=== PATIENT | female | born 1955 | race Caucasian/White ===

== ENCOUNTER 2019-06-16 07:27 | Emergency (ER) | payer BC, SELFPAY ==
--- NOTE | ~2019-06-16 | XR_ITS ---
EXAMINATION: XR shoulder LT min 2V DATE: 06/16/2019 08:39 INDICATION: Left shoulder pain. TECHNIQUE: 4 views of left shoulder were obtained. COMPARISON: None. FINDINGS: Bone alignment is normal. There is a nondisplaced fracture of greater tuberosity. There is mild osteoarthritis of acromioclavicular joint and glenohumeral joint. IMPRESSION: 1. Nondisplaced fracture of greater tuberosity of proximal humerus. 2. Polyarticular osteoarthritis. Reviewed, dictated and finalized at location A. REPAIRER
[2019-06-16 07:35] VITALS: BP 182/83; PULSE 90; RESP 18; TEMP 36.2; O2SAT 98
--- NOTE | 2019-06-16 09:06 | ED.UPPEXIN ---
HPI - Extremity Injury (Upper) General Chief Complaint: Extremity Injury, Upper Stated Complaint: left shoulder injury Time Seen by Provider: 06/16/19 08:06 Source: patient Mode of arrival: ambulatory Limitations: no limitations History of Present Illness HPI narrative: Patient presents with chief complaint of pain to the left shoulder that began yesterday after hyperextending her left shoulder behind her. Patient states since his pain to her shoulder with any range of motion. Patient states she has been up crying due to discomfort throughout the night. Patient states she has been taking ibuprofen every 4 hours without relief. Patient denies any head impact or other areas of injury. Patient denies prior fracture or injury. Related Data Home Medications Medication Instructions Recorded Confirmed atorvastatin 06/16/19 dulaglutide [Trulicity] mg SUBCUT 06/16/19 ferrous sulfate 06/16/19 gabapentin 06/16/19 lisinopril 06/16/19 metformin mg 06/16/19 omeprazole 06/16/19 verapamil mg PO 06/16/19 Allergies Allergy/AdvReac Type Severity Reaction Status Date / Time No Known Allergies Allergy Verified 06/16/19 09:09 Review of Systems Review of Systems: Narrative: CONSTITUTIONAL: Denies fever, chills, or sweats. EYES: Denies visual changes, redness, or discharge. ENT: Denies rhinorrhea, congestion, sore throat, or otalgia. CARDIOVASCULAR: Denies chest pain, palpitations, or edema. RESPIRATORY: Denies cough or dyspnea. GASTROINTESTINAL: Denies abdominal pain, nausea, vomiting, or diarrhea. GENITOURINARY: Denies dysuria or hematuria. SKIN: Denies rash or itching. MUSCULOSKELETAL: Reports left shoulder pain denies back pain, or myalgia. NEUROLOGIC: Denies headache, numbness, dizziness, or weakness. PSYCHIATRIC: Denies anxiety or depression. PMFSH Family History Family History (Updated 08/15/16 @ 23:56 by DOCTOR UNKNOWN) Mother Family history of chronic obstructive pulmonary disease, Onset Age: 73 Patient's mother is Father Patient's father is Social History Social History Second hand tobacco smoke exposure: No Alcohol intake: current Gender identity (if verbalized by the patient): Female Exam Narrative: Exam Narrative: GENERAL: Well-appearing, well-nourished, and in no acute distress. HEAD: Normocephalic, atraumatic. EYES: PERRLA and EOMI. ENT: Nares clear, no rhinorrhea or epistaxis. Mucous membranes moist. Oropharynx without tonsillar hypertrophy exudate or other lesions. Bilateral TMs pearly knapp nonbulging NECK: Supple. No adenopathy or masses. No carotid bruits or JVD CHEST: Clear to auscultation. No respiratory distress. No wheezes rales or rhonchi HEART: Regular rate and rhythm. No murmur heard. Normal peripheral pulses. ABDOMEN: Soft, nontender, nondistended, normal active bowel sounds. EXTREMITIES: Appearance normal. Pain with palpation around the proximal humerus. Range of motion intact but painful especially abduction. No edema. SKIN: Warm, dry, no rash. No ecchymosis or erythema. NEURO: No focal deficits. Alert and oriented x3. PSYCH: Normal mood and affect. Course Vital Signs Vital signs: Vital Signs Temperature 97.2 F L 06/16/19 07:35 Pulse Rate 90 06/16/19 07:35 Respiratory Rate 18 06/16/19 07:35 Blood Pressure 182/83 H 06/16/19 07:35 Pulse Oximetry 98 06/16/19 07:35 Temperature 98.1 F 06/16/19 09:07 Pulse Rate 84 06/16/19 10:07 Respiratory Rate 16 06/16/19 10:07 Blood Pressure 124/72 06/16/19 10:07 Pulse Oximetry 98 06/16/19 10:07 MDM - Extremity Injury (Upper) MDM Narrative Medical decision making narrative: Patient has nondisplaced fractures of the greater tuberosity of her left shoulder. Patient placed in the immobilizer and given referral to follow-up with agricultural systems specialist within 1 week. Patient instructed not to use children's who evaluated and cleared by orthopedic speci
[2019-06-16 09:07] VITALS: BP 127/71; PULSE 85; RESP 20; TEMP 36.7; O2SAT 98
[2019-06-16 10:07] VITALS: BP 124/72; PULSE 84; RESP 16; O2SAT 98
== END 2019-06-16 10:06 | disposition home or self-care (01) ==
PROVIDERS: Emergency Provider Emergency Medicine; PCP Internal Medicine
DX: S42.255A Nondisplaced fracture of greater tuberosity of left humerus, initial encounter for closed fracture (principal); M19.012 Primary osteoarthritis, left shoulder; X50.9XXA Other and unspecified overexertion or strenuous movements or postures, initial encounter
CPT/HCPCS: 73030; 99284

== ENCOUNTER 2020-06-22 09:20 | Emergency (ER) | payer BC, SELFPAY ==
--- NOTE | ~2020-06-22 | US_ITS ---
EXAMINATION: US pelvic complete DATE: 06/22/2020 10:33 INDICATION: Postmenopausal bleeding Comparison:No prior studies for comparison. TECHNIQUE: Multiple transabdominal and endovaginal sonographic images of the pelvis performed. FINDINGS: The uterus measures 7.8 x 6.2 x 4.8 cm. The endometrial complex measures 2.2 cm. The right ovary measures 2.8 x 2 x 2.1 cm and the left ovary is not visualized. There are small folli cles in each ovary.Normal doppler signal in both ovaries. There is no free fluid in the pelvis. There are no abnormal masses seen on either side. IMPRESSION: 1. Thickened endomtrial complex. The differential diagnosis includes endometrial hyperplasia, polyp a nd carcinoma. Biopsy is recommended. Reviewed, dictated and finalized at location B. PS CONSULTANT IMPRESSION: 1. Thickened endomtrial complex. The differential diagnosis includes endometria l hyperplasia, polyp and carcinoma. Biopsy is recommended.
[2020-06-22 09:33] VITALS: BP 204/102; PULSE 105; RESP 16; TEMP 35.7; O2SAT 97
--- NOTE | 2020-06-22 09:46 | ED.FEMALEGU ---
HPI - Female Genitourinary General Chief complaint: Vaginal Bleeding Stated complaint: Vaginal Bleeding Time Seen by Provider: 06/22/20 09:46 Source: patient Mode of arrival: ambulatory Limitations: no limitations History of Present Illness HPI Narrative: 65 years old white female presents with heavy vaginal bleeding with blood clots noticed 7-hour prior to arrival, gradually slowing down. Patient is menopausal for the last 10 years, been having intermittent vaginal bleeding which is mild and usually last 1 or 2 days then resolves. This 1 is the worst. Last vaginal bleeding was 6 months ago. Patient did not see an SIGNAL MAINTAINER for that. Patient denies any fever, chills, nausea, vomiting, abdominal pain, back pain, urinary symptoms. History of diabetes, hypertension, hyperlipidemia, cholecystectomy, does not take blood thinner, smoker, social alcohol intake Related Data Home Medications Medication Instructions Recorded Confirmed ferrous sulfate 06/16/19 04/24/20 Allergies Allergy/AdvReac Type Severity Reaction Status Date / Time No Known Allergies Allergy Verified 06/22/20 09:37 Review of Systems Review of Systems: Narrative: CONSTITUTIONAL: Denies fever, chills, or sweats. EYES: Denies visual changes, redness, or discharge. ENT: Denies rhinorrhea, congestion, sore throat, or otalgia. CARDIOVASCULAR: Denies chest pain, palpitations, or edema. RESPIRATORY: Denies cough or dyspnea. GASTROINTESTINAL: Denies abdominal pain, nausea, vomiting, or diarrhea. GENITOURINARY: Denies dysuria or hematuria. SKIN: Denies rash or itching. MUSCULOSKELETAL: Denies back pain, joint pain, or myalgia. NEUROLOGIC: Denies headache, numbness, or weakness. PSYCHIATRIC: Denies anxiety or depression. [facility] Past Medical History Medical History (Updated 06/22/20 @ 12:29 by Janene Combs MD) Diabetes 1.5, managed as type 2 Greater tuberosity of humerus fracture (06/15/19) Hyperthyroidism Family History Family History Mother Family history of chronic obstructive pulmonary disease, Onset Age: 73 Patient's mother is Father Patient's father is Unknown Hypertension Cancer Social History Social History Smoking packs per day: 1 Smoking cigarettes per day: 20.0 Years smoked: 30 Smoking pack-years: 30.00 Smoking status: Current every day smoker Second hand tobacco smoke exposure: No Alcohol intake: current Substance use: never Gender identity (if verbalized by the patient): Female Exam Narrative: Exam Narrative: General appearance: Well-developed, well-nourished Skin: Normal color Head: Normocephalic, nontraumatic Eyes: Clear conjunctiva ENT: Oropharynx normal, ears normal, nose normal Neck: Supple, nontender Chest and respiratory: Airway patent, no respiratory distress, no accessory muscle use Heart: Regular rate/rhythm Abdomen: Soft, nontender, no organomegaly, quiet bowel sounds Vascular: Normal peripheral pulses, normal capillary refill. Musculoskeletal: Normal range of motion, nontender back Neurologic: Alert and oriented ?3, TRAPPER ANIMAL is normal as tested, no gross motor deficit : External Female Exam: normal external appearance and Abnormal introitus Speculum Exam - Vagina: normal appearance of the vagina and vaginal bleeding (Trace of vaginal blood and a vaginal pouch, not actively bleeding) Speculum Exam - Cervix: normal appearance of the cervix, normal palpation and Cervical os closed Course Course Emergency Course: Stable Consultations Consultation #1: Dr. Pearson/SIGNAL MAINTAINER on-call Cole
--- NOTE | 2020-06-22 10:05 | PC.NURSE ---
pt in ultrasound dept. will start iv and fluids when back in dept
[2020-06-22] MEDS: SODIUM CHLORIDE 0.9% IV 1,000 ML 999 ML IV CONT (10:32)
[2020-06-22 10:43] LABS: Basophils Absolute Auto 0.1 K/mm3 (0.0-0.1); Basophils Percent Auto 0.4 % (0.2-1.2); Eosinophils Absolute Auto 0.1 K/mm3 (0-0.3); Eosinophils Percent Auto 0.8 % (0-4.4); Hematocrit 44.3 % (37.0-47.0); Hemoglobin 14.6 g/dL (12.0-15.0); Immature Granulocyte Absolute 0.06 K/mm3 (0.00-0.031); Immature Granulocyte Percent A 0.5 % (0-0.5); Lymphocytes Absolute Auto 2.81 K/mm3 (0.9-3.2); Lymphocytes Percent Auto 22.3 % (18.3-44.2); Mean Corpuscular Hemoglobin 29.9 pg (26-34); Mean Corpuscular Volume 90.6 fl (80-100); Mean Platelet Volume 12.3 fl (7.4-10.4); Monocytes Absolute Auto 0.7 K/mm3 (0.1-0.6); Monocytes Percent Auto 5.6 % (2.6-8.5); Neutrophils Absolute Auto 8.9 K/mm3 (1.3-6.7); Neutrophils Percent Auto 70.4 % (45.5-73.1); Platelet Count Result 221 k/mm3 (150-375); Red Blood Count 4.89 M/mm3 (4.2-5.4); Red Cell Distribution Width 14.4 % (11.5-14.5); White Blood Count 12.6 K/mm3 (4.5-10.0)
[2020-06-22 10:55] LABS: Alanine Aminotransferase 22 U/L (4-35); Albumin Level 4.2 g/dL (3.5-5.1); Alkaline Phosphatase 63 U/L (38-126); Anion Gap 7 mmol/L (8-16); Aspartate Amino Transferase 26 U/L (14-36); Bilirubin,Total 0.5 mg/dL (0.2-1.3); Blood Urea Nitrogen 10 mg/dL (7-17); Calcium 9.7 mg/dL (8.4-10.2); Carbon Dioxide 26 mmol/L (22-30); Chloride 106 mmol/L (98-107); Estimated CRCL calculation 99 ml/min; Estimated Glomerular Filt Rate > 60; Glucose 187 mg/dL (65-105); Sodium 139 mmol/L (137-145)
--- NOTE | 2020-06-22 11:02 | PC.NURSE ---
knapp and speckled urine tubes sent to lab with pt label. no ua ordered at this time.
[2020-06-22 11:45] VITALS: BP 164/78; PULSE 98; RESP 16; O2SAT 100
[2020-06-22 12:35] VITALS: BP 158/84; PULSE 94; RESP 16; O2SAT 97
== END 2020-06-22 12:35 | disposition home or self-care (01) ==
PROVIDERS: Emergency Provider Emergency Medicine; PCP Internal Medicine
DX: N93.9 Abnormal uterine and vaginal bleeding, unspecified (principal); E13.9 Other specified diabetes mellitus without complications; Z79.84 Long term (current) use of oral hypoglycemic drugs; E05.90 Thyrotoxicosis, unspecified without thyrotoxic crisis or storm; F17.210 Nicotine dependence, cigarettes, uncomplicated; R93.89 Abnormal findings on diagnostic imaging of other specified body structures
CPT/HCPCS: 36415; 76856; 80053; 85025; 86850; 86900; 86901; 96360; 96361; 99284; J7030

== ENCOUNTER 2022-01-30 07:29 | Outpatient (CLI) | payer BC, SELFPAY ==
--- NOTE | ~2022-01-30 | DEXA_ITS ---
Bone Density Report Name: RHONDA WISEMAN Age: 66 Sex: Female Ethnicity: White Date of : 1955 Indication: postmenopausal; screening for osteoporosis; height loss; Referring Provider: Andrea Chandler Study: Bone densitometry was performed. Exam Date: January 30, 2022 Accession number: [id number] Bone Density: Region BMD T-score Z-score Classification AP Spine(L2, L3, L4) 1.007 -0.7 1.2 Normal Femoral Neck (Left) 0.690 -1.4 0.1 Osteopenia Total Hip (Left) 0.855 -0.7 0.5 Normal Femoral Neck (Right) 0.724 -1.1 0.4 Osteopenia Total Hip (Right) 0.800 -1.2 0.1 Osteopenia Femoral Neck Mean 0.707 -1.3 0.2 Osteopenia Total Hip Mean 0.827 -0.9 0.3 Normal World Health Organization criteria for BMD impression classify patients as: Normal (T-score at or above -1.0), Osteopenia (T-score between -1.0 and -2.5), or Osteoporosis (T-score at or below -2.5). 10-year Fracture Risk(1): Major Osteoporotic Fracture 8.2% Hip Fracture 1.3% Reported Risk Factors: [place] (), Neck BMD=0.690, BMI=33.7, smoking (1) FRAX(R) Version 3.08. Fracture probability calculated for an untreated patient. Fracture probability may be lower if the patient has received treatment. Clinical Information Provided by Patient: Smokes Patient maximum height was 63 Menopause Age: 52 No regular weight bearing exercise Drinks caffeinated beverages Onset of menses at age 18 Number of children 1 Impression: The patient has low bone mass, based on the Left Femoral Neck T-score. The patient has risk factors, including: smoking. Discussion: BONE DENSITY IS LOW AT ONE OR MORE SKELETAL SITES. This patient's lowest T-score is low at one or more skeletal sites. It meets the World Health Organization's (WHO) criteria for ?low bone mass? (T-score between -1.0 and -2.5). The patient's 10-year risk of fracture as calculated by FRAX is less than the threshold where pharmacological therapy is recommended by the National Osteoporosis Foundation (NOF). However, all treatment decisions require clinical judgment and consideration of individual patient factors, including patient preferences, comorbidities, previous drug use, risk factors not captured in the FRAX model (e.g., frailty, falls, vitamin D deficiency, increased bone turnover, interval significant decline in bone density) and possible under or overestimation of fracture risk by FRAX. The patient should follow a healthful lifestyle (good nutrition with adequate calcium and vitamin D, and appropriate weight-bearing exercise). Follow-Up: Consider repeating this study in 2 to 3 years to reassess this patient's status, or sooner if there is some new clinical indication. Reported by: Dr. Adiel Hunter on 01/30/2022 8:26:00 AM.
--- NOTE | ~2022-01-30 | MM_ITS ---
EXAMINATION: MM screening christina BI w juan HISTORY: Baseline screening mammogram TECHNIQUE: Craniocaudal and mediolateral oblique 3-D tomosynthesis images were obtained and synthetic 2-D images were generated. CAD analysis was submitted and interpreted. COMPARISON: None, baseline BREAST PARENCHYMAL COMPOSITION: There are scattered areas of fibroglandular density. FINDINGS: There is no suspicious mass, calcification, or architectural distortion to suggest malignan cy in either breast. A mass in the outer left breast appears to contain central fat, consistent with an intramammary lymph node. IMPRESSION: 1. No mammographic evidence of malignancy. 2. Recommend routine screening mammography in one year. BI-RADS Category 2: Benign finding(s). Reviewed, dictated and finalized at location A.
--- NOTE | ~2022-01-30 | XR_ITS ---
XR chest 2V DATE: 01/30/2022 08:35 INDICATION: Chronic cough. Smoker. TECHNIQUE: 2 views COMPARISON: 07/12/2015 PA and lateral chest FINDINGS: Normal heart size. Aortic calcification and mild unfolding. No hilar or mediastinal enlarge ment. No pulmonary infiltrate or consolidation, pleural effusion or pulmonary vascular congestion or pneumo thorax. Osteopenia. Mild scoliosis and degenerative change of the thoracic spine. IMPRESSION: No active cardiopulmonary disease Reviewed, dictated and finalized at location B.
[2022-01-30 07:41] LABS: Basophils Absolute Auto 0.05 K/mm3 (0.00-0.10); Basophils Percent Auto 0.5 % (0.0-1.0); Eosinophils Absolute Auto 0.17 K/mm3 (0.02-0.50); Eosinophils Percent Auto 1.6 % (1.0-6.0); Hematocrit 44.8 % (35.0-49.0); Hemoglobin 14.6 g/dL (12.0-15.0); Immature Granulocyte Absolute 0.05 K/mm3 (0.00-0.00); Immature Granulocyte Percent A 0.5 % (0.0-0.0); Lymphocytes Percent Auto 21.6 % (18.0-42.0); Mean Corpuscular HGB Conc 32.6 g/dL (32.0-36.0); Mean Corpuscular Volume 95.1 fL (78.0-102.0); Mean Platelet Volume 12.3 fl (9.2-11.8); Monocytes Absolute Auto 0.76 K/mm3 (0.10-0.90); Monocytes Percent Auto 7.1 % (2.0-11.0); Neutrophils Absolute Auto 7.3 K/mm3 (1.7-7.2); Neutrophils Percent Auto 68.7 % (50.0-70.0); Platelet Count Result 179 K/mm3 (150-420); Red Blood Count 4.71 M/mm3 (4.20-5.40); Red Cell Distribution Width 13.9 % (11.6-14.4); White Blood Count 10.7 K/mm3 (4.8-10.8)
[2022-01-30 08:16] LABS: Alanine Aminotransferase 20 U/L (14-59); Albumin Level 3.8 g/dL (3.4-5.0); Alkaline Phosphatase 75 U/L (46-116); Anion Gap 7 mmol/L (8-16); Aspartate Amino Transferase 13 U/L (15-37); Bilirubin,Total 0.2 mg/dL (0.00-1.00); Blood Urea Nitrogen 12 mg/dL (7-18); Calcium 8.7 mg/dL (8.5-10.1); Carbon Dioxide 29 mmol/L (21-32); Chloride 105 mmol/L (98-108); Cholesterol 151 mg/dL (0-200); Estimated Glomerular Filt Rate > 60; Glucose 212 mg/dL (70-99); HDL Direct 48 mg/dL (40-60); LDL Cholesterol Calculated 66 mg/dL (<130); Osmolality Calculated 297 mOsm/kg (285-295); Potassium 4.3 mmol/L (3.5-5.1); Sodium 141 mmol/L (136-145); Thyroid Stimulating Hormone 3.49 uIU/mL (0.36-3.74); Total Protein 6.7 g/dL (6.4-8.2); Triglycerides 186 mg/dL (0-150)
[2022-01-30 08:47] LABS: Add Urine Microscopic? YES; Appearance Urine Clear (Clear); Bilirubin Urine Negative (Negative); Blood Urine 2+ (Negative); Color Urine Light Yellow (Yellow); Glucose Urine UA Trace (Negative); Ketones Urine Negative (Negative); Leukocyte Esterase Ur 1+ (Negative); Nitrate Urine Positive (Negative); Protein Urine 2+ (Negative); Specific Grav Ur >= 1.030 (1.010-1.020); Urobilinogen Urine 0.2 mg/dL (0.2-1.0)
[2022-01-30 08:52] LABS: Squamous Epithelial Cell Urine Few /hpf (Few)
[2022-01-30 08:53] LABS: Bacteria Urine 2+ /hpf
== END 2022-01-30 07:30 | disposition home or self-care (01) ==
LOC: CHSIMG 07:30
PROVIDERS: PCP Internal Medicine; Visit Provider Internal Medicine
DX: I10 Essential (primary) hypertension (principal); E78.5 Hyperlipidemia, unspecified; R05.3 Chronic cough; Z12.31 Encounter for screening mammogram for malignant neoplasm of breast
CPT/HCPCS: 36415; 71046; 77063; 77067; 77080; 80053; 80061; 81001; 84443; 85025

== ENCOUNTER 2022-02-14 09:34 | Outpatient (CLI) | payer MEDICARE, SELFPAY ==
--- NOTE | ~2022-02-14 | CT_ITS ---
EXAMINATION:CT lung screening DATE: 02/14/2022 09:53 INDICATION: Persistent history of nicotine dependence. Current smoker with 50 pack year history. TECHNIQUE: Computed tomography (CT) of the chest was performed without intravenous contrast. Automate d exposure control and iterative reconstruction technique were employed. The dose-length product (DLP ) was 279.39 mGy-cm. COMPARISON: None. FINDINGS: There is mild emphysema. There is mild atelectasis on the left. There is a 3 mm nodule in l eft lower lobe. No pleural effusion. The heart size is normal. There are coronary artery calcificatio ns. No pericardial effusion. There is diffuse hepatic steatosis. There is a 1.9 cm mass in left adren al gland measuring low-attenuation, consistent with an adenoma. There are cysts in left kidney measur ing up to 3.4 cm. There are changes of cholecystectomy. There is mild thoracic spondylosis. IMPRESSION: 1. Lung-RADS category 2: Benign appearance or behavior. Continue annual screening with noncontrast lo w-dose chest CT in 12 months. Reviewed, dictated and finalized at location B. IMPRESSION: 1. Lung-RADS category 2: Benign appearance or behavior. Continue annual screeni ng with noncontrast low-dose chest CT in 12 months.
== END 2022-02-14 09:35 | disposition home or self-care (01) ==
LOC: CHSIMG 09:36
PROVIDERS: PCP Internal Medicine; Visit Provider Internal Medicine
DX: Z12.2 Encounter for screening for malignant neoplasm of respiratory organs (principal); Z87.891 Personal history of nicotine dependence
CPT/HCPCS: 71271

== ENCOUNTER 2023-02-02 07:47 | Outpatient (CLI) | payer MEDICARE, MEDICAID, SELFPAY ==
--- NOTE | ~2023-02-02 | MM_ITS ---
EXAMINATION: MM screening [facility] BI w juan HISTORY: Screening mammogram TECHNIQUE: Craniocaudal and mediolateral oblique 3-D tomosynthesis images were obtained and synthetic 2-D images were generated. CAD analysis was submitted and interpreted. COMPARISON: 01/30/2022 bilateral screening mammogram BREAST PARENCHYMAL COMPOSITION: There are scattered areas of fibroglandular density. FINDINGS: New grouped granular microcalcifications are noted in the subareolar area approximately on the left. Diagnostic left mammogram with medication views and left breast ultrasound examination are recommended. Otherwise there is no evidence of suspicious mass, calcification, or architectural distortion to sug gest malignancy in either breast. There has been no other suspicious interval change. IMPRESSION: 1. New grouped granular microcalcifications in the subareolar area of left breast 2. Diagnostic left mammogram with magnification views and left breast ultrasound examination are kena mmended BI-RADS Category 0: Incomplete: Needs additional imaging evaluation. Reviewed, dictated and finalized at location A. IMPRESSION: 1. New grouped granular microcalcifications in the subareolar area of left serge st 2. Diagnostic left mammogram with magnification views and left breast ultrasoun d examination are recommended BI-RADS Category 0: Incomplete: Needs additional imaging evaluation.
== END 2023-02-02 07:48 | disposition home or self-care (01) ==
LOC: CHSIMG 07:49
PROVIDERS: PCP Internal Medicine; Visit Provider Internal Medicine
DX: Z12.31 Encounter for screening mammogram for malignant neoplasm of breast (principal)
CPT/HCPCS: 77063; 77067

== ENCOUNTER 2023-02-10 08:59 | Outpatient (CLI) | payer BC, SELFPAY ==
--- NOTE | ~2023-02-10 | MM_ITS ---
EXAMINATION: MM diagnostic christina LT w juan HISTORY: Left breast calcifications on screening mammogram TECHNIQUE: Additional 3-D tomosynthesis images of the left breast were performed and synthetic 2-D im ages were generated. Magnification views are also obtained. CAD analysis was submitted and interprete d. COMPARISON: 02/02/2023, 01/30/2022 FINDINGS: The calcifications in question are demonstrated to be within the skin of the left breast. N o suspicious mass, calcification, or architectural distortion are identified. IMPRESSION: 1. No mammographic evidence of malignancy. 2. Recommend routine screening mammography in one year. BI-RADS Category 2: Benign finding(s). Reviewed, dictated and finalized at location A.
== END 2023-02-10 09:00 | disposition home or self-care (01) ==
LOC: CHSIMG 09:01
PROVIDERS: PCP Internal Medicine; Visit Provider Internal Medicine
DX: R92.8 Other abnormal and inconclusive findings on diagnostic imaging of breast (principal)
CPT/HCPCS: 77061; 77065; G0279

== ENCOUNTER 2023-03-26 16:16 | Outpatient (CLI) | payer MEDICARE, MEDICAID, SELFPAY ==
[2023-03-26 16:43] LABS: Basophils Absolute Auto 0.04 K/mm3 (0.00-0.10); Basophils Percent Auto 0.3 % (0.0-1.0); Eosinophils Absolute Auto 0.06 K/mm3 (0.02-0.50); Eosinophils Percent Auto 0.5 % (1.0-6.0); Immature Granulocyte Absolute 0.07 K/mm3 (0.00-0.00); Immature Granulocyte Percent A 0.6 % (0.0-0.0); Lymphocytes Absolute Auto 2.39 K/mm3 (1.10-4.50); Mean Corpuscular HGB Conc 31.6 g/dL (32.0-36.0); Mean Corpuscular Hemoglobin 30.3 pg (27.0-31.0); Mean Platelet Volume 11.9 fl (9.2-11.8); Monocytes Percent Auto 7.1 % (2.0-11.0); Neutrophils Absolute Auto 9.1 K/mm3 (1.7-7.2); Neutrophils Percent Auto 72.5 % (50.0-70.0); Platelet Count Result 252 K/mm3 (150-420); Red Blood Count 3.96 M/mm3 (4.20-5.40); Red Cell Distribution Width 14.1 % (11.6-14.4); White Blood Count 12.6 K/mm3 (4.8-10.8)
[2023-03-26 18:34] LABS: Alanine Aminotransferase 8 U/L (14-59); Albumin Level 3.3 g/dL (3.4-5.0); Alkaline Phosphatase 90 U/L (46-116); Amylase 33 U/L (25-115); Anion Gap 9 mmol/L (8-16); Aspartate Amino Transferase 10 U/L (15-37); Bilirubin,Total 0.3 mg/dL (0.00-1.00); Blood Urea Nitrogen 19 mg/dL (7-18); Calcium 8.9 mg/dL (8.5-10.1); Carbon Dioxide 30 mmol/L (21-32); Chloride 103 mmol/L (98-108); Estimated Glomerular Filt Rate > 60; Glucose 174 mg/dL (70-99); Lipase 27 U/L (16-77); Osmolality Calculated 300 mOsm/kg (285-295); Potassium 3.6 mmol/L (3.5-5.1); Sodium 142 mmol/L (136-145); Total Protein 6.3 g/dL (6.4-8.2)
[2023-03-28 21:54] LABS: H pylori, Urea Breath NOT DETECTED (NOT DETECTED)
[2023-03-31 20:12] LABS: Rotavirus Stool Not Detected
== END 2023-03-26 16:17 | disposition home or self-care (01) ==
PROVIDERS: PCP Internal Medicine; Visit Provider Nurse Practitioner Family
DX: R19.7 Diarrhea, unspecified (principal); R10.84 Generalized abdominal pain
CPT/HCPCS: 36415; 80053; 82150; 83013; 83690; 84376; 85025; 87045; 87177; 87209; 87324; 87425; 87427; 87449

== ENCOUNTER 2023-03-30 08:20 | Outpatient (CLI) | payer MEDICARE, MEDICAID, SELFPAY ==
--- NOTE | ~2023-03-30 | CT_ITS ---
EXAMINATION: CT abdomen pelvis w con DATE: 03/30/2023 08:49 INDICATION: Abdominal pain. TECHNIQUE: Computed tomography (CT) of the abdomen and pelvis was performed with 100 mL Omnipaque 350 intravenous contrast. Automated exposure control and iterative reconstruction technique were employe d. The dose-length product was 943.42 mGy-cm. COMPARISON: Chest CT 02/14/2022 FINDINGS: The visualized portions of the lung bases demonstrate mild atelectasis. No pleural effusion . The heart size is normal. No pericardial effusion. The liver is normal. There are changes of cholec ystectomy. The liver, pancreas, and right adrenal gland are normal. There is a 2.2 cm mass in left ad renal gland measuring soft tissue attenuation, stable from 02/14/2022 when it measured low-attenuation on noncontrast CT, consistent with an adenoma. There are cysts in the kidneys measuring up to 4.7 cm on the left. There is liquid stool in the colon. The appendix is not visualized. There is a moderate volume of ascites. There is nodularity in the peritoneum with confluent caking of the greater omentu m and enlargement of the ovaries, consistent with peritoneal carcinomatosis. There is subcutaneous fa t stranding in right lower quadrant, consistent with inflammation. There is mild lumbar spondylosis. IMPRESSION: 1. Peritoneal carcinomatosis with moderate volume of ascites. Diagnostic paracentesis is recommended. Reviewed, dictated and finalized at location E. 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 Peritoneal carcinomatosis with moderate volume of ascites. Diagnostic parace ntesis is recommended.
== END 2023-03-30 08:21 | disposition home or self-care (01) ==
LOC: CHSIMG 08:22
PROVIDERS: PCP Internal Medicine; Visit Provider Internal Medicine
DX: R10.9 Unspecified abdominal pain (principal); C80.0 Disseminated malignant neoplasm, unspecified
CPT/HCPCS: 74177; Q9967

== ENCOUNTER 2023-06-01 08:04 | Outpatient (CLI) | payer MEDICARE, SELFPAY ==
[2023-06-01 08:22] LABS: Basophils Absolute Auto 0.09 K/mm3 (0.00-0.10); Basophils Percent Auto 0.9 % (0.0-1.0); Eosinophils Absolute Auto 0.07 K/mm3 (0.02-0.50); Eosinophils Percent Auto 0.7 % (1.0-6.0); Hematocrit 39.5 % (35.0-42.0); Hemoglobin 12.1 g/dL (11.7-13.8); Immature Granulocyte Absolute 0.08 K/mm3 (0.00-0.00); Immature Granulocyte Percent A 0.8 % (0.0-0.0); Lymphocytes Absolute Auto 2.08 K/mm3 (1.10-4.50); Lymphocytes Percent Auto 21.5 % (18.0-42.0); Mean Corpuscular HGB Conc 30.6 g/dL (32.0-36.0); Mean Corpuscular Hemoglobin 28.1 pg (27.0-31.0); Mean Corpuscular Volume 91.9 fL (78.0-102.0); Mean Platelet Volume 11.7 fl (9.2-11.8); Monocytes Absolute Auto 0.76 K/mm3 (0.10-0.90); Monocytes Percent Auto 7.9 % (2.0-11.0); Neutrophils Absolute Auto 6.6 K/mm3 (1.7-7.2); Neutrophils Percent Auto 68.2 % (50.0-70.0); Platelet Count Result 245 K/mm3 (150-420); Red Cell Distribution Width 17.1 % (11.6-14.4); White Blood Count 9.7 K/mm3 (4.8-10.8)
[2023-06-01 09:09] LABS: Alanine Aminotransferase 17 U/L (14-59); Albumin Level 3.4 g/dL (3.4-5.0); Alkaline Phosphatase 63 U/L (46-116); Anion Gap 9 mmol/L (8-16); Aspartate Amino Transferase 13 U/L (15-37); Bilirubin,Total 0.3 mg/dL (0.00-1.00); Blood Urea Nitrogen 7 mg/dL (7-18); Calcium 8.5 mg/dL (8.5-10.1); Carbon Dioxide 31 mmol/L (21-32); Chloride 100 mmol/L (98-108); Estimated Glomerular Filt Rate > 60; Glucose 159 mg/dL (70-99); Magnesium 1.3 mg/dL (1.8-2.4); Osmolality Calculated 291 mOsm/kg (285-295); Potassium 3.6 mmol/L (3.5-5.1); Sodium 140 mmol/L (136-145); Total Protein 6.4 g/dL (6.4-8.2)
[2023-06-01 09:11] LABS: Thyroid Stimulating Hormone Reflex 3.43 u/IU/mL (0.36-3.74)
[2023-06-04 00:57] LABS: CA-125 1637 U/mL (<35)
== END 2023-06-01 08:05 | disposition home or self-care (01) ==
PROVIDERS: PCP Internal Medicine
DX: C54.1 Malignant neoplasm of endometrium (principal); E11.65 Type 2 diabetes mellitus with hyperglycemia
CPT/HCPCS: 36415; 80053; 83735; 84443; 85025; 86304

== ENCOUNTER 2023-06-23 09:55 | Outpatient (CLI) | payer MEDICARE, SELFPAY ==
[2023-06-23 10:11] LABS: Basophils Absolute Auto 0.07 K/mm3 (0.00-0.10); Basophils Percent Auto 0.7 % (0.0-1.0); Eosinophils Absolute Auto 0.08 K/mm3 (0.02-0.50); Eosinophils Percent Auto 0.8 % (1.0-6.0); Hematocrit 38.9 % (35.0-42.0); Hemoglobin 12.1 g/dL (11.7-13.8); Immature Granulocyte Absolute 0.13 K/mm3 (0.00-0.00); Immature Granulocyte Percent A 1.2 % (0.0-0.0); Lymphocytes Absolute Auto 2.01 K/mm3 (1.10-4.50); Lymphocytes Percent Auto 18.9 % (18.0-42.0); Mean Corpuscular HGB Conc 31.1 g/dL (32.0-36.0); Mean Corpuscular Hemoglobin 28.9 pg (27.0-31.0); Mean Corpuscular Volume 92.8 fL (78.0-102.0); Mean Platelet Volume 11.6 fl (9.2-11.8); Monocytes Percent Auto 8.5 % (2.0-11.0); Neutrophils Absolute Auto 7.4 K/mm3 (1.7-7.2); Neutrophils Percent Auto 69.9 % (50.0-70.0); Platelet Count Result 198 K/mm3 (150-420); Red Blood Count 4.19 M/mm3 (4.20-5.40); Red Cell Distribution Width 17.6 % (11.6-14.4); White Blood Count 10.6 K/mm3 (4.8-10.8)
[2023-06-23 11:31] LABS: Alanine Aminotransferase 21 U/L (14-59); Albumin Level 3.2 g/dL (3.4-5.0); Alkaline Phosphatase 66 U/L (46-116); Anion Gap 11 mmol/L (8-16); Aspartate Amino Transferase 15 U/L (15-37); Bilirubin,Total 0.2 mg/dL (0.00-1.00); Blood Urea Nitrogen 9 mg/dL (7-18); Calcium 8.2 mg/dL (8.5-10.1); Carbon Dioxide 31 mmol/L (21-32); Chloride 103 mmol/L (98-108); Estimated Glomerular Filt Rate > 60; Glucose 213 mg/dL (70-99); Magnesium 1.5 mg/dL (1.8-2.4); Osmolality Calculated 304 mOsm/kg (285-295); Potassium 3.7 mmol/L (3.5-5.1); Sodium 145 mmol/L (136-145); Total Protein 6.2 g/dL (6.4-8.2)
[2023-06-23 11:33] LABS: Free T4 Free Thyroxine Reflex 1.89 ng/dL (0.76-1.46); Thyroid Stimulating Hormone Reflex 0.07 u/IU/mL (0.36-3.74)
[2023-06-26 02:06] LABS: CA-125 1140 U/mL (<35)
== END 2023-06-23 09:56 | disposition home or self-care (01) ==
PROVIDERS: PCP Internal Medicine
DX: C54.1 Malignant neoplasm of endometrium (principal); E11.65 Type 2 diabetes mellitus with hyperglycemia
CPT/HCPCS: 36415; 80053; 83735; 84439; 84443; 85025; 86304

== ENCOUNTER 2023-07-14 08:31 | Outpatient (CLI) | payer MEDICARE, SELFPAY ==
[2023-07-14 08:51] LABS: Basophils Absolute Auto 0.05 K/mm3 (0.00-0.10); Basophils Percent Auto 0.6 % (0.0-1.0); Eosinophils Absolute Auto 0.22 K/mm3 (0.02-0.50); Eosinophils Percent Auto 2.5 % (1.0-6.0); Hematocrit 41.1 % (35.0-42.0); Hemoglobin 13.5 g/dL (11.7-13.8); Immature Granulocyte Absolute 0.04 K/mm3 (0.00-0.00); Immature Granulocyte Percent A 0.5 % (0.0-0.0); Lymphocytes Absolute Auto 2.58 K/mm3 (1.10-4.50); Lymphocytes Percent Auto 29.7 % (18.0-42.0); Mean Corpuscular HGB Conc 32.8 g/dL (32.0-36.0); Mean Corpuscular Hemoglobin 30.1 pg (27.0-31.0); Mean Corpuscular Volume 91.5 fL (78.0-102.0); Mean Platelet Volume 10.7 fl (9.2-11.8); Monocytes Percent Auto 6.9 % (2.0-11.0); Neutrophils Absolute Auto 5.2 K/mm3 (1.7-7.2); Neutrophils Percent Auto 59.8 % (50.0-70.0); Platelet Count Result 193 K/mm3 (150-420); Red Blood Count 4.49 M/mm3 (4.20-5.40); Red Cell Distribution Width 17.5 % (11.6-14.4); White Blood Count 8.7 K/mm3 (4.8-10.8)
[2023-07-14 09:08] LABS: Hemoglobin A1C 6.7 % (<5.7)
[2023-07-14 09:57] LABS: Alanine Aminotransferase 24 U/L (14-59); Albumin Level 3.8 g/dL (3.4-5.0); Alkaline Phosphatase 63 U/L (46-116); Anion Gap 13 mmol/L (8-16); Aspartate Amino Transferase 15 U/L (15-37); Bilirubin,Total 0.3 mg/dL (0.00-1.00); Blood Urea Nitrogen 10 mg/dL (7-18); Calcium 8.8 mg/dL (8.5-10.1); Carbon Dioxide 27 mmol/L (21-32); Chloride 99 mmol/L (98-108); Cholesterol 177 mg/dL (0-200); Estimated Glomerular Filt Rate > 60; Glucose 117 mg/dL (70-99); HDL Direct 63 mg/dL (40-60); LDL Cholesterol Calculated 73 mg/dL (<130); Magnesium 1.3 mg/dL (1.8-2.4); Osmolality Calculated 288 mOsm/kg (285-295); Sodium 139 mmol/L (136-145); Total Protein 6.9 g/dL (6.4-8.2); Triglycerides 207 mg/dL (0-150)
[2023-07-14 10:01] LABS: Free T4 Free Thyroxine Reflex 0.67 ng/dL (0.76-1.46)
[2023-07-16 14:38] LABS: Thyroid Stimulating Immunoglob 226 % baseline (<140)
[2023-07-17 01:25] LABS: CA-125 856 U/mL (<35); Thyroid Peroxidase Antibodies 360 IU/mL (<9)
== END 2023-07-14 08:32 ==
LOC: CHSLAB 08:36
PROVIDERS: PCP Internal Medicine
DX: C54.1 Malignant neoplasm of endometrium (principal); R63.4 Abnormal weight loss; E03.9 Hypothyroidism, unspecified; E11.9 Type 2 diabetes mellitus without complications; E78.5 Hyperlipidemia, unspecified
CPT/HCPCS: 36415; 80053; 80061; 83036; 83735; 84439; 84443; 84445; 85025; 86304; 86376

== ENCOUNTER 2023-08-03 07:44 | Outpatient (CLI) | payer MEDICARE, SELFPAY ==
[2023-08-03 08:25] LABS: Basophils Absolute Auto 0.07 K/mm3 (0.00-0.10); Basophils Percent Auto 1.1 % (0.0-1.0); Eosinophils Absolute Auto 0.25 K/mm3 (0.02-0.50); Eosinophils Percent Auto 4.1 % (1.0-6.0); Hematocrit 37.4 % (35.0-42.0); Hemoglobin 12.2 g/dL (11.7-13.8); Immature Granulocyte Absolute 0.05 K/mm3 (0.00-0.00); Immature Granulocyte Percent A 0.8 % (0.0-0.0); Immature Platelet Fraction Pct 6.8 % (1.0-7.0); Lymphocytes Percent Auto 37.4 % (18.0-42.0); Mean Corpuscular HGB Conc 32.6 g/dL (32-36); Mean Corpuscular Hemoglobin 30.9 pg (27.0-31.0); Mean Corpuscular Volume 94.7 fL (78.0-102.0); Mean Platelet Volume 11.1 fl (9.2-11.8); Monocytes Absolute Auto 0.58 K/mm3 (0.10-0.90); Monocytes Percent Auto 9.4 % (2.0-11.0); Neutrophils Percent Auto 47.2 % (50.0-70.0); Platelet Count Result 123 K/mm3 (150-420); Red Blood Count 3.95 M/mm3 (4.20-5.40); Red Cell Distribution Width 19.3 % (11.6-14.4); White Blood Count 6.2 K/mm3 (4.8-10.8)
[2023-08-03 10:45] LABS: Alanine Aminotransferase 24 U/L (14-59); Alkaline Phosphatase 58 U/L (46-116); Anion Gap 12 mmol/L (8-16); Aspartate Amino Transferase 13 U/L (15-37); Bilirubin,Total 0.3 mg/dL (0.00-1.00); Blood Urea Nitrogen 15 mg/dL (7-18); Calcium 9.2 mg/dL (8.5-10.1); Carbon Dioxide 28 mmol/L (21-32); Chloride 100 mmol/L (98-108); Estimated Glomerular Filt Rate > 60; Glucose 161 mg/dL (70-99); Magnesium 1.6 mg/dL (1.8-2.4); Osmolality Calculated 293 mOsm/kg (285-295); Potassium 4.2 mmol/L (3.5-5.1); Sodium 140 mmol/L (136-145); Total Protein 6.8 g/dL (6.4-8.2)
[2023-08-03 11:18] LABS: Free T3 1.09 pg/mL (2.18-3.98); Thyroid Stimulating Hormone 94.61 uIU/mL (0.36-3.74)
[2023-08-06 03:08] LABS: Thyroid Peroxidase Antibodies 527 IU/mL (<9)
[2023-08-06 04:26] LABS: CA-125 533 U/mL (<35)
== END 2023-08-03 07:45 | disposition home or self-care (01) ==
LOC: CHSLAB 07:47
PROVIDERS: PCP Internal Medicine
DX: C54.1 Malignant neoplasm of endometrium (principal); R63.4 Abnormal weight loss; E03.9 Hypothyroidism, unspecified; E11.9 Type 2 diabetes mellitus without complications
CPT/HCPCS: 36415; 80053; 83735; 84439; 84443; 84481; 85025; 85055; 86304; 86376

== ENCOUNTER 2023-08-24 08:11 | Outpatient (CLI) | payer MEDICARE, SELFPAY ==
[2023-08-24 08:37] LABS: Basophils Absolute Auto 0.08 K/mm3 (0.00-0.10); Basophils Percent Auto 1.3 % (0.0-1.0); Eosinophils Absolute Auto 0.15 K/mm3 (0.02-0.50); Eosinophils Percent Auto 2.4 % (1.0-6.0); Hematocrit 36.9 % (35.0-42.0); Hemoglobin 11.6 g/dL (11.7-13.8); Immature Granulocyte Absolute 0.12 K/mm3 (0.00-0.00); Immature Granulocyte Percent A 1.9 % (0.0-0.0); Lymphocytes Absolute Auto 1.56 K/mm3 (1.10-4.50); Mean Corpuscular HGB Conc 31.4 g/dL (32-36); Mean Corpuscular Hemoglobin 32.2 pg (27.0-31.0); Mean Corpuscular Volume 102.5 fL (78.0-102.0); Monocytes Absolute Auto 0.79 K/mm3 (0.10-0.90); Monocytes Percent Auto 12.6 % (2.0-11.0); Neutrophils Absolute Auto 3.55 K/mm3 (1.70-7.20); Neutrophils Percent Auto 56.8 % (50.0-70.0); Platelet Count Result 125 K/mm3 (150-420); White Blood Count 6.3 K/mm3 (4.8-10.8)
[2023-08-24 09:17] LABS: Alanine Aminotransferase 28 U/L (14-59); Albumin Level 3.8 g/dL (3.4-5.0); Alkaline Phosphatase 57 U/L (46-116); Anion Gap 7 mmol/L (4-12); Aspartate Amino Transferase 26 U/L (15-37); Bilirubin,Total 0.3 mg/dL (0.00-1.00); Blood Urea Nitrogen 14 mg/dL (7-18); Calcium 8.9 mg/dL (8.5-10.1); Carbon Dioxide 30 mmol/L (21-32); Chloride 103 mmol/L (98-108); Estimated Glomerular Filt Rate > 60; Free T3 1.09 pg/mL (2.18-3.98); Glucose 158 mg/dL (70-99); Magnesium 1.6 mg/dL (1.8-2.4); Osmolality Calculated 293 mOsm/kg (285-295); Potassium 4.3 mmol/L (3.5-5.1); Sodium 140 mmol/L (136-145); Thyroid Stimulating Hormone 64.97 uIU/mL (0.36-3.74); Total Protein 6.6 g/dL (6.4-8.2)
[2023-08-26 08:43] LABS: Thyroid Peroxidase Antibodies 525 IU/mL (<9)
[2023-09-02 06:51] LABS: CA-125 471
== END 2023-08-24 08:12 | disposition home or self-care (01) ==
PROVIDERS: PCP Internal Medicine
DX: C54.1 Malignant neoplasm of endometrium (principal); E03.9 Hypothyroidism, unspecified; E11.9 Type 2 diabetes mellitus without complications; R63.4 Abnormal weight loss
CPT/HCPCS: 36415; 80053; 83735; 84439; 84443; 84481; 85025; 86304; 86376

== ENCOUNTER 2023-10-15 11:11 | Outpatient (CLI) | payer MEDICARE, SELFPAY ==
[2023-10-15 11:40] LABS: Basophils Absolute Auto 0.03 K/mm3 (0.00-0.10); Basophils Percent Auto 0.5 % (0.0-1.0); Eosinophils Absolute Auto 0.07 K/mm3 (0.02-0.50); Eosinophils Percent Auto 1.2 % (1.0-6.0); Hematocrit 42.2 % (35.0-42.0); Hemoglobin 14.2 g/dL (11.7-13.8); Immature Granulocyte Absolute 0.03 K/mm3 (0.00-0.00); Immature Granulocyte Percent A 0.5 % (0.0-0.0); Lymphocytes Percent Auto 31.4 % (18.0-42.0); Mean Corpuscular HGB Conc 33.6 g/dL (32-36); Mean Corpuscular Hemoglobin 34.6 pg (27.0-31.0); Mean Corpuscular Volume 102.9 fL (78.0-102.0); Mean Platelet Volume 11.1 fl (9.2-11.8); Monocytes Absolute Auto 0.45 K/mm3 (0.10-0.90); Monocytes Percent Auto 7.4 % (2.0-11.0); Neutrophils Absolute Auto 3.57 K/mm3 (1.70-7.20); Platelet Count Result 129 K/mm3 (150-420); Red Cell Distribution Width 13.4 % (11.6-14.4); White Blood Count 6.1 K/mm3 (4.8-10.8)
[2023-10-15 12:14] LABS: Alanine Aminotransferase 21 U/L (14-59); Albumin Level 3.5 g/dL (3.4-5.0); Alkaline Phosphatase 60 U/L (46-116); Anion Gap 10 mmol/L (4-12); Aspartate Amino Transferase 16 U/L (15-37); Bilirubin,Total 0.3 mg/dL (0.00-1.00); Blood Urea Nitrogen 15 mg/dL (7-18); Carbon Dioxide 29 mmol/L (21-32); Chloride 101 mmol/L (98-108); Estimated Glomerular Filt Rate > 60; Glucose 341 mg/dL (70-99); Magnesium 1.3 mg/dL (1.8-2.4); Osmolality Calculated 303 mOsm/kg (285-295); Potassium 4.3 mmol/L (3.5-5.1); Sodium 140 mmol/L (136-145); Total Protein 6.4 g/dL (6.4-8.2)
[2023-10-15 12:44] LABS: Thyroid Stimulating Hormone Reflex 0.82 u/IU/mL (0.36-3.74)
[2023-10-17 05:53] LABS: CA-125 304 U/mL (<35)
[2023-10-20 12:07] LABS: Hemoglobin A1C 9.3 % (<5.7)
== END 2023-10-15 11:12 | disposition home or self-care (01) ==
LOC: CHSLAB 11:14
PROVIDERS: PCP Internal Medicine
DX: C54.1 Malignant neoplasm of endometrium (principal); E11.65 Type 2 diabetes mellitus with hyperglycemia
CPT/HCPCS: 36415; 80053; 83036; 83735; 84443; 85025; 86304

== ENCOUNTER 2023-11-05 07:35 | Outpatient (CLI) | payer MEDICARE, SELFPAY ==
[2023-11-05 07:55] LABS: Basophils Absolute Auto 0.03 K/mm3 (0.00-0.10); Basophils Percent Auto 0.5 % (0.0-1.0); Eosinophils Absolute Auto 0.09 K/mm3 (0.02-0.50); Eosinophils Percent Auto 1.6 % (1.0-6.0); Hematocrit 42.2 % (35.0-42.0); Hemoglobin 14.9 g/dL (11.7-13.8); Immature Granulocyte Absolute 0.02 K/mm3 (0.00-0.00); Immature Granulocyte Percent A 0.4 % (0.0-0.0); Lymphocytes Absolute Auto 2.34 K/mm3 (1.10-4.50); Lymphocytes Percent Auto 41.1 % (18.0-42.0); Mean Corpuscular HGB Conc 35.3 g/dL (32-36); Mean Corpuscular Hemoglobin 36.3 pg (27.0-31.0); Mean Corpuscular Volume 102.9 fL (78.0-102.0); Monocytes Absolute Auto 0.46 K/mm3 (0.10-0.90); Monocytes Percent Auto 8.1 % (2.0-11.0); Neutrophils Absolute Auto 2.75 K/mm3 (1.70-7.20); Neutrophils Percent Auto 48.3 % (50.0-70.0); Platelet Count Result 146 K/mm3 (150-420); Red Cell Distribution Width 13.5 % (11.6-14.4); White Blood Count 5.7 K/mm3 (4.8-10.8)
[2023-11-05 08:34] LABS: Alanine Aminotransferase 24 U/L (14-59); Albumin Level 3.7 g/dL (3.4-5.0); Alkaline Phosphatase 56 U/L (46-116); Anion Gap 8 mmol/L (4-12); Aspartate Amino Transferase 17 U/L (15-37); Bilirubin,Total 0.3 mg/dL (0.00-1.00); Blood Urea Nitrogen 16 mg/dL (7-18); Calcium 9.1 mg/dL (8.5-10.1); Carbon Dioxide 31 mmol/L (21-32); Chloride 98 mmol/L (98-108); Estimated Glomerular Filt Rate > 60; Glucose 171 mg/dL (70-99); Magnesium 1.4 mg/dL (1.8-2.4); Osmolality Calculated 289 mOsm/kg (285-295); Potassium 3.8 mmol/L (3.5-5.1); Sodium 137 mmol/L (136-145); Thyroid Stimulating Hormone 92.61 uIU/mL (0.36-3.74); Total Protein 6.7 g/dL (6.4-8.2)
[2023-11-05 09:10] LABS: Free T4 Free Thyroxine 0.45 ng/dL (0.76-1.46)
[2023-11-07 06:24] LABS: CA-125 319 U/mL (<35)
[2023-11-09 13:33] LABS: Thyroid Peroxidase Antibodies 316 IU/mL (<9)
== END 2023-11-05 07:36 | disposition home or self-care (01) ==
LOC: CHSLAB 07:38
PROVIDERS: PCP Internal Medicine
DX: C54.1 Malignant neoplasm of endometrium (principal); E11.65 Type 2 diabetes mellitus with hyperglycemia
CPT/HCPCS: 36415; 80053; 83735; 84439; 84443; 85025; 86304; 86376

== ENCOUNTER 2023-11-26 11:43 | Outpatient (CLI) | payer MEDICARE, SELFPAY ==
[2023-11-26 12:29] LABS: Basophils Absolute Auto 0.03 K/mm3 (0.00-0.10); Basophils Percent Auto 0.4 % (0.0-1.0); Eosinophils Absolute Auto 0.07 K/mm3 (0.02-0.50); Hematocrit 35.8 % (35.0-42.0); Hemoglobin 12.5 g/dL (11.7-13.8); Immature Granulocyte Absolute 0.03 K/mm3 (0.00-0.00); Immature Granulocyte Percent A 0.4 % (0.0-0.0); Lymphocytes Percent Auto 28.6 % (18.0-42.0); Mean Corpuscular HGB Conc 34.9 g/dL (32-36); Mean Corpuscular Hemoglobin 36.3 pg (27.0-31.0); Mean Corpuscular Volume 104.1 fL (78.0-102.0); Mean Platelet Volume 11.2 fl (9.2-11.8); Monocytes Absolute Auto 0.59 K/mm3 (0.10-0.90); Monocytes Percent Auto 8.4 % (2.0-11.0); Neutrophils Absolute Auto 4.27 K/mm3 (1.70-7.20); Neutrophils Percent Auto 61.2 % (50.0-70.0); Platelet Count Result 157 K/mm3 (150-420); Red Blood Count 3.44 M/mm3 (4.20-5.40); Red Cell Distribution Width 14.8 % (11.6-14.4)
[2023-11-26 13:25] LABS: Alanine Aminotransferase 19 U/L (14-59); Albumin Level 3.4 g/dL (3.4-5.0); Alkaline Phosphatase 57 U/L (46-116); Anion Gap 8 mmol/L (4-12); Aspartate Amino Transferase 17 U/L (15-37); Bilirubin,Total 0.4 mg/dL (0.00-1.00); Blood Urea Nitrogen 17 mg/dL (7-18); Calcium 8.9 mg/dL (8.5-10.1); Carbon Dioxide 30 mmol/L (21-32); Chloride 101 mmol/L (98-108); Estimated Glomerular Filt Rate > 60; Free T4 Free Thyroxine 0.57 ng/dL (0.76-1.46); Glucose 197 mg/dL (70-99); Magnesium 1.4 mg/dL (1.8-2.4); Osmolality Calculated 294 mOsm/kg (285-295); Potassium 4.1 mmol/L (3.5-5.1); Sodium 139 mmol/L (136-145); Thyroid Stimulating Hormone 82.43 uIU/mL (0.36-3.74); Total Protein 6.1 g/dL (6.4-8.2)
[2023-11-28 06:54] LABS: CA-125 330 U/mL (<35)
[2023-11-30 13:12] LABS: Thyroid Peroxidase Antibodies 186 IU/mL (<9)
== END 2023-11-26 11:44 | disposition home or self-care (01) ==
LOC: CHSLAB 11:49
PROVIDERS: PCP Internal Medicine
DX: C54.1 Malignant neoplasm of endometrium (principal); E11.65 Type 2 diabetes mellitus with hyperglycemia
CPT/HCPCS: 36415; 80053; 83735; 84439; 84443; 85025; 86304; 86376

== ENCOUNTER 2023-12-21 08:53 | Outpatient (CLI) | payer MEDICARE, SELFPAY ==
[2023-12-21 09:15] LABS: Basophils Absolute Auto 0.04 K/mm3 (0.00-0.10); Basophils Percent Auto 0.6 % (0.0-1.0); Eosinophils Percent Auto 1.5 % (1.0-6.0); Hemoglobin 13.6 g/dL (11.7-13.8); Immature Granulocyte Absolute 0.05 K/mm3 (0.00-0.00); Immature Granulocyte Percent A 0.8 % (0.0-0.0); Lymphocytes Percent Auto 28.8 % (18.0-42.0); Mean Corpuscular Hemoglobin 36.4 pg (27.0-31.0); Monocytes Absolute Auto 0.59 K/mm3 (0.10-0.90); Neutrophils Absolute Auto 3.91 K/mm3 (1.70-7.20); Neutrophils Percent Auto 59.3 % (50.0-70.0); Platelet Count Result 156 K/mm3 (150-420); Red Blood Count 3.74 M/mm3 (4.20-5.40); Red Cell Distribution Width 15.1 % (11.6-14.4); White Blood Count 6.6 K/mm3 (4.8-10.8)
[2023-12-21 10:38] LABS: Alanine Aminotransferase 20 U/L (14-59); Albumin Level 3.6 g/dL (3.4-5.0); Alkaline Phosphatase 69 U/L (46-116); Anion Gap 9 mmol/L (4-12); Aspartate Amino Transferase 15 U/L (15-37); Bilirubin,Total 0.3 mg/dL (0.00-1.00); Blood Urea Nitrogen 12 mg/dL (7-18); Calcium 8.8 mg/dL (8.5-10.1); Carbon Dioxide 31 mmol/L (21-32); Chloride 100 mmol/L (98-108); Estimated Glomerular Filt Rate > 60; Glucose 212 mg/dL (70-99); Osmolality Calculated 295 mOsm/kg (285-295); Sodium 140 mmol/L (136-145); Thyroid Stimulating Hormone 12.08 uIU/mL (0.36-3.74); Total Protein 6.4 g/dL (6.4-8.2)
[2023-12-21 11:16] LABS: Free T4 Free Thyroxine 1.18 ng/dL (0.76-1.46)
[2023-12-23 05:48] LABS: CA-125 518 U/mL (<35)
[2023-12-24 07:58] LABS: Thyroid Peroxidase Antibodies 214 IU/mL (<9)
== END 2023-12-21 08:54 | disposition home or self-care (01) ==
LOC: CHSLAB 08:56
PROVIDERS: PCP Internal Medicine
DX: C54.1 Malignant neoplasm of endometrium (principal); E11.65 Type 2 diabetes mellitus with hyperglycemia
CPT/HCPCS: 36415; 80053; 84439; 84443; 85025; 86304; 86376

== ENCOUNTER 2024-02-01 09:29 | Outpatient (CLI) | payer MEDICARE, SELFPAY ==
--- NOTE | ~2024-02-01 | CT_ITS ---
CT brain wo con Ordering provider: Andrea Geraldine History: 68 years Female with . FALL WITH HEAD INJURY-LT SIDE,X1WK AGO,?LOC . Comparison: None. Technique: CT of the head without contrast. Radiation reduction technique utilized.The dose-length product was 605.33 mGy-cm. FINDINGS: BRAIN PARENCHYMA AND CSF SPACES: Mild leukoaraiosis and diffuse cortical atrophy. Mild atheromatous d isease. No midline shift, mass effect or hemorrhage. The brain parenchyma and CSF spaces are otherwise norm al. VISUALIZED PARANASAL SINUSES: Right sphenoid sinus disease. Left ethmoid sinus disease. MASTOIDS: Well aerated. BONES: The bones appear intact. SOFT TISSUES: Visualized nasopharynx is normal. Superficial soft tissues are normal. IMPRESSION: No acute intracranial findings. Reviewed, dictated and finalized at location A.
--- NOTE | ~2024-02-01 | CT_ITS ---
CT facial bones wo con Ordering provider: Sandra Duncan History: . FALL X1WK AGO,LT SIDE FACE INJURY ORBIT THRU CHEEK . Comparison: None. Technique: Thin slice axial CT of the facial bones was performed without contrast. Coronal and sagit lorenzo reformatted images were also obtained. . Automated exposure control and iterative reconstruction technique were employed. The dose-length product was 485.16 mGy-cm. FINDINGS: PARANASAL SINUSES: Bilateral maxillary, left ethmoid on the right sphenoid sinus. Obliteration of the left ostiomeatal complex. BONES: No facial fracture including no nasal bone fracture. Mild left nasal septal deviation. ORBITS AND SUPERFICIAL SOFT TISSUES: The optic globes and orbits are normal. The superficial soft tis sues are normal. Slight thickening in the left lower lid area. VISUALIZED MASTOIDS: Well aerated. LIMITED VISUALIZED BRAIN PARENCHYMA: Normal. Bilateral carotid calcification. Sob mandibular lymph nodes the largest on the right measures 1.1 cm. IMPRESSION: No facial fracture. Reviewed, dictated and finalized at location A. IMPRESSION: No facial fracture.
--- NOTE | ~2024-02-01 | XR_ITS ---
EXAMINATION: XR ribs LT 2V w CXR 2V DATE: 02/01/2024 11:59 INDICATION: Left rib pain. Fall. Shortness of breath. TECHNIQUE: Frontal and lateral views of the chest and 2 views on 3 radiographs of the left ribs were obtained. COMPARISON: Chest 2 views 01/30/2022 FINDINGS: CHEST TWO VIEWS: There is no pneumonia, pleural effusion, or pneumothorax. The heart size is normal. There is a right internal jugular port with tip in superior vena cava. LEFT RIBS: There are old healed fractures of left fourth-sixth ribs. IMPRESSION: 1. No acute rib fracture. Reviewed, dictated and finalized at location A. IMPRESSION: 1. No acute rib fracture.
[2024-02-01 09:45] LABS: Basophils Absolute Auto 0.03 K/mm3 (0.00-0.10); Basophils Percent Auto 0.5 % (0.0-1.0); Eosinophils Absolute Auto 0.03 K/mm3 (0.02-0.50); Eosinophils Percent Auto 0.5 % (1.0-6.0); Hematocrit 42.6 % (35.0-42.0); Hemoglobin 14.8 g/dL (11.7-13.8); Immature Granulocyte Absolute 0.04 K/mm3 (0.00-0.00); Immature Granulocyte Percent A 0.7 % (0.0-0.0); Immature Platelet Fraction Pct 4.8 % (1.0-7.0); Lymphocytes Absolute Auto 1.36 K/mm3 (1.10-4.50); Lymphocytes Percent Auto 24.3 % (18.0-42.0); Mean Corpuscular HGB Conc 34.7 g/dL (32-36); Mean Corpuscular Hemoglobin 34.3 pg (27.0-31.0); Mean Corpuscular Volume 98.6 fL (78.0-102.0); Mean Platelet Volume 10.9 fl (9.2-11.8); Monocytes Percent Auto 10.7 % (2.0-11.0); Neutrophils Absolute Auto 3.54 K/mm3 (1.70-7.20); Neutrophils Percent Auto 63.3 % (50.0-70.0); Platelet Count Result 81 K/mm3 (150-420); Red Blood Count 4.32 M/mm3 (4.20-5.40); Red Cell Distribution Width 12.4 % (11.6-14.4); White Blood Count 5.6 K/mm3 (4.8-10.8)
[2024-02-01 10:25] LABS: Alanine Aminotransferase 27 U/L (14-59); Albumin Level 3.5 g/dL (3.4-5.0); Alkaline Phosphatase 78 U/L (46-116); Anion Gap 8 mmol/L (4-12); Aspartate Amino Transferase 16 U/L (15-37); Bilirubin,Total 0.4 mg/dL (0.00-1.00); Blood Urea Nitrogen 16 mg/dL (7-18); Calcium 8.5 mg/dL (8.5-10.1); Carbon Dioxide 30 mmol/L (21-32); Chloride 101 mmol/L (98-108); Estimated Glomerular Filt Rate > 60; Glucose 212 mg/dL (70-99); Magnesium 1.6 mg/dL (1.8-2.4); Osmolality Calculated 295 mOsm/kg (285-295); Potassium 3.6 mmol/L (3.5-5.1); Sodium 139 mmol/L (136-145); Total Protein 6.5 g/dL (6.4-8.2)
[2024-02-03 03:24] LABS: CA-125 443 U/mL (<35)
[2024-02-03 12:14] LABS: Free T4 Q 1.1 ng/dL (0.8-1.8); TSH QUEST 15.67 mIU/L (0.40-4.50)
[2024-02-05 08:58] LABS: Thyroid Peroxidase Antibodies 126 IU/mL (<9)
== END 2024-02-01 09:30 | disposition home or self-care (01) ==
PROVIDERS: PCP Internal Medicine
DX: C54.1 Malignant neoplasm of endometrium (principal); S09.90XA Unspecified injury of head, initial encounter; R07.81 Pleurodynia; E03.9 Hypothyroidism, unspecified; E11.9 Type 2 diabetes mellitus without complications; R63.4 Abnormal weight loss
CPT/HCPCS: 36415; 70450; 70486; 71046; 71100; 80053; 83735; 84439; 84443; 84481; 85025; 85055; 86304; 86376

== ENCOUNTER 2024-02-09 10:20 | Outpatient (CLI) | payer MEDICARE, SELFPAY ==
[2024-02-09 10:44] LABS: Basophils Absolute Auto 0.06 K/mm3 (0.00-0.10); Basophils Percent Auto 0.6 % (0.0-1.0); Eosinophils Absolute Auto 0.18 K/mm3 (0.02-0.50); Eosinophils Percent Auto 1.7 % (1.0-6.0); Hematocrit 38.2 % (35.0-42.0); Hemoglobin 13.5 g/dL (11.7-13.8); Lymphocytes Percent Auto 25.8 % (18.0-42.0); Mean Corpuscular HGB Conc 35.3 g/dL (32-36); Mean Corpuscular Hemoglobin 34.8 pg (27.0-31.0); Mean Corpuscular Volume 98.5 fL (78.0-102.0); Mean Platelet Volume 10.4 fl (9.2-11.8); Monocytes Absolute Auto 0.71 K/mm3 (0.10-0.90); Monocytes Percent Auto 6.8 % (2.0-11.0); Neutrophils Absolute Auto 6.72 K/mm3 (1.70-7.20); Neutrophils Percent Auto 64.1 % (50.0-70.0); Platelet Count Result 279 K/mm3 (150-420); Red Blood Count 3.88 M/mm3 (4.20-5.40); Red Cell Distribution Width 13.2 % (11.6-14.4); White Blood Count 10.5 K/mm3 (4.8-10.8)
[2024-02-09 11:50] LABS: Alanine Aminotransferase 22 U/L (14-59); Albumin Level 3.3 g/dL (3.4-5.0); Alkaline Phosphatase 76 U/L (46-116); Anion Gap 8 mmol/L (4-12); Aspartate Amino Transferase 10 U/L (15-37); Bilirubin,Total 0.4 mg/dL (0.00-1.00); Blood Urea Nitrogen 15 mg/dL (7-18); Calcium 9.1 mg/dL (8.5-10.1); Carbon Dioxide 28 mmol/L (21-32); Chloride 101 mmol/L (98-108); Estimated Glomerular Filt Rate > 60; Glucose 387 mg/dL (70-99); Magnesium 1.9 mg/dL (1.8-2.4); Osmolality Calculated 300 mOsm/kg (285-295); Potassium 4.2 mmol/L (3.5-5.1); Sodium 137 mmol/L (136-145); Thyroid Stimulating Hormone 19.04 uIU/mL (0.36-3.74); Total Protein 6.3 g/dL (6.4-8.2)
[2024-02-11 07:35] LABS: CA-125 382 U/mL (<35)
== END 2024-02-09 10:21 | disposition home or self-care (01) ==
LOC: CHSLAB 10:23
PROVIDERS: PCP Internal Medicine
DX: C54.1 Malignant neoplasm of endometrium (principal); E11.65 Type 2 diabetes mellitus with hyperglycemia
CPT/HCPCS: 36415; 80053; 83735; 84443; 85025; 86304

== ENCOUNTER 2024-02-29 08:39 | Outpatient (CLI) | payer MEDICARE, SELFPAY ==
[2024-02-29 09:05] LABS: Basophils Absolute Auto 0.06 K/mm3 (0.00-0.10); Basophils Percent Auto 0.6 % (0.0-1.0); Eosinophils Absolute Auto 0.33 K/mm3 (0.02-0.50); Eosinophils Percent Auto 3.2 % (1.0-6.0); Hematocrit 42.5 % (35.0-42.0); Hemoglobin 14.9 g/dL (11.7-13.8); Immature Granulocyte Absolute 0.05 K/mm3 (0.00-0.00); Immature Granulocyte Percent A 0.5 % (0.0-0.0); Lymphocytes Absolute Auto 2.68 K/mm3 (1.10-4.50); Lymphocytes Percent Auto 25.9 % (18.0-42.0); Mean Corpuscular HGB Conc 35.1 g/dL (32-36); Mean Corpuscular Hemoglobin 35.2 pg (27.0-31.0); Mean Corpuscular Volume 100.5 fL (78.0-102.0); Mean Platelet Volume 11.7 fl (9.2-11.8); Monocytes Absolute Auto 0.73 K/mm3 (0.10-0.90); Monocytes Percent Auto 7.1 % (2.0-11.0); Neutrophils Absolute Auto 6.49 K/mm3 (1.70-7.20); Neutrophils Percent Auto 62.7 % (50.0-70.0); Platelet Count Result 207 K/mm3 (150-420); Red Blood Count 4.23 M/mm3 (4.20-5.40); Red Cell Distribution Width 14.3 % (11.6-14.4); White Blood Count 10.3 K/mm3 (4.8-10.8)
[2024-02-29 09:54] LABS: Alanine Aminotransferase 20 U/L (14-59); Albumin Level 3.4 g/dL (3.4-5.0); Alkaline Phosphatase 73 U/L (46-116); Anion Gap 9 mmol/L (4-12); Aspartate Amino Transferase < 10 U/L (15-37); Bilirubin,Total 0.4 mg/dL (0.00-1.00); Blood Urea Nitrogen 17 mg/dL (7-18); Carbon Dioxide 26 mmol/L (21-32); Chloride 101 mmol/L (98-108); Estimated Glomerular Filt Rate > 60; Glucose 370 mg/dL (70-99); Magnesium 1.8 mg/dL (1.8-2.4); Osmolality Calculated 298 mOsm/kg (285-295); Sodium 136 mmol/L (136-145); Total Protein 6.4 g/dL (6.4-8.2)
[2024-03-01 10:20] LABS: Hemoglobin A1C 9.9 % (<5.7)
[2024-03-02 01:44] LABS: TSH QUEST 1.99 mIU/L (0.40-4.50)
[2024-03-02 06:19] LABS: CA-125 335 U/mL (<35)
== END 2024-02-29 08:40 | disposition home or self-care (01) ==
LOC: CHSLAB 08:43
PROVIDERS: PCP Internal Medicine
DX: C54.1 Malignant neoplasm of endometrium (principal); E11.65 Type 2 diabetes mellitus with hyperglycemia
CPT/HCPCS: 36415; 80053; 83036; 83735; 84439; 84443; 84481; 85025; 86304; 86376

== ENCOUNTER 2024-03-21 09:45 | Outpatient (CLI) | payer MEDICARE, SELFPAY ==
[2024-03-21 10:11] LABS: Basophils Absolute Auto 0.06 K/mm3 (0.00-0.10); Basophils Percent Auto 0.5 % (0.0-1.0); Eosinophils Absolute Auto 0.39 K/mm3 (0.02-0.50); Eosinophils Percent Auto 3.5 % (1.0-6.0); Hematocrit 43.3 % (35.0-42.0); Hemoglobin 15.3 g/dL (11.7-13.8); Immature Granulocyte Absolute 0.09 K/mm3 (0.00-0.00); Immature Granulocyte Percent A 0.8 % (0.0-0.0); Lymphocytes Absolute Auto 2.55 K/mm3 (1.10-4.50); Mean Corpuscular HGB Conc 35.3 g/dL (32-36); Mean Corpuscular Hemoglobin 34.2 pg (27.0-31.0); Mean Corpuscular Volume 96.7 fL (78.0-102.0); Mean Platelet Volume 11.6 fl (9.2-11.8); Monocytes Absolute Auto 0.68 K/mm3 (0.10-0.90); Monocytes Percent Auto 6.1 % (2.0-11.0); Neutrophils Absolute Auto 7.34 K/mm3 (1.70-7.20); Neutrophils Percent Auto 66.1 % (50.0-70.0); Platelet Count Result 165 K/mm3 (150-420); Red Blood Count 4.48 M/mm3 (4.20-5.40); Red Cell Distribution Width 12.7 % (11.6-14.4); White Blood Count 11.1 K/mm3 (4.8-10.8)
[2024-03-21 13:51] LABS: Alanine Aminotransferase 18 U/L (14-59); Albumin Level 3.3 g/dL (3.4-5.0); Alkaline Phosphatase 80 U/L (46-116); Anion Gap 13 mmol/L (4-12); Aspartate Amino Transferase 10 U/L (15-37); Bilirubin,Total 0.3 mg/dL (0.00-1.00); Blood Urea Nitrogen 15 mg/dL (7-18); Carbon Dioxide 25 mmol/L (21-32); Chloride 104 mmol/L (98-108); Estimated Glomerular Filt Rate > 60; Glucose 292 mg/dL (70-99); Magnesium 1.8 mg/dL (1.8-2.4); Osmolality Calculated 305 mOsm/kg (285-295); Sodium 142 mmol/L (136-145); Total Protein 6.2 g/dL (6.4-8.2)
[2024-03-23 04:04] LABS: CA-125 248 U/mL (<35)
[2024-03-24 04:33] LABS: Free T4 Q 1.1 ng/dL (0.8-1.8)
[2024-03-24 14:28] LABS: Thyroid Peroxidase Antibodies 77 IU/mL (<9)
== END 2024-03-21 09:46 | disposition home or self-care (01) ==
LOC: CHSLAB 09:49
PROVIDERS: PCP Internal Medicine
DX: C54.1 Malignant neoplasm of endometrium (principal); E11.65 Type 2 diabetes mellitus with hyperglycemia
CPT/HCPCS: 36415; 80053; 83735; 84439; 84443; 84481; 85025; 86304; 86376

== ENCOUNTER 2024-04-11 09:09 | Outpatient (CLI) | payer MEDICARE, SELFPAY ==
[2024-04-11 09:42] LABS: Basophils Absolute Auto 0.07 K/mm3 (0.00-0.10); Basophils Percent Auto 0.6 % (0.0-1.0); Eosinophils Percent Auto 3.5 % (1.0-6.0); Hematocrit 44.2 % (35.0-42.0); Hemoglobin 15.7 g/dL (11.7-13.8); Immature Granulocyte Absolute 0.07 K/mm3 (0.00-0.00); Immature Granulocyte Percent A 0.6 % (0.0-0.0); Lymphocytes Absolute Auto 3.18 K/mm3 (1.10-4.50); Lymphocytes Percent Auto 27.5 % (18.0-42.0); Mean Corpuscular HGB Conc 35.5 g/dL (32-36); Mean Corpuscular Hemoglobin 33.8 pg (27.0-31.0); Mean Corpuscular Volume 95.1 fL (78.0-102.0); Mean Platelet Volume 11.2 fl (9.2-11.8); Monocytes Absolute Auto 0.82 K/mm3 (0.10-0.90); Monocytes Percent Auto 7.1 % (2.0-11.0); Neutrophils Absolute Auto 7.04 K/mm3 (1.70-7.20); Neutrophils Percent Auto 60.7 % (50.0-70.0); Platelet Count Result 208 K/mm3 (150-420); Red Blood Count 4.65 M/mm3 (4.20-5.40); Red Cell Distribution Width 12.9 % (11.6-14.4); White Blood Count 11.6 K/mm3 (4.8-10.8)
[2024-04-11 10:17] LABS: Alanine Aminotransferase 26 U/L (14-59); Albumin Level 3.8 g/dL (3.4-5.0); Alkaline Phosphatase 74 U/L (46-116); Anion Gap 10 mmol/L (4-12); Aspartate Amino Transferase 21 U/L (15-37); Bilirubin,Total 0.4 mg/dL (0.00-1.00); Blood Urea Nitrogen 18 mg/dL (7-18); Calcium 9.3 mg/dL (8.5-10.1); Carbon Dioxide 27 mmol/L (21-32); Chloride 102 mmol/L (98-108); Estimated Glomerular Filt Rate > 60; Glucose 136 mg/dL (70-99); Magnesium 1.6 mg/dL (1.8-2.4); Osmolality Calculated 291 mOsm/kg (285-295); Potassium 3.7 mmol/L (3.5-5.1); Sodium 139 mmol/L (136-145); Total Protein 6.8 g/dL (6.4-8.2)
[2024-04-13 04:18] LABS: CA-125 210 U/mL (<35)
[2024-04-14 05:33] LABS: TSH QUEST 42.85 mIU/L (0.40-4.50)
[2024-04-14 16:34] LABS: Thyroid Peroxidase Antibodies 84 IU/mL (<9)
== END 2024-04-11 09:10 | disposition home or self-care (01) ==
LOC: CHSLAB 09:13
PROVIDERS: PCP Internal Medicine
DX: C54.1 Malignant neoplasm of endometrium (principal); R53.83 Other fatigue; E11.65 Type 2 diabetes mellitus with hyperglycemia
CPT/HCPCS: 36415; 80053; 83735; 84439; 84443; 84481; 85025; 86304; 86376

== ENCOUNTER 2024-05-02 11:42 | Outpatient (CLI) | payer MEDICARE, SELFPAY ==
[2024-05-02 12:03] LABS: Basophils Absolute Auto 0.08 K/mm3 (0.00-0.10); Basophils Percent Auto 0.6 % (0.0-1.0); Eosinophils Absolute Auto 0.34 K/mm3 (0.02-0.50); Eosinophils Percent Auto 2.7 % (1.0-6.0); Hematocrit 44.6 % (35.0-42.0); Hemoglobin 15.2 g/dL (11.7-13.8); Immature Granulocyte Absolute 0.12 K/mm3 (0.00-0.00); Lymphocytes Absolute Auto 2.64 K/mm3 (1.10-4.50); Lymphocytes Percent Auto 21.1 % (18.0-42.0); Mean Corpuscular HGB Conc 34.1 g/dL (32-36); Mean Corpuscular Hemoglobin 32.1 pg (27.0-31.0); Mean Corpuscular Volume 94.1 fL (78.0-102.0); Mean Platelet Volume 10.3 fl (9.2-11.8); Monocytes Absolute Auto 0.77 K/mm3 (0.10-0.90); Monocytes Percent Auto 6.1 % (2.0-11.0); Neutrophils Absolute Auto 8.59 K/mm3 (1.70-7.20); Neutrophils Percent Auto 68.5 % (50.0-70.0); Platelet Count Result 268 K/mm3 (150-420); Red Blood Count 4.74 M/mm3 (4.20-5.40); Red Cell Distribution Width 12.6 % (11.6-14.4); White Blood Count 12.5 K/mm3 (4.8-10.8)
[2024-05-02 12:57] LABS: Alanine Aminotransferase 22 U/L (14-59); Albumin Level 3.5 g/dL (3.4-5.0); Alkaline Phosphatase 83 U/L (46-116); Anion Gap 11 mmol/L (4-12); Aspartate Amino Transferase 16 U/L (15-37); Bilirubin,Total 0.5 mg/dL (0.00-1.00); Blood Urea Nitrogen 14 mg/dL (7-18); Calcium 9.5 mg/dL (8.5-10.1); Carbon Dioxide 29 mmol/L (21-32); Chloride 101 mmol/L (98-108); Estimated Glomerular Filt Rate > 60; Free T4 Free Thyroxine 0.92 ng/dL (0.76-1.46); Glucose 188 mg/dL (70-99); Magnesium 1.9 mg/dL (1.8-2.4); Osmolality Calculated 297 mOsm/kg (285-295); Potassium 4.3 mmol/L (3.5-5.1); Sodium 141 mmol/L (136-145); Thyroid Stimulating Hormone 41.12 uIU/mL (0.36-3.74); Total Protein 6.8 g/dL (6.4-8.2)
[2024-05-03 11:04] LABS: CA-125 203 U/mL (<35)
== END 2024-05-02 11:43 | disposition home or self-care (01) ==
LOC: CHSLAB 11:46
PROVIDERS: PCP Internal Medicine
DX: C54.1 Malignant neoplasm of endometrium (principal); E11.9 Type 2 diabetes mellitus without complications
CPT/HCPCS: 36415; 80053; 83735; 84439; 84443; 85025; 86304

== ENCOUNTER 2024-05-23 09:44 | Outpatient (CLI) | payer MEDICARE, SELFPAY ==
[2024-05-23 10:15] LABS: Basophils Absolute Auto 0.06 K/mm3 (0.00-0.10); Basophils Percent Auto 0.6 % (0.0-1.0); Eosinophils Absolute Auto 0.32 K/mm3 (0.02-0.50); Eosinophils Percent Auto 3.2 % (1.0-6.0); Hemoglobin 13.5 g/dL (11.7-13.8); Lymphocytes Absolute Auto 2.61 K/mm3 (1.10-4.50); Lymphocytes Percent Auto 25.8 % (18.0-42.0); Mean Corpuscular HGB Conc 32.9 g/dL (32-36); Mean Corpuscular Hemoglobin 30.5 pg (27.0-31.0); Mean Corpuscular Volume 92.6 fL (78.0-102.0); Mean Platelet Volume 10.6 fl (9.2-11.8); Monocytes Absolute Auto 0.71 K/mm3 (0.10-0.90); Neutrophils Percent Auto 62.4 % (50.0-70.0); Platelet Count Result 329 K/mm3 (150-420); Red Blood Count 4.43 M/mm3 (4.20-5.40); White Blood Count 10.1 K/mm3 (4.8-10.8)
[2024-05-23 11:00] LABS: Alanine Aminotransferase 19 U/L (14-59); Albumin Level 3.3 g/dL (3.4-5.0); Alkaline Phosphatase 82 U/L (46-116); Anion Gap 10 mmol/L (4-12); Aspartate Amino Transferase 16 U/L (15-37); Bilirubin,Total 0.4 mg/dL (0.00-1.00); Blood Urea Nitrogen 16 mg/dL (7-18); Calcium 8.7 mg/dL (8.5-10.1); Carbon Dioxide 27 mmol/L (21-32); Chloride 103 mmol/L (98-108); Estimated Glomerular Filt Rate > 60; Glucose 324 mg/dL (70-99); Magnesium 1.5 mg/dL (1.8-2.4); Osmolality Calculated 304 mOsm/kg (285-295); Potassium 4.2 mmol/L (3.5-5.1); Sodium 140 mmol/L (136-145); Thyroid Stimulating Hormone 28.98 uIU/mL (0.36-3.74); Total Protein 6.1 g/dL (6.4-8.2)
[2024-05-23 11:37] LABS: Free T4 Free Thyroxine 0.96 ng/dL (0.76-1.46)
== END 2024-05-23 09:45 | disposition home or self-care (01) ==
LOC: CHSLAB 09:47
PROVIDERS: PCP Internal Medicine
DX: C54.1 Malignant neoplasm of endometrium (principal); E11.65 Type 2 diabetes mellitus with hyperglycemia
CPT/HCPCS: 36415; 80053; 83735; 84439; 84443; 85025; 86304

== ENCOUNTER 2024-06-13 09:52 | Outpatient (CLI) | payer MEDICARE, MEDICAID, SELFPAY ==
[2024-06-13 10:07] LABS: Basophils Absolute Auto 0.08 K/mm3 (0.00-0.10); Basophils Percent Auto 0.8 % (0.0-1.0); Hematocrit 41.6 % (35.0-42.0); Hemoglobin 13.4 g/dL (11.7-13.8); Immature Granulocyte Absolute 0.07 K/mm3 (0.00-0.00); Immature Granulocyte Percent A 0.7 % (0.0-0.0); Lymphocytes Absolute Auto 2.95 K/mm3 (1.10-4.50); Lymphocytes Percent Auto 29.4 % (18.0-42.0); Mean Corpuscular HGB Conc 32.2 g/dL (32-36); Mean Corpuscular Hemoglobin 29.6 pg (27.0-31.0); Mean Platelet Volume 11.3 fl (9.2-11.8); Neutrophils Absolute Auto 5.63 K/mm3 (1.70-7.20); Neutrophils Percent Auto 56.1 % (50.0-70.0); Platelet Count Result 220 K/mm3 (150-420); Red Blood Count 4.52 M/mm3 (4.20-5.40); Red Cell Distribution Width 13.8 % (11.6-14.4)
--- OUTSIDE RECORDS SUMMARY | 2024-06-13 10:39 | XMS_ITS | Referral Summary ---
Author Organization [facility] [address] Address [address] [place] [address] Care Team Providers Care Account Development Associate Name Role Phone Andrea Chandler MD Primary Care Provider Encounters Date Type Department Care Team Description 05/25/2024 Orders Only [facility] Rachael Moncada RN Endometrial cancer (CMS/HCC) (HCC) (Primary Dx); Chemotherapy management, encounter for 05/25/2024 9:15 AM STAND GRINDER Office Visit [facility] Obstetrics and Gynecology [address] [place] [address] [facility] 13th [place] [address] [place] [address] Quynh Mims MD Endometrial cancer (CMS/HCC) (HCC) 05/25/2024 10:00 AM STAND GRINDER Infusion [facility] Gynecologic [facility] ([facility]) [address] [place] [id number] Endometrial cancer (CMS/HCC) (HCC) (Primary Dx) 05/23/2024 Orders Only [facility] Rachael Moncada RN Endometrial cancer (CMS/HCC) (HCC) (Primary Dx) 05/06/2024 3:00 PM STAND GRINDER [facility] Advanced Medicine Gynecologic On[facility] ([facility]) [address] [place] [id number] Endometrial cancer (CMS/HCC) (HCC) (Primary Dx) 05/05/2024 Orders Only Rachael Sena RN Endometrial cancer (CMS/HCC) (HCC) (Primary Dx) 05/03/2024 Orders Only Rachael Sena RN 04/14/2024 Orders Only [facility] Rachael Moncada RN 04/13/2024 Orders Only [facility] Rachael Moncada RN Endometrial cancer (CMS/HCC) (HCC) (Primary Dx) 04/13/2024 3:27 PM STAND GRINDER - 04/13/2024 11:59 PM STAND GRINDER Hospital Encounter [facility] Cancer [facility] ([facility]) [address] [place] [id number] Quynh Mims MD Endometrial cancer (CMS/HCC) (HCC) (Primary Dx) Discharge Disposition: Discharge to home or self care 04/13/2024 3:15 PM STAND GRINDER Office Visit [facility] Obstetrics and Gynecology [address] [place] [address] Advanced Medicine 13th [place] [address] Quynh Mims MD Endometrial cancer (CMS/HCC) (HCC) 04/11/2024 Orders Only [facility] Rachael Moncada RN 04/04/2024 Telephone [facility] Obstetrics and Gynecology [address] [place] [address] Advanced Medicine 13th [place] [address] Rachael Moncada RN 03/31/2024 2:00 PM STAND GRINDER Office Visit [facility] Dermatology [address] [facility] Floor [address] [place] [phone] Reagan Sandoval MD PhD Tinea corporis (Primary Dx); Encounter for medication management 03/24/2024 Orders Only [facility] Rachael Moncada, NADEGE 03/23/2024 Orders Only [facility] Rachael Moncada RN 03/23/2024 10:30 AM STAND GRINDER [facility] Gynecologic [facility] ([facility]) [address] [place] [id number] Endometrial cancer (CMS/HCC) (HCC) (Primary Dx) 03/23/2024 9:30 AM STAND GRINDER Office Visit [facility] Obstetrics and Gynecology [address] [place] [address] Advanced [facility] 13th [place] [address] Quynh Mims MD Endometrial cancer (CMS/HCC) (HCC) 03/23/2024 6:59 AM STAND GRINDER - 03/23/2024 11:59 PM STAND GRINDER Hospital Encounter [facility]) [address] [phone] Quynh Mims MD Endometrial cancer ([facility]) ([facility]); Chemotherapy management, encounter for; Elevated cancer antigen 125 (CA-125) Discharge Disposition: Discharge to home or self care 03/21/2024 Orders Only [facility] Rachael Moncada, NADEGE from Last 3 Months Allergies Active Allergy Reactions Criticality Noted Date Comments Paclitaxel Shortness of breath,Other (See comments),Flushing (skin) High 05/12/2023 Patient reports feeling hot and thought she was going to pass out, tightness in head Medications verapamil SR (CALAN SR) 240 mg CR tabletIndicati ons:hypertensi on Take 1 tablet (240 mg total) by mouth every morning 3 Active montelukast (SINGULAIR) 10 mg tabletIndicati ons:Seasonal Allergic Rhinitis Take 1 tablet (10 mg total) by mouth every evening [address] (CYMBALTA) 60 mg capsuleIndicat ions:pt unsure of indication Take 1 capsule (60 mg total) by mouth every morning 3 Active atorvastatin (LIPITOR) 10 mg tabletIndicati ons:hyperlipid emia Take 1 tablet (10 mg total) by mouth nightly Active fexofenadine (Cherelle Allergy) 60 mg tabletIndicati ons:Seasonal Allergic Rhinitis Take 1 tablet (60 mg total) by mouth every morning Active omeprazole 20 mg tablet,delayed release (DR/EC)Indicat ions:Treatment of Non-Bleeding Gastric Disorder Take 1 tablet (20 mg total) by mouth every morning Active multivitamin (MULTIPLE VITAMINS ORAL)Indicatio ns:supplement Take 1 tablet by mouth every morning Active ferrous sulfate 325 mg (65 mg of elemental iron) tabletIndicati ons:Iron Deficiency Anemia Take 1 tablet (325 mg total) by mouth 2 (two) times a day 9 Active OLANZapine (ZyPREXA) 5 mg tabletIndicati ons:Endometria l cancer (CMS/HCC) (HCC) Take 1 tablet (5 mg total) by mouth daily Take on Days 2, 3, and 4 of each cycle. 9 tablet 1 3 Active LORazepam (ATIVAN) 0.5 mg tabletIndicati ons:Endometria l cancer (CMS/HCC) (HCC) Take 1 tablet (0.5 mg total) by mouth every 6 (six) hours as needed (nausea, vomiting) May begin on day 5 if needed. 30 tablet 3 3 Active Additional Information Patient not taking.Informant: Self, Reported on 04/13/2024 ondansetron (ZOFRAN) 8 mg tabletIndicati ons:Endometria l cancer (CMS/HCC) (HCC) Take 1 tablet (8 mg total) by mouth every 8 (eight) hours as needed for nausea or vomiting May begin day 5 if needed. 30 tablet 3 3 Active neomycin (MYCIFRADIN) 500 mg tablet Take 2 tablets at 1 PM, 2 PM, and 10 PM the day before surgery. 6 tablet 4 Active pregabalin (LYRICA) 75 mg capsuleIndicat ions:pt unsure of indication Take 1 capsule (75 mg total) by mouth pulverizer feeder before breakfast Active loratadine 10 mg capsuleIndicat ions:Allergic Rhinitis Take 1 capsule by mouth every morning Active acetaminophen (TYLENOL) 500 mg tabletIndicati ons:Pain Take 2 tablets (1,000 mg total) by mouth every 6 (six) hours as needed for pain 60 tablet 4 Active ibuprofen (ADVIL,MOTRIN) 600 mg tabletIndicati ons:Pain Take 1 tablet (600 mg total) by mouth every 6 (six) hours as needed for pain 30 tablet 4 Active oxyCODONE (ROXICODONE) 5 mg immediate release tabletIndicati ons:Pain Take 1 tablet (5 mg total) by mouth every 4 (four) hours as needed for pain 10 tablet 4 Active Additional Information Patient not taking.Reported on 04/13/2024 polyethylene glycol (GoLYTELY) 236-22.74-6.74 -5.86 gram solution At 4:00 pm day prior to procedure: start the prep solution-drink one 8 ounce glass every 15 minutes until half of the gallon/64 ounces is gone. 6-8 hours prior to leaving home for the procedure-drink the remaining half gallon or 64 ounces of prep solution DO NOT DRINK ANYTHING ELSE UNTIL AFTER YOUR TEST 4000 mL 4 Active ketoconazole (NIZORAL) 2 % shampoo Apply topically 2 (two) times a week Use 3 days in a row and then go to 1-2x weekly. Apply to damp skin, lather, leave on 5 minutes, and rinse 120 mL 1 4 Active Additional Information Patient not taking.Reported on 04/13/2024 insulin glargine 100 unit/mL (3 mL) pen for injection Inject 40 Units under the skin daily Active megestroL (MEGACE) 40 mg tablet Take 1 tablet (40 mg total) by mouth 2 (two) times a day 60 tablet 5 4 Active triamcinolone (KENALOG) 0.1 % ointmentIndica tions:Tinea corporis Apply to area of rash/itching on the thigh twice daily. Avoid applying to face/armpits/reynaldo in. 454 g 1 4 Active TRESIBA 100 unit/mL (3 mL) pen for injection INJECT BY 30 UNITS SUBCUTANEOUS ROUTE AT BEDTIME 4 Active letrozole (FEMARA) 2.5 mg tablet Take 1 tablet (2.5 mg total) by mouth daily 30 tablet 5 5 025 Active levothyroxine (SYNTHROID) 125 mcg tablet TAKE 2 TABS (250 MCG DOSE) BY ORAL ROUTE ONCE DAILY 4 Active letrozole (FEMARA) 2.5 mg tablet Take 1 tablet (2.5 mg total) by mouth daily 30 tablet 5 4 025 Discontin ued(Reord er) levothyroxine (SYNTHROID) 200 mcg tablet Take 1 tablet (200 mcg total) by mouth daily 4 025 Discontin ued(Alter mars therapy) lisinopriL (PRINIVIL,ZEST RIL) 10 mg tablet 4 025 Discontin ued(Alter mars therapy) Active Problems Problem Noted Date Diagnosed Date Peritoneal carcinomatosis 11/06/2023 Type 2 diabetes mellitus wit hout complication, with long-term current use of insulin (CMS/HCC) 11/06/2023 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 08/25/2023 Renal cyst, left 05/11/2023 Overview (05/11/2023): Complex on CT and sono [ ] Follow on repeat CT scan and if unchanged after NACT, loop in Uro if needs nephrectomy Endometrial cancer (CMS/HCC) 04/29/2023 Fatigue 01/26/2019 Iron deficiency anemia due to chronic blood loss 10/26/2018 Essential hypertension 04/10/2011 Immunizations Name Administration Dates Next Due Influenza, Quad, Adjuvantate d, Intramuscular 03/06/2023 Influenza, Quadrivalent, Spl it, Intramuscular 01/31/2019 Influenza, Quadrivalent, Spl it, Preservative Free, Intramuscular 02/11/2022,03/09/2018,03/08/2018 Social History Tobacco Use Types Packs/Day Years Used Date Smoking Tobacco: Every Day Cigarettes Smokeless Tobacco: Never Tobacco Cessation:Ready to Q uit: No; Counseling Given: Yes AUDIT-C Answer Date Recorded Q1: How often do you have a drink containing alc ohol? Monthly or less 09/21/2023 Q2: How many drinks containi ng alcohol do you have on a typical day when you are drinking? 1 or 2 09/21/2023 Q3: How often do you have si x or more drinks on one occasion? Never 09/21/2023 Personal Safety Answer Date Recorded Have you ever been in or are you currently in a harmful physical or emotional relationship or is someone making you feel afraid or unsafe? Denies 10/23/2023 Comments No Sex and Gender Information Value Date Recorded Sex Assigned at Not on file Legal Sex Female 3:27 AM STAND GRINDER Gender Identity Not on file Sexual Orientation Not on file Last Filed Vital Signs Vital Sign Reading Time Taken Comments Blood Pressure 124/62 05/25/2024 9:01 AM STAND GRINDER Pulse 86 05/25/2024 9:01 AM STAND GRINDER Temperature 36.6 ??C (97.9 ??F) 05/25/2024 9:01 AM CS T Respiratory Rate 16 05/25/2024 9:01 AM STAND GRINDER Oxygen Saturation 96% 05/25/2024 9:01 AM STAND GRINDER Inhaled Oxygen Concentration - - Weight 81.4 kg (179 lb 6.4 oz) 05/25/2024 9:01 A M STAND GRINDER Height 160 cm (5' 2.99 ) 05/25/2024 9:01 AM STAND GRINDER Body Mass Index 31.79 05/25/2024 9:01 AM STAND GRINDER Plan of Treatment Not on file Medical Devices Implanted Type Area Taker Down Device Identifier Shelf Expiration Date Model / Serial / Lot [employer] Excela Low Porfile Power Port 8fr 1.6mm 1 Lumen [id number] - [id number] Implanted:Qty: 1 on 05/06/2023 at [facility] [employer] 01/04/2028 [id number] / / [id number] Procedures Procedure Name Priority Date/Time Associated Diagnosis Comments SCAN - LABS 05/25/2024 11:12 AM STAND GRINDER SCAN - LABS 05/23/2024 6:14 PM STAND GRINDER SCAN - LABS 05/05/2024 8:03 AM STAND GRINDER SCAN - LABS 05/03/2024 2:43 PM STAND GRINDER SCAN - LABS 04/14/2024 4:53 PM STAND GRINDER POCT GLUCOSE DEVICE Routine 04/13/2024 4 :15 PM STAND GRINDER SCAN - LABS 04/13/2024 6:57 AM STAND GRINDER SCAN - LABS 04/11/2024 11:45 AM STAND GRINDER SCAN - LABS 03/24/2024 2:[address] CHEST ABDOMEN PELVIS W CONTRAST Routine 03/23/2024 8:24 AM STAND GRINDER Endometrial cancer (CMS/HCC) (HCC) Chemotherapy management, encounter for Elevated cancer antigen 125 (CA-125) POCT CREATININE - DEVICE Routine 03/23/2024 7:59 AM STAND GRINDER SCAN - LABS 03/23/2024 6:52 AM STAND GRINDER SCAN - LABS 03/21/2024 3:26 PM STAND GRINDER EGFR Routine 01/12/2024 8:02 AM CDT Endometrial cancer (CMS/HCC) (HCC) COLONOSCOPY 10/23/2023 8:19 AM CDT HEMOGLOBIN A1C Routine 09/17/2023 10:35 AM CDT Preoperative testing Diabetes mellitus without complication (CMS/HCC) (HCC) from Last 3 Months or Most Recently Relevant to Health Maintenance Results * SCAN - LABS (05/25/2024 11:12 AM STAND GRINDER) Result Rene Moncada RN Edited Resul t - Final * SCAN - LABS (05/23/2024 6:14 PM STAND GRINDER) us Rachael Moncada RN Final Result * SCAN - LABS (05/05/2024 8:03 AM STAND GRINDER) Result Rene Moncada RN Final Result * SCAN - LABS (05/03/2024 2:43 PM STAND GRINDER) Result Rene Moncada RN Final Result * SCAN - LABS (04/14/2024 4:53 PM STAND GRINDER) Result Rene Moncada RN Edited Resul t - Final * POCT glucose (04/13/2024 4:15 PM STAND GRINDER) [facility] Signature Glucose, POC 182 70 - 199 mg/dL Blood 04/13/2024 4:15 PM STAND GRINDER 04/13/2024 4:15 PM STAND GRINDER us Quynh Mims MD LAB POCT ORDERABLES - DEVICE Final Result [facility] Department [place] [address] * SCAN - LABS (04/13/2024 6:57 AM STAND GRINDER) Result Rene Moncada RN Final Result * SCAN - LABS (04/11/2024 11:45 AM STAND GRINDER) us Rachael Moncada RN Final Result * SCAN - LABS (03/24/2024 2:46 PM STAND GRINDER) Rachael Moncada RN Edited Resul t - Final * CT Chest Abdomen Pelvis W Contrast (03/23/2024 8:24 AM STAND GRINDER) Anatomical Region Laterality Modality Body N/A Computed Tomogra phy 03/23/2024 9:1 4 AM STAND GRINDER Impressions 03/23/2024 9:27 AM STAND GRINDER 1. ??New pulmonary nodules measuring 5 mm and smaller which are indeterminate, possibly inflammatory or infectious in nature. Recommend attention on follow-up exam. 2. ??Overall burden of disease in the abdomen and pelvis has decreased over prior studies. ??Specifically, the omental and peritoneal deposits have decreased, along with the now minimal amount of ascites. ??The primary mass in the endometrium is not well evaluated on this CT exam, with persistent tethering of the uterus to the rectum without definite fistula. Dictated by: Vernon Ferrari M.D. The radiology attending physician has personally reviewed this study, and had reviewed and/or edited this written report and agrees with it. Electronically signed by: Venkat Kaur MD, PHD Narrative 03/23/2024 9:27 AM STAND GRINDER EXAMINATION: ??Computed tomography of the chest, abdomen and pelvis with intravenous contrast HISTORY: 69-year-old woman with uterine cancer, follow-up TECHNIQUE: ??Transaxial computed tomographic images of the chest, abdomen and pelvis were obtained with intravenous contrast according to the standard protocol after the uneventful administration of 75 mL Opti-Ray 350 intravenous contrast. COMPARISON: CT dated 11/27/2023 FINDINGS: ?? Chest: Central airways are clear. ??No pneumothorax or pleural effusion. ??No pulmonary edema or consolidation. ??Multiple sub-5 mm pulmonary nodules in both lungs appear new since the prior exam. ??For example, there is a 4 mm pulmonary nodule in the left upper lobe (series 3, image 45). ??Additional scattered peripheral groundglass opacities have been present on multiple prior studies and are unchanged. ??Mild centrilobular emphysema. ??Heart is normal in size with no pericardial effusion. ??The aorta and main pulmonary artery are normal in course and caliber. ??Moderate atherosclerotic calcifications of the aortic arch. ??Mild atherosclerotic calcifications of the coronary arteries. No supraclavicular, axillary, mediastinal, or hilar lymphadenopathy. The imaged thyroid is normal. ??Right chest port with its catheter terminating in the superior vena cava. Abdomen/Pelvis: No suspicious hepatic lesion. ??The gallbladder is surgically absent. Mildly prominent intrahepatic and extrahepatic biliary ducts likely due to the reservoir effect. ??Seen again is an unchanged left adrenal mass measuring 2.1 x 2.5 cm, which, when correlated with the noncontrast CT exam from 09/16/2023, corresponds to an adrenal adenoma. ??The spleen and pancreas are normal. Unchanged left lower pole renal cyst. ??Seen again is a cystic lesion in the upper pole of the left kidney measuring 2.0 x 2.4 cm with possible internal septation. ??The right kidney is normal. ??No hydronephrosis or nephrolithiasis. ??The urinary bladder is decompressed. ??The known endometrial mass is not well assessed on this CT exam. ??The ovaries are enlarged, unchanged from the prior exam. ??There is persistent soft tissue tethering between the uterus and rectosigmoid junction (series 2, image 250). The sigmoid colon is adherent to the left aspect of the uterus. Diffuse diverticulosis without evidence of diverticulitis. ??The small and large bowels are normal in caliber without evidence of obstruction. There is persistent, but slight decrease in nodularity in the left upper quadrant of the abdomen, which contains the bulk of the residual disease. ??(Series 2, image 111). ??The dominant omental deposit measures 3.8 cm, slightly decreased in size since the prior exam in November 2023, where it measured 4.7 cm (series 2, image 133). Minimal trace perihepatic ascites. ??No abdominal or pelvic lymphadenopathy. ??The abdominal aorta is normal in caliber with diffuse calcified and noncalcified atherosclerosis. No suspicious osseous lesion. Procedure Note Venkat Kaur MD PhD - 03/23/2024 EXAMINATION: Computed tomography of the chest, abdomen and pelvis with intravenous contrast HISTORY: 69-year-old woman with uterine cancer, follow-up TECHNIQUE: Transaxial computed tomographic images of the chest, abdomen and pelvis were obtained with intravenous contrast according to the standard protocol after the uneventful administration of 75 mL Opti-Ray 350 intravenous contrast. COMPARISON: CT dated 11/27/2023 FINDINGS: Chest: Central airways are clear. No pneumothorax or pleural effusion. No pulmonary edema or consolidation. Multiple sub-5 mm pulmonary nodules in both lungs appear new since the prior exam. For example, there is a 4 mm pulmonary nodule in the left upper lobe (series 3, image 45). Additional scattered peripheral groundglass opacities have been present on multiple prior studies and are unchanged. Mild centrilobular emphysema. Heart is normal in size with no pericardial effusion. The aorta and main pulmonary artery are normal in course and caliber. Moderate atherosclerotic calcifications of the aortic arch. Mild atherosclerotic calcifications of the coronary arteries. No supraclavicular, axillary, mediastinal, or hilar lymphadenopathy. The imaged thyroid is normal. Right chest port with its catheter terminating in the superior vena cava. Abdomen/Pelvis: No suspicious hepatic lesion. The gallbladder is surgically absent. Mildly prominent intrahepatic and extrahepatic biliary ducts likely due to the reservoir effect. Seen again is an unchanged left adrenal mass measuring 2.1 x 2.5 cm, which, when correlated with the noncontrast CT exam from 09/16/2023, corresponds to an adrenal adenoma. The spleen and pancreas are normal. Unchanged left lower pole renal cyst. Seen again is a cystic lesion in the upper pole of the left kidney measuring 2.0 x 2.4 cm with possible internal septation. The right kidney is normal. No hydronephrosis or nephrolithiasis. The urinary bladder is decompressed. The known endometrial mass is not well assessed on this CT exam. The ovaries are enlarged, unchanged from the prior exam. There is persistent soft tissue tethering between the uterus and rectosigmoid junction (series 2, image 250). The sigmoid colon is adherent to the left aspect of the uterus. Diffuse diverticulosis without evidence of diverticulitis. The small and large bowels are normal in caliber without evidence of obstruction. There is persistent, but slight decrease in nodularity in the left upper quadrant of the abdomen, which contains the bulk of the residual disease. (Series 2, image 111). The dominant omental deposit measures 3.8 cm, slightly decreased in size since the prior exam in November 2023, where it measured 4.7 cm (series 2, image 133). Minimal trace perihepatic ascites. No abdominal or pelvic lymphadenopathy. The abdominal aorta is normal in caliber with diffuse calcified and noncalcified atherosclerosis. No suspicious osseous lesion. IMPRESSION: 1. New pulmonary nodules measuring 5 mm and smaller which are indeterminate, possibly inflammatory or infectious in nature. Recommend attention on follow-up exam. 2. Overall burden of disease in the abdomen and pelvis has decreased over prior studies. Specifically, the omental and peritoneal deposits have decreased, along with the now minimal amount of ascites. The primary mass in the endometrium is not well evaluated on this CT exam, with persistent tethering of the uterus to the rectum without definite fistula. Dictated by: Vernon Ferrari M.D. The radiology attending physician has personally reviewed this study, and had reviewed and/or edited this written report and agrees with it. Electronically signed by: Venkat Kaur MD, PHD us Quynh Mims MD IMG CT PROCEDURES Fi nal Result * POCT creatinine (03/23/2024 7:59 AM STAND GRINDER) [facility] Creatinine POC 0.7 0.6 - 1.1 mg/dL Blood 03/23/2024 7:59 AM STAND GRINDER 03/23/2024 7:59 AM STAND GRINDER Result Rene Mims MD LAB POCT ORDERABLES - DEVICE Final Result Performing Organization Address City/State/[facility] Co de Phone Number [facility] Department [place] [address] * SCAN - LABS (03/23/2024 6:52 AM STAND GRINDER) us Rachael Moncada RN Final Result * SCAN - LABS (03/21/2024 3:26 PM STAND GRINDER) us Rachael Moncada RN Edited Resul t - Final * eGFR (01/12/2024 8:02 AM CDT) eGFR >90 >=60 mL/min/1. 73 m2 Comment: Interpretive Data Reference Interval Normal ?>/= 90 mL/min/1.73m2 Mildly decreased* ? 60 - 89 mL/min/1.73m2 Mildly to moderately decreased ?45 - 59 mL/min/1.73m2 Moderately to severely decreased ??30 - 44 mL/min/1.73m2 Severely decreased ?15 - 29 mL/min/1.73m2 Kidney Failure ?< 15 ??mL/min/1.73m2 *Relative to young adult level Estimated glomerular filtration rate is determined by the 2020 CKD-EPI equation recommended by the National Kid[employer] Foundation (A Unifying Approach to GFR Estimation: Recommendations of the NKF-ASK Task Force on Reassessing the Inclusion of Race in Diagnosing Kidney Disease, JASN 2020). The CKD-EPI equation should not be used for patients with unstable renal function and has not been validated in children and those over 70. Current interpretive data was last reviewed 2021. Blood 01/12/2024 8:02 AM CDT 01/12/2024 8:11 AM CDT Quynh Mims MD LAB BLOOD ORDERABLES Final Result [facility] [address] [place] [address] * Colonoscopy (10/23/2023 8:19 AM CDT) Anatomical Region Laterality Modality Other Narrative Procedure Note Winston Aaron MD - 10/23/2023 8:19 AM CDT ENDOSCOPY LAB Patient Name: Arti Corrigan Procedure Date: 10/23/2023 8:19 AM Admit Type: Outpatient Room: [facility] Date of : 1955 Instrument Name: [id number] Gender: Female Note Status: Finalized Procedure: Colonoscopy Indications: Evaluate for primary site of malignancy Providers: Winston Aaron M.D. Referring MD: Quynh Mims M.D. Medicines: Monitored Anesthesia Care Complications: No immediate complications. Estimated Blood Loss: Estimated blood loss: none. Procedure: Pre-Anesthesia Assessment: - The risks and benefits of the procedure and the sedation options and risks were discussed with the patient. All questions were answered and informed consent was obtained. - Immediately prior to administration ofmedications, the patient was re-assessed for adequacy to receive sedatives. The benefits, risks and alternatives of theprocedure and sedation were discussed and informed consentwas obtained. All questions were answered. Please referto the signed informed consent document in the medical record. The scope was passed under direct vision.The Colonoscope was introduced through the anus and advanced to the cecum, identified by appendiceal orifice and ileocecal valve. The colonoscopy was performed without difficulty. The patient tolerated the procedure well. The quality of the bowel preparation was good. The bowel preparation usedwas GoLYTELY via split dose instruction. Findings: The perianal and digital rectal examinations were normal. A 7 mm polyp was found in the cecum. The polyp was sessile. The polyp was removed with a cold snare. Resection and retrieval werecomplete. Multiple small-mouthed diverticula were found in the entire colon. The exam was otherwise without abnormality on direct and retroflexion views. Impression: - One 7 mm polyp in the cecum, removed with a cold snare. Resected and retrieved. - Diverticulosis in the entire examined colon. - The examination was otherwise normal on directand retroflexion views. Recommendation: - Repeat colonoscopy in 5 years for surveillance. - Await pathology results. - Return to referring physician as previously scheduled. Attending Participation: I personally performed the entire procedure. Electronically signed by Winston Aaron M.D. Winston Aaron M.D. 10/23/2023 9:16:08 AM This document was signed electronically. Number of Addenda: 0 Note Initiated On: 10/23/2023 8:19 AM Scope Withdrawal Time: 0 hours 7 minutes 43 seconds Scope In: 8:30:18 AM Scope Out: 8:43:05 AM Winston Aaron MD ENDOSCOPY PROCEDURES Final Result * (ABNORMAL) Hemoglobin A1c (09/17/2023 10:35 AM CDT) Hgb A1C 7.1(H) 4.0 - 5.6 % Estimated Average Glucose 157 mg/dL [facility] Comment: The ADA recommends reporting an estimated Average Glucose (eAG) with all Hemoglobin A1c results using the equation derived from a study of 507 normal and diabetic adults. ??Minority populations were underrepresented and children were not included. ?? (Diabetes Care 2020; 43(S1): S66-S76). ??The eAG is not equivalent to a fasting glucose. Blood 09/17/2023 10:3 5 AM CDT 09/17/2023 1:57 PM CDT Maranda Winslow NP LAB BLOOD ORDERABLES Final Re sult [facility] [place] [address] from Last 3 Months or Most Recently Relevant to Health Maintenance Insurance [facility] MEDICARE [facility] MEDICARE IDPA Advance Directives For more information, please contact: [phone] * Full Code (Latest Code Status on File) Date Activated Date Inactivated Comments 10/23/2023 7:57 AM 10/23/2023 1:38 PM Care Teams Account Development Associate Relationship Specialty Start Date End Date Andrea Chandler MD PCP - General Internal Medicine 03/31/23
--- OUTSIDE RECORDS SUMMARY | 2024-06-13 10:39 | XMS_ITS | Encounter Summary ---
Author Organization [facility] Address [address] [place] [address]. 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
--- OUTSIDE RECORDS SUMMARY | 2024-06-13 10:39 | XMS_ITS ---
Author Organization [facility] [place] [address] Address [address] [place] [address] Care Team Providers Care House Player Name Role Phone Andrea Chandler MD Primary Care Provider [phone] Active Problems Problem Noted Date Diagnosed Date [...] chronic blood loss 10/26/2018 Essential hypertension 04/10/2011 Current Oncology Plans IV Maintenance Therapy Plan* Plan Start Date:05/12/2023 Plan Provider:Quynh Mims MD Linked Problems Endometrial cancer (CMS/HCC) (HCC) Treatment Medications No medications scheduled. Pembrolizumab 21 Day Cycles - YARDER OPERATOR (Carbo Completed)* Plan Start Date:04/30/2023 Plan Provider:Quynh Mims MD Linked Problems Endometrial cancer (CMS/HCC) (HCC) Treatment Medications Current Day (Day 1 , Cycle 19 - Planned for 06/15/2024) Next Day (Day 1, Cycle 20 - Planned for 07/06/2024) CARBOplatin (PARAPLATIN) IVP B in 250 mL (by AUC: GOG)PACLItaxel (TAXOL) IVPB in 500 mLpembrolizumab (KEYTRUDA)pembrolizumab (KEYTRUDA) IVPB in 100 mL pembrolizumab (KEYTRUDA) 200 mg in sodium chloride 0.9% 100 mL pembrolizumab (KEYTRUDA) 200 mg in sodium chloride 0.9% 100 mL Past Plans No past plan information found. Radiation Treatments * No radiation treatments are documented for this patient in [facility]. Treatments may have been administered in another system. Lifetime Dose Tracking * Chemical Lifetime Dose Automatic Entry Manual Entr y Fluoro Time 0.4 minutes 0.4 minutes 0 minutes Air kerma at the reference point (Ka,r) 1 mGy 1 mGy 0 mGy DLP 721 mGycm 721 mGycm 0 mGycm
--- OUTSIDE RECORDS SUMMARY | 2024-06-13 10:39 | XMS_ITS | Clinical Summary ---
Author Organization [facility] [place] [address] Address [address] [place] [address] Care Team Providers Care Certified Bench Jeweler Technician Name Role Phone Andrea Chandler MD Primary Care Provider [phone] Allergies Active Allergy Reactions Criticality Noted Date [...] 1 capsule (75 mg total) by mouth bagel maker before breakfast Active loratadine 10 mg capsuleIndicat [...] chronic blood loss 10/26/2018 Essential hypertension 04/10/2011 Encounters Date Type Department Care Team Description 05/25/2024 10:00 AM CYBER SYSTEMS ENGINEER Infusion [facility] Advanced [facility] Gynecologic Oncology [facility] ([facility]) [address] [place] [address] Endometrial cancer (CMS/HCC) (HCC) (Primary Dx) 05/25/2024 9:15 AM CYBER SYSTEMS ENGINEER Office Visit [facility] Obstetrics and Gynecology [address] [place] [address] [facility] 13th [place] [address] [place] [address] Quynh Mims MD Endometrial cancer (CMS/HCC) (HCC) 05/25/2024 Orders Only [facility] OB ONCOLOGY Rachael Moncada RN Endometrial cancer (CMS/HCC) (HCC) (Primary Dx); Chemotherapy management, encounter for 05/23/2024 Orders Only [facility] OB Rachael Rm RN Endometrial cancer (CMS/HCC) (HCC) (Primary Dx) 05/06/2024 3:00 PM CYBER SYSTEMS ENGINEER Infusion [facility] Advanced Medicine Gynecologic Oncology [place] [facility] ([facility]) [address] [place] [address] Endometrial cancer (CMS/HCC) (HCC) (Primary Dx) 05/05/2024 Orders Only [facility] OB Rachael Rm RN Endometrial cancer (CMS/HCC) (HCC) (Primary Dx) 05/03/2024 Orders Only [facility] OB ONCOLOGY Rachael Moncada RN 04/14/2024 Orders Only [facility] OB ONCOLOGY Rachael Moncada RN 04/13/2024 3:27 PM CYBER SYSTEMS ENGINEER - 04/13/2024 11:59 PM CYBER SYSTEMS ENGINEER Hospital Encounter [facility] [address] [place] [address] Quynh Mims MD Endometrial cancer (CMS/HCC) (HCC) (Primary Dx) Discharge Disposition: Discharge to home or self care 04/13/2024 3:15 PM CYBER SYSTEMS ENGINEER Office Visit [facility] Obstetrics and Gynecology [address] [place] [address] [facility] 13th [place] [address] Quynh Mims MD Endometrial cancer (CMS/HCC) (HCC) 04/13/2024 Orders Only [facility] ONCOLOGY Rachael Moncada RN Endometrial cancer (CMS/HCC) (HCC) (Primary Dx) 04/11/2024 Orders Only [facility] ONCOLOGY Rachael Moncada RN 04/04/2024 Telephone [facility] Obstetrics and Gynecology [address] [place] [address] [facility] 13th [place] [address] Rachael Moncada RN 03/31/2024 2:00 PM CYBER SYSTEMS ENGINEER Office Visit [facility] Dermatology [facility] Floor [address] [place] [address] Reagan Sandoval MD PhD Tinea corporis (Primary Dx); Encounter for medication management 03/24/2024 Orders Only [facility] OB ONCOLOGY Rachael Moncada RN 03/23/2024 10:30 AM CYBER SYSTEMS ENGINEER [facility]) [address] [place] [address] Endometrial cancer (CMS/HCC) (HCC) (Primary Dx) 03/23/2024 9:30 AM CYBER SYSTEMS ENGINEER Office Visit [facility] Obstetrics and Gynecology [address] [place] [address] [facility] 13th [place] [address] Quyhn Mims MD Endometrial cancer (CMS/HCC) (HCC) 03/23/2024 6:59 AM CYBER SYSTEMS ENGINEER - 03/23/2024 11:59 PM CYBER SYSTEMS ENGINEER Hospital Encounter [facility] ([facility]) [address] [place], [place] [id number] Quynh Mims MD Endometrial cancer (CMS/HCC) (HCC); Chemotherapy management, encounter for; Elevated cancer antigen 125 (CA-125) Discharge Disposition: Discharge to home or self care 03/23/2024 Orders Only [facility] Rachael Moncada RN 03/21/2024 Orders Only [facility] ONCOL[facility] Rachael Moncada, RN from Last 3 Months Immunizations Name Administration Dates Next Due Influenza, Quad, Adjuvantate d, Intramuscular 03/06/2023 Influenza, Quadrivalent, Spl it, Intramuscular 01/31/2019 Influenza, Quadrivalent, Spl it, Preservative Free, Intramuscular 02/11/2022,03/09/2018,03/08/2018 Surgical History Surgery Date Site/Laterality Comments GALLBLADDER SURGERY 05/11/1994 - 05/10/1995 TONSILLECTOMY PORT PLACEMENT CHEST >5 YEARS 05/06/2023 N/A UPPER GASTROINTESTINAL ENDOSCOPY COLONOSCOPY THUMB SURGERY Medical History Medical History Date Comments High blood pressure Diabetes mellitus (HCC) COPD (chronic obstructive pulmonary disease) (HC C) HLD (hyperlipidemia) Endometrial cancer (CMS/HCC) (HCC) Renal cyst Tobacco use GERD (gastroesophageal reflux disease) Type 2 diabetes mellitus (HCC) Hypothyroidism Family History Medical History Relation Name Comments Colon cancer Brother Lung cancer Father Kidney cancer Neg Hx Ovarian cancer Neg Hx Uterine cancer Neg Hx Relation Name Status Comments Brother Father Social History Tobacco Use Types Packs/Day Years [...] on file Legal Sex Female 3:27 AM CYBER SYSTEMS ENGINEER Gender Identity Not on file Sexual Orientation Not on file Obstetrics History Para Term AB IAB SAB Ectopic Multiple Livin g Live Births 1 1 1 Date Outcome GA Total Labor Labor/2nd/3rd Weight Sex Type Anes PTL Perla A1 A5 Name Clin Para Comments x1 Last Filed Vital Signs Vital Sign Reading Time Taken Comments Blood Pressure 124/62 05/25/2024 9:01 AM CYBER SYSTEMS ENGINEER Pulse 86 05/25/2024 9:01 AM CYBER SYSTEMS ENGINEER Temperature 36.6 ??C (97.9 ??F) 05/25/2024 9:01 AM CS T Respiratory Rate 16 05/25/2024 9:01 AM CYBER SYSTEMS ENGINEER Oxygen Saturation 96% 05/25/2024 9:01 AM CYBER SYSTEMS ENGINEER Inhaled Oxygen Concentration - - Weight 81.4 kg (179 lb 6.4 oz) 05/25/2024 9:01 A M CYBER SYSTEMS ENGINEER Height 160 cm (5' 2.99 ) 05/25/2024 9:01 AM CYBER SYSTEMS ENGINEER Body Mass Index 31.79 05/25/2024 9:01 AM CYBER SYSTEMS ENGINEER Plan of Treatment Health Maintenance Due Date Last Done Comments Albumin Creatinine Ratio, Urine 1955 Breast Cancer Screening-Mammogram 1955 Depression Screening 1955 Hepatitis C Screening 1955 Osteoporosis Screening-Bone Density Scan 1955 Dilated Eye Exam 1955 Foot Exam 1955 Lipid Panel 1955 Pneumococcal vaccine 65+ (1 of 2 - PCV) 1963 DTaP/Tdap/Td Vaccine (1 - Tdap) 02/13/1968 Hepatitis B Screening 1975 Zoster Vaccine (1 of 2) 02/13/1976 Well Visit 65+ 2022 Covid-19 Vaccine (4 - 2023-2 5 season) 2024 04/26/2021, 08/14/2020, 07/17/2020 Influenza Vaccine (#1) 2024 3, 02/11/2022, 01/31/2019, Additional history exists Hemoglobin A1C 03/19/2024 09/17/2023, 04/17/2023 Fall Risk Assessment 10/22/2024 10/23/2023 eGFR 01/11/2025 01/12/2024, 05/0 01/2024, 05/06/2023, Additional history exists Colon Cancer Screening-Colonoscopy 10/22/20332023 Medical Devices Implanted Type Area Nurse Auditor Device Identifier Shelf Expiration Date Model / Serial / Lot [employer] Excela Low Porfile Power Port 8fr 1.6mm 1 Lumen [id number] - [id number] Implanted:Qty: 1 on 05/06/2023 at [facility] [employer] 01/04/2028 [id number] / / [id number] Procedures Procedure Name Priority Date/Time Associated Diagnosis Comments SCAN - LABS 05/25/2024 11:12 AM CYBER SYSTEMS ENGINEER SCAN - LABS 05/23/2024 6:14 PM CYBER SYSTEMS ENGINEER SCAN - LABS 05/05/2024 8:03 AM CYBER SYSTEMS ENGINEER SCAN - LABS 05/03/2024 2:43 PM CYBER SYSTEMS ENGINEER SCAN - LABS 04/14/2024 4:53 PM CYBER SYSTEMS ENGINEER POCT GLUCOSE DEVICE Routine 04/13/2024 4 :15 PM CYBER SYSTEMS ENGINEER SCAN - LABS 04/13/2024 6:57 AM CYBER SYSTEMS ENGINEER SCAN - LABS 04/11/2024 11:45 AM CYBER SYSTEMS ENGINEER SCAN - LABS 03/24/2024 2:46 PM [address]S [address] CHEST ABDOMEN PELVIS W CONTRAST Routine 03/23/2024 8:24 AM CYBER SYSTEMS ENGINEER Endometrial cancer (CMS/HCC) (HCC) Chemotherapy management, encounter for Elevated cancer antigen 125 (CA-125) POCT CREATININE - DEVICE Routine 03/23/2024 7:59 AM CYBER SYSTEMS ENGINEER SCAN - LABS 03/23/2024 6:52 AM CYBER SYSTEMS ENGINEER SCAN - LABS 03/21/2024 3:26 PM CYBER SYSTEMS ENGINEER EGFR Routine 01/12/2024 8:02 AM CDT Endometrial cancer (CMS/HCC) (HCC) COLONOSCOPY 10/23/2023 8:19 AM CDT HEMOGLOBIN A1C Routine 09/17/2023 10:35 AM CDT Preoperative testing Diabetes mellitus without complication (CMS/HCC) (HCC) from Last 3 Months or Most Recently Relevant to Health Maintenance Results * SCAN - LABS (05/25/2024 11:12 AM CYBER SYSTEMS ENGINEER) us Rachael Moncada RN Edited Resul t - Final * SCAN - LABS (05/23/2024 6:14 PM CYBER SYSTEMS ENGINEER) us Rachael Moncada RN Final Result * SCAN - LABS (05/05/2024 8:03 AM CYBER SYSTEMS ENGINEER) Result Rene Moncada RN Final Result * SCAN - LABS (05/03/2024 2:43 PM CYBER SYSTEMS ENGINEER) Result Rene Moncada RN Final Result * SCAN - LABS (04/14/2024 4:53 PM CYBER SYSTEMS ENGINEER) Result Rene Moncada RN Edited Resul t - Final * POCT glucose (04/13/2024 4:15 PM CYBER SYSTEMS ENGINEER) [facility] Glucose, POC 182 70 - 199 mg/dL Blood 04/13/2024 4:15 PM CYBER SYSTEMS ENGINEER 04/13/2024 4:15 PM CYBER SYSTEMS ENGINEER Quynh Mims MD LAB POCT ORDERABLES - DEVICE Final Result [facility] Department [place] [address] * SCAN - LABS (04/13/2024 6:57 AM CYBER SYSTEMS ENGINEER) Result Rene Moncada RN Final Result * SCAN - LABS (04/11/2024 11:45 AM CYBER SYSTEMS ENGINEER) us Rachael Moncada RN Final Result * SCAN - LABS (03/24/2024 2:46 PM CYBER SYSTEMS ENGINEER) us Rachael Moncada RN Edited Resul t - Final * CT Chest Abdomen Pelvis W Contrast (03/23/2024 8:24 AM CYBER SYSTEMS ENGINEER) Anatomical Region Laterality Modality Body N/A Computed Tomogra phy 03/23/2024 9:14 AM CYBER SYSTEMS ENGINEER Impressions 03/23/2024 9:27 AM CYBER SYSTEMS ENGINEER 1. ??New pulmonary nodules measuring 5 mm [...] Kaur MD, PHD Narrative 03/23/2024 9:27 AM CYBER SYSTEMS ENGINEER EXAMINATION: ??Computed tomography of the chest, abdomen [...] Result * POCT creatinine (03/23/2024 7:59 AM CYBER SYSTEMS ENGINEER) [facility] Creatinine POC 0.7 0.6 - 1.1 mg/dL Blood 03/23/2024 7:59 AM CYBER SYSTEMS ENGINEER 03/23/2024 7:59 AM CYBER SYSTEMS ENGINEER Result Rene Mims MD LAB POCT ORDERABLES - DEVICE Final Result [facility] Department [place] [address] * SCAN - LABS (03/23/2024 6:52 AM CYBER SYSTEMS ENGINEER) Result Rene Moncada RN Final Result * SCAN - LABS (03/21/2024 3:26 PM CYBER SYSTEMS ENGINEER) us Rachael Moncada RN Edited Resul t [...] 8:02 AM CDT 01/12/2024 8:11 AM CDT us Quynh Mims MD LAB BLOOD ORDERABLES Final Result Performing Organization Address City/State/[facility] Co de Phone Number [facility] [address] Department [place] [address] * Colonoscopy (10/23/2023 8:19 AM CDT) Anatomical Region Laterality Modality Other Narrative Procedure Note Winston Aaron MD - 10/23/2023 8:19 AM CDT ENDOSCOPY LAB Patient Name: Arti Corrigan Procedure Date: 10/23/2023 8:19 AM Admit Type: Outpatient Room: [facility] Date of : 1955 Instrument Name: [id number] [...] % Estimated Average Glucose 157 mg/dL [facility] Comment: The ADA recommends reporting an estimated Average Glucose (eAG) with all Hemoglobin A1c results using the equation derived from a study of 507 normal and diabetic adults. ??Minority populations were underrepresented and children were not included. ?? (Diabetes Care 2020; 43(S1): S66-S76). ??The eAG is not equivalent to a fasting glucose. Blood 09/17/2023 10:3 5 AM CDT 09/17/2023 1:57 PM CDT Maranda D. Goldy CAMPAIGN CONSULTANT LAB BLOOD ORDERABLES Final Re [facility] Organization Address City/State/ZIP Co de Phone Number [facility] Department [place] [address] from Last 3 Months or Most Recently Relevant to Health Maintenance Insurance [facility] MEDICARE [facility] MEDICARE IDPA Advance Directives For more information, please contact: [phone] * Full Code (Latest Code Status on File) Date Activated Date Inactivated Comments 10/23/2023 7:57 AM 10/23/2023 1:38 PM Care Teams Certified Bench Jeweler Technician Relationship Specialty Start Date End Date Andrea Chandler MD PCP - General Internal Medicine 03/31/23
--- OUTSIDE RECORDS SUMMARY | 2024-06-13 10:39 | XMS_ITS | Clinical Summary ---
Author Organization [facility] Address [address] [place] [address]. 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 Gender Identity Not on file Sexual Orientation Not on file Plan of Treatment Health Maintenance Due Date Last Done Comments Colorectal Cancer Screening Colonoscopy (10 Years) 1955 Hepatitis C 1975 DTaP, Tdap and Td Vaccines ( 1 - Tdap) 02/13/1976 Mammogram Screening 1997 Zoster Vaccines (1 of 2) 2007 Dexa Scan (General) 2022 Pneumococcal Vaccine: 65+ Ye ars (1 of 1 - PCV) 2022 COVID-19 Vaccine ( - 2023-2 5 season) 2024 Influenza Adult (#1) 2024 RSV Immunization or 60+ Years (1 - 1-dose 75+ series) 02/13/2032 Meningococcal B Vaccine Aged Out No l onger eligible based on patient's age to complete this topic Meningococcal Vaccine Aged Out No basilio nola eligible based on patient's age to complete this topic RSV Immunizations Under 20 Months Aged Out No longer eligible based on patient's age to complete this topic
--- OUTSIDE RECORDS SUMMARY | 2024-06-13 10:40 | XMS_ITS | Clinical Summary ---
Author Organization [facility] Address [address] [address] Phone Care Team Providers Care Supervisor Cell Maintenance Name Role Phone ShawnEmery squires Marian GRIFFIN Primary Care Provider [phone] Allergies No known active allergies Medications metFORMIN (GLUCOPHAGE) 1000 MG Tablet Take 1,000 mg by mouth 2 times daily (with meals). Active verapamil (COVERA HS) 180 MG CAPSULE SR 24 HR Take 180 mg by mouth daily. Active gabapentin (NEURONTIN) 300 MG Capsule Take 300 mg by mouth 2 times daily. Active lisinopril (PRINIVIL, ZESTRIL) 40 MG Tablet Take 40 mg by mouth daily. Active atorvastatin (LIPITOR) 10 MG Tablet Take 10 mg by mouth daily. Active Omeprazole 20 MG Tablet Delayed Response Take 1 Tab by mouth daily. Active Multiple Vitamins-Minera ls (MULTIVITAMIN ADULT PO) Take 1 Tab by mouth daily. Active fexofenadine (LUCIE) 180 MG TabletIndicatio ns:walfex Take 180 mg by mouth daily. Indications: walfex Active Dulaglutide (TRULICITY) 0.75 MG/0.5ML Solution Pen-injector by Subcutaneous route once a week. Active ferrous sulfate 325 (65 Fe) MG TabletIndicatio ns:Iron deficiency anemia, unspecified iron deficiency anemia type Take 1 Tab by mouth 2 times daily. 90 Tab 9 Active Active Problems Problem Noted Date Diagnosed Date Fatigue 01/26/2019 Iron deficiency anemia due to chronic blood loss 10/26/2018 Absolute anemia Family History Medical History Relation Name Comments Cancer Brother Cancer Father lung No Known Problems Mother Hypertension Paternal Grandmother Cancer Sister Relation Name Status Comments Brother Father Mother Paternal Grandmother Sister Social History Tobacco Use Types Packs/Day Years Used Date Smoking Tobacco: Some Days Cigarettes 1.5 40 Smokeless Tobacco: Never Alcohol Use Standard Drinks/Week Comments Yes 0 (1 standard drink = 0.6 oz pur e alcohol) once a month, 1 or 2 beers PHQ-2 Answer Date Recorded PHQ-2 Score 0 01/12/2019 Comments No Sex and Gender Information Value Date Recorded Sex Assigned at Not on file Legal Sex Female 10:16 AM PROFESSIONAL BASS FISHER Gender Identity Not on file Sexual Orientation Not on file Last Filed Vital Signs Vital Sign Reading Time Taken Comments Blood Pressure 144/72 01/26/2020 2:53 PM CDT Pulse 84 01/26/2020 2:53 PM CDT Temperature 36.8 ??C (98.2 ??F) 01/26/2020 2:53 PM CD T Respiratory Rate 18 01/26/2020 2:53 PM CDT Oxygen Saturation 95% 01/26/2020 2:53 PM CDT Inhaled Oxygen Concentration - - Weight 87.3 kg (192 lb 8 oz) 01/26/2020 2:53 PM CDT Height 160 cm (5' 3 ) 01/26/2020 2:53 PM CDT Body Mass Index 34.1 01/26/2020 2:53 PM CDT Plan of Treatment Health Maintenance Due Date Last Done Comments DEXA Bone Density 1955 Hepatitis C Virus (HCV) Screening 1955 TdaP Immunization 1955 Cologuard 2007 Immunochemical Fecal Occult Blood 2007 Mammogram 2007 Pneumococcal Immunization (5 0+ years) (1 of 1 - PCV) 2007 Zoster Immunization (1 of 2) 2007 Influenza Immunization (#1) 01/10/202401/10, 03/08/2018 SARS-COV-2 Immunization ( season) 2024 04/26/2021, 08/14/2020, 07/17/2020 Colonoscopy 09/13/2028 09/13/2018, 08/26/2018 Colorectal Cancer Screening 09/13/2028 Respiratory Syncytial Virus (RSV) Immunization (Adult) (1 - 1-dose 75+ series) 02/13/2032 09/13/2018, 08/26/2018 Lung Cancer Screening Discontinued 04/13/2019 , 10/09/2018 Hepatitis B Immunization Aged Out No longer eligible based on patient's age to complete this topic Meningococcal Immunization (ACWY) Aged Out No longer eligible based on patient's age to complete this topic Rotavirus Immunization Aged Out No lo nger eligible based on patient's age to complete this topic Procedures Procedure Name Priority Date/Time Associated Diagnosis Comments CT CHEST W/O CONTRAST Routine 04/13/2019 9:22 AM PROFESSIONAL BASS FISHER Lung nodule < 6cm on CT from Last 3 Months or Most Recently Relevant to Health Maintenance Results * CT CHEST W/O CONTRAST (04/13/2019 9:22 AM PROFESSIONAL BASS FISHER) Anatomical Region Laterality Modality Chest N/A Computed Tomogra phy 04/13/2019 9:40 AM PROFESSIONAL BASS FISHER Impressions 04/13/2019 9:43 AM PROFESSIONAL BASS FISHER IMPRESSION: ?? 1. ??A 5 mm ground-glass nodule is noted in the periphery of the right upper lobe, corresponding to the nodule of concern on the previous study. ??There has been no significant interval change in size or appearance. ??Nodules smaller than 6 mm require no specific follow-up according to current guidelines, but if patient is considered high risk an optional follow-up can be performed in 12 months. ??No new lung nodules are noted. 2. ??Mild emphysema with upper lung predominance. 3. ??Other incidental findings as described above. Narrative 04/13/2019 9:43 AM PROFESSIONAL BASS FISHER EXAM DESCRIPTION: ??CT CHEST W/O CONTRAST REASON FOR STUDY: ??Lung nodule. ??Six-month follow-up. TECHNIQUE: ??CT scan of the chest performed without intravenous contrast using helical scanning technique. Reconstructed coronal and sagittal MPR images reviewed. ??All images stored on PACS. ??Automated exposure control was used as a dose optimization technique for this examination. COMPARISON: ??CT of the chest dated 10/09/2018. FINDINGS: ??The sensitivity for detection of solid visceral lesions is diminished without the use of intravenous contrast. LUNGS: A tiny ground-glass nodule is noted in the periphery of the right upper lobe, image 39, measuring 5 mm. ??This corresponds to the nodule of concern seen on the previous study, demonstrating no significant interval change. ??No new lung nodules are noted. ??There is no focal consolidation. ??Mild emphysema with upper lung predominance. ??Minimal scarring in the right middle lobe medial segment, and in the inferior lingular segment. ??The airway is widely patent. ??Normal bronchial caliber. ??No significant bronchial wall thickening. PLEURA: No pleural effusion or pneumothorax. MEDIASTINUM/GRETA: No suspicious lymphadenopathy is noted in the mediastinal or hilar chains on this noncontrast study. ??No suspicious masses. HEART: Heart size is upper limits of normal. ??There is no pericardial thickening or effusion. VASCULATURE: The thoracic aorta is mildly atherosclerotic, but normal in course and caliber. ??Central pulmonary arteries have normal caliber. AXILLA: No adenopathy. CHEST WALL: No masses. ??No subcutaneous air. HARDWARE/LINES/TUBES: None. UPPER ABDOMEN: Imaged portions of the liver, spleen, pancreas, and right adrenal gland are unremarkable. ??There is a low-attenuation nodule in the left adrenal gland, measuring approximately 2.3 cm in greatest diameter on axial image 108. ??The attenuation of this nodule is consistent with a benign adrenal myelolipoma. ??No additional follow-up or workup is required for this finding. ??A cyst is faintly seen in the upper pole of left kidney, better evaluated on previous contrast enhanced CT of the abdomen and pelvis dated 10/09/2018. MUSCULOSKELETAL: Examination of bone windows demonstrates no suspicious lytic or blastic lesions. ??There is mild degenerative disease in the thoracic spine. OTHER: No other significant abnormality. THIS IS AN ELECTRONICALLY VERIFIED FINAL REPORT 04/13/2019 9:40 AM - Electronically signed by Rojelio Yun M.D. RL: DEVIN D: ??04/13/2019 9:40 AM T: ??04/13/2019 9:40 AM Report ID: [id number] Reading Location: ??[id number] Procedure Note Rojelio Yun MD - 04/13/2019 EXAM DESCRIPTION: CT CHEST W/O CONTRAST REASON FOR STUDY: Lung nodule. Six-month follow-up. TECHNIQUE: CT scan of the chest performed without intravenous contrast using helical scanning technique. Reconstructed coronal and sagittal MPR images reviewed. All images stored on PACS. Automated exposure control was used as a dose optimization technique for this examination. COMPARISON: CT of the chest dated 10/09/2018. FINDINGS: The sensitivity for detection of solid visceral lesions is diminished without the use of intravenous contrast. LUNGS: A tiny ground-glass nodule is noted in the periphery of the right upper lobe, image 39, measuring 5 mm. This corresponds to the nodule of concern seen on the previous study, demonstrating no significant interval change. No new lung nodules are noted. There is no focal consolidation. Mild emphysema with upper lung predominance. Minimal scarring in the right middle lobe medial segment, and in the inferior lingular segment. The airway is widely patent. Normal bronchial caliber. No significant bronchial wall thickening. PLEURA: No pleural effusion or pneumothorax. MEDIASTINUM/GRETA: No suspicious lymphadenopathy is noted in the mediastinal or hilar chains on this noncontrast study. No suspicious masses. HEART: Heart size is upper limits of normal. There is no pericardial thickening or effusion. VASCULATURE: The thoracic aorta is mildly atherosclerotic, but normal in course and caliber. Central pulmonary arteries have normal caliber. AXILLA: No adenopathy. CHEST WALL: No masses. No subcutaneous air. HARDWARE/LINES/TUBES: None. UPPER ABDOMEN: Imaged portions of the liver, spleen, pancreas, and right adrenal gland are unremarkable. There is a low-attenuation nodule in the left adrenal gland, measuring approximately 2.3 cm in greatest diameter on axial image 108. The attenuation of this nodule is consistent with a benign adrenal myelolipoma. No additional follow-up or workup is required for this finding. A cyst is faintly seen in the upper pole of left kidney, better evaluated on previous contrast enhanced CT of the abdomen and pelvis dated 10/09/2018. MUSCULOSKELETAL: Examination of bone windows demonstrates no suspicious lytic or blastic lesions. There is mild degenerative disease in the thoracic spine. OTHER: No other significant abnormality. THIS IS AN ELECTRONICALLY VERIFIED FINAL REPORT 04/13/2019 9:40 AM - Electronically signed by Rojelio Yun M.D. RL: DEVIN Report ID: [id number] Reading Location: [id number] IMPRESSION: 1. A 5 mm ground-glass nodule is noted in the periphery of the right upper lobe, corresponding to the nodule of concern on the previous study. There has been no significant interval change in size or appearance. Nodules smaller than 6 mm require no specific follow-up according to current guidelines, but if patient is considered high risk an optional follow-up can be performed in 12 months. No new lung nodules are noted. 2. Mild emphysema with upper lung predominance. 3. Other incidental findings as described above. Art Lea MD IMG CT ORDERABLES Final Result from Last 3 Months or Most Recently Relevant to Health Maintenance Insurance [place] [id number] Care Teams Supervisor Cell Maintenance Relationship Specialty Start Date End Date Emery Higgins DO [address] [place] [address] PCP - General Internal Medicine 07/13/18
--- OUTSIDE RECORDS SUMMARY | 2024-06-13 10:40 | XMS_ITS | Encounter Summary ---
Author Organization [facility] Address [address] [place] [address] Phone Care Team Providers Care Stemhole Borer And Topper Name Role Phone Emery Higgins Primary Care Provider [phone] Encounter Details Date Type Department Care Team (Late st Contact Info) Description 07/26/2019 [facility] [address] [place] [phone] Marcelo Avendano MD [address] [place], [place] [id number] Social History Tobacco Use Types Packs/Day Years [...] on file Legal Sex Female 10:16 AM JACQUARD LOOM FIXER Gender Identity Not on file Sexual Orientation Not on file documented as of this encounter Miscellaneous Notes * Telephone Encounter - Nicole Morse - 07/26/2019 9:15 AM CDT I contacted the patient to inform her that Dr. Avendano advises her to start oral iron 3 times a day 2hrs after meals, and to make sure she has stool softener for possible constipation. The patient is also not supposed to eat 1 hour after she has taken her iron tablet. The patient had no further questions and is to repeat her lab work 3-5 days prior to her follow up in September. documented in this encounter Plan of Treatment Not on file documented as of this encounter Visit Diagnoses Not on filedocumented in this encounter Additional Health Concerns Infection Onset Date Last Indicated Resolved Time C. difficile Rule-Out 09/08/2019 09/08/20192019 3:19 PM CDT Assessment Noted Time PHQ-9 Depression Total Score: 0 09/14/19 9:47 AM CDT documented as of this encounter Care Teams Stemhole Borer And Topper Relationship Specialty Start Date End Date Emery Higgins DO [address] [place] [address] PCP - General Internal Medicine 07/13/18 documented as of this encounter
[2024-06-13 10:44] LABS: Alanine Aminotransferase 25 U/L (14-59); Albumin Level 3.8 g/dL (3.4-5.0); Alkaline Phosphatase 86 U/L (46-116); Anion Gap 11 mmol/L (4-12); Aspartate Amino Transferase 15 U/L (15-37); Bilirubin,Total 0.4 mg/dL (0.00-1.00); Blood Urea Nitrogen 19 mg/dL (7-18); Calcium 9.2 mg/dL (8.5-10.1); Carbon Dioxide 27 mmol/L (21-32); Chloride 104 mmol/L (98-108); Estimated Glomerular Filt Rate > 60; Glucose 155 mg/dL (70-99); Magnesium 1.7 mg/dL (1.8-2.4); Osmolality Calculated 299 mOsm/kg (285-295); Potassium 4.1 mmol/L (3.5-5.1); Sodium 142 mmol/L (136-145); Total Protein 6.6 g/dL (6.4-8.2)
[2024-06-13 10:55] LABS: Thyroid Stimulating Hormone Reflex 11.91 u/IU/mL (0.36-3.74)
[2024-06-13 10:58] LABS: Free T4 Free Thyroxine Reflex 1.27 ng/dL (0.76-1.46)
[2024-06-15 12:33] LABS: Thyroid Peroxidase Antibodies <1 IU/mL (<9)
[2024-06-15 15:37] LABS: CA-125 20 U/mL (<35)
== END 2024-06-13 09:53 | disposition home or self-care (01) ==
LOC: CHSLAB 09:55
PROVIDERS: PCP Internal Medicine
DX: C54.1 Malignant neoplasm of endometrium (principal); E03.9 Hypothyroidism, unspecified; E11.9 Type 2 diabetes mellitus without complications
CPT/HCPCS: 36415; 80053; 83735; 84439; 84443; 85025; 86304; 86376

== ENCOUNTER 2024-07-04 11:22 | Outpatient (CLI) | payer MEDICARE, MEDICAID, SELFPAY ==
[2024-07-04 11:51] LABS: Basophils Absolute Auto 0.08 K/mm3 (0.00-0.10); Basophils Percent Auto 0.9 % (0.0-1.0); Eosinophils Absolute Auto 0.54 K/mm3 (0.02-0.50); Eosinophils Percent Auto 5.9 % (1.0-6.0); Hematocrit 43.3 % (35.0-42.0); Hemoglobin 13.1 g/dL (11.7-13.8); Immature Granulocyte Absolute 0.06 K/mm3 (0.00-0.00); Immature Granulocyte Percent A 0.7 % (0.0-0.0); Lymphocytes Absolute Auto 2.11 K/mm3 (1.10-4.50); Lymphocytes Percent Auto 23.1 % (18.0-42.0); Mean Corpuscular HGB Conc 30.3 g/dL (32-36); Mean Corpuscular Volume 95.8 fL (78.0-102.0); Mean Platelet Volume 11.6 fl (9.2-11.8); Monocytes Absolute Auto 0.78 K/mm3 (0.10-0.90); Monocytes Percent Auto 8.5 % (2.0-11.0); Neutrophils Absolute Auto 5.58 K/mm3 (1.70-7.20); Neutrophils Percent Auto 60.9 % (50.0-70.0); Platelet Count Result 175 K/mm3 (150-420); Red Blood Count 4.52 M/mm3 (4.20-5.40); Red Cell Distribution Width 13.9 % (11.6-14.4); White Blood Count 9.2 K/mm3 (4.8-10.8)
[2024-07-04 12:26] LABS: Alanine Aminotransferase 21 U/L (14-59); Albumin Level 3.5 g/dL (3.4-5.0); Alkaline Phosphatase 96 U/L (46-116); Anion Gap 17 mmol/L (4-12); Aspartate Amino Transferase 16 U/L (15-37); Bilirubin,Total 0.3 mg/dL (0.00-1.00); Blood Urea Nitrogen 22 mg/dL (7-18); Calcium 8.7 mg/dL (8.5-10.1); Carbon Dioxide 22 mmol/L (21-32); Chloride 103 mmol/L (98-108); Estimated Glomerular Filt Rate 49; Free T4 Free Thyroxine 1.13 ng/dL (0.76-1.46); Glucose 198 mg/dL (70-99); Magnesium 1.6 mg/dL (1.8-2.4); Osmolality Calculated 303 mOsm/kg (285-295); Sodium 142 mmol/L (136-145); Thyroid Stimulating Hormone 8.86 uIU/mL (0.36-3.74); Total Protein 6.7 g/dL (6.4-8.2)
--- OUTSIDE RECORDS SUMMARY | 2024-07-04 13:21 | XMS_ITS ---
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 Pembrolizumab 21 Day Cycles - HOD CARRIER (Carbo Completed)* Plan Start Date:04/30/2023 Plan Provider:Quynh Mims MD Linked Problems Endometrial cancer (CMS/HCC) (HCC) Treatment Medications Current Day (Day 1 , Cycle 20 - Planned for 07/06/2024) Next Day (Day 1, Cycle 21 - Planned for 07/27/2024) CARBOplatin (PARAPLATIN) IVP B in 250 mL (by AUC: GOG)PACLItaxel (TAXOL) IVPB in 500 mLpembrolizumab (KEYTRUDA)pembrolizumab (KEYTRUDA) IVPB in 100 mL pembrolizumab (KEYTRUDA) 200 mg in sodium chloride 0.9% 100 mL pembrolizumab (KEYTRUDA) 200 mg in sodium chloride 0.9% 100 mL Past Treatment and Therapy Plans No past plan information found. Lifetime Dose Tracking * Chemical Lifetime Dose Automatic Entry Manual Entr y Fluoro Time 0.4 minutes 0.4 minutes 0 minutes Air kerma at the reference point (Ka,r) 1 mGy 1 mGy 0 mGy DLP 721 mGycm 721 mGycm 0 mGycm
--- OUTSIDE RECORDS SUMMARY | 2024-07-04 13:21 | XMS_ITS | Patient Health Record ---
Author Organization [facility] Address [address] [place] [address] Care Team Providers Care Staker Surveying Name Role Phone Madeline Benton Primary Care Provider [phone] Reason For Referral No Information Medications Medication SIG (Take, Route, Frequency, Duration) Notes Start Date End Date Status Jardiance 10 MG 1 tablet Orally Once a day for 30 day(s) Active Cholestyramine 4 GM 1 packet mixed with water or non-carbonated drink Orally Once a day for 30 day(s) Active Vitamin B-12 1000 MCG as directed Orally Active iron 1 tab Oral for 14 days Active Cherelle 60 MG as directed Orally Active metFORMIN HCl 500 MG 1 tablet with a johnathan l Orally Once a day for 30 day(s) Active Verapamil HCl 40 MG 1 tablet Orally Thre e times a day for 30 day(s) Active Atorvastatin Calcium 10 MG 1 tablet Oral ly Once a day for 30 day(s) Active Omeprazole 10 MG 1 capsule 30 minutes before morning meal Orally Once a day for 30 day(s) Active Social History Tobacco Use: Social History Observation Description Date Details (start date - stop date) Current Smoker NA - NA Tobacco Use/Smoking Question Answer Notes Are you a current smoker Plan Of Treatment No Information Insurance Providers Payer Name Payer Address Payer Phone Subscriber Number Group Number Insured Name Patient Relationship to Insured Coverage Start Date Coverage End Date [facility] [address] [place] [id number] Arti Corrigan Self - patient is the insured [employer] [address] [place] [address] [id number] Arti Corrigan Self - patient is the insured Medical (General) History Medical History History ICD Code high blood pressure diabetes Surgical History Surgery Date(Month/Year) tonsils removed galbladder removed thumb
--- OUTSIDE RECORDS SUMMARY | 2024-07-04 13:21 | XMS_ITS | Encounter Summary ---
Author Organization [facility] Address [address] [place] [address] Phone Care Team Providers Care Client Administrator Name Role Phone Emery Higgins Primary Care Provider [phone] Encounter Details Date Type Department Care Team (Late st Contact Info) Description 07/26/2019 Telephone [facility] On[facility] [address] [place] [phone] Marcelo Avendano MD [address] [place], [place] [id number] Social History Tobacco Use Types Packs/Day Years [...] on file Legal Sex Female 10:16 AM ETL DEVELOPER Gender Identity Not on file Sexual Orientation [...] documented as of this encounter Care Teams Client Administrator Relationship Specialty Start Date End Date Emery Higgins DO [address] [place] [address] PCP - General Internal Medicine 07/13/18 documented as of this encounter
--- OUTSIDE RECORDS SUMMARY | 2024-07-04 13:21 | XMS_ITS | Encounter Summary ---
Author Organization [facility] Address [facility] [place] [address] Care Team Providers Care Toaster Element Repairer Name Role Phone Unavailable Primary Care Provider Unavailabl e Encounter Details Date Type Department Care Team (Late st Contact Info) Description 10/16/2018 Abstract [facility] CONVERSION [address] [place] [address] , Generic Conversion, Social History Tobacco Use Types Packs/Day Years Used Date Smoking Tobacco: Never Assessed Comments Unknown Sex and Gender Information Value Date Recorded Sex Assigned at Not on file Legal Sex Female 5:43 PM INFORMATION BROKER Gender Identity Not on file Sexual Orientation Not on file documented as of this encounter Plan of Treatment Not on file documented as of this encounter Visit Diagnoses Not on filedocumented in this encounter
--- OUTSIDE RECORDS SUMMARY | 2024-07-04 13:21 | XMS_ITS | Clinical Summary ---
Author Organization [facility] Address [facility] [place] [address] Care Team Providers Care Debeaker Name Role Phone Unavailable Primary Care Provider Unavailabl e Social History Tobacco Use Types Packs/Day Years Used Date Smoking Tobacco: Never Assessed Comments Unknown Sex and Gender Information Value Date Recorded Sex Assigned at Not on file Legal Sex Female 5:43 PM BAND SAWYER Gender Identity Not on file Sexual Orientation [...] of 1 - PCV) 2022 COVID-19 Vaccine (2023-2 5 season) 2024 Influenza Adult (#1) 2024 [...]
--- OUTSIDE RECORDS SUMMARY | 2024-07-04 13:21 | XMS_ITS | Clinical Summary ---
Author Organization [facility] [address] Address [address] [place] [address] Care Team Providers Care Manager Spa Name Role Phone Andrea Chandler MD Primary Care Provider [phone] Allergies Active Allergy Reactions Criticality Noted Date Comments Paclitaxel Shortness of breath,Other (See comments),Flushing (skin) High 05/12/2023 Patient reports feeling hot and thought she was going to pass out, tightness in head Medications verapamil SR (CALAN SR) 240 mg CR tabletIndicat ions:hyperten damian Take 1 tablet (240 mg total) by mouth every morning 04/15/20 23 Active montelukast (SINGULAIR) 10 mg tabletIndicat ions:Seasonal Allergic Rhinitis Take 1 tablet (10 mg total) by mouth every evening 01/29/20 23 Active atorvastatin (LIPITOR) 10 mg tabletIndicat ions:hyperlip idemia Take 1 tablet (10 mg total) by mouth nightly Active fexofenadine (Cherelle Allergy) 60 mg tabletIndicat ions:Seasonal Allergic Rhinitis Take 1 tablet (60 mg total) by mouth every morning Active omeprazole 20 mg tablet,delaye d release (DR/EC)Indica tions:Treatme nt of Non-Bleeding Gastric Disorder Take 1 tablet (20 mg total) by mouth every morning Active multivitamin (MULTIPLE VITAMINS ORAL)Indicati ons:supplemen t Take 1 tablet by mouth every morning Active ferrous sulfate 325 mg (65 mg of elemental iron) tabletIndicat ions:Iron Deficiency Anemia Take 1 tablet (325 mg total) by mouth 2 (two) times a day 09/14/19 19 Active OLANZapine (ZyPREXA) 5 mg tabletIndicat ions:Endometr ial cancer (CMS/HCC) (HCC) Take 1 tablet (5 mg total) by mouth daily Take on Days 2, 3, and 4 of each cycle. 9 tablet 1 05/04/20 23 Active LORazepam (ATIVAN) 0.5 mg tabletIndicat ions:Endometr ial cancer (CMS/HCC) (HCC) Take 1 tablet (0.5 mg total) by mouth every 6 (six) hours as needed (nausea, vomiting) May begin on day 5 if needed. 30 tablet 3 05/04/20 23 Active Additional Information Patient not taking.Informant: Self, Reported on 06/15/2024 ondansetron (ZOFRAN) 8 mg tabletIndicat ions:Endometr ial cancer (CMS/HCC) (HCC) Take 1 tablet (8 mg total) by mouth every 8 (eight) hours as needed for nausea or vomiting May begin day 5 if needed. 30 tablet 3 05/04/20 23 Active neomycin (MYCIFRADIN) 500 mg tablet Take 2 tablets at 1 PM, 2 PM, and 10 PM the day before surgery. 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 Active loratadine 10 mg capsuleIndica tions:Allergi c Rhinitis Take 1 capsule by mouth every morning Active acetaminophen (TYLENOL) 500 mg tabletIndicat ions:Pain Take 2 tablets (1,000 mg total) by mouth every 6 (six) hours as needed for pain 60 tablet 09/21/19 24 Active ibuprofen (ADVIL,MOTRIN ) 600 mg tabletIndicat ions:Pain Take 1 tablet (600 mg total) by mouth every 6 (six) hours as needed for pain 30 tablet 09/21/19 24 Active oxyCODONE (ROXICODONE) 5 mg immediate release tabletIndicat ions:Pain Take 1 tablet (5 mg total) by mouth every 4 (four) hours as needed for pain 10 tablet 09/21/19 24 Active Additional Information Patient not taking.Reported on 06/15/2024 polyethylene glycol (GoLYTELY) 236-22.74-6.7 4 -5.86 gram solution At 4:00 pm day prior to procedure: start the prep solution-drink one 8 ounce glass every 15 minutes until half of the gallon/64 ounces is gone. 6-8 hours prior to leaving home for the procedure-drink the remaining half gallon or 64 ounces of prep solution DO NOT DRINK ANYTHING ELSE UNTIL AFTER YOUR TEST 4000 mL 10/02/19 24 Active ketoconazole (NIZORAL) 2 % shampoo Apply topically 2 (two) times a week Use 3 days in a row and then go to 1-2x weekly. Apply to damp skin, lather, leave on 5 minutes, and rinse 120 mL 1 10/19/19 24 Active Additional Information Patient not taking.Reported on 06/15/2024 insulin glargine 100 unit/mL (3 mL) pen for injection Inject 40 Units under the skin daily Active triamcinolone (KENALOG) 0.1 % ointmentIndic ations:Tinea corporis Apply to area of rash/itching on the thigh twice daily. Avoid applying to face/armpits/gr oin. 454 g 1 03/10/20 24 Active TRESIBA 100 unit/mL (3 mL) pen for injection INJECT BY 30 UNITS SUBCUTANEOUS ROUTE AT BEDTIME 02/29/20 24 Active letrozole (FEMARA) 2.5 mg tablet Take 1 tablet (2.5 mg total) by mouth daily 30 tablet 5 05/17/19 25 025 Active levothyroxine (SYNTHROID) 125 mcg tablet TAKE 2 TABS (250 MCG DOSE) BY ORAL ROUTE ONCE DAILY 04/28/[address] (CYMBALTA) 30 mg capsuleIndica tions:Endomet rial cancer (CMS/HCC) (HCC) Take 1 capsule (30 mg total) by mouth daily 30 capsule 11 06/15/19 25 026 Active megestroL (MEGACE) 40 mg tabletIndicat ions:Endometr ial Carcinoma Take 1 tablet (40 mg total) by mouth 2 (two) times a day 60 tablet 5 06/16/[address] (CYMBALTA) 60 mg capsuleIndica tions:pt unsure of indication Take 1 capsule (60 mg total) by mouth every morning 04/15/20 23 025 Discontinued megestroL (MEGACE) 40 mg tablet Take 1 tablet (40 mg total) by mouth 2 (two) times a day 60 tablet 5 12/11/19 24 025 Discontinued(R eorder) Active Problems Problem Noted Date Diagnosed Date [...] Encounters Date Type Department Care Team Description 06/15/2024 2:00 PM PERSONNEL CONSULTANT [facility] ([facility]) [address] [place] [id number] Endometrial cancer (CMS/HCC) (HCC) (Primary Dx) 06/15/2024 1:00 PM PERSONNEL CONSULTANT Office Visit [facility] Obstetrics and Gynecology [address] [place] [address] Advanced Medicine 13th [place] [address] Quynh Mims MD Endometrial cancer (CMS/HCC) (HCC) 06/15/2024 Orders Only [facility] Rachael Moncada RN 06/13/2024 Orders Only [facility] Rachael Moncada RN Endometrial cancer (CMS/HCC) (HCC) (Primary Dx) 05/25/2024 10:00 AM PERSONNEL CONSULTANT [facility] ([facility]) [address] [place] [id number] Endometrial cancer (CMS/HCC) (HCC) (Primary Dx) 05/25/2024 9:15 AM PERSONNEL CONSULTANT Office Visit [facility] Obstetrics and Gynecology [address] [place] [address] Advanced Medicine 13th [place] [address] Quynh Mims MD Endometrial cancer (CMS/HCC) (HCC) 05/25/2024 Orders Only Rachael Sena RN Endometrial cancer (CMS/HCC) (HCC) (Primary Dx); Chemotherapy management, encounter for 05/23/2024 Orders Only Rachael Sena RN Endometrial cancer (CMS/HCC) (HCC) (Primary Dx) 05/06/2024 3:00 PM PERSONNEL CONSULTANT [facility] ([facility]) [address] [place] [address] Endometrial cancer (CMS/HCC) (HCC) (Primary Dx) 05/05/2024 Orders Only [facility] OB Rachael Rm RN Endometrial cancer (CMS/HCC) (HCC) (Primary Dx) 05/03/2024 Orders Only Rachael Sena RN 04/14/2024 Orders Only Rachael Sena RN 04/13/2024 3:27 PM PERSONNEL CONSULTANT - 04/13/2024 11:59 PM PERSONNEL CONSULTANT Hospital Encounter [facility] ([facility]) [address] [place] [address] Quynh Mims MD Endometrial cancer (CMS/HCC) (HCC) (Primary Dx) Discharge Disposition: Discharge to home or self care 04/13/2024 3:15 PM PERSONNEL CONSULTANT Office Visit [facility] Obstetrics and Gynecology [address] [place] [address] 13th [place] [address] [place] [address] Quynh Mims MD Endometrial cancer (CMS/HCC) (HCC) 04/13/2024 Orders Only Rachael Sena RN Endometrial cancer (CMS/HCC) (HCC) (Primary Dx) 04/11/2024 Orders Only Rachael Sena RN 04/04/2024 Telephone [facility] Obstetrics and Gynecology [address] [place] [address] 13th [place] [address] [place] [phone] Rachael Moncada RN from Last 3 Months Immunizations Immunization Administration Dates Next Due Influenza, Quad, Adjuvantate [...] Tobacco: Never Tobacco Cessation:Ready to Q uit: Not Asked; Counseling Given: Not Answered AUDIT-C Answer Date Recorded Q1: How often [...] on file Legal Sex Female 3:27 AM PERSONNEL CONSULTANT Gender Identity Not on file Sexual Orientation Not on file Obstetrics History Para Term AB IAB SAB Ectopic Multiple Livin g Live Births 1 1 1 Date Outcome GA Total Labor Labor/2nd/3rd Weight Sex Type Anes PTL Perla A1 A5 Name Clin Para Comments x1 Last Filed Vital Signs Vital Sign Reading Time Taken Comments Blood Pressure 119/74 06/15/2024 12:57 PM PERSONNEL CONSULTANT Pulse 86 06/15/2024 12:57 PM PERSONNEL CONSULTANT Temperature 37.2 C (99 F) 06/15/2024 12:57 PM PERSONNEL CONSULTANT Respiratory Rate 16 06/15/2024 12:57 PM PERSONNEL CONSULTANT Oxygen Saturation 98% 06/15/2024 12:57 PM PERSONNEL CONSULTANT Inhaled Oxygen Concentration - - Weight 82.6 kg (182 lb) 06/15/2024 12:57 PM PERSONNEL CONSULTANT Height 157.5 cm (5' 2 ) 06/15/2024 12:57 PM PERSONNEL CONSULTANT Body Mass Index 33.29 06/15/2024 12:57 PM PERSONNEL CONSULTANT Plan of Treatment Health Maintenance Due Date Last Done Comments Albumin Creatinine Ratio, Urine 1955 Breast Cancer Screening-Mammogram 1955 Depression Screening 1955 Hepatitis C Screening 1955 Osteoporosis Screening-Bone Density Scan 1955 Dilated Eye Exam 1955 Foot Exam 1955 Lipid Panel 1955 DTaP/Tdap/Td Vaccine (1 - Tdap) 02/13/1968 Hepatitis B Screening 1975 Pneumococcal vaccine 65+ (1 of 2 - PCV) 02/13/1976 Zoster Vaccine (1 of 2) 02/13/1976 Well Visit 65+ 2022 Covid-19 Vaccine (4 - 2023-2 5 season) 2024 04/26/2021, 08/14/2020, 07/17/2020 Influenza Vaccine (#1) 2024 , 02/11/2022, 01/31/2019, Additional history exists Hemoglobin A1C 03/19/2024 09/17/2023, 04/17/2023 Fall Risk Assessment 10/22/2024 10/23/2023 eGFR 01/11/2025 01/12/2024, 05/0 01/2024, 05/06/2023, Additional history exists Colon Cancer Screening-Colonoscopy 10/22/20332023 Medical Devices Implanted Type Area Arranger Assembler Device Identifier Shelf Expiration Date Model / Serial / Lot [employer] Excela Low Porfile Power Port 8fr 1.6mm 1 Lumen [id number] - [id number] Implanted:Qty: 1 on 05/06/2023 at [facility] [employer] 01/04/2028 [id number] / / [id number] Procedures Procedure Name Priority Date/Time Associated Diagnosis Comments SCAN - LABS 06/15/2024 5:37 PM PERSONNEL CONSULTANT SCAN - LABS 06/13/2024 11:26 AM PERSONNEL CONSULTANT SCAN - LABS 05/25/2024 11:12 AM PERSONNEL CONSULTANT SCAN - LABS 05/23/2024 6:14 PM PERSONNEL CONSULTANT SCAN - LABS 05/05/2024 8:03 AM PERSONNEL CONSULTANT SCAN - LABS 05/03/2024 2:43 PM PERSONNEL CONSULTANT SCAN - LABS 04/14/2024 4:53 PM PERSONNEL CONSULTANT POCT GLUCOSE DEVICE Routine 04/13/2024 4 :15 PM PERSONNEL CONSULTANT SCAN - LABS 04/13/2024 6:57 AM PERSONNEL CONSULTANT SCAN - LABS 04/11/2024 11:45 AM PERSONNEL CONSULTANT EGFR Routine 01/12/2024 8:02 AM CDT Endometrial cancer (CMS/HCC) (HCC) COLONOSCOPY 10/23/2023 8:19 AM CDT HEMOGLOBIN A1C Routine 09/17/2023 10:35 AM CDT Preoperative testing Diabetes mellitus without complication (CMS/HCC) (HCC) from Last 3 Months or Most Recently Relevant to Health Maintenance Results * SCAN - LABS (06/15/2024 5:37 PM PERSONNEL CONSULTANT) Result Rene Moncada RN Edited Resul t - Final * SCAN - LABS (06/13/2024 11:26 AM PERSONNEL CONSULTANT) Result Rene Moncada RN Final Result * SCAN - LABS (05/25/2024 11:12 AM PERSONNEL CONSULTANT) Result Rene Moncada RN Edited Resul t - Final * SCAN - LABS (05/23/2024 6:14 PM PERSONNEL CONSULTANT) Result Rene Moncada RN Final Result * SCAN - LABS (05/05/2024 8:03 AM PERSONNEL CONSULTANT) Result Rene Moncada RN Final Result * SCAN - LABS (05/03/2024 2:43 PM PERSONNEL CONSULTANT) Result Rene Moncada RN Final Result * SCAN - LABS (04/14/2024 4:53 PM PERSONNEL CONSULTANT) Result Rene Moncada RN Edited Resul t - Final * POCT glucose (04/13/2024 4:15 PM PERSONNEL CONSULTANT) Glucose, POC 182 70 - 199 mg/dL Blood 04/13/2024 4:15 PM PERSONNEL CONSULTANT 04/13/2024 4:15 PM PERSONNEL CONSULTANT us Quynh Mims MD LAB POCT ORDERABLES - DEVICE Final Result [facility] Department [place] [address] * SCAN - LABS (04/13/2024 6:57 AM PERSONNEL CONSULTANT) Result Rene Moncada RN Final Result * SCAN - LABS (04/11/2024 11:45 AM PERSONNEL CONSULTANT) Result Rene Moncada RN Final Result * eGFR (01/12/2024 8:02 AM CDT) Pathologist [facility] eGFR >90 >=60 mL/min/1. 73 m2 Comment: Interpretive Data Reference Interval Normal >/= 90 mL/min/1.73m2 Mildly decreased* 60 - 89 mL/min/1.73m2 Mildly to moderately decreased 45 - 59 mL/min/1.73m2 Moderately to severely decreased 30 - 44 mL/min/1.73m2 Severely decreased 15 - 29 mL/min/1.73m2 Kidney Failure < 15 mL/min/1.73m2 *Relative to young adult level Estimated glomerular [...] MD LAB BLOOD ORDERABLES Final Result [facility] [address] Department [place] [address] * Colonoscopy (10/23/2023 8:19 AM CDT) Anatomical Region Laterality Modality Other Narrative Procedure Note Winston Aaron MD - 10/23/2023 8:19 AM CDT ENDOSCOPY LAB Patient Name: Arti Corrigan Procedure Date: 10/23/2023 8:19 AM Admit Type: Outpatient Room: [facility] Date of : 1955 Instrument [...] In: 8:30:18 AM Scope Out: 8:43:05 AM us Winston Aaron MD ENDOSCOPY PROCEDURES Final Result * (ABNORMAL) Hemoglobin A1c (09/17/2023 10:35 AM CDT) Hgb A1C 7.1(H) 4.0 - 5.6 % Estimated Average Glucose 157 mg/dL [facility] Comment: The ADA recommends reporting an estimated Average Glucose (eAG) with all Hemoglobin A1c results using the equation derived from a study of 507 normal and diabetic adults. Minority populations were underrepresented and children were not included. (Diabetes Care 2020; 43(S1): S66-S76). The eAG is not equivalent to a fasting glucose. Blood 09/17/2023 10:3 5 AM CDT 09/17/2023 1:57 PM CDT us Maranda Winslow NP LAB BLOOD ORDERABLES Final Re sult [facility] Department [place] [address] from Last 3 Months or Most Recently Relevant to Health Maintenance Insurance [facility] MEDICARE IDND MEDICARE IDND Advance Directives For more information, please contact: [phone] * Full Code (Latest Code Status on File) Date Activated Date Inactivated Comments 10/23/2023 7:57 AM 10/23/2023 1:38 PM Care Teams Manager Spa Relationship Specialty Start Date End Date Andrea Chandler MD PCP - General Internal Medicine 03/31/23
--- OUTSIDE RECORDS SUMMARY | 2024-07-04 13:21 | XMS_ITS | Referral Summary ---
Author Organization [facility] [address] Address [address] [place] [address] Care Team Providers Care Tier Lift Operator Name Role Phone Andrea Chandler MD Primary Care Provider [phone] Encounters Date Type Department Care Team Description 06/15/2024 Orders Only [facility] ON[facility] Rachael Moncada RN 06/15/2024 2:00 PM CHIEF CLINICAL OFFICER [facility] ([facility]) [address] [place] [address] Endometrial cancer (CMS/HCC) (HCC) (Primary Dx) 06/15/2024 1:00 PM CHIEF CLINICAL OFFICER Office Visit [facility] Obstetrics and Gynecology [address] [place] [address] 13th [place] [address] Quynh Mims MD Endometrial cancer (CMS/HCC) (HCC) 06/13/2024 Orders Only Rachael Sena RN Endometrial cancer (CMS/HCC) (HCC) (Primary Dx) 05/25/2024 Orders Only [facility] OB Rachael Rm RN Endometrial cancer (CMS/HCC) (HCC) (Primary Dx); Chemotherapy management, encounter for 05/25/2024 9:15 AM CHIEF CLINICAL OFFICER Office Visit [facility]s [facility]ne[facility] [address] [place] [address] 13th [place] [address] Quynh Mims MD Endometrial cancer (CMS/HCC) (HCC) 05/25/2024 10:00 AM CHIEF CLINICAL OFFICER Infusion [facility] Gynecologic [facility] ([facility]) [address] [place] [address] Endometrial cancer (CMS/HCC) (HCC) (Primary Dx) 05/23/2024 Orders Only [facility] Rachael Moncada RN Endometrial cancer (CMS/HCC) (HCC) (Primary Dx) 05/06/2024 3:00 PM CHIEF CLINICAL OFFICER [facility] Gynecologic On[facility] ([facility]) [address] [place] [address] Endometrial cancer (CMS/HCC) (HCC) (Primary Dx) 05/05/2024 Orders Only [facility] ONCOL[facility] Rachael Moncada RN Endometrial cancer (CMS/HCC) (HCC) (Primary Dx) 05/03/2024 Orders Only [facility] OB Rachael Rm RN 04/14/2024 Orders Only [facility] OB Rachael Rm RN 04/13/2024 Orders Only Rachael Sena RN Endometrial cancer (CMS/HCC) (HCC) (Primary Dx) 04/13/2024 3:27 PM CHIEF CLINICAL OFFICER - 04/13/2024 11:59 PM CHIEF CLINICAL OFFICER Hospital Encounter [facility] ([facility]) [address] [place] [address] Quynh Mims MD Endometrial cancer (CMS/HCC) (HCC) (Primary Dx) Discharge Disposition: Discharge to home or self care 04/13/2024 3:15 PM CHIEF CLINICAL OFFICER Office Visit [facility]s [facility]ne[facility] [address] [place] [address] [facility] 13th [place] [phone] Quynh Mims MD Endometrial cancer (CMS/HCC) (HCC) 04/11/2024 Orders Only [facility] ONCOL[facility] Rachael Moncada RN 04/04/2024 Telephone [facility] [address] [place] [address] Advanced Medicine 13th [place] [phone] Rachael Moncada RN from Last 3 Months Allergies Active Allergy [...] 1 capsule (75 mg total) by mouth intel analyst before breakfast Active loratadine 10 mg capsuleIndica [...] (CYMBALTA) 30 mg capsuleIndica tions:Endomet rial cancer ([facility]/HCC) (HCC) Take 1 capsule (30 mg total) [...] complication, with long-term current use of insulin ([facility]) 11/06/2023 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 anemia 08/25/2023 Renal cyst, left 05/11/2023 Overview (05/11/2023): Complex on CT and sono [ ] Follow on repeat CT scan and if unchanged after NACT, loop in Uro if needs nephrectomy Endometrial cancer ([facility]/HCC) 04/29/2023 Fatigue 01/26/2019 Iron deficiency anemia due to chronic blood loss 10/26/2018 Essential hypertension 04/10/2011 Immunizations Immunization Administration Dates Next Due Influenza, [...] on file Legal Sex Female 3:27 AM CHIEF CLINICAL OFFICER Gender Identity Not on file Sexual Orientation Not on file Last Filed Vital Signs Vital Sign Reading Time Taken Comments Blood Pressure 119/74 06/15/2024 12:57 PM CHIEF CLINICAL OFFICER Pulse 86 06/15/2024 12:57 PM CHIEF CLINICAL OFFICER Temperature 37.2 C (99 F) 06/15/2024 12:57 PM CHIEF CLINICAL OFFICER Respiratory Rate 16 06/15/2024 12:57 PM CHIEF CLINICAL OFFICER Oxygen Saturation 98% 06/15/2024 12:57 PM CHIEF CLINICAL OFFICER Inhaled Oxygen Concentration - - Weight 82.6 kg (182 lb) 06/15/2024 12:57 PM CHIEF CLINICAL OFFICER Height 157.5 cm (5' 2 ) 06/15/2024 12:57 PM CHIEF CLINICAL OFFICER Body Mass Index 33.29 06/15/2024 12:57 PM CHIEF CLINICAL OFFICER Plan of Treatment Not on file Medical Devices Implanted Type Area Marina Manager Device Identifier Shelf Expiration Date Model / Serial / Lot [employer] Excela Low Porfile Power Port 8fr 1.6mm 1 Lumen [id number] - [id number] Implanted:Qty: 1 on 05/06/2023 at [facility] [employer] 01/04/2028 [id number] / / [id number] Procedures Procedure Name Priority Date/Time Associated Diagnosis Comments SCAN - LABS 06/15/2024 5:37 PM CHIEF CLINICAL OFFICER SCAN - LABS 06/13/2024 11:26 AM CHIEF CLINICAL OFFICER SCAN - LABS 05/25/2024 11:12 AM CHIEF CLINICAL OFFICER SCAN - LABS 05/23/2024 6:14 PM CHIEF CLINICAL OFFICER SCAN - LABS 05/05/2024 8:03 AM CHIEF CLINICAL OFFICER SCAN - LABS 05/03/2024 2:43 PM CHIEF CLINICAL OFFICER SCAN - LABS 04/14/2024 4:53 PM CHIEF CLINICAL OFFICER POCT GLUCOSE DEVICE Routine 04/13/2024 4 :15 PM CHIEF CLINICAL OFFICER SCAN - LABS 04/13/2024 6:57 AM CHIEF CLINICAL OFFICER SCAN - LABS 04/11/2024 11:45 AM CHIEF CLINICAL OFFICER EGFR Routine 01/12/2024 8:02 AM CDT Endometrial cancer (CMS/HCC) (HCC) COLONOSCOPY 10/23/2023 8:19 AM CDT HEMOGLOBIN A1C Routine 09/17/2023 10:35 AM CDT Preoperative testing Diabetes mellitus without complication (CMS/HCC) (HCC) from Last 3 Months or Most Recently Relevant to Health Maintenance Results * SCAN - LABS (06/15/2024 5:37 PM CHIEF CLINICAL OFFICER) us Rachael Moncada RN Edited Resul t - Final * SCAN - LABS (06/13/2024 11:26 AM CHIEF CLINICAL OFFICER) us Rachael Moncada RN Final Result * SCAN - LABS (05/25/2024 11:12 AM CHIEF CLINICAL OFFICER) us Rachael Moncada RN Edited Resul t - Final * SCAN - LABS (05/23/2024 6:14 PM CHIEF CLINICAL OFFICER) Result Rene Moncada RN Final Result * SCAN - LABS (05/05/2024 8:03 AM CHIEF CLINICAL OFFICER) us Rachael Moncada RN Final Result * SCAN - LABS (05/03/2024 2:43 PM CHIEF CLINICAL OFFICER) Result [facility] Rachael Moncada RN Final Result * SCAN - LABS (04/14/2024 4:53 PM CHIEF CLINICAL OFFICER) Result [facility] Rachael Moncada RN Edited Resul t - Final * POCT glucose (04/13/2024 4:15 PM CHIEF CLINICAL OFFICER) Pathologist [facility] Glucose, POC 182 70 - 199 mg/dL Blood 04/13/2024 4:15 PM CHIEF CLINICAL OFFICER 04/13/2024 4:15 PM CHIEF CLINICAL OFFICER Result [facility] Quynh Mims MD LAB POCT ORDERABLES - DEVICE Final Result [facility] Department [place] [address] * SCAN - LABS (04/13/2024 6:57 AM CHIEF CLINICAL OFFICER) Result [facility] Rachael Moncada RN Final Result * SCAN - LABS (04/11/2024 11:45 AM CHIEF CLINICAL OFFICER) Result Rene Rachael Moncada RN Final Result * eGFR (01/12/2024 8:02 AM CDT) [facility] eGFR >90 >=60 mL/min/1. 73 m2 Comment: [...] MD LAB BLOOD ORDERABLES Final Result [facility] [address] Department [place] [address] * Colonoscopy (10/23/2023 8:19 AM CDT) Anatomical Region Laterality Modality Other Narrative Procedure Note Winston Aaron MD - 10/23/2023 8:19 AM CDT ENDOSCOPY LAB Patient Name: Arti Corrigan Procedure Date: 10/23/2023 8:19 AM Admit Type: Outpatient Room: [facility] Date of : 1955 Instrument Name: [...] NP LAB BLOOD ORDERABLES Final Re sult [facility] [address] [place] [address] from Last 3 Months or Most Recently Relevant to Health Maintenance Insurance [facility] MEDICARE [facility] Address: [id number] [place] [phone] [employer] MEDICARE [place] Advance Directives For more information, please contact: [phone] * Full Code (Latest Code Status on File) Date Activated Date Inactivated Comments 10/23/2023 7:57 AM 10/23/2023 1:38 PM Care Teams Tier Lift Operator Relationship Specialty Start Date End Date Andrea Chandler MD PCP - General Internal Medicine 03/31/23
--- OUTSIDE RECORDS SUMMARY | 2024-07-04 13:21 | XMS_ITS | Clinical Summary ---
Author Organization [facility] Address [address] [address] Phone Care Team Providers Care Snuff Drier Name Role Phone ShawnEmery squires Marian GRIFFIN Primary Care Provider [phone] Allergies No known active allergies Medications metFORMIN [...] on file Legal Sex Female 10:16 AM WAITSTAFF Gender Identity Not on file Sexual Orientation Not on file Last Filed Vital Signs Vital Sign Reading Time Taken Comments Blood Pressure 144/72 01/26/2020 2:53 PM CDT Pulse 84 01/26/2020 2:53 PM CDT Temperature 36.8 C (98.2 F) 01/26/2020 2:53 PM CDT Respiratory Rate 18 01/26/2020 2:53 PM CDT [...] CHEST W/O CONTRAST Routine 04/13/2019 9:22 AM WAITSTAFF Lung nodule < 6cm on CT from Last 3 Months or Most Recently Relevant to Health Maintenance Results * CT CHEST W/O CONTRAST (04/13/2019 9:22 AM WAITSTAFF) Anatomical Region Laterality Modality Chest N/A Computed Tomogra phy 04/13/2019 9:40 AM WAITSTAFF Impressions 04/13/2019 9:43 AM WAITSTAFF IMPRESSION: 1. A 5 mm ground-glass nodule [...] 3. Other incidental findings as described above. Narrative 04/13/2019 9:43 AM WAITSTAFF EXAM DESCRIPTION: CT CHEST W/O CONTRAST REASON [...] Rojelio Yun M.D. RL: DEVIN Report ID: [id number] Reading Location: [id number] Procedure Note Rojelio Yun MD - 04/13/2019 [...] 04/13/2019 9:40 AM - Electronically signed by Rojleio Yun M.D. RL: DEVIN Report ID: [id number] Reading Location: [id number] IMPRESSION: 1. A 5 mm ground-glass nodule [...] Health Maintenance Insurance MEDICAID BL[place] Care Teams Snuff Drier Relationship Specialty Start Date End Date Emery Higgins DO [address] [place] [address] PCP - General Internal Medicine 07/13/18
[2024-07-06 06:53] LABS: CA-125 119 U/mL (<35)
[2024-07-06 08:54] LABS: Thyroid Peroxidase Antibodies 54 IU/mL (<9)
== END 2024-07-04 11:23 | disposition home or self-care (01) ==
LOC: CHSLAB 11:26
PROVIDERS: PCP Internal Medicine
DX: C54.1 Malignant neoplasm of endometrium (principal); E11.9 Type 2 diabetes mellitus without complications; E03.9 Hypothyroidism, unspecified
CPT/HCPCS: 36415; 80053; 83735; 84439; 84443; 85025; 86304; 86376

== ENCOUNTER 2024-07-15 09:27 | Outpatient (CLI) | payer MEDICARE, MEDICAID, SELFPAY ==
--- NOTE | ~2024-07-15 | MMUS_ITS ---
EXAMINATION: MM diagnostic christina BI w juan, US breast RT limited HISTORY: 69-year-old woman with a history of stage IV endometrial carcinoma, diagnosed in March 30 currently on neoadjuvant chemotherapy presents with a palpable abnormality within the retroareolar position of the right breast for diagnostic evaluation. TECHNIQUE: Additional 3-D tomosynthesis images of the right breast were performed and synthetic 2-D i mages were generated. CAD analysis was submitted and interpreted. High resolution limited right breas t and right axillary ultrasound was performed. COMPARISON: Examination was compared with multiple prior studies performed most recently on 02/10/2023 and dating back to 01/30/2022. BREAST PARENCHYMAL COMPOSITION: Not Dense. There are scattered areas of fibroglandular density. FINDINGS: MAMMOGRAPHIC FINDINGS: Punctate calcifications are identified bilaterally, stable and benign in appearance. Vascular calcifications are also noted. Within the area of palpable concern (the retroareolar/periareolar position of the right breast) is an asymmetric lobular dense focus measuring nearly 8 cm in the craniocaudal dimension and approximately 3 cm in the anterior to posterior dimension. Incompletely visualized on the current examination is a morphologically suspicious lymph node within the right axilla for which further evaluation with ultrasound will be performed. ULTRASOUND: Within the periareolar position of the right breast is an irregular shadowing focus of mixed echogeni city, demonstrating diffuse vascularity for which ultrasound-guided biopsy is recommended. Submitted images from the cine interrogation of the right axilla was without sonographic abnormality. Live interrogation at the time of biopsy is recommended. IMPRESSION: Findings within the periareolar position of the right breast corresponding to the area of palpable an d imaging concern for which ultrasound-guided biopsy is recommended. BI-RADS category 4, suspicious findings. These findings and recommendations were discussed with the patient at the time of examination and int erpretation. Reviewed, dictated and finalized at location A. ACTOR MACHINE OPERATOR IMPRESSION: Findings within the periareolar position of the right breast corresponding to t he area of palpable and imaging concern for which ultrasound-guided biopsy is r ecommended. BI-RADS category 4, suspicious findings. These findings and recommendations were discussed with the patient at the time of examination and interpretation.
--- OUTSIDE RECORDS SUMMARY | 2024-07-15 10:01 | XMS_ITS ---
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 Pembrolizumab 21 Day Cycles - CARDIOLOGY TECHNOLOGIST (Carbo Completed)* Plan Start Date:04/30/2023 Plan Provider:Quynh Mims MD Linked Problems Endometrial cancer (HCC) Treatment Medications Current Day (Day 1 , Cycle 21 - Planned for 07/27/2024) Next Day (Day 1, Cycle 22 - Planned for 08/17/2024) CARBOplatin (PARAPLATIN) IVP B in 250 mL [...] 1 mGy 1 mGy 0 mGy DLP 1,551 mGycm 1,551 mGycm 0 mGycm
--- OUTSIDE RECORDS SUMMARY | 2024-07-15 10:01 | XMS_ITS | Clinical Summary ---
Author Organization [facility] Address [facility] [place] [address] Care Team Providers Care Sheriff Name Role Phone Unavailable Primary Care Provider Unavailabl e Social History Tobacco Use Types Packs/Day Years Used Date Smoking Tobacco: Never Assessed Comments Unknown Sex and Gender Information Value Date Recorded Sex Assigned at Not on file Legal Sex Female 5:43 PM DROP FORGER Gender Identity Not on file Sexual Orientation [...]
--- OUTSIDE RECORDS SUMMARY | 2024-07-15 10:01 | XMS_ITS | Clinical Summary ---
Author Organization [facility] [place] [address] Address [address] [place] [address] Care Team Providers Care Student Services Representative Name Role Phone Andrea Chandler MD Primary Care Provider [phone] Allergies Active Allergy Reactions Criticality Noted Date [...] total) by mouth every evening 3 Active atorvastatin (LIPITOR) 10 mg tabletIndicati [...] (ZyPREXA) 5 mg tabletIndicati ons:Endometria l cancer (HCC) Take 1 tablet (5 mg total) by mouth daily Take on Days 2, 3, and 4 of each cycle. 9 tablet 1 12/25/202 3 Active LORazepam (ATIVAN) 0.5 mg tabletIndicati ons:Endometria l cancer (HCC) Take 1 tablet (0.5 mg total) by mouth every 6 (six) hours as needed (nausea, vomiting) May begin on day 5 if needed. 30 tablet 3 3 Active Additional Information Patient not taking.Informant: Self, Reported on 06/15/2024 ondansetron (ZOFRAN) 8 mg tabletIndicati ons:Endometria l cancer (HCC) Take 1 tablet (8 mg total) [...] 1 capsule (75 mg total) by mouth registered diet technician before breakfast Active loratadine 10 mg capsuleIndicat [...] not taking.Reported on 06/15/2024 polyethylene glycol (GoLYTELY) 236-22.74-6.74 -5.86 gram solution [...] skin daily Active triamcinolone (KENALOG) 0.1 % ointmentIndica tions:Tinea [...] BY ORAL ROUTE ONCE DAILY [address] (CYMBALTA) 30 mg capsuleIndicat ions:Endometri al cancer (HCC) Take 1 capsule (30 mg total) by mouth daily 30 capsule 11 5 026 Active megestroL (MEGACE) 40 mg tabletIndicati ons:Endometria l Carcinoma Take 1 tablet (40 mg total) by mouth 2 (two) times a day 60 tablet 5 5 Active famotidine (PEPCID) 20 mg tabletIndicati ons:Heartburn, gastroesophage al reflux disease Take 1 tablet (20 mg total) by mouth daily 30 tablet 4 5 Active omeprazole 20 mg tablet,delayed release (DR/EC)Indicat ions:Treatment of Non-Bleeding Gastric Disorder Take 1 tablet (20 mg total) by mouth every morning 025 Discontin ued(Thera py completed ) megestroL (MEGACE) 40 mg tablet Take 1 tablet (40 mg total) by mouth 2 (two) times a day 60 tablet 5 4 025 Discontin ued(Reord er) Active Problems Problem Noted Date Diagnosed Date [...] Encounters Date Type Department Care Team Description 07/06/2024 2:00 PM RESISTOR TESTER [facility] Gy[facility] ([facility]) [address] [place] [address] Endometrial cancer (HCC) (Primary Dx) 07/06/2024 1:00 PM RESISTOR TESTER Office Visit [facility] Obstetrics and Gynecology [address] [place] [address] Advanced Medicine 13th [place] [address] Quynh Mims MD Endometrial cancer (HCC) 07/06/2024 9:39 AM RESISTOR TESTER - 07/06/2024 11:59 PM RESISTOR TESTER Hospital Encounter [facility]iology [place] [facility] ([facility]) [address] [place] [address] Endometrial cancer (HCC); Chemotherapy management, encounter for Discharge Disposition: Discharge to home or self care 07/06/[address] [facility] Obstetrics and Gynecology [address] [place] [address] Advanced Medicine 13th [place] [address] Rachael Moncada RN 07/06/2024 Orders Only [facility] Rachael Moncada, RN Abnormal breast finding (Primary Dx); Endometrial cancer (HCC); Frequent falls; Balance problem 07/04/2024 Orders Only [facility] Rachael Moncada RN 06/15/2024 2:00 PM RESISTOR TESTER [facility] Gynec[facility] ([facility]) [address] [place] [address] Endometrial cancer (HCC) (Primary Dx) 06/15/2024 1:00 PM RESISTOR TESTER Office Visit [facility] Obstetrics and Gynecology [address] [place] [address] Medicine 13th [place] [address] Quynh Mims MD Endometrial cancer (HCC) 06/15/2024 Orders Only [facility] Rachael Moncada RN 06/13/2024 Orders Only [facility] Rachael Moncada RN Endometrial cancer (HCC) (Primary Dx) 05/25/2024 10:00 AM RESISTOR TESTER [facility] Gynecologic [facility] ([facility]) [address] [place] [address] Endometrial cancer (HCC) (Primary Dx) 05/25/2024 9:15 AM RESISTOR TESTER Office Visit [facility] Obstetrics and Gynecology [address] [place] [address] 13th [place] [address] Quynh Mims MD Endometrial cancer (HCC) 05/25/2024 Orders Only [facility] Rachael Rm RN Endometrial cancer (HCC) (Primary Dx); Chemotherapy management, encounter for 05/23/2024 Orders Only Rachael Sena RN Endometrial cancer (HCC) (Primary Dx) 05/06/2024 3:00 PM RESISTOR TESTER Infusion [facility] Gynecologic Oncology [facility] ([facility]) [address] [place] [address] Endometrial cancer (HCC) (Primary Dx) 05/05/2024 Orders Only Rachael Sena RN Endometrial cancer (HCC) (Primary Dx) 05/03/2024 Orders Only [facility] Rachael Moncada RN from Last 3 Months [...] disease) (HC C) HLD (hyperlipidemia) Endometrial cancer (HCC) Renal cyst Tobacco use GERD (gastroesophageal [...] on file Legal Sex Female 3:27 AM RESISTOR TESTER Gender Identity Not on file Sexual Orientation Not on file Obstetrics History Para Term AB IAB SAB Ectopic Multiple Livin g Live Births 1 1 1 Date Outcome GA Total Labor Labor/2nd/3rd Weight Sex Type Anes PTL Perla A1 A5 Name Clin Para Comments x1 Last Filed Vital Signs Vital Sign Reading Time Taken Comments Blood Pressure 130/78 07/06/2024 1:02 PM RESISTOR TESTER Pulse 80 07/06/2024 1:02 PM RESISTOR TESTER Temperature 36.9 C (98.4 F) 07/06/2024 1:02 PM RESISTOR TESTER Respiratory Rate 16 07/06/2024 1:02 PM RESISTOR TESTER Oxygen Saturation 98% 07/06/2024 1:02 PM RESISTOR TESTER Inhaled Oxygen Concentration - - Weight 84.2 kg (185 lb 11.2 oz) 07/06/2024 1:02 PM RESISTOR TESTER Height 157.5 cm (5' 2.01 ) 07/06/2024 1:02 PM CS T Body Mass Index 33.96 07/06/2024 1:02 PM RESISTOR TESTER Plan of Treatment Health Maintenance Due Date [...] Screening-Colonoscopy 10/22/20332023 Medical Devices Implanted Type Area Brasswind Instrument Repairer Device Identifier Shelf Expiration Date Model / Serial / Lot [employer] Excela Low Porfile Power Port 8fr 1.6mm 1 Lumen [id number] - [id number] Implanted:Qty: 1 on 05/06/2023 at [facility] [employer] 01/04/2028 [id number] / / [id number] Procedures Procedure Name Priority Date/Time Associated Diagnosis Comments SCAN - LABS 07/06/2024 11:[address] CHEST ABDOMEN PELVIS W CONTRAST Routine 07/06/2024 10:31 AM RESISTOR TESTER Endometrial cancer (HCC) Chemotherapy management, encounter for POCT CREATININE - DEVICE Routine 07/06/2024 10:11 AM RESISTOR TESTER SCAN - LABS 07/04/2024 5:29 PM RESISTOR TESTER SCAN - LABS 06/15/2024 5:37 PM RESISTOR TESTER SCAN - LABS 06/13/2024 11:26 AM RESISTOR TESTER SCAN - LABS 05/25/2024 11:12 AM RESISTOR TESTER SCAN - LABS 05/23/2024 6:14 PM RESISTOR TESTER SCAN - LABS 05/05/2024 8:03 AM RESISTOR TESTER SCAN - LABS 05/03/2024 2:43 PM RESISTOR TESTER EGFR Routine 01/12/2024 8:02 AM CDT Endometrial cancer (HCC) COLONOSCOPY 10/23/2023 8:19 AM CDT HEMOGLOBIN A1C Routine 09/17/2023 10:35 AM CDT Preoperative testing Diabetes mellitus without complication (HCC) from Last 3 Months or Most Recently Relevant to Health Maintenance Results * SCAN - LABS (07/06/2024 11:14 AM RESISTOR TESTER) us Rachael Monacda RN Edited Resul t - Final * CT Chest Abdomen Pelvis W Contrast (07/06/2024 10:31 AM RESISTOR TESTER) Anatomical Region Laterality Modality Body N/A Computed Tomogra phy 07/06/2024 11:5 3 AM RESISTOR TESTER Impressions 07/06/2024 11:53 AM RESISTOR TESTER 1. Increased thickness of the endometrial cavity. This could represent worsening of the patient's known endometrial cancer, but MRI or ultrasound will be more ideal for assessment. Aside from this, no progressive disease in the chest abdomen or pelvis. 2. Soft tissue thickening associated with the right nipple, not well seen on prior studies. This is suspicious for underlying neoplasm either of the breast or overlying skin. Recommend correlation with with direct physical exam. Electronically signed by: Bunny Jarvis M.D. Narrative 07/06/2024 11:53 AM RESISTOR TESTER EXAMINATION: Computed tomography of the chest, abdomen and pelvis with intravenous contrast HISTORY: Endometrial cancer restaging TECHNIQUE: Transaxial computed tomographic images of the chest, abdomen and pelvis were obtained with intravenous contrast according to the standard protocol after the uneventful administration of 69 mL Opti-Ray 350 intravenous contrast. COMPARISON: 03/23/2024 FINDINGS: There is no pleural effusion, pneumothorax, or consolidation. No suspicious pulmonary nodule or mass. Central airways appear widely patent. Right internal jugular port catheter terminates in the superior vena cava. No axillary, supraclavicular, mediastinal, or hilar lymphadenopathy. There is soft tissue nodularity associated with the right nipple on series 2 image 74 measuring 6.6 x 1.8 cm. This was not well seen on the prior study, but was incompletely imaged. No focal liver lesion is identified. Mild central biliary duct dilatation is probably related to reservoir effect from cholecystectomy state. There is an unchanged 2.1 cm left adrenal nodule compatible with adenoma on prior noncontrast CT. No focal pancreatic lesion or pancreatic duct dilatation. Normal splenic size. Nondistended stomach and duodenum. Benign-appearing cysts are present within the left kidney. There is no hydronephrosis or suspicious renal lesion on either side. The abdominal aorta is atherosclerotic but nonaneurysmal. No abdominal or pelvic lymphadenopathy. Slightly increased conspicuity of the endometrial canal, measuring 1.3 cm in greatest dimension today compared to 0.8 cm previously. Normal ovaries. No pelvic or inguinal lymphadenopathy. No enlarged retroperitoneal or mesenteric lymph nodes. Decompressed urinary bladder. No intestinal obstruction or focal bowel wall thickening. No peritoneal or omental nodularity. Normal appendix. No free intraperitoneal fluid or free gas. No osseous metastatic disease or fracture. Procedure Note Bunny Jarvis MD - 07/06/2024 EXAMINATION: Computed tomography of the chest, abdomen and pelvis with intravenous contrast HISTORY: Endometrial cancer restaging TECHNIQUE: Transaxial computed tomographic images of the chest, abdomen and pelvis were obtained with intravenous contrast according to the standard protocol after the uneventful administration of 69 mL Opti-Ray 350 intravenous contrast. COMPARISON: 03/23/2024 FINDINGS: There is no pleural effusion, pneumothorax, or consolidation. No suspicious pulmonary nodule or mass. Central airways appear widely patent. Right internal jugular port catheter terminates in the superior vena cava. No axillary, supraclavicular, mediastinal, or hilar lymphadenopathy. There is soft tissue nodularity associated with the right nipple on series 2 image 74 measuring 6.6 x 1.8 cm. This was not well seen on the prior study, but was incompletely imaged. No focal liver lesion is identified. Mild central biliary duct dilatation is probably related to reservoir effect from cholecystectomy state. There is an unchanged 2.1 cm left adrenal nodule compatible with adenoma on prior noncontrast CT. No focal pancreatic lesion or pancreatic duct dilatation. Normal splenic size. Nondistended stomach and duodenum. Benign-appearing cysts are present within the left kidney. There is no hydronephrosis or suspicious renal lesion on either side. The abdominal aorta is atherosclerotic but nonaneurysmal. No abdominal or pelvic lymphadenopathy. Slightly increased conspicuity of the endometrial canal, measuring 1.3 cm in greatest dimension today compared to 0.8 cm previously. Normal ovaries. No pelvic or inguinal lymphadenopathy. No enlarged retroperitoneal or mesenteric lymph nodes. Decompressed urinary bladder. No intestinal obstruction or focal bowel wall thickening. No peritoneal or omental nodularity. Normal appendix. No free intraperitoneal fluid or free gas. No osseous metastatic disease or fracture. IMPRESSION: 1. Increased thickness of the endometrial cavity. This could represent worsening of the patient's known endometrial cancer, but MRI or ultrasound will be more ideal for assessment. Aside from this, no progressive disease in the chest abdomen or pelvis. 2. Soft tissue thickening associated with the right nipple, not well seen on prior studies. This is suspicious for underlying neoplasm either of the breast or overlying skin. Recommend correlation with with direct physical exam. Electronically signed by: Bunny Jarvis M.D. us Quynh Mims MD IMG CT PROCEDURES Fi nal Result * POCT creatinine (07/06/2024 10:11 AM RESISTOR TESTER) Creatinine POC 1.1 0.6 - 1.1 mg/dL Blood 07/06/2024 10:1 1 AM RESISTOR TESTER 07/06/2024 10:11 AM RESISTOR TESTER us Quynh Mims MD LAB POCT ORDERABLES - DEVICE Final Result [facility] Department [place] [address] * SCAN - LABS (07/04/2024 5:29 PM RESISTOR TESTER) Result Rene Moncada RN Edited Resul t - Final * SCAN - LABS (06/15/2024 5:37 PM RESISTOR TESTER) Result Rene Moncada RN Edited Resul t - Final * SCAN - LABS (06/13/2024 11:26 AM RESISTOR TESTER) Result Rene Moncada RN Final Result * SCAN - LABS (05/25/2024 11:12 AM RESISTOR TESTER) Result Rene Moncada RN Edited Resul t - Final * SCAN - LABS (05/23/2024 6:14 PM RESISTOR TESTER) Result Rene Moncada RN Final Result * SCAN - LABS (05/05/2024 8:03 AM RESISTOR TESTER) Result Rene Moncada RN Final Result * SCAN - LABS (05/03/2024 2:43 PM RESISTOR TESTER) Result Rene Moncada RN Final Result * eGFR (01/12/2024 8:02 AM CDT) eGFR [...] MD LAB BLOOD ORDERABLES Final Result [facility] [address] Department [place] [address] * Colonoscopy (10/23/2023 8:19 AM CDT) Anatomical Region Laterality Modality Other Narrative Procedure Note Winston Aaron MD - 10/23/2023 8:19 AM CDT ENDOSCOPY LAB Patient Name: Arti Corrigan Procedure Date: 10/23/2023 8:19 AM Admit Type: Outpatient Room: [facility] Date of : 1955 Instrument Name: [...] In: 8:30:18 AM Scope Out: 8:43:05 AM Wniston Aaron MD ENDOSCOPY PROCEDURES Final Result * [...] 5 AM CDT 09/17/2023 1:57 PM CDT aMranda Winslow NP LAB BLOOD ORDERABLES Final Re sult [facility] Department [place] [address] from Last 3 Months or Most Recently Relevant to Health Maintenance Insurance [facility] MEDICARE [place] Advance Directives For more information, please contact: [phone] * Full Code (Latest Code Status on File) Date Activated Date Inactivated Comments 10/23/2023 7:57 AM 10/23/2023 1:38 PM Care Teams Student Services Representative Relationship Specialty Start Date End Date Andrea Chandler MD PCP - General Internal Medicine 03/31/23
--- OUTSIDE RECORDS SUMMARY | 2024-07-15 10:01 | XMS_ITS | Referral Summary ---
Author Organization [facility] [address] Address [address] [place] [address] Care Team Providers Care [employer] Combat Skills Name Role Phone Andrea Chandler MD Primary Care Provider [phone] Encounters Date Type Department Care Team Description 07/06/2024 Documentation [facility] Obstetrics and Gynecology [address] [place] [address] Advanced Medicine 13th [place] [address] Rachael Moncada RN 07/06/2024 Orders Only [facility] Rachael Moncada RN Abnormal breast finding (Primary Dx); Endometrial cancer (HCC); Frequent falls; Balance problem 07/06/2024 2:[address] OFFICE ASSISTANT [facility] [address] [place] [address] Endometrial cancer (HCC) (Primary Dx) 07/06/2024 1:[address] OFFICE ASSISTANT Office Visit [facility] Obstetrics and Gynecology [address] [place] [address] Advanced Medicine 13th [place] [address] Quynh Mims MD Endometrial cancer (HCC) 07/06/2024 9:[address] OFFICE ASSISTANT - 07/06/2024 11:[address] OFFICE ASSISTANT Hospital Encounter [facility]) [address] [place] [address] Endometrial cancer (HCC); Chemotherapy management, encounter for Discharge Disposition: Discharge to home or self care 07/04/2024 Orders Only [facility] Rachael Moncada RN 06/15/2024 Orders Only Rachael Sena RN 06/15/2024 2:[address] OFFICE ASSISTANT [facility] ([facility]) [address] [place] [address] Endometrial cancer (HCC) (Primary Dx) 06/15/2024 1:[address] OFFICE ASSISTANT Office Visit [facility] Obstetrics and Gynecology [address] [place] [address] [facility] 13th [place] [address] Quynh Mims MD Endometrial cancer (HCC) 06/13/2024 Orders Only Rachael Sena RN Endometrial cancer (HCC) (Primary Dx) 05/25/2024 Orders Only Rachael Sena RN Endometrial cancer (HCC) (Primary Dx); Chemotherapy management, encounter for 05/25/2024 9:[address] OFFICE ASSISTANT Office Visit [facility] Obstetrics and Gynecology [address] [place] [address] 13th [place] [address] Quynh Mims MD Endometrial cancer (HCC) 05/25/2024 10:[address] OFFICE ASSISTANT [facility] ([facility]) [address] [place] [address] Endometrial cancer (HCC) (Primary Dx) 05/23/2024 Orders Only Rachael Sena RN Endometrial cancer (HCC) (Primary Dx) 05/06/2024 3:[address] OFFICE ASSISTANT 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 Active loratadine 10 mg capsuleIndicat [...] on file Legal Sex Female 3:[address] OFFICE ASSISTANT Gender Identity Not on file Sexual Orientation Not on file Last Filed Vital Signs Vital Sign Reading Time Taken Comments Blood Pressure 130/78 07/06/2024 1:[address] OFFICE ASSISTANT Pulse 80 07/06/2024 1:[address] OFFICE ASSISTANT Temperature 36.9 C (98.4 F) 07/06/2024 1:[address] OFFICE ASSISTANT Respiratory Rate 16 07/06/2024 1:[address] OFFICE ASSISTANT Oxygen Saturation 98% 07/06/2024 1:[address] OFFICE ASSISTANT Inhaled Oxygen Concentration - - Weight 84.2 kg (185 lb 11.2 oz) 07/06/2024 1:[address] OFFICE ASSISTANT Height 157.5 cm (5' 2.01 ) 07/06/2024 1:02 PM CS T Body Mass Index 33.96 07/06/2024 1:[address] OFFICE ASSISTANT Plan of Treatment Not on file Medical Devices Implanted Type Area Order Worker Device Identifier Shelf Expiration Date Model / Serial / Lot [employer] Excela Low Porfile Power Port 8fr 1.6mm 1 Lumen [id number] - [id number] Implanted:Qty: 1 on 05/06/2023 at [facility] [employer] 01/04/2028 [id number] / / [id number] Procedures Procedure Name Priority Date/Time Associated Diagnosis Comments SCAN - LABS 07/06/2024 11:[address] CT CHEST ABDOMEN PELVIS W CONTRAST Routine 07/06/2024 10:[address] OFFICE ASSISTANT Endometrial cancer (HCC) Chemotherapy management, encounter for POCT CREATININE - DEVICE Routine 07/06/2024 10:[address] OFFICE ASSISTANT SCAN - LABS 07/04/2024 5:[address] OFFICE ASSISTANT SCAN - LABS 06/15/2024 5:[address] OFFICE ASSISTANT SCAN - LABS 06/13/2024 11:[address] OFFICE ASSISTANT SCAN - LABS 05/25/2024 11:[address] OFFICE ASSISTANT SCAN - LABS 05/23/2024 6:[address] OFFICE ASSISTANT SCAN - LABS 05/05/2024 8:[address] OFFICE ASSISTANT SCAN - LABS 05/03/2024 2:[address] OFFICE ASSISTANT EGFR Routine 01/12/2024 8:02 AM CDT Endometrial cancer (HCC) COLONOSCOPY 10/23/2023 8:19 AM CDT HEMOGLOBIN A1C Routine 09/17/2023 10:35 AM CDT Preoperative testing Diabetes mellitus without complication (HCC) from Last 3 Months or Most Recently Relevant to Health Maintenance Results * SCAN - LABS (07/06/2024 11:[address] OFFICE ASSISTANT) us Rachael Moncada RN Edited Resul t - Final * CT Chest Abdomen Pelvis W Contrast (07/06/2024 10:[address] OFFICE ASSISTANT) Anatomical Region Laterality Modality Body N/A Computed Tomogra phy 07/06/2024 11:[address] OFFICE ASSISTANT Impressions 07/06/2024 11:[address] OFFICE ASSISTANT 1. Increased thickness of the endometrial cavity. [...] Bunny Jarvis M.D. Narrative 07/06/2024 11:[address] OFFICE ASSISTANT EXAMINATION: Computed tomography of the chest, abdomen [...] Result * POCT creatinine (07/06/2024 10:[address] OFFICE ASSISTANT) Creatinine POC 1.1 0.6 - 1.1 mg/dL Blood 07/06/2024 10:[address] OFFICE ASSISTANT 07/06/2024 10:[address] OFFICE ASSISTANT us Quynh Mims MD LAB POCT ORDERABLES - DEVICE Final Result [facility] Department [place] [address] * SCAN - LABS (07/04/2024 5:[address] OFFICE ASSISTANT) Result Rene Moncada RN Edited Resul t - Final * SCAN - LABS (06/15/2024 5:[address] OFFICE ASSISTANT) Result Rene Moncada RN Edited Resul t - Final * SCAN - LABS (06/13/2024 11:[address] OFFICE ASSISTANT) Result Rene Moncada RN Final Result * SCAN - LABS (05/25/2024 11:[address] OFFICE ASSISTANT) Result Rene Moncada RN Edited Resul t - Final * SCAN - LABS (05/23/2024 6:[address] OFFICE ASSISTANT) Result Rene Moncada RN Final Result * SCAN - LABS (05/05/2024 8:[address] OFFICE ASSISTANT) Result Rene Moncada RN Final Result * SCAN - LABS (05/03/2024 2:[address] OFFICE ASSISTANT) Result Rene Moncada RN Final Result * [...] MD LAB BLOOD ORDERABLES Final Result [facility] [address] Department [place] [address] * Colonoscopy (10/23/2023 8:19 AM CDT) Anatomical Region Laterality Modality Other Narrative Procedure Note Winston Aaron MD - 10/23/2023 8:19 AM CDT ENDOSCOPY LAB Patient Name: Arti Corrigan Procedure Date: 10/23/2023 8:19 AM Admit Type: Outpatient Room: [facility] Date of : 1955 Instrument Name: [...] LAB BLOOD ORDERABLES Final Re sult [facility] Department [place] [address] from Last 3 Months or Most Recently Relevant to Health Maintenance Insurance [facility] MEDICARE [place] MEDICARE [place] Advance Directives For more information, please contact: [phone] * Full Code (Latest Code Status on File) Date Activated Date Inactivated Comments 10/23/2023 7:57 AM 10/23/2023 1:38 PM Care Teams [employer] Combat Skills Relationship Specialty Start Date End Date Andrea Chandler MD PCP - General Internal Medicine 03/31/23
--- OUTSIDE RECORDS SUMMARY | 2024-07-15 10:01 | XMS_ITS | Encounter Summary ---
Author Organization [facility] Address [address] [place] [address] Phone Care Team Providers Care Wharf Tally Clerk Name Role Phone Emery Higgins Primary Care Provider [phone] Encounter Details Date Type Department Care Team (Late st Contact Info) Description 07/26/2019 Telephone [facility] On[facility] Services [address] [place] [phone] Marcelo Avendano MD [address] [place], [place] [phone] Social History Tobacco Use Types Packs/Day Years [...] on file Legal Sex Female 10:[address] Gender Identity Not on file Sexual Orientation [...] documented as of this encounter Care Teams Wharf Tally Clerk Relationship Specialty Start Date End Date Emery Higgins DO [address] [place] [address] PCP - General Internal Medicine 07/13/18 documented as of this encounter
--- OUTSIDE RECORDS SUMMARY | 2024-07-15 10:01 | XMS_ITS | Patient Health Record ---
Author Organization [facility] Address [address] [place] [address] Care Team Providers Care Transportation Worker Name Role Phone Madeline Benton Primary Care Provider Reason For Referral No Information Medications Medication [...] Insured Coverage Start Date Coverage End Date [facility] [address] [place] [address] [id number] Arti Corrigan Self - patient is the insured [employer] [place] [address] [place] [address] [id number] Arti Corrigan Self - patient is the insured Medical (General) History Medical History History ICD Code high blood pressure diabetes Surgical History Surgery Date(Month/Year) tonsils removed galbladder removed thumb
--- OUTSIDE RECORDS SUMMARY | 2024-07-15 10:01 | XMS_ITS | Encounter Summary ---
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
--- OUTSIDE RECORDS SUMMARY | 2024-07-15 10:01 | XMS_ITS | Clinical Summary ---
Author Organization [facility] Address [address] [address] Phone Care Team Providers Care Basketball Player Name Role Phone ShawnEmery squires Marian GRIFFIN Primary Care Provider [phone] Allergies No known active allergies Medications metFORMIN [...] on file Legal Sex Female 10:16 AM OPERATING SYSTEMS SPECIALIST Gender Identity Not on file Sexual Orientation [...] Health Maintenance Due Date Last Done Comments Hepatitis C Virus (HCV) Screening 1955 TdaP Immunization 1955 Cologuard 2007 Immunochemical Fecal Occult Blood 2007 Pneumococcal Immunization (5 0+ years) (1 [...] CHEST W/O CONTRAST Routine 04/13/2019 9:22 AM OPERATING SYSTEMS SPECIALIST Lung nodule < 6cm on CT from Last 3 Months or Most Recently Relevant to Health Maintenance Results * CT CHEST W/O CONTRAST (04/13/2019 9:22 AM OPERATING SYSTEMS SPECIALIST) Anatomical Region Laterality Modality Chest N/A Computed Tomogra phy 04/13/2019 9:40 AM OPERATING SYSTEMS SPECIALIST Impressions 04/13/2019 9:43 AM OPERATING SYSTEMS SPECIALIST IMPRESSION: 1. A 5 mm ground-glass nodule [...] as described above. Narrative 04/13/2019 9:43 AM OPERATING SYSTEMS SPECIALIST EXAM DESCRIPTION: CT CHEST W/O CONTRAST REASON [...] Rojelio Yun M.D. RL: DEVIN Report ID: [id number] Reading Location: [id number] Procedure Note Rojelio Yun MD - 04/13/2019 [...] Rojelio Yun M.D. RL: DEVIN Report ID: [id number] Reading Location: [id number] IMPRESSION: 1. A 5 mm ground-glass nodule [...] Insurance MEDICAID BLUE [place]OSS [place] [id number] Care Teams Basketball Player Relationship Specialty Start Date End Date Emery Higgins DO [address] [place] [address] PCP - General Internal Medicine 07/13/18
== END 2024-07-15 09:28 | disposition home or self-care (01) ==
LOC: CHSIMG 09:29
PROVIDERS: PCP Internal Medicine
DX: R92.8 Other abnormal and inconclusive findings on diagnostic imaging of breast (principal)
CPT/HCPCS: 76642; 77062; 77066; G0279

== ENCOUNTER 2024-07-25 10:35 | Outpatient (CLI) | payer MEDICARE, MEDICAID, SELFPAY ==
[2024-07-25 10:50] LABS: Basophils Absolute Auto 0.08 K/mm3 (0.00-0.10); Basophils Percent Auto 0.7 % (0.0-1.0); Eosinophils Absolute Auto 0.58 K/mm3 (0.02-0.50); Eosinophils Percent Auto 5.1 % (1.0-6.0); Hematocrit 37.4 % (35.0-42.0); Hemoglobin 11.6 g/dL (11.7-13.8); Immature Granulocyte Absolute 0.09 K/mm3 (0.00-0.00); Immature Granulocyte Percent A 0.8 % (0.0-0.0); Lymphocytes Absolute Auto 2.49 K/mm3 (1.10-4.50); Lymphocytes Percent Auto 21.9 % (18.0-42.0); Mean Corpuscular Hemoglobin 28.9 pg (27.0-31.0); Mean Corpuscular Volume 93.3 fL (78.0-102.0); Mean Platelet Volume 11.7 fl (9.2-11.8); Monocytes Absolute Auto 0.75 K/mm3 (0.10-0.90); Monocytes Percent Auto 6.6 % (2.0-11.0); Neutrophils Absolute Auto 7.37 K/mm3 (1.70-7.20); Neutrophils Percent Auto 64.9 % (50.0-70.0); Platelet Count Result 209 K/mm3 (150-420); Red Blood Count 4.01 M/mm3 (4.20-5.40); Red Cell Distribution Width 14.6 % (11.6-14.4); White Blood Count 11.4 K/mm3 (4.8-10.8)
[2024-07-25 11:24] LABS: Alanine Aminotransferase 22 U/L (14-59); Albumin Level 3.7 g/dL (3.4-5.0); Alkaline Phosphatase 79 U/L (46-116); Anion Gap 10 mmol/L (4-12); Aspartate Amino Transferase 17 U/L (15-37); Bilirubin,Total 0.2 mg/dL (0.00-1.00); Blood Urea Nitrogen 26 mg/dL (7-18); Calcium 9.1 mg/dL (8.5-10.1); Carbon Dioxide 25 mmol/L (21-32); Chloride 105 mmol/L (98-108); Estimated Glomerular Filt Rate 45; Glucose 177 mg/dL (70-99); Magnesium 1.6 mg/dL (1.8-2.4); Osmolality Calculated 298 mOsm/kg (285-295); Potassium 3.8 mmol/L (3.5-5.1); Sodium 140 mmol/L (136-145); Thyroid Stimulating Hormone 26.84 uIU/mL (0.36-3.74); Total Protein 6.9 g/dL (6.4-8.2)
[2024-07-25 11:51] LABS: Free T4 Free Thyroxine 0.83 ng/dL (0.76-1.46)
--- OUTSIDE RECORDS SUMMARY | 2024-07-25 12:57 | XMS_ITS | Encounter Summary ---
Author Organization [facility] Address [address] 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
--- OUTSIDE RECORDS SUMMARY | 2024-07-25 12:57 | XMS_ITS | Patient Health Record ---
Author Organization [facility] Address [address] [place] [address] Care Team Providers Care Store Operations Associate Name Role Phone Madeline Benton Primary Care [...] Insured Coverage Start Date Coverage End Date [facility] [address] [place] [address] [id number] Arti Corrigan Self - patient is the insured [employer] [place] [address] [place] [address] [id number] Arti Corrigan Self - patient is the insured Medical (General) History Medical History History ICD Code high blood pressure diabetes Surgical History Surgery Date(Month/Year) tonsils removed galbladder removed thumb
--- OUTSIDE RECORDS SUMMARY | 2024-07-25 12:57 | XMS_ITS | Clinical Summary ---
Author Organization [facility] Address [address] [address] Phone Care Team Providers Care Building Services Technician Name Role Phone ShawnEmery squires Marian GRIFFIN Primary Care Provider +1 [phone] Allergies No known active allergies Medications metFORMIN [...] on file Legal Sex Female 10:16 AM PIPE LINE INSPECTOR Gender Identity Not on file Sexual Orientation [...] CHEST W/O CONTRAST Routine 04/13/2019 9:22 AM PIPE LINE INSPECTOR Lung nodule < 6cm on CT from Last 3 Months or Most Recently Relevant to Health Maintenance Results * CT CHEST W/O CONTRAST (04/13/2019 9:22 AM PIPE LINE INSPECTOR) Anatomical Region Laterality Modality Chest N/A Computed Tomogra phy 04/13/2019 9:40 AM PIPE LINE INSPECTOR Impressions 04/13/2019 9:43 AM PIPE LINE INSPECTOR IMPRESSION: 1. A 5 mm ground-glass nodule [...] as described above. Narrative 04/13/2019 9:43 AM PIPE LINE INSPECTOR EXAM DESCRIPTION: CT CHEST W/O CONTRAST REASON [...] Rojelio Yun M.D. RL: DEVIN Report ID: [id number] Reading Location: [id number] Procedure Note Rojelio Yun MD - 04/13/2019 [...] Rojelio Yun M.D. RL: DEVIN Report ID: [id number] Reading Location: [id number] IMPRESSION: 1. A 5 mm ground-glass nodule [...] Insurance MED[place]ID BL[place] [id number] Care Teams Building Services Technician Relationship Specialty Start Date End Date Emery Higgins DO [address] [place] [address] PCP - General Internal Medicine 07/13/18
--- OUTSIDE RECORDS SUMMARY | 2024-07-25 12:57 | XMS_ITS | Referral Summary ---
Author Organization [facility] [address] Address [address] [place] [address] Care Team Providers Care Bellows Tester Name Role Phone Andrea Chandler MD Primary Care Provider [phone] Encounters Date Type Department Care Team Description 07/22/2024 Results Follow-Up [facility] Obstetrics and Gynecology [address] [facility] Advanced Medicine 13th [place] [address] Rachael Moncada RN 07/21/2024 Telephone [facility] Obstetrics and Gynecology [address] [facility] Advanced [facility] 13th [place] [address] Rachael Moncada RN 07/20/2024 7:42 AM CDT - 07/20/2024 11:59 PM CDT Hospital Encounter [facility] [address] [place] [address] Quynh Mims MD Endometrial cancer (HCC); Frequent falls; Balance problem Discharge Disposition: Discharge to home or self care 07/06/2024 Documentation [facility] Obstetrics and Gynecology [address] [facility] Advanced Medicine 13th [place] [address] Rachael Moncada, NADEGE 07/06/2024 Orders Only [facility] Rachael Moncada, RN Abnormal breast finding (Primary Dx); Endometrial cancer (HCC); Frequent falls; Balance problem 07/06/2024 2:00 PM [facility] Advanced Medicine Gynecologic [facility] ([facility] [address] [place] [address] Endometrial cancer (HCC) (Primary Dx) 07/06/2024 1:00 PM MEDIA MONITOR Office Visit [facility] Obstetrics and Gynecology [address] [place] [address] Advanced Medicine 13th [place] [address] Quynh Mims MD Endometrial cancer (HCC) 07/06/2024 9:39 AM MEDIA MONITOR - 07/06/2024 11:59 PM MEDIA MONITOR Hospital Encounter [facility] ([facility]) [address] [place] [address] Endometrial cancer (HCC); Chemotherapy management, encounter for Discharge Disposition: Discharge to home or self care 07/04/2024 Orders Only [facility] Rachael Moncada RN 06/15/2024 Orders Only Rachael Sena RN 06/15/2024 2:00 PM MEDIA MONITOR [facility] ([facility]) [address] [place] [address] Endometrial cancer (HCC) (Primary Dx) 06/15/2024 1:00 PM MEDIA MONITOR Office Visit [facility] Obstetrics and Gynecology [address] [place] [address] Advanced [facility] 13th [place] [address] Quynh Mims MD Endometrial cancer (HCC) 06/13/2024 Orders Only Rachael Sena RN Endometrial cancer (HCC) (Primary Dx) 05/25/2024 Orders Only Rachael Sena RN Endometrial cancer (HCC) (Primary Dx); Chemotherapy management, encounter for 05/25/2024 9:15 AM MEDIA MONITOR Office Visit [facility] Obstetrics and Gynecology [address] [place] [address] Advanced [facility] 13th [place] [address] Quynh Mims MD Endometrial cancer (HCC) 05/25/2024 10:00 AM MEDIA MONITOR [facility] ([facility]) [address] [place] [address] Endometrial cancer (HCC) (Primary Dx) 05/23/2024 Orders Only [facility] Rachael Rm., RN Endometrial cancer (HCC) (Primary Dx) 05/06/2024 3:00 PM [facility] Gy[facility] ([facility]) [address] [place] [address] Endometrial cancer (HCC) (Primary Dx) 05/05/2024 Orders Only [facility] Rachael Moncada RN Endometrial cancer (HCC) (Primary Dx) 05/03/2024 Orders Only [facility] Rachael Moncada RN from Last 3 [...] 1 capsule (75 mg total) 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 before 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 Active loratadine 10 mg capsuleIndicat [...] morning 025 Discontin ued(Thera py completed ) Active Problems Problem Noted Date Diagnosed Date [...] on file Legal Sex Female 3:27 AM MEDIA MONITOR Gender Identity Not on file Sexual Orientation Not on file Last Filed Vital Signs Vital Sign Reading Time Taken Comments Blood Pressure 130/78 07/06/2024 1:02 PM MEDIA MONITOR Pulse 80 07/06/2024 1:02 PM MEDIA MONITOR Temperature 36.9 C (98.4 F) 07/06/2024 1:02 PM MEDIA MONITOR Respiratory Rate 16 07/06/2024 1:02 PM MEDIA MONITOR Oxygen Saturation 98% 07/06/2024 1:02 PM MEDIA MONITOR Inhaled Oxygen Concentration - - Weight 84.2 kg (185 lb 11.2 oz) 07/06/2024 1:02 PM MEDIA MONITOR Height 157.5 cm (5' 2.01 ) 07/06/2024 1:02 PM CS T Body Mass Index 33.96 07/06/2024 1:02 PM MEDIA MONITOR Plan of Treatment Not on file Medical Devices Implanted Type Area Tile Shader Device Identifier Shelf Expiration Date Model / Serial / Lot [employer] Excela Low Porfile Power Port 8fr 1.6mm 1 Lumen [id number] - [id number] Implanted:Qty: 1 on 05/06/2023 at [facility] [employer] 01/04/2028 [id number] / / [id number] Procedures Procedure Name Priority Date/Time Associated Diagnosis Comments MRI BRAIN W WO CONTRAST Schedule Routine, Read Routine (OP Routine) 07/20/2024 8:33 AM CDT Endometrial cancer (HCC) Frequent falls Balance problem SCAN - LABS 07/06/2024 11:[address] CHEST ABDOMEN PELVIS W CONTRAST Routine 07/06/2024 10:31 AM MEDIA MONITOR Endometrial cancer (HCC) Chemotherapy management, encounter for POCT CREATININE - DEVICE Routine 07/06/2024 10:11 AM MEDIA MONITOR SCAN - LABS 07/04/2024 5:29 PM MEDIA MONITOR SCAN - LABS 06/15/2024 5:37 PM MEDIA MONITOR SCAN - LABS 06/13/2024 11:26 AM MEDIA MONITOR SCAN - LABS 05/25/2024 11:12 AM MEDIA MONITOR SCAN - LABS 05/23/2024 6:14 PM MEDIA MONITOR SCAN - LABS 05/05/2024 8:03 AM MEDIA MONITOR SCAN - LABS 05/03/2024 2:43 PM MEDIA MONITOR EGFR Routine 01/12/2024 8:02 AM CDT Endometrial cancer (HCC) COLONOSCOPY 10/23/2023 8:19 AM CDT HEMOGLOBIN A1C Routine 09/17/2023 10:35 AM CDT Preoperative testing Diabetes mellitus without complication (HCC) from Last 3 Months or Most Recently Relevant to Health Maintenance Results * MRI Brain W WO Contrast (07/20/2024 8:33 AM CDT) Anatomical Region Laterality Modality Head and Neck N/A Magnetic Resonan ce 07/20/2024 10:5 9 AM CDT Impressions 07/20/2024 12:14 PM CDT 1. Apparent peripherally enhancing focus along the medial temporal lobe measuring up to 4 mm in size without associated FLAIR signal abnormality and with likely central CSF signal, which is favored to represent a prominent vascular loop within the CSF rather than true ring-enhancing lesion. Consider follow-up MRI brain in 6 months to re-assess this area. 2. No definite evidence of intracranial metastases. Dictated by: Дмитрий West M.D. The radiology attending physician has personally reviewed this study, and had reviewed and/or edited this written report and agrees with it. Electronically signed by: Rosalidna Galvez M.D. 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 Patient has had frequent falls, concerning for intracranial metastases. TECHNIQUE: Multiplanar multi-weighted MRI of the brain and brainstem was performed without and with intravenous contrast using the general brain protocol. Contrast information: 17 mL Gadoterate Meglumine IV COMPARISON: None Available. FINDINGS: Mild diffuse cerebral atrophy. Bilateral lens replacements. Bilateral mastoid effusions. The scalp and calvarium are normal. The superior sagittal sinus demonstrates normal venous flow. The corpus callosum is normal in shape and signal intensity. The posterior fossa is unremarkable. The pituitary and sella are normal. The brainstem and craniocervical junction are unremarkable. Diffusion weighted images reveal no hyperintensities to suggest acute cerebral infarction. The susceptibility weighted sequences reveal no evidence of acute or chronic hemorrhage. The ventricles are normal in size and position without evidence of hydrocephalus. The paranasal sinuses are normal. Normal flow voids are demonstrated in the carotid arteries and basilar artery. Apparent peripherally enhancing focus along the medial temporal lobe measuring up to 4 mm in size without associated FLAIR signal abnormality and with likely central CSF signal, which is favored to represent a prominent vascular loop rather than true ring-enhancing lesion (Axial Sectra reconstruction images, image 102; Series 51378, image 19; Series 51716, image 71). Mild degree of scattered foci of T2/FLAIR hyperintensities in the periventricular and subcortical white matter, which is a nonspecific finding but may represent chronic small vessel ischemic change. 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 Patient has had frequent falls, concerning for intracranial metastases. TECHNIQUE: Multiplanar multi-weighted MRI of the brain and brainstem was performed without and with intravenous contrast using the general brain protocol. Contrast information: 17 mL Gadoterate Meglumine IV COMPARISON: None Available. FINDINGS: Mild diffuse cerebral atrophy. Bilateral lens replacements. Bilateral mastoid effusions. The scalp and calvarium are normal. The superior sagittal sinus demonstrates normal venous flow. The corpus callosum is normal in shape and signal intensity. The posterior fossa is unremarkable. The pituitary and sella are normal. The brainstem and craniocervical junction are unremarkable. Diffusion weighted images reveal no hyperintensities to suggest acute cerebral infarction. The susceptibility weighted sequences reveal no evidence of acute or chronic hemorrhage. The ventricles are normal in size and position without evidence of hydrocephalus. The paranasal sinuses are normal. Normal flow voids are demonstrated in the carotid arteries and basilar artery. Apparent peripherally enhancing focus along the medial temporal lobe measuring up to 4 mm in size without associated FLAIR signal abnormality and with likely central CSF signal, which is favored to represent a prominent vascular loop rather than true ring-enhancing lesion (Axial Sectra reconstruction images, image 102; Series 79175, image 19; Series 32949, image 71). Mild degree of scattered foci of T2/FLAIR hyperintensities in the periventricular and subcortical white matter, which is a nonspecific finding but may represent chronic small vessel ischemic change. IMPRESSION: 1. Apparent peripherally enhancing focus along the medial temporal lobe measuring up to 4 mm in size without associated FLAIR signal abnormality and with likely central CSF signal, which is favored to represent a prominent vascular loop within the CSF rather than true ring-enhancing lesion. Consider follow-up MRI brain in 6 months to re-assess this area. 2. No definite evidence of intracranial metastases. Dictated by: Дмитрий West M.D. The radiology attending physician has personally reviewed this study, and had reviewed and/or edited this written report and agrees with it. Electronically signed by: Rosalinda Galvez M.D. Quynh Mims MD IM MRI PROCEDURES F inal Result * SCAN - LABS (07/06/2024 11:14 AM MEDIA MONITOR) us Rachael Moncada RN Edited Resul t - Final * CT Chest Abdomen Pelvis W Contrast (07/06/2024 10:31 AM MEDIA MONITOR) Anatomical Region Laterality Modality Body N/A Computed Tomogra phy 07/06/2024 11:5 3 AM MEDIA MONITOR Impressions 07/06/2024 11:53 AM MEDIA MONITOR 1. Increased thickness of the endometrial cavity. [...] Bunny Jarvis M.D. Narrative 07/06/2024 11:53 AM MEDIA MONITOR EXAMINATION: Computed tomography of the chest, abdomen [...] exam. Electronically signed by: Bunny Jarvis M.D. Result Rene Mims MD IMG CT PROCEDURES Fi nal Result * POCT creatinine (07/06/2024 10:11 AM MEDIA MONITOR) Creatinine POC 1.1 0.6 - 1.1 mg/dL Blood 07/06/2024 10:1 1 AM MEDIA MONITOR 07/06/2024 10:11 AM MEDIA MONITOR Result Rene Mims MD LAB POCT ORDERABLES - DEVICE Final Result Performing Organization Address City/State/[facility] [place] Phone Number [facility] Department [place] [address] * SCAN - LABS (07/04/2024 5:29 PM MEDIA MONITOR) Result Rene Moncada RN Edited Resul t - Final * SCAN - LABS (06/15/2024 5:37 PM MEDIA MONITOR) Result Rene Moncada RN Edited Resul t - Final * SCAN - LABS (06/13/2024 11:26 AM MEDIA MONITOR) Result Rene Moncada RN Final Result * SCAN - LABS (05/25/2024 11:12 AM MEDIA MONITOR) Result Rene Moncada RN Edited Resul t - Final * SCAN - LABS (05/23/2024 6:14 PM MEDIA MONITOR) Result Rene Moncada RN Final Result * SCAN - LABS (05/05/2024 8:03 AM MEDIA MONITOR) Rachael Moncada RN Final Result * SCAN - LABS (05/03/2024 2:43 PM MEDIA MONITOR) Rachael Moncada RN Final Result * eGFR [...] Mims MD LAB BLOOD ORDERABLES Final Result [facility] [address] Department [place] [address] * Colonoscopy (10/23/2023 8:19 AM CDT) Anatomical Region Laterality Modality Other Narrative Procedure Note Winston Aaron MD - 10/23/2023 8:19 AM CDT ENDOSCOPY LAB Patient Name: Arti Corrigan Procedure Date: 10/23/2023 8:19 AM Admit Type: Outpatient Room: [facility] Date of : 1955 Instrument [...] % Estimated Average Glucose 157 mg/dL [facility] Comment: The ADA recommends reporting an [...] LAB BLOOD ORDERABLES Final Re sult [facility] Department [place] [address] from Last 3 Months or Most Recently Relevant to Health Maintenance Insurance Kognitio MD MEDICARE [facility] MEDICARE IDPA Advance Directives For more information, please contact: [phone] * Full Code (Latest Code Status on File) Date Activated Date Inactivated Comments 10/23/2023 7:57 AM 10/23/2023 1:38 PM Care Teams Bellows Tester Relationship Specialty Start Date End Date Andrea Chandler MD PCP - General Internal Medicine 03/31/23
--- OUTSIDE RECORDS SUMMARY | 2024-07-25 12:57 | XMS_ITS | Clinical Summary ---
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
--- OUTSIDE RECORDS SUMMARY | 2024-07-25 12:57 | XMS_ITS ---
Author Organization [facility] [address] Address [address] [place] [address] Care Team Providers Care Filenet P8 Developer Name Role Phone Andrea Chandler MD Primary Care Provider [phone] Active Problems Problem Noted Date Diagnosed Date [...] Plans IV Maintenance Therapy Plan* Plan Start Date:07/22/2024 Plan Provider:Quynh Mims MD Linked Problems Endometrial cancer (HCC)Barbara toneal carcinomatosis (HCC) Treatment Medications No medications scheduled. Pembrolizumab 21 Day Cycles - AUTOMOBILE MECHANIC RADIATOR (Carbo Completed)* Plan Start Date:04/30/2023 Plan Provider:Quynh [...] 100 mL Past Treatment and Therapy Plans Line Care Plan Name Start Date Discontinue Date Treatment Medications Discontinue Reason Plan Provider IV Maintenance Therapy Plan 05/12/2023 07/22/2024 No medications scheduled. Therapy Complete Quynh Mims MD Lifetime Dose Tracking * Chemical Lifetime Dose Automatic Entry Manual Entr y Fluoro Time 0.4 minutes 0.4 minutes 0 minutes Air kerma at the reference point (Ka,r) 1 mGy 1 mGy 0 mGy DLP 1,551 mGycm 1,551 mGycm 0 mGycm
--- OUTSIDE RECORDS SUMMARY | 2024-07-25 12:57 | XMS_ITS | Encounter Summary ---
Author Organization [facility] Address [address] [place] [address] Phone Care Team Providers Care Chest Painting And Sealing Supervisor Name Role Phone Andrea Chandler MD Primary Care Provider [phone] Encounter Details Date Type Department Care Team (Late st Contact Info) Description 07/22/2024 Results Follow-Up 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 Thank you!Quynh ----- Message ----- From: Interface, Radiology Results In Sent: 07/20/2024 12:16 PM CDT To: Quynh Mims MD Spoke to pt and discussed above. Reviewed MRI results and need for repeat in 6 mos. Pt agreed and would like to set that up on 07/27 when she sees me in person in office for her pre chemo visit. Inquired about her breast biopsy at local [facility]. Pt reports her PCP (who was going to place the order for the biopsy) wanted to see her first and he put her on antibiotics. At this time she does not think there is a plan for breast biopsy but was not told to return to PCP after completion of anx either. Pt reports the spot of concern on the breast has gotten smaller with taking the anbx. Advised that we will see pt on 07/[address] Mims may want to see the beast area as well and if she feels the biopsy does need to take place, we may take over and send orders for bx. Pt agreed withplan. documented in this encounter Plan of Treatment Not on file documented as of this encounter Visit Diagnoses Not on filedocumented in this encounter Care Teams Chest Painting And Sealing Supervisor Relationship Specialty Start Date End Date Andrea Chandler MD PCP - General Internal Medicine 03/31/23 documented as of this encounter
--- OUTSIDE RECORDS SUMMARY | 2024-07-25 12:57 | XMS_ITS | Encounter Summary ---
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
--- OUTSIDE RECORDS SUMMARY | 2024-07-25 12:58 | XMS_ITS | Clinical Summary ---
Author Organization [facility] [place] [address] Address [address] [place] [address] Care Team Providers Care Regional Driver Name Role Phone Andrea Chandler MD Primary Care Provider [phone] Allergies Active Allergy Reactions Criticality Noted Date [...] 1 capsule (75 mg total) by mouth carry out clerk before breakfast Active loratadine 10 mg capsuleIndicat [...] Department Care Team Description 07/22/2024 Results Follow-Up [facility] Obstetrics and Gynecology [address] [facility] 13th [place] [address] Rachael Moncada RN 07/21/2024 Telephone [facility] Obstetrics and Gynecology [address] [place] [address] Advanced Medicine 13th [place] [address] Rachael Moncada RN 07/20/2024 7:42 AM CDT - 07/20/2024 11:59 PM CDT Hospital Encounter [facility] Radiology [address] [place] [address] Quynh Mims MD Endometrial cancer (HCC); Frequent falls; Balance problem Discharge Disposition: Discharge to home or self care 07/06/2024 2:00 PM BUSINESS LAW TEACHER [facility] ([facility] [address] [place] [address] Endometrial cancer (HCC) (Primary Dx) 07/06/2024 1:00 PM BUSINESS LAW TEACHER Office Visit [facility] Obstetrics and Gynecology [address] [place] [address] Advanced Medicine 13th [place] [address] Quynh Mims MD Endometrial cancer (HCC) 07/06/2024 9:39 AM BUSINESS LAW TEACHER - 07/06/2024 11:59 PM BUSINESS LAW TEACHER Hospital Encounter [facility] Rad[facility] ([facility] [address] [place] [id number] Endometrial cancer (HCC); Chemotherapy management, encounter for Discharge Disposition: Discharge to home or self care 07/06/2024 Documentation [facility] Ob[facility]etrics [facility] Gynecology [address] [place] [address] Advanced Medicine 13th [place] [address] Rachael Moncada RN 07/06/2024 Orders Only Rachael Sena RN Abnormal breast finding (Primary Dx); Endometrial cancer (HCC); Frequent falls; Balance problem 07/04/2024 Orders Only Rachael Sena RN 06/15/2024 2:00 PM BUSINESS LAW TEACHER [facility] ([facility]) [address] [place] [address] Endometrial cancer (HCC) (Primary Dx) 06/15/2024 1:00 PM BUSINESS LAW TEACHER Office Visit [facility] Obstetrics and Gynecology [address] [place] [address] 13th [place] [address] Quynh Mims MD Endometrial cancer (HCC) 06/15/2024 Orders Only Rachael Sena RN 06/13/2024 Orders Only Rachael Sena RN Endometrial cancer (HCC) (Primary Dx) 05/25/2024 10:00 AM BUSINESS LAW TEACHER [facility] ([facility]) [address] [place] [address] Endometrial cancer (HCC) (Primary Dx) 05/25/2024 9:15 AM BUSINESS LAW TEACHER Office Visit [facility] Obstetrics and Gynecology [address] [place] [address] [facility] 13th [place] [address] Quynh Mims MD Endometrial cancer (HCC) 05/25/2024 Orders Only Rachael Sena RN Endometrial cancer (HCC) (Primary Dx); Chemotherapy management, encounter for 05/23/2024 Orders Only Rachael Sena RN Endometrial cancer (HCC) (Primary Dx) 05/06/2024 3:00 PM BUSINESS LAW TEACHER [facility] ([facility]) [address] [place] [address] Endometrial cancer (HCC) (Primary Dx) 05/05/2024 Orders Only [facility] Rachael Moncada RN Endometrial cancer (HCC) (Primary Dx) 05/03/2024 Orders Only [facility] Rachael Moncada RN from Last [...] on file Legal Sex Female 3:27 AM BUSINESS LAW TEACHER Gender Identity Not on file Sexual Orientation Not on file Obstetrics History Para Term AB IAB SAB Ectopic Multiple Livin g Live Births 1 1 1 Date Outcome GA Total Labor Labor/2nd/3rd Weight Sex Type Anes PTL Perla A1 A5 Name Clin Para Comments x1 Last Filed Vital Signs Vital Sign Reading Time Taken Comments Blood Pressure 130/78 07/06/2024 1:02 PM BUSINESS LAW TEACHER Pulse 80 07/06/2024 1:02 PM BUSINESS LAW TEACHER Temperature 36.9 C (98.4 F) 07/06/2024 1:02 PM BUSINESS LAW TEACHER Respiratory Rate 16 07/06/2024 1:02 PM BUSINESS LAW TEACHER Oxygen Saturation 98% 07/06/2024 1:02 PM BUSINESS LAW TEACHER Inhaled Oxygen Concentration - - Weight 84.2 kg (185 lb 11.2 oz) 07/06/2024 1:02 PM BUSINESS LAW TEACHER Height 157.5 cm (5' 2.01 ) 07/06/2024 1:02 PM CS T Body Mass Index 33.96 07/06/2024 1:02 PM BUSINESS LAW TEACHER Plan of Treatment Health Maintenance Due Date [...] Screening-Colonoscopy 10/22/20332023 Medical Devices Implanted Type [employer] Instructor Device Identifier Shelf Expiration Date Model / Serial / Lot [employer] Excela Low Porfile Power Port 8fr 1.6mm 1 Lumen [id number] - [id number] Implanted:Qty: 1 on 05/06/[address] [facility] [employer] 01/04/2028 [id number] / / [id number] Procedures Procedure Name Priority Date/Time Associated Diagnosis Comments MRI BRAIN W WO CONTRAST Schedule Routine, Read Routine (OP Routine) 07/20/2024 8:33 AM CDT Endometrial cancer (HCC) Frequent falls Balance problem SCAN - LABS 07/06/2024 11:14 [address] LAW TE[address] CHEST ABDOMEN PELVIS W CONTRAST Routine 07/06/2024 10:31 AM BUSINESS LAW TEACHER Endometrial cancer (HCC) Chemotherapy management, encounter for POCT CREATININE - DEVICE Routine 07/06/2024 10:11 AM BUSINESS LAW TEACHER SCAN - LABS 07/04/2024 5:29 PM BUSINESS LAW TEACHER SCAN - LABS 06/15/2024 5:37 PM BUSINESS LAW TEACHER SCAN - LABS 06/13/2024 11:26 AM BUSINESS LAW TEACHER SCAN - LABS 05/25/2024 11:12 AM BUSINESS LAW TEACHER SCAN - LABS 05/23/2024 6:14 PM BUSINESS LAW TEACHER SCAN - LABS 05/05/2024 8:03 AM BUSINESS LAW TEACHER SCAN - LABS 05/03/2024 2:43 PM BUSINESS LAW TEACHER EGFR Routine 01/12/2024 8:02 AM CDT Endometrial [...] it. Electronically signed by: Rosalinda Galvez M.D. Narrative 07/20/2024 12:14 PM CDT [...] (Axial Sectra reconstruction images, image 102; Series 53524, image 19; Series 52138, image 71). Mild degree of scattered foci of T2/FLAIR hyperintensities in the periventricular and subcortical white matter, which is a nonspecific finding but may represent chronic small vessel ischemic change. Procedure Note Rosalinda Galvez MD - 07/20/2024 EXAMINATION: Magnetic resonance imaging (MRI) of the [...] (Axial Sectra reconstruction images, image 102; Series 94277, image 19; Series 45493, image 71). Mild degree of scattered foci [...] it. Electronically signed by: Rosalinda Galvez M.D. us Quynh Mims MD IM MRI PROCEDURES F inal Result * SCAN - LABS (07/06/2024 11:14 AM BUSINESS LAW TEACHER) us Rachael Moncada RN Edited Resul t - Final * CT Chest Abdomen Pelvis W Contrast (07/06/2024 10:31 AM BUSINESS LAW TEACHER) Anatomical Region Laterality Modality Body N/A Computed Tomogra phy 07/06/2024 11:5 3 AM BUSINESS LAW TEACHER Impressions 07/06/2024 11:53 AM BUSINESS LAW TEACHER 1. Increased thickness of the endometrial cavity. [...] Bunny Jarvis M.D. Narrative 07/06/2024 11:53 AM BUSINESS LAW TEACHER EXAMINATION: Computed tomography of the chest, abdomen [...] Result * POCT creatinine (07/06/2024 10:11 AM BUSINESS LAW TEACHER) Creatinine POC 1.1 0.6 - 1.1 mg/dL Blood 07/06/2024 10:1 1 AM BUSINESS LAW TEACHER 07/06/2024 10:11 AM BUSINESS LAW TEACHER Result Pending Sale To [facility] us Quynh Mims MD LAB POCT ORDERABLES - DEVICE Final Result Performing Organization Address City/State/ZIP Co pr Phone Number [facility] Department [place] [address] * SCAN - LABS (07/04/2024 5:29 PM BUSINESS LAW TEACHER) us Rachael Moncada RN Edited Resul t - Final * SCAN - LABS (06/15/2024 5:37 PM BUSINESS LAW TEACHER) Result Rene Moncada RN Edited Resul t - Final * SCAN - LABS (06/13/2024 11:26 AM BUSINESS LAW TEACHER) us Rachael Moncada RN Final Result * SCAN - LABS (05/25/2024 11:12 AM BUSINESS LAW TEACHER) Result Rene Moncada RN Edited Resul t - Final * SCAN - LABS (05/23/2024 6:14 PM BUSINESS LAW TEACHER) us Rachael Moncada RN Final Result * SCAN - LABS (05/05/2024 8:03 AM BUSINESS LAW TEACHER) Rachael Moncada RN Final Result * SCAN - LABS (05/03/2024 2:43 PM BUSINESS LAW TEACHER) Rachael Moncada RN Final Result * eGFR [...] MD LAB BLOOD ORDERABLES Final Result [facility] [address] Department [place] [address] * Colonoscopy (10/23/2023 8:19 AM CDT) Anatomical Region Laterality Modality Other Narrative Procedure Note Winston Aaron MD - 10/23/2023 8:19 AM CDT ENDOSCOPY LAB Patient Name: Arti Corrigan Procedure Date: 10/23/2023 8:19 AM Admit Type: Outpatient Room: [facility] Date of : 1955 Instrument Name: [id number] [...] % Estimated Average Glucose 157 mg/dL [facility] Comment: The ADA recommends reporting an [...] ORDERABLES Final Re sult [facility] [place] [address] from Last 3 Months or Most Recently Relevant to Health Maintenance Insurance [employer] [place] [employer] [facility] Address: [address] [address] [place] [address] [facility] MEDICARE [facility] Address: [address] [address] [place] [address] IDPA Advance Directives For more information, please contact: [phone] * Full Code (Latest Code Status on File) Date Activated Date Inactivated Comments 10/23/2023 7:57 AM 10/23/2023 1:38 PM Care Teams Regional Driver Relationship Specialty Start Date End Date Andrea Chandler MD PCP - General Internal Medicine 03/31/23
[2024-07-27 02:07] LABS: CA-125 109 U/mL (<35)
== END 2024-07-25 10:36 | disposition home or self-care (01) ==
LOC: CHSLAB 10:38
PROVIDERS: PCP Internal Medicine
DX: C54.1 Malignant neoplasm of endometrium (principal); E11.9 Type 2 diabetes mellitus without complications; E03.9 Hypothyroidism, unspecified
CPT/HCPCS: 36415; 80053; 83735; 84439; 84443; 85025; 86304

== ENCOUNTER 2024-08-15 12:46 | Outpatient (CLI) | payer MEDICARE, MEDICAID, SELFPAY ==
[2024-08-15 12:59] LABS: Basophils Absolute Auto 0.08 K/mm3 (0.00-0.10); Basophils Percent Auto 0.7 % (0.0-1.0); Eosinophils Absolute Auto 0.55 K/mm3 (0.02-0.50); Eosinophils Percent Auto 4.5 % (1.0-6.0); Hematocrit 27.7 % (35.0-42.0); Immature Granulocyte Absolute 0.13 K/mm3 (0.00-0.00); Immature Granulocyte Percent A 1.1 % (0.0-0.0); Lymphocytes Absolute Auto 2.62 K/mm3 (1.10-4.50); Lymphocytes Percent Auto 21.5 % (18.0-42.0); Mean Corpuscular HGB Conc 32.5 g/dL (32-36); Mean Corpuscular Hemoglobin 29.8 pg (27.0-31.0); Mean Corpuscular Volume 91.7 fL (78.0-102.0); Mean Platelet Volume 10.7 fl (9.2-11.8); Monocytes Absolute Auto 0.75 K/mm3 (0.10-0.90); Monocytes Percent Auto 6.1 % (2.0-11.0); Neutrophils Absolute Auto 8.08 K/mm3 (1.70-7.20); Neutrophils Percent Auto 66.1 % (50.0-70.0); Platelet Count Result 186 K/mm3 (150-420); Red Blood Count 3.02 M/mm3 (4.20-5.40); Red Cell Distribution Width 15.7 % (11.6-14.4); White Blood Count 12.2 K/mm3 (4.8-10.8)
[2024-08-15 13:41] LABS: Alanine Aminotransferase 24 U/L (14-59); Albumin Level 3.3 g/dL (3.4-5.0); Alkaline Phosphatase 71 U/L (46-116); Anion Gap 9 mmol/L (4-12); Aspartate Amino Transferase 16 U/L (15-37); Bilirubin,Total 0.3 mg/dL (0.00-1.00); Blood Urea Nitrogen 29 mg/dL (7-18); Calcium 8.8 mg/dL (8.5-10.1); Carbon Dioxide 27 mmol/L (21-32); Chloride 105 mmol/L (98-108); Estimated Glomerular Filt Rate 51; Glucose 217 mg/dL (70-99); Magnesium 1.9 mg/dL (1.8-2.4); Osmolality Calculated 304 mOsm/kg (285-295); Potassium 4.1 mmol/L (3.5-5.1); Sodium 141 mmol/L (136-145); Thyroid Stimulating Hormone 12.38 uIU/mL (0.36-3.74); Total Protein 6.2 g/dL (6.4-8.2)
[2024-08-15 13:44] LABS: Free T4 Free Thyroxine 0.96 ng/dL (0.76-1.46)
--- OUTSIDE RECORDS SUMMARY | 2024-08-15 14:26 | XMS_ITS | Patient Health Record ---
Author Organization [facility] Address [address] [place] [address] Care Team Providers Care Elevator Service Mechanic Name Role Phone Madeline Benton Primary Care [...] Insured Coverage Start Date Coverage End Date [facility] [address] [place] [id number] Arti Corrigan Self - patient is the insured [employer] [place] [address] [place] [address] [id number] Arti Corrigan Self - patient is the insured Medical (General) History Medical History History ICD Code high blood pressure diabetes Surgical History Surgery Date(Month/Year) tonsils removed galbladder removed thumb
--- OUTSIDE RECORDS SUMMARY | 2024-08-15 14:26 | XMS_ITS | Encounter Summary ---
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
--- OUTSIDE RECORDS SUMMARY | 2024-08-15 14:26 | XMS_ITS | Clinical Summary ---
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
--- OUTSIDE RECORDS SUMMARY | 2024-08-15 14:27 | XMS_ITS | Referral Summary ---
Author Organization [facility] [address] Address [address] [place] [address] Care Team Providers Care Senior Accounts Payable Clerk Name Role Phone Andrea Chandler MD Primary Care Provider [phone] Encounters Date Type Department Care Team Description 08/05/2024 Orders Only OB ONCOLOGY Rachael Moncada, NADEGE 08/02/2024 Orders Only [facility] Obstetrics and Gynecology [address] [place] [address] Advanced Medicine 13th [place] [address] Rachael Moncada, RN Abnormal breast finding (Primary Dx); Abnormal mammogram of right breast; Abscess of right breast 08/02/2024 Orders Only [facility] Obstetrics and Gynecology [address] [place] [address] Advanced Medicine 13th [place] [address] ProviderRosa MD 08/01/2024 1:18 PM CDT - 08/01/2024 11:59 PM CDT Hospital Encounter [facility] - Breast Imaging [address] [facility] Floor 8 [place] [address] Abnormal mammogram Discharge Disposition: Discharge to home or self care 08/01/2024 1:18 PM CDT - 08/01/2024 11:59 PM CDT Hospital Encounter [facility] - Breast Imaging [address] [facility] [address] [place] [address] Endometrial cancer (HCC); Abnormal breast finding Discharge Disposition: Discharge to home or self care 07/28/2024 Telephone [facility] Breast [facility] [address] [place] [address] Sepideh Hernandez RN 07/27/2024 Telephone [facility] Breast [facility] ([facility]) [address] [place] [address] Enma Ortiz, NADEGE Appointment (Scheduling of breast biopsy) 07/27/2024 Telephone [facility] Breast [facility] ([facility]) [address] [place] [address] Enma Ortiz, NADEGE Appointment (Scheduling of breast biopsy) 07/27/2024 Telephone [facility] Breast [facility] ([facility]) [address] [place] [address] Enma Ortiz, NADEGE Appointment (Scheduling of breast biopsy) 07/27/2024 11:50 AM CDT - 07/27/2024 11:59 PM CDT Hospital Encounter [facility] Radiology [facility] ([facility]) [address] [place] [address] Abnormal mammogram Discharge Disposition: Discharge to home or self care 07/27/2024 Documentation [facility] Obstetrics and Gynecology [address] [place] [address] Advanced Medicine 13th [place] [phone] Rachael Moncada, RN 07/27/2024 Orders Only [facility] Obstetrics and Gynecology [address] [place] [address] Advanced Medicine 13th [place] [id number] Rachael Moncada, RN Mass of temporal lobe (Primary Dx); Endometrial cancer (HCC) 07/27/2024 Orders Only OB ONCOLOGY Rachael Moncada, RN 07/27/2024 11:30 AM CDT [facility] ([facility]) [address] [place] [address] Peritoneal carcinomatosis (HCC) (Primary Dx); Endometrial cancer (HCC); Encounter for preprocedural laboratory examination 07/27/2024 10:15 AM CDT Office Visit [facility] Obstetrics and Gynecology [address] [place] [address] Advanced Medicine 13th [place] [address] Quynh Mims MD Endometrial cancer (HCC) (Primary Dx); Encounter for preprocedural laboratory examination 07/25/2024 Orders Only [facility] Liane Cooper RN 07/22/2024 Results Follow-Up [facility] Obstetrics and Gynecology [address] [facility] for [facility] Medicine 13th [place] [address] Rachael Moncada RN 07/21/2024 Telephone [facility] Obstetrics and Gynecology [address] [facility] Advanced Medicine 13th [place] [address] Rachael Moncada, NADEGE 07/20/2024 7:42 AM CDT - 07/20/2024 11:59 PM CDT Hospital Encounter [facility] Radiology [address] [facility] [place] [address] Quynh Mims MD Endometrial cancer (HCC); Frequent falls; Balance problem Discharge Disposition: Discharge to home or self care 07/15/2024 12:05 AM FUR TRIMMER - 07/15/2024 11:59 PM FUR TRIMMER Hospital Encounter [facility] [address] [place] [address] Discharge Disposition: Discharge to home or self care 07/15/2024 - 07/15/2024 11:59 PM FUR TRIMMER Hospital Encounter [facility] Radiology [facility] [address] [place] [address] Discharge Disposition: Discharge to home or self care 07/06/2024 Documentation [facility] Obstetrics and Gynecology [address] [facility] for [facility] 13th [place] [address] Rachael Moncada, RN 07/06/2024 Orders Only [facility] Rachael Moncada, RN Abnormal breast finding (Primary Dx); Endometrial cancer (HCC); Frequent falls; Balance problem 07/06/2024 2:00 PM FUR TRIMMER [facility] Gynecologic [facility] [address] [place] [address] Endometrial cancer (HCC) (Primary Dx) 07/06/2024 1:00 PM FUR TRIMMER Office Visit [facility] Obstetrics and Gynecology [address] [facility] Advanced [facility] 13th [place] [address] Quynh Mims MD Endometrial cancer (HCC) 07/06/2024 9:39 AM FUR TRIMMER - 07/06/2024 11:59 PM FUR TRIMMER Hospital Encounter [facility] Rad[facility] ([facility]) [address] [place] [address] Endometrial cancer (HCC); Chemotherapy management, encounter for Discharge Disposition: Discharge to home or self care 07/04/2024 Orders Only [facility] Rachael Moncada RN 06/15/2024 Orders Only [facility] Rachael Rm RN 06/15/2024 2:00 PM FUR TRIMMER [facility] ([facility]) [address] [place] [address] Endometrial cancer (HCC) (Primary Dx) 06/15/2024 1:00 PM FUR TRIMMER Office Visit [facility] Obstetrics and Gynecology [address] [place] [address] [facility] 13th [place] [address] Quynh Mims MD Endometrial cancer (HCC) 06/13/2024 Orders Only Rachael Sena RN Endometrial cancer (HCC) (Primary Dx) 05/25/2024 Orders Only Rachael Sena RN Endometrial cancer (HCC) (Primary Dx); Chemotherapy management, encounter for 05/25/2024 9:15 AM FUR TRIMMER Office Visit [facility] Obstetrics and Gynecology [facility] Advanced Medicine 13th [place] [address] Quynh Mims MD Endometrial cancer (HCC) 05/25/2024 10:00 AM FUR TRIMMER [facility] ([facility]) [address] [place] [address] Endometrial cancer (HCC) (Primary Dx) 05/23/2024 Orders Only [facility] Crader, Rachael L., RN Endometrial cancer (HCC) (Primary Dx) from Last 3 Months Allergies Active Allergy [...] each cycle. 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 30 tablet 3 3 025 Discontin ued(Thera py completed ) loratadine 10 mg capsuleIndicat ions:Allergic Rhinitis Take 1 capsule by mouth every morning 025 Discontin ued(Thera py completed ) oxyCODONE (ROXICODONE) 5 mg immediate release tabletIndicati ons:Pain Take 1 tablet (5 mg total) by mouth every 4 (four) hours as needed for pain 10 tablet 4 025 Discontin ued(Thera py completed ) Active [...] on file Legal Sex Female 3:27 AM FUR TRIMMER Gender Identity Not on file Sexual Orientation Not on file Last Filed Vital Signs Vital Sign Reading Time Taken Comments Blood Pressure 123/78 07/27/2024 9:58 AM CDT Pulse 84 07/27/2024 9:58 AM CDT Temperature 36.7 C (98.1 F) 07/27/2024 9:58 AM CDT Respiratory Rate 16 07/27/2024 9:58 AM CDT Oxygen Saturation 97% 07/27/2024 9:58 AM CDT Inhaled Oxygen Concentration - - Weight 84.1 kg (185 lb 8 oz) 07/27/2024 9:58 AM CDT Height 157.5 cm (5' 2.01 ) 07/27/2024 9:58 AM CD T Body Mass Index 33.92 07/27/2024 9:58 AM CDT Plan of Treatment Not on file Medical Devices Implanted Type Area On Call Device Identifier Shelf Expiration Date Model / Serial / Lot [employer] Excela Low Porfile Power Port 8fr 1.6mm 1 Lumen [id number] - [id number] Implanted:Qty: 1 on 05/06/2023 at [facility] [employer] 01/04/2028 [id number] / / [id number] Procedures Procedure Name Priority Date/Time Associated Diagnosis Comments SCAN - LABS 08/05/2024 5:58 PM CDT MISC-ORDER Routine 08/02/2024 9:07 AM CDT US BREAST RIGHT LIMITED Schedule Routine, Read Routine (OP Routine) 08/01/2024 3:11 PM CDT Abnormal mammogram DIAGNOSTIC MAMMOGRAM BILATERAL W HAROON Schedule Routine, Read Routine (OP Routine) 08/01/2024 2:23 PM CDT Endometrial cancer (HCC) Abnormal breast finding BREAST IMAGING MG DIAGNOSTIC OUTSIDE CONSULT Routine 07/27/2024 6:06 PM CDT Abnormal mammogram PROTIME-INR Routine 07/27/2024 11:41 AM CDT Endometrial cancer (HCC) Encounter for preprocedural laboratory examination SCAN - LABS 07/27/2024 9:02 AM CDT SCAN - LABS 07/25/2024 3:10 PM CDT MRI BRAIN W WO CONTRAST Schedule Routine, Read Routine (OP Routine) 07/20/2024 8:33 AM CDT Endometrial cancer (HCC) Frequent falls Balance problem BREAST IMAGING US OUTSIDE REFERENCE Routine 07/15/2024 12:05 AM FUR TRIMMER BREAST IMAGING MG DIAGNOSTIC OUTSIDE REFERENCE Routine 07/15/2024 12:00 AM FUR TRIMMER SCAN - LABS 07/06/2024 11:[address] CHEST ABDOMEN PELVIS W CONTRAST Routine 07/06/2024 10:31 AM FUR TRIMMER Endometrial cancer (HCC) Chemotherapy management, encounter for POCT CREATININE - DEVICE Routine 07/06/2024 10:11 AM FUR TRIMMER SCAN - LABS 07/04/2024 5:29 PM FUR TRIMMER SCAN - LABS 06/15/2024 5:37 PM FUR TRIMMER SCAN - LABS 06/13/2024 11:26 AM FUR TRIMMER SCAN - LABS 05/25/2024 11:12 AM FUR TRIMMER SCAN - LABS 05/23/2024 6:14 PM FUR TRIMMER EGFR Routine 01/12/2024 8:02 AM CDT Endometrial cancer (HCC) COLONOSCOPY 10/23/2023 8:19 AM CDT HEMOGLOBIN A1C Routine 09/17/2023 10:35 AM CDT Preoperative testing Diabetes mellitus without complication (HCC) from Last 3 Months or Most Recently Relevant to Health Maintenance Results * SCAN - LABS (08/05/2024 5:58 PM CDT) Rachael Moncada RN Final Result * MISC-ORDER (08/02/2024 9:07 AM CDT) Historical Provider LAB BLOOD ORDERABLES Jo l Result * US Breast Right Limited (08/01/2024 3:11 PM CDT) Anatomical Region Laterality Modality Breast Right Ultrasound 08/01/2024 3:57 PM CDT Impressions 08/01/2024 4:41 PM CDT 1. 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 Recommend consultation with breast surgeon. If clinically indicated or if there is clinical concern for malignancy, ultrasound-guided biopsy could be performed. Otherwise, follow-up RIGHT breast ultrasound in 6 weeks is recommended. 2. Borderline enlarged morphologically normal right lymph nodes are likely reactive and should be further evaluated at time of follow-up for above. 3. Subareolar left breast calcifications are not significantly changed since February 2024 and considered probably benign. OVERALL FINAL ASSESSMENT: BI-RADS Category 3: Probably Benign. RECOMMENDATION: 1. Breast surgery consultation is recommended for suspected subareolar right breast Zuska's disease. If clinically indicated, biopsy could be performed. Otherwise, follow-up ultrasound in 6 weeks after completion of treatment is recommended. 2. Recommend follow-up diagnostic left breast mammogram in one year, for probably benign subareolar left breast calcifications. Dr. Hampton discussed the above findings and recommendations with the patient. Dictated by: Sepideh Metcalf MD The radiology attending physician has personally reviewed this study, and had reviewed and/or edited this written report and agrees with it. Electronically signed by: Efrain Hampton MD Narrative 08/01/2024 4:41 PM CDT EXAMINATION: BILATERAL DIGITAL DIAGNOSTIC MAMMOGRAM INCLUDING CAD AND BILATERAL DIGITAL BREAST TOMOSYNTHESIS; RIGHT BREAST SONOGRAM HISTORY: 69-year-old female with tobacco use history presenting with focal asymmetry in the subareolar right breast with overlying skin thickening and purulent drainage. Reported improvement with antibiotic treatment. She also has a prominent right axillary lymph node for which right axillary ultrasound was recommended and subareolar left breast calcifications for which magnification views are recommended. COMPARISON: Breast ultrasound dated 07/15/2024 and multiple prior mammograms, most recently 07/15/2024 TECHNIQUE: Full field digital mammographic views of BOTH breasts were performed, including computer aided detection (CAD) and BILATERAL digital breast tomosynthesis (DBT). Directed ultrasound evaluation of the RIGHT breast was performed by a trained senior net software engineer and by Dr. Hampton . BREAST PARENCHYMAL COMPOSITION: There are scattered areas of fibroglandular density. MAMMOGRAM FINDINGS: Focal asymmetry in the subareolar right breast appears not significantly changed compared to prior examination. Subareolar calcifications in the left breast appear stable dating back to magnification views in February 2024. SONOGRAM FINDINGS: Targeted sonographic examination of the subareolar right breast demonstrates multiple versus lobulated circumscribed hypoechoic collections subareolar masses with internal vascularity. These appear to be within the thickened skin. One at the 3 o'clock position in the right breast 1 cm from the nipple measures 3.2 x 1.1 x 3.5 cm. A component in the 12 o'clock position of the subareolar right breast measures 2.6 x 0.7 x 1.8 cm. A component of the 2:30 o'clock position 1 cm from the nipple measures 2.9 x 1.7 x 1.2 cm. Targeted sonographic examination of the right axilla demonstrates multiple minimally prominent lymph nodes with fatty kiah measuring up to 0.5 cm in cortical thickness. Overall cortical morphology remain smooth. Procedure Note Efrain Hampton MD - 08/01/2024 EXAMINATION: BILATERAL DIGITAL DIAGNOSTIC MAMMOGRAM INCLUDING CAD AND BILATERAL DIGITAL BREAST TOMOSYNTHESIS; RIGHT BREAST SONOGRAM HISTORY: 69-year-old female with tobacco use history presenting with focal asymmetry in the subareolar right breast with overlying skin thickening and purulent drainage. Reported improvement with antibiotic treatment. She also has a prominent right axillary lymph node for which right axillary ultrasound was recommended and subareolar left breast calcifications for which magnification views are recommended. COMPARISON: Breast ultrasound dated 07/15/2024 and multiple prior mammograms, most recently 07/15/2024 TECHNIQUE: Full field digital mammographic views of BOTH breasts were performed, including computer aided detection (CAD) and BILATERAL digital breast tomosynthesis (DBT). Directed ultrasound evaluation of the RIGHT breast was performed by a trained senior net software engineer and by Dr. Hampton . BREAST PARENCHYMAL COMPOSITION: There are scattered areas of fibroglandular density. MAMMOGRAM FINDINGS: Focal asymmetry in the subareolar right breast appears not significantly changed compared to prior examination. Subareolar calcifications in the left breast appear stable dating back to magnification views in February 2024. SONOGRAM FINDINGS: Targeted sonographic examination of the subareolar right breast demonstrates multiple versus lobulated circumscribed hypoechoic collections subareolar masses with internal vascularity. These appear to be within the thickened skin. One at the 3 o'clock position in the right breast 1 cm from the nipple measures 3.2 x 1.1 x 3.5 cm. A component in the 12 o'clock position of the subareolar right breast measures 2.6 x 0.7 x 1.8 cm. A component of the 2:30 o'clock position 1 cm from the nipple measures 2.9 x 1.7 x 1.2 cm. Targeted sonographic examination of the right axilla demonstrates multiple minimally prominent lymph nodes with fatty kiah measuring up to 0.5 cm in cortical thickness. Overall cortical morphology remain smooth. IMPRESSION: 1. 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 Recommend consultation with breast surgeon. If clinically indicated or if there is clinical concern for malignancy, ultrasound-guided biopsy could be performed. Otherwise, follow-up RIGHT breast ultrasound in 6 weeks is recommended. 2. Borderline enlarged morphologically normal right lymph nodes are likely reactive and should be further evaluated at time of follow-up for above. 3. Subareolar left breast calcifications are not significantly changed since February 2024 and considered probably benign. OVERALL FINAL ASSESSMENT: BI-RADS Category 3: Probably Benign. RECOMMENDATION: 1. Breast surgery consultation is recommended for suspected subareolar right breast Zuska's disease. If clinically indicated, biopsy could be performed. Otherwise, follow-up ultrasound in 6 weeks after completion of treatment is recommended. 2. Recommend follow-up diagnostic left breast mammogram in one year, for probably benign subareolar left breast calcifications. Dr. Hampton discussed the above findings and recommendations with the patient. Dictated by: Sepideh Metcalf MD The radiology attending physician has personally reviewed this study, and had reviewed and/or edited this written report and agrees with it. Electronically signed by: Efrain Hampton MD us Quynh Mims MD IMG MAMMO PROCEDURES Final Result * DIAGNOSTIC MAMMOGRAM BILATERAL W HAROON (08/01/2024 2:23 PM CDT) Anatomical Region Laterality Modality Breast Bilateral Mammography 08/01/2024 3:57 PM CDT Impressions 08/01/2024 4:41 PM CDT 1. 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 Recommend consultation with breast surgeon. If clinically indicated or if there is clinical concern for malignancy, ultrasound-guided biopsy could be performed. Otherwise, follow-up RIGHT breast ultrasound in 6 weeks is recommended. 2. Borderline enlarged morphologically normal right lymph nodes are likely reactive and should be further evaluated at time of follow-up for above. 3. Subareolar left breast calcifications are not significantly changed since February 2024 and considered probably benign. OVERALL FINAL ASSESSMENT: BI-RADS Category 3: Probably Benign. RECOMMENDATION: 1. Breast surgery consultation is recommended for suspected subareolar right breast Zuska's disease. If clinically indicated, biopsy could be performed. Otherwise, follow-up ultrasound in 6 weeks after completion of treatment is recommended. 2. Recommend follow-up diagnostic left breast mammogram in one year, for probably benign subareolar left breast calcifications. Dr. Hampton discussed the above findings and recommendations with the patient. Dictated by: Sepideh Metcalf MD The radiology attending physician has personally reviewed this study, and had reviewed and/or edited this written report and agrees with it. Electronically signed by: Efrain Hampton MD Narrative 08/01/2024 4:41 PM CDT EXAMINATION: BILATERAL DIGITAL DIAGNOSTIC MAMMOGRAM INCLUDING CAD AND BILATERAL DIGITAL BREAST TOMOSYNTHESIS; RIGHT BREAST SONOGRAM HISTORY: 69-year-old female with tobacco use history presenting with focal asymmetry in the subareolar right breast with overlying skin thickening and purulent drainage. Reported improvement with antibiotic treatment. She also has a prominent right axillary lymph node for which right axillary ultrasound was recommended and subareolar left breast calcifications for which magnification views are recommended. COMPARISON: Breast ultrasound dated 07/15/2024 and multiple prior mammograms, most recently 07/15/2024 TECHNIQUE: Full field digital mammographic views of BOTH breasts were performed, including computer aided detection (CAD) and BILATERAL digital breast tomosynthesis (DBT). Directed ultrasound evaluation of the RIGHT breast was performed by a trained senior net software engineer and by Dr. Hampton . BREAST PARENCHYMAL COMPOSITION: There are scattered areas of fibroglandular density. MAMMOGRAM FINDINGS: Focal asymmetry in the subareolar right breast appears not significantly changed compared to prior examination. Subareolar calcifications in the left breast appear stable dating back to magnification views in February 2024. SONOGRAM FINDINGS: Targeted sonographic examination of the subareolar right breast demonstrates multiple versus lobulated circumscribed hypoechoic collections subareolar masses with internal vascularity. These appear to be within the thickened skin. One at the 3 o'clock position in the right breast 1 cm from the nipple measures 3.2 x 1.1 x 3.5 cm. A component in the 12 o'clock position of the subareolar right breast measures 2.6 x 0.7 x 1.8 cm. A component of the 2:30 o'clock position 1 cm from the nipple measures 2.9 x 1.7 x 1.2 cm. Targeted sonographic examination of the right axilla demonstrates multiple minimally prominent lymph nodes with fatty kiah measuring up to 0.5 cm in cortical thickness. Overall cortical morphology remain smooth. Procedure Note Efrain Hampton MD - 08/01/2024 EXAMINATION: BILATERAL DIGITAL DIAGNOSTIC MAMMOGRAM INCLUDING CAD AND BILATERAL DIGITAL BREAST TOMOSYNTHESIS; RIGHT BREAST SONOGRAM HISTORY: 69-year-old female with tobacco use history presenting with focal asymmetry in the subareolar right breast with overlying skin thickening and purulent drainage. Reported improvement with antibiotic treatment. She also has a prominent right axillary lymph node for which right axillary ultrasound was recommended and subareolar left breast calcifications for which magnification views are recommended. COMPARISON: Breast ultrasound dated 07/15/2024 and multiple prior mammograms, most recently 07/15/2024 TECHNIQUE: Full field digital mammographic views of BOTH breasts were performed, including computer aided detection (CAD) and BILATERAL digital breast tomosynthesis (DBT). Directed ultrasound evaluation of the RIGHT breast was performed by a trained senior net software engineer and by Dr. Hampton . BREAST PARENCHYMAL COMPOSITION: There are scattered areas of fibroglandular density. MAMMOGRAM FINDINGS: Focal asymmetry in the subareolar right breast appears not significantly changed compared to prior examination. Subareolar calcifications in the left breast appear stable dating back to magnification views in February 2024. SONOGRAM FINDINGS: Targeted sonographic examination of the subareolar right breast demonstrates multiple versus lobulated circumscribed hypoechoic collections subareolar masses with internal vascularity. These appear to be within the thickened skin. One at the 3 o'clock position in the right breast 1 cm from the nipple measures 3.2 x 1.1 x 3.5 cm. A component in the 12 o'clock position of the subareolar right breast measures 2.6 x 0.7 x 1.8 cm. A component of the 2:30 o'clock position 1 cm from the nipple measures 2.9 x 1.7 x 1.2 cm. Targeted sonographic examination of the right axilla demonstrates multiple minimally prominent lymph nodes with fatty kiah measuring up to 0.5 cm in cortical thickness. Overall cortical morphology remain smooth. IMPRESSION: 1. 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 Recommend consultation with breast surgeon. If clinically indicated or if there is clinical concern for malignancy, ultrasound-guided biopsy could be performed. Otherwise, follow-up RIGHT breast ultrasound in 6 weeks is recommended. 2. Borderline enlarged morphologically normal right lymph nodes are likely reactive and should be further evaluated at time of follow-up for above. 3. Subareolar left breast calcifications are not significantly changed since February 2024 and considered probably benign. OVERALL FINAL ASSESSMENT: BI-RADS Category 3: Probably Benign. RECOMMENDATION: 1. Breast surgery consultation is recommended for suspected subareolar right breast Zuska's disease. If clinically indicated, biopsy could be performed. Otherwise, follow-up ultrasound in 6 weeks after completion of treatment is recommended. 2. Recommend follow-up diagnostic left breast mammogram in one year, for probably benign subareolar left breast calcifications. Dr. Hampton discussed the above findings and recommendations with the patient. Dictated by: Sepideh Metcalf MD The radiology attending physician has personally reviewed this study, and had reviewed and/or edited this written report and agrees with it. Electronically signed by: Efrain Hampton MD us Quynh Mims MD IMG MAMMO PROCEDURES Final Result * Breast Imaging DX Outside Consult (07/27/2024 6:06 PM CDT) Anatomical Region Laterality Modality Breast N/A Mammography 07/28/2024 8:48 AM CDT Impressions 07/28/2024 8:56 AM CDT 1. Focal asymmetry in the subareolar RIGHT breast corresponding to patient's concern, with overlying skin thickening. Per medical record, patient's symptoms have improved since starting antibiotics. Therefore, repeat RIGHT breast mammogram and ultrasound are recommended. 2. Prominent RIGHT axillary lymph node. Recommend RIGHT axillary ultrasound. 3. Recommend magnification views of the subareolar left breast.. OVERALL FINAL ASSESSMENT: BI-RADS Category 0: Incomplete - Need Additional Imaging Evaluation. RECOMMENDATION: Additional imaging - diagnostic mammography and ultrasound of the RIGHT breast, and RIGHT axillary ultrasound. Left breast magnification views. NOTE: The findings, conclusions and recommendations within this report do not replace the initial findings, conclusions and recommendations made at the facility where the study was performed based upon the imaging and clinical condition at that time. Review of the prior report and correlation with the clinical history are necessary. The provided images may or may not represent the [place] source data set and thus may contain changes which may lower the sensitivity of the second opinion interpretation. Dictated by: Marlena Petty M.D. The radiology attending physician has personally reviewed this study, and had reviewed and/or edited this written report and agrees with it. Electronically signed by: Estee Dowd M.D. Narrative 07/28/2024 8:56 AM CDT EXAMINATION: REVIEW AND INTERPRETATION OF OUTSIDE IMAGING FACILITY PERFORM[place]ING[place] [facility] [place] REVIEWED: 1. BILATERAL DIAGNOSTIC MAMMOGRAM WITH TOMOSYNTHESIS, 07/15/2024 DATE OF INTERPRETATION: 07/28/2024 HISTORY: 69-year-old woman with endometrial cancer being treated with chemotherapy. She presented to outside hospital with palpable concern in the retroareolar RIGHT breast. After evaluation at outside hospital, ultrasound-guided biopsy was recommended. Per medical record, patient has since been started on antibiotics and reports the area of concern has decreased in size. COMPARISON: Prior mammograms dating back to 2021, most recent bilateral 02/02/2023. BREAST PARENCHYMAL COMPOSITION: There are scattered areas of fibroglandular density. FINDINGS: BILATERAL DIAGNOSTIC MAMMOGRAM 07/15/2024: There is a focal asymmetry in the subareolar RIGHT breast corresponding to patient's concern denoted by triangular marker. This spans up to 7.5 cm CC. There is overlying skin thickening. There is a prominent partially imaged RIGHT axillary lymph node. There are grouped heterogeneous calcifications in the subareolar left breast which have increased when compared to prior study dated 01/30/2022. Reportedly, outside hospital ultrasound of the labeled periareolar RIGHT breast demonstrated a mixed echogenicity area and recommended ultrasound guided biopsy, which has not been performed. Procedure Note Estee Dowd MD - 07/28/2024 EXAMINATION: REVIEW AND INTERPRETATION OF OUTSIDE IMAGING FACILITY PERFORMING [place] IMAGING[place] [facility] [place] REVIEWED: 1. BILATERAL DIAGNOSTIC MAMMOGRAM WITH TOMOSYNTHESIS, 07/15/2024 DATE OF INTERPRETATION: 07/28/2024 HISTORY: 69-year-old woman with endometrial cancer being treated with chemotherapy. She presented to outside hospital with palpable concern in the retroareolar RIGHT breast. After evaluation at outside hospital, ultrasound-guided biopsy was recommended. Per medical record, patient has since been started on antibiotics and reports the area of concern has decreased in size. COMPARISON: Prior mammograms dating back to 2021, most recent bilateral 02/02/2023. BREAST PARENCHYMAL COMPOSITION: There are scattered areas of fibroglandular density. FINDINGS: BILATERAL DIAGNOSTIC MAMMOGRAM 07/15/2024: There is a focal asymmetry in the subareolar RIGHT breast corresponding to patient's concern denoted by triangular marker. This spans up to 7.5 cm CC. There is overlying skin thickening. There is a prominent partially imaged RIGHT axillary lymph node. There are grouped heterogeneous calcifications in the subareolar left breast which have increased when compared to prior study dated 01/30/2022. Reportedly, outside hospital ultrasound of the labeled periareolar RIGHT breast demonstrated a mixed echogenicity area and recommended ultrasound guided biopsy, which has not been performed. IMPRESSION: 1. Focal asymmetry in the subareolar RIGHT breast corresponding to patient's concern, with overlying skin thickening. Per medical record, patient's symptoms have improved since starting antibiotics. Therefore, repeat RIGHT breast mammogram and ultrasound are recommended. 2. Prominent RIGHT axillary lymph node. Recommend RIGHT axillary ultrasound. 3. Recommend magnification views of the subareolar left breast.. OVERALL FINAL ASSESSMENT: BI-RADS Category 0: Incomplete - Need Additional Imaging Evaluation. RECOMMENDATION: Additional imaging - diagnostic mammography and ultrasound of the RIGHT breast, and RIGHT axillary ultrasound. Left breast magnification views. NOTE: The findings, conclusions and recommendations within this report do not replace the initial findings, conclusions and recommendations made at the facility where the study was performed based upon the imaging and clinical condition at that time. Review of the prior report and correlation with the clinical history are necessary. The provided images may or may not represent the [place] source data set and thus may contain changes which may lower the sensitivity of the second opinion interpretation. Dictated by: Marlena Petty M.D. The radiology attending physician has personally reviewed this study, and had reviewed and/or edited this written report and agrees with it. Electronically signed by: Estee Dowd M.D. us Quynh Mims MD IMG MAMMO PROCEDURES Final Result * (ABNORMAL) Protime-INR (07/27/2024 11:41 AM CDT) PT 13.7(H) 9.7 - 13.0 sec INR 1.26(H) 0.90 - 1.20 KRYSTYNA HANSON Comment: Interpretive data Oral anticoagulant therapeutic ranges: Venous thromboembolism prophylaxis or treatment: 2.0-3.0 CARDIOLOGY Standard range: 2.0-3.0 High-intensity range: 2.5-3.5 Refer to indication-specific guidelines for appropriate target ranges for prosthetic heart valve replacement. Current interpretive data was last revised on 2019. Blood 07/27/2024 11:4 1 AM CDT 07/27/2024 1:07 PM CDT us Quynh Mims MD LAB BLOOD ORDERABLES Final Result KRYSTYNA ORTIZ [facility] Department [place] [address] * SCAN - LABS (07/27/2024 9:02 AM CDT) us Rachael Moncada RN Final Result * SCAN - LABS (07/25/2024 3:10 PM CDT) Liane Cooper RN Edited R esult - Final * MRI Brain W WO Contrast (07/20/2024 [...] (Axial Sectra reconstruction images, image 102; Series 72483, image 19; Series 17633, image 71). Mild degree of scattered foci of T2/FLAIR hyperintensities in the periventricular and subcortical white matter, which is a nonspecific finding but may represent chronic small vessel ischemic change. Procedure Note Vo, Roaslinda Salcedo MD - 07/20/2024 EXAMINATION: Magnetic resonance imaging [...] (Axial Sectra reconstruction images, image 102; Series 86515, image 19; Series 64761, image 71). Mild degree of scattered foci [...] Rosalinda Galvez M.D. us Quynh Mims MD IMG MRI PROCEDURES F inal Result * Breast Imaging US Outside Reference (07/15/2024 12:05 AM FUR TRIMMER) Impressions RAD_MAMMO_[facility] - 07/27/2024 2:25 PM CDT These images are for Reference purposes only and have not been reviewed by [facility] Radiology. There will be no report generated by a [facility] Radiologist. Narrative RAD_MAMMO_[facility] - 07/27/2024 2:25 PM CDT EXAMINATION: Images For Reference Purposes Only us Provider Transcribed Order IMG MAMMO PROCEDURES Final Result Performing Organization Address [facility] Co de Phone Number [email or web address] * Breast Imaging Diagnostic Outside Reference (07/15/2024 12:00 AM FUR TRIMMER) Impressions [email or web address] - 07/27/2024 2:25 PM CDT These images are for Reference purposes only and have not been reviewed by [facility] Radiology. There will be no report generated by a [facility] Radiologist. Narrative RAD_MAMMO[facility] - 07/27/2024 2:25 PM CDT EXAMINATION: Images For Reference Purposes Only us Provider Transcribed Order IMG MAMMO PROCEDURES Final Result Performing Organization Address [facility] Co de Phone Number [email or web address] * SCAN - LABS (07/06/2024 11:14 AM FUR TRIMMER) us Rachael Moncada RN Edited Resul t - Final * CT Chest Abdomen Pelvis W Contrast (07/06/2024 10:31 AM FUR TRIMMER) Anatomical Region Laterality Modality Body N/A Computed Tomogra phy 07/06/2024 11:5 3 AM FUR TRIMMER Impressions 07/06/2024 11:53 AM FUR TRIMMER 1. Increased thickness of the endometrial cavity. [...] Bunny Jarvis M.D. Narrative 07/06/2024 11:53 AM FUR TRIMMER EXAMINATION: Computed tomography of the chest, abdomen [...] Result * POCT creatinine (07/06/2024 10:11 AM FUR TRIMMER) Creatinine POC 1.1 0.6 - 1.1 mg/dL Blood 07/06/2024 10:1 1 AM FUR TRIMMER 07/06/2024 10:11 AM FUR TRIMMER Result [facility] us Quynh Mims MD LAB POCT ORDERABLES - DEVICE Final Result [facility] Department [place] [address] * SCAN - LABS (07/04/2024 5:29 PM FUR TRIMMER) us Rachael Moncada RN Edited Resul t - Final * SCAN - LABS (06/15/2024 5:37 PM FUR TRIMMER) us Rachael Moncada RN Edited Resul t - Final * SCAN - LABS (06/13/2024 11:26 AM FUR TRIMMER) us Rachael Moncada RN Final Result * SCAN - LABS (05/25/2024 11:12 AM FUR TRIMMER) us Rachael Moncada RN Edited Resul t - Final * SCAN - LABS (05/23/2024 6:14 PM FUR TRIMMER) us Rachael Moncada RN Final Result * eGFR [...] Mims MD LAB BLOOD ORDERABLES Final Result [facility] [address] Department [place] [address] * Colonoscopy (10/23/2023 8:19 AM CDT) Anatomical Region Laterality Modality Other Narrative Procedure Note Winston Aaron MD - 10/23/2023 8:19 AM CDT ENDOSCOPY LAB Patient Name: Arti Corrigan Procedure Date: 10/23/2023 8:19 AM Admit Type: Outpatient Room: [facility] Date of : 1955 Instrument Name: [...] LAB BLOOD ORDERABLES Final Re sult [facility] Department [place] [address] from Last 3 Months or Most Recently Relevant to Health Maintenance Insurance [place] MEDICARE [facility] MEDICARE [place] Advance Directives For more information, please contact: [phone] * Full Code (Latest Code Status on File) Date Activated Date Inactivated Comments 10/23/2023 7:57 AM 10/23/2023 1:38 PM Care Teams Senior Accounts Payable Clerk Relationship Specialty Start Date End Date Andrea Chandler MD PCP - General Internal Medicine 03/31/23
--- OUTSIDE RECORDS SUMMARY | 2024-08-15 14:27 | XMS_ITS | Encounter Summary ---
Author Organization [facility] Address [address] [place] [address] Phone Care Team Providers Care Fisher Oyster Name Role Phone Andrea Chandler MD Primary Care Provider [phone] Encounter Details Date Type Department Care Team (Late st Contact Info) Description 07/22/2024 Results Follow-Up 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 Pt reports her PCP (who was [...] on filedocumented in this encounter Care Teams Fisher Oyster Relationship Specialty Start Date End Date Andrea Chandler MD PCP - General Internal Medicine 03/31/23 documented as of this encounter
--- OUTSIDE RECORDS SUMMARY | 2024-08-15 14:27 | XMS_ITS ---
Author Organization [facility] [place] [address] Address [address] [place] [address] Care Team Providers Care Manager Talent Management Name Role Phone Andrea Chandler MD Primary Care Provider [phone] Active Problems Problem Noted Date Diagnosed Date [...] Plans IV Maintenance Therapy Plan* Plan Start Date:07/27/2024 Plan Provider:Quynh Mims MD Linked Problems Endometrial cancer (HCC)Barbara toneal carcinomatosis (HCC) Treatment Medications No medications scheduled. Pembrolizumab 21 Day Cycles - ART MUSEUM DOCENT (Carbo Completed)* Plan Start Date:04/30/2023 Plan Provider:Quynh Mims MD Linked Problems Endometrial cancer (HCC) Treatment Medications Current Day (Day 1 , Cycle 22 - Planned for 08/17/2024) Next Day (Day 1, Cycle 23 - Planned for 09/07/2024) CARBOplatin (PARAPLATIN) IVP B in 250 mL [...]
--- OUTSIDE RECORDS SUMMARY | 2024-08-15 14:27 | XMS_ITS | Clinical Summary ---
Author Organization [facility] [address] Address [address] [place] [address] Care Team Providers Care Remediation Consultant Name Role Phone Andrea Chandler MD Primary Care Provider Allergies Active Allergy Reactions Criticality Noted Date [...] cycle. 9 tablet 1 12/25/202 3 Active ondansetron (ZOFRAN) 8 mg tabletIndicati [...] 1 capsule (75 mg total) by mouth stone sawyer before breakfast Active acetaminophen (TYLENOL) 500 mg [...] Department Care Team Description 08/05/2024 Orders Only [facility] Rachael Moncada RN 08/02/2024 Orders Only [facility] Obstetrics and Gynecology [address] [place] [address] Advanced Medicine 13th [place] [address] [place] [address] Rachael Moncada RN Abnormal breast finding (Primary Dx); Abnormal mammogram of right breast; Abscess of right breast 08/02/2024 Orders Only [facility] Obstetrics and Gynecology [address] [place] [address] Advanced Medicine 13th [place] [address] [place] [address] ProviderRosa MD 08/01/2024 1:18 PM CDT - 08/01/2024 11:59 PM CDT Hospital Encounter [facility] - Breast Imaging [address] [facility] [address] [place] [address] Abnormal mammogram Discharge Disposition: Discharge to home or self care 08/01/2024 1:18 PM CDT - 08/01/2024 11:59 PM CDT Hospital Encounter [facility] - Breast Imaging [address] [facility] [address] [place] [address] Endometrial cancer (HCC); Abnormal breast finding Discharge Disposition: Discharge to home or self care 07/28/2024 Telephone [facility] [address] [place] [address] Sepideh Hernandez RN 07/27/2024 11:50 AM CDT - 07/27/2024 11:59 PM CDT Hospital Encounter [facility] ([facility]) [address] [place] [address] Abnormal mammogram Discharge Disposition: Discharge to home or self care 07/27/2024 11:30 AM CDT [facility]) [address] [place] [address] Peritoneal carcinomatosis (HCC) (Primary Dx); Endometrial cancer (HCC); Encounter for preprocedural laboratory examination 07/27/2024 10:15 AM CDT Office Visit [facility] Obstetrics and Gynecology [address] [place] [address] [facility] 13th [place] [phone] Quynh Mims MD Endometrial cancer (HCC) (Primary Dx); Encounter for preprocedural laboratory examination 07/27/2024 Telephone [facility] ([facility]) [address] [place] [address] Enma Ortiz RN Appointment (Scheduling of breast biopsy) 07/27/2024 Telephone [facility] ([facility]) [address] [place] [address] Enma Ortiz RN Appointment (Scheduling of breast biopsy) 07/27/2024 Telephone [facility] ([facility]) [address] [place] [address] Enma Ortiz RN Appointment (Scheduling of breast biopsy) 07/27/2024 Documentation [facility] Obstetrics and Gynecology [address] [place] [address] [facility] 13th [place] [phone] Rachael Moncada RN 07/27/2024 Orders Only [facility] Obstetrics and Gynecology [address] [place] [address] [facility] 13th [place] [phone] Rachael Moncada RN Mass of temporal lobe (Primary Dx); Endometrial cancer (HCC) 07/27/2024 Orders Only [facility] Rachael Moncada RN 07/25/2024 Orders Only [facility] Liane Cooper RN 07/22/2024 Results Follow-Up [facility] Obstetrics and Gynecology [address] [place] [address] Advanced Medicine 13th [place] [phone] Rachael Moncada RN 07/21/2024 Telephone [facility] Obstetrics and Gynecology [address] [facility] for [facility] Medicine 13th [place] [address] [place] [address] Rachael Moncada RN 07/20/2024 7:42 AM CDT - 07/20/2024 11:59 PM CDT Hospital Encounter [facility] [address] [facility] [address] Quynh Mims MD Endometrial cancer (HCC); Frequent falls; Balance problem Discharge Disposition: Discharge to home or self care 07/15/2024 12:05 AM EMBOSSER OPERATOR - 07/15/2024 11:59 PM EMBOSSER OPERATOR Hospital Encounter [facility] for [facility] ([facility]) [address] [place] [address] Discharge Disposition: Discharge to home or self care 07/15/2024 - 07/15/2024 11:59 PM EMBOSSER OPERATOR Hospital Encounter [facility] [place] [facility] ([facility]) [address] [place] [address] Discharge Disposition: Discharge to home or self care 07/06/2024 2:00 PM EMBOSSER OPERATOR [facility] [place] [facility] ([facility]) [address] [place] [address] Endometrial cancer (HCC) (Primary Dx) 07/06/2024 1:00 PM EMBOSSER OPERATOR Office Visit [facility] Obstetrics and Gynecology [address] [place] [address] for [facility] Medicine 13th [place] [address] Quynh Mims MD Endometrial cancer (HCC) 07/06/2024 9:39 AM EMBOSSER OPERATOR - 07/06/2024 11:59 PM EMBOSSER OPERATOR Hospital Encounter [facility]) [address] [place] [address] Endometrial cancer (HCC); Chemotherapy management, encounter for Discharge Disposition: Discharge to home or self care 07/06/2024 Documentation [facility] Obstetrics and Gynecology [address] [place] [address] for [facility] 13th [place] [address] [place] [address] Rachael Moncada RN 07/06/2024 Orders Only [facility] Rachael Rm RN Abnormal breast finding (Primary Dx); Endometrial cancer (HCC); Frequent falls; Balance problem 07/04/2024 Orders Only Rachael Sena RN 06/15/2024 2:00 PM EMBOSSER OPERATOR [facility] ([facility]) [address] [place] [address] Endometrial cancer (HCC) (Primary Dx) 06/15/2024 1:00 PM EMBOSSER OPERATOR Office Visit [facility] Obstetrics and Gynecology [address] [place] [address] [facility] 13th [place] [address] Quynh Mims MD Endometrial cancer (HCC) 06/15/2024 Orders Only [facility] Rachael Rm RN 06/13/2024 Orders Only [facility] Rachael Rm RN Endometrial cancer (HCC) (Primary Dx) 05/25/2024 10:00 AM EMBOSSER OPERATOR [facility] Gynecologic Oncology [place] [facility] ([facility]) [address] [place] [address] Endometrial cancer (HCC) (Primary Dx) 05/25/2024 9:15 AM EMBOSSER OPERATOR Office Visit [facility] Obstetrics and Gynecology [address] [place] [address] 13th [place] [address] Quynh Mims MD Endometrial cancer (HCC) 05/25/2024 Orders Only [facility] Rachael Rm RN Endometrial cancer (HCC) (Primary Dx); Chemotherapy management, encounter for 05/23/2024 Orders Only [facility] Rachael Rm RN Endometrial cancer (HCC) (Primary Dx) from Last 3 Months Immunizations Immunization Administration [...] on file Legal Sex Female 3:27 AM EMBOSSER OPERATOR Gender Identity Not on file Sexual [...] 07/27/2024 9:58 AM CDT Plan of Treatment Health Maintenance Due Date Last Done Comments Albumin Creatinine Ratio, Urine 1955 Depression Screening 1955 Hepatitis C Screening 1955 Osteoporosis Screening-Bone Density Scan 1955 Dilated Eye Exam 1955 Foot Exam 1955 Lipid Panel 1955 DTaP/Tdap/Td Vaccine (1 - Tdap) 02/13/1968 Hepatitis B Screening 1975 Pneumococcal vaccine 65+ (1 of 2 - PCV) 02/13/1976 Zoster Vaccine (1 of 2) 02/13/1976 Well Visit 65+ 2022 Covid-19 Vaccine (4 - 2023-2 5 season) 2024 04/26/2021, 08/14/2020, 07/17/2020 Hemoglobin A1C 03/19/2024 09/17/2023, 04/17/2023 Fall Risk Assessment 10/22/2024 10/23/2023 Influenza Vaccine (Season Ended) 2025 03/06/2023, 02/11/2022, 01/31/2019, Additional history exists eGFR 01/11/2025 01/12/2024, 0501/2024, 05/06/2023, Additional history exists Breast Cancer Screening-Mammogram 08/01/2025 025 Colon Cancer Screening-Colonoscopy 10/22/20332023 Medical Devices Implanted Type Area Tax Technician Device Identifier Shelf Expiration Date Model / Serial / Lot [employer] Excela Low Porfile Power Port 8fr 1.6mm 1 Lumen [id number] - [id number] Implanted:Qty: 1 on 05/06/2023 at [facility] [employer] 01/04/2028 [id number] / / [id number] Procedures Procedure Name Priority Date/Time Associated Diagnosis [...] US OUTSIDE REFERENCE Routine 07/15/2024 12:05 AM EMBOSSER OPERATOR BREAST IMAGING MG DIAGNOSTIC OUTSIDE REFERENCE Routine 07/15/2024 12:00 AM EMBOSSER OPERATOR SCAN - LABS 07/06/2024 11:[address] CHEST ABDOMEN PELVIS W CONTRAST Routine 07/06/2024 10:31 AM EMBOSSER OPERATOR Endometrial cancer (HCC) Chemotherapy management, encounter for POCT CREATININE - DEVICE Routine 07/06/2024 10:11 AM EMBOSSER OPERATOR SCAN - LABS 07/04/2024 5:29 PM EMBOSSER OPERATOR SCAN - LABS 06/15/2024 5:37 PM EMBOSSER OPERATOR SCAN - LABS 06/13/2024 11:26 AM EMBOSSER OPERATOR SCAN - LABS 05/25/2024 11:12 AM EMBOSSER OPERATOR SCAN - LABS 05/23/2024 6:14 PM EMBOSSER OPERATOR EGFR Routine 01/12/2024 8:02 AM CDT Endometrial cancer (HCC) COLONOSCOPY 10/23/2023 8:19 AM CDT HEMOGLOBIN A1C Routine 09/17/2023 10:35 AM CDT Preoperative testing Diabetes mellitus without complication (HCC) from Last 3 Months or Most Recently Relevant to Health Maintenance Results * SCAN - LABS (08/05/2024 5:58 PM CDT) Rachael Mocnada RN Final Result * MISC-ORDER (08/02/2024 9:07 AM CDT) Historical Provider MD LAB BLOOD ORDERABLES Jo l Result * [...] RIGHT breast was performed by a trained healthcare social worker and by Dr. Hampton . BREAST PARENCHYMAL [...] RIGHT breast was performed by a trained healthcare social worker and by Dr. Hampton . BREAST PARENCHYMAL [...] RIGHT breast was performed by a trained healthcare social worker and by Dr. Hampton . BREAST PARENCHYMAL [...] RIGHT breast was performed by a trained healthcare social worker and by Dr. Hampton . BREAST PARENCHYMAL [...] images may or may not represent the [facility] source data set and thus may contain [...] OF OUTSIDE IMAGING FACILITY PERFORMING OUTSIDE IMAGING: [facility] EXAM(S) REVIEWED: 1. BILATERAL DIAGNOSTIC MAMMOGRAM WITH [...] OF OUTSIDE IMAGING FACILITY PERFORMING OUTSIDE IMAGING: [facility] EXAM(S) REVIEWED: 1. BILATERAL DIAGNOSTIC MAMMOGRAM WITH [...] images may or may not represent the [facility] source data set and thus may contain [...] sec INR 1.26(H) 0.90 - 1.20 [facility]ST[facility] ORTI[facility] Comment: Interpretive data Oral anticoagulant therapeutic ranges: Venous thromboembolism prophylaxis or treatment: 2.0-3.0 CARDIOLOGY Standard range: 2.0-3.0 High-intensity range: 2.5-3.5 Refer to indication-specific guidelines for appropriate target ranges for prosthetic heart valve replacement. Current interpretive data was last revised on 2019. Blood 07/27/2024 11:4 1 AM CDT 07/27/2024 1:07 PM CDT us Quynh Mims MD LAB BLOOD ORDERABLES Final Result [facility] ORTIZ [facility] [place] [address] * SCAN - LABS (07/27/2024 9:02 AM CDT) us Rachael Moncada RN Final Result * SCAN - LABS (07/25/2024 3:10 PM CDT) us Liane Cooper RN Edited R esult - [...] (Axial Sectra reconstruction images, image 102; Series 64430, image 19; Series 27791, image 71). Mild degree of scattered foci of T2/FLAIR hyperintensities in the periventricular and subcortical white matter, which is a nonspecific finding but may represent chronic small vessel ischemic change. Procedure Note VoRosalinda MD - 07/20/2024 EXAMINATION: Magnetic resonance imaging [...] (Axial Sectra reconstruction images, image 102; Series 19063, image 19; Series 97450, image 71). Mild degree of scattered foci [...] Imaging US Outside Reference (07/15/2024 12:05 AM EMBOSSER OPERATOR) Impressions [email or web address] - 07/27/2024 2:25 PM CDT These images are for Reference purposes only and have not been reviewed by [facility]iology. There will be no report generated by a [facility] Radiologist. Narrative [facility] - 07/27/2024 2:25 PM CDT EXAMINATION: Images For Reference Purposes Only us Provider Transcribed Order IMG MAMMO PROCEDURES Final Result Performing Organization Address [facility] Co de Phone Number [email or web address] * Breast Imaging Diagnostic Outside Reference (07/15/2024 12:00 AM EMBOSSER OPERATOR) Impressions [email or web address] - 07/27/2024 2:25 PM CDT These images are for Reference purposes only and have not been reviewed by [facility]iology. There will be no report generated by a [facility] Radiologist. Narrative [facility] - 07/27/2024 2:25 PM CDT EXAMINATION: Images For Reference Purposes Only us Provider Transcribed Order IMG MAMMO PROCEDURES Final Result Performing Organization Address City/[facility]/ZIP Co de Phone Number [email or web address] * SCAN - LABS (07/06/2024 11:14 AM EMBOSSER OPERATOR) us Rachael Moncada RN Edited Resul t - Final * CT Chest Abdomen Pelvis W Contrast (07/06/2024 10:31 AM EMBOSSER OPERATOR) Anatomical Region Laterality Modality Body N/A Computed Tomogra phy 07/06/2024 11:5 3 AM EMBOSSER OPERATOR Impressions 07/06/2024 11:53 AM EMBOSSER OPERATOR 1. Increased thickness of the endometrial cavity. [...] Bunny Jarvis M.D. Narrative 07/06/2024 11:53 AM EMBOSSER OPERATOR EXAMINATION: Computed tomography of the chest, abdomen [...] Result * POCT creatinine (07/06/2024 10:11 AM EMBOSSER OPERATOR) Creatinine POC 1.1 0.6 - 1.1 mg/dL Blood 07/06/2024 10:1 1 AM EMBOSSER OPERATOR 07/06/2024 10:11 AM EMBOSSER OPERATOR Result [facility] us Quynh Mims MD LAB POCT ORDERABLES - DEVICE Final Result [facility] [place] [address] * SCAN - LABS (07/04/2024 5:29 PM EMBOSSER OPERATOR) us Rachael Moncada RN Edited Resul t - Final * SCAN - LABS (06/15/2024 5:37 PM EMBOSSER OPERATOR) us Rachael Moncada RN Edited Resul t - Final * SCAN - LABS (06/13/2024 11:26 AM EMBOSSER OPERATOR) us Rachael Moncada RN Final Result * SCAN - LABS (05/25/2024 11:12 AM EMBOSSER OPERATOR) Result Rene Moncada RN Edited Resul t - Final * SCAN - LABS (05/23/2024 6:14 PM EMBOSSER OPERATOR) us Rachael Moncada RN Final Result * [...] AM CDT 01/12/2024 8:11 AM CDT us Qyunh Mims MD LAB BLOOD ORDERABLES Final Result [facility] [address] [place] [address] * Colonoscopy (10/23/2023 8:19 AM CDT) Anatomical Region Laterality Modality Other Narrative Procedure Note Winston Aaron MD - 10/23/2023 8:19 AM CDT ENDOSCOPY LAB Patient Name: Arti Corrigan Procedure Date: 10/23/2023 8:19 AM Admit Type: Outpatient Room: [facility] Date of : 1955 Instrument [...] NP LAB BLOOD ORDERABLES Final Re sult [facility] [place] [address] from Last 3 Months or Most Recently Relevant to Health Maintenance Insurance [place] MEDICARE [facility] MEDICARE [facility] Address: [address] [address] [place] [address] [employer] Advance Directives For more information, please contact: [phone] * Full Code (Latest Code Status on File) Date Activated Date Inactivated Comments 10/23/2023 7:57 AM 10/23/2023 1:38 PM Care Teams Remediation Consultant Relationship Specialty Start Date End Date Andrea Chandler MD PCP - General Internal Medicine 03/31/23
--- OUTSIDE RECORDS SUMMARY | 2024-08-15 14:27 | XMS_ITS | Clinical Summary ---
Author Organization [facility] Address [address] [address] Phone Care Team Providers Care Energy Trading Analyst Name Role Phone ShawnEmery squires Marian GRIFFIN Primary Care Provider [phone] Allergies No known active allergies Medications metFORMIN [...] on file Legal Sex Female 10:16 AM CUTCH CLEANER Gender Identity Not on file Sexual Orientation [...] CHEST W/O CONTRAST Routine 04/13/2019 9:22 AM CUTCH CLEANER Lung nodule < 6cm on CT from Last 3 Months or Most Recently Relevant to Health Maintenance Results * CT CHEST W/O CONTRAST (04/13/2019 9:22 AM CUTCH CLEANER) Anatomical Region Laterality Modality Chest N/A Computed Tomogra phy 04/13/2019 9:40 AM CUTCH CLEANER Impressions 04/13/2019 9:43 AM CUTCH CLEANER IMPRESSION: 1. A 5 mm ground-glass nodule [...] as described above. Narrative 04/13/2019 9:43 AM CUTCH CLEANER EXAM DESCRIPTION: CT CHEST W/O CONTRAST REASON [...] 04/13/2019 9:40 AM - Electronically signed by Rojeloi Yun M.D. RL: DEVIN Report ID: [id number] Reading Location: [id number] Procedure Note Rojelio Yun MD - 04/13/2019 [...] Rojelio Yun M.D. RL: DEVIN Report ID: [id number] Reading Location: [id number] IMPRESSION: 1. A 5 mm ground-glass nodule [...] Insurance MEDICAID [place] [id number] Care Teams Energy Trading Analyst Relationship Specialty Start Date End Date Emery Higgins DO [address] [place] [address] PCP - General Internal Medicine 07/13/18
[2024-08-17 02:49] LABS: CA-125 92 U/mL (<35)
[2024-08-17 07:40] LABS: Thyroid Peroxidase Antibodies 50 IU/mL (<9)
[2024-08-17 14:03] LABS: Hemoglobin A1C 9.1 % (<5.7)
== END 2024-08-15 12:47 | disposition home or self-care (01) ==
LOC: CHSLAB 12:48
PROVIDERS: PCP Internal Medicine
DX: C54.1 Malignant neoplasm of endometrium (principal); E11.9 Type 2 diabetes mellitus without complications; E03.9 Hypothyroidism, unspecified
CPT/HCPCS: 36415; 80053; 83036; 83735; 84439; 84443; 85025; 86304; 86376

== ENCOUNTER 2024-08-19 10:03 | Outpatient (CLI) | payer MEDICARE, SELFPAY ==
--- OUTSIDE RECORDS SUMMARY | 2024-08-19 10:40 | XMS_ITS | Encounter Summary ---
Author Organization [facility] Address [address] [place] [address] Phone Care Team Providers Care Director Of Placement Name Role Phone Andrea Chandler MD Primary Care Provider Encounter Details Date Type Department Care Team (Latest Contact Info) Description 08/17/2024 Orders Only [facility] Rachael Moncada RN Social History Tobacco Use Types Packs/Day [...] more drinks on one occasion? Never 09/21/2023 Hunger Vital Sign Answer Date Recorded Within the past 12 months, y ou worried that your food would run out before you got the money to buy more. Never true 08/18/19 25 Within the past 12 months, t he food you bought just didn't last and you didn't have money to get more. Never true 08/17/2024 Personal Safety Answer Date Recorded Have you ever been in or are you currently in a harmful physical or emotional relationship or is someone making you feel afraid or unsafe? Denies 10/23/2023 Comments No Sex and Gender Information Value Date Recorded Sex Assigned at Not on file Legal Sex Female 3:27 AM RELIGIOUS EDUCATION DIRECTOR Gender Identity Not on file Sexual Orientation Not on file documented as of this encounter Plan of Treatment Not on file documented as of this encounter Procedures Procedure Name Priority Date/Time Associated Diagnosis Comments SCAN - LABS 08/17/2024 10:22 AM CDT documented in this encounter Results * SCAN - LABS (08/17/2024 10:22 AM CDT) Rachael Moncada RN Final Result documented in this encounter Visit Diagnoses Not on filedocumented in this encounter Care Teams Director Of Placement Relationship Specialty Start Date End Date Andrea Chandler MD PCP - General Internal Medicine 03/31/23 documented as of this encounter
--- OUTSIDE RECORDS SUMMARY | 2024-08-19 10:40 | XMS_ITS | Patient Health Record ---
Author Organization [facility] Address [address] [place] [address] Care Team Providers Care Occupational Therapy Specialist Name Role Phone Madeline Benton Primary Care [...] Insured Coverage Start Date Coverage End Date [facility] [address] [place] [address] [id number] Arti Corrigan Self - patient is the insured [employer] [place] [address] [place] [address] [id number] Arti Corrigan Self - patient is the insured Medical (General) History Medical History History ICD Code high blood pressure diabetes Surgical History Surgery Date(Month/Year) tonsils removed galbladder removed thumb
--- OUTSIDE RECORDS SUMMARY | 2024-08-19 10:40 | XMS_ITS | Clinical Summary ---
Author Organization [facility] Address [address] [address] Phone Care Team Providers Care Bus And Trolley Dispatcher Name Role Phone ShawnEmery squires Marian GRIFFIN Primary Care Provider [phone] Allergies No known active allergies Medications metFORMIN [...] on file Legal Sex Female 10:16 AM COMB TENDER Gender Identity Not on file Sexual Orientation [...] CHEST W/O CONTRAST Routine 04/13/2019 9:22 AM COMB TENDER Lung nodule < 6cm on CT from Last 3 Months or Most Recently Relevant to Health Maintenance Results * CT CHEST W/O CONTRAST (04/13/2019 9:22 AM COMB TENDER) Anatomical Region Laterality Modality Chest N/A Computed Tomogra phy 04/13/2019 9:40 AM COMB TENDER Impressions 04/13/2019 9:43 AM COMB TENDER IMPRESSION: 1. A 5 mm ground-glass nodule [...] as described above. Narrative 04/13/2019 9:43 AM COMB TENDER EXAM DESCRIPTION: CT CHEST W/O CONTRAST REASON [...] Rojelio Yun M.D. RL: DEVIN Report ID: [id number] Reading Location: [id number] Procedure Note Rojelio Yun MD - 04/13/2019 [...] Rojelio Yun M.D. RL: DEVIN Report ID: [id number] Reading Location: [id number] IMPRESSION: 1. A 5 mm ground-glass nodule [...] Insurance [place] [id number] Care Teams Bus And Trolley Dispatcher Relationship Specialty Start Date End Date Emery Higgins DO [address] [place] [address] PCP - General Internal Medicine 07/13/18
--- OUTSIDE RECORDS SUMMARY | 2024-08-19 10:40 | XMS_ITS | Encounter Summary ---
Author Organization [facility] Address [address] [place] [address] Phone Care Team Providers Care Supervisor Spinning Name Role Phone Andrea Chandler MD Primary Care Provider [phone] Encounter Details Date Type Department Care Team (Late st Contact Info) Description 08/17/2024 Orders Only [facility] Obstetrics and Gynecology [address] [facility] Advanced Medicine 13th [place] [address] [place] [address] ProviderRosa MD [address] [place] [address] Social History Tobacco Use Types Packs/Day Years [...] on file Legal Sex Female 3:27 AM METAL FABRICATOR WELDER Gender Identity Not on file Sexual Orientation Not on file documented as of this encounter Plan of Treatment Not on file documented as of this encounter Procedures Procedure Name Priority Date/Time Associated Diagnosis Comments MISC-ORDER Routine 08/17/2024 10:07 AM CDT documented in this encounter Results * MISC-ORDER (08/17/2024 10:07 AM CDT) Historical Provider LAB BLOOD ORDERABLES Jo l Result documented in this encounter Visit Diagnoses Not on filedocumented in this encounter Care Teams Supervisor Spinning Relationship Specialty Start Date End Date Andrea Chandler MD PCP - General Internal Medicine 03/31/23 documented as of this encounter
--- OUTSIDE RECORDS SUMMARY | 2024-08-19 10:40 | XMS_ITS | Encounter Summary ---
Author Organization [facility] Address [address] [place] [address] Phone Care Team Providers Care Aircraft Seat Upholsterer Name Role Phone Andrea Chandler MD Primary Care Provider [phone] Encounter Details Date Type Department Care Team (Late st Contact Info) Description 08/18/2024 Telephone [facility] Obstetrics and Gynecology [address] [facility] Advanced Medicine 13th [place] [address] [place] [address] Rachael Moncada, RN Social History Tobacco Use [...] on file Legal Sex Female 3:27 AM COMPUTER SYSTEMS ARCHITECT Gender Identity Not on file Sexual Orientation Not on file documented as of this encounter Miscellaneous Notes * Telephone Encounter - Rachael Moncada RN - 08/18/2024 3:08 PM CDT Called pt to assess after pt sent Inxerohart message stating she was having rectal bleeding. Pt states she has had episodes of rectal bleeding, bright red only when having a bowel movement over the last 2-3 days. No history of hemorrhoids that she is aware of and no pain when passing stool. No bleeding/spotting on underwear or at any other time except for with a BM. Unable to give an idea of amount of blood but water in toilet is red, not pink. Has been have BM's 1-2 times a day and they are soft, formed stool. Pt states she was feeling a little dizzy earlier. Pt is at home with her boyfriend present. Dizziness comes and goes today only. Feels she is drinking oral liquids in usual amount and is eating normally. Advised that we check a CBC to evaluate blood loss. Pt states she feels fine to go to lab, she willhave a food mobile driver. Lab orders for CBC sent to [facility] [place], [place]. She did not want to go today and get stuck in traffic so agreed to go tomorrow, 08/19/24. Will await results. Last colonoscopy was 10/2023 and normal, recommending routine f/u in 5 yrs. Educated on if bleeding increases or becomes SOB/lightheaded to go to local ER, pt agreed. documented in this encounter Plan of Treatment Not on file documented as of this encounter Visit Diagnoses Not on filedocumented in this encounter Care Teams Aircraft Seat Upholsterer Relationship Specialty Start Date End Date Andrea Chandler MD PCP - General Internal Medicine 03/31/23 documented as of this encounter
--- OUTSIDE RECORDS SUMMARY | 2024-08-19 10:40 | XMS_ITS | Encounter Summary ---
Author Organization [facility] Address [address] [place] [address] Phone Care Team Providers Care Certified Personal Chef Name Role Phone Andrea Chandler MD Primary Care Provider [phone] Encounter Details Date Type Department Care Team (Late st Contact Info) Description 08/18/2024 Orders Only [facility] Obstetrics and Gynecology [address] [facility] Advanced Medicine 13th [place] [address] [place] [phone] Rachael Moncada, NADEGE Endometrial cancer (HCC) (Primary Dx); Dizzy; Rectal bleeding Social History Tobacco Use Types Packs/Day Years [...] on file Legal 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 Gender Identity Not on file Sexual Orientation Not on file documented as of this encounter Plan of Treatment Scheduled Orders Name Type Priority Associated Diagnoses Orde r Schedule CBC with auto differential Lab Routine Endometrial cancer (HCC) Dizzy Rectal bleeding Expected: 08/18/2024 (Approximate), Expires: 08/18/2025 documented as of this encounter Visit Diagnoses Diagnosis Endometrial cancer (HCC)- Primary Malignant neoplasm of corpus uteri, except isthmus Dizzy Dizziness and giddiness Rectal bleeding Hemorrhage of rectum and anus documented in this encounter Care Teams Certified Personal Chef Relationship Specialty Start Date End Date Andrea Chandler MD PCP - General Internal Medicine 03/31/23 documented as of this encounter
--- OUTSIDE RECORDS SUMMARY | 2024-08-19 10:40 | XMS_ITS | Clinical Summary ---
Author Organization [facility] [address] Address [address] [place] [address] Care Team Providers Care Ham Marker Name Role Phone Andrea Chandler MD Primary Care Provider [phone] Allergies Active Allergy Reactions Criticality Noted Date [...] 1 capsule (75 mg total) by mouth mortgage loan funder before breakfast Active acetaminophen (TYLENOL) 500 mg [...] Encounters Date Type Department Care Team Description 08/18/2024 Telephone [facility] Obstetrics and Gynecology [facility] Advanced Medicine 13th [place] [address] Rachael Moncada RN 08/18/2024 Orders Only [facility] Obstetrics and Gynecology [address] [place] [address] 13th [place] [address] Rachael Moncada RN Endometrial cancer (HCC) (Primary Dx); Dizzy; Rectal bleeding 08/17/2024 1:[address] [facility] Gynecologic Oncology [place] [facility] ([facility]) [address] [place] [address] Endometrial cancer (HCC) (Primary Dx); Peritoneal carcinomatosis (HCC) 08/17/2024 Orders Only [facility] Rachael Moncada RN 08/17/2024 Orders Only [facility] Obstetrics and Gynecology [address] [place], [place] [address]th [place] [phone] Rosa Guevara MD 08/16/2024 Orders Only [facility] Rachael Moncada RN 08/05/2024 Orders Only [facility] Rachael Moncada RN Endometrial cancer (HCC) (Primary Dx) 08/02/2024 Orders Only [facility] Obstetrics and Gynecology [address] [place] [address] 13th [place] [address] Rachael Moncada, NADEGE Abnormal breast finding (Primary Dx); Abnormal mammogram of right breast; Abscess of right breast 08/02/2024 Orders Only [facility] Obstetrics and Gynecology [address] [place] [address] 13th [place] [phone] Rosa Guevara MD 08/01/2024 1:18 PM CDT - 08/01/2024 11:59 PM CDT Hospital Encounter [facility] - Breast Imaging [address] [facility] Floor [address] [place] [address] Abnormal mammogram Discharge Disposition: Discharge to home or self care 08/01/2024 1:18 PM CDT - 08/01/2024 11:59 PM CDT Hospital Encounter [facility] - Breast Imaging [address] [facility] Floor [address] [place] [address] Endometrial cancer (HCC); Abnormal breast finding Discharge Disposition: Discharge to home or self care 07/28/2024 Telephone [facility] Advanced [facility] ([facility]) [address] [place] [address] Sepideh Hernandez RN 07/27/2024 11:50 AM CDT - 07/27/2024 11:59 PM CDT Hospital Encounter [facility] ([facility]) [address] [place] [address] Abnormal mammogram Discharge Disposition: Discharge to home or self care 07/27/2024 11:30 AM CDT [facility] ([facility]) [address] [place] [address] Peritoneal carcinomatosis (HCC) (Primary Dx); Endometrial cancer (HCC); Encounter for preprocedural laboratory examination 07/27/2024 10:15 AM CDT Office Visit [facility] Obstetrics and Gynecology [address] [place] [address] Advanced Medicine 13th [place] [address] [place] [address] Quynh Mims MD Endometrial cancer (HCC) (Primary Dx); Encounter for preprocedural laboratory examination 07/27/2024 Telephone [facility] Advanced [facility] Breast [facility] ([facility]) [address] [place] [address] Enma Ortiz RN Appointment (Scheduling of breast biopsy) 07/27/2024 Telephone [facility] Advanced [facility] Breast [facility] ([facility]) [address] [place] [address] Enma Ortiz RN Appointment (Scheduling of breast biopsy) 07/27/2024 Telephone [facility] Breast [facility] ([facility]) [address] [place] [address] Enma Ortiz, NADEGE Appointment (Scheduling of breast biopsy) 07/27/2024 Documentation [facility] Obstetrics and Gynecology [address] [facility] for Advanced Medicine 13th [place] [phone] Rachael Moncada RN 07/27/2024 Orders Only [facility] Obstetrics and Gynecology [address] [place] [address] for Advanced Medicine 13th [place] [phone] Rachael Moncada RN Mass of temporal lobe (Primary Dx); Endometrial cancer (HCC) 07/27/2024 Orders Only [facility] Rachael Moncada RN 07/25/2024 Orders Only [facility] Liane Cooper RN 07/22/2024 Results Follow-Up [facility] Obstetrics and Gynecology [address] [place] [address] Advanced Medicine 13th [place] [address] Rachael Moncada, RN 07/21/2024 Telephone [facility] Obstetrics and Gynecology [address] [place] [address] Advanced Medicine 13th [place] [phone] Rachael Moncada, RN 07/20/2024 7:42 AM CDT - 07/20/2024 11:59 PM CDT Hospital Encounter [facility] Radiology [address] [place] [address] Quynh Mims MD Endometrial cancer (HCC); Frequent falls; Balance problem Discharge Disposition: Discharge to home or self care 07/15/2024 12:05 AM HOSPITALIST PHYSICIAN - 07/15/2024 11:59 PM HOSPITALIST PHYSICIAN Hospital Encounter [facility] ([facility]) [address] [place] [address] Discharge Disposition: Discharge to home or self care 07/15/2024 - 07/15/2024 11:59 PM HOSPITALIST PHYSICIAN Hospital Encounter [facility] ([facility]) [address] [place] [address] Discharge Disposition: Discharge to home or self care 07/06/2024 2:00 PM HOSPITALIST PHYSICIAN [facility] ([facility]) [address] [place] [address] Endometrial cancer (HCC) (Primary Dx) 07/06/2024 1:00 PM HOSPITALIST PHYSICIAN Office Visit [facility] Obstetrics and Gynecology [address] [place] [address] Advanced Medicine 13th [place] [address] Quynh Mims MD Endometrial cancer (HCC) 07/06/2024 9:39 AM HOSPITALIST PHYSICIAN - 07/06/2024 11:59 PM HOSPITALIST PHYSICIAN Hospital Encounter [facility] ([facility]) [address] [place] [address] Endometrial cancer (HCC); Chemotherapy management, encounter for Discharge Disposition: Discharge to home or self care 07/06/2024 Documentation [facility] Obstetrics and Gynecology [address] [place] [address] Advanced [place] [address] [place] [address] Rachael Moncada RN 07/06/2024 Orders Only [facility] Rachael Moncada RN Abnormal breast finding (Primary Dx); Endometrial cancer (HCC); Frequent falls; Balance problem 07/04/2024 Orders Only [facility] Rachael Moncada RN 06/15/2024 2:00 PM HOSPITALIST PHYSICIAN [facility] ([facility]) [address] [place] [address] Endometrial cancer (HCC) (Primary Dx) 06/15/2024 1:00 PM HOSPITALIST PHYSICIAN Office Visit [facility] Obstetrics and Gynecology [address] [place] [address] Advanced Medicine 13th [place] [address] Quynh Mims MD Endometrial cancer (HCC) 06/15/2024 Orders Only [facility] Rachael Moncada RN 06/13/2024 Orders Only [facility] Rachael Moncada, RN Endometrial cancer (HCC) (Primary Dx) 05/25/2024 10:00 AM HOSPITALIST PHYSICIAN Infusion [facility] Gynecologic Oncology [facility] ([facility]) [address] [place] [address] Endometrial cancer (HCC) (Primary Dx) 05/25/2024 9:15 AM HOSPITALIST PHYSICIAN Office Visit [facility] Obstetrics and Gynecology [address] [facility] Advanced Medicine 13th [place] [address] [place] [address] Quynh Mims MD Endometrial cancer (HCC) 05/25/2024 Orders Only [facility] Rachael Moncada RN Endometrial cancer (HCC) (Primary Dx); Chemotherapy management, encounter for 05/23/2024 Orders Only [facility] Rachael Moncada RN Endometrial cancer (HCC) (Primary Dx) from [...] on file Legal Sex Female 3:27 AM HOSPITALIST PHYSICIAN Gender Identity Not on file Sexual Orientation Not on file Obstetrics History Para Term AB IAB SAB Ectopic Multiple Livin g Live Births 1 1 Date Outcome GA Total Labor Labor/2nd/3rd Weight Sex Type Anes PTL Perla A1 A5 Name Clin Para Comments x1 Last Filed Vital Signs Vital Sign Reading Time Taken Comments Blood Pressure 135/61 08/17/2024 12:56 PM CDT Pulse 96 08/17/2024 12:56 PM CDT Temperature 36.7 C (98.1 F) 08/17/2024 12:56 PM CDT Respiratory Rate 18 08/17/2024 12:56 PM CDT Oxygen Saturation 100% 08/17/2024 12:56 PM CDT Inhaled Oxygen Concentration - - Weight 85.3 kg (188 lb) 08/17/2024 12:57 PM CDT Height 157.5 cm (5' 2.01 ) 07/27/2024 9:58 AM CD T Body Mass Index 34.38 07/27/2024 9:58 AM CDT Plan of Treatment [...] 02/13/1974 Well Visit 65+ 2022 Covid-19 Vaccine (2023-2 5 season) 2024 04/26/2021, 08/14/2020, 07/17/2020 Hemoglobin A1C 03/19/2024 09/17/2023, 04/17/2023 Fall Risk Assessment 10/22/2024 10/23/2023 Influenza Vaccine (Season Ended) 2025 03/06/2023, 02/11/2022, 01/31/2019, Additional history exists eGFR 01/11/2025 01/12/2024, 05/0 01/2024, 05/06/2023, Additional history exists Breast Cancer Screening-Mammogram 08/01/2025 025 Colon Cancer Screening-Colonoscopy 10/22/20332023 Medical Devices Implanted Type Area Oyster Shipper Device Identifier Shelf Expiration Date Model / Serial / Lot [employer] Excela Low Porfile Power Port 8fr 1.6mm 1 Lumen [id number] - [id number] Implanted:Qty: 1 on 05/06/2023 at [facility] [employer] 01/04/2028 [id number] / / [id number] Procedures Procedure Name Priority Date/Time Associated Diagnosis Comments SCAN - LABS 08/17/2024 10:22 AM CDT MISC-ORDER Routine 08/17/2024 10:07 AM CDT SCAN - LABS 08/16/2024 8:35 AM CDT SCAN - LABS 08/05/2024 5:58 PM CDT [...] US OUTSIDE REFERENCE Routine 07/15/2024 12:05 AM HOSPITALIST PHYSICIAN BREAST IMAGING MG DIAGNOSTIC OUTSIDE REFERENCE Routine 07/15/2024 12:00 AM HOSPITALIST PHYSICIAN SCAN - LABS 07/06/2024 11:[address] CHEST ABDOMEN PELVIS W CONTRAST Routine 07/06/2024 10:31 AM HOSPITALIST PHYSICIAN Endometrial cancer (HCC) Chemotherapy management, encounter for POCT CREATININE - DEVICE Routine 07/06/2024 10:11 AM HOSPITALIST PHYSICIAN SCAN - LABS 07/04/2024 5:29 PM HOSPITALIST PHYSICIAN SCAN - LABS 06/15/2024 5:37 PM HOSPITALIST PHYSICIAN SCAN - LABS 06/13/2024 11:26 AM HOSPITALIST PHYSICIAN SCAN - LABS 05/25/2024 11:12 AM HOSPITALIST PHYSICIAN SCAN - LABS 05/23/2024 6:14 PM HOSPITALIST PHYSICIAN EGFR Routine 01/12/2024 8:02 AM CDT Endometrial cancer (HCC) COLONOSCOPY 10/23/2023 8:19 AM CDT HEMOGLOBIN A1C Routine 09/17/2023 10:35 AM CDT Preoperative testing Diabetes mellitus without complication (HCC) from Last 3 Months or Most Recently Relevant to Health Maintenance Results * SCAN - LABS (08/17/2024 10:22 AM CDT) us Rachael Moncada RN Final Result * MISC-ORDER (08/17/2024 10:07 AM CDT) us Historical Provider LAB BLOOD ORDERABLES Jo l Result * SCAN - LABS (08/16/2024 8:35 AM CDT) Rachael Moncada RN Final Result * SCAN - LABS (08/05/2024 5:58 PM [...] RIGHT breast was performed by a trained pig lead melter helper and by Dr. Hampton . BREAST PARENCHYMAL [...] RIGHT breast was performed by a trained pig lead melter helper and by Dr. Hampton . BREAST PARENCHYMAL [...] it. Electronically signed by: Efrain Hampton MD Quynh Mims MD IMG MAMMO PROCEDURES Final [...] RIGHT breast was performed by a trained pig lead melter helper and by Dr. Hampton . BREAST PARENCHYMAL [...] RIGHT breast was performed by a trained pig lead melter helper and by Dr. Hampton . BREAST PARENCHYMAL [...] images may or may not represent the [employer] source data set and thus may contain [...] OF OUTSIDE IMAGING FACILITY PERFORMING OUTSIDE IMAGING: [facility] EXAM(S) REVIEWED: 1. BILATERAL DIAGNOSTIC MAMMOGRAM WITH [...] OF OUTSIDE IMAGING FACILITY PERFORMING OUTSIDE IMAGING: [facility] EXAM(S) REVIEWED: 1. BILATERAL DIAGNOSTIC MAMMOGRAM WITH [...] images may or may not represent the [employer] source data set and thus may contain [...] sec INR 1.26(H) 0.90 - 1.20 [facility] Comment: Interpretive data Oral anticoagulant therapeutic ranges: Venous thromboembolism prophylaxis or treatment: 2.0-3.0 CARDIOLOGY Standard range: 2.0-3.0 High-intensity range: 2.5-3.5 Refer to indication-specific guidelines for appropriate target ranges for prosthetic heart valve replacement. Current interpretive data was last revised on 2019. Blood 07/27/2024 11:4 1 AM CDT 07/27/2024 1:07 PM CDT us Quynh Mims MD LAB BLOOD ORDERABLES Final Result [facility] Department [place] [address] * SCAN - LABS (07/27/2024 9:02 AM [...] (Axial Sectra reconstruction images, image 102; Series 38107, image 19; Series 13175, image 71). Mild degree of scattered foci [...] (Axial Sectra reconstruction images, image 102; Series 91448, image 19; Series 98714, image 71). Mild degree of scattered foci [...] Imaging US Outside Reference (07/15/2024 12:05 AM HOSPITALIST PHYSICIAN) Impressions [facility] - 07/27/2024 2:25 PM CDT These images are for Reference purposes only and have not been reviewed by [facility] Radiology. There will be no report generated by a [facility] Radiologist. Narrative [facility] - 07/27/2024 2:25 PM CDT EXAMINATION: Images For Reference Purposes Only us Provider Transcribed Order IMG MAMMO PROCEDURES Final Result [facility] * Breast Imaging Diagnostic Outside Reference (07/15/2024 12:00 AM HOSPITALIST PHYSICIAN) Impressions [facility] - 07/27/2024 2:25 PM CDT These images are for Reference purposes only and have not been reviewed by [facility] Radiology. There will be no report generated by a [facility] Radiologist. Narrative [facility] - 07/27/2024 2:25 PM CDT EXAMINATION: Images For Reference Purposes Only us Provider Transcribed Order IMG MAMMO PROCEDURES Final Result [facility] * SCAN - LABS (07/06/2024 11:14 AM HOSPITALIST PHYSICIAN) Rachael Moncada RN Edited Resul t - Final * CT Chest Abdomen Pelvis W Contrast (07/06/2024 10:31 AM HOSPITALIST PHYSICIAN) Anatomical Region Laterality Modality Body N/A Computed Tomogra phy 07/06/2024 11:5 3 AM HOSPITALIST PHYSICIAN Impressions 07/06/2024 11:53 AM HOSPITALIST PHYSICIAN 1. Increased thickness of the endometrial cavity. [...] Bunny Jarvis M.D. Narrative 07/06/2024 11:53 AM HOSPITALIST PHYSICIAN EXAMINATION: Computed tomography of the chest, abdomen [...] exam. Electronically signed by: Bunny Jarvis M.D. Quynh Mims MD IMG CT PROCEDURES Fi nal Result * POCT creatinine (07/06/2024 10:11 AM HOSPITALIST PHYSICIAN) Creatinine POC 1.1 0.6 - 1.1 mg/dL Blood 07/06/2024 10:1 1 AM HOSPITALIST PHYSICIAN 07/06/2024 10:11 AM HOSPITALIST PHYSICIAN Quynh Mims MD LAB POCT ORDERABLES - DEVICE Final Result [facility] Department [place] [address] * SCAN - LABS (07/04/2024 5:29 PM HOSPITALIST PHYSICIAN) Rachael Moncada RN Edited Resul t - Final * SCAN - LABS (06/15/2024 5:37 PM HOSPITALIST PHYSICIAN) Rachael Moncada RN Edited Resul t - Final * SCAN - LABS (06/13/2024 11:26 AM HOSPITALIST PHYSICIAN) us Rachael Moncada RN Final Result * SCAN - LABS (05/25/2024 11:12 AM HOSPITALIST PHYSICIAN) Rachael Moncada RN Edited Resul t - Final * SCAN - LABS (05/23/2024 6:14 PM HOSPITALIST PHYSICIAN) us Rachael Moncada RN Final Result * [...] BLOOD ORDERABLES Final Result Performing Organization Address City/State/[facility] Co de Phone Number [facility] [address] Department [place] [address] * Colonoscopy (10/23/2023 8:19 AM CDT) Anatomical Region Laterality Modality Other Narrative Procedure Note Winston Aaron MD - 10/23/2023 8:19 AM CDT ENDOSCOPY LAB Patient Name: Arti Corrigan Procedure Date: 10/23/2023 8:19 AM Admit Type: Outpatient Room: [facility] Date of : 1955 Instrument [...] % Estimated Average Glucose 157 mg/dL [facility] Comment: The ADA recommends reporting an estimated [...] LAB BLOOD ORDERABLES Final Re sult [facility] Department [place] [address] from Last 3 Months or Most Recently Relevant to Health Maintenance Insurance [facility] MEDICARE [facility] MEDICARE [facility] Advance Directives For more information, please contact: [phone] * Full Code (Latest Code Status on File) Date Activated Date Inactivated Comments 10/23/2023 7:57 AM 10/23/2023 1:38 PM Care Teams Ham Marker Relationship Specialty Start Date End Date Andrea Chandler MD PCP - General Internal Medicine 03/31/23
--- OUTSIDE RECORDS SUMMARY | 2024-08-19 10:40 | XMS_ITS | Clinical Summary ---
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
--- OUTSIDE RECORDS SUMMARY | 2024-08-19 10:40 | XMS_ITS | Encounter Summary ---
Author Organization [facility] Address [address] [place] [address] Phone Care Team Providers Care Streetcar Repairer Helper Name Role Phone Andrea Chandler MD Primary Care Provider [phone] Encounter Details Date Type Department Care Team (Late st Contact Info) Description 07/22/2024 Results Follow[facility]Up [facility] Obstetrics and Gynecology [address] [facility] Advanced Medicine 13th [place] [address] [place] [phone] Rachael Moncada, RN Social History Tobacco Use [...] on file Legal Sex Female 3:27 AM IT 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 Pt reports her PCP (who was going [...] on filedocumented in this encounter Care Teams Streetcar Repairer Helper Relationship Specialty Start Date End Date Andrea Chandler MD PCP - General Internal Medicine 03/31/23 documented as of this encounter
--- OUTSIDE RECORDS SUMMARY | 2024-08-19 10:40 | XMS_ITS | Encounter Summary ---
Author Organization [facility] Address [facility] [place] [address] Care Team Providers Care Transfer Car Operator Drier Name Role Phone Unavailable Primary Care Provider Unavailabl e Encounter Details Date Type Department Care Team (Late st Contact Info) Description 10/16/2018 Abstract SFL CONVERSION [address] [place] [address] , Generic Conversion, Social History Tobacco Use Types Packs/Day Years Used Date Smoking Tobacco: Never Assessed Comments Unknown Sex and Gender Information Value Date Recorded Sex Assigned at Not on file Legal Sex Female 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
--- OUTSIDE RECORDS SUMMARY | 2024-08-19 10:40 | XMS_ITS ---
Author Organization [facility] [address] Address [address] [place] [address] Care Team Providers Care Clerk Supervisor Name Role Phone Andrea Chandler MD Primary Care Provider [phone] Active Problems Problem Noted Date Diagnosed Date [...] medications scheduled. Pembrolizumab 21 Day Cycles - TRAVEL ASSISTANT (Carbo Completed)* Plan Start Date:04/30/2023 Plan Provider:Quynh Mims MD Linked Problems Endometrial cancer (HCC) Treatment Medications Current Day (Day 1 , Cycle 23 - Planned for 09/07/2024) Next Day (Day 1, Cycle 24 - Planned for 09/28/2024) CARBOplatin (PARAPLATIN) IVP B in 250 mL [...]
--- OUTSIDE RECORDS SUMMARY | 2024-08-19 10:40 | XMS_ITS | Referral Summary ---
Author Organization [facility] [address] Address [address] [place] [address] Care Team Providers Care Mint Wafer Depositor Name Role Phone Andrea Chandler MD Primary Care Provider [phone] Encounters Date Type Department Care Team Description 08/18/2024 Telephone [facility] Obstetrics and Gynecology [facility] Advanced Medicine 13th [place] [address] Rachael Moncada RN 08/18/2024 Orders Only [facility] Obstetrics and Gynecology [facility] 13th [place] [address] Rachael Moncada, RN Endometrial cancer (HCC) (Primary Dx); Dizzy; Rectal bleeding 08/17/2024 Orders Only [facility] Rachael Moncada RN 08/17/2024 Orders Only [facility] Obstetrics and Gynecology [address] [place] [address] Advanced Medicine 13th [place] [address] Rosa Guevara MD 08/17/2024 1:00 PM CDT Infusion [facility] Advanced Medicine Gynecologic Oncology [facility] ([facility] [address] [place] [address] Endometrial cancer (HCC) (Primary Dx); Peritoneal carcinomatosis (HCC) 08/16/2024 Orders Only [facility] Rachael Moncada, RN 08/05/2024 Orders Only [facility] Rachael Moncada, RN Endometrial cancer (HCC) (Primary Dx) 08/02/2024 Orders Only [facility] Obstetrics and Gynecology [address] [place] [address] Advanced Medicine 13th [place] [address] [place] [address] Rachael Moncada RN Abnormal breast finding (Primary Dx); Abnormal mammogram of right breast; Abscess of right breast 08/02/2024 Orders Only [facility] Obstetrics and Gynecology [address] [facility] 13th [place] [address] [place] [address] ProviderRosa MD 08/01/2024 1:18 PM CDT - 08/01/2024 11:59 PM CDT Hospital Encounter [facility] - Breast Imaging [facility] Floor 8 [place] [address] Abnormal mammogram Discharge Disposition: Discharge to home or self care 08/01/2024 1:18 PM CDT - 08/01/2024 11:59 PM CDT Hospital Encounter [facility] - Breast Imaging [address] [place] [address] Floor 8 [place] [address] Endometrial cancer (HCC); Abnormal breast finding Discharge Disposition: Discharge to home or self care 07/28/2024 Telephone [facility] ([facility]) [address] [place] [address] Sepideh Hernandez RN 07/27/2024 Telephone [facility] ([facility]) [address] [place] [address] Enma Oritz RN Appointment (Scheduling of breast biopsy) 07/27/2024 Telephone [facility] ([facility]) [address] [place] [address] Enma Ortiz RN Appointment (Scheduling of breast biopsy) 07/27/2024 Telephone [facility] ([facility]) [address] [place] [address] Enma Ortiz RN Appointment (Scheduling of breast biopsy) 07/27/2024 11:50 AM CDT - 07/27/2024 11:59 PM CDT Hospital Encounter [facility] ([facility]) [address] [place] [address] Abnormal mammogram Discharge Disposition: Discharge to home or self care 07/27/2024 Documentation [facility] Obstetrics and Gynecology [address] [facility] Advanced [facility] 13th [place] [address] Rachael Moncada, NADEGE 07/27/2024 Orders Only [facility] Obstetrics and Gynecology [address] [place], [place] [address]th [place] [address] Rachael Moncada RN Mass of temporal lobe (Primary Dx); Endometrial cancer (HCC) 07/27/2024 Orders Only OB ONCOLOGY Rachael Moncada RN 07/27/2024 11:[address] [facility] Gynecologic Oncology [facility] Advanced [facility] ([facility]) [address] [place] [address] Peritoneal carcinomatosis (HCC) (Primary Dx); Endometrial cancer (HCC); Encounter for preprocedural laboratory examination 07/27/2024 10:15 AM CDT Office Visit [facility] Obstetrics and Gynecology [address] [place], [place] [address] [place] [address] Quynh Mims MD Endometrial cancer (HCC) (Primary Dx); Encounter for preprocedural laboratory examination 07/25/2024 Orders Only [facility] Liane Cooper RN 07/22/2024 Results Follow-Up [facility] Obstetrics and Gynecology [address] [place], [place] [address]th [place] [address] Rachael Moncada, RN 07/21/2024 Telephone [facility] Obstetrics and Gynecology [address] [place] [address] 13th [place] [address] Rachael Moncada, RN 07/20/2024 7:42 AM CDT - 07/20/2024 11:59 PM CDT Hospital Encounter [facility] Radiology [address] [place] [address] Quynh Mims MD Endometrial cancer (HCC); Frequent falls; Balance problem Discharge Disposition: Discharge to home or self care 07/15/2024 12:05 AM METAL FURRER - 07/15/2024 11:59 PM METAL FURRER Hospital Encounter [facility] ([facility]) [address] [place] [address] Discharge Disposition: Discharge to home or self care 07/15/2024 - 07/15/2024 11:59 PM METAL FURRER Hospital Encounter [facility] ([facility]) [address] [place] [address] Discharge Disposition: Discharge to home or self care 07/06/2024 Documentation [facility] Obstetrics and Gynecology [address] [place] [address] for Advanced Medicine 13th [place] [address] Rachael Moncada RN 07/06/2024 Orders Only [facility] Rachael Moncada RN Abnormal breast finding (Primary Dx); Endometrial cancer (HCC); Frequent falls; Balance problem 07/06/2024 2:00 PM METAL FURRER [facility] ([facility]) [address] [place] [address] Endometrial cancer (HCC) (Primary Dx) 07/06/2024 1:00 PM METAL FURRER Office Visit [facility] Obstetrics and Gynecology [address] [place] [address] Advanced Medicine 13th [place] [address] Quynh Mims MD Endometrial cancer (HCC) 07/06/2024 9:39 AM METAL FURRER - 07/06/2024 11:59 PM METAL FURRER Hospital Encounter [facility] ([facility]) [address] [place] [address] Endometrial cancer (HCC); Chemotherapy management, encounter for Discharge Disposition: Discharge to home or self care 07/04/2024 Orders Only [facility] Rachael Moncada RN 06/15/2024 Orders Only [facility] Rachael Rm RN 06/15/2024 2:00 PM METAL FURRER [facility] ([facility]) [address] [place] [address] Endometrial cancer (HCC) (Primary Dx) 06/15/2024 1:00 PM METAL FURRER Office Visit [facility] Obstetrics and Gynecology [address] [facility] 13th [place] [address] [place] [address] Quynh Mims MD Endometrial cancer (HCC) 06/13/2024 Orders Only [facility] Rachael Moncada RN Endometrial cancer (HCC) (Primary Dx) 05/25/2024 Orders Only [facility] Rachael Moncada RN Endometrial cancer (HCC) (Primary Dx); Chemotherapy management, encounter for 05/25/2024 9:15 AM METAL FURRER Office Visit [facility] Obstetrics and Gynecology [address] [facility] 13th [place] [address] [place] [address] Quynh Mims MD Endometrial cancer (HCC) 05/25/2024 10:[address] [facility] Gynecologic Oncology [facility] ([facility]) [address] [place] [address] Endometrial cancer (HCC) (Primary Dx) 05/23/2024 Orders Only [facility] Rachael [...] 1 capsule (75 mg total) by mouth public health social worker before breakfast Active acetaminophen (TYLENOL) 500 mg [...] file Legal Sex Female 3:27 AM METAL FURRER Gender Identity Not on file Sexual Orientation [...] on file Medical Devices Implanted Type Area Recapper Device Identifier Shelf Expiration Date Model / Serial / Lot [employer] Excela Low Porfile Power Port 8fr 1.6mm 1 Lumen [id number] - [id number] Implanted:Qty: 1 on 05/06/2023 at [facility] [employer] 01/04/2028 [id number] / / [id number] Procedures Procedure Name Priority Date/Time Associated Diagnosis [...] US OUTSIDE REFERENCE Routine 07/15/2024 12:05 AM METAL FURRER BREAST IMAGING MG DIAGNOSTIC OUTSIDE REFERENCE Routine 07/15/2024 12:00 AM METAL FURRER SCAN - LABS 07/06/2024 11:[address] CHEST ABDOMEN PELVIS W CONTRAST Routine 07/06/2024 10:31 AM METAL FURRER Endometrial cancer (HCC) Chemotherapy management, encounter for POCT CREATININE - DEVICE Routine 07/06/2024 10:11 AM METAL FURRER SCAN - LABS 07/04/2024 5:29 PM METAL FURRER SCAN - LABS 06/15/2024 5:37 PM METAL FURRER SCAN - LABS 06/13/2024 11:26 AM METAL FURRER SCAN - LABS 05/25/2024 11:12 AM METAL FURRER SCAN - LABS 05/23/2024 6:14 PM METAL FURRER EGFR Routine 01/12/2024 8:02 AM CDT Endometrial cancer (HCC) COLONOSCOPY 10/23/2023 8:19 AM CDT HEMOGLOBIN A1C Routine 09/17/2023 10:35 AM CDT Preoperative testing Diabetes mellitus without complication (HCC) from Last 3 Months or Most Recently Relevant to Health Maintenance Results * SCAN - LABS (08/17/2024 10:22 AM CDT) us Rachael Moncada RN Final Result * MISC-ORDER (08/17/2024 10:07 AM CDT) Historical [...] RIGHT breast was performed by a trained android software engineer and by Dr. Hampton . [...] RIGHT breast was performed by a trained android software engineer and by Dr. Hampton . [...] RIGHT breast was performed by a trained android software engineer and by Dr. Hampton . [...] RIGHT breast was performed by a trained android software engineer and by Dr. Hampton . [...] images may or may not represent the [place] source data set and thus may contain [...] OF OUTSIDE IMAGING FACILITY PERFORMING OUTSIDE IMAGING: [facility] EXAM(S) REVIEWED: 1. BILATERAL DIAGNOSTIC MAMMOGRAM WITH [...] OF OUTSIDE IMAGING FACILITY PERFORMING OUTSIDE IMAGING: [facility] EXAM(S) REVIEWED: 1. BILATERAL DIAGNOSTIC MAMMOGRAM WITH [...] images may or may not represent the [place] source data set and thus may contain [...] sec INR 1.26(H) 0.90 - 1.20 [facility] Comment: Interpretive data Oral anticoagulant therapeutic ranges: Venous thromboembolism prophylaxis or treatment: 2.0-3.0 CARDIOLOGY Standard range: 2.0-3.0 High-intensity range: 2.5-3.5 Refer to indication-specific guidelines for appropriate target ranges for prosthetic heart valve replacement. Current interpretive data was last revised on 2019. Blood 07/27/2024 11:4 1 AM CDT 07/27/2024 1:07 PM CDT us Quynh Mims MD LAB BLOOD ORDERABLES Final Result [facility] Department [place] [address] * SCAN - LABS (07/27/2024 9:02 AM [...] (Axial Sectra reconstruction images, image 102; Series 56888, image 19; Series 15842, image 71). Mild degree of scattered foci [...] (Axial Sectra reconstruction images, image 102; Series 82756, image 19; Series 09292, image 71). Mild degree of scattered foci [...] Imaging US Outside Reference (07/15/2024 12:05 AM METAL FURRER) Impressions [facility] - 07/27/2024 2:25 PM CDT These images are for Reference purposes only and have not been reviewed by [facility] Radiology. There will be no report generated by a [facility] Radiologist. Narrative [facility] - 07/27/2024 2:25 PM CDT EXAMINATION: Images For Reference Purposes Only us Provider Transcribed Order IMG MAMMO PROCEDURES Final Result [facility] * Breast Imaging Diagnostic Outside Reference (07/15/2024 12:00 AM METAL FURRER) Impressions [facility] - 07/27/2024 2:25 PM CDT These images are for Reference purposes only and have not been reviewed by [facility] Radiology. There will be no report generated by a [facility] Radiologist. Narrative [facility] - 07/27/2024 2:25 PM CDT EXAMINATION: Images For Reference Purposes Only us Provider Transcribed Order IMG MAMMO PROCEDURES Final Result [facility] * SCAN - LABS (07/06/2024 11:14 AM METAL FURRER) Rachael Moncada RN Edited Resul t - Final * CT Chest Abdomen Pelvis W Contrast (07/06/2024 10:31 AM METAL FURRER) Anatomical Region Laterality Modality Body N/A Computed Tomogra phy 07/06/2024 11:5 3 AM METAL FURRER Impressions 07/06/2024 11:53 AM METAL FURRER 1. Increased thickness of the endometrial cavity. [...] Bunny Jarvis M.D. Narrative 07/06/2024 11:53 AM METAL FURRER EXAMINATION: Computed tomography of the chest, abdomen [...] Electronically signed by: Bunny Jarvis M.D. Result [facility] Quynh Mims MD IMG CT PROCEDURES Fi nal Result * POCT creatinine (07/06/2024 10:11 AM METAL FURRER) Creatinine POC 1.1 0.6 - 1.1 mg/dL Blood 07/06/2024 10:1 1 AM METAL FURRER 07/06/2024 10:11 AM METAL FURRER Result [facility] Quynh Mims MD LAB POCT ORDERABLES - DEVICE Final Result [facility] Department [place] [address] * SCAN - LABS (07/04/2024 5:29 PM METAL FURRER) Rachael Moncada RN Edited Resul t - Final * SCAN - LABS (06/15/2024 5:37 PM METAL FURRER) Rachael Moncada RN Edited Resul t - Final * SCAN - LABS (06/13/2024 11:26 AM METAL FURRER) us Rachael Moncada RN Final Result * SCAN - LABS (05/25/2024 11:12 AM METAL FURRER) Rachael L. Crader RN Edited Resul t - Final * SCAN - LABS (05/23/2024 6:14 PM METAL FURRER) us Rachael Moncada RN Final Result * [...] MD LAB BLOOD ORDERABLES Final Result [facility] [address] Department [place] [address] * Colonoscopy (10/23/2023 8:19 AM CDT) Anatomical Region Laterality Modality Other Narrative Procedure Note Winston Aaron MD - 10/23/2023 8:19 AM CDT ENDOSCOPY LAB Patient Name: Arti Corrigan Procedure Date: 10/23/2023 8:19 AM Admit Type: Outpatient Room: [facility] Date of : 1955 Instrument Name: [...] % Estimated Average Glucose 157 mg/dL [facility] Comment: The ADA recommends reporting an [...] NP LAB BLOOD ORDERABLES Final Re sult [facility] Department [place] [address] from Last 3 Months or Most Recently Relevant to Health Maintenance Insurance [facility] MEDICARE [facility] Address: [address] [address] [place] [address] [facility] MEDICARE [facility] Address: [address] [address] [place] [address] [employer] Advance Directives For more information, please contact: [phone] * Full Code (Latest Code Status on File) Date Activated Date Inactivated Comments 10/23/2023 7:57 AM 10/23/2023 1:38 PM Care Teams Mint Wafer Depositor Relationship Specialty Start Date End Date Andrea Chandler MD PCP - General Internal Medicine 03/31/23
[2024-08-19 10:49] LABS: Mean Corpuscular HGB Conc 31.2 g/dL (32-36); Mean Corpuscular Hemoglobin 29.7 pg (27.0-31.0); Mean Corpuscular Volume 95.2 fL (78.0-102.0); Mean Platelet Volume 11.4 fl (9.2-11.8); Platelet Count Result 197 K/mm3 (150-420); Red Blood Count 1.65 M/mm3 (4.20-5.40); Red Cell Distribution Width 16.7 % (11.6-14.4); White Blood Count 10.8 K/mm3 (4.8-10.8)
[2024-08-19 11:01] LABS: Hematocrit 15.7 % (35.0-42.0); Hemoglobin 4.9 g/dL (11.7-13.8)
[2024-08-19 12:29] LABS: Band Neutrophils Percent 3 % (0-6); Basophils Percent Manual 0 % (0-1); Eosinophils Percent Manual 0 % (1-6); Lymphocytes Absolute Manual 3.13 K/mm3 (1.1-4.5); Lymphocytes Percent Manual 29 % (18-44); Monocytes Absolute Manual 0.43 K/mm3 (0.1-0.90); Monocytes Percent Manual 4 % (3-9); Neutrophils Absolute Manual 7.23 K/mm3 (1.7-7.2); Neutrophils Percent Manual 64 % (46-73); Platelet Estimate Adequate (Adequate); Total Cells Counted 100
== END 2024-08-19 10:04 | disposition home or self-care (01) ==
LOC: CHSLAB 10:05
PROVIDERS: PCP Internal Medicine
DX: C54.1 Malignant neoplasm of endometrium (principal); R42 Dizziness and giddiness; K62.5 Hemorrhage of anus and rectum
CPT/HCPCS: 36415; 85025

== ENCOUNTER 2024-09-05 10:09 | Outpatient (CLI) | payer MEDICARE, SELFPAY ==
[2024-09-05 11:25] LABS: Basophils Absolute Auto 0.07 K/mm3 (0.00-0.10); Basophils Percent Auto 0.8 % (0.0-1.0); Eosinophils Absolute Auto 0.36 K/mm3 (0.02-0.50); Hematocrit 30.5 % (35.0-42.0); Hemoglobin 9.4 g/dL (11.7-13.8); Immature Granulocyte Absolute 0.07 K/mm3 (0.00-0.00); Immature Granulocyte Percent A 0.8 % (0.0-0.0); Lymphocytes Absolute Auto 1.73 K/mm3 (1.10-4.50); Mean Corpuscular HGB Conc 30.8 g/dL (32-36); Mean Corpuscular Hemoglobin 27.6 pg (27.0-31.0); Mean Corpuscular Volume 89.7 fL (78.0-102.0); Mean Platelet Volume 11.9 fl (9.2-11.8); Monocytes Absolute Auto 0.66 K/mm3 (0.10-0.90); Monocytes Percent Auto 7.2 % (2.0-11.0); Neutrophils Absolute Auto 6.22 K/mm3 (1.70-7.20); Neutrophils Percent Auto 68.2 % (50.0-70.0); Platelet Count Result 260 K/mm3 (150-420); Red Cell Distribution Width 14.6 % (11.6-14.4); White Blood Count 9.1 K/mm3 (4.8-10.8)
--- OUTSIDE RECORDS SUMMARY | 2024-09-05 11:35 | XMS_ITS | Patient Health Record ---
Author Organization [facility] Address [address] [place] [address] Care Team Providers Care Screen Printing Supervisor Name Role Phone Madeline Benton Primary Care [...] Insured Coverage Start Date Coverage End Date [facility] [address] [place] [address] [id number] Arti Corrigan Self - patient is the insured Dental [employer] [place] [address] [place] [address] [id number] Arti Corrigan Self - patient is the insured Medical (General) History Medical History History ICD Code high blood pressure diabetes Surgical History Surgery Date(Month/Year) tonsils removed galbladder removed thumb
--- OUTSIDE RECORDS SUMMARY | 2024-09-05 11:35 | XMS_ITS | Encounter Summary ---
Author Organization [facility] Address [facility] [place] [address] Care Team Providers Care Bacteriologist Industrial Name Role Phone Unavailable Primary Care Provider Unavailabl e Encounter Details Date Type Department Care Team (Late st Contact Info) Description 10/16/2018 Abstract SFL CONVERSION [address] [place] [address] , Generic Conversion, Social History Tobacco Use Types Packs/Day Years Used Date Smoking Tobacco: Never Assessed Comments Unknown Sex and Gender Information Value Date Recorded Sex Assigned at Not on file Legal Sex Female 5:43 PM NEWSPAPER STUFFER Gender Identity Not on file Sexual Orientation Not on file documented as of this encounter Plan of Treatment Not on file documented as of this encounter Visit Diagnoses Not on filedocumented in this encounter
--- OUTSIDE RECORDS SUMMARY | 2024-09-05 11:35 | XMS_ITS | Clinical Summary ---
Author Organization [facility] Address [facility] [place] [address] Care Team Providers Care Painter Bottom Name Role Phone Unavailable Primary Care Provider Unavailabl e Social History Tobacco Use Types Packs/Day Years Used Date Smoking Tobacco: Never Assessed Comments Unknown Sex and Gender Information Value Date Recorded Sex Assigned at Not on file Legal Sex Female 5:43 PM CARDIOLOGY TECH Gender Identity Not on file Sexual Orientation Not on file Plan of Treatment Health Maintenance Due Date Last Done Comments Colorectal Cancer Screening Colonoscopy (10 Years) 1955 Hepatitis C 1975 DTaP, Tdap and Td Vaccines ( 1 - Tdap) 02/13/1976 Mammogram Screening 1997 Pneumococcal Vaccine: 50+ Ye ars (1 of 1 - PCV) 2007 Zoster Vaccines (1 of 2) 2007 Dexa Scan (General) 2022 COVID-19 Vaccine ( - 2023-2 5 [...]
--- OUTSIDE RECORDS SUMMARY | 2024-09-05 11:36 | XMS_ITS | Encounter Summary ---
Author Organization [facility] Address [address] [place] [address] Phone Care Team Providers Care Hotel Operations Manager Name Role Phone Andrea Chandler MD Primary Care Provider [phone] Encounter Details Date Type Department Care Team (Late st Contact Info) Description 08/27/2024 Results Follow-Up [facility] Gastroenterology [address] [facility] 12th [place] [address] [place] [address] Darius Lindo MD [address] [facility] [address] [place] [address] Social History Tobacco Use Types Packs/Day Years [...] making you feel afraid or unsafe? Denies 08/22/2024 Comments No Sex and Gender Information Value Date Recorded Sex Assigned at Not on file Legal Sex Female 3:27 AM CORNER BLOCK CUTTER Gender Identity Not on file Sexual Orientation Not on file documented as of this encounter Plan of Treatment Not on file documented as of this encounter Visit Diagnoses Not on filedocumented in this encounter Care Teams Hotel Operations Manager Relationship Specialty Start Date End Date Andrea Chandler MD PCP - General Internal Medicine 03/31/23 documented as of this encounter
--- OUTSIDE RECORDS SUMMARY | 2024-09-05 11:36 | XMS_ITS ---
Author Organization [facility] [address] Address [address] [place] [address] Care Team Providers Care Pediatric Neuropsychologist Name Role Phone Andrea Chandler MD Primary Care Provider [phone] Active Problems Problem Noted Date Diagnosed Date Rectal bleeding 08/19/2024 Peritoneal carcinomatosis 11/06/2023 Type 2 diabetes mellitus [...] Provider:Quynh Mims MD Linked Problems Endometrial cancer (HCC)Abrbara toneal carcinomatosis (HCC) Treatment Medications No medications scheduled. Pembrolizumab 21 Day Cycles - IMPORT/EXPORT CLERK (Carbo Completed)* Plan Start Date:04/30/2023 Plan Provider:Quynh [...] 1 mGy 1 mGy 0 mGy DLP 3,538 mGycm 3,538 mGycm 0 mGycm
--- OUTSIDE RECORDS SUMMARY | 2024-09-05 11:36 | XMS_ITS | Encounter Summary ---
Author Organization [facility] Address [address] [place] [address] Phone Care Team Providers Care Mechanical Supervisor Name Role Phone Andrea Chandler MD Primary Care Provider [phone] Encounter Details Date Type Department Care Team (Late st Contact Info) Description 07/22/2024 Results Follow-Up [facility] Obstetrics and Gynecology [address] [facility] Advanced Medicine 13th [place] [address] [place] [address] Rachael Moncada, RN Social History Tobacco Use [...] on file Legal Sex Female 3:27 AM RESPITE CARE PROVIDER Gender Identity Not on file Sexual Orientation [...] Inquired about her breast biopsy at local [facility]. Pt reports her PCP (who was [...] on filedocumented in this encounter Care Teams Mechanical Supervisor Relationship Specialty Start Date End Date Andrea Chandler MD PCP - General Internal Medicine 03/31/23 documented as of this encounter
--- OUTSIDE RECORDS SUMMARY | 2024-09-05 11:36 | XMS_ITS | Referral Summary ---
Author Organization [facility] [address] Address [address] [place] [address] Care Team Providers Care Auto Striper Name Role Phone Andrea Chandler MD Primary Care Provider Encounters Date Type Department Care Team Description 08/27/2024 Results Follow-Up [facility] Gastroenterology [address] [facility] 12th [place] [address] [place] [address] Darius Lindo MD 08/22/2024 9:46 AM CDT Anesthesia Event [facility] Digestive Disease [place] [address] [place] [address] Gavin Jaimes MD Schappe, Elizabeth Mary, CRNA 08/22/2024 10:45 AM CDT - 08/22/2024 11:[address] [facility] Digestive Disease [place] [id number] [place] [address] Darius Lindo MD COLON REMOVAL SNARE 08/19/2024 1:01 PM CDT - 08/22/2024 2:44 PM CDT Hospital Encounter [facility] 1 [place] [address] Quynh Mims MD Rectal bleeding (Primary Dx) Discharge Disposition: Discharge to home or self care 08/19/2024 Orders Only [facility] Caridad Casanova RN 08/19/2024 Telephone [facility] Obstetrics and Gynecology [address] [facility] 13th [place] [address] [place] [address] Rachael Moncada RN 08/18/2024 Telephone [facility] Obstetrics and Gynecology [address] [place] [address] 13th [place] [id number] Rachael Moncada RN 08/18/2024 Orders Only [facility] Obstetrics and Gynecology [address] [place] [address] 13th [place] [address] Rachael Moncada RN Endometrial cancer (HCC) (Primary Dx); Dizzy; Rectal bleeding 08/17/2024 Orders Only [facility] Rachael Moncada RN 08/17/2024 Orders Only [facility] Obstetrics and Gynecology [address] [place], [place] [address]th [place] [address] Rosa Guevara MD 08/17/2024 1:00 PM CDT [facility] Gynecologic Oncology [facility] ([facility]) [address] [place] [address] Endometrial cancer (HCC) (Primary Dx); Peritoneal carcinomatosis (HCC) 08/16/2024 Orders Only [facility] Rachael Moncada RN 08/05/2024 Orders Only [facility] Rachael Moncada RN Endometrial cancer (HCC) (Primary Dx) 08/02/2024 Orders Only [facility] Obstetrics and Gynecology [address] [place] [address] 13th [place] [address] Rachael Moncada, RN Abnormal breast finding (Primary Dx); Abnormal mammogram of right breast; Abscess of right breast 08/02/2024 Orders Only [facility] Obstetrics and Gynecology [address] [place] [address] 13th [place] [address] Rosa Guevara MD 08/01/2024 1:18 PM CDT - 08/01/2024 11:59 PM CDT Hospital Encounter [facility] - Breast Imaging [address] [facility] Floor 8 [place] [address] Abnormal mammogram Discharge Disposition: Discharge to home or self care 08/01/2024 1:18 PM CDT - 08/01/2024 11:59 PM CDT Hospital Encounter [facility] [place] - Breast Imaging [address] [facility] Floor 8 [place] [address] Endometrial cancer (HCC); Abnormal breast finding Discharge Disposition: Discharge to home or self care 07/28/2024 Telephone [facility] Advanced [facility] ([facility]) [address] [place] [address] Sepideh Hernandez RN 07/27/2024 Telephone [facility] Advanced [facility] Breast [facility] ([facility]) [address] [place] [address] Enma Ortiz RN Appointment (Scheduling of breast biopsy) 07/27/2024 Telephone [facility] Advanced [facility] Breast [facility] ([facility]) [address] [place] [address] Enma Ortiz RN Appointment (Scheduling of breast biopsy) 07/27/2024 Telephone [facility] Breast [facility] ([facility]) [address] [place] [address] Enma Ortiz RN Appointment (Scheduling of breast biopsy) 07/27/2024 11:50 AM CDT - 07/27/2024 11:59 PM CDT Hospital Encounter [facility] Rad[facility] ([facility]) [address] [place] [address] Abnormal mammogram Discharge Disposition: Discharge to home or self care 07/27/2024 Documentation [facility] Obstetrics and Gynecology [address] [place] [address] Advanced Medicine 13th [place] [phone] Rachael Moncada RN 07/27/2024 Orders Only [facility] Obstetrics and Gynecology [address] [place] [address] Advanced [facility] 13th [place] [phone] Rachael Moncada, RN Mass of temporal lobe (Primary Dx); Endometrial cancer (HCC) 07/27/2024 Orders Only OB ONCOLOGY Rachael Moncada RN 07/27/2024 11:30 AM CDT [facility] ([facility] [address] [place] [address] Peritoneal carcinomatosis (HCC) (Primary Dx); Endometrial cancer (HCC); Encounter for preprocedural laboratory examination 07/27/2024 10:15 AM CDT Office Visit [facility] Obstetrics and Gynecology [address] [place] [address] Advanced Medicine 13th [place] [address] Quynh Mims MD Endometrial cancer (HCC) (Primary Dx); Encounter for preprocedural laboratory examination 07/25/2024 Orders Only [facility] CooperLiane RN 07/22/2024 Results Follow-Up [facility] Obstetrics and Gynecology [address] [place] [address] Advanced [facility] 13th [place] [address] Rachael Moncada RN 07/21/2024 Telephone [facility] Obstetrics and Gynecology [address] [place] [address] Advanced [facility] 13th [place] [address] Rachael Moncada RN 07/20/2024 7:42 AM CDT - 07/20/2024 11:59 PM CDT Hospital Encounter [facility] Radiology 1 [place] [address] Quynh Mims MD Endometrial cancer (HCC); Frequent falls; Balance problem Discharge Disposition: Discharge to home or self care 07/15/2024 12:05 AM PRECISION AGRICULTURE SPECIALIST - 07/15/2024 11:59 PM PRECISION AGRICULTURE SPECIALIST Hospital Encounter [facility] ([facility]) [address] [place] [address] Discharge Disposition: Discharge to home or self care 07/15/2024 - 07/15/2024 11:59 PM PRECISION AGRICULTURE SPECIALIST Hospital Encounter [facility] Rad[facility]) [address] [place] [address] Discharge Disposition: Discharge to home or self care 07/06/2024 Documentation [facility] Obstetrics and Gynecology [address] [facility] 13th [place] [address] Rachael Moncada RN 07/06/2024 Orders Only [facility] Rachael Moncada RN Abnormal breast finding (Primary Dx); Endometrial cancer (HCC); Frequent falls; Balance problem 07/06/2024 2:00 PM PRECISION AGRICULTURE SPECIALIST [facility] ([facility]) [address] [place] [address] Endometrial cancer (HCC) (Primary Dx) 07/06/2024 1:00 PM PRECISION AGRICULTURE SPECIALIST Office Visit [facility] Obstetrics and Gynecology [address] [place] [address] [facility] 13th [place] [address] Quynh Mims MD Endometrial cancer (HCC) 07/06/2024 9:39 AM PRECISION AGRICULTURE SPECIALIST - 07/06/2024 11:59 PM PRECISION AGRICULTURE SPECIALIST Hospital Encounter [facility] [place] [facility] ([facility]) [address] [place] [address] Endometrial cancer (HCC); Chemotherapy management, encounter for Discharge Disposition: Discharge to home or self care 07/04/2024 Orders Only Rachael Sena RN 06/15/2024 Orders Only Rachael Sena RN 06/15/2024 2:00 PM PRECISION AGRICULTURE SPECIALIST 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 Apply to damp skin, lather, leave on 5 minutes, and rinse 120 mL 1 4 Active insulin glargine 100 unit/mL (3 mL) pen [...] mouth daily 30 tablet 4 5 Active polyethylene glycol (GoLYTELY) 236-22.74-6.74 -5.86 gram [...] ELSE UNTIL AFTER YOUR TEST 4000 mL 05/24/ 025 Discontin ued(Stop Taking at Discharge ) Active Problems Problem Noted Date Diagnosed [...] on file Legal Sex Female 3:27 AM PRECISION AGRICULTURE SPECIALIST Gender Identity Not on file Sexual Orientation Not on file Last Filed Vital Signs Vital Sign Reading Time Taken Comments Blood Pressure 107/64 08/22/2024 1:15 PM CDT Pulse 87 08/22/2024 1:15 PM CDT Temperature 36.6 C (97.9 F) 08/22/2024 11:35 AM CDT Respiratory Rate 18 08/22/2024 11:35 AM CDT Oxygen Saturation 95% 08/22/2024 1:15 PM CDT Inhaled Oxygen Concentration - - Weight 84.1 kg (185 lb 6.4 oz) 08/19/2024 1:27 P M CDT Height 157.5 cm (5' 2.01 ) 08/20/2024 7:50 AM CD T Body Mass Index 33.9 08/19/2024 1:27 PM CDT Plan of Treatment Not on file Medical Devices Implanted Type Area Barrel Cooper Device Identifier Shelf Expiration Date Model / Serial / Lot [employer] Excel[employer] Low Porfile Power Port 8fr 1.6mm 1 Lumen [id number] - [id number] Implanted:Qty: 1 on 05/06/2023 at [facility] [employer] 01/04/2028 [id number] / / [id number] Procedures Procedure Name Priority Date/Time Associated Diagnosis Comments POCT GLUCOSE DEVICE Routine 08/22/2024 12:23 PM CDT SURGICAL PATHOLOGY Routine 08/22/2024 10:07 AM CDT Rectal bleeding COLONOSCOPY 08/22/2024 9:46 AM CDT ENDO ADD ON COLON INJECTION SUBMUCOSAL 08/22/2024 9:46 AM CDT Rectal bleeding ENDO ADD ON COLON BIOPSY 08/22/2024 9:46 AM CDT Rectal bleeding COLON REMOVAL SNARE 08/22/2024 9 :46 AM CDT Rectal bleeding POCT GLUCOSE DEVICE Routine 08/22/2024 9 :40 AM CDT POCT GLUCOSE DEVICE Routine 08/22/2024 7 :46 AM CDT POTASSIUM, WHOLE BLOOD Timed 08/22/2024 5:57 AM CDT EGFR Routine 08/21/2024 9:04 PM CDT PROTIME-INR Routine 08/21/2024 9:04 PM CDT APTT Routine 08/21/2024 9:04 PM CDT BASIC METABOLIC PANEL Routine 08/21/2024 9:04 PM CDT CBC WITHOUT DIFFERENTIAL Routine 08/21/2024 9:04 PM CDT PHOSPHORUS Routine 08/21/2024 9:04 PM CDT MAGNESIUM Routine 08/21/2024 9:04 PM CDT POCT GLUCOSE DEVICE Routine 08/21/2024 8 :44 PM CDT POCT GLUCOSE DEVICE Routine 08/21/2024 5 :49 PM CDT POCT GLUCOSE DEVICE Routine 08/21/2024 12:27 PM CDT MRI PELVIS W WO CONTRAST IP Routine 08/21/2024 11:44 AM CDT POCT GLUCOSE DEVICE Routine 08/21/2024 7 :35 AM CDT CBC WITHOUT DIFFERENTIAL Timed 08/21/2024 6:43 AM CDT TRANSFUSE RED BLOOD CELLS Timed 08/21/2024 12:00 AM CDT PREPARE RBC Timed 08/20/2024 11:19 PM CDT EGFR Routine 08/20/2024 8:55 PM CDT BASIC METABOLIC PANEL Routine 08/20/2024 8:55 PM CDT CBC WITHOUT DIFFERENTIAL Routine 08/20/2024 8:55 PM CDT PHOSPHORUS Routine 08/20/2024 8:55 PM CDT MAGNESIUM Routine 08/20/2024 8:55 PM CDT POCT GLUCOSE DEVICE Routine 08/20/2024 8 :54 PM CDT POCT GLUCOSE DEVICE Routine 08/20/2024 4 :48 PM CDT POCT GLUCOSE DEVICE Routine 08/20/2024 12:24 PM CDT HEMOGLOBIN A1C STAT 08/20/2024 5:15 AM CDT CBC WITHOUT DIFFERENTIAL STAT 08/20/2024 5:15 AM CDT POCT GLUCOSE DEVICE Routine 08/20/2024 5 :14 AM CDT LIPID PANEL Routine 08/19/2024 11:58 PM CDT BASIC METABOLIC PANEL Routine 08/19/2024 11:58 PM CDT EGFR Routine 08/19/2024 11:58 PM CDT CBC WITHOUT DIFFERENTIAL Routine 08/19/2024 11:58 PM CDT PHOSPHORUS Routine 08/19/2024 11:58 PM CDT MAGNESIUM Routine 08/19/2024 11:58 PM CDT POCT GLUCOSE DEVICE Routine 08/19/2024 11:57 PM CDT POCT GLUCOSE DEVICE Routine 08/19/2024 8 :26 PM CDT TRANSFUSE RED BLOOD CELLS Timed 08/19/2024 8:20 PM CDT POCT GLUCOSE DEVICE Routine 08/19/2024 4 :51 PM CDT TRANSFUSE RED BLOOD CELLS Timed 08/19/2024 4:[address] ABDOMEN PELVIS W WO CONTRAST ED Urgent/IP Urgent 08/19/2024 3:43 PM CDT PREPARE RBC Timed 08/19/2024 2:37 PM CDT COMPREHENSIVE METABOLIC PANEL Routine 08/19/2024 1:54 PM CDT EGFR Routine 08/19/2024 1:54 PM CDT APTT Timed 08/19/2024 1:54 PM CDT DIFFERENTIAL AUTO STAT 08/19/2024 1:5 4 PM CDT CBC WITH AUTO DIFFERENTIAL STAT 08/19/2024 1:54 PM CDT PHOSPHORUS Routine 08/19/2024 1:54 PM CDT MAGNESIUM Routine 08/19/2024 1:54 PM CDT PROTIME-INR Timed 08/19/2024 1:54 PM CDT TYPE AND SCREEN STAT 08/19/2024 1:54 PM CDT SCAN - LABS 08/19/2024 12:04 PM CDT SCAN - LABS 08/17/2024 10:22 AM CDT [...] US OUTSIDE REFERENCE Routine 07/15/2024 12:05 AM PRECISION AGRICULTURE SPECIALIST BREAST IMAGING MG DIAGNOSTIC OUTSIDE REFERENCE Routine 07/15/2024 12:00 AM PRECISION AGRICULTURE SPECIALIST SCAN - LABS 07/06/2024 11:14 AM PRECISION AGRICULTURE SPECIALIST CT CHEST ABDOMEN PELVIS W CONTRAST Routine 07/06/2024 10:31 AM PRECISION AGRICULTURE SPECIALIST Endometrial cancer (HCC) Chemotherapy management, encounter for POCT CREATININE - DEVICE Routine 07/06/2024 10:11 AM PRECISION AGRICULTURE SPECIALIST SCAN - LABS 07/04/2024 5:29 PM PRECISION AGRICULTURE SPECIALIST SCAN - LABS 06/15/2024 5:37 PM PRECISION AGRICULTURE SPECIALIST SCAN - LABS 06/13/2024 11:26 AM PRECISION AGRICULTURE SPECIALIST from Last 3 Months Results * POCT glucose (08/22/2024 12:23 PM CDT) Glucose, POC 89 70 - 199 mg/dL Blood 08/22/2024 12:2 3 PM CDT 08/22/2024 12:23 PM CDT us Quynh Mims MD LAB POCT ORDERABLES - DEVICE Final Result [facility] [place] [address] * Surgical pathology (08/22/2024 10:07 AM CDT) Tissue (Polyp(s), colon/colorectal, esophageal, gastric) 08/22/2024 10:07 AM CDT Tissue specimen (specimen) (Polyp(s), colon/colorectal, esophageal, gastric) 08/22/2024 10:09 AM CDT Tissue specimen (specimen) (Polyp(s), colon/colorectal, esophageal, gastric) 08/22/2024 10:21 AM CDT Tissue specimen (specimen) (Polyp(s), colon/colorectal, esophageal, gastric) 08/22/2024 10:33 AM CDT Tissue specimen (specimen) (Polyp(s), colon/colorectal, esophageal, gastric) 08/22/2024 10:45 AM CDT Narrative PATHOLOGY [facility] - 08/23/2024 5:08 PM CDT EPIC results best viewed via link to PDF [facility] [place] [address] Note to Patients: This report may contain a detailed description of human tissue sent by a health care provider to the laboratory for pathologic evaluation. The content of this report is essential for diagnosis and may provide important critical findings. This information may be unfamiliar to patients to review without a medical professional present. It is advised that the patient review this report in the presence of a health care provider who can answer questions and explain the details. SURGICAL PATHOLOGY REPORT FINAL Patient Name: RHONDA WISEMAN Gender: F : 1955 (Age: 69) Address: [address] [place] [id number] Hospital #: [id number] Taken:08/22/2024 Received:08/22/2024 Reported: 08/23/2024 Patient Type: [facility] Inpatient Service: Gynecology Location: [place] [address] Physician(s): Prakash Monahan M.D. Diagnosis: A. Large bowel, cecal polyp, biopsy - Tubular adenoma. B. Large bowel, ascending colon polyp, biopsy - Tubular adenoma. C. Large bowel, ascending colon polyp, biopsy - Sessile serrated adenoma/lesion. D. Large bowel, descending colon polyp, biopsy - Tubular adenoma. E. Large bowel, rectal polyp, biopsy - Hyperplastic polyp. recr08/23/2024 09:28 By this signature, I attest that the above diagnosis is based upon my personal examination of the slides(and/or other material indicated in the diagnosis). Art Zambrano M.D. Report Electronically Reviewed and Signed Out By Art Zambrano M.D. 08/23/2024 17:08:03 Microscopic Description and Comment: Microscopic examination substantiates the above cited diagnosis. Berenice Foster M.D., P.h.D. History: The patient is a 69-year-old woman presenting for rectal bleeding. Operative procedure: Colon removal snare, endo add on colon biopsy, and endo add on colon injection submucosal. Specimen(s) Received: A: Cold biopsy cecal polyp B: Cold biopsies ascending colon polyp C: Hot snare ascending colon polyp D: Cold snare descending colon polyp E: Cold biopsy rectal polyp Gross Description: Received in five formalin jars labeled with the patient's identifiers. A. Labeled cold biopsy cecal polyp and consists of one alvarez-pink fragment(s) of soft tissue measuring 0.9 cm in greatest dimension. Labeled A1. Jar 0. B. Labeled cold biopsies ascending colon polyp and consists of multiple alvarez-pink fragment(s) of soft tissue with an aggregate measurement of 1.0 x 0.5 x 0.1 cm. Labeled B1. Jar 0. C. Labeled hot snare ascending colon polyp and consists of two alvarez-pink fragment(s) of soft tissue measuring 0.4-0.8 cm in greatest dimension. Labeled C1. Jar 0. D. Labeled cold snare descending colon polyp and consists of one alvarez-pink fragment(s) of soft tissue measuring 0.9 cm in greatest dimension. Labeled D1. Jar 0. E. Labeled cold biopsy rectal polyp and consists of one alvarez-pink fragment(s) of soft tissue measuring 0.4 cm in greatest dimension. Labeled E1. Jar 0. [facility]08/22/2024 12:48 PA(s): Thu Gutierres By this signature, I attest that the above diagnosis is based upon my personal examination of the slides(and/or other material). Addenda/Procedures The performance characteristics of some immunohistochemical stains, fluorescence in-situ hybridization tests and immunophenotyping by flow cytometry cited in this report (if any) were determined by the Surgical Pathology and Flow Cytometry Departments at [facility] as part of an ongoing software quality assurance specialist program and in compliance with federally mandated regulations drawn from the Clinical Laboratory Improvement Act of 1988 (CLIA '88). Some of these tests rely on the use of analyte specific reagents and are subject to specific labeling requirements by the US Food and Drug Administration. Such diagnostic tests may only be performed in a facility that is certified by the Department of Health and Human Services as a high complexity laboratory under CLIA '88. The FDA has determined that such clearance or approval is not necessary. This test is used for clinical purposes. It should not be regarded as investigational or for research. Nevertheless, federal rules concerning the medical use of analyte specific reagents require that the following disclaimer be attached to the report: This test was developed and its performance characteristics determined by the Surgical Pathology and Flow Cytometry Departments of [facility]. It has not been cleared or approved by the U. S. Food and Drug Administration. IMAGES AND SCANNED DOCUMENTS, IF INCLUDED, ONLY VIEWABLE IN PDF VERSION OF REPORT us Darius Lindo MD LAB PATHOLOGY ORDERABLES F inal Result PATHOLOGY [facility] 3rd Floor [place], [place] [phone] * Colonoscopy (08/22/2024 9:46 AM CDT) Anatomical Region Laterality Modality Other Narrative Procedure Note Darius Lindo MD - 08/22/2024 9:46 AM CDT GI ENDOSCOPY [facility] Patient Name: Rhonda Wis[place] Procedure Date: 08/22/2024 9:46 AM Date of : 1955 Admit Type: Inpatient Age: 69 Gender: Female Attending MD: Darius Lindo M.D. Room: [facility] ENDOSCOPY ROOM 3 Note Status: Finalized Procedure: Colonoscopy Indications: Last colonoscopy 1 year ago (October 2023), Rectal bleeding Referring MD: Marcie Norman Jr, M.D., Quynh Mims M.D. Providers: Darius Lindo M.D. Medicines: Monitored Anesthesia Care Complications: No immediate complications. Estimated Blood Loss: Estimated blood loss was minimal. Procedure: Pre-Anesthesia Assessment: - Immediately prior to administration ofmedications, the patient was re-assessed for adequacy to receive sedatives. - The risks and benefits of the procedure and the sedation options and risks were discussed with the patient. All questions were answered and informed consent was obtained. The benefits, risks and alternatives of theprocedure and sedation were discussed and informed consentwas obtained. All questions were answered. Please referto the signed informed consent document in the medical record. The scope was passed under direct vision.The [id number] endoscope was introduced through the anus and advanced to the cecum, identified by appendiceal orifice and ileocecal valve. The bowel preparation used was GoLYTELY via split dose instruction. The quality of the bowel preparationwas evaluated using the BBPS ([place] Bowel Preparation Scale) with scores of: Right Colon = 2 (minoramount of residual staining, small fragments of stooland/or opaque liquid, but mucosa seen well), TransverseColon = 2 (minor amount of residual staining, small fragments of stool and/or opaque liquid, but mucosa seen well) and Left Colon = 2 (minor amount of residual staining, small fragments of stool and/or opaque liquid, but mucosa seen well). The totalBBPS score equals 6. The quality of the bowelpreparation was good. Bowel prep was administered using a split dose. AI Technology was utilized during theprocedure to aid in polyp detection. Findings: A 3 mm polyp was found in the cecum. The polyp was sessile. The polyp was removed with a jumbo cold forceps. Resection and retrieval were complete. A 9 mm polyp was found in the ascending colon. The polyp was semi-sessile. The polyp was removed with a saline injection-lift technique using a hot snare. Resection and retrieval were complete.To prevent bleeding after the polypectomy, one hemostatic clip was successfully placed (MR conditional). 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 There was no bleeding at the end of the procedure. A 14 mm polyp was found in the ascending colon. The polyp wassessile. Biopsies were taken with a cold forceps for histology. Area wastattooed with an injection of 1 mL of Spot (carbon black). A 6 mm polyp was found in the descending colon. The polyp wassessile. The polyp was removed with a saline injection-lift technique using a cold snare. Resection and retrieval were complete. A polyp was found in the rectum. The polyp was sessile. Biopsies were taken with a cold forceps for histology. Many small and large-mouthed diverticula were found in the entirecolon. Impression: - One 3 mm polyp in the cecum, removed with a jumbo cold forceps. Resected and retrieved. - One 9 mm polyp in the ascending colon, removedusing injection-lift and a hot snare. Resected and retrieved. Clip (MR conditional) was placed. 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 - One 14 mm polyp in the ascending colon. Biopsied. Tattooed. - One 6 mm polyp in the descending colon, removed using injection-lift and a cold snare. Resected and retrieved. - One polyp in the rectum. Biopsied. - Diverticulosis in the entire examined colon. Recommendation: - [facility]. - Await pathology results. - Futher recommendations per inpatient GI consult service. - Repeat colonoscopy will be needed to remove the large polyp in the ascending colon (and possibleone in rectum) with a decision based on patient'soverall condition and prognosis of uterine cancerdiagnosis. Attending Participation: I personally performed the entire procedure. Electronically signed by Darius Lindo M.D. Darius Lindo M.D. 08/22/2024 11:00:59 AM . Number of Addenda: 0 Note Initiated On: 08/22/2024 9:46 AM Darius Lindo MD ENDOSCOPY PROCEDURES Final Result * POCT glucose (08/22/2024 9:40 AM CDT) [facility] Signature Glucose, POC 82 70 - 199 mg/dL Blood 08/22/2024 9:40 AM CDT 08/22/2024 9:40 AM CDT Quynh Mims MD LAB POCT ORDERABLES - DEVICE Final Result Performing Organization Address [facility] Co de Phone Number [facility] [employer] [place] [employer] [place] [address] * POCT glucose (08/22/2024 7:46 AM CDT) [facility] Signature Glucose, POC 82 70 - 199 mg/dL Blood 08/22/2024 7:46 AM CDT 08/22/2024 7:46 AM CDT Quynh Mims MD LAB POCT ORDERABLES - DEVICE Final Result Performing Organization Address [facility] Co de Phone Number [facility] [place] [address] * Potassium, whole blood (08/22/2024 5:57 AM CDT) [facility] Potassium, bld 3.8 3.3 - 4.9 mmol/L Blood 08/22/2024 5:57 AM CDT 08/22/2024 6:13 AM CDT Narrative KRYSTYNA ORTIZ - 08/22/2024 6:13 AM CDT Whenever K Repletion finished Quynh Mims MD LAB BLOOD ORDERABLES Final Result Performing Organization Address City/[facility] Co de Phone Number [facility] [employer] [place] [employer] [place] [address] * eGFR (08/21/2024 9:04 PM CDT) Pathologist [facility] eGFR 66 >=60 mL/min/1. 73 m2 Comment: Interpretive Data [...] interpretive data was last reviewed 2021. Blood 08/21/2024 9:04 PM CDT 08/21/2024 9:56 PM CDT us Quynh Mims MD LAB BLOOD ORDERABLES Final Result Performing Organization Address City/[facility]/ZIP Co de Phone Number [facility] [place] [address] * (ABNORMAL) aPTT (08/21/2024 9:04 PM CDT) aPTT 26(L) 28 - 38 sec Comment: Interpretive Data Heparin therapeutic range: 66.0 - 100.0 seconds. Range based on correlation with therapeutic heparin activity range of 0.3 - 0.7 Units/mL. Current interpretive data was last revised on 2023. Blood 08/21/2024 9:04 PM CDT 08/21/2024 10:09 PM CDT Quynh Mims MD LAB BLOOD ORDERABLES Final Result Performing Organization Address City/[facility] Co de Phone Number [facility] [place] [employer] [place] [address] * (ABNORMAL) Protime-INR (08/21/2024 9:04 PM CDT) Pathologist [facility] PT 13.7(H) 9.7 - 13.0 sec INR 1.26(H) 0.90 - 1.20 [facility] Comment: Interpretive data Oral anticoagulant therapeutic ranges: Venous thromboembolism prophylaxis or treatment: 2.0-3.0 CARDIOLOGY Standard range: 2.0-3.0 High-intensity range: 2.5-3.5 Refer to indication-specific guidelines for appropriate target ranges for prosthetic heart valve replacement. Current interpretive data was last revised on 2019. Blood 08/21/2024 9:04 PM CDT 08/21/2024 10:09 PM CDT Quynh Mims MD LAB BLOOD ORDERABLES Final Result [facility] [place] [employer] [place] [address] * (ABNORMAL) CBC without differential (08/21/2024 9:04 PM CDT) WBC 10.30(H) 3.80 - 9.90 K/cumm Hgb 8.8(L) 11.9 - 15.5 g/dL [facility] Hct 25.5(L) 35.6 - 45.5 % [facility] Plt 175 150 - 400 K/cumm [facility] MPV 11.6 9.1 - 12.3 fL [facility] RBC 2.91(L) 3.90 - 5.20 M/cumm [facility] MCV 87.6 81.3 - 96.4 fL [facility] MCH 30.2 27.1 - 33.3 pg [facility] MCHC 34.5 32.3 - 35.7 g/dL [facility] RDW CV 15.8(H) 11.1 - 14.9 % [facility] RDW SD 49.1(H) 35.7 - 48.1 fL [facility] NRBC abs 0.00 0.00 - 0.01 K/cumm [facility] Blood 08/21/2024 9:04 PM CDT 08/21/2024 9:57 PM CDT Darius Lindo MD LAB BLOOD ORDERABLES Final Result [facility] [place] [employer] [place] [address] * Phosphorus (08/21/2024 9:04 PM CDT) Phosphorus, pl 2.6 2.3 - 4.5 mg/dL Blood 08/21/2024 9:04 PM CDT 08/21/2024 9:56 PM CDT Darius Lindo MD LAB BLOOD ORDERABLES Final Result [facility] [place] [employer] [place] [address] * Magnesium (08/21/2024 9:04 PM CDT) Magnesium 1.8 1.4 - 2.5 mg/dL Blood 08/21/2024 9:04 PM CDT 08/21/2024 9:56 PM CDT Quynh Mims MD LAB BLOOD ORDERABLES Final Result Performing Organization Address [facility]/ZIP Co de Phone Number [facility] [place] [address] * (ABNORMAL) Basic metabolic panel (08/21/2024 9:04 PM CDT) [facility] Sodium 142 135 - 145 mmol/L Potassium, pl 3.4 3.3 - 4.9 mmol/L [facility] Chloride 108 97 - 110 mmol/L [facility] CO2 23 22 - 32 mmol/L [facility] Anion gap 11 2 - 15 mmol/L [facility] BUN 9 6 - 25 mg/dL [facility] Creatinine 0.95 0.60 - 1.10 mg/dL [facility] Glucose 74 70 - 199 mg/dL [facility] Comment: Interpretive Data Fasting glucose >/= 126 mg/dl is diagnostic for diabetes. Fasting is defined as no caloric intake for at least 8 hours. Fasting glucose between 100 mg/dl to 125 mg/dl is diagnostic of prediabetes. In a patient with classic symptoms of hyperglycemia or hyperglycemic crisis, a random glucose >/= 200 mg/dl is diagnostic for diabetes. In the absence of unequivocal hyperglycemia, results should be confirmed by repeat testing. The classification and Diagnosis of Diabetes Diabetes Care 2021; 46: S19-S40. Current interpretive data was last revised 2022. Calcium 8.2(L) 8.5 - 10.3 mg/dL [facility] Blood 08/21/2024 9:04 PM CDT 08/21/2024 9:56 PM CDT Darius Lnido MD LAB BLOOD ORDERABLES Final Result Performing Organization Address [facility]/ZIP Co de Phone Number [facility] [place] [address] * POCT glucose (08/21/2024 8:44 PM CDT) Glucose, POC 96 70 - 199 mg/dL Blood 08/21/2024 8:44 PM CDT 08/21/2024 8:44 PM CDT us Quynh Mims MD LAB POCT ORDERABLES - DEVICE Final Result Performing Organization Address [facility] Co de Phone Number [facility] [place] [employer] [place] [address] * POCT glucose (08/21/2024 5:49 PM CDT) Glucose, POC 98 70 - 199 mg/dL Blood 08/21/2024 5:49 PM CDT 08/21/2024 5:49 PM CDT us Quynh Mims MD LAB POCT ORDERABLES - DEVICE Final Result Performing Organization Address [facility] de Phone Number [facility] [place] [employer] [place] [address] * POCT glucose (08/21/2024 12:27 PM CDT) Glucose, POC 138 70 - 199 mg/dL Blood 08/21/2024 12:2 7 PM CDT 08/21/2024 12:27 PM CDT us Quynh Mims MD LAB POCT ORDERABLES - DEVICE Final Result Performing Organization Address [facility] de Phone Number [facility] [place] [employer] [place] [address] * MRI Pelvis W WO Contrast (08/21/2024 11:44 AM CDT) Anatomical Region Laterality Modality Pelvis N/A Magnetic Resonan ce 08/22/2024 10:0 1 AM CDT Impressions 08/22/2024 11:45 AM CDT 1. Significant decrease in tumor burden from 2022 involving the endometrium, cervical canal, and right ovary with decreased involvement of the peritoneal surface and abutment of the anterior mesorectal fat with persistent tethering and fibrosis to the rectosigmoid colon without definite open fistula. 2. Nodular areas of enhancement along the rectum, which could be prominent hemorrhoidal vessels. Dictated by: Emely Mayo MD The radiology attending physician has personally reviewed this study, and had reviewed and/or edited this written report and agrees with it. Electronically signed by: Kali Palomares M.D. Narrative 08/22/2024 11:45 AM CDT EXAMINATION: MAGNETIC RESONANCE IMAGING OF THE PELVIS WITH AND WITHOUT CONTRAST HISTORY: Stage IVB uterine cancer, status post chemotherapy presenting with hematochezia/bright red blood per rectum. Status post 22 cycles of letrozole and immunotherapy last 08/18/2023.. TECHNIQUE: MRI of the pelvis was performed prior to and following intravenous administration of gadolinium contrast. KY gel was self-administered into the vaginal vault by the patient prior to the beginning of the examination. Protocol: Cervical Cancer Contrast: gadoterate 16 mL COMPARISON: 08/19/2024 CT, pelvis MRI from 04/24/2023. FINDINGS: There is significantly decreased size of ill-defined enhancement and T2 intermediate signal within the endometrium and cervical canal compatible with decreased tumor burden. There is persistent, though decreased, enlargement of the endometrial lining. There is mild residual disease and enhancement involving the uterine corpus extending into the right ovary. There is decreased involvement of the peritoneal surface with abutment of the anterior mesorectal fat measuring up to 1.0 x 0.6 cm on series 27 image 33, previously 2.6 x 1.4 cm. There is residual tethering fibrosis to the rectosigmoid colon, series 24 image 27, series 10 image 16, series 12 image 21. Decreased right ovarian enlargement, now measuring 22 mm, previously 42 mm. The left ovary is normal There are multiple T2 and intermediate rectal nodules, series 10 image 16 with enhancement, could represent prominent hemorrhoidal vessels. Small volume ascites. No evidence of fistula to the bladder. 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 Procedure Note Kali Palomares MD PhD - 08/22/2024 EXAMINATION: MAGNETIC RESONANCE IMAGING OF THE PELVIS WITH AND WITHOUT CONTRAST HISTORY: Stage IVB uterine cancer, status post chemotherapy presenting with hematochezia/bright red blood per rectum. Status post 22 cycles of letrozole and immunotherapy last 08/18/2023.. TECHNIQUE: MRI of the pelvis was performed prior to and following intravenous administration of gadolinium contrast. KY gel was self-administered into the vaginal vault by the patient prior to the beginning of the examination. Protocol: Cervical Cancer Contrast: gadoterate 16 mL COMPARISON: 08/19/2024 CT, pelvis MRI from 04/24/2023. FINDINGS: There is significantly decreased size of ill-defined enhancement and T2 intermediate signal within the endometrium and cervical canal compatible with decreased tumor burden. There is persistent, though decreased, enlargement of the endometrial lining. There is mild residual disease and enhancement involving the uterine corpus extending into the right ovary. There is decreased involvement of the peritoneal surface with abutment of the anterior mesorectal fat measuring up to 1.0 x 0.6 cm on series 27 image 33, previously 2.6 x 1.4 cm. There is residual tethering fibrosis to the rectosigmoid colon, series 24 image 27, series 10 image 16, series 12 image 21. Decreased right ovarian enlargement, now measuring 22 mm, previously 42 mm. The left ovary is normal There are multiple T2 and intermediate rectal nodules, series 10 image 16 with enhancement, could represent prominent hemorrhoidal vessels. Small volume ascites. No evidence of fistula to the bladder. 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 IMPRESSION: 1. Significant decrease in tumor burden from 2022 involving the endometrium, cervical canal, and right ovary with decreased involvement of the peritoneal surface and abutment of the anterior mesorectal fat with persistent tethering and fibrosis to the rectosigmoid colon without definite open fistula. 2. Nodular areas of enhancement along the rectum, which could be prominent hemorrhoidal vessels. Dictated by: Emely Mayo MD The radiology attending physician has personally reviewed this study, and had reviewed and/or edited this written report and agrees with it. Electronically signed by: Kali Palomares M.D. us Quynh Mims MD IMG MRI PROCEDURES F inal Result * POCT glucose (08/21/2024 7:35 AM CDT) [facility] Glucose, POC 144 70 - 199 mg/dL Blood 08/21/2024 7:35 AM CDT 08/21/2024 7:35 AM CDT Quynh Mims MD LAB POCT ORDERABLES - DEVICE Final Result Performing Organization Address City/[facility]/ZIP Co de Phone Number [facility] [place] [address] * (ABNORMAL) CBC without differential (08/21/2024 6:43 AM CDT) [facility] WBC 9.46 3.80 - 9.90 K/cumm Hgb 8.3(L) 11.9 - 15.5 g/dL [facility] Hct 24.2(L) 35.6 - 45.5 % [facility] Plt 167 150 - 400 K/cumm [facility] MPV 11.4 9.1 - 12.3 fL [facility] RBC 2.78(L) 3.90 - 5.20 M/cumm [facility] MCV 87.1 81.3 - 96.4 fL [facility] MCH 29.9 27.1 - 33.3 pg [facility] MCHC 34.3 32.3 - 35.7 g/dL [facility] RDW CV 15.9(H) 11.1 - 14.9 % [facility] RDW SD 49.6(H) 35.7 - 48.1 fL [facility] NRBC abs 0.00 0.00 - 0.01 K/cumm [facility] Blood 08/21/2024 6:43 AM CDT 08/21/2024 7:12 AM CDT us Quynh Mims MD LAB BLOOD ORDERABLES Final Result [facility] [place] [employer] [place] [address] * Transfuse RBC (08/21/2024 2:13 AM CDT) Blood us Quynh Mims MD BLOOD TRANSFUSION OR DERABLES Final Result [facility] [place] [address] * Prepare RBC: 1 Units (08/20/2024 11:19 PM CDT) Product code [id number] Unit Number [id number] [facility] Product Blood Type APOS [facility] Dispense Status PRESUMED TRANSFUSED [facility] Blood 08/20/2024 11:1 9 PM CDT 08/20/2024 11:19 PM CDT Narrative [facility] - 08/21/2024 4:01 PM CDT Are special requirements needed? (All products are leukoreduced and CMV- safe)- >No Date required:-[id number] LRRBC # of [id number] Reasons:-Hgb <7 g/dL} us Quynh Mims MD BLOOD BANK PRODUCT O RDERABLES Final Result Performing Organization Address City/[facility]/ZIP Co de Phone Number [facility] [place] [address] * (ABNORMAL) eGFR (08/20/2024 8:55 PM CDT) eGFR 56(L) >=60 mL/min/1. 73 m2 Comment: Interpretive Data [...] of Race in Diagnosing Kidney Disease, JASN 202). The CKD-EPI equation should not be used for patients with unstable renal function and has not been validated in children and those over 70. Current interpretive data was last reviewed 2021. Blood 08/20/2024 8:55 PM CDT 08/20/2024 9:48 PM CDT us Quynh Mims MD LAB BLOOD ORDERABLES Final Result [facility] [place] [address] * (ABNORMAL) CBC without differential (08/20/2024 8:55 PM CDT) WBC 9.85 3.80 - 9.90 K/cumm Hgb 6.9(L) 11.9 - 15.5 g/dL [facility] Hct 20.1(L) 35.6 - 45.5 % [facility] Plt 164 150 - 400 K/cumm [facility] MPV 11.4 9.1 - 12.3 fL [facility] RBC 2.31(L) 3.90 - 5.20 M/cumm [facility] MCV 87.0 81.3 - 96.4 fL [facility] MCH 29.9 27.1 - 33.3 pg [facility] MCHC 34.3 32.3 - 35.7 g/dL [facility] RDW CV 16.8(H) 11.1 - 14.9 % [facility] RDW SD 51.7(H) 35.7 - 48.1 fL [facility] NRBC abs 0.02(H) 0.00 - 0.01 K/cumm [facility] Blood 08/20/2024 8:55 PM CDT 08/20/2024 9:49 PM CDT Darius Lindo MD LAB BLOOD ORDERABLES Final Result Performing Organization Address [facility] Co de Phone Number [facility] [place] [employer] [place] [address] * Phosphorus (08/20/2024 8:55 PM CDT) [facility] Phosphorus, pl 3.0 2.3 - 4.5 mg/dL Blood 08/20/2024 8:55 PM CDT 08/20/2024 9:48 PM CDT Darius Lindo MD LAB BLOOD ORDERABLES Final Result Performing Organization Address [facility] Co de Phone Number [facility] [place] [address] * Magnesium (08/20/2024 8:55 PM CDT) [facility] Magnesium 1.9 1.4 - 2.5 mg/dL Blood 08/20/2024 8:55 PM CDT 08/20/2024 9:48 PM CDT Quynh Mims MD LAB BLOOD ORDERABLES Final Result Performing Organization Address [facility] Co de Phone Number [facility] [place] [address] * (ABNORMAL) Basic metabolic panel (08/20/2024 8:55 PM CDT) [facility] Sodium 140 135 - 145 mmol/L Potassium, pl 3.8 3.3 - 4.9 mmol/L [facility] Chloride 111(H) 97 - 110 mmol/L [facility] CO2 22 22 - 32 mmol/L [facility] Anion gap 7 2 - 15 mmol/L [facility] BUN 17 6 - 25 mg/dL [facility] Creatinine 1.09 0.60 - 1.10 mg/dL [facility] Glucose 210(H) 70 - 199 mg/dL [facility] Comment: Interpretive Data Fasting glucose >/= 126 mg/dl is diagnostic for diabetes. Fasting is defined as no caloric intake for at least 8 hours. Fasting glucose between 100 mg/dl to 125 mg/dl is diagnostic of prediabetes. In a patient with classic symptoms of hyperglycemia or hyperglycemic crisis, a random glucose >/= 200 mg/dl is diagnostic for diabetes. In the absence of unequivocal hyperglycemia, results should be confirmed by repeat testing. The classification and Diagnosis of Diabetes Diabetes Care 2021; 46: S19-S40. Current interpretive data was last revised 2022. Calcium 7.8(L) 8.5 - 10.3 mg/dL [facility] Blood 08/20/2024 8:55 PM CDT 08/20/2024 9:48 PM CDT Darius Lindo MD LAB BLOOD ORDERABLES Final Result Performing Organization Address [facility]/ZIP Co de Phone Number [facility] [place] [address] * (ABNORMAL) POCT glucose (08/20/2024 8:54 PM CDT) Glucose, POC 258(H) 70 - 199 mg/dL Blood 08/20/2024 8:54 PM CDT 08/20/2024 8:54 PM CDT Quynh Mims MD LAB POCT ORDERABLES - DEVICE Final Result [facility] [employer] [place] [employer] [place] [address] * (ABNORMAL) POCT glucose (08/20/2024 4:48 PM CDT) Glucose, POC 210(H) 70 - 199 mg/dL Blood 08/20/2024 4:48 PM CDT 08/20/2024 4:48 PM CDT us Quynh Mims MD LAB POCT ORDERABLES - DEVICE Final Result [facility] [place] [address] * POCT glucose (08/20/2024 12:24 PM CDT) [facility] Glucose, POC 105 70 - 199 mg/dL Blood 08/20/2024 12:2 4 PM CDT 08/20/2024 12:24 PM CDT us Quynh Mims MD LAB POCT ORDERABLES - DEVICE Final Result Performing Organization Address [facility] de Phone Number [facility] [place] [address] * (ABNORMAL) CBC without differential (08/20/2024 5:15 AM CDT) [facility] WBC 14.24(H) 3.80 - 9.90 K/cumm Hgb 7.5(L) 11.9 - 15.5 g/dL [facility] Hct 22.3(L) 35.6 - 45.5 % [facility] Plt 170 150 - 400 K/cumm [facility] MPV 11.3 9.1 - 12.3 fL [facility] RBC 2.53(L) 3.90 - 5.20 M/cumm [facility] MCV 88.1 81.3 - 96.4 fL [facility] MCH 29.6 27.1 - 33.3 pg [facility] MCHC 33.6 32.3 - 35.7 g/dL [facility] RDW CV 16.1(H) 11.1 - 14.9 % [facility] RDW SD 50.4(H) 35.7 - 48.1 fL [facility] NRBC abs 0.03(H) 0.00 - 0.01 K/cumm [facility] Blood 08/20/2024 5:15 AM CDT 08/20/2024 6:10 AM CDT Quynh Mims MD LAB BLOOD ORDERABLES Final Result Performing Organization Address [facility] Co de Phone Number [facility] [place] [address] * (ABNORMAL) Hemoglobin A1c (08/20/2024 5:15 AM CDT) [facility] Hgb A1C 7.0(H) 4.0 - 5.6 % Estimated Average Glucose 154 mg/dL [facility] Comment: The ADA recommends reporting an estimated Average Glucose (eAG) with all Hemoglobin A1c results using the equation derived from a study of 507 normal and diabetic adults. Minority populations were underrepresented and children were not included. (Diabetes Care 2020; 43(S1): S66-S76). The eAG is not equivalent to a fasting glucose. Blood 08/20/2024 5:15 AM CDT 08/20/2024 6:14 AM CDT Quynh Mims MD LAB BLOOD ORDERABLES Final Result Performing Organization Address [facility] [place] [address] * POCT glucose (08/20/2024 5:14 AM CDT) [facility] Glucose, POC 78 70 - 199 mg/dL Blood 08/20/2024 5:14 AM CDT 08/20/2024 5:14 AM CDT us Quynh Mims MD LAB POCT ORDERABLES - DEVICE Final Result Performing Organization Address [facility] Co de Phone Number [facility] [place] [address] * eGFR (08/19/2024 11:58 PM CDT) [facility] eGFR 60 >=60 mL/min/1. 73 m2 Comment: Interpretive Data [...] interpretive data was last reviewed 2021. Blood 08/19/2024 11:5 8 PM CDT 08/20/2024 12:26 AM CDT us Quynh Mims MD LAB BLOOD ORDERABLES Final Result [facility] [place] [address] * (ABNORMAL) CBC without differential (08/19/2024 11:58 PM CDT) [facility] WBC 13.63(H) 3.80 - 9.90 K/cumm Hgb 7.1(L) 11.9 - 15.5 g/dL [facility] Hct 21.3(L) 35.6 - 45.5 % [facility] Plt 166 150 - 400 K/cumm [facility] MPV 11.4 9.1 - 12.3 fL [facility] RBC 2.42(L) 3.90 - 5.20 M/cumm [facility] MCV 88.0 81.3 - 96.4 fL [facility] MCH 29.3 27.1 - 33.3 pg [facility] MCHC 33.3 32.3 - 35.7 g/dL [facility] RDW CV 15.9(H) 11.1 - 14.9 % [facility] RDW SD 50.1(H) 35.7 - 48.1 fL [facility] NRBC abs 0.02(H) 0.00 - 0.01 K/cumm [facility] Blood 08/19/2024 11:5 8 PM CDT 08/20/2024 12:26 AM CDT Darius Lindo MD LAB BLOOD ORDERABLES Final Result [facility] [place] [employer] [place] [address] * Phosphorus (08/19/2024 11:58 PM CDT) Phosphorus, pl 3.1 2.3 - 4.5 mg/dL Blood 08/19/2024 11:5 8 PM CDT 08/20/2024 12:17 AM CDT Darius Lindo MD LAB BLOOD ORDERABLES Final Result Performing Organization Address City/[facility]/ZIP Co de Phone Number [facility] [place] [employer] [employer] [place] [address] * Magnesium (08/19/2024 11:58 PM CDT) Magnesium 2.0 1.4 - 2.5 mg/dL Blood 08/19/2024 11:5 8 PM CDT 08/20/2024 12:17 AM CDT Quynh Mims MD LAB BLOOD ORDERABLES Final Result [facility] [place] [address] * (ABNORMAL) Lipid panel (08/19/2024 11:58 PM CDT) Cholesterol 91 30 - 199 mg/dL Comment: Interpretive Data Ages < or = 19 years Acceptable: <170 mg/dL Borderline high: 170-199 mg/dL High: >or= 200 mg/dL Ages > or = 20 years Desirable: <200 mg/dL Borderline high: 200-239 mg/dL High: >or= 240 mg/dL Literature References: 1. Expert Panel on Integrated Guidelines for Cardiovascular Health and Risk Reduction in Children and Adolescents. Pediatrics 2011;128:S213 2. NCEP Expert Panel. Circulation 2004;110:227 Current Interpretive Data was last revised on 2017. Triglycerides 99 <=149 mg/dL [facility] Comment: Interpretive Data Ages < or = 9 years Acceptable: <75 mg/dL Borderline high: 75-99 mg/dL High: >or= 100 mg/dL Ages 10 to 20 years Acceptable: <90 mg/dL Borderline high: 90-129 mg/dL High: >or= 130 mg/dL Ages > or = 20 years Desirable: <150 mg/dL Borderline high: 150-199 mg/dL High: 200-499 mg/dL Very high: >or= 499 mg/dL Literature References: 1. Expert Panel on Integrated Guidelines for Cardiovascular Health and Risk Reduction in Children and Adolescents. Pediatrics 2011;128:S213 2. NCEP Expert Panel. Circulation 2004;110:227 Current Interpretive Data was last revised on 2017. HDL 30(L) >=40 mg/dL [facility] Comment: Interpretive Data Ages < or = 19 years Acceptable: >45 mg/dL Borderline low: 40-45 mg/dL Low: <40 mg/dL Ages > or = 20 years Desirable: >or= 60 mg/dL Low: <40 mg/dL Literature References: 1. Expert Panel on Integrated Guidelines for Cardiovascular Health and Risk Reduction in Children and Adolescents. Pediatrics 2011;128:S213 2. NCEP Expert Panel. Circulation 2004;110:227 Current Interpretive Data was last revised on 2017. LDL, calculated 42 <=129 mg/dL [facility] Comment: Interpretive Data Ages < or = 19 years Acceptable: <110 mg/dL Borderline high: 110-129 mg/dL High: >or= 130 mg/dL Ages > or = 20 years Optimal: <100 mg/dL Near optimal: 100-129 mg/dL Borderline high: 130-159 mg/dL High: >160 mg/dL Calculated using the Mike LDL-C estimating equation. This equation was implemented on 2023. Prior to this date LDL-C was estimated using the Friedewald equation. Literature References: 1. Expert Panel on Integrated Guidelines for Cardiovascular Health and Risk Reduction in Children and Adolescents. Pediatrics 2011;128:S213 2. NCEP Expert Panel. Circulation 2004;110:227 3. Mike Andrade et al. CAMILA Cardiol. 2020 September 08;5(5):540-548. doi: 10.1001/[email or web address].2020.0013 Current Interpretive Data was last revised on 2023. Non-HDL Cholesterol 61 mg/dL [facility] Comment: Interpretive Data Ages < or = 19 years Acceptable: <120 mg/dL Borderline high: 120-144 mg/dL High: >145 mg/dL Ages > or = 20 years When triglycerides are >200 mg/dL, Non-HDL cholesterol is a secondary target of therapy with treatment goals that are 30 mg/dL greater than the LDL cholesterol target. Literature References: 1. Expert Panel on Integrated Guidelines for Cardiovascular Health and Risk Reduction in Children and Adolescents. Pediatrics 2011;128:S213 2. NCEP Expert Panel. Circulation 2004;110:227 Current Interpretive Data was last revised on 2017. Chol/HDL ratio 3 [facility] Blood 08/19/2024 11:5 8 PM CDT 08/20/2024 12:26 AM CDT Narrative [facility] - 08/20/2024 8:24 AM CDT reflex us Quynh Mims MD LAB BLOOD ORDERABLES Final Result [facility] [place] [address] * (ABNORMAL) Basic metabolic panel (08/19/2024 11:58 PM CDT) Sodium 143 135 - 145 mmol/L Potassium, pl 3.3 3.3 - 4.9 mmol/L [facility] Chloride 112(H) 97 - 110 mmol/L [facility] CO2 23 22 - 32 mmol/L [facility] Anion gap 8 2 - 15 mmol/L [facility] BUN 21 6 - 25 mg/dL [facility] Creatinine 1.03 0.60 - 1.10 mg/dL [facility] Glucose 82 70 - 199 mg/dL [facility] Comment: Interpretive Data Fasting glucose >/= 126 mg/dl is diagnostic for diabetes. Fasting is defined as no caloric intake for at least 8 hours. Fasting glucose between 100 mg/dl to 125 mg/dl is diagnostic of prediabetes. In a patient with classic symptoms of hyperglycemia or hyperglycemic crisis, a random glucose >/= 200 mg/dl is diagnostic for diabetes. In the absence of unequivocal hyperglycemia, results should be confirmed by repeat testing. The classification and Diagnosis of Diabetes Diabetes Care 2021; 46: S19-S40. Current interpretive data was last revised 2022. Calcium 8.1(L) 8.5 - 10.3 mg/dL [facility] Blood 08/19/2024 11:5 8 PM CDT 08/20/2024 12:17 AM CDT us Quynh Mims MD LAB BLOOD ORDERABLES Final Result Performing Organization Address [facility] Co de Phone Number [facility] [place] [place] [address] * POCT glucose (08/19/2024 11:57 PM CDT) [facility] Glucose, POC 87 70 - 199 mg/dL Blood 08/19/2024 11:5 7 PM CDT 08/19/2024 11:57 PM CDT us Quynh Mims MD LAB POCT ORDERABLES - DEVICE Final Result Performing Organization Address [facility] Co de Phone Number [facility] [place] [address] * Transfuse RBC (08/19/2024 10:44 PM CDT) Blood Result Rene Mims MD BLOOD TRANSFUSION OR DERABLES Final Result Performing Organization Address [facility] Co de Phone Number [facility] [place] [employer] [place] [address] * POCT glucose (08/19/2024 8:26 PM CDT) Glucose, POC 153 70 - 199 mg/dL Blood 08/19/2024 8:26 PM CDT 08/19/2024 8:26 PM CDT Result Rene Mims MD LAB POCT ORDERABLES - DEVICE Final Result Performing Organization Address [facility] de Phone Number [facility] [employer] [place] [address] * Transfuse RBC (08/19/2024 6:55 PM CDT) Blood Result Rene Mims MD BLOOD TRANSFUSION OR DERABLES Final Result Performing Organization Address [facility] Co de Phone Number [facility] [employer] [place] [address] * POCT glucose (08/19/2024 4:51 PM CDT) Glucose, POC 127 70 - 199 mg/dL Blood 08/19/2024 4:51 PM CDT 08/19/2024 4:51 PM CDT Result Rene Mims MD LAB POCT ORDERABLES - DEVICE Final Result Performing Organization Address [facility] Co de Phone Number [facility] [employer] [place] [address] * CT Abdomen Pelvis W WO Contrast (08/19/2024 3:43 PM CDT) Anatomical Region Laterality Modality Body N/A Computed Tomogra phy 08/19/2024 4:05 PM CDT Impressions 08/19/2024 4:05 PM CDT 1. No active gastrointestinal bleed. 2. Similar extent of peritoneal/omental soft tissue nodularity and endometrial thickening. Electronically signed by: Mary Jane Hughes M.D. Narrative 08/19/2024 4:05 PM CDT EXAMINATION: CT ABDOMEN PELVIS W WO CONTRAST HISTORY: Endometrial cancer presenting with anemia and bright red blood per rectum with concern for active gastrointestinal bleed. TECHNIQUE: Transaxial computed tomographic images of the abdomen and pelvis were obtained with and without the use of intravenous contrast 93 mL according to standard protocol. COMPARISON: CT dated 07/06/2024 FINDINGS: Minimal bibasilar atelectasis. No pleural effusion or pneumothorax. No pericardial effusion. No focal liver lesions. Unchanged mild prominence of the central intrahepatic and extrahepatic bile ducts favored to represent reservoir effect in setting of cholecystectomy. The portal veins are patent. The spleen, pancreas, and right adrenal gland are normal. Unchanged 2.2 cm left adrenal nodule compatible with an adenoma when correlated with PET/CT dated 09/16/2023. The kidneys enhance symmetrically. Vascular calcifications versus nonobstructing renal calculi. No hydronephrosis. Unchanged left renal cysts. The bladder is normal. Anteverted uterus. There is unchanged tethering of the uterus to the rectum. Similar distention of the endometrial canal measuring up to 2 cm, previously 2 cm when remeasured in a similar fashion. No suspicious adnexal mass. No bowel obstruction. Colonic diverticulosis without evidence of acute diverticulitis. No active extravasation. There has been no significant change in peritoneal/omental soft tissue nodularity, predominantly involving the left upper quadrant, the extent of which is best seen and compared on coronal reconstructions. There is trace ascites in the pelvis. No free air. No abdominal or pelvic lymphadenopathy. 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 No abdominal aortic aneurysm. No suspicious osseous lesions. Stable soft tissue stranding in the left anterior abdominal wall. Procedure Note Mary Jane Hughes MD - 08/19/2024 EXAMINATION: CT ABDOMEN PELVIS W WO CONTRAST HISTORY: Endometrial cancer presenting with anemia and bright red blood per rectum with concern for active gastrointestinal bleed. TECHNIQUE: Transaxial computed tomographic images of the abdomen and pelvis were obtained with and without the use of intravenous contrast 93 mL according to standard protocol. COMPARISON: CT dated 07/06/2024 FINDINGS: Minimal bibasilar atelectasis. No pleural effusion or pneumothorax. No pericardial effusion. No focal liver lesions. Unchanged mild prominence of the central intrahepatic and extrahepatic bile ducts favored to represent reservoir effect in setting of cholecystectomy. The portal veins are patent. The spleen, pancreas, and right adrenal gland are normal. Unchanged 2.2 cm left adrenal nodule compatible with an adenoma when correlated with PET/CT dated 09/16/2023. The kidneys enhance symmetrically. Vascular calcifications versus nonobstructing renal calculi. No hydronephrosis. Unchanged left renal cysts. The bladder is normal. Anteverted uterus. There is unchanged tethering of the uterus to the rectum. Similar distention of the endometrial canal measuring up to 2 cm, previously 2 cm when remeasured in a similar fashion. No suspicious adnexal mass. No bowel obstruction. Colonic diverticulosis without evidence of acute diverticulitis. No active extravasation. There has been no significant change in peritoneal/omental soft tissue nodularity, predominantly involving the left upper quadrant, the extent of which is best seen and compared on coronal reconstructions. There is trace ascites in the pelvis. No free air. No abdominal or pelvic lymphadenopathy. 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 No abdominal aortic aneurysm. No suspicious osseous lesions. Stable soft tissue stranding in the left anterior abdominal wall. IMPRESSION: 1. No active gastrointestinal bleed. 2. Similar extent of peritoneal/omental soft tissue nodularity and endometrial thickening. Electronically signed by: Mary Jane Hughes M.D. Quynh Mims MD IM CT PROCEDURES Fi nal Result * Prepare RBC: 4 Units (08/19/2024 2:37 PM CDT) Product code [id number] Unit Number [id number]- R [facility] Product Blood Type APOS [facility] Dispense Status PRESUMED TRANSFUSED [facility] Product code [id number] [facility] Unit Number [id number]- U [facility] Product Blood Type APOS [facility] Dispense Status PRESUMED TRANSFUSED [facility] Blood 08/19/2024 2:37 PM CDT 08/19/2024 2:37 PM CDT Narrative [facility] - 08/20/2024 8:03 AM CDT Are special requirements needed? (All products are leukoreduced and CMV- safe)- >No Date required:-[id number] LRRBC # of [id number] Reasons:-Hgb <7 g/dL} us Quynh Mims MD BLOOD BANK PRODUCT O RDERABLES Final Result [facility] [place] [address] * (ABNORMAL) eGFR (08/19/2024 1:54 PM CDT) eGFR 57(L) >=60 mL/min/1. 73 m2 Comment: Interpretive Data [...] interpretive data was last reviewed 2021. Blood 08/19/2024 1:54 PM CDT 08/19/2024 2:28 PM CDT us Quynh Mims MD LAB BLOOD ORDERABLES Final Result [facility] [place] [address] * (ABNORMAL) Differential, auto (08/19/2024 1:54 PM CDT) Neutrophil abs 8.26(H) 1.50 - 6.50 K/cumm Imm gran abs 0.12(H) 0.00 - 0.10 K/cumm [facility] Lymphocyte abs 2.15 0.80 - 3.30 K/cumm [facility] Monocyte abs 0.82(H) 0.20 - 0.80 K/cumm [facility] Eosinophil abs 0.11 0.00 - 0.50 K/cumm [facility] Basophil abs 0.02 0.00 - 0.10 K/cumm [facility] Neutrophil pct 72.0 % [facility] Comment: Interpretive Data Percent cell count reference ranges are not reported, since discordance with absolute values may lead to misinterpretation of CBC data. Current Interpretive Data was last revised on 2017. Imm gran pct 1.0 % [facility] Comment: Interpretive Data Percent cell count reference ranges are not reported, since discordance with absolute values may lead to misinterpretation of CBC data. Current Interpretive Data was last revised on 2017. Lymphocyte pct 18.7 % [facility] Comment: Interpretive Data Percent cell count reference ranges are not reported, since discordance with absolute values may lead to misinterpretation of CBC data. Current Interpretive Data was last revised on 2017. Monocyte pct 7.1 % [facility] Comment: Interpretive Data Percent cell count reference ranges are not reported, since discordance with absolute values may lead to misinterpretation of CBC data. Current Interpretive Data was last revised on 2017. Eosinophil pct 1.0 % [facility] Comment: Interpretive Data Percent cell count reference ranges are not reported, since discordance with absolute values may lead to misinterpretation of CBC data. Current Interpretive Data was last revised on 2017. Basophil pct 0.2 % [facility] Comment: Interpretive Data Percent cell count reference ranges are not reported, since discordance with absolute values may lead to misinterpretation of CBC data. Current Interpretive Data was last revised on 2017. Blood 08/19/2024 1:54 PM CDT 08/19/2024 2:17 PM CDT us Quynh Mims MD LAB BLOOD ORDERABLES Final Result [facility] [place] [address] * (ABNORMAL) CBC with auto differential (08/19/2024 1:54 PM CDT) WBC 11.48(H) 3.80 - 9.90 K/cumm Hgb 4.6(C) 11.9 - 15.5 g/dL [facility] Comment:This result has been called to MONTSERRAT DE LEÓN RN by [email or web address] on 08/19/2024 14:32:32, and has been read back. Hct 14.2(L) 35.6 - 45.5 % [facility] Plt 166 150 - 400 K/cumm [facility] MPV 11.5 9.1 - 12.3 fL [facility] RBC 1.54(L) 3.90 - 5.20 M/cumm [facility] MCV 92.2 81.3 - 96.4 fL [facility] MCH 29.9 27.1 - 33.3 pg [facility] MCHC 32.4 32.3 - 35.7 g/dL [facility] RDW CV 16.6(H) 11.1 - 14.9 % [facility] RDW SD 54.9(H) 35.7 - 48.1 fL [facility] NRBC abs 0.00 0.00 - 0.01 K/cumm [facility] Blood 08/19/2024 1:54 PM CDT 08/19/2024 2:17 PM CDT Result Rene Mims MD LAB BLOOD ORDERABLES Final Result Performing Organization Address [facility] de Phone Number [facility] [place] [address] * (ABNORMAL) aPTT (08/19/2024 1:54 PM CDT) aPTT 27(L) 28 - 38 sec Comment: Interpretive Data Heparin therapeutic range: 66.0 - 100.0 seconds. Range based on correlation with therapeutic heparin activity range of 0.3 - 0.7 Units/mL. Current interpretive data was last revised on 2023. Blood 08/19/2024 1:54 PM CDT 08/19/2024 2:21 PM CDT Result Rene Mims MD LAB BLOOD ORDERABLES Final Result Performing Organization Address [facility] de Phone Number [facility] [place] [address] * (ABNORMAL) Protime-INR (08/19/2024 1:54 PM CDT) PT 13.9(H) 9.7 - 13.0 sec INR 1.28(H) 0.90 - 1.20 [facility] Comment: Interpretive data Oral anticoagulant therapeutic ranges: Venous thromboembolism prophylaxis or treatment: 2.0-3.0 CARDIOLOGY Standard range: 2.0-3.0 High-intensity range: 2.5-3.5 Refer to indication-specific guidelines for appropriate target ranges for prosthetic heart valve replacement. Current interpretive data was last revised on 2019. Blood 08/19/2024 1:54 PM CDT 08/19/2024 2:21 PM CDT Result Rene Mims MD LAB BLOOD ORDERABLES Final Result Performing Organization Address [facility] Co de Phone Number [facility] [place] [place] [address] * Type and screen (08/19/2024 1:54 PM CDT) ABO Rh A Positive Ramon, indirect Negative [facility] Blood 08/19/2024 1:54 PM CDT 08/19/2024 2:26 PM CDT Narrative [facility] - 08/19/2024 3:17 PM CDT Has the patient had Daratumumab or Isatuximab in the past 6 months?->Unknown Quynh Mims MD LAB BLOOD BANK TEST ORDERABLES Final Result Performing Organization Address [facility] de Phone Number [facility] [place] [address] * Phosphorus (08/19/2024 1:54 PM CDT) Phosphorus, pl 3.3 2.3 - 4.5 mg/dL Blood 08/19/2024 1:54 PM CDT 08/19/2024 2:14 PM CDT Darius Lindo MD LAB BLOOD ORDERABLES Final Result Performing Organization Address [facility] Co de Phone Number [facility] [place] [address] * Magnesium (08/19/2024 1:54 PM CDT) Magnesium 2.1 1.4 - 2.5 mg/dL Blood 08/19/2024 1:54 PM CDT 08/19/2024 2:14 PM CDT Quynh Mims MD LAB BLOOD ORDERABLES Final Result Performing Organization Address [facility]/ZIP Co de Phone Number [facility] [place] [address] * (ABNORMAL) Comprehensive metabolic panel (08/19/2024 1:54 PM CDT) Sodium 143 135 - 145 mmol/L Potassium, pl 3.7 3.3 - 4.9 mmol/L [facility] Chloride 112(H) 97 - 110 mmol/L [facility] CO2 21(L) 22 - 32 mmol/L [facility] Anion gap 10 2 - 15 mmol/L [facility] BUN 25 6 - 25 mg/dL [facility] Creatinine 1.07 0.60 - 1.10 mg/dL [facility] Glucose 189 70 - 199 mg/dL [facility] Comment: Interpretive Data Fasting glucose >/= 126 mg/dl is diagnostic for diabetes. Fasting is defined as no caloric intake for at least 8 hours. Fasting glucose between 100 mg/dl to 125 mg/dl is diagnostic of prediabetes. In a patient with classic symptoms of hyperglycemia or hyperglycemic crisis, a random glucose >/= 200 mg/dl is diagnostic for diabetes. In the absence of unequivocal hyperglycemia, results should be confirmed by repeat testing. The classification and Diagnosis of Diabetes Diabetes Care 202; 46: S19-S40. Current interpretive data was last revised 2022. Calcium 8.0(L) 8.5 - 10.3 mg/dL [facility] Bilirubin, total <0.2 0.1 - 1.2 mg/dL [facility] Protein, pl 5.7(L) 6.5 - 8.5 g/dL [facility] Albumin 3.5 3.5 - 5.0 g/dL [facility] Alk phos 52 40 - 130 Units/L [facility] ALT 15 7 - 45 Units/L [facility] AST 17 10 - 45 Units/L [facility] Blood 08/19/2024 1:54 PM CDT 08/19/2024 2:14 PM CDT us Quynh Mims MD LAB BLOOD ORDERABLES Final Result [facility] [place] [address] * SCAN - LABS (08/19/2024 12:04 PM CDT) Caridad Casanova RN Final Result * SCAN - LABS (08/17/2024 10:22 AM CDT) Rachael Moncada RN Final Result * MISC-ORDER (08/17/2024 10:07 AM CDT) Historical Provider LAB BLOOD ORDERABLES Jo l Result * SCAN - LABS (08/16/2024 8:35 AM CDT) Rachael Moncada RN Final Result * SCAN - LABS (08/05/2024 5:58 PM CDT) Rachael Moncada RN Final Result * MISC-ORDER (08/02/2024 9:07 AM CDT) Result [facility] Historical Provider MD LAB BLOOD ORDERABLES Jo [...] RIGHT breast was performed by a trained tourist guide and by Dr. Hampton . BREAST PARENCHYMAL [...] RIGHT breast was performed by a trained tourist guide and by Dr. Hampton . BREAST PARENCHYMAL [...] RIGHT breast was performed by a trained tourist guide and by Dr. Hampton . BREAST PARENCHYMAL [...] RIGHT breast was performed by a trained tourist guide and by Dr. Hampton . BREAST PARENCHYMAL [...] images may or may not represent the napaimute source data set and thus may contain [...] OF OUTSIDE IMAGING FACILITY PERFORMING OUTSIDE IMAGING: [facility] [place] EXAM(S) REVIEWED: 1. BILATERAL DIAGNOSTIC MAMMOGRAM WITH [...] OF OUTSIDE IMAGING FACILITY PERFORMING OUTSIDE IMAGING: [facility] [place] EXAM(S) REVIEWED: 1. BILATERAL DIAGNOSTIC MAMMOGRAM WITH [...] images may or may not represent the napaimute source data set and thus may contain [...] sec INR 1.26(H) 0.90 - 1.20 [facility] Comment: Interpretive data Oral anticoagulant therapeutic ranges: Venous thromboembolism prophylaxis or treatment: 2.0-3.0 CARDIOLOGY Standard range: 2.0-3.0 High-intensity range: 2.5-3.5 Refer to indication-specific guidelines for appropriate target ranges for prosthetic heart valve replacement. Current interpretive data was last revised on 2019. Blood 07/27/2024 11:4 1 AM CDT 07/27/2024 1:07 PM CDT us Quynh Mims MD LAB BLOOD ORDERABLES Final Result [facility] [place] [address] * SCAN - LABS (07/27/2024 9:02 AM [...] (Axial Sectra reconstruction images, image 102; Series 49639, image 19; Series 84518, image 71). Mild degree of scattered foci [...] (Axial Sectra reconstruction images, image 102; Series 69504, image 19; Series 06715, image 71). Mild degree of scattered foci [...] by: Rosalinda Galvez M.D. Quynh Mims MD [facility] MRI PROCEDURES F inal Result * Breast Imaging US Outside Reference (07/15/2024 12:05 AM PRECISION AGRICULTURE SPECIALIST) Impressions [facility] - 07/27/2024 2:25 PM CDT These images are for Reference purposes only and have not been reviewed by [facility] Radiology. There will be no report generated by a [facility] Radiologist. Narrative [facility] - 07/27/2024 2:25 PM CDT EXAMINATION: Images For Reference Purposes Only us Provider Transcribed Order IMG MAMMO PROCEDURES Final Result [facility] * Breast Imaging Diagnostic Outside Reference (07/15/2024 12:00 AM PRECISION AGRICULTURE SPECIALIST) Impressions [facility] - 07/27/2024 2:25 PM CDT These images are for Reference purposes only and have not been reviewed by [facility] Radiology. There will be no report generated by a [facility] Radiologist. Narrative [facility] - 07/27/2024 2:25 PM CDT EXAMINATION: Images For Reference Purposes Only us Provider Transcribed Order IMG MAMMO PROCEDURES Final Result Performing Organization Address [facility] Co de Phone Number [email or web address] * SCAN - LABS (07/06/2024 11:14 AM PRECISION AGRICULTURE SPECIALIST) Rachael Moncada RN Edited Resul t - Final * CT Chest Abdomen Pelvis W Contrast (07/06/2024 10:31 AM PRECISION AGRICULTURE SPECIALIST) Anatomical Region Laterality Modality Body N/A Computed Tomogra phy 07/06/2024 11:5 3 AM PRECISION AGRICULTURE SPECIALIST Impressions 07/06/2024 11:53 AM PRECISION AGRICULTURE SPECIALIST 1. Increased thickness of the endometrial cavity. [...] Bunny Jarvis M.D. Narrative 07/06/2024 11:53 AM PRECISION AGRICULTURE SPECIALIST EXAMINATION: Computed tomography of the chest, abdomen [...] Result * POCT creatinine (07/06/2024 10:11 AM PRECISION AGRICULTURE SPECIALIST) Creatinine POC 1.1 0.6 - 1.1 mg/dL Blood 07/06/2024 10:1 1 AM PRECISION AGRICULTURE SPECIALIST 07/06/2024 10:11 AM PRECISION AGRICULTURE SPECIALIST Quynh Mims MD LAB POCT ORDERABLES - DEVICE Final Result [facility] [place] [address] * SCAN - LABS (07/04/2024 5:29 PM PRECISION AGRICULTURE SPECIALIST) Rachael Moncada RN Edited Resul t - Final * SCAN - LABS (06/15/2024 5:37 PM PRECISION AGRICULTURE SPECIALIST) Rachael Moncada RN Edited Resul t - Final * SCAN - LABS (06/13/2024 11:26 AM PRECISION AGRICULTURE SPECIALIST) Rachael Moncada RN Final Result from Last 3 Months Insurance [facility] MEDICARE [facility] MEDICARE [facility] Address: [address] [address] [place] [address] [employer] Advance Directives For more information, please contact: [phone] * Full Code (Latest Code Status on File) Date Activated Date Inactivated Comments 08/19/2024 1:31 PM 08/22/2024 6:55 PM * Full Code Date Activated Date Inactivated Comments 10/23/2023 7:57 AM 10/23/2023 1:38 PM Care Teams Auto Striper Relationship Specialty Start Date End Date Andrea Chandler MD PCP - General Internal Medicine 03/31/23
--- OUTSIDE RECORDS SUMMARY | 2024-09-05 11:36 | XMS_ITS | Clinical Summary ---
Author Organization [facility] [place] [address] Address [address] [place] [address] Care Team Providers Care Check Embosser Name Role Phone Andrea Chandler MD Primary Care Provider [phone] Allergies Active Allergy Reactions Criticality Noted Date [...] 1 capsule (75 mg total) by mouth sales service representative before breakfast Active acetaminophen (TYLENOL) 500 mg [...] UNTIL AFTER YOUR TEST 4000 mL 4 025 Discontin ued(Stop Taking at Discharge ) [...] Department Care Team Description 08/27/2024 Results Follow-Up [facility] [address] [place] [address] 12th [place] [address] [place] [address] Darius Lindo MD 08/22/2024 10:45 AM CDT - 08/22/2024 11:25 AM CDT Surgery [facility] [address] [address] Darius Lindo MD COLON REMOVAL SNARE 08/22/2024 9:46 AM CDT Anesthesia Event [facility] [address] [address] Gavin Jaimes MD Schappe, Elizabeth Mary, CRNA 08/19/2024 1:01 PM CDT - 08/22/2024 2:44 PM CDT Hospital Encounter [facility] 1 [place] [address] Quynh Mims MD Rectal bleeding (Primary Dx) Discharge Disposition: Discharge to home or self care 08/19/2024 Orders Only [facility] Caridad Casanova RN 08/19/2024 Telephone [facility] [address] [place] [address] [facility] 13th [place] [address] Rachael Moncada, RN 08/18/2024 Telephone [facility] [address] [place] [address] [facility] 13th [place] [address] Rachael Moncada, NADEGE 08/18/2024 Orders Only [facility] [address] [place] [address] [facility] 13th [place] [address] Rachael Moncada, RN Endometrial cancer (HCC) (Primary Dx); Dizzy; Rectal bleeding 08/17/2024 1:00 PM CDT Infusion [facility] Gynec[facility] [place] [facility] [address] [place] [address] Endometrial cancer (HCC) (Primary Dx); Peritoneal carcinomatosis (HCC) 08/17/2024 Orders Only [facility] Rachael Moncada, RN 08/17/2024 Orders Only [facility] [address] [place] [address] [facility] 13th [place] [address] ProviderRosa MD 08/16/2024 Orders Only [facility] Rachael Moncada RN 08/05/2024 Orders Only OB ONCOLOGY Rachael Moncada, NADEGE Endometrial cancer (HCC) (Primary Dx) 08/02/2024 Orders Only [facility] [address] [place] [address] [facility] 13th [place] [address] [place] [address] Rachael Moncada RN Abnormal breast finding (Primary Dx); Abnormal mammogram of right breast; Abscess of right breast 08/02/2024 Orders Only [facility] [address] [place] [address] [facility] 13th [place] [address] [place] [address] ProviderRosa MD 08/01/2024 1:18 PM CDT - 08/01/2024 11:59 PM CDT Hospital Encounter [facility] [address] [facility] 8 [place] [address] Abnormal mammogram Discharge Disposition: Discharge to home or self care 08/01/2024 1:18 PM CDT - 08/01/2024 11:59 PM CDT Hospital Encounter [facility] [address] [facility] 8 [place] [address] Endometrial cancer (HCC); Abnormal breast finding Discharge Disposition: Discharge to home or self care 07/28/2024 Telephone [facility] [address] [place] [address] Sepideh Hernandez RN 07/27/2024 11:50 AM CDT - 07/27/2024 11:59 PM CDT Hospital Encounter [facility] [address] [place] [address] Abnormal mammogram Discharge Disposition: Discharge to home or self care 07/27/2024 11:30 AM CDT Infusion [facility] [address] [place] [address] Peritoneal carcinomatosis (HCC) (Primary Dx); Endometrial cancer (HCC); Encounter for preprocedural laboratory examination 07/27/2024 10:15 AM CDT Office Visit [facility] [address] [facility] 13th [place] [address] Quynh Mims MD Endometrial cancer (HCC) (Primary Dx); Encounter for preprocedural laboratory examination 07/27/2024 Telephone [facility] ([facility]) [address] [place] [address] Enma Ortiz, NADEGE Appointment (Scheduling of breast biopsy) 07/27/[address] [facility] ([facility]) [address] [place] [address] Enma Ortiz, NADEGE Appointment (Scheduling of breast biopsy) 07/27/[address] [facility] ([facility]) [address] [place] [address] Enma Ortiz RN Appointment (Scheduling of breast biopsy) 07/27/2024 Documentation [facility] [address] [facility] 13th [place] [phone] Rachael Moncada RN 07/27/2024 Orders Only [facility] [address] [facility] 13th [place] [phone] Rachael Moncada, RN Mass of temporal lobe (Primary Dx); Endometrial cancer (HCC) 07/27/2024 Orders Only [facility] Rachael Moncada, RN 07/25/2024 Orders Only [facility] Liane Cooper RN 07/22/2024 Results Follow-Up [facility] [address] [facility] 13th [place] [phone] Rachael Moncada RN 07/21/2024 Telephone [facility] [address] [facility] 13th [place] [address] Rachael Moncada RN 07/20/2024 7:42 AM CDT - 07/20/2024 11:59 PM CDT Hospital Encounter [facility] Radiology 1 [facility] [place] [address] Quynh Mims MD Endometrial cancer (HCC); Frequent falls; Balance problem Discharge Disposition: Discharge to home or self care 07/15/2024 12:05 AM ELECTROPLATING WORKER - 07/15/2024 11:59 PM ELECTROPLATING WORKER Hospital Encounter [facility] ([facility]) [address] [place] [address] Discharge Disposition: Discharge to home or self care 07/15/2024 - 07/15/2024 11:59 PM ELECTROPLATING WORKER Hospital Encounter [facility] ([facility]) [address] [place] [address] Discharge Disposition: Discharge to home or self care 07/06/2024 2:00 PM ELECTROPLATING WORKER [facility] ([facility]) [address] [place] [address] Endometrial cancer (HCC) (Primary Dx) 07/06/2024 1:00 PM ELECTROPLATING WORKER Office Visit [facility] [address] [place] [address] for [facility] 13th [place] [address] Quynh Mims MD Endometrial cancer (HCC) 07/06/2024 9:39 AM ELECTROPLATING WORKER - 07/06/2024 11:59 PM ELECTROPLATING WORKER Hospital Encounter [facility] ([facility]) [address] [place] [address] Endometrial cancer (HCC); Chemotherapy management, encounter for Discharge Disposition: Discharge to home or self care 07/06/2024 Documentation [facility] [address] [place] [address] for [facility] 13th [place] [address] Rachael Moncada RN 07/06/2024 Orders Only [facility] Rachael Moncada RN Abnormal breast finding (Primary Dx); Endometrial cancer (HCC); Frequent falls; Balance problem 07/04/2024 Orders Only Rachael Sena RN 06/15/2024 2:00 PM ELECTROPLATING WORKER Infusion [place] [facility] Gynecologic On[facility]) [address] [place] [address] Endometrial cancer (HCC) (Primary Dx) 06/15/2024 1:00 PM ELECTROPLATING WORKER Office Visit [facility] [address] [facility] 13th [place] [address] [place] [address] Quynh Mims MD Endometrial cancer (HCC) 06/15/2024 Orders Only [facility] Rachael Moncada RN 06/13/2024 Orders Only [facility] Rachael Moncada RN Endometrial cancer [...] on file Legal Sex Female 3:27 AM ELECTROPLATING WORKER Gender Identity Not on file Sexual Orientation [...] 08/19/2024 1:27 PM CDT Plan of Treatment Health Maintenance Due Date Last Done Comments Albumin Creatinine Ratio, Urine 1955 Depression Screening 1955 Hepatitis C Screening 1955 Osteoporosis Screening-Bone Density Scan 1955 Dilated Eye Exam 1955 Foot Exam 1955 DTaP/Tdap/Td Vaccine (1 - Tdap) 02/13/1968 Hepatitis B Screening 1975 Pneumococcal vaccine 65+ (1 of 2 - PCV) 02/13/1976 Zoster Vaccine (1 of 2) 02/13/1976 Well Visit 65+ 2022 Covid-19 Vaccine (2023- 5 season) 2024 04/26/2021, 08/14/2020, 07/17/2020 Influenza Vaccine (Season Ended) 2025 03/06/2023, 02/11/2022, 01/31/2019, Additional history exists Hemoglobin A1C 02/19/2025 08/20/2024, 05/0 01/2024, 04/17/2023 Breast Cancer Screening-Mammogram 08/01/2025 025 Lipid Panel 08/19/2025 08/19/2024 eGFR 08/21/2025 08/21/2024, 08/09, 08/19/2024, Additional history exists Fall Risk Assessment 08/22/2025 08/22/2024 Colon Cancer Screening-Colonoscopy 08/22/20342024, 10/23/2023 Medical Devices Implanted Type Area Pulp Drier Firer Device Identifier Shelf Expiration Date Model / Serial / Lot [employer] Excela Low Porfile Power Port 8fr 1.6mm 1 Lumen [id number] - [id number] Implanted:Qty: 1 on 05/06/2023 at [place] [facility] [employer] 01/04/2028 [id number] / / [id number] Procedures Procedure Name Priority Date/Time Associated Diagnosis [...] US OUTSIDE REFERENCE Routine 07/15/2024 12:05 AM ELECTROPLATING WORKER BREAST IMAGING MG DIAGNOSTIC OUTSIDE REFERENCE Routine 07/15/2024 12:00 AM ELECTROPLATING WORKER SCAN - LABS 07/06/2024 11:[address] CHEST ABDOMEN PELVIS W CONTRAST Routine 07/06/2024 10:31 AM ELECTROPLATING WORKER Endometrial cancer (HCC) Chemotherapy management, encounter for POCT CREATININE - DEVICE Routine 07/06/2024 10:11 AM ELECTROPLATING WORKER SCAN - LABS 07/04/2024 5:29 PM ELECTROPLATING WORKER SCAN - LABS 06/15/2024 5:37 PM ELECTROPLATING WORKER SCAN - LABS 06/13/2024 11:26 AM ELECTROPLATING WORKER from Last 3 Months Results * POCT glucose (08/22/2024 12:23 PM CDT) Glucose, POC 89 70 - 199 mg/dL Blood 08/22/2024 12:2 3 PM CDT 08/22/2024 12:23 PM CDT us Quynh Mims MD LAB POCT ORDERABLES - DEVICE Final Result [facility] Department [place] [address] * Surgical pathology (08/22/2024 10:07 AM CDT) Tissue (Polyp(s), colon/colorectal, esophageal, gastric) 08/22/2024 10:07 AM CDT Tissue specimen (specimen) (Polyp(s), colon/colorectal, esophageal, gastric) 08/22/2024 10:09 AM CDT Tissue specimen (specimen) (Polyp(s), colon/colorectal, esophageal, gastric) 08/22/2024 10:21 AM CDT Tissue specimen (specimen) (Polyp(s), colon/colorectal, esophageal, gastric) 08/22/2024 10:33 AM CDT Tissue specimen (specimen) (Polyp(s), colon/colorectal, esophageal, gastric) 08/22/2024 10:45 AM CDT Narrative PATHOLOGY [facility] - 08/23/2024 5:08 PM CDT EPIC results best viewed via link to PDF [facility] [place] [address] Note to Patients: This report may contain [...] Gender: F : 1955 (Age: 69) Address: [address] [place] [address] Hospital #: [id number] Taken:08/22/2024 Received:08/22/2024 Reported: 08/23/2024 Patient Type: [facility] Inpatient Service: Gynecology Location: [place] [address] Physician(s): Prakash Monahan M.D. Diagnosis: A. Large bowel, cecal polyp, biopsy - Tubular adenoma. B. Large bowel, ascending colon polyp, biopsy - Tubular adenoma. C. Large bowel, ascending colon polyp, biopsy - Sessile serrated adenoma/lesion. D. Large bowel, descending colon polyp, biopsy - Tubular adenoma. E. Large bowel, rectal polyp, biopsy - Hyperplastic polyp. 08/23/2024 09:28 By this signature, I attest that [...] in greatest dimension. Labeled E1. Jar 0. [facility]08/22/2024 12:48 PA(s): Thu Gutierres By this signature, I attest that the above diagnosis is based upon my personal examination of the slides(and/or other material). Addenda/Procedures The performance characteristics of some immunohistochemical stains, fluorescence in-situ hybridization tests and immunophenotyping by flow cytometry cited in this report (if any) were determined by the Surgical Pathology and Flow Cytometry Departments at [facility] as part of an ongoing quality assurance/r&d lab technician program and in compliance with federally mandated [...] Surgical Pathology and Flow Cytometry Departments of [facility]. It has not been cleared or approved by the U. S. Food and Drug Administration. IMAGES AND SCANNED DOCUMENTS, IF INCLUDED, ONLY VIEWABLE IN PDF VERSION OF REPORT us Darius Lindo MD LAB PATHOLOGY ORDERABLES F inal Result PATHOLOGY [facility] 3rd Floor [place], [place] [phone] * Colonoscopy (08/22/2024 9:46 AM CDT) Anatomical Region Laterality Modality Other Narrative Procedure Note Darius Lindo MD - 08/22/2024 9:46 AM CDT GI ENDOSCOPY [facility] Patient Name: Rhonda Wiseman Procedure Date: 08/22/2024 9:46 AM Date of : 1955 Admit Type: Inpatient Age: 69 Gender: Female Attending MD: Darius Lindo M.D. Room: [facility] ENDOSCOPY ROOM 3 Note Status: Finalized [...] The scope was passed under direct vision.The [id number] endoscope was introduced through the anus and advanced to the cecum, identified by appendiceal orifice and ileocecal valve. The bowel preparation used was GoLYTELY via split dose instruction. The quality of the bowel preparationwas evaluated using the BBPS ([place] Bowel Preparation Scale) with scores of: Right [...] one hemostatic clip was successfully placed (MR PluggedIn). 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 There was no bleeding at the end [...] retrieved. Clip (MR conditional) was placed. 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 - One 14 mm polyp in the [...] Electronically signed by Darius Lindo M.D. Darius Lidno M.D. 08/22/2024 11:00:59 AM . Number of Addenda: 0 Note Initiated On: 08/22/2024 9:46 AM Darius Lindo MD ENDOSCOPY PROCEDURES Final Result * POCT glucose (08/22/2024 9:40 AM CDT) Glucose, POC 82 70 - 199 mg/dL Blood 08/22/2024 9:40 AM CDT 08/22/2024 9:40 AM CDT Quynh Mims MD LAB POCT ORDERABLES - DEVICE Final Result Performing Organization Address [facility] Co de Phone Number [facility] [place] [address] * POCT glucose (08/22/2024 7:46 AM CDT) Glucose, POC 82 70 - 199 mg/dL Blood 08/22/2024 7:46 AM CDT 08/22/2024 7:46 AM CDT Quynh Mims MD LAB POCT ORDERABLES - DEVICE Final Result Performing Organization Address [facility] Co de Phone Number [facility] [place] [address] * Potassium, whole blood (08/22/2024 5:57 AM CDT) Potassium, bld 3.8 3.3 - 4.9 mmol/L Blood 08/22/2024 5:57 AM CDT 08/22/2024 6:13 AM CDT Narrative [facility] - 08/22/2024 6:13 AM CDT Whenever K Repletion finished Quynh Mims MD LAB BLOOD ORDERABLES Final Result [facility] [place] [address] * eGFR (08/21/2024 9:04 PM CDT) Pathologist [facility] eGFR 66 >=60 mL/min/1. 73 m2 Comment: [...] BLOOD ORDERABLES Final Result Performing Organization Address City/[facility]/ZIP Co de Phone Number [facility] [place] [address] * (ABNORMAL) aPTT (08/21/2024 9:04 PM CDT) [...] BLOOD ORDERABLES Final Result Performing Organization Address City/[facility] Co de Phone Number [facility] [place] [address] * (ABNORMAL) Protime-INR (08/21/2024 9:04 PM CDT) Pathologist [facility] PT 13.7(H) 9.7 - 13.0 sec INR 1.26(H) 0.90 - 1.20 [facility] Comment: Interpretive data Oral anticoagulant therapeutic ranges: Venous thromboembolism prophylaxis or treatment: 2.0-3.0 CARDIOLOGY Standard range: 2.0-3.0 High-intensity range: 2.5-3.5 Refer to indication-specific guidelines for appropriate target ranges for prosthetic heart valve replacement. Current interpretive data was last revised on 2019. Blood 08/21/2024 9:04 PM CDT 08/21/2024 10:09 PM CDT Quynh Mims MD LAB BLOOD ORDERABLES Final Result Performing Organization Address City/[facility]/ZIP Co de Phone Number [facility] [place] [address] * (ABNORMAL) CBC without differential (08/21/2024 9:04 PM CDT) WBC 10.30(H) 3.80 - 9.90 K/cumm Hgb 8.8(L) 11.9 - 15.5 g/dL [facility] Hct 25.5(L) 35.6 - 45.5 % [facility] Plt 175 150 - 400 K/cumm [facility] MPV 11.6 9.1 - 12.3 fL [facility] RBC 2.91(L) 3.90 - 5.20 M/cumm [facility] MCV 87.6 81.3 - 96.4 fL [facility] MCH 30.2 27.1 - 33.3 pg [facility] MCHC 34.5 32.3 - 35.7 g/dL [facility] RDW CV 15.8(H) 11.1 - 14.9 % [facility] RDW SD 49.1(H) 35.7 - 48.1 fL [facility] NRBC abs 0.00 0.00 - 0.01 K/cumm [facility] Blood 08/21/2024 9:04 PM CDT 08/21/2024 9:57 PM CDT Darius Lindo MD LAB BLOOD ORDERABLES Final Result Performing Organization Address City/[facility] Co de Phone Number [facility] [place] [address] * Phosphorus (08/21/2024 9:04 PM CDT) [facility] Phosphorus, pl 2.6 2.3 - 4.5 mg/dL Blood 08/21/2024 9:04 PM CDT 08/21/2024 9:56 PM CDT us Darius Lindo MD LAB BLOOD ORDERABLES Final Result [facility] [place] [address] * Magnesium (08/21/2024 9:04 PM CDT) Magnesium 1.8 1.4 - 2.5 mg/dL Blood 08/21/2024 9:04 PM CDT 08/21/2024 9:56 PM CDT Quynh Mims MD LAB BLOOD ORDERABLES Final Result [facility] [place] [address] * (ABNORMAL) Basic metabolic panel (08/21/2024 9:04 PM CDT) [facility] Sodium 142 135 - 145 mmol/L Potassium, pl 3.4 3.3 - 4.9 mmol/L [facility] Chloride 108 97 - 110 mmol/L [facility] CO2 23 22 - 32 mmol/L [facility] Anion gap 11 2 - 15 mmol/L [facility] BUN 9 6 - 25 mg/dL [facility] Creatinine 0.95 0.60 - 1.10 mg/dL [facility] Glucose 74 70 - 199 mg/dL [facility] Comment: Interpretive Data Fasting glucose >/= [...] 2022. Calcium 8.2(L) 8.5 - 10.3 mg/dL [facility] Blood 08/21/2024 9:04 PM CDT 08/21/2024 9:56 PM CDT Darius Lindo MD LAB BLOOD ORDERABLES Final Result Performing Organization Address [facility]/ZIP Co de Phone Number [facility] [address] * POCT glucose (08/21/2024 8:44 PM CDT) Glucose, POC 96 70 - 199 mg/dL Blood 08/21/2024 8:44 PM CDT 08/21/2024 8:44 PM CDT us Quynh Mims MD LAB POCT ORDERABLES - DEVICE Final Result Performing Organization Address [facility] [place] [address] * POCT glucose (08/21/2024 5:49 PM CDT) Glucose, POC 98 70 - 199 mg/dL Blood 08/21/2024 5:49 PM CDT 08/21/2024 5:49 PM CDT us Quynh Mims MD LAB POCT ORDERABLES - DEVICE Final Result Performing Organization Address [facility] [place] [address] * POCT glucose (08/21/2024 12:27 PM CDT) Glucose, POC 138 70 - 199 mg/dL Blood 08/21/2024 12:2 7 PM CDT 08/21/2024 12:27 PM CDT us Quynh Mims MD LAB POCT ORDERABLES - DEVICE Final Result Performing Organization Address [facility] [place] [address] * MRI Pelvis W WO Contrast (08/21/2024 [...] cyst in the sacral canal. Procedure Note Jelani, Kali Edward, MD PhD - 08/22/2024 EXAMINATION: MAGNETIC RESONANCE [...] it. Electronically signed by: Kali Palomares M.D. Quynh Mims MD IMG MRI PROCEDURES F inal Result * POCT glucose (08/21/2024 7:35 AM CDT) [facility] Glucose, POC 144 70 - 199 mg/dL Blood 08/21/2024 7:35 AM CDT 08/21/2024 7:35 AM CDT Quynh Mims MD LAB POCT ORDERABLES - DEVICE Final Result Performing Organization Address [facility] de Phone Number [facility] Department [place] [address] * (ABNORMAL) CBC without differential (08/21/2024 6:43 AM CDT) [facility] WBC 9.46 3.80 - 9.90 K/cumm Hgb 8.3(L) 11.9 - 15.5 g/dL [facility] Hct 24.2(L) 35.6 - 45.5 % [facility] Plt 167 150 - 400 K/cumm [facility] MPV 11.4 9.1 - 12.3 fL [facility] RBC 2.78(L) 3.90 - 5.20 M/cumm [facility] MCV 87.1 81.3 - 96.4 fL [facility] MCH 29.9 27.1 - 33.3 pg [facility] MCHC 34.3 32.3 - 35.7 g/dL [facility] RDW CV 15.9(H) 11.1 - 14.9 % [facility] RDW SD 49.6(H) 35.7 - 48.1 fL [facility] NRBC abs 0.00 0.00 - 0.01 K/cumm [facility] Blood 08/21/2024 6:43 AM CDT 08/21/2024 7:12 AM CDT us Quynh Mims MD LAB BLOOD ORDERABLES Final Result Performing Organization Address [facility]/ZIP Co de Phone Number [facility] Department [place] [address] * Transfuse RBC (08/21/2024 2:13 AM CDT) Blood Quynh Mims MD BLOOD TRANSFUSION OR DERABLES Final Result Performing Organization Address [facility] [place] [address] * Prepare RBC: 1 Units (08/20/2024 11:19 PM CDT) Product code [id number] Unit Number [id number] [facility] Product Blood Type APOS [facility] Dispense Status PRESUMED TRANSFUSED [facility] Blood 08/20/2024 11:1 9 PM CDT 08/20/2024 11:19 PM CDT Narrative [facility] - 08/21/2024 4:01 PM CDT Are special requirements needed? (All products are leukoreduced and CMV- safe)- >No Date required:-[id number] LRRBC # of Unyfg-4-Dnqyh Reasons:-Hgb <7 g/dL} Quynh Mims MD BLOOD BANK PRODUCT O RDERABLES Final Result Performing Organization Address [facility] [place] [address] * (ABNORMAL) eGFR (08/20/2024 8:55 PM CDT) [...] Mims MD LAB BLOOD ORDERABLES Final Result [facility] [address] Department [place] [address] * (ABNORMAL) CBC without differential (08/20/2024 8:55 PM CDT) WBC 9.85 3.80 - 9.90 K/cumm Hgb 6.9(L) 11.9 - 15.5 g/dL [facility] Hct 20.1(L) 35.6 - 45.5 % [facility] Plt 164 150 - 400 K/cumm [facility] MPV 11.4 9.1 - 12.3 fL [facility] RBC 2.31(L) 3.90 - 5.20 M/cumm [facility] MCV 87.0 81.3 - 96.4 fL [facility] MCH 29.9 27.1 - 33.3 pg [facility] MCHC 34.3 32.3 - 35.7 g/dL [facility] RDW CV 16.8(H) 11.1 - 14.9 % [facility] RDW SD 51.7(H) 35.7 - 48.1 fL [facility] NRBC abs 0.02(H) 0.00 - 0.01 K/cumm [facility] Blood 08/20/2024 8:55 PM CDT 08/20/2024 9:49 PM CDT Darius Lindo MD LAB BLOOD ORDERABLES Final Result Performing Organization Address [facility] Co de Phone Number [facility] [place] [address] * Phosphorus (08/20/2024 8:55 PM CDT) Pathologist [facility] Phosphorus, pl 3.0 2.3 - 4.5 mg/dL Blood 08/20/2024 8:55 PM CDT 08/20/2024 9:48 PM CDT Darius Lindo MD LAB BLOOD ORDERABLES Final Result Performing Organization Address [facility] de Phone Number [facility] [place] [address] * Magnesium (08/20/2024 8:55 PM CDT) [facility] Magnesium 1.9 1.4 - 2.5 mg/dL Blood 08/20/2024 8:55 PM CDT 08/20/2024 9:48 PM CDT Quynh Mims MD LAB BLOOD ORDERABLES Final Result Performing Organization Address [facility] de Phone Number [facility] [place] [address] * (ABNORMAL) Basic metabolic panel (08/20/2024 8:55 PM CDT) Pathologist [facility] Sodium 140 135 - 145 mmol/L Potassium, pl 3.8 3.3 - 4.9 mmol/L [facility] Chloride 111(H) 97 - 110 mmol/L [facility] CO2 22 22 - 32 mmol/L [facility] Anion gap 7 2 - 15 mmol/L [facility] BUN 17 6 - 25 mg/dL [facility] Creatinine 1.09 0.60 - 1.10 mg/dL [facility] Glucose 210(H) 70 - 199 mg/dL [facility] Comment: Interpretive Data Fasting glucose >/= [...] 2022. Calcium 7.8(L) 8.5 - 10.3 mg/dL [facility] Blood 08/20/2024 8:55 PM CDT 08/20/2024 9:48 PM CDT Darius Lindo MD LAB BLOOD ORDERABLES Final Result Performing Organization Address City/[facility]/ZIP Co de Phone Number [facility] [place] [address] * (ABNORMAL) POCT glucose (08/20/2024 8:54 PM CDT) Glucose, POC 258(H) 70 - 199 mg/dL Blood 08/20/2024 8:54 PM CDT 08/20/2024 8:54 PM CDT us Quynh Mims MD LAB POCT ORDERABLES - DEVICE Final Result [facility] [place] [address] * (ABNORMAL) POCT glucose (08/20/2024 4:48 PM CDT) Glucose, POC 210(H) 70 - 199 mg/dL Blood 08/20/2024 4:48 PM CDT 08/20/2024 4:48 PM CDT us Quynh Mims MD LAB POCT ORDERABLES - DEVICE Final Result [facility] [place] [address] * POCT glucose (08/20/2024 12:24 PM CDT) [facility] Glucose, POC 105 70 - 199 mg/dL Blood 08/20/2024 12:2 4 PM CDT 08/20/2024 12:24 PM CDT us Quynh Mims MD LAB POCT ORDERABLES - DEVICE Final Result Performing Organization Address [facility] de Phone Number [facility] [place] [address] * (ABNORMAL) CBC without differential (08/20/2024 5:15 AM CDT) [facility] WBC 14.24(H) 3.80 - 9.90 K/cumm Hgb 7.5(L) 11.9 - 15.5 g/dL [facility] Hct 22.3(L) 35.6 - 45.5 % [facility] Plt 170 150 - 400 K/cumm [facility] MPV 11.3 9.1 - 12.3 fL [facility] RBC 2.53(L) 3.90 - 5.20 M/cumm [facility] MCV 88.1 81.3 - 96.4 fL [facility] MCH 29.6 27.1 - 33.3 pg [facility] MCHC 33.6 32.3 - 35.7 g/dL [facility] RDW CV 16.1(H) 11.1 - 14.9 % [facility] RDW SD 50.4(H) 35.7 - 48.1 fL [facility] NRBC abs 0.03(H) 0.00 - 0.01 K/cumm [facility] Blood 08/20/2024 5:15 AM CDT 08/20/2024 6:10 AM CDT us Quynh Mims MD LAB BLOOD ORDERABLES Final Result Performing Organization Address [facility] de Phone Number [facility] [place] [address] * (ABNORMAL) Hemoglobin A1c (08/20/2024 5:15 AM CDT) Hgb A1C 7.0(H) 4.0 - 5.6 % Estimated Average Glucose 154 mg/dL [facility] Comment: The ADA recommends reporting an estimated Average Glucose (eAG) with all Hemoglobin A1c results using the equation derived from a study of 507 normal and diabetic adults. Minority populations were underrepresented and children were not included. (Diabetes Care 2020; 43(S1): S66-S76). The eAG is not equivalent to a fasting glucose. Blood 08/20/2024 5:15 AM CDT 08/20/2024 6:14 AM CDT us Quynh Mims MD LAB BLOOD ORDERABLES Final Result Performing Organization Address [facility] [place] [address] * POCT glucose (08/20/2024 5:14 AM CDT) Glucose, POC 78 70 - 199 mg/dL Blood 08/20/2024 5:14 AM CDT 08/20/2024 5:14 AM CDT us Quynh Mims MD LAB POCT ORDERABLES - DEVICE Final Result Performing Organization Address [facility] Co de Phone Number [facility] [place] [address] * eGFR (08/19/2024 11:58 PM CDT) Pathologist [facility] eGFR 60 >=60 mL/min/1. 73 m2 Comment: [...] Mims MD LAB BLOOD ORDERABLES Final Result [facility] [address] Department [place] [address] * (ABNORMAL) CBC without differential (08/19/2024 11:58 PM CDT) [facility] WBC 13.63(H) 3.80 - 9.90 K/cumm Hgb 7.1(L) 11.9 - 15.5 g/dL [facility] Hct 21.3(L) 35.6 - 45.5 % [facility] Plt 166 150 - 400 K/cumm [facility] MPV 11.4 9.1 - 12.3 fL [facility] RBC 2.42(L) 3.90 - 5.20 M/cumm [facility] MCV 88.0 81.3 - 96.4 fL [facility] MCH 29.3 27.1 - 33.3 pg [facility] MCHC 33.3 32.3 - 35.7 g/dL [facility] RDW CV 15.9(H) 11.1 - 14.9 % [facility] RDW SD 50.1(H) 35.7 - 48.1 fL [facility] NRBC abs 0.02(H) 0.00 - 0.01 K/cumm [facility] Blood 08/19/2024 11:5 8 PM CDT 08/20/2024 12:26 AM CDT Darius Lindo MD LAB BLOOD ORDERABLES Final Result Performing Organization Address City/[facility]/ZIP Co de Phone Number [facility] [place] [address] * Phosphorus (08/19/2024 11:58 PM CDT) Phosphorus, pl 3.1 2.3 - 4.5 mg/dL Blood 08/19/2024 11:5 8 PM CDT 08/20/2024 12:17 AM CDT Darius Lindo MD LAB BLOOD ORDERABLES Final Result Performing Organization Address [facility] Co de Phone Number [facility] [place] [address] * Magnesium (08/19/2024 11:58 PM CDT) Magnesium 2.0 1.4 - 2.5 mg/dL Blood 08/19/2024 11:5 8 PM CDT 08/20/2024 12:17 AM CDT Quynh Mims MD LAB BLOOD ORDERABLES Final Result Performing Organization Address City/[facility] Co de Phone Number [facility] [place] [address] * (ABNORMAL) Lipid panel (08/19/2024 11:58 PM [...] revised on 2017. Triglycerides 99 <=149 mg/dL [facility] Comment: Interpretive Data Ages < or = [...] revised on 2017. HDL 30(L) >=40 mg/dL [facility] Comment: Interpretive Data Ages < or = [...] 2017. LDL, calculated 42 <=129 mg/dL [facility] Comment: Interpretive Data Ages < or = [...] revised on 2023. Non-HDL Cholesterol 61 mg/dL [facility] Comment: Interpretive Data Ages < or [...] last revised on 2017. Chol/HDL ratio 3 [facility] Blood 08/19/2024 11:5 8 PM CDT 08/20/2024 12:26 AM CDT Narrative [facility] - 08/20/2024 8:24 AM CDT reflex us Quynh Mims MD LAB BLOOD ORDERABLES Final Result [facility] [address] [place] [address] * (ABNORMAL) Basic metabolic panel (08/19/2024 11:58 PM CDT) Sodium 143 135 - 145 mmol/L Potassium, pl 3.3 3.3 - 4.9 mmol/L [facility] Chloride 112(H) 97 - 110 mmol/L [facility] CO2 23 22 - 32 mmol/L [facility] Anion gap 8 2 - 15 mmol/L [facility] BUN 21 6 - 25 mg/dL [facility] Creatinine 1.03 0.60 - 1.10 mg/dL [facility] Glucose 82 70 - 199 mg/dL [facility] Comment: Interpretive Data Fasting glucose >/= [...] 2022. Calcium 8.1(L) 8.5 - 10.3 mg/dL [facility] Blood 08/19/2024 11:5 8 PM CDT 08/20/2024 12:17 AM CDT us Quynh Mims MD LAB BLOOD ORDERABLES Final Result Performing Organization Address City/[facility]/ZIP Co de Phone Number [facility] [place] [address] * POCT glucose (08/19/2024 11:57 PM CDT) [facility] Signature Glucose, POC 87 70 - 199 mg/dL Blood 08/19/2024 11:5 7 PM CDT 08/19/2024 11:57 PM CDT us Quynh Mims MD LAB POCT ORDERABLES - DEVICE Final Result Performing Organization Address City/[facility]/ZIP Co de Phone Number [facility] [place] [address] * Transfuse RBC (08/19/2024 10:44 PM CDT) Blood Result Rene Mims MD BLOOD TRANSFUSION OR DERABLES Final Result Performing Organization Address [facility] de Phone Number [facility] [place] [address] * POCT glucose (08/19/2024 8:26 PM CDT) Glucose, POC 153 70 - 199 mg/dL Blood 08/19/2024 8:26 PM CDT 08/19/2024 8:26 PM CDT Result Rene Mims MD LAB POCT ORDERABLES - DEVICE Final Result Performing Organization Address [facility] de Phone Number [facility] [place] [address] * Transfuse RBC (08/19/2024 6:55 PM CDT) Blood Result Rene Mims MD BLOOD TRANSFUSION OR DERABLES Final Result Performing Organization Address [facility] de Phone Number [facility] [place] [address] * POCT glucose (08/19/2024 4:51 PM CDT) Glucose, POC 127 70 - 199 mg/dL Blood 08/19/2024 4:51 PM CDT 08/19/2024 4:51 PM CDT Result Rene Mims MD LAB POCT ORDERABLES - DEVICE Final Result Performing Organization Address [facility] de Phone Number [facility] [place] [address] * CT Abdomen Pelvis W WO Contrast [...] Units (08/19/2024 2:37 PM CDT) Product code [id number] Unit Number [id number] [facility] Product Blood Type APOS [facility] Dispense Status PRESUMED TRANSFUSED [facility] Product code [id number] [facility] Unit Number [id number] [facility] Product Blood Type APOS [facility] Dispense Status PRESUMED TRANSFUSED [facility] Blood 08/19/2024 2:37 PM CDT 08/19/2024 2:37 PM CDT Narrative [facility] - 08/20/2024 8:03 AM CDT Are special requirements needed? (All products are leukoreduced and CMV- safe)- >No Date required:-[id number] LRRBC # of Syqhi-4-Dgfxt Reasons:-Hgb <7 g/dL} us Quynh Mims MD BLOOD BANK PRODUCT O RDERABLES Final Result [facility] [address] Department [place] [address] * (ABNORMAL) eGFR (08/19/2024 1:54 PM CDT) Pathologist [facility] eGFR 57(L) >=60 mL/min/1. 73 m2 Comment: [...] Mims MD LAB BLOOD ORDERABLES Final Result [facility] [address] Department [place] [address] * (ABNORMAL) Differential, auto (08/19/2024 1:54 PM CDT) Neutrophil abs 8.26(H) 1.50 - 6.50 K/cumm Imm gran abs 0.12(H) 0.00 - 0.10 K/cumm [facility] Lymphocyte abs 2.15 0.80 - 3.30 K/cumm [facility] Monocyte abs 0.82(H) 0.20 - 0.80 K/cumm [facility] Eosinophil abs 0.11 0.00 - 0.50 K/cumm [facility] Basophil abs 0.02 0.00 - 0.10 K/cumm [facility] Neutrophil pct 72.0 % [facility] Comment: Interpretive Data Percent cell count reference ranges are not reported, since discordance with absolute values may lead to misinterpretation of CBC data. Current Interpretive Data was last revised on 2017. Imm gran pct 1.0 % [facility] Comment: Interpretive Data Percent cell count reference ranges are not reported, since discordance with absolute values may lead to misinterpretation of CBC data. Current Interpretive Data was last revised on 2017. Lymphocyte pct 18.7 % [facility] Comment: Interpretive Data Percent cell count reference ranges are not reported, since discordance with absolute values may lead to misinterpretation of CBC data. Current Interpretive Data was last revised on 2017. Monocyte pct 7.1 % [facility] Comment: Interpretive Data Percent cell count reference ranges are not reported, since discordance with absolute values may lead to misinterpretation of CBC data. Current Interpretive Data was last revised on 2017. Eosinophil pct 1.0 % [facility] Comment: Interpretive Data Percent cell count reference ranges are not reported, since discordance with absolute values may lead to misinterpretation of CBC data. Current Interpretive Data was last revised on 2017. Basophil pct 0.2 % [facility] Comment: Interpretive Data Percent cell count reference ranges are not reported, since discordance with absolute values may lead to misinterpretation of CBC data. Current Interpretive Data was last revised on 2017. Blood 08/19/2024 1:54 PM CDT 08/19/2024 2:17 PM CDT us Quynh Mims MD LAB BLOOD ORDERABLES Final Result [facility] [address] Department [place] [address] * (ABNORMAL) CBC with auto differential (08/19/2024 1:54 PM CDT) WBC 11.48(H) 3.80 - 9.90 K/cumm Hgb 4.6(C) 11.9 - 15.5 g/dL [facility] Comment:This result has been called to MONTSERRAT DE LEÓN RN by [email or web address] on 08/19/2024 14:32:32, and has been read back. Hct 14.2(L) 35.6 - 45.5 % [facility] Plt 166 150 - 400 K/cumm [facility] MPV 11.5 9.1 - 12.3 fL [facility] RBC 1.54(L) 3.90 - 5.20 M/cumm [facility] MCV 92.2 81.3 - 96.4 fL [facility] MCH 29.9 27.1 - 33.3 pg [facility] MCHC 32.4 32.3 - 35.7 g/dL [facility] RDW CV 16.6(H) 11.1 - 14.9 % [facility] RDW SD 54.9(H) 35.7 - 48.1 fL [facility] NRBC abs 0.00 0.00 - 0.01 K/cumm [facility] Blood 08/19/2024 1:54 PM CDT 08/19/2024 2:17 PM CDT us Quynh Mims MD LAB BLOOD ORDERABLES Final Result Performing Organization Address [facility] Co de Phone Number [facility] [place] [address] * (ABNORMAL) aPTT (08/19/2024 1:54 PM CDT) aPTT 27(L) 28 - 38 sec Comment: Interpretive Data Heparin therapeutic range: 66.0 - 100.0 seconds. Range based on correlation with therapeutic heparin activity range of 0.3 - 0.7 Units/mL. Current interpretive data was last revised on 2023. Blood 08/19/2024 1:54 PM CDT 08/19/2024 2:21 PM CDT Result [facility] Quynh Mims MD LAB BLOOD ORDERABLES Final Result Performing Organization Address [facility] [place] [address] * (ABNORMAL) Protime-INR (08/19/2024 1:54 PM CDT) PT 13.9(H) 9.7 - 13.0 sec INR 1.28(H) 0.90 - 1.20 [facility] Comment: Interpretive data Oral anticoagulant therapeutic ranges: Venous thromboembolism prophylaxis or treatment: 2.0-3.0 CARDIOLOGY Standard range: 2.0-3.0 High-intensity range: 2.5-3.5 Refer to indication-specific guidelines for appropriate target ranges for prosthetic heart valve replacement. Current interpretive data was last revised on 2019. Blood 08/19/2024 1:54 PM CDT 08/19/2024 2:21 PM CDT us Quynh Mims MD LAB BLOOD ORDERABLES Final Result Performing Organization Address [facility] [place] [address] * Type and screen (08/19/2024 1:54 PM CDT) ABO Rh A Positive Rmaon, indirect Negative [facility] Blood 08/19/2024 1:54 PM CDT 08/19/2024 2:26 PM CDT Narrative [facility] - 08/19/2024 3:17 PM CDT Has the patient had Daratumumab or Isatuximab in the past 6 months?->Unknown Quynh Mims MD LAB BLOOD BANK TEST ORDERABLES Final Result Performing Organization Address [facility] [place] [address] * Phosphorus (08/19/2024 1:54 PM CDT) Pathologist [facility] Phosphorus, pl 3.3 2.3 - 4.5 mg/dL Blood 08/19/2024 1:54 PM CDT 08/19/2024 2:14 PM CDT Darius Lindo MD LAB BLOOD ORDERABLES Final Result Performing Organization Address [facility] [place] [address] * Magnesium (08/19/2024 1:54 PM CDT) Pathologist [facility] Magnesium 2.1 1.4 - 2.5 mg/dL Blood 08/19/2024 1:54 PM CDT 08/19/2024 2:14 PM CDT Quynh Mims MD LAB BLOOD ORDERABLES Final Result [facility] [address] Department [place] [address] * (ABNORMAL) Comprehensive metabolic panel (08/19/2024 1:54 PM CDT) Sodium 143 135 - 145 mmol/L Potassium, pl 3.7 3.3 - 4.9 mmol/L [facility] Chloride 112(H) 97 - 110 mmol/L [facility] CO2 21(L) 22 - 32 mmol/L [facility] Anion gap 10 2 - 15 mmol/L [facility] BUN 25 6 - 25 mg/dL [facility] Creatinine 1.07 0.60 - 1.10 mg/dL [facility] Glucose 189 70 - 199 mg/dL [facility] Comment: Interpretive Data Fasting glucose >/= [...] 2022. Calcium 8.0(L) 8.5 - 10.3 mg/dL [facility] Bilirubin, total <0.2 0.1 - 1.2 mg/dL [facility] Protein, pl 5.7(L) 6.5 - 8.5 g/dL [facility] Albumin 3.5 3.5 - 5.0 g/dL [facility] Alk phos 52 40 - 130 Units/L [facility] ALT 15 7 - 45 Units/L [facility] AST 17 10 - 45 Units/L [facility] Blood 08/19/2024 1:54 PM CDT 08/19/2024 2:14 PM CDT us Quynh Mims MD LAB BLOOD ORDERABLES Final Result [facility] [address] Department [place] [address] * SCAN - LABS (08/19/2024 12:04 PM [...] * MISC-ORDER (08/02/2024 9:07 AM CDT) Result [facility] Historical Provider LAB BLOOD ORDERABLES Jo l [...] RIGHT breast was performed by a trained quality measurement specialist and by Dr. Hampton . BREAST PARENCHYMAL [...] RIGHT breast was performed by a trained quality measurement specialist and by Dr. Hampton . BREAST PARENCHYMAL [...] RIGHT breast was performed by a trained quality measurement specialist and by Dr. Hampton . BREAST PARENCHYMAL [...] RIGHT breast was performed by a trained quality measurement specialist and by Dr. Hampton . BREAST PARENCHYMAL [...] images may or may not represent the [place] source data set and thus may contain [...] OF OUTSIDE IMAGING FACILITY PERFORMING OUTSIDE IMAGING: [facility] EXAM(S) REVIEWED: 1. BILATERAL DIAGNOSTIC MAMMOGRAM WITH [...] OF OUTSIDE IMAGING FACILITY PERFORMING OUTSIDE IMAGING: [facility] EXAM(S) REVIEWED: 1. BILATERAL DIAGNOSTIC MAMMOGRAM WITH [...] images may or may not represent the [place] source data set and thus may contain changes which may lower the sensitivity of the second opinion interpretation. Dictated by: Marlena Petty M.D. The radiology attending physician has personally reviewed this study, and had reviewed and/or edited this written report and agrees with it. Electronically signed by: Estee Dowd M.D. Quynh Mims MD IMG MAMMO PROCEDURES Final Result * (ABNORMAL) Protime-INR (07/27/2024 11:41 AM CDT) PT 13.7(H) 9.7 - 13.0 sec INR 1.26(H) 0.90 - 1.20 [facility] Comment: Interpretive data Oral anticoagulant therapeutic ranges: Venous thromboembolism prophylaxis or treatment: 2.0-3.0 CARDIOLOGY Standard range: 2.0-3.0 High-intensity range: 2.5-3.5 Refer to indication-specific guidelines for appropriate target ranges for prosthetic heart valve replacement. Current interpretive data was last revised on 2019. Blood 07/27/2024 11:4 1 AM CDT 07/27/2024 1:07 PM CDT us Quynh Mims MD LAB BLOOD ORDERABLES Final Result [facility] [address] Department [place] [address] * SCAN - LABS (07/27/2024 9:02 AM [...] (Axial Sectra reconstruction images, image 102; Series 83550, image 19; Series 44125, image 71). Mild degree of scattered foci [...] (Axial Sectra reconstruction images, image 102; Series 99650, image 19; Series 39275, image 71). Mild degree of scattered foci [...] Rosalinda Galvez M.D. us Quynh Mims MD [facility] MRI PROCEDURES F inal Result * Breast Imaging US Outside Reference (07/15/2024 12:05 AM ELECTROPLATING WORKER) Impressions [facility] - 07/27/2024 2:25 PM CDT These images are for Reference purposes only and have not been reviewed by [facility]. There will be no report generated by a [facility] Radiologist. Narrative [facility] - 07/27/2024 2:25 PM CDT EXAMINATION: Images For Reference Purposes Only us Provider Transcribed Order IMG MAMMO PROCEDURES Final Result [facility] * Breast Imaging Diagnostic Outside Reference (07/15/2024 12:00 AM ELECTROPLATING WORKER) Impressions [facility] - 07/27/2024 2:25 PM CDT These images are for Reference purposes only and have not been reviewed by [facility]. There will be no report generated by a [facility] Radiologist. Narrative [facility] - 07/27/2024 2:25 PM CDT EXAMINATION: Images For Reference Purposes Only us Provider Transcribed Order IMG MAMMO PROCEDURES Final Result Performing Organization Address [facility] Co de Phone Number [email or web address] * SCAN - LABS (07/06/2024 11:14 AM ELECTROPLATING WORKER) Rachael Moncada RN Edited Resul t - Final * CT Chest Abdomen Pelvis W Contrast (07/06/2024 10:31 AM ELECTROPLATING WORKER) Anatomical Region Laterality Modality Body N/A Computed Tomogra phy 07/06/2024 11:5 3 AM ELECTROPLATING WORKER Impressions 07/06/2024 11:53 AM ELECTROPLATING WORKER 1. Increased thickness of the endometrial cavity. [...] Bunny Jarvis M.D. Narrative 07/06/2024 11:53 AM ELECTROPLATING WORKER EXAMINATION: Computed tomography of the chest, abdomen [...] Result * POCT creatinine (07/06/2024 10:11 AM ELECTROPLATING WORKER) Creatinine POC 1.1 0.6 - 1.1 mg/dL Blood 07/06/2024 10:1 1 AM ELECTROPLATING WORKER 07/06/2024 10:11 AM ELECTROPLATING WORKER Quynh Mims MD LAB POCT ORDERABLES - DEVICE Final Result KRYSTYNA ORTIZ [facility] [place] [address] * SCAN - LABS (07/04/2024 5:29 PM ELECTROPLATING WORKER) Rachael Moncada RN Edited Resul t - Final * SCAN - LABS (06/15/2024 5:37 PM ELECTROPLATING WORKER) Rachael Moncada RN Edited Resul t - Final * SCAN - LABS (06/13/2024 11:26 AM ELECTROPLATING WORKER) Rachael Moncada RN Final Result from Last 3 Months Insurance [facility] MEDICARE [facility] MEDICARE [id number] Advance Directives For more information, please contact: [phone] * Full Code (Latest Code Status on File) Date Activated Date Inactivated Comments 08/19/2024 1:31 PM 08/22/2024 6:55 PM * Full Code Date Activated Date Inactivated Comments 10/23/2023 7:57 AM 10/23/2023 1:38 PM Care Teams Check Embosser Relationship Specialty Start Date End Date Andrea Chandler MD PCP - General Internal Medicine 03/31/23
--- OUTSIDE RECORDS SUMMARY | 2024-09-05 11:36 | XMS_ITS | Clinical Summary ---
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 A 5 mm ground-glass nodule [...] as described above. Narrative 04/13/2019 9:43 AM RESCUE WORKER EXAM DESCRIPTION: CT CHEST W/O CONTRAST REASON [...] Rojelio Yun M.D. RL: DEVIN Report ID: [id number] Reading Location: [id number] Procedure Note Rojelio Yun MD - 04/13/2019 [...] Rojelio Yun M.D. RL: DEVIN Report ID: [id number] Reading Location: [id number] IMPRESSION: 1. A 5 mm ground-glass nodule [...] Insurance MEDICAID [place] [id number] Care Teams Catering Assistant Relationship Specialty Start Date End Date Emery Higgins DO [address] [place] [address] PCP - General Internal Medicine 07/13/18
[2024-09-05 11:45] LABS: Alanine Aminotransferase 21 U/L (14-59); Albumin Level 3.5 g/dL (3.4-5.0); Alkaline Phosphatase 87 U/L (46-116); Anion Gap 10 mmol/L (4-12); Aspartate Amino Transferase 10 U/L (15-37); Bilirubin,Total 0.4 mg/dL (0.00-1.00); Blood Urea Nitrogen 23 mg/dL (7-18); Calcium 8.9 mg/dL (8.5-10.1); Carbon Dioxide 26 mmol/L (21-32); Chloride 104 mmol/L (98-108); Estimated Glomerular Filt Rate 52; Free T4 Free Thyroxine 1.11 ng/dL (0.76-1.46); Glucose 244 mg/dL (70-99); Magnesium 1.8 mg/dL (1.8-2.4); Osmolality Calculated 301 mOsm/kg (285-295); Sodium 140 mmol/L (136-145); Thyroid Stimulating Hormone 12.57 uIU/mL (0.36-3.74); Total Protein 6.5 g/dL (6.4-8.2)
[2024-09-06 19:58] LABS: CA-125 102 U/mL (<35)
== END 2024-09-05 10:10 | disposition home or self-care (01) ==
PROVIDERS: PCP Internal Medicine
DX: C54.1 Malignant neoplasm of endometrium (principal); E11.9 Type 2 diabetes mellitus without complications
CPT/HCPCS: 36415; 80053; 83735; 84439; 84443; 85025; 86304

== ENCOUNTER 2024-09-27 11:33 | Outpatient (CLI) | payer MEDICARE, SELFPAY ==
--- OUTSIDE RECORDS SUMMARY | 2024-09-27 11:38 | XMS_ITS | Patient Health Record ---
Author Organization [facility] Address [address] [place] [address] Care Team Providers Care Ballast Cleaning Operator Name Role Phone Madeline Benton Primary Care [...] Insured Coverage Start Date Coverage End Date [facility] [address] [place] [id number] Arti Corrigan Self - patient is the insured [employer] [place] [address] [place] [address] [id number] Arti Corrigan Self - patient is the insured Medical (General) History Medical History History ICD Code high blood pressure diabetes Surgical History Surgery Date(Month/Year) tonsils removed galbladder removed thumb
--- OUTSIDE RECORDS SUMMARY | 2024-09-27 11:38 | XMS_ITS | Encounter Summary ---
Author Organization [facility] Address [address] [place] [address] Phone Care Team Providers Care Caterpillar Operator Name Role Phone Andrea Chandler MD Primary Care Provider [phone] Encounter Details Date Type Department Care Team (Late st Contact Info) Description 09/27/[address] 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 No Reason for call?: Patient was initially scheduled for 09.26 but had to resched. Last minute because she was out of town. She has a new appt but it is for 11.14 pt was being seen as a 1 week follow-up, she was wondering if there is any way she could be seen sooner? Who is the caller: Arti Corrigan What is the best number for them to contact for a call back: [phone] Last office visit: Visit date not found Date of Surgery: 08/22/2024 documented in this encounter Plan of Treatment Not on file documented as of this encounter Visit Diagnoses Not on filedocumented in this encounter Care Teams Caterpillar Operator Relationship Specialty Start Date End Date Andrea Chandler MD PCP - General Internal Medicine 03/31/23 documented as of this encounter
--- OUTSIDE RECORDS SUMMARY | 2024-09-27 11:38 | XMS_ITS | Clinical Summary ---
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
--- OUTSIDE RECORDS SUMMARY | 2024-09-27 11:38 | XMS_ITS | Encounter Summary ---
Author Organization 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
--- OUTSIDE RECORDS SUMMARY | 2024-09-27 11:39 | XMS_ITS | Referral Summary ---
Author Organization [facility] [address] Address [address] [place] [address] Care Team Providers Care Insurance Auditor Name Role Phone Andrea Chandler MD Primary Care Provider [phone] Encounters Date Type Department Care Team Description 09/27/2024 Telephone [facility] Cardiothoracic Surgery [address] [place] [address] 8th Floor [address] Room [address] [place], [place] [phone] Berenice Lemos MD PhD 09/12/2024 2:30 PM CDT - 09/12/2024 11:59 PM CDT Hospital Encounter [facility] [address] [place] [address] Abscess of right breast Discharge Disposition: Discharge to home or self care 09/12/2024 Orders Only [facility] Surgery [address] [place] [phone] Berenice Lemos MD PhD Abscess of right breast (Primary Dx) 09/12/2024 1:00 PM CDT Office Visit [facility] Surgery [address] [place] [address] 8 [place] [phone] Berenice Lemos MD PhD Mammogram abnormal (Primary Dx) 09/07/2024 Orders Only OB ONCOLOGY Rachael Moncada RN 09/07/2024 2:00 PM CDT [facility] Gynecologic Oncology [facility] [facility] ([facility]) [address] [place], [place] [phone] Peritoneal carcinomatosis (HCC) (Primary Dx); Endometrial cancer (HCC) 09/06/2024 Orders Only [facility] OB ONCOLOGY Rachael Moncada RN 08/27/2024 Results Follow-Up [facility] Gastroenterology [facility] 12th [place] [address] [place] [address] Darius Lindo MD Surgical pathology 08/22/2024 9:46 AM CDT Anesthesia Event [address] [address] Gavin Jaimes MD Schappe, Elizabeth Mary, RESIDENT SERVICES SUPERVISOR 08/22/2024 10:45 AM CDT - 08/22/2024 11:25 AM CDT Surgery [address] [address] Darius Lindo MD COLON REMOVAL SNARE 08/19/2024 1:01 PM CDT - 08/22/2024 2:44 PM CDT Hospital Encounter [address] [phone] Quynh Mims MD Rectal bleeding (Primary Dx) Discharge Disposition: Discharge to home or self care 08/19/2024 Orders Only [facility] ONCOL[facility]Y Caridad Casanova, NADEGE 08/19/2024 Telephone [facility] Obstetrics and Gynecology [address] [place] [address] 13th [place] [phone] Rachael Moncada, RN 08/18/2024 Telephone [facility] Obstetrics and Gynecology [address] [place] [address] Medicine 13th [place] [address] Rachael Moncada, RN 08/18/2024 Orders Only [facility] Obstetrics and Gynecology [address] [place] [address] Medicine 13th [place] [address] Rachael Moncada, RN Endometrial cancer (HCC) (Primary Dx); Dizzy; Rectal bleeding 08/17/2024 Orders Only [facility] OB ONCOLOGY Rachael Moncada RN 08/17/2024 Orders Only [facility] Obstetrics and Gynecology [address] [facility] Advanced Medicine 13th [place] [address] Rosa Guevara MD 08/17/2024 1:00 PM CDT [facility] Gynecologic Oncology [facility] [address] [place] [address] Endometrial cancer (HCC) (Primary Dx); Peritoneal carcinomatosis (HCC) 08/16/2024 Orders Only [facility] OB ONCOLOGY Rachael Moncada RN 08/05/2024 Orders Only OB ONCOLOGY Rachael Moncada RN Endometrial cancer (HCC) (Primary Dx) 08/02/2024 Orders Only [facility] Obstetrics and Gynecology [address] [place] [address] Advanced Medicine 13th [place] [address] Rachael Moncada RN Abnormal breast finding (Primary Dx); Abnormal mammogram of right breast; Abscess of right breast 08/02/2024 Orders Only [facility] Obstetrics and Gynecology [address] [place] [address] Advanced Medicine 13th [place] [address] Rosa Guevara MD 08/01/2024 1:18 PM CDT - 08/01/2024 11:59 PM CDT Hospital Encounter [facility] - Breast Imaging [address] [facility] Floor 8 [place] [address] Abnormal mammogram Discharge Disposition: Discharge to home or self care 08/01/2024 1:18 PM CDT - 08/01/2024 11:59 PM CDT Hospital Encounter [facility] - Breast Imaging [address] [facility] Floor 8 [place] [address] Endometrial cancer (HCC); Abnormal breast finding Discharge Disposition: Discharge to home or self care 07/28/2024 Telephone [facility] Advanced Medicine Breast Imaging [place] [facility] ([facility]) [address] [place] [address] Sepideh Hernandez RN 07/27/2024 Telephone [facility] Advanced Medicine Breast Imaging [facility] ([facility]) [address] [place] [address] Enma Ortiz, NADEGE Appointment (Scheduling of breast biopsy) 07/27/[address] [facility] for [facility] Breast Imaging [facility] ([facility]) [address] [place] [address] Enma Ortiz, NADEGE Appointment (Scheduling of breast biopsy) 07/27/2024 Telephone [facility] Advanced Medicine Breast Imaging [facility] ([facility]) [address] [place] [address] Enma Ortiz, NADEGE Appointment (Scheduling of breast biopsy) 07/27/2024 11:50 AM CDT - 07/27/2024 11:59 PM CDT Hospital Encounter [facility] Radiology [facility] ([facility]) [address] [place] [address] Abnormal mammogram Discharge Disposition: Discharge to home or self care 07/27/2024 Documentation [facility] Obstetrics and Gynecology [address] [place] [address] Advanced Medicine 13th [place] [address] Rachael Moncada RN 07/27/2024 Orders Only [facility] Obstetrics and Gynecology [address] [place] [address] Advanced [facility] 13th [place] [address] Rachael Moncada RN Mass of temporal lobe (Primary Dx); Endometrial cancer (HCC) 07/27/2024 Orders Only [facility] Rachael Moncada, NADEGE 07/27/2024 11:30 AM CDT [facility] Gynecologic Oncology [facility] ([facility]) [address] [place] [address] Peritoneal carcinomatosis (HCC) (Primary Dx); Endometrial cancer (HCC); Encounter for preprocedural laboratory examination 07/27/2024 10:15 AM CDT Office Visit [facility] Obstetrics and Gynecology [address] [place] [address] Advanced Medicine 13th [place] [address] Quynh Mims MD Endometrial cancer (HCC) (Primary Dx); Encounter for preprocedural laboratory examination 07/25/2024 Orders Only [facility] Liane Cooper, NAEDGE 07/22/2024 Results Follow-Up [facility] Obstetrics and Gynecology [address] [facility] for [facility] Medicine 13th [place] [address] Rachael Moncada RN MRI Brain W WO Contrast 07/21/2024 Telephone [facility] Obstetrics and Gynecology [address] [facility] for [facility] 13th [place] [address] Rachael Moncada RN 07/20/2024 7:42 AM CDT - 07/20/2024 11:59 PM CDT Hospital Encounter [facility] Radiology [address] [place] [address] Quynh Mims MD Endometrial cancer (HCC); Frequent falls; Balance problem Discharge Disposition: Discharge to home or self care 07/15/2024 12:05 AM CONTRACTS PARALEGAL - 07/15/2024 11:59 PM CONTRACTS PARALEGAL Hospital Encounter [facility] Radiology [facility] ([facility]) [address] [place] [address] Discharge Disposition: Discharge to home or self care 07/15/2024 - 07/15/2024 11:59 PM CONTRACTS PARALEGAL Hospital Encounter [facility] Radiology [facility]) [address] [place] [address] Discharge Disposition: Discharge to home or self care 07/06/2024 Documentation [facility] Obstetrics and Gynecology [address] [facility] for [facility] 13th [place] [address] Rachael Moncada RN 07/06/2024 Orders Only [facility] Rachael Moncada, RN Abnormal breast finding (Primary Dx); Endometrial cancer (HCC); Frequent falls; Balance problem 07/06/2024 2:00 PM CONTRACTS [facility]GAL [facility] Gynecologic [facility]) [address] [place] [address] Endometrial cancer (HCC) (Primary Dx) 07/06/2024 1:00 PM CONTRACTS PARALEGAL Office Visit [facility] Obstetrics and Gynecology [address] [place] [address] for Advanced Medicine 13th [place] [address] Quynh Mims MD Endometrial cancer (HCC) 07/06/2024 9:39 AM CONTRACTS PARALEGAL - 07/06/2024 11:59 PM CONTRACTS PARALEGAL Hospital Encounter [facility] Radiology [facility] ([facility]) [address] [place] [address] Endometrial cancer (HCC); Chemotherapy management, encounter for Discharge Disposition: Discharge to home or self care 07/04/2024 Orders Only [facility] Rachael Moncada RN from Last 3 Months Allergies Active Allergy Reactions Criticality Noted Date Comments Paclitaxel Shortness of breath,Other (See comments),Flushing (skin) High 05/12/2023 Patient reports feeling hot and thought she was going to pass out, tightness in head Medications verapamil SR (CALAN SR) 240 mg CR tabletIndications: hypertension Take 1 tablet (240 mg total) by mouth every morning 04/15/20 23 Active montelukast (SINGULAIR) 10 mg tabletIndications: Seasonal Allergic Rhinitis Take 1 tablet (10 mg total) by mouth every evening 01/29/20 23 Active atorvastatin (LIPITOR) 10 mg tabletIndications: hyperlipidemia Take 1 tablet (10 mg total) by mouth nightly Active fexofenadine (Cherelle Allergy) 60 mg tabletIndications: Seasonal Allergic Rhinitis Take 1 tablet (60 mg total) by mouth every morning Active multivitamin (MULTIPLE VITAMINS ORAL)Indications:s upplement Take 1 tablet by mouth every morning Active ferrous sulfate 325 mg (65 mg of elemental iron) tabletIndications: Iron Deficiency Anemia Take 1 tablet (325 mg total) by mouth 2 (two) times a day 09/14/19 19 Active OLANZapine (ZyPREXA) 5 mg tabletIndications: Endometrial cancer (HCC) Take 1 tablet (5 mg total) by mouth daily Take on Days 2, 3, and 4 of each cycle. 9 tablet 1 05/04/20 23 Active ondansetron (ZOFRAN) 8 mg tabletIndications: Endometrial cancer (HCC) Take 1 tablet (8 mg total) by mouth every 8 (eight) hours as needed for nausea or vomiting May begin day 5 if needed. 30 tablet 3 05/04/20 23 Active neomycin (MYCIFRADIN) 500 mg tablet Take 2 tablets at 1 PM, 2 PM, and 10 PM the day before surgery. 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 Apply to damp skin, lather, leave on 5 minutes, and rinse 120 mL 1 10/19/19 24 Active insulin glargine 100 unit/mL (3 mL) pen for injection Inject 40 Units under the skin daily Active triamcinolone (KENALOG) 0.1 % ointmentIndication s:Tinea corporis Apply to area of rash/itching on the thigh twice daily. Avoid applying to face/armpits/gr oin. 454 g 1 03/10/20 24 Active TRESIBA 100 unit/mL (3 mL) pen for injection INJECT BY 30 UNITS SUBCUTANEOUS ROUTE AT BEDTIME 02/29/20 24 Active levothyroxine (SYNTHROID) 125 mcg tablet TAKE 2 TABS (250 MCG DOSE) BY ORAL ROUTE ONCE DAILY 04/28/[address] (CYMBALTA) 30 mg capsuleIndications :Endometrial cancer (HCC) Take 1 capsule (30 mg total) by mouth daily 30 capsule 11 06/15/19 25 026 Active megestroL (MEGACE) 40 mg tabletIndications: Endometrial Carcinoma Take 1 tablet (40 mg total) by mouth 2 (two) times a day 60 tablet 5 06/16/19 25 Active famotidine (PEPCID) 20 mg tabletIndications: Heartburn,gastroes ophageal reflux disease Take 1 tablet (20 mg total) by mouth daily 30 tablet 4 07/06/19 25 Active letrozole (FEMARA) 2.5 mg tabletIndications: Endometrial cancer (HCC),Peritoneal carcinomatosis (HCC) Take 1 tablet (2.5 mg total) by mouth daily 30 tablet 5 09/06/19 25 025 Active letrozole (FEMARA) 2.5 mg tablet Take 1 tablet (2.5 mg total) by mouth daily 30 tablet 5 05/17/19 25 025 Discontin ued(Reord er) Active Problems Problem Noted Date Diagnosed Date Mammogram abnormal 09/13/2024 Rectal bleeding 08/19/2024 Peritoneal carcinomatosis 11/06/2023 Type [...] on file Legal Sex Female 3:27 AM CONTRACTS PARALEGAL Gender Identity Not on file Sexual Orientation Not on file Last Filed Vital Signs Vital Sign Reading Time Taken Comments Blood Pressure 132/78 09/07/2024 1:29 PM CDT Pulse 82 09/07/2024 1:29 PM CDT Temperature 36.6 C (97.8 F) 09/07/2024 1:29 PM CDT Respiratory Rate 18 09/07/2024 1:29 PM CDT Oxygen Saturation 98% 09/07/2024 1:29 PM CDT Inhaled Oxygen Concentration - - Weight 85.5 kg (188 lb 6.4 oz) 09/12/2024 1:02 P M CDT Height 160 cm (5' 3 ) 09/12/2024 1:02 PM CDT Body Mass Index 33.37 09/12/2024 1:02 PM CDT Plan of Treatment Not on file Medical Devices Implanted Type Area Office Technology Instructor Device Identifier Shelf Expiration Date Model / Serial / Lot [employer] Excela Low Porfile Power Port 8fr 1.6mm 1 Lumen [id number] - [id number] Implanted:Qty: 1 on 05/06/2023 at [facility] [employer] 01/04/2028 [id number] / / [id number] Procedures Procedure Name Priority Date/Time Associated Diagnosis Comments AEROBIC AND ANAEROBIC CULTURE AND GRAM STAIN Routine 09/12/2024 5:58 PM CDT Abscess of right breast SCAN - LABS 09/07/2024 2:47 PM CDT SCAN - LABS 09/06/2024 10:11 PM CDT SCAN - LABS 09/05/2024 3:10 PM CDT POCT GLUCOSE DEVICE Routine 08/22/2024 12:23 PM [...] US OUTSIDE REFERENCE Routine 07/15/2024 12:05 AM CONTRACTS [employer]ALEGAL BREAST IMAGING MG DIAGNOSTIC OUTSIDE REFERENCE Routine 07/15/2024 12:00 AM CONTRACTS PARALEGAL SCAN - LABS 07/06/2024 11:[address] CHEST ABDOMEN PELVIS W CONTRAST Routine 07/06/2024 10:31 AM CONTRACTS PARALEGAL Endometrial cancer (HCC) Chemotherapy management, encounter for POCT CREATININE - DEVICE Routine 07/06/2024 10:11 AM CONTRACTS PARALEGAL SCAN - LABS 07/04/2024 5:29 PM CONTRACTS PARALEGAL from Last 3 Months Results * (ABNORMAL) Aerobic and anaerobic culture and gram stain Abscess Breast, right (09/12/2024 5:58 PM CDT) Direct Specimen Exam Stain: No polymorphonuclear leukocytes seen. No organisms seen. Report Final Report: Few Mixed aerobic and anaerobic microorganisms (.) [facility] Organism MIXED AEROBIC AND ANAEROBIC MICROORGANISMS [facility] Abscess (Breast, right) 09/12/2024 5:58 PM CDT 09/12/2024 6:36 PM CDT Narrative [facility] - 09/18/2024 1:28 PM CDT Specimen received on an ESwab. Testing performed by [facility] Microbiology Laboratory ([phone]) Specimens submitted from normally sterile body sites will have all bacterial morphotypes identified. Specimens that contain grossly mixed carlos and/or are from body sites that are not normally sterile will be examined for Staphylococcus aureus, Pseudomonas aeruginosa, beta-hemolytic strep, vancomycin-resistant Enterococcus, Bacteroides, Parabacteroides, Clostridium perfringens and fungus. If any of these are isolated, the organism will be reported. Current interpretive data was last revised on 2019. Berenice Lemos MD PhD LAB MICROBIOLOGY - GENERAL ORDERABLES Final Result [facility] Department [place] [address] * SCAN - LABS (09/07/2024 2:47 PM CDT) Rachael Moncada RN Final Result * SCAN - LABS (09/06/2024 10:11 PM CDT) Rachael Moncada RN Final Result * SCAN - LABS (09/05/2024 3:10 PM CDT) Racheal Moncada RN Final Result * POCT glucose (08/22/2024 12:23 PM CDT) Glucose, POC 89 70 - 199 mg/dL Blood 08/22/2024 12:2 3 PM CDT 08/22/2024 12:23 PM CDT us Quynh Mims MD LAB POCT ORDERABLES - DEVICE Final Result [facility] Department [place] [address] * Surgical pathology (08/22/2024 10:07 AM CDT) Tissue (Polyp(s), colon/colorectal, esophageal, gastric) 08/22/2024 10:07 AM CDT Tissue specimen (specimen) (Polyp(s), colon/colorectal, esophageal, gastric) 08/22/2024 10:09 AM CDT Tissue specimen (specimen) (Polyp(s), colon/colorectal, esophageal, gastric) 08/22/2024 10:21 AM CDT Tissue specimen (specimen) (Polyp(s), colon/colorectal, esophageal, gastric) 08/22/2024 10:33 AM CDT Tissue specimen (specimen) (Polyp(s), colon/colorectal, esophageal, gastric) 08/22/2024 10:45 AM CDT Narrative PATHOLOGY [facility] - 08/23/2024 5:08 PM CDT EPIC results best viewed via link to PDF [facility] [place] [address] Note to Patients: This report may contain [...] Gender: F : 1955 (Age: 69) Address: [address] [place] [phone] [facility] #: [id number] Taken:08/22/2024 Received:08/22/2024 Reported: 08/23/2024 Patient Type: [facility] Inpatient Service: Gynecology Location: [facility] 5900 Physician(s): Prakash Monahan M.D. Diagnosis: A. Large [...] in greatest dimension. Labeled E1. [facility]08/22/2024 12:48 PA(s): Thu Gutierres By this signature, I attest that the above diagnosis is based upon my personal examination of the slides(and/or other material). Addenda/Procedures The performance characteristics of some immunohistochemical stains, fluorescence in-situ hybridization tests and immunophenotyping by flow cytometry cited in this report (if any) were determined by the Surgical Pathology and Flow Cytometry Departments at [facility] as part of an ongoing manufacturing quality manager program and in compliance with federally mandated [...] Surgical Pathology and Flow Cytometry Departments of [facility]. It has not been cleared or approved by the U. S. Food and Drug Administration. IMAGES AND SCANNED DOCUMENTS, IF INCLUDED, ONLY VIEWABLE IN PDF VERSION OF REPORT us Darius Lindo MD LAB PATHOLOGY ORDERABLES F inal Result PATHOLOGY [facility] 3rd Floor [place], [place] [phone] * Colonoscopy (08/22/2024 9:46 AM CDT) Anatomical Region Laterality Modality Other Narrative Procedure Note Darius Lindo MD - 08/22/2024 9:46 AM CDT GI ENDOSCOPY [facility] Patient Name: Rhonda Wiseman Procedure Date: 08/22/2024 9:46 AM Date of : 1955 Admit Type: Inpatient Age: 69 Gender: Female Attending MD: Darius Lindo M.D. Room: [facility] ENDOSCOPY ROOM 3 Note Status: Finalized Procedure: [...] The scope was passed under direct vision.The CF [id number] endoscope was introduced through the anus and advanced to the cecum, identified by appendiceal orifice and ileocecal valve. The bowel preparation used was GoLYTELY via split dose instruction. The quality of the bowel preparationwas evaluated using the BBPS ([place] Bowel Preparation Scale) with scores of: Right [...] clip was successfully placed (MR conditional). 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 There was no bleeding at the end [...] retrieved. Clip (MR conditional) was placed. 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 - One 14 mm polyp in the [...] 9:40 AM CDT 08/22/2024 9:40 AM CDT us Quynh Mims MD LAB POCT ORDERABLES - DEVICE Final Result [facility] Department [place] [address] * POCT glucose (08/22/2024 7:46 AM CDT) Glucose, POC 82 70 - 199 mg/dL Blood 08/22/2024 7:46 AM CDT 08/22/2024 7:46 AM CDT us Quynh Mims MD LAB POCT ORDERABLES - DEVICE Final Result Performing Organization Address City/[facility] Co de Phone Number [facility] [place] [address] * Potassium, whole blood (08/22/2024 5:57 AM CDT) Potassium, bld 3.8 3.3 - 4.9 mmol/L Blood 08/22/2024 5:57 AM CDT 08/22/2024 6:13 AM CDT Narrative [facility] - 08/22/2024 6:13 AM CDT Whenever K Repletion finished us Quynh Mims MD LAB BLOOD ORDERABLES Final Result Performing Organization Address [facility] de Phone Number [facility] [place] [address] * eGFR (08/21/2024 9:04 PM CDT) Pathologist [facility] eGFR 66 >=60 mL/min/1. 73 m2 Comment: [...] BLOOD ORDERABLES Final Result Performing Organization Address [facility] Co de Phone Number [facility] [place] [address] * (ABNORMAL) aPTT (08/21/2024 9:04 PM CDT) aPTT 26(L) 28 - 38 sec Comment: Interpretive Data Heparin therapeutic range: 66.0 - 100.0 seconds. Range based on correlation with therapeutic heparin activity range of 0.3 - 0.7 Units/mL. Current interpretive data was last revised on 2023. Blood 08/21/2024 9:0 4 PM CDT 08/21/2024 10:09 PM CDT Result [facility] us Quynh Mims MD LAB BLOOD ORDERABLES Final Result Performing Organization Address [facility] [place] [address] * (ABNORMAL) Protime-INR (08/21/2024 9:04 PM CDT) PT 13.7(H) 9.7 - 13.0 sec INR 1.26(H) 0.90 - 1.20 [facility] Comment: Interpretive data Oral anticoagulant therapeutic ranges: Venous thromboembolism prophylaxis or treatment: 2.0-3.0 CARDIOLOGY Standard range: 2.0-3.0 High-intensity range: 2.5-3.5 Refer to indication-specific guidelines for appropriate target ranges for prosthetic heart valve replacement. Current interpretive data was last revised on 2019. Blood 08/21/2024 9:04 PM CDT 08/21/2024 10:09 PM CDT Result Rene Mims MD LAB BLOOD ORDERABLES Final Result Performing Organization Address [facility] de Phone Number [facility] Department [place] [address] * (ABNORMAL) CBC without differential (08/21/2024 9:04 PM CDT) Pathologist [facility] WBC 10.30(H) 3.80 - 9.90 K/cumm Hgb 8.8(L) 11.9 - 15.5 g/dL [facility] Hct 25.5(L) 35.6 - 45.5 % [facility] Plt 175 150 - 400 K/cumm [facility] MPV 11.6 9.1 - 12.3 fL [facility] RBC 2.91(L) 3.90 - 5.20 M/cumm [facility] MCV 87.6 81.3 - 96.4 fL [facility] MCH 30.2 27.1 - 33.3 pg [facility] MCHC 34.5 32.3 - 35.7 g/dL [facility] RDW CV 15.8(H) 11.1 - 14.9 % [facility] RDW SD 49.1(H) 35.7 - 48.1 fL [facility] NRBC abs 0.00 0.00 - 0.01 K/cumm [facility] Blood 08/21/2024 9:04 PM CDT 08/21/2024 9:57 PM CDT Darius Lindo MD LAB BLOOD ORDERABLES Final Result Performing Organization Address [facility] [facility] Co de Phone Number [facility] Department [place] [address] * Phosphorus (08/21/2024 9:04 PM CDT) Pathologist [facility] Phosphorus, pl 2.6 2.3 - 4.5 mg/dL Blood 08/21/2024 9:04 PM CDT 08/21/2024 9:56 PM CDT Darius Lindo MD LAB BLOOD ORDERABLES Final Result [facility] Department [place] [address] * Magnesium (08/21/2024 9:04 PM CDT) [facility] Magnesium 1.8 1.4 - 2.5 mg/dL Blood 08/21/2024 9:04 PM CDT 08/21/2024 9:56 PM CDT Quynh Mims MD LAB BLOOD ORDERABLES Final Result Performing Organization Address [facility] Co de Phone Number [facility] Department [place] [address] * (ABNORMAL) Basic metabolic panel (08/21/2024 9:04 PM CDT) [facility] Sodium 142 135 - 145 mmol/L Potassium, pl 3.4 3.3 - 4.9 mmol/L [facility] Chloride 108 97 - 110 mmol/L [facility] CO2 23 22 - 32 mmol/L [facility] Anion gap 11 2 - 15 mmol/L [facility] BUN 9 6 - 25 mg/dL [facility] Creatinine 0.95 0.60 - 1.10 mg/dL [facility] Glucose 74 70 - 199 mg/dL [facility] Comment: Interpretive Data Fasting glucose [...] 2022. Calcium 8.2(L) 8.5 - 10.3 mg/dL [facility] Blood 08/21/2024 9:04 PM CDT 08/21/2024 9:56 PM CDT Darius Lindo MD LAB BLOOD ORDERABLES Final Result Performing Organization Address [facility] Co de Phone Number [facility] [place] [address] * POCT glucose (08/21/2024 8:44 PM CDT) Glucose, POC 96 70 - 199 mg/dL Blood 08/21/2024 8:44 PM CDT 08/21/2024 8:44 PM CDT us Quynh Mims MD LAB POCT ORDERABLES - DEVICE Final Result Performing Organization Address [facility] de Phone Number [facility] [place] [address] * POCT glucose (08/21/2024 5:49 PM CDT) Glucose, POC 98 70 - 199 mg/dL Blood 08/21/2024 5:49 PM CDT 08/21/2024 5:49 PM CDT Quynh Mims MD LAB POCT ORDERABLES - DEVICE Final Result Performing Organization Address [facility] [place] [address] * POCT glucose (08/21/2024 12:27 PM CDT) Glucose, POC 138 70 - 199 mg/dL Blood 08/21/2024 12:2 7 PM CDT 08/21/2024 12:27 PM CDT us Quynh Mims MD LAB POCT ORDERABLES - DEVICE Final Result [facility] Department [place] [address] * MRI Pelvis W WO Contrast (08/21/2024 [...] * POCT glucose (08/21/2024 7:35 AM CDT) [facility] Glucose, POC 144 70 - 199 mg/dL Blood 08/21/2024 7:35 AM CDT 08/21/2024 7:35 AM CDT Quynh Mims MD LAB POCT ORDERABLES - DEVICE Final Result [facility] One [facility] Department [place] [address] * (ABNORMAL) CBC without differential (08/21/2024 6:43 AM CDT) [facility] WBC 9.46 3.80 - 9.90 K/cumm Hgb 8.3(L) 11.9 - 15.5 g/dL [facility] Hct 24.2(L) 35.6 - 45.5 % [facility] Plt 167 150 - 400 K/cumm [facility] MPV 11.4 9.1 - 12.3 fL [facility] RBC 2.78(L) 3.90 - 5.20 M/cumm [facility] MCV 87.1 81.3 - 96.4 fL [facility] MCH 29.9 27.1 - 33.3 pg [facility] MCHC 34.3 32.3 - 35.7 g/dL [facility] RDW CV 15.9(H) 11.1 - 14.9 % [facility] RDW SD 49.6(H) 35.7 - 48.1 fL [facility] NRBC abs 0.00 0.00 - 0.01 K/cumm [facility] Blood 08/21/2024 6:43 AM CDT 08/21/2024 7:12 AM CDT us Quynh Mims MD LAB BLOOD ORDERABLES Final Result Performing Organization Address [facility] [place] [address] * Transfuse RBC (08/21/2024 2:13 AM CDT) Blood us Quynh Mims MD BLOOD TRANSFUSION OR DERABLES Final Result Performing Organization Address [facility] [place] [address] * Prepare RBC: 1 Units (08/20/2024 11:19 PM CDT) Pathologist [facility] Product code [id number] Unit Number [id number] [facility] Product Blood Type APOS [facility] Dispense Status PRESUMED TRANSFUSED [facility] Blood 08/20/2024 11:1 9 PM CDT 08/20/2024 11:19 PM CDT Narrative [facility] - 08/21/2024 4:01 PM CDT Are special requirements needed? (All products are leukoreduced and CMV- safe)- >No Date required:-[id number] LRRBC # of [id number] Reasons:-Hgb <7 g/dL} us Quynh Mims MD BLOOD BANK PRODUCT O RDERABLES Final Result Performing Organization Address [facility] [place] [address] * (ABNORMAL) eGFR (08/20/2024 8:55 PM CDT) Pathologist [facility] eGFR 56(L) >=60 mL/min/1. 73 m2 Comment: [...] Mims MD LAB BLOOD ORDERABLES Final Result [facility] One [facility] Department [place] [address] * (ABNORMAL) CBC without differential (08/20/2024 8:55 PM CDT) WBC 9.85 3.80 - 9.90 K/cumm Hgb 6.9(L) 11.9 - 15.5 g/dL [facility] Hct 20.1(L) 35.6 - 45.5 % [facility] Plt 164 150 - 400 K/cumm [facility] MPV 11.4 9.1 - 12.3 fL [facility] RBC 2.31(L) 3.90 - 5.20 M/cumm [facility] MCV 87.0 81.3 - 96.4 fL [facility] MCH 29.9 27.1 - 33.3 pg [facility] MCHC 34.3 32.3 - 35.7 g/dL [facility] RDW CV 16.8(H) 11.1 - 14.9 % [facility] RDW SD 51.7(H) 35.7 - 48.1 fL [facility] NRBC abs 0.02(H) 0.00 - 0.01 K/cumm [facility] Blood 08/20/2024 8:55 PM CDT 08/20/2024 9:49 PM CDT Darius Lindo MD LAB BLOOD ORDERABLES Final Result Performing Organization Address City/[facility]/ZIP Co de Phone Number [facility] [place] [address] * Phosphorus (08/20/2024 8:55 PM CDT) [facility] Phosphorus, pl 3.0 2.3 - 4.5 mg/dL Blood 08/20/2024 8:55 PM CDT 08/20/2024 9:48 PM CDT Darius Lindo MD LAB BLOOD ORDERABLES Final Result Performing Organization Address City/[facility] Co de Phone Number [facility] [place] [place] [address] * Magnesium (08/20/2024 8:55 PM CDT) [facility] Magnesium 1.9 1.4 - 2.5 mg/dL Blood 08/20/2024 8:55 PM CDT 08/20/2024 9:48 PM CDT Quynh Mims MD LAB BLOOD ORDERABLES Final Result Performing Organization Address City/[facility] Co de Phone Number [facility] [place] [address] * (ABNORMAL) Basic metabolic panel (08/20/2024 8:55 PM CDT) Sodium 140 135 - 145 mmol/L Potassium, pl 3.8 3.3 - 4.9 mmol/L [facility] Chloride 111(H) 97 - 110 mmol/L [facility] CO2 22 22 - 32 mmol/L [facility] Anion gap 7 2 - 15 mmol/L [facility] BUN 17 6 - 25 mg/dL [facility] Creatinine 1.09 0.60 - 1.10 mg/dL [facility] Glucose 210(H) 70 - 199 mg/dL [facility] Comment: Interpretive Data Fasting glucose [...] 2022. Calcium 7.8(L) 8.5 - 10.3 mg/dL [facility] Blood 08/20/2024 8:55 PM CDT 08/20/2024 9:48 PM CDT us Darius Lindo MD LAB BLOOD ORDERABLES Final Result [facility] Department [place] [address] * (ABNORMAL) POCT glucose (08/20/2024 8:54 PM CDT) Glucose, POC 258(H) 70 - 199 mg/dL Blood 08/20/2024 8:54 PM CDT 08/20/2024 8:54 PM CDT Quynh Mims MD LAB POCT ORDERABLES - DEVICE Final Result [facility] [place] [address] * (ABNORMAL) POCT glucose (08/20/2024 4:48 PM CDT) [facility] Glucose, POC 210(H) 70 - 199 mg/dL Blood 08/20/2024 4:48 PM CDT 08/20/2024 4:48 PM CDT Quynh Mims MD LAB POCT ORDERABLES - DEVICE Final Result Performing Organization Address City/[facility]/[place] [address] * POCT glucose (08/20/2024 12:24 PM CDT) [facility] Glucose, POC 105 70 - 199 mg/dL Blood 08/20/2024 12:2 4 PM CDT 08/20/2024 12:24 PM CDT Quynh Mims MD LAB POCT ORDERABLES - DEVICE Final Result Performing Organization Address City/[facility] [place] [address] * (ABNORMAL) CBC without differential (08/20/2024 5:15 AM CDT) [facility] WBC 14.24(H) 3.80 - 9.90 K/cumm Hgb 7.5(L) 11.9 - 15.5 g/dL [facility] Hct 22.3(L) 35.6 - 45.5 % [facility] Plt 170 150 - 400 K/cumm [facility] MPV 11.3 9.1 - 12.3 fL [facility] RBC 2.53(L) 3.90 - 5.20 M/cumm [facility] MCV 88.1 81.3 - 96.4 fL [facility] MCH 29.6 27.1 - 33.3 pg [facility] MCHC 33.6 32.3 - 35.7 g/dL [facility] RDW CV 16.1(H) 11.1 - 14.9 % [facility] RDW SD 50.4(H) 35.7 - 48.1 fL [facility] NRBC abs 0.03(H) 0.00 - 0.01 K/cumm [facility] Blood 08/20/2024 5:15 AM CDT 08/20/2024 6:10 AM CDT Quynh Mims MD LAB BLOOD ORDERABLES Final Result Performing Organization Address [facility] de Phone Number [facility] [place] [address] * (ABNORMAL) Hemoglobin A1c (08/20/2024 5:15 AM CDT) Hgb A1C 7.0(H) 4.0 - 5.6 % Estimated Average Glucose 154 mg/dL [facility] Comment: The ADA recommends reporting [...] BLOOD ORDERABLES Final Result Performing Organization Address City/[facility]/ZIP Co de Phone Number [facility] [place] [address] * POCT glucose (08/20/2024 5:14 AM CDT) Glucose, POC 78 70 - 199 mg/dL Blood 08/20/2024 5:14 AM CDT 08/20/2024 5:14 AM CDT Quynh Mims MD LAB POCT ORDERABLES - DEVICE Final Result Performing Organization Address City/[facility] Co de Phone Number [facility] Department [place] [address] * eGFR (08/19/2024 11:58 PM CDT) eGFR 60 >=60 mL/min/1. 73 m2 Comment: [...] 8 PM CDT 08/20/2024 12:26 AM CDT Quynh Mims MD LAB BLOOD ORDERABLES Final Result Performing Organization Address City/[facility]/ZIP Co de Phone Number [facility] Department [place] [address] * (ABNORMAL) CBC without differential (08/19/2024 11:58 PM CDT) Pathologist [facility] WBC 13.63(H) 3.80 - 9.90 K/cumm Hgb 7.1(L) 11.9 - 15.5 g/dL [facility] Hct 21.3(L) 35.6 - 45.5 % [facility] Plt 166 150 - 400 K/cumm [facility] MPV 11.4 9.1 - 12.3 fL [facility] RBC 2.42(L) 3.90 - 5.20 M/cumm [facility] MCV 88.0 81.3 - 96.4 fL [facility] MCH 29.3 27.1 - 33.3 pg [facility] MCHC 33.3 32.3 - 35.7 g/dL [facility] RDW CV 15.9(H) 11.1 - 14.9 % [facility] RDW SD 50.1(H) 35.7 - 48.1 fL [facility] NRBC abs 0.02(H) 0.00 - 0.01 K/cumm [facility] Blood 08/19/2024 11:5 8 PM CDT 08/20/2024 12:26 AM CDT Darius Lindo MD LAB BLOOD ORDERABLES Final Result [facility] [place] [address] * Phosphorus (08/19/2024 11:58 PM CDT) Phosphorus, pl 3.1 2.3 - 4.5 mg/dL Blood 08/19/2024 11:5 8 PM CDT 08/20/2024 12:17 AM CDT Darius Lindo MD LAB BLOOD ORDERABLES Final Result [facility] [place] [address] * Magnesium (08/19/2024 11:58 PM CDT) Magnesium 2.0 1.4 - 2.5 mg/dL Blood 08/19/2024 11:5 8 PM CDT 08/20/2024 12:17 AM CDT us Quynh Mims MD LAB BLOOD ORDERABLES Final Result [facility] One [facility] Department [place] [address] * (ABNORMAL) Lipid panel (08/19/2024 11:58 PM [...] revised on 2017. Triglycerides 99 <=149 mg/dL [facility] Comment: Interpretive Data Ages < or [...] revised on 2017. HDL 30(L) >=40 mg/dL [facility] Comment: Interpretive Data Ages < or [...] 2017. LDL, calculated 42 <=129 mg/dL [facility] Comment: Interpretive Data Ages < or [...] 3. Mike Andrade et al. CAMILA Cardiol. 2019September 08;5(5):540-548. doi: [email or web address] Current Interpretive Data was last revised on 2023. Non-HDL Cholesterol 61 mg/dL [facility] Comment: Interpretive Data Ages < or [...] last revised on 2017. Chol/HDL ratio 3 [facility] Blood 08/19/2024 11:5 8 PM CDT 08/20/2024 12:26 AM CDT Narrative [facility] - 08/20/2024 8:24 AM CDT reflex us Quynh Mims MD LAB BLOOD ORDERABLES Final Result [facility] Department [place] [address] * (ABNORMAL) Basic metabolic panel (08/19/2024 11:58 PM CDT) Sodium 143 135 - 145 mmol/L Potassium, pl 3.3 3.3 - 4.9 mmol/L [facility] Chloride 112(H) 97 - 110 mmol/L [facility] CO2 23 22 - 32 mmol/L [facility] Anion gap 8 2 - 15 mmol/L [facility] BUN 21 6 - 25 mg/dL [facility] Creatinine 1.03 0.60 - 1.10 mg/dL [facility] Glucose 82 70 - 199 mg/dL [facility] Comment: Interpretive Data Fasting glucose [...] 2022. Calcium 8.1(L) 8.5 - 10.3 mg/dL [facility] Blood 08/19/2024 11:5 8 PM CDT 08/20/2024 12:17 AM CDT Quynh Mims MD LAB BLOOD ORDERABLES Final Result [facility] Department [place] [address] * POCT glucose (08/19/2024 11:57 PM CDT) Glucose, POC 87 70 - 199 mg/dL Blood 08/19/2024 11:5 7 PM CDT 08/19/2024 11:57 PM CDT Result Rene Mims MD LAB POCT ORDERABLES - DEVICE Final Result Performing Organization Address [facility] Co de Phone Number [facility] [place] [address] * Transfuse RBC (08/19/2024 10:44 PM CDT) Blood us Quynh Mims MD BLOOD TRANSFUSION OR DERABLES Final Result Performing Organization Address [facility] [place] [address] * POCT glucose (08/19/2024 8:26 PM CDT) Glucose, POC 153 70 - 199 mg/dL Blood 08/19/2024 8:26 PM CDT 08/19/2024 8:26 PM CDT Result Rene Mims MD LAB POCT ORDERABLES - DEVICE Final Result Performing Organization Address [facility] [place] [address] * Transfuse RBC (08/19/2024 6:55 PM CDT) Blood us Quynh Mims MD BLOOD TRANSFUSION OR DERABLES Final Result Performing Organization Address [facility] [place] [address] * POCT glucose (08/19/2024 4:51 PM CDT) Glucose, POC 127 70 - 199 mg/dL Blood 08/19/2024 4:51 PM CDT 08/19/2024 4:51 PM CDT us Quynh Mims MD LAB POCT ORDERABLES - DEVICE Final Result [facility] Department [place] [address] * CT Abdomen Pelvis W WO Contrast [...] Mary Jane Hughes M.D. Quynh Mims MD IMG CT PROCEDURES Fi nal Result * Prepare RBC: 4 Units (08/19/2024 2:37 PM CDT) Product code [id number] Unit Number [id number] [facility] Product Blood Type APOS [facility] Dispense Status PRESUMED TRANSFUSED [facility] Product code [id number] [facility] Unit Number [id number] [facility] Product Blood Type APOS [facility] Dispense Status PRESUMED TRANSFUSED [facility] Blood 08/19/2024 2:37 PM CDT 08/19/2024 2:37 PM CDT Narrative [facility] - 08/20/2024 8:03 AM CDT Are special requirements needed? (All products are leukoreduced and CMV- safe)- >No Date required:-[id number] LRRBC # of [id number] Reasons:-Hgb <7 g/dL} Quynh Mims MD BLOOD BANK PRODUCT O RDERABLES Final Result [facility] One [facility] Department [place] [address] * (ABNORMAL) eGFR (08/19/2024 1:54 PM CDT) [...] Mims MD LAB BLOOD ORDERABLES Final Result [facility] One [facility] [place] [address] * (ABNORMAL) Differential, auto (08/19/2024 1:54 PM CDT) Pathologist [facility] Neutrophil abs 8.26(H) 1.50 - 6.50 K/cumm Imm gran abs 0.12(H) 0.00 - 0.10 K/cumm [facility] Lymphocyte abs 2.15 0.80 - 3.30 K/cumm [facility] Monocyte abs 0.82(H) 0.20 - 0.80 K/cumm [facility] Eosinophil abs 0.11 0.00 - 0.50 K/cumm [facility] Basophil abs 0.02 0.00 - 0.10 K/cumm [facility] Neutrophil pct 72.0 % [facility] Comment: Interpretive Data Percent cell count reference ranges are not reported, since discordance with absolute values may lead to misinterpretation of CBC data. Current Interpretive Data was last revised on 2017. Imm gran pct 1.0 % [facility] Comment: Interpretive Data Percent cell count reference ranges are not reported, since discordance with absolute values may lead to misinterpretation of CBC data. Current Interpretive Data was last revised on 2017. Lymphocyte pct 18.7 % [facility] Comment: Interpretive Data Percent cell count reference ranges are not reported, since discordance with absolute values may lead to misinterpretation of CBC data. Current Interpretive Data was last revised on 2017. Monocyte pct 7.1 % [facility] Comment: Interpretive Data Percent cell count reference ranges are not reported, since discordance with absolute values may lead to misinterpretation of CBC data. Current Interpretive Data was last revised on 2017. Eosinophil pct 1.0 % [facility] Comment: Interpretive Data Percent cell count reference ranges are not reported, since discordance with absolute values may lead to misinterpretation of CBC data. Current Interpretive Data was last revised on 2017. Basophil pct 0.2 % [facility] Comment: Interpretive Data Percent cell count reference ranges are not reported, since discordance with absolute values may lead to misinterpretation of CBC data. Current Interpretive Data was last revised on 2017. Blood 08/19/2024 1:54 PM CDT 08/19/2024 2:17 PM CDT us Quynh Mims MD LAB BLOOD ORDERABLES Final Result [facility] One [facility] Department [place] [address] * (ABNORMAL) CBC with auto differential (08/19/2024 1:54 PM CDT) WBC 11.48(H) 3.80 - 9.90 K/cumm Hgb 4.6(C) 11.9 - 15.5 g/dL [facility] Comment:This result has been called to MONTSERRAT DE LEÓN RN by [email or web address] on 08/19/2024 14:32:32, and has been read back. Hct 14.2(L) 35.6 - 45.5 % [facility] Plt 166 150 - 400 K/cumm [facility] MPV 11.5 9.1 - 12.3 fL [facility] RBC 1.54(L) 3.90 - 5.20 M/cumm [facility] MCV 92.2 81.3 - 96.4 fL [facility] MCH 29.9 27.1 - 33.3 pg [facility] MCHC 32.4 32.3 - 35.7 g/dL [facility] RDW CV 16.6(H) 11.1 - 14.9 % [facility] RDW SD 54.9(H) 35.7 - 48.1 fL [facility] NRBC abs 0.00 0.00 - 0.01 K/cumm [facility] Blood 08/19/2024 1:54 PM CDT 08/19/2024 2:17 PM CDT Quynh Mims MD LAB BLOOD ORDERABLES Final Result Performing Organization Address [facility] de Phone Number [facility] [place] [address] * (ABNORMAL) aPTT (08/19/2024 1:54 PM CDT) Pathologist [facility] aPTT 27(L) 28 - 38 sec Comment: Interpretive Data Heparin therapeutic range: 66.0 - 100.0 seconds. Range based on correlation with therapeutic heparin activity range of 0.3 - 0.7 Units/mL. Current interpretive data was last revised on 2023. Blood 08/19/2024 1:54 PM CDT 08/19/2024 2:21 PM CDT Quynh Mims MD LAB BLOOD ORDERABLES Final Result Performing Organization Address [facility] Co de Phone Number [facility] [place] [address] * (ABNORMAL) Protime-INR (08/19/2024 1:54 PM CDT) Pathologist [facility] PT 13.9(H) 9.7 - 13.0 sec INR 1.28(H) 0.90 - 1.20 [facility] Comment: Interpretive data Oral anticoagulant therapeutic ranges: Venous thromboembolism prophylaxis or treatment: 2.0-3.0 CARDIOLOGY Standard range: 2.0-3.0 High-intensity range: 2.5-3.5 Refer to indication-specific guidelines for appropriate target ranges for prosthetic heart valve replacement. Current interpretive data was last revised on 2019. Blood 08/19/2024 1:5 4 PM CDT 08/19/2024 2:21 PM CDT us Quynh Mims MD LAB BLOOD ORDERABLES Final Result Performing Organization Address [facility] Co de Phone Number [facility] [place] [address] * Type and screen (08/19/2024 1:54 PM CDT) [facility] ABO Rh A Positive Ramon, indirect Negative [facility] Blood 08/19/2024 1:54 PM CDT 08/19/2024 2:26 PM CDT Narrative [facility] - 08/19/2024 3:17 PM CDT Has the patient had Daratumumab or Isatuximab in the past 6 months?->Unknown us Quynh Mims MD LAB BLOOD BANK TEST ORDERABLES Final Result Performing Organization Address [facility] de Phone Number [facility] [place] [address] * Phosphorus (08/19/2024 1:54 PM CDT) [facility] Phosphorus, pl 3.3 2.3 - 4.5 mg/dL Blood 08/19/2024 1:54 PM CDT 08/19/2024 2:14 PM CDT us Darius Lindo MD LAB BLOOD ORDERABLES Final Result Performing Organization Address [facility] Co de Phone Number [facility] [place] [address] * Magnesium (08/19/2024 1:54 PM CDT) Magnesium 2.1 1.4 - 2.5 mg/dL Blood 08/19/2024 1:54 PM CDT 08/19/2024 2:14 PM CDT us Quynh Mims MD LAB BLOOD ORDERABLES Final Result [facility] One [facility] Department [place] [address] * (ABNORMAL) Comprehensive metabolic panel (08/19/2024 1:54 PM CDT) Pathologist [facility] Sodium 143 135 - 145 mmol/L Potassium, pl 3.7 3.3 - 4.9 mmol/L [facility] Chloride 112(H) 97 - 110 mmol/L [facility] CO2 21(L) 22 - 32 mmol/L [facility] Anion gap 10 2 - 15 mmol/L [facility] BUN 25 6 - 25 mg/dL [facility] Creatinine 1.07 0.60 - 1.10 mg/dL [facility] Glucose 189 70 - 199 mg/dL [facility] Comment: Interpretive Data Fasting glucose [...] 2022. Calcium 8.0(L) 8.5 - 10.3 mg/dL [facility] Bilirubin, total <0.2 0.1 - 1.2 mg/dL [facility] Protein, pl 5.7(L) 6.5 - 8.5 g/dL [facility] Albumin 3.5 3.5 - 5.0 g/dL [facility] Alk phos 52 40 - 130 Units/L [facility] ALT 15 7 - 45 Units/L [facility] AST 17 10 - 45 Units/L [facility] Blood 08/19/2024 1:54 PM CDT 08/19/2024 2:14 PM CDT Quynh Mims MD LAB BLOOD ORDERABLES Final Result [facility] Department [place] [address] * SCAN - LABS (08/19/2024 12:04 PM [...] RIGHT breast was performed by a trained wireless sales consultant and by Dr. Hampton . BREAST PARENCHYMAL [...] RIGHT breast was performed by a trained wireless sales consultant and by Dr. Hampton . BREAST PARENCHYMAL [...] RIGHT breast was performed by a trained wireless sales consultant and by Dr. Hampton . BREAST PARENCHYMAL [...] RIGHT breast was performed by a trained wireless sales consultant and by Dr. Hampton . BREAST PARENCHYMAL [...] images may or may not represent the [place] source data set and thus may contain [...] images may or may not represent the [place] source data set and thus may contain changes which may lower the sensitivity of the second opinion interpretation. Dictated by: Ami Harinder Jovanny, M.D. The radiology attending physician has personally reviewed this study, and had reviewed and/or edited this written report and agrees with it. Electronically signed by: Estee Dowd M.D. Quynh Mims MD IMG MAMMO PROCEDURES Final Result * (ABNORMAL) Protime-INR (07/27/2024 11:41 AM CDT) PT 13.7(H) 9.7 - 13.0 sec INR 1.26(H) 0.90 - 1.20 [facility] Comment: Interpretive data Oral anticoagulant therapeutic ranges: Venous thromboembolism prophylaxis or treatment: 2.0-3.0 CARDIOLOGY Standard range: 2.0-3.0 High-intensity range: 2.5-3.5 Refer to indication-specific guidelines for appropriate target ranges for prosthetic heart valve replacement. Current interpretive data was last revised on 2019. Blood 07/27/2024 11:4 1 AM CDT 07/27/2024 1:07 PM CDT Quynh Mims MD LAB BLOOD ORDERABLES Final Result [facility] Department [place] [address] * SCAN - LABS (07/27/2024 9:02 AM CDT) Rachael Moncada RN Final Result [...] (Axial Sectra reconstruction images, image 102; Series 58099, image 19; Series 65900, image 71). Mild degree of scattered foci [...] (Axial Sectra reconstruction images, image 102; Series 52606, image 19; Series 42484, image 71). Mild degree of scattered foci [...] Imaging US Outside Reference (07/15/2024 12:05 AM [employer]) Impressions [email or web address] - 07/27/2024 2:25 PM CDT These images are for Reference purposes only and have not been reviewed by [facility] Radiology. There will be no report generated by a [facility] Radiologist. Narrative [email or web address] - 07/27/2024 2:25 PM CDT EXAMINATION: Images For Reference Purposes Only us Provider Transcribed Order IMG MAMMO PROCEDURES Final Result Performing Organization Address City/[facility] Co de Phone Number [email or web address] * Breast Imaging Diagnostic Outside Reference (07/15/2024 12:00 AM [employer]) Impressions [email or web address] - 07/27/2024 2:25 PM CDT These images are for Reference purposes only and have not been reviewed by [facility] Radiology. There will be no report generated by a [facility] Radiologist. Narrative [email or web address] - 07/27/2024 2:25 PM CDT EXAMINATION: Images For Reference Purposes Only us Provider Transcribed Order IMG MAMMO PROCEDURES Final Result Performing Organization Address City/[facility] Co de Phone Number [email or web address] * SCAN - LABS (07/06/2024 11:14 AM [employer]) us Rachael Mocnada RN Edited Resul t - Final * CT Chest Abdomen Pelvis W Contrast (07/06/2024 10:31 AM [employer]) Anatomical Region Laterality Modality Body N/A Computed Tomogra phy 07/06/2024 11:5 3 AM [employer] Impressions 07/06/2024 11:53 AM [employer] 1. Increased thickness of the endometrial cavity. [...] Bunny Jarvis M.D. Narrative 07/06/2024 11:53 AM [employer] EXAMINATION: Computed tomography of the chest, abdomen [...] by: Bunny Jarvis M.D. Quynh Mims MD IM CT PROCEDURES Fi nal Result * POCT creatinine (07/06/2024 10:11 AM [employer]) Creatinine POC 1.1 0.6 - 1.1 mg/dL Blood 07/06/2024 10:1 1 AM [employer] 07/06/2024 10:11 AM [employer] us Quynh Mims MD LAB POCT ORDERABLES - DEVICE Final Result [facility] Department [place] [address] * SCAN - LABS (07/04/2024 5:29 PM [employer]) us Rachael Moncada RN Edited Resul t - Final from Last 3 Months Insurance [employer] [place] MEDICARE [facility] MEDICARE [facility] Advance Directives For more information, please contact: [phone] * Full Code (Latest Code Status on File) Date Activated Date Inactivated Comments 08/19/2024 1:31 PM 08/22/2024 6:55 PM * Full Code Date Activated Date Inactivated Comments 10/23/2023 7:57 AM 10/23/2023 1:38 PM Care Teams Insurance Auditor Relationship Specialty Start Date End Date Andrea Chandler MD PCP - General Internal Medicine 03/31/23
--- OUTSIDE RECORDS SUMMARY | 2024-09-27 11:39 | XMS_ITS ---
Author Organization [facility] [address] [place] [address] Care Team Providers Care Cardiac Monitor Name Role Phone Andrea Chandler MD Primary Care Provider [phone] Active Problems Problem Noted Date Diagnosed Date [...] medications scheduled. Pembrolizumab 21 Day Cycles - PHOTOGEOLOGIST (Carbo Completed)* Plan Start Date:04/30/2023 Plan Provider:Quynh Mims MD Linked Problems Endometrial cancer (HCC) Treatment Medications Current Day (Day 1 , Cycle 24 - Planned for 09/28/2024) Next Day (Day 1, Cycle 25 - Planned for 10/19/2024) CARBOplatin (PARAPLATIN) IVP B in 250 mL [...]
--- OUTSIDE RECORDS SUMMARY | 2024-09-27 11:40 | XMS_ITS | Clinical Summary ---
Author Organization [facility] [address] Address [address] [place] [address] Care Team Providers Care Enrollment Counselor Name Role Phone Andrea Chandler MD Primary Care Provider [phone] Allergies Active Allergy Reactions Criticality Noted Date [...] 1 capsule (75 mg total) by mouth artist suspect before breakfast Active acetaminophen (TYLENOL) 500 mg [...] Type Department Care Team Description 09/27/2024 Telephone [facility] Cardiothoracic Surgery [address] [facility] 8th Floor [address] Room [address] [place] [address] Berenice Lemos MD PhD 09/12/2024 2:30 PM CDT - 09/12/2024 11:59 PM CDT Hospital Encounter [facility] [address] [place] [address] Abscess of right breast Discharge Disposition: Discharge to home or self care 09/12/2024 1:00 PM CDT Office Visit [facility] [address] [facility] Floor 8 [place] [address] Berenice Lemos MD PhD Mammogram abnormal (Primary Dx) 09/12/2024 Orders Only [facility] [address] [facility] Floor 8 [place] [phone] Aft, Berenice Sotomayor MD PhD Abscess of right breast (Primary Dx) 09/07/2024 2:00 PM CDT [facility] Gynecologic Oncology [facility] ([facility]) [address] [place] [address] Peritoneal carcinomatosis (HCC) (Primary Dx); Endometrial cancer (HCC) 09/07/2024 Orders Only [facility] Rachael Moncada RN 09/06/2024 Orders Only [facility] Rachael Moncada RN 08/27/2024 Results Follow-Up [facility] Gastroenterology [address] [place] [address] 12th [place] [address] [place] [address] Darius Lindo MD Surgical pathology 08/22/2024 10:45 AM CDT - 08/22/2024 11:[address] [facility] Digestive Disease [address] [place] [address] Darius Lindo MD COLON REMOVAL SNARE 08/22/2024 9:46 AM CDT Anesthesia Event [facility] Digestive [address] [place] [address] Gavin Jaimes MD Schappe, Elizabeth Mary, CRNA 08/19/2024 1:01 PM CDT - 08/22/2024 2:44 PM CDT Hospital Encounter [address] [address] Quynh Mims MD Rectal bleeding (Primary Dx) Discharge Disposition: Discharge to home or self care 08/19/2024 Orders Only [facility] Caridad Casanova, NADEGE 08/19/2024 Telephone [facility] Obstetrics and Gynecology [address] [place] [address] 13th [place] [address] Rachael Moncada RN 08/18/2024 Telephone [facility]etric[facility] [address] [facility] 13th [place] [phone] Rachael Moncada RN 08/18/2024 Orders Only [facility] [address] [place] [address] 13th [place] [phone] Rachael Moncada RN Endometrial cancer (HCC) (Primary Dx); Dizzy; Rectal bleeding 08/17/2024 1:00 PM CDT [facility] Gynecologic Oncology [facility] ([facility]) [address] [place] [address] Endometrial cancer (HCC) (Primary Dx); Peritoneal carcinomatosis (HCC) 08/17/2024 Orders Only OB ONCOLOGY Rachael Moncada RN 08/17/2024 Orders Only [facility] [address] [place] [address] 13th [place] [phone] ProviderRosa MD 08/16/2024 Orders Only OB ONCOLOGY Rachael Moncada RN 08/05/2024 Orders Only [facility] ON[facility] Rachael Moncada, RN Endometrial cancer (HCC) (Primary Dx) 08/02/2024 Orders Only [facility] [address] [place] [address] 13th [place] [phone] Rachael Moncada, RN Abnormal breast finding (Primary Dx); Abnormal mammogram of right breast; Abscess of right breast 08/02/2024 Orders Only [facility] [address] [place] [address] 13th [place] [address] Rosa Guevara MD 08/01/2024 1:18 PM CDT - 08/01/2024 11:59 PM CDT Hospital Encounter [facility] - Breast Imaging [address] [facility] 8 [place] [address] Abnormal mammogram Discharge Disposition: Discharge to home or self care 08/01/2024 1:18 PM CDT - 08/01/2024 11:59 PM CDT Hospital Encounter [facility] [address] [facility] Floor 8 [place] [address] Endometrial cancer (HCC); Abnormal breast finding Discharge Disposition: Discharge to home or self care 07/28/2024 Telephone [facility] ([facility]) [address] [place] [address] Sepideh Hernandez RN 07/27/2024 11:50 AM CDT - 07/27/2024 11:59 PM CDT Hospital Encounter [facility] ([facility]) [address] [place] [address] Abnormal mammogram Discharge Disposition: Discharge to home or self care 07/27/2024 11:30 AM CDT [facility] Gy[facility] ([facility]) [address] [place] [address] Peritoneal carcinomatosis (HCC) (Primary Dx); Endometrial cancer (HCC); Encounter for preprocedural laboratory examination 07/27/2024 10:15 AM CDT Office Visit [facility] [address] [place] [address] Advanced [facility] 13th [place] [address] [place] [address] Quynh Mims MD Endometrial cancer (HCC) (Primary Dx); Encounter for preprocedural laboratory examination 07/27/2024 Telephone [facility] Breast [facility] ([facility]) [address] [place] [address] Enma Ortiz RN Appointment (Scheduling of breast biopsy) 07/27/2024 Telephone [facility] Breast [facility] ([facility]) [address] [place] [address] Enma Ortiz RN Appointment (Scheduling of breast biopsy) 07/27/2024 Telephone [facility] Breast [facility] ([facility]) [address] [place] [address] Enma Ortiz RN Appointment (Scheduling of breast biopsy) 07/27/2024 Documentation [facility] [address] [place] [address] Advanced Medicine 13th [place] [address] Rachael Moncada, NADEGE 07/27/2024 Orders Only [facility] [address] [facility] 13th [place] [address] Rachael Moncada, RN Mass of temporal lobe (Primary Dx); Endometrial cancer (HCC) 07/27/2024 Orders Only OB ONCOLOGY Rachael Moncada RN 07/25/2024 Orders Only OB ONCOLOGY Liane Cooper RN 07/22/2024 Results Follow-Up [facility] [address] [facility] 13th [place] [address] Rachael Moncada, RN MRI Brain W WO Contrast 07/21/2024 Telephone [facility] [address] [facility] 13th [place] [address] Rachael Moncada, NADEGE 07/20/2024 7:42 AM CDT - 07/20/2024 11:59 PM CDT Hospital Encounter [facility] Radiology [address] [place] [address] Quynh Mims MD Endometrial cancer (HCC); Frequent falls; Balance problem Discharge Disposition: Discharge to home or self care 07/15/2024 12:05 AM EDUCATION AND TRAINING MANAGER - 07/15/2024 11:59 PM EDUCATION AND TRAINING MANAGER Hospital Encounter [facility] ([facility]) [address] [place] [address] Discharge Disposition: Discharge to home or self care 07/15/2024 - 07/15/2024 11:59 PM EDUCATION AND TRAINING MANAGER Hospital Encounter [facility] ([facility]) [address] [place] [address] Discharge Disposition: Discharge to home or self care 07/06/2024 2:00 PM EDUCATION AND TRAINING MANAGER [facility] Gynecologic [facility] ([facility]) [address] [place] [address] Endometrial cancer (HCC) (Primary Dx) 07/06/2024 1:00 PM EDUCATION AND TRAINING MANAGER Office Visit [facility] [address] [facility] 13th [place] [address] [place] [address] Quynh Mims MD Endometrial cancer (HCC) 07/06/2024 9:39 AM EDUCATION AND TRAINING MANAGER - 07/06/2024 11:59 PM EDUCATION AND TRAINING MANAGER Hospital Encounter [facility] ([facility]) [address] [place] [address] Endometrial cancer (HCC); Chemotherapy management, encounter for Discharge Disposition: Discharge to home or self care 07/06/2024 Documentation [facility] [address] [facility] 13th [place] [address] [place] [address] Rachael Moncada, NADEGE 07/06/2024 Orders Only [facility] Rachael Moncada RN Abnormal breast finding (Primary Dx); Endometrial cancer (HCC); Frequent falls; Balance problem 07/04/2024 Orders Only [facility] Rachael Moncada, NADEGE from Last 3 Months Immunizations Immunization Administration [...] disease) Type 2 diabetes mellitus (HCC) Hypothyroidism Overweight Family History Medical History Relation Name Comments [...] on file Legal Sex Female 3:27 AM EDUCATION AND TRAINING MANAGER Gender Identity Not on file Sexual [...] 09/12/2024 1:02 PM CDT Plan of Treatment Health Maintenance [...] 08/22/20342024, 10/23/2023 Medical Devices Implanted Type Area Door Assembler Device Identifier Shelf Expiration Date Model / Serial / Lot [employer] Low Porfile Power Port 8fr 1.6mm 1 Lumen [id number] - [id number] Implanted:Qty: 1 on 05/06/2023 at [facility] [employer] 01/04/2028 [id number] / / [id number] Procedures Procedure Name Priority Date/Time Associated Diagnosis [...] US OUTSIDE REFERENCE Routine 07/15/2024 12:05 AM EDUCATION AND TRAINING MANAGER BREAST IMAGING MG DIAGNOSTIC OUTSIDE REFERENCE Routine 07/15/2024 12:00 AM EDUCATION AND TRAINING MANAGER SCAN - LABS 07/06/2024 11:14 AM EDUCATION AND TRAINING MANAGER CT CHEST ABDOMEN PELVIS W CONTRAST Routine 07/06/2024 10:31 AM EDUCATION AND TRAINING MANAGER Endometrial cancer (HCC) Chemotherapy management, encounter for POCT CREATININE - DEVICE Routine 07/06/2024 10:11 AM EDUCATION AND TRAINING MANAGER SCAN - LABS 07/04/2024 5:29 PM EDUCATION AND TRAINING MANAGER from Last 3 Months Results * (ABNORMAL) Aerobic and anaerobic culture and gram stain Abscess Breast, right (09/12/2024 5:58 PM CDT) Direct Specimen Exam Stain: No polymorphonuclear leukocytes seen. No organisms seen. Report Final Report: Few Mixed aerobic and anaerobic microorganisms (.) [facility] Organism MIXED AEROBIC AND ANAEROBIC MICROORGANISMS [facility] Abscess (Breast, right) 09/12/2024 5:58 PM CDT 09/12/2024 6:36 PM CDT [facility]ative [facility] - 09/18/2024 1:28 PM CDT Specimen received on an ESwab. Testing performed by [facility] Microbiology Laboratory ([phone]) Specimens submitted from normally sterile body sites [...] LAB MICROBIOLOGY - GENERAL ORDERABLES Final Result [facility] Department [place] [address] * SCAN - LABS (09/07/2024 2:47 PM CDT) Rachael Moncada RN Final Result * SCAN - LABS (09/06/2024 10:11 PM CDT) Rachael Moncada RN Final Result * SCAN - LABS (09/05/2024 3:10 PM CDT) Rachael Moncada RN Final Result * POCT glucose (08/22/2024 12:23 PM CDT) Glucose, POC 89 70 - 199 mg/dL Blood 08/22/2024 12:2 3 PM CDT 08/22/2024 12:23 PM CDT us Quynh Mims MD LAB POCT ORDERABLES - DEVICE Final Result [facility] Department [place] [address] * Surgical pathology (08/22/2024 10:07 AM CDT) Tissue (Polyp(s), colon/colorectal, esophageal, gastric) 08/22/2024 10:07 AM CDT Tissue specimen (specimen) (Polyp(s), colon/colorectal, esophageal, gastric) 08/22/2024 10:09 AM CDT Tissue specimen (specimen) (Polyp(s), colon/colorectal, esophageal, gastric) 08/22/2024 10:21 AM CDT Tissue specimen (specimen) (Polyp(s), colon/colorectal, esophageal, gastric) 08/22/2024 10:33 AM CDT Tissue specimen (specimen) (Polyp(s), colon/colorectal, esophageal, gastric) 08/22/2024 10:45 AM CDT Narrative PATHOLOGY [facility] - 08/23/2024 5:08 PM CDT EPIC results best viewed via link to PDF [facility] [place] [address] Note to Patients: This report may contain [...] Gender: F : 1955 (Age: 69) Address: [address] [place] [address] Hospital #: [id number] Taken:08/22/2024 Received:08/22/2024 Reported: 08/23/2024 Patient Type: [facility] Inpatient Service: Gynecology Location: [place] [address] Physician(s): Prakash Monahan M.D. Diagnosis: A. Large [...] in greatest dimension. Labeled E1. Jar 0. [facility]/08/22/2024 12:48 PA(s): Thu Gutierres By this signature, I attest that the above diagnosis is based upon my personal examination of the slides(and/or other material). Addenda/Procedures The performance characteristics of some immunohistochemical stains, fluorescence in-situ hybridization tests and immunophenotyping by flow cytometry cited in this report (if any) were determined by the Surgical Pathology and Flow Cytometry Departments at [facility] as part of an ongoing quality assurance monitor final program and in compliance with federally mandated [...] Surgical Pathology and Flow Cytometry Departments of [facility]. It has not been cleared or approved by the U. S. Food and Drug Administration. IMAGES AND SCANNED DOCUMENTS, IF INCLUDED, ONLY VIEWABLE IN PDF VERSION OF REPORT us Darius Lindo MD LAB PATHOLOGY ORDERABLES F inal Result PATHOLOGY [facility] 3rd Floor [place], [place] [phone] * Colonoscopy (08/22/2024 9:46 AM CDT) Anatomical Region Laterality Modality Other Narrative Procedure Note Darius Lindo MD - 08/22/2024 9:46 AM CDT GI ENDOSCOPY [facility] Patient Name: Rhonda Wiseman Procedure Date: 08/22/2024 9:46 AM Date of : 1955 Admit Type: Inpatient Age: 69 Gender: Female Attending MD: Darius Lindo M.D. Room: [facility] ENDOSCOPY ROOM 3 Note Status: Finalized [...] scope was passed under direct vision.The CF [id number] endoscope was introduced through the anus and advanced to the cecum, identified by appendiceal orifice and ileocecal valve. The bowel preparation used was GoLYTELY via split dose instruction. The quality of the bowel preparationwas evaluated using the BBPS ([place] Bowel Preparation Scale) with scores of: Right [...] sessile. The polyp was removed with a juFonemesho cold forceps. Resection and retrieval were complete. A 9 mm polyp was found in the ascending colon. The polyp was semi-sessile. The polyp was removed with a saline injection-lift technique using a hot snare. Resection and retrieval were complete.To prevent bleeding after the polypectomy, one hemostatic clip was successfully placed (MR conditional). Clip grocery bagger: [employer]. There was no bleeding at the end [...] retrieved. Clip (MR conditional) was placed. Clip grocery bagger: Travark. - One 14 mm polyp in the [...] - DEVICE Final Result [facility] Department of Laboratories [place], [place] [id number] * POCT glucose (08/22/2024 7:46 AM CDT) Glucose, POC 82 70 - 199 mg/dL Blood 08/22/2024 7:46 AM CDT 08/22/2024 7:46 AM CDT us Quynh Mims MD LAB POCT ORDERABLES - DEVICE Final Result Performing Organization Address City/[facility] Co de Phone Number [facility] Department [place] [address] * Potassium, whole blood (08/22/2024 5:57 AM CDT) Potassium, bld 3.8 3.3 - 4.9 mmol/L Blood 08/22/2024 5:57 AM CDT 08/22/2024 6:13 AM CDT Narrative [facility] - 08/22/2024 6:13 AM CDT Whenever K Repletion finished us Quynh Mims MD LAB BLOOD ORDERABLES Final Result Performing Organization Address City/[facility] de Phone Number [facility] Department [place] [address] * eGFR (08/21/2024 9:04 PM CDT) Pathologist [facility] eGFR 66 >=60 mL/min/1. 73 m2 [...] BLOOD ORDERABLES Final Result Performing Organization Address [facility] de Phone Number [facility] [place] [address] * (ABNORMAL) aPTT (08/21/2024 9:04 PM CDT) [...] BLOOD ORDERABLES Final Result Performing Organization Address [facility] [place] [address] * (ABNORMAL) Protime-INR (08/21/2024 9:04 PM CDT) [...] BLOOD ORDERABLES Final Result Performing Organization Address City/[facility]/ZIP Co de Phone Number [facility] Department [place] [address] * (ABNORMAL) CBC without differential (08/21/2024 9:04 [...] Lindo MD LAB BLOOD ORDERABLES Final Result [facility] [place] [address] * Phosphorus (08/21/2024 9:04 PM CDT) Phosphorus, pl 2.6 2.3 - 4.5 mg/dL Blood 08/21/2024 9:04 PM CDT 08/21/2024 9:56 PM CDT Darius Lindo MD LAB BLOOD ORDERABLES Final Result [facility] Department [place] [address] * Magnesium (08/21/2024 9:04 PM CDT) [facility] Magnesium 1.8 1.4 - 2.5 mg/dL Blood 08/21/2024 9:04 PM CDT 08/21/2024 9:56 PM CDT Quynh Mims MD LAB BLOOD ORDERABLES Final Result Performing Organization Address [facility] Co de Phone Number [facility] [place] [address] * (ABNORMAL) Basic metabolic panel (08/21/2024 9:04 PM CDT) [facility] Sodium 142 135 - 145 mmol/L Potassium, [...] BLOOD ORDERABLES Final Result Performing Organization Address City/[facility] Co de Phone Number [facility] [employer] [place] [address] * POCT glucose (08/21/2024 8:44 PM CDT) Glucose, POC 96 70 - 199 mg/dL Blood 08/21/2024 8:44 PM CDT 08/21/2024 8:44 PM CDT Quynh Mims MD LAB POCT ORDERABLES - DEVICE Final Result Performing Organization Address City/[facility] Co de Phone Number [facility] [employer] [place] [address] * POCT glucose (08/21/2024 5:49 PM CDT) Glucose, POC 98 70 - 199 mg/dL Blood 08/21/2024 5:49 PM CDT 08/21/2024 5:49 PM CDT Quynh Mims MD LAB POCT ORDERABLES - DEVICE Final Result Performing Organization Address City/[facility] Co de Phone Number [facility] [employer] [place] [address] * POCT glucose (08/21/2024 12:27 PM CDT) Glucose, POC 138 70 - 199 mg/dL Blood 08/21/2024 12:2 7 PM CDT 08/21/2024 12:27 PM CDT us Quynh Mims MD LAB POCT ORDERABLES - DEVICE Final Result [facility] Department [place] [address] * MRI Pelvis W WO Contrast (08/21/2024 [...] * POCT glucose (08/21/2024 7:35 AM CDT) [facility] Glucose, POC 144 70 - 199 mg/dL Blood 08/21/2024 7:35 AM CDT 08/21/2024 7:35 AM CDT Quynh Mims MD LAB POCT ORDERABLES - DEVICE Final Result [facility] Department [place] [address] * (ABNORMAL) CBC without differential (08/21/2024 6:43 AM CDT) [facility] WBC 9.46 3.80 - 9.90 K/cumm Hgb [...] 6:43 AM CDT 08/21/2024 7:12 AM CDT Quynh Mims MD LAB BLOOD ORDERABLES Final Result Performing Organization Address [facility] Co de Phone Number [facility] [employer] [place] [address] * Transfuse RBC (08/21/2024 2:13 AM CDT) Blood Quynh Mims MD BLOOD TRANSFUSION OR DERABLES Final Result Performing Organization Address [facility] de Phone Number [place], [place] [phone] * Prepare RBC: 1 Units (08/20/2024 11:19 PM CDT) [facility] Product code [id number] Unit Number [id number] [facility] Product Blood Type APOS [facility] Dispense Status PRESUMED TRANSFUSED [facility] Blood 08/20/2024 11:1 9 PM CDT 08/20/2024 11:19 PM CDT Narrative [facility] - 08/21/2024 4:01 PM CDT Are special requirements needed? (All products are leukoreduced and CMV- safe)- >No Date required:-[id number] LRRBC # of [id number] Reasons:-Hgb <7 g/dL} us Quynh Mims MD BLOOD BANK PRODUCT O RDERABLES Final Result Performing Organization Address [facility] de Phone Number [place], [place] [phone] * (ABNORMAL) eGFR (08/20/2024 8:55 PM CDT) [facility] eGFR 56(L) >=60 mL/min/1. 73 [...] Result [facility] Department [place] [address] * (ABNORMAL) CBC without differential (08/20/2024 8:55 PM CDT) [facility] WBC 9.85 3.80 - 9.90 K/cumm Hgb [...] Lindo MD LAB BLOOD ORDERABLES Final Result [facility] [place] [address] * Phosphorus (08/20/2024 8:55 PM CDT) Phosphorus, pl 3.0 2.3 - 4.5 mg/dL Blood 08/20/2024 8:55 PM CDT 08/20/2024 9:48 PM CDT Darius Lindo MD LAB BLOOD ORDERABLES Final Result Performing Organization Address City/[facility]/ZIP Co de Phone Number [facility] [place] [address] * Magnesium (08/20/2024 8:55 PM CDT) Magnesium 1.9 1.4 - 2.5 mg/dL Blood 08/20/2024 8:55 PM CDT 08/20/2024 9:48 PM CDT Quynh Mims MD LAB BLOOD ORDERABLES Final Result [facility] Department [place] [address] * (ABNORMAL) Basic metabolic panel (08/20/2024 8:55 [...] BLOOD ORDERABLES Final Result Performing Organization Address City/State/[place] Co de Phone Number [facility] [place] [address] * (ABNORMAL) POCT glucose (08/20/2024 8:54 PM CDT) Glucose, POC 258(H) 70 - 199 mg/dL Blood 08/20/2024 8:54 PM CDT 08/20/2024 8:54 PM CDT Quynh Mims MD LAB POCT ORDERABLES - DEVICE Final Result Performing Organization Address City/[facility] Co de Phone Number [facility] [place] [address] * (ABNORMAL) POCT glucose (08/20/2024 4:48 PM CDT) [facility] Glucose, POC 210(H) 70 - 199 mg/dL Blood 08/20/2024 4:48 PM CDT 08/20/2024 4:48 PM CDT Quynh Mims MD LAB POCT ORDERABLES - DEVICE Final Result Performing Organization Address [facility] Co de Phone Number [facility] [place] [address] * POCT glucose (08/20/2024 12:24 PM CDT) [facility] Glucose, POC 105 70 - 199 mg/dL Blood 08/20/2024 12:2 4 PM CDT 08/20/2024 12:24 PM CDT Quynh Mims MD LAB POCT ORDERABLES - DEVICE Final Result Performing Organization Address [facility] Co de Phone Number [facility] of Laboratories [place] [address] * (ABNORMAL) CBC without differential (08/20/2024 5:15 AM CDT) [facility] WBC 14.24(H) 3.80 - 9.90 K/cumm Hgb [...] BLOOD ORDERABLES Final Result Performing Organization Address [facility] de Phone Number [facility] [employer] [place] [address] * (ABNORMAL) Hemoglobin A1c (08/20/2024 5:15 AM CDT) Pathologist [facility] Hgb A1C 7.0(H) 4.0 - 5.6 % [...] BLOOD ORDERABLES Final Result Performing Organization Address City/[facility] de Phone Number [facility] [employer] [place] [address] * POCT glucose (08/20/2024 5:14 AM CDT) Glucose, POC 78 70 - 199 mg/dL Blood 08/20/2024 5:14 AM CDT 08/20/2024 5:14 AM CDT us Quynh Mims MD LAB POCT ORDERABLES - DEVICE Final Result Performing Organization Address [facility] de Phone Number K[facility]STYNA ORTIZ [facility] [place] [address] * eGFR (08/19/2024 11:58 PM CDT) eGFR [...] BLOOD ORDERABLES Final Result Performing Organization Address City/[facility]/ZIP Co de Phone Number KRYSTYNA ORTIZ [facility] [place] [address] * (ABNORMAL) CBC without differential (08/19/2024 11:58 PM CDT) WBC 13.63(H) 3.80 - 9.90 K/cumm Hgb [...] Lindo MD LAB BLOOD ORDERABLES Final Result [facility] [place] [employer] [place] [address] * Phosphorus (08/19/2024 11:58 PM CDT) Phosphorus, pl 3.1 2.3 - 4.5 mg/dL Blood 08/19/2024 11:5 8 PM CDT 08/20/2024 12:17 AM CDT Darius Lindo MD LAB BLOOD ORDERABLES Final Result [facility] [employer] [address] * Magnesium (08/19/2024 11:58 PM CDT) Magnesium 2.0 1.4 - 2.5 mg/dL Blood 08/19/2024 11:5 8 PM CDT 08/20/2024 12:17 AM CDT us Quynh Mims MD LAB BLOOD ORDERABLES Final Result [facility] [place] [address] * (ABNORMAL) Lipid panel (08/19/2024 11:58 PM [...] on 2017. Triglycerides 99 <=149 mg/dL [facility] Comment: Interpretive Data Ages < or = [...] on 2017. HDL 30(L) >=40 mg/dL [facility] Comment: Interpretive Data Ages < or = [...] on 2017. LDL, calculated 42 <=129 mg/dL [facility] Comment: [...] HOSPITAL - 08/20/2024 8:24 AM CDT reflex Quynh Mims MD LAB BLOOD ORDERABLES Final Result [facility] [place] [address] * (ABNORMAL) Basic metabolic panel (08/19/2024 11:58 PM CDT) [facility] Sodium 143 135 - 145 [...] BLOOD ORDERABLES Final Result Performing Organization Address City/[facility]/ZIP Co de Phone Number [facility] [place] [address] * POCT glucose (08/19/2024 11:57 PM CDT) Glucose, POC 87 70 - 199 mg/dL Blood 08/19/2024 11:5 7 PM CDT 08/19/2024 11:57 PM CDT Result Rene Mims MD LAB POCT ORDERABLES - DEVICE Final Result Performing Organization Address [facility]/[place] [address] * Transfuse RBC (08/19/2024 10:44 PM CDT) Blood Result Rene Mims MD BLOOD TRANSFUSION OR DERABLES Final Result Performing Organization Address [facility] de Phone Number [facility] [address] * POCT glucose (08/19/2024 8:26 PM CDT) [facility] Signature Glucose, POC 153 70 - 199 mg/dL Blood 08/19/2024 8:26 PM CDT 08/19/2024 8:26 PM CDT Result Rene Mims MD LAB POCT ORDERABLES - DEVICE Final Result Performing Organization Address [facility] de Phone Number [facility] [employer] [place] [address] * Transfuse RBC (08/19/2024 6:55 PM CDT) Blood Result Rene Mims MD BLOOD TRANSFUSION OR DERABLES Final Result Performing Organization Address [facility] de Phone Number [facility] [place] [address] * POCT glucose (08/19/2024 4:51 PM CDT) Glucose, POC 127 70 - 199 mg/dL Blood 08/19/2024 4:51 PM CDT 08/19/2024 4:51 PM CDT us Quynh Mims MD LAB POCT ORDERABLES - DEVICE Final Result [facility] [place] [address] * CT Abdomen Pelvis W WO Contrast [...] RBC: 4 Units (08/19/2024 2:37 PM CDT) Pathologist [facility] Product code [id number] Unit Number [id number] R [facility] Product Blood Type APOS [facility] Dispense Status PRESUMED TRANSFUSED [facility] Product code [id number] [facility] Unit Number [id number] U [facility] Product Blood Type APOS [facility] Dispense Status PRESUMED TRANSFUSED [facility] Blood 08/19/2024 2:37 PM CDT 08/19/2024 2:37 PM CDT Narrative [facility] - 08/20/2024 8:03 AM CDT Are special requirements needed? (All products are leukoreduced and CMV- safe)- >No Date required:-[id number] LRRBC # of [id number] Reasons:-Hgb <7 g/dL} Quynh Mims MD BLOOD BANK PRODUCT O RDERABLES Final Result [facility] [place] [address] * (ABNORMAL) eGFR (08/19/2024 1:54 PM CDT) Pathologist [facility] eGFR 57(L) >=60 mL/min/1. 73 m2 [...] Result [facility] [place] [address] * (ABNORMAL) Differential, auto (08/19/2024 1:54 PM CDT) Pathologist [facility] Neutrophil abs 8.26(H) 1.50 - 6.50 K/cumm Imm gran abs 0.12(H) 0.00 - 0.10 K/cumm [facility] Lymphocyte abs 2.15 0.80 - 3.30 K/cumm [facility] Monocyte abs 0.82(H) 0.20 - 0.80 K/cumm [facility] Eosinophil abs 0.11 0.00 - 0.50 K/cumm [facility] Basophil abs 0.02 0.00 - 0.10 K/cumm [facility] Neutrophil pct 72.0 % [facility] [...] revised on 2017. Monocyte pct 7.1 % [facility] Comment: Interpretive Data Percent cell count reference ranges are not reported, since discordance with absolute values may lead to misinterpretation of CBC data. Current Interpretive Data was last revised on 2017. Eosinophil pct 1.0 % [facility] Comment: Interpretive Data Percent cell count reference [...] Result [facility] [place] [address] * (ABNORMAL) CBC with auto differential (08/19/2024 1:54 PM CDT) WBC 11.48(H) 3.80 - 9.90 K/cumm Hgb 4.6(C) 11.9 - 15.5 g/dL [facility] Comment:This result has been called to MONTSERRAT DE LEÓN RN by [email or web address] on 08/19/2024 14:32:32, and has been read [...] BLOOD ORDERABLES Final Result Performing Organization Address [facility] de Phone Number [facility] [place] [employer] [place] [address] * (ABNORMAL) aPTT (08/19/2024 1:54 PM CDT) [...] BLOOD ORDERABLES Final Result Performing Organization Address [facility] de Phone Number [facility] [place] [employer] [place] [address] * (ABNORMAL) Protime-INR (08/19/2024 1:54 PM CDT) [...] BLOOD ORDERABLES Final Result Performing Organization Address City/[facility]/ZIP Co de Phone Number [facility] [employer] [address] * Type and screen (08/19/2024 1:54 PM CDT) Pathologist [facility] ABO Rh A Positive Ramon, indirect Negative [facility] Blood 08/19/2024 1:54 PM CDT 08/19/2024 2:26 PM CDT Narrative [facility] - 08/19/2024 3:17 PM CDT Has the patient had Daratumumab or Isatuximab in the past 6 months?->Unknown Quynh Mims MD LAB BLOOD BANK TEST ORDERABLES Final Result Performing Organization Address [facility] [address] * Phosphorus (08/19/2024 1:54 PM CDT) Pathologist [facility] Phosphorus, pl 3.3 2.3 - 4.5 mg/dL Blood 08/19/2024 1:54 PM CDT 08/19/2024 2:14 PM CDT Darius Lindo MD LAB BLOOD ORDERABLES Final Result Performing Organization Address City/[facility] de Phone Number [facility] [employer] [place] [address] * Magnesium (08/19/2024 1:54 PM CDT) Pathologist [facility] Magnesium 2.1 1.4 - 2.5 mg/dL Blood 08/19/2024 1:54 PM CDT 08/19/2024 2:14 PM CDT us Quynh Mims MD LAB BLOOD ORDERABLES Final Result [facility] [place] [address] * (ABNORMAL) Comprehensive metabolic panel (08/19/2024 1:54 PM CDT) Pathologist [facility] Sodium 143 135 - 145 mmol/L Potassium, [...] Alk phos 52 40 - 130 Units/L [facility] ALT 15 7 - 45 Units/L [facility] AST 17 10 - 45 Units/L [facility] Blood 08/19/2024 1:54 PM CDT 08/19/2024 2:14 PM CDT Quynh Mims MD LAB BLOOD ORDERABLES Final Result [facility] [place] [address] * SCAN - LABS (08/19/2024 12:04 PM [...] * MISC-ORDER (08/02/2024 9:07 AM CDT) Result [facility] Historical Provider LAB BLOOD ORDERABLES Jo l [...] recommendations with the patient. Dictated by: Sepideh Mectalf MD The radiology attending physician has personally [...] RIGHT breast was performed by a trained garageman and by Dr. Hampton . BREAST PARENCHYMAL [...] RIGHT breast was performed by a trained garageman and by Dr. Hampton . BREAST PARENCHYMAL [...] RIGHT breast was performed by a trained garageman and by Dr. Hampton . BREAST PARENCHYMAL [...] RIGHT breast was performed by a trained garageman and by Dr. Hampton . BREAST PARENCHYMAL [...] images may or may not represent the [place] source data set and thus may contain [...] OF OUTSIDE IMAGING FACILITY PERFORMING [facility] EXAM(S) REVIEWED: 1. BILATERAL DIAGNOSTIC MAMMOGRAM WITH [...] OF OUTSIDE IMAGING FACILITY PERFORMING OUTSIDE IMAGING: [facility] EXAM(S) REVIEWED: 1. BILATERAL DIAGNOSTIC MAMMOGRAM WITH [...] images may or may not represent the [place] source data set and thus may contain [...] Result [facility] [place] [address] * SCAN - LABS (07/27/2024 9:02 AM [...] (Axial Sectra reconstruction images, image 102; Series 32035, image 19; Series 94468, image 71). Mild degree of scattered foci [...] (Axial Sectra reconstruction images, image 102; Series 79167, image 19; Series 46981, image 71). Mild degree of scattered foci [...] Rosalinda Galvez M.D. us Quynh Mims MD [facility] MRI PROCEDURES F inal Result * Breast Imaging US Outside Reference (07/15/2024 12:05 AM EDUCATION AND TRAINING MANAGER) Impressions [email or web address] - 07/27/2024 2:25 PM CDT These images are for Reference purposes only and have not been reviewed by [facility]. There will be no report generated by a [facility]iologist. Narrative [email or web address] - 07/27/2024 2:25 PM CDT EXAMINATION: Images For Reference Purposes Only us Provider Transcribed Order IMG MAMMO PROCEDURES Final Result Performing Organization Address City/[facility]/ZIP Co de Phone Number [email or web address] * Breast Imaging Diagnostic Outside Reference (07/15/2024 12:00 AM EDUCATION AND TRAINING MANAGER) Impressions [email or web address] - 07/27/2024 2:25 PM CDT These images are for Reference purposes only and have not been reviewed by [facility]. There will be no report generated by a [facility]iologist. Narrative [email or web address] - 07/27/2024 2:25 PM CDT EXAMINATION: Images For Reference Purposes Only us Provider Transcribed Order IMG MAMMO PROCEDURES Final Result Performing Organization Address [facility] de Phone Number [email or web address] * SCAN - LABS (07/06/2024 11:14 AM EDUCATION AND TRAINING MANAGER) Rachael Moncada RN Edited Resul t - Final * CT Chest Abdomen Pelvis W Contrast (07/06/2024 10:31 AM EDUCATION AND TRAINING MANAGER) Anatomical Region Laterality Modality Body N/A Computed Tomogra phy 07/06/2024 11:5 3 AM EDUCATION AND TRAINING MANAGER Impressions 07/06/2024 11:53 AM EDUCATION AND TRAINING MANAGER 1. Increased thickness of the endometrial cavity. [...] Bunny Jarvis M.D. Narrative 07/06/2024 11:53 AM EDUCATION AND TRAINING MANAGER EXAMINATION: Computed tomography of the chest, abdomen [...] Result * POCT creatinine (07/06/2024 10:11 AM EDUCATION AND TRAINING MANAGER) Creatinine POC 1.1 0.6 - 1.1 mg/dL Blood 07/06/2024 10:1 1 AM EDUCATION AND TRAINING MANAGER 07/06/2024 10:11 AM EDUCATION AND TRAINING MANAGER us Quynh Mims MD LAB POCT ORDERABLES - DEVICE Final Result [facility] [place] [address] * SCAN - LABS (07/04/2024 5:29 PM EDUCATION AND TRAINING MANAGER) us Rachael Moncada RN Edited Resul t - Final from Last 3 Months Insurance [employer] [place] MEDICARE [facility] [place] [address] MEDICARE [facility] Advance Directives For more information, please contact: [phone] * Full Code (Latest Code Status on File) Date Activated Date Inactivated Comments 08/19/2024 1:31 PM 08/22/2024 6:55 PM * Full Code Date Activated Date Inactivated Comments 10/23/2023 7:57 AM 10/23/2023 1:38 PM Care Teams Enrollment Counselor Relationship Specialty Start Date End Date Andrea Chandler MD PCP - General Internal Medicine 03/31/23
--- OUTSIDE RECORDS SUMMARY | 2024-09-27 11:40 | XMS_ITS | Encounter Summary ---
Author Organization [facility] Address [address] [place] [address] Phone Care Team Providers Care Pen Rider Name Role Phone Andrea Chandler MD Primary Care Provider [phone] Encounter Details Date Type Department Care Team (Late st Contact Info) Description 08/27/2024 Results Follow-Up [facility] Gastroenterology [address] 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
[2024-09-27 11:52] LABS: Basophils Absolute Auto 0.06 K/mm3 (0.00-0.10); Basophils Percent Auto 0.7 % (0.0-1.0); Eosinophils Absolute Auto 0.42 K/mm3 (0.02-0.50); Eosinophils Percent Auto 4.6 % (1.0-6.0); Hematocrit 29.7 % (35.0-42.0); Hemoglobin 8.8 g/dL (11.7-13.8); Immature Granulocyte Absolute 0.05 K/mm3 (0.00-0.00); Immature Granulocyte Percent A 0.5 % (0.0-0.0); Lymphocytes Absolute Auto 2.04 K/mm3 (1.10-4.50); Lymphocytes Percent Auto 22.1 % (18.0-42.0); Mean Corpuscular HGB Conc 29.6 g/dL (32-36); Mean Corpuscular Hemoglobin 25.7 pg (27.0-31.0); Mean Corpuscular Volume 86.8 fL (78.0-102.0); Mean Platelet Volume 11.7 fl (9.2-11.8); Monocytes Absolute Auto 0.67 K/mm3 (0.10-0.90); Monocytes Percent Auto 7.3 % (2.0-11.0); Neutrophils Absolute Auto 5.98 K/mm3 (1.70-7.20); Neutrophils Percent Auto 64.8 % (50.0-70.0); Platelet Count Result 250 K/mm3 (150-420); Red Blood Count 3.42 M/mm3 (4.20-5.40); Red Cell Distribution Width 15.3 % (11.6-14.4); White Blood Count 9.2 K/mm3 (4.8-10.8)
[2024-09-27 12:18] LABS: Alanine Aminotransferase 19 U/L (6-35); Albumin Level 3.7 g/dL (3.5-5.1); Alkaline Phosphatase 56 U/L (38-126); Anion Gap 5 mmol/L (4-12); Aspartate Amino Transferase 25 U/L (14-36); Bilirubin,Total 0.3 mg/dL (0.2-1.3); Blood Urea Nitrogen 19 mg/dL (7-17); Calcium 8.3 mg/dL (8.4-10.2); Carbon Dioxide 20 mmol/L (22-30); Chloride 111 mmol/L (98-107); Estimated Glomerular Filt Rate > 60; Glucose 364 mg/dL (65-110); Magnesium 1.7 mg/dL (1.6-2.3); Osmolality Calculated 299 mOsm/kg (285-295); Potassium 3.9 mmol/L (3.4-5.0); Sodium 136 mmol/L (137-145); Total Protein 5.9 g/dL (6.3-8.2)
[2024-09-27 12:35] LABS: Free T4 Free Thyroxine 0.47 ng/dL (0.78-2.19)
[2024-09-29 00:44] LABS: CA-125 86 U/mL (<35)
[2024-09-29 08:48] LABS: Thyroid Peroxidase Antibodies 36 IU/mL (<9)
== END 2024-09-27 11:34 | disposition home or self-care (01) ==
LOC: CHSLAB 11:36
PROVIDERS: PCP Internal Medicine
DX: C54.1 Malignant neoplasm of endometrium (principal); E11.9 Type 2 diabetes mellitus without complications
CPT/HCPCS: 36415; 80053; 83735; 84439; 84443; 85025; 86304; 86376

== ENCOUNTER 2024-10-17 08:00 | Outpatient (CLI) | payer MEDICARE, SELFPAY ==
--- OUTSIDE RECORDS SUMMARY | 2024-10-17 08:08 | XMS_ITS | Encounter Summary ---
Author Organization [facility] Address [address] [place] [address] Phone Care Team Providers Care Casino Change Attendant Name Role Phone Andrea Chandler MD Primary Care Provider [phone] Encounter Details Date Type Department Care Team (Late st Contact Info) Description 09/27/2024 Telephone [facility] Cardiothoracic Surgery [address] [facility] 8th Floor [address] [place], [place] [address] Aft, Berenice Sotomayor MD PhD [address] [place], [place] [id number] Social History Tobacco Use Types Packs/Day Years [...] on file 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 Gender Identity Not on file Sexual Orientation [...] them to contact for a call back: [phone] Last office visit: Visit date not found Date of Surgery: 08/22/2024 documented in this encounter Plan of Treatment Upcoming Encounters Date Type Department Care Team (Latest Contact Info) Description 11/15/2024 7:30 AM CDT Hospital Encounter [facility] Operating [facility] [address] [place] [address] Berenice Lemos MD PhD [address] [place] [address] 11/15/2024 7:30 AM CDT - 11/15/2024 8:25 AM CDT Surgery [facility] Operating Room [facility] [address] [place] [address] Berenice Lemos MD PhD [address] [place] [address] INCISION AND DRAINAGE - BREAST Scheduled Procedures Name Priority Associated Diagnoses Date/Ti me INCISION AND DRAINAGE - BREAST Abscess of right breast 11/15/2024 7:30 AM CDT documented as of this encounter Visit Diagnoses Not on filedocumented in this encounter Care Teams Casino Change Attendant Relationship Specialty Start Date End Date Andrea Chandler MD PCP - General Internal Medicine 03/31/23 documented as of this encounter
--- OUTSIDE RECORDS SUMMARY | 2024-10-17 08:08 | XMS_ITS | Patient Health Record ---
Author Organization [facility] Address [address] [place] [address] Care Team Providers Care Biometrics Technician Name Role Phone Madeline Benton Primary Care Provider [phone] Reason For Referral No Information Medications Medication [...] Insured Coverage Start Date Coverage End Date [facility] [address] [place] [id number] Arti Corrigan Self - patient is the insured [employer] [place] [address] [place] [address] [id number] Arti Corrigan Self - patient is the insured Medical (General) History Medical History History ICD Code high blood pressure diabetes Surgical History Surgery Date(Month/Year) tonsils removed galbladder removed thumb
--- OUTSIDE RECORDS SUMMARY | 2024-10-17 08:09 | XMS_ITS | Clinical Summary ---
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 454 g 1 03/10/20 24 Active TRESIBA [...] 30 tablet 5 09/06/19 25 025 Active Active Problems Problem Noted Date Diagnosed Date Abscess of right breast 10/06/2024 Mammogram abnormal 09/13/2024 Rectal bleeding 08/19/2024 Peritoneal [...] Encounters Date Type Department Care Team Description 10/05/2024 4:15 PM CDT Office Visit [facility] Surgery [address] [facility] Floor 8 [place] [address] Aft, Berenice Sotomayor MD PhD Mammogram abnormal (Primary Dx) 09/29/2024 Orders Only [facility] Rachael Moncada RN Endometrial cancer (HCC) (Primary Dx) 09/28/2024 3:30 PM CDT Infusion [facility] Gynecologic Oncology [facility] ([facility]) [address] [place] [address] Endometrial cancer (HCC) (Primary Dx); Peritoneal carcinomatosis (HCC) 09/28/2024 2:30 PM CDT Office Visit [facility] Obstetrics and Gynecology [address] [place] [address] [facility] 13th [place] [address] [place] [address] Quynh Mims MD Endometrial cancer (HCC) 09/28/2024 Documentation [facility] Obstetrics and Gynecology [address] [facility] 13th [place] [address] [place] [phone] Liane Tovar, NADEGE 09/28/2024 Orders Only [facility] Mirian Lund RN 09/27/2024 Orders Only [facility] Rachael Moncada RN 09/27/2024 Telephone [facility] Cardiothoracic Surgery [address] [facility] 8th Floor [address] Room [phone] [place], [place] [phone] Aft, Berenice Sotomayor MD PhD 09/12/2024 2:30 PM CDT - 09/12/2024 11:59 PM CDT [address] [address] Abscess of right breast Discharge Disposition: Discharge to home or self care 09/12/2024 1:00 PM CDT Office Visit [facility] Surgery [address] [place] [address] 8 [place] [phone] Shalinit, Beernice Sotomayor MD PhD Mammogram abnormal (Primary Dx) 09/12/2024 Orders Only [facility] Surgery [address] [place] [address] 8 [place] [phone] Berenice Lemos MD PhD Abscess of right breast (Primary Dx) 09/07/2024 2:00 PM CDT [facility] Gynecologic Oncology [facility] ([facility]) [address] [place] [address] Peritoneal carcinomatosis (HCC) (Primary Dx); Endometrial cancer (HCC) 09/07/2024 Orders Only [facility] Rachael Moncada RN 09/06/2024 Orders Only [facility] Rachael Moncada RN 08/27/2024 Results Follow-Up [facility] Gastroenterology [address] [facility] 12th [place] [address] [place] [phone] Darius Lindo MD Surgical pathology 08/22/2024 10:45 AM CDT - 08/22/2024 11:25 AM CDT Surgery [facility] [address] [facility] [address] [place] [address] Darius Lindo MD COLON REMOVAL SNARE 08/22/2024 9:46 AM CDT Anesthesia Event [facility] [address] [address] Gavin Jaiems MD Schappe, Elizabeth Mary, CRNA 08/19/2024 1:01 PM CDT - 08/22/2024 2:44 PM CDT Hospital Encounter [facility] 1 [place] [address] Quynh Mims MD Rectal bleeding (Primary Dx) Discharge Disposition: Discharge to home or self care 08/19/2024 Orders Only [facility] Caridad Casanova RN 08/19/2024 Telephone [facility] Obstetrics and Gynecology [address] [place] [address] [facility] 13th [place] [address] Rachael Moncada, NADEGE 08/18/2024 Telephone [facility] Obstetrics and Gynecology [address] [place] [address] Advanced [facility] 13th [place] [address] Rachael Moncada, RN 08/18/2024 Orders Only [facility] Obstetrics and Gynecology [address] [place] [address] [facility] 13th [place] [address] Rachael Moncada, RN Endometrial cancer (HCC) (Primary Dx); Dizzy; Rectal bleeding 08/17/2024 1:00 PM CDT Infusion [facility] Gynecologic [facility] ([facility]) [address] [place] [address] Endometrial cancer (HCC) (Primary Dx); Peritoneal carcinomatosis (HCC) 08/17/2024 Orders Only [facility] Rachael Moncada, RN 08/17/2024 Orders Only [facility] Obstetrics and Gynecology [address] [place] [address] [facility] 13th [place] [address] Rosa Guevara MD 08/16/2024 Orders Only [facility] Rachael Moncada RN 08/05/2024 Orders Only [facility] Rachael Moncada, RN Endometrial cancer (HCC) (Primary Dx) 08/02/2024 Orders Only [facility] Obstetrics and Gynecology [address] [place] [address] [facility] 13th [place] [address] [place] [address] Rachael Moncada, NADEGE Abnormal breast finding (Primary Dx); Abnormal mammogram of right breast; Abscess of right breast 08/02/2024 Orders Only [facility] Obstetrics and Gynecology [address] [place] [address] 13th [place] [address] [place] [address] ProviderRosa MD 08/01/2024 1:18 PM CDT - 08/01/2024 11:59 PM CDT Hospital Encounter [facility] Breast Imaging [address] [facility] Floor 8 [place] [address] Abnormal mammogram Discharge Disposition: Discharge to home or self care 08/01/2024 1:18 PM CDT - 08/01/2024 11:59 PM CDT Hospital Encounter [facility] - Breast Imaging [address] [facility] Floor 8 [place] [address] Endometrial cancer (HCC); Abnormal breast finding Discharge Disposition: Discharge to home or self care 07/28/2024 Telephone [facility]) [address] [place] [address] Sepideh Hernandez RN 07/27/2024 11:50 AM CDT - 07/27/2024 11:59 PM CDT Hospital Encounter [facility] Radiology [facility] ([facility]) [address] [place] [address] Abnormal mammogram Discharge Disposition: Discharge to home or self care 07/27/2024 11:30 AM CDT [facility]fusion [facility] Gynecologic [facility] ([facility]) [address] [place] [address] Peritoneal carcinomatosis (HCC) (Primary Dx); Endometrial cancer (HCC); Encounter for preprocedural laboratory examination 07/27/2024 10:15 AM CDT Office Visit [facility] Obstetrics and Gynecology [address] [facility] 13th [place] [phone] Quynh Mims MD Endometrial cancer (HCC) (Primary Dx); Encounter for preprocedural laboratory examination 07/27/2024 Telephone [facility] ([facility]) [address] [place] [address] Enma Ortiz, NADEGE Appointment (Scheduling of breast biopsy) 07/27/2024 Telephone [facility] Breast [facility] ([facility]) [address] [place] [address] Enma Ortiz, NADEGE Appointment (Scheduling of breast biopsy) 07/27/2024 Telephone [facility] Breast [facility] ([facility]) [address] [place] [phone] Enma Ortiz RN Appointment (Scheduling of breast biopsy) 07/27/2024 Documentation [facility] Obstetrics and Gynecology [address] [facility] 13th [place] [phone] Rachael Moncada, NADEGE 07/27/2024 Orders Only [facility] Obstetrics and Gynecology [address] [place] [address] [facility] 13th [place] [phone] Rachael Moncada, RN Mass of temporal lobe (Primary Dx); Endometrial cancer (HCC) 07/27/2024 Orders Only [facility] Rachael Moncada, RN 07/25/2024 Orders Only [facility] Liane Cooper RN 07/22/2024 Results Follow-Up [facility] Obstetrics and Gynecology [address] [place] [address] Medicine 13th [place] [phone] Rachael Moncada, RN MRI Brain W WO Contrast 07/21/2024 Telephone [facility] Obstetrics and Gynecology [facility] 13th [place] [address] Rachael Moncada RN 07/20/2024 7:42 AM CDT - 07/20/2024 11:59 PM CDT Hospital Encounter [facility] Radiology 1 [place] [address] Quynh Mims MD Endometrial cancer (HCC); Frequent falls; Balance problem Discharge Disposition: Discharge to home or self care from Last 3 Months Immunizations Immunization Administration [...] on file 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 Gender Identity Not on file Sexual Orientation Not on file Obstetrics History Para Term AB IAB SAB Ectopic Multiple Livin g Live Births 1 1 1 Date Outcome GA Total Labor Labor/2nd/3rd Weight Sex Type Anes PTL Perla A1 A5 Name Clin Para Comments x1 Last Filed Vital Signs Vital Sign Reading Time Taken Comments Blood Pressure 129/76 09/28/2024 2:21 PM CDT Pulse 92 09/28/2024 2:21 PM CDT Temperature 36.9 C (98.4 F) 09/28/2024 2:21 PM CDT Respiratory Rate 16 09/28/2024 2:21 PM CDT Oxygen Saturation 97% 09/28/2024 2:21 PM CDT Inhaled Oxygen Concentration - - Weight 84.8 kg (187 lb) 10/05/2024 4:18 PM CDT Height 160 cm (5' 2.99) 10/05/2024 4:18 PM CDT Body Mass Index 33.13 10/05/2024 4:18 PM CDT Plan of Treatment Upcoming Encounters Date Type Department Care Team (Latest Contact Info) Description 11/15/2024 7:30 AM CDT Hospital Encounter [facility] Operating [facility]) [address] [place] [address] Berenice Lemos MD PhD [address] [place] [address] 11/15/2024 7:30 AM CDT - 11/15/2024 8:25 AM CDT Surgery [facility] Operating [facility]) [address] [place] [address] Berenice Lemos MD PhD [address] [place] [address] INCISION AND DRAINAGE - BREAST Scheduled Procedures Name Priority Associated Diagnoses Date/Ti me INCISION AND DRAINAGE - BREAST Abscess of right breast 11/15/2024 7:30 AM CDT Health Maintenance Due Date Last Done Comments Albumin Creatinine Ratio, Urine 1955 Depression Screening 1955 Hepatitis C Screening 1955 Osteoporosis Screening-Bone Density Scan 1955 Dilated Eye Exam 1955 Foot Exam 1955 DTaP/Tdap/Td Vaccine (1 - Tdap) 02/13/1968 Hepatitis B Screening 1975 Pneumococcal vaccine 65+ (1 of 2 - PCV) 02/13/1976 Zoster Vaccine (1 of 2) 02/13/1976 Well Visit 65+ 2022 Covid-19 Vaccine ( - 2023-2 5 season) 2024 04/26/2021, 08/14/2020, 07/17/2020 Influenza Vaccine (Season Ended) 2025 03/06/2023, 02/11/2022, 01/31/2019, Additional history exists Hemoglobin A1C 02/19/2025 08/20/2024, 05/0 01/2024, 04/17/2023 Breast Cancer Screening-Mammogram 08/01/2025 025 Lipid Panel 08/19/2025 08/19/2024 eGFR 08/21/2025 08/21/2024, 08/09, 08/19/2024, Additional history exists Fall Risk Assessment 08/22/2025 08/22/2024 Colon Cancer Screening-Colonoscopy 08/22/20342024, 10/23/2023 Medical Devices Implanted Type Area Group Reservations Coordinator Device Identifier Shelf Expiration Date Model / Serial / Lot [employer] Excela Low Porfile Power Port 8fr 1.6mm 1 Lumen [id number] - [id number] Implanted:Qty: 1 on 05/06/2023 at [facility] [employer] 01/04/2028 [id number] / / [id number] Procedures Procedure Name Priority Date/Time Associated Diagnosis Comments SCAN - LABS 09/29/2024 11:14 AM CDT POCT GLUCOSE DEVICE Routine 09/28/2024 2 :57 PM CDT SCAN - LABS 09/28/2024 1:23 PM CDT SCAN - LABS 09/27/2024 2:52 PM CDT AEROBIC AND ANAEROBIC CULTURE AND GRAM STAIN [...] Endometrial cancer (HCC) Frequent falls Balance problem from Last 3 Months Results * SCAN - LABS (09/29/2024 11:14 AM CDT) Rachael Moncada RN Edited Resul t - Final * (ABNORMAL) POCT glucose (09/28/2024 2:57 PM CDT) Glucose, POC 237(H) 70 - 199 mg/dL Blood 09/28/2024 2:57 PM CDT 09/28/2024 2:57 PM CDT Quynh Mims MD LAB POCT ORDERABLES - DEVICE Final Result [facility] Department [place] [address] * SCAN - LABS (09/28/2024 1:23 PM CDT) Mirian Lund RN Final Result * SCAN - LABS (09/27/2024 2:52 PM CDT) Rachael Moncada RN Final Result * (ABNORMAL) Aerobic and anaerobic culture and gram stain Abscess Breast, right (09/12/2024 5:58 PM CDT) Direct Specimen Exam Stain: No polymorphonuclear leukocytes seen. No organisms seen. Report Final Report: Few Mixed aerobic and anaerobic microorganisms (.) [facility] Organism MIXED AEROBIC AND ANAEROBIC MICROORGANISMS [facility] Abscess (Breast, right) 09/12/2024 5:58 PM CDT 09/12/2024 6:36 PM CDT [facility]ative [facility] - 09/18/2024 1:28 PM CDT Specimen received on an ESwab. Testing performed by [facility] Microbiology Laboratory ([phone]) Specimens submitted from normally sterile body sites [...] LAB MICROBIOLOGY - GENERAL ORDERABLES Final Result Performing Organization Address [facility] de Phone Number [facility] Department [place] [address] * SCAN - LABS (09/07/2024 2:47 PM CDT) Rachael Moncada RN Final Result * SCAN - LABS (09/06/2024 10:11 PM CDT) Rachael Moncada RN Final Result * SCAN - LABS (09/05/2024 3:10 PM CDT) Rachael Moncada RN Final Result * POCT glucose (08/22/2024 12:23 PM CDT) Glucose, POC 89 70 - 199 mg/dL Blood 08/22/2024 12:2 3 PM CDT 08/22/2024 12:23 PM CDT Quynh Mims MD LAB POCT ORDERABLES - DEVICE Final Result Performing Organization Address [facility] de Phone Number [facility] [place] [address] * Surgical pathology (08/22/2024 10:07 AM CDT) Tissue (Polyp(s), colon/colorectal, esophageal, gastric) 08/22/2024 10:07 AM CDT Tissue specimen (specimen) (Polyp(s), colon/colorectal, esophageal, gastric) 08/22/2024 10:09 AM CDT Tissue specimen (specimen) (Polyp(s), colon/colorectal, esophageal, gastric) 08/22/2024 10:21 AM CDT Tissue specimen (specimen) (Polyp(s), colon/colorectal, esophageal, gastric) 08/22/2024 10:33 AM CDT Tissue specimen (specimen) (Polyp(s), colon/colorectal, esophageal, gastric) 08/22/2024 10:45 AM CDT Narrative PATHOLOGY [facility] - 08/23/2024 5:08 PM CDT EPIC results best viewed via link to PDF [facility] [place] [address] Note to Patients: This report may contain [...] Gender: F : 1955 (Age: 69) Address: [address] [place] [address] Hospital #: [id number] Taken:08/22/2024 Received:08/22/2024 Reported: 08/23/2024 Patient Type: [facility] Inpatient Service: Gynecology Location: [place] [address] Physician(s): Prakash Monahan M.D. Diagnosis: A. Large bowel, cecal polyp, biopsy - Tubular adenoma. B. Large bowel, ascending colon polyp, biopsy - Tubular adenoma. C. Large bowel, ascending colon polyp, biopsy - Sessile serrated adenoma/lesion. D. Large bowel, descending colon polyp, biopsy - Tubular adenoma. E. Large bowel, rectal polyp, biopsy - Hyperplastic polyp. recr/08/23/2024 09:28 By this signature, I attest that [...] in greatest dimension. Labeled E1. Jar 0. [facility]/08/22/2024 12:48 PA(s): Thu Gutierres By this signature, I attest that the above diagnosis is based upon my personal examination of the slides(and/or other material). Addenda/Procedures The performance characteristics of some immunohistochemical stains, fluorescence in-situ hybridization tests and immunophenotyping by flow cytometry cited in this report (if any) were determined by the Surgical Pathology and Flow Cytometry Departments at [facility] as part of an ongoing head of quality program and in compliance with federally mandated [...] Surgical Pathology and Flow Cytometry Departments of [facility]. It has not been cleared or approved by the U. S. Food and Drug Administration. IMAGES AND SCANNED DOCUMENTS, IF INCLUDED, ONLY VIEWABLE IN PDF VERSION OF REPORT us Darius Lindo MD LAB PATHOLOGY ORDERABLES F inal Result PATHOLOGY [facility] 3rd Floor [place], [place] [phone] * Colonoscopy (08/22/2024 9:46 AM CDT) Anatomical Region Laterality Modality Other Narrative Procedure Note Darius Lindo MD - 08/22/2024 9:46 AM CDT GI ENDOSCOPY [facility] Patient Name: Rhonda Wiseman Procedure Date: 08/22/2024 9:46 AM Date of : 1955 Admit Type: Inpatient Age: 69 Gender: Female Attending MD: Darius Lindo M.D. Room: [facility] 3 Note Status: Finalized [...] The scope was passed under direct vision.The [id number] endoscope was introduced through the anus and advanced to the cecum, identified by appendiceal orifice and ileocecal valve. The bowel preparation used was GoLYTELY via split dose instruction. The quality of the bowel preparationwas evaluated using the BBPS ([place] Bowel Preparation Scale) with scores of: Right [...] clip was successfully placed (MR conditional). 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 There was no bleeding at the end [...] retrieved. Clip (MR conditional) was placed. 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 - One 14 mm polyp in the [...] the entire procedure. Electronically signed by Darius Korenblat, M.D. Darius Lindo M.D. 08/22/2024 11:00:59 AM . Number of Addenda: 0 Note Initiated On: 08/22/2024 9:46 AM us Darius Lindo MD ENDOSCOPY PROCEDURES Final Result * POCT glucose (08/22/2024 9:40 AM CDT) Glucose, POC 82 70 - 199 mg/dL Blood 08/22/2024 9:40 AM CDT 08/22/2024 9:40 AM CDT Quynh Mims MD LAB POCT ORDERABLES - DEVICE Final Result Performing Organization Address [facility] Co de Phone Number [facility] Department [place] [address] * POCT glucose (08/22/2024 7:46 AM CDT) Glucose, POC 82 70 - 199 mg/dL Blood 08/22/2024 7:46 AM CDT 08/22/2024 7:46 AM CDT Result [facility] Quynh Mims MD LAB POCT ORDERABLES - DEVICE Final Result Performing Organization Address [facility] de Phone Number [facility] Department [place] [address] * Potassium, whole blood (08/22/2024 5:57 AM CDT) Potassium, bld 3.8 3.3 - 4.9 mmol/L Blood 08/22/2024 5:57 AM CDT 08/22/2024 6:13 AM CDT Narrative [facility] - 08/22/2024 6:13 AM CDT Whenever K Repletion finished us Quynh Mims MD LAB BLOOD ORDERABLES Final Result Performing Organization Address [facility] Co de Phone Number [facility] Department [place] [address] * eGFR (08/21/2024 9:04 PM CDT) eGFR 66 >=60 mL/min/1. 73 m2 Comment: [...] BLOOD ORDERABLES Final Result Performing Organization Address [facility] Co de Phone Number [facility]STY[facility] ORTIZ [facility] Department [place] [address] * (ABNORMAL) aPTT (08/21/2024 9:04 PM CDT) [...] BLOOD ORDERABLES Final Result Performing Organization Address [facility] de Phone Number [facility] Department [place] [address] * (ABNORMAL) Protime-INR (08/21/2024 9:04 PM CDT) Pathologist [facility] PT 13.7(H) 9.7 - 13.0 sec INR 1.26(H) 0.90 - 1.20 [facility] Comment: Interpretive data Oral anticoagulant therapeutic ranges: Venous thromboembolism prophylaxis or treatment: 2.0-3.0 CARDIOLOGY Standard range: 2.0-3.0 High-intensity range: 2.5-3.5 Refer to indication-specific guidelines for appropriate target ranges for prosthetic heart valve replacement. Current interpretive data was last revised on 2019. Blood 08/21/2024 9:04 PM CDT 08/21/2024 10:09 PM CDT Quynh Mims MD LAB BLOOD ORDERABLES Final Result Performing Organization Address [facility] de Phone Number [facility] Department [place] [address] * (ABNORMAL) CBC without differential (08/21/2024 9:04 PM CDT) Pathologist [facility] WBC 10.30(H) 3.80 - 9.90 K/cumm Hgb 8.8(L) 11.9 - 15.5 g/dL [facility] Hct 25.5(L) 35.6 - 45.5 % [facility] Plt 175 150 - 400 K/cumm [facility] MPV 11.6 9.1 - 12.3 fL [facility] RBC 2.91(L) 3.90 - 5.20 M/cumm [facility] MCV 87.6 81.3 - 96.4 fL [facility] MCH 30.2 27.1 - 33.3 pg [facility] MCHC 34.5 32.3 - 35.7 g/dL [facility] RDW CV 15.8(H) 11.1 - 14.9 % [facility] RDW SD 49.1(H) 35.7 - 48.1 fL [facility] NRBC abs 0.00 0.00 - 0.01 K/cumm [facility] Blood 08/21/2024 9:04 PM CDT 08/21/2024 9:57 PM CDT Darius Lindo MD LAB BLOOD ORDERABLES Final Result Performing Organization Address City/[facility] Co de Phone Number [facility] [place] [address] * Phosphorus (08/21/2024 9:04 PM CDT) Phosphorus, pl 2.6 2.3 - 4.5 mg/dL Blood 08/21/2024 9:04 PM CDT 08/21/2024 9:56 PM CDT Darius Lindo MD LAB BLOOD ORDERABLES Final Result Performing Organization Address [facility] Co de Phone Number [facility] [employer] [place] [address] * Magnesium (08/21/2024 9:04 PM CDT) Magnesium 1.8 1.4 - 2.5 mg/dL Blood 08/21/2024 9:04 PM CDT 08/21/2024 9:56 PM CDT Quynh Mims MD LAB BLOOD ORDERABLES Final Result Performing Organization Address [facility] Co de Phone Number [facility] Department [place] [address] * (ABNORMAL) Basic metabolic panel (08/21/2024 9:04 PM CDT) Pathologist [facility] Sodium 142 135 - 145 mmol/L Potassium, pl 3.4 3.3 - 4.9 mmol/L [facility] Chloride 108 97 - 110 mmol/L [facility] CO2 23 22 - 32 mmol/L [facility] Anion gap 11 2 - 15 mmol/L [facility] BUN 9 6 - 25 mg/dL [facility] Creatinine 0.95 0.60 - 1.10 mg/dL [facility] Glucose 74 70 - 199 mg/dL [facility] Comment: Interpretive Data Fasting glucose >/= 126 [...] 2022. Calcium 8.2(L) 8.5 - 10.3 mg/dL [facility] Blood 08/21/2024 9:04 PM CDT 08/21/2024 9:56 PM CDT Darius Lindo MD LAB BLOOD ORDERABLES Final Result [facility] Department [place] [address] * POCT glucose (08/21/2024 8:44 PM CDT) Pathologist [facility] Glucose, POC 96 70 - 199 mg/dL Blood 08/21/2024 8:44 PM CDT 08/21/2024 8:44 PM CDT us Quynh Mims MD LAB POCT ORDERABLES - DEVICE Final Result Performing Organization Address [facility] [facility] Co de Phone Number [facility] [place] [address] * POCT glucose (08/21/2024 5:49 PM CDT) Glucose, POC 98 70 - 199 mg/dL Blood 08/21/2024 5:49 PM CDT 08/21/2024 5:49 PM CDT us Quynh Mims MD LAB POCT ORDERABLES - DEVICE Final Result Performing Organization Address [facility] de Phone Number [facility] [place] [address] * POCT glucose (08/21/2024 12:27 PM CDT) Glucose, POC 138 70 - 199 mg/dL Blood 08/21/2024 12:2 7 PM CDT 08/21/2024 12:27 PM CDT us Quynh Mims MD LAB POCT ORDERABLES - DEVICE Final Result Performing Organization Address [facility] [place] [address] * MRI Pelvis W WO Contrast (08/21/2024 [...] * POCT glucose (08/21/2024 7:35 AM CDT) Glucose, POC 144 70 - 199 mg/dL Blood 08/21/2024 7:35 AM CDT 08/21/2024 7:35 AM CDT us Quynh Mims MD LAB POCT ORDERABLES - DEVICE Final Result Performing Organization Address [facility]/ZIP Co de Phone Number [facility] [place] [address] * (ABNORMAL) CBC without differential (08/21/2024 6:43 AM CDT) [facility] WBC 9.46 3.80 - 9.90 K/cumm Hgb 8.3(L) 11.9 - 15.5 g/dL [facility] Hct 24.2(L) 35.6 - 45.5 % [facility] Plt 167 150 - 400 K/cumm [facility] MPV 11.4 9.1 - 12.3 fL [facility] RBC 2.78(L) 3.90 - 5.20 M/cumm [facility] MCV 87.1 81.3 - 96.4 fL [facility] MCH 29.9 27.1 - 33.3 pg [facility] MCHC 34.3 32.3 - 35.7 g/dL [facility] RDW CV 15.9(H) 11.1 - 14.9 % [facility] RDW SD 49.6(H) 35.7 - 48.1 fL [facility] NRBC abs 0.00 0.00 - 0.01 K/cumm [facility] Blood 08/21/2024 6:43 AM CDT 08/21/2024 7:12 AM CDT us Quynh Mims MD LAB BLOOD ORDERABLES Final Result [facility] [place] [address] * Transfuse RBC (08/21/2024 2:13 AM CDT) Blood us Quynh Mims MD BLOOD TRANSFUSION OR DERABLES Final Result [facility] [place] [address] * Prepare RBC: 1 Units (08/20/2024 11:19 PM CDT) Product code [id number] Unit Number [id number] [facility] Product Blood Type APOS [facility] Dispense Status PRESUMED TRANSFUSED [facility] Blood 08/20/2024 11:1 9 PM CDT 08/20/2024 11:19 PM CDT Narrative [facility] - 08/21/2024 4:01 PM CDT Are special requirements needed? (All products are leukoreduced and CMV- safe)- >No Date required:-[id number] LRRBC # of Hfubs-1-Gyupk Reasons:-Hgb <7 g/dL} us Quynh Mims MD BLOOD BANK PRODUCT O RDERABLES Final Result [facility] [place] [address] * (ABNORMAL) eGFR (08/20/2024 8:55 PM CDT) [...] BLOOD ORDERABLES Final Result Performing Organization Address [facility] Co de Phone Number [facility] [place] [address] * (ABNORMAL) CBC without differential (08/20/2024 8:55 PM CDT) [facility] WBC 9.85 3.80 - 9.90 K/cumm Hgb 6.9(L) 11.9 - 15.5 g/dL [facility] Hct 20.1(L) 35.6 - 45.5 % [facility] Plt 164 150 - 400 K/cumm [facility] MPV 11.4 9.1 - 12.3 fL [facility] RBC 2.31(L) 3.90 - 5.20 M/cumm [facility] MCV 87.0 81.3 - 96.4 fL [facility] MCH 29.9 27.1 - 33.3 pg [facility] MCHC 34.3 32.3 - 35.7 g/dL [facility] RDW CV 16.8(H) 11.1 - 14.9 % [facility] RDW SD 51.7(H) 35.7 - 48.1 fL [facility] NRBC abs 0.02(H) 0.00 - 0.01 K/cumm [facility] Blood 08/20/2024 8:55 PM CDT 08/20/2024 9:49 PM CDT Darius Lindo MD LAB BLOOD ORDERABLES Final Result Performing Organization Address [facility] Co de Phone Number [facility] [place] [address] * Phosphorus (08/20/2024 8:55 PM CDT) [facility] Phosphorus, pl 3.0 2.3 - 4.5 mg/dL Blood 08/20/2024 8:55 PM CDT 08/20/2024 9:48 PM CDT Darius Lindo MD LAB BLOOD ORDERABLES Final Result Performing Organization Address City/[facility]/ZIP Co de Phone Number [facility] [place] [address] * Magnesium (08/20/2024 8:55 PM CDT) [facility] Magnesium 1.9 1.4 - 2.5 mg/dL Blood 08/20/2024 8:55 PM CDT 08/20/2024 9:48 PM CDT Quynh Mims MD LAB BLOOD ORDERABLES Final Result Performing Organization Address City/[facility] de Phone Number [facility] [place] [address] * (ABNORMAL) Basic metabolic panel (08/20/2024 8:55 PM CDT) [facility] Sodium 140 135 - 145 mmol/L Potassium, pl 3.8 3.3 - 4.9 mmol/L [facility] Chloride 111(H) 97 - 110 mmol/L [facility] CO2 22 22 - 32 mmol/L [facility] Anion gap 7 2 - 15 mmol/L [facility] BUN 17 6 - 25 mg/dL [facility] Creatinine 1.09 0.60 - 1.10 mg/dL [facility] Glucose 210(H) 70 - 199 mg/dL [facility] Comment: Interpretive Data Fasting glucose >/= 126 [...] 2022. Calcium 7.8(L) 8.5 - 10.3 mg/dL [facility] Blood 08/20/2024 8:55 PM CDT 08/20/2024 9:48 PM CDT Darius Lindo MD LAB BLOOD ORDERABLES Final Result Performing Organization Address City/[facility] Co de Phone Number [facility] [place] [address] * (ABNORMAL) POCT glucose (08/20/2024 8:54 PM CDT) Glucose, POC 258(H) 70 - 199 mg/dL Blood 08/20/2024 8:54 PM CDT 08/20/2024 8:54 PM CDT Quynh Mims MD LAB POCT ORDERABLES - DEVICE Final Result Performing Organization Address [facility] Co de Phone Number [facility] [place] [address] * (ABNORMAL) POCT glucose (08/20/2024 4:48 PM CDT) Glucose, POC 210(H) 70 - 199 mg/dL Blood 08/20/2024 4:48 PM CDT 08/20/2024 4:48 PM CDT Quynh Mims MD LAB POCT ORDERABLES - DEVICE Final Result Performing Organization Address City/[facility] Co de Phone Number [facility] [place] [address] * POCT glucose (08/20/2024 12:24 PM CDT) [facility] Glucose, POC 105 70 - 199 mg/dL Blood 08/20/2024 12:2 4 PM CDT 08/20/2024 12:24 PM CDT Quynh Mims MD LAB POCT ORDERABLES - DEVICE Final Result Performing Organization Address [facility] Co de Phone Number [facility] [email or web address] [address] * (ABNORMAL) CBC without differential (08/20/2024 5:15 AM CDT) [facility] WBC 14.24(H) 3.80 - 9.90 K/cumm Hgb 7.5(L) 11.9 - 15.5 g/dL [facility] Hct 22.3(L) 35.6 - 45.5 % [facility] Plt 170 150 - 400 K/cumm [facility] MPV 11.3 9.1 - 12.3 fL [facility] RBC 2.53(L) 3.90 - 5.20 M/cumm [facility] MCV 88.1 81.3 - 96.4 fL [facility] MCH 29.6 27.1 - 33.3 pg [facility] MCHC 33.6 32.3 - 35.7 g/dL [facility] RDW CV 16.1(H) 11.1 - 14.9 % [facility] RDW SD 50.4(H) 35.7 - 48.1 fL [facility] NRBC abs 0.03(H) 0.00 - 0.01 K/cumm [facility] Blood 08/20/2024 5:15 AM CDT 08/20/2024 6:10 AM CDT us Quynh Mims MD LAB BLOOD ORDERABLES Final Result Performing Organization Address [facility]/ZIP Co de Phone Number [facility] [place] [address] * (ABNORMAL) Hemoglobin A1c (08/20/2024 5:15 AM CDT) Hgb A1C 7.0(H) 4.0 - 5.6 % Estimated Average Glucose 154 mg/dL [facility] Comment: The ADA recommends reporting an estimated [...] BLOOD ORDERABLES Final Result Performing Organization Address [facility] Co de Phone Number [facility] [place] [address] * POCT glucose (08/20/2024 5:14 AM CDT) [facility] Glucose, POC 78 70 - 199 mg/dL Blood 08/20/2024 5:14 AM CDT 08/20/2024 5:14 AM CDT Quynh Mims MD LAB POCT ORDERABLES - DEVICE Final Result Performing Organization Address City/[facility] Co de Phone Number [facility] [place] [address] * eGFR (08/19/2024 11:58 PM CDT) Pathologist [facility] eGFR 60 >=60 mL/min/1. 73 m2 Comment: [...] Mims MD LAB BLOOD ORDERABLES Final Result [facility] Department [place] [address] * (ABNORMAL) CBC without differential (08/19/2024 11:58 PM CDT) WBC 13.63(H) 3.80 - 9.90 K/cumm Hgb 7.1(L) 11.9 - 15.5 g/dL [facility] Hct 21.3(L) 35.6 - 45.5 % [facility] Plt 166 150 - 400 K/cumm [facility] MPV 11.4 9.1 - 12.3 fL [facility] RBC 2.42(L) 3.90 - 5.20 M/cumm [facility] MCV 88.0 81.3 - 96.4 fL [facility] MCH 29.3 27.1 - 33.3 pg [facility] MCHC 33.3 32.3 - 35.7 g/dL [facility] RDW CV 15.9(H) 11.1 - 14.9 % [facility] RDW SD 50.1(H) 35.7 - 48.1 fL [facility] NRBC abs 0.02(H) 0.00 - 0.01 K/cumm [facility] Blood 08/19/2024 11:5 8 PM CDT 08/20/2024 12:26 AM CDT us Darius Lindo MD LAB BLOOD ORDERABLES Final Result Performing Organization Address [facility] Co de Phone Number [facility] [place] [address] * Phosphorus (08/19/2024 11:58 PM CDT) Phosphorus, pl 3.1 2.3 - 4.5 mg/dL Blood 08/19/2024 11:5 8 PM CDT 08/20/2024 12:17 AM CDT Darius Lindo MD LAB BLOOD ORDERABLES Final Result Performing Organization Address [facility] de Phone Number [facility] Department [place] [address] * Magnesium (08/19/2024 11:58 PM CDT) Pathologist [facility] Magnesium 2.0 1.4 - 2.5 mg/dL Blood 08/19/2024 11:5 8 PM CDT 08/20/2024 12:17 AM CDT Quynh Mims MD LAB BLOOD ORDERABLES Final Result Performing Organization Address [facility] de Phone Number [facility] [place] [address] * (ABNORMAL) Lipid panel (08/19/2024 11:58 PM [...] revised on 2017. Triglycerides 99 <=149 mg/dL [facility] Comment: Interpretive Data Ages < or = [...] revised on 2017. HDL 30(L) >=40 mg/dL [facility] Comment: Interpretive Data Ages < or = [...] on 2017. LDL, calculated 42 <=129 mg/dL [facility] Comment: Interpretive Data Ages < or = 19 years Acceptable: <110 mg/dL Borderline high: 110-129 mg/dL High: >or= 130 mg/dL Ages > or = 20 years Optimal: <100 mg/dL Near optimal: 100-129 mg/dL Borderline high: 130-159 mg/dL High: >160 mg/dL Calculated using the Mckeon LDL-C estimating equation. This equation was implemented on 2023. Prior to this date LDL-C was estimated using the Friedewald equation. Literature References: 1. Expert Panel on Integrated Guidelines for Cardiovascular Health and Risk Reduction in Children and Adolescents. Pediatrics 2011;128:S213 2. NCEP Expert Panel. Circulation 2004;110:227 3. Mike M et al. CAMILA Cardiol. 2020 September 08;5(5):540-548. doi: 10.1001/jamacardio.2020.0013 Current Interpretive Data was last revised on 2023. Non-HDL Cholesterol 61 mg/dL [facility] Comment: Interpretive Data Ages < or = [...] last revised on 2017. Chol/HDL ratio 3 [facility] Blood 08/19/2024 11:5 8 PM CDT 08/20/2024 12:26 AM CDT Narrative [facility] - 08/20/2024 8:24 AM CDT reflex us Quynh Mims MD LAB BLOOD ORDERABLES Final Result [facility] Department [place] [address] * (ABNORMAL) Basic metabolic panel (08/19/2024 11:58 PM CDT) Sodium 143 135 - 145 mmol/L Potassium, pl 3.3 3.3 - 4.9 mmol/L [facility] Chloride 112(H) 97 - 110 mmol/L [facility] CO2 23 22 - 32 mmol/L [facility] Anion gap 8 2 - 15 mmol/L [facility] BUN 21 6 - 25 mg/dL [facility] Creatinine 1.03 0.60 - 1.10 mg/dL [facility] Glucose 82 70 - 199 mg/dL [facility] Comment: Interpretive Data Fasting glucose >/= 126 [...] 2022. Calcium 8.1(L) 8.5 - 10.3 mg/dL [facility] Blood 08/19/2024 11:5 8 PM CDT 08/20/2024 12:17 AM CDT us Quynh Mims MD LAB BLOOD ORDERABLES Final Result Performing Organization Address [facility] Co de Phone Number [facility] [employer] [place] [address] * POCT glucose (08/19/2024 11:57 PM CDT) [facility] Glucose, POC 87 70 - 199 mg/dL Blood 08/19/2024 11:5 7 PM CDT 08/19/2024 11:57 PM CDT us Quynh Mims MD LAB POCT ORDERABLES - DEVICE Final Result Performing Organization Address City/[facility] Co de Phone Number [facility] [place] [address] * Transfuse RBC (08/19/2024 10:44 PM CDT) Blood us Quynh Mims MD BLOOD TRANSFUSION OR DERABLES Final Result Performing Organization Address City/[facility] Co de Phone Number [facility] [place] [address] * POCT glucose (08/19/2024 8:26 PM CDT) Glucose, POC 153 70 - 199 mg/dL Blood 08/19/2024 8:26 PM CDT 08/19/2024 8:26 PM CDT us Quynh Mims MD LAB POCT ORDERABLES - DEVICE Final Result Performing Organization Address [facility] de Phone Number [facility] [place] [address] * Transfuse RBC (08/19/2024 6:55 PM CDT) Blood us Quynh Mims MD BLOOD TRANSFUSION OR DERABLES Final Result Performing Organization Address [facility] de Phone Number [facility] [place] [address] * POCT glucose (08/19/2024 4:51 PM CDT) Pathologist [facility] Glucose, POC 127 70 - 199 mg/dL Blood 08/19/2024 4:51 PM CDT 08/19/2024 4:51 PM CDT us Quynh Mims MD LAB POCT ORDERABLES - DEVICE Final Result Performing Organization Address [facility] [place] [address] * CT Abdomen Pelvis W WO Contrast [...] Units (08/19/2024 2:37 PM CDT) Product code [id number] Unit Number [id number] [facility] Product Blood Type APOS [facility] Dispense Status PRESUMED TRANSFUSED [facility] Product code [id number] [employer] [facility] Unit Number [id number] [facility] Product Blood Type APOS [employer] [facility] Dispense Status PRESUMED TRANSFUSED [facility] Blood 08/19/2024 2:37 PM CDT 08/19/2024 2:37 PM CDT Narrative [facility] - 08/20/2024 8:03 AM CDT Are special requirements needed? (All products are leukoreduced and CMV- safe)- >No Date required:-[id number] LRRBC # of Seikw-0-Puwto Reasons:-Hgb <7 g/dL} Quynh Mims MD BLOOD BANK PRODUCT O RDERABLES Final Result Performing Organization Address City/[facility]/ZIP Co de Phone Number [facility] Department [place] [address] * (ABNORMAL) eGFR (08/19/2024 1:54 PM CDT) [...] BLOOD ORDERABLES Final Result Performing Organization Address City/[facility]/ZIP Co de Phone Number [facility] [place] [address] * (ABNORMAL) Differential, auto (08/19/2024 1:54 PM CDT) Neutrophil abs 8.26(H) 1.50 - 6.50 K/cumm Imm gran abs 0.12(H) 0.00 - 0.10 K/cumm [facility] Lymphocyte abs 2.15 0.80 - 3.30 K/cumm [facility] Monocyte abs 0.82(H) 0.20 - 0.80 K/cumm [facility] Eosinophil abs 0.11 0.00 - 0.50 K/cumm [facility] Basophil abs 0.02 0.00 - 0.10 K/cumm [facility] Neutrophil pct 72.0 % [facility] Comment: Interpretive Data Percent cell count reference ranges are not reported, since discordance with absolute values may lead to misinterpretation of CBC data. Current Interpretive Data was last revised on 2017. Imm gran pct 1.0 % [facility] Comment: Interpretive Data Percent cell count reference ranges are not reported, since discordance with absolute values may lead to misinterpretation of CBC data. Current Interpretive Data was last revised on 2017. Lymphocyte pct 18.7 % [facility] Comment: Interpretive Data Percent cell count reference ranges are not reported, since discordance with absolute values may lead to misinterpretation of CBC data. Current Interpretive Data was last revised on 2017. Monocyte pct 7.1 % [facility] Comment: Interpretive Data Percent cell count reference ranges are not reported, since discordance with absolute values may lead to misinterpretation of CBC data. Current Interpretive Data was last revised on 2017. Eosinophil pct 1.0 % [facility] Comment: Interpretive Data Percent cell count reference ranges are not reported, since discordance with absolute values may lead to misinterpretation of CBC data. Current Interpretive Data was last revised on 2017. Basophil pct 0.2 % [facility] Comment: Interpretive Data Percent cell count reference ranges are not reported, since discordance with absolute values may lead to misinterpretation of CBC data. Current Interpretive Data was last revised on 2017. Blood 08/19/2024 1:54 PM CDT 08/19/2024 2:17 PM CDT Quynh Mims MD LAB BLOOD ORDERABLES Final Result [facility] Department [place] [address] * (ABNORMAL) CBC with auto differential (08/19/2024 1:54 PM CDT) [facility] WBC 11.48(H) 3.80 - 9.90 K/cumm Hgb 4.6(C) 11.9 - 15.5 g/dL [facility] Comment:This result has been called to MONTSERRAT DE LEÓN RN by [email or web address] on 08/19/2024 14:32:32, and has been read back. Hct 14.2(L) 35.6 - 45.5 % [facility] Plt 166 150 - 400 K/cumm [facility] MPV 11.5 9.1 - 12.3 fL [facility] RBC 1.54(L) 3.90 - 5.20 M/cumm [facility] MCV 92.2 81.3 - 96.4 fL [facility] MCH 29.9 27.1 - 33.3 pg [facility] MCHC 32.4 32.3 - 35.7 g/dL [facility] RDW CV 16.6(H) 11.1 - 14.9 % [facility] RDW SD 54.9(H) 35.7 - 48.1 fL [facility] NRBC abs 0.00 0.00 - 0.01 K/cumm [facility] Blood 08/19/2024 1:54 PM CDT 08/19/2024 2:17 PM CDT Quynh Mims MD LAB BLOOD ORDERABLES Final Result [facility] Department [place] [address] * (ABNORMAL) aPTT (08/19/2024 1:54 PM CDT) [...] BLOOD ORDERABLES Final Result Performing Organization Address [facility] Co de Phone Number [facility] [place] [address] * (ABNORMAL) Protime-INR (08/19/2024 1:54 PM CDT) Pathologist [facility] PT 13.9(H) 9.7 - 13.0 sec INR 1.28(H) 0.90 - 1.20 [facility] Comment: Interpretive data Oral anticoagulant therapeutic ranges: Venous thromboembolism prophylaxis or treatment: 2.0-3.0 CARDIOLOGY Standard range: 2.0-3.0 High-intensity range: 2.5-3.5 Refer to indication-specific guidelines for appropriate target ranges for prosthetic heart valve replacement. Current interpretive data was last revised on 2019. Blood 08/19/2024 1:54 PM CDT 08/19/2024 2:21 PM CDT Quynh Mims MD LAB BLOOD ORDERABLES Final Result Performing Organization Address City/[facility]/ZIP Co de Phone Number [facility] [place] [place] [address] * Type and screen (08/19/2024 1:54 PM CDT) ABO Rh A Positive Ramon, indirect Negative [facility] Blood 08/19/2024 1:54 PM CDT 08/19/2024 2:26 PM CDT Narrative [facility] - 08/19/2024 3:17 PM CDT Has the patient had Daratumumab or Isatuximab in the past 6 months?->Unknown Quynh Mims MD LAB BLOOD BANK TEST ORDERABLES Final Result Performing Organization Address City/[facility]/ZIP Co de Phone Number [facility] [place] [address] * Phosphorus (08/19/2024 1:54 PM CDT) Pathologist [facility] Phosphorus, pl 3.3 2.3 - 4.5 mg/dL Blood 08/19/2024 1:54 PM CDT 08/19/2024 2:14 PM CDT Darius Lindo MD LAB BLOOD ORDERABLES Final Result Performing Organization Address City/[facility]/ZIP Co de Phone Number [facility] [place] [address] * Magnesium (08/19/2024 1:54 PM CDT) Pathologist [facility] Magnesium 2.1 1.4 - 2.5 mg/dL Blood 08/19/2024 1:54 PM CDT 08/19/2024 2:14 PM CDT Quynh Mims MD LAB BLOOD ORDERABLES Final Result Performing Organization Address City/[facility] [place] [address] * (ABNORMAL) Comprehensive metabolic panel (08/19/2024 1:54 PM CDT) Pathologist [facility] Sodium 143 135 - 145 mmol/L Potassium, pl 3.7 3.3 - 4.9 mmol/L [facility] Chloride 112(H) 97 - 110 mmol/L [facility] CO2 21(L) 22 - 32 mmol/L [facility] Anion gap 10 2 - 15 mmol/L [facility] BUN 25 6 - 25 mg/dL [facility] Creatinine 1.07 0.60 - 1.10 mg/dL [facility] Glucose 189 70 - 199 mg/dL [facility] Comment: Interpretive Data Fasting glucose >/= 126 [...] 2022. Calcium 8.0(L) 8.5 - 10.3 mg/dL [facility] Bilirubin, total <0.2 0.1 - 1.2 mg/dL [facility] Protein, pl 5.7(L) 6.5 - 8.5 g/dL [facility] Albumin 3.5 3.5 - 5.0 g/dL [facility] Alk phos 52 40 - 130 Units/L [facility] ALT 15 7 - 45 Units/L [facility] AST 17 10 - 45 Units/L [facility] Blood 08/19/2024 1:54 PM CDT 08/19/2024 2:14 PM CDT us Quynh Mims MD LAB BLOOD ORDERABLES Final Result [facility] [place] [address] * SCAN - LABS (08/19/2024 12:04 PM CDT) us Caridad Casanova RN Final Result * SCAN [...] * MISC-ORDER (08/02/2024 9:07 AM CDT) Result [facility] Historical Provider LAB BLOOD ORDERABLES [...] RIGHT breast was performed by a trained cut and print machine operator and by Dr. Hampton . BREAST PARENCHYMAL [...] RIGHT breast was performed by a trained cut and print machine operator and by Dr. Hampton . BREAST PARENCHYMAL [...] RIGHT breast was performed by a trained cut and print machine operator and by Dr. Hampton . BREAST PARENCHYMAL [...] RIGHT breast was performed by a trained cut and print machine operator and by Dr. Hampton . BREAST PARENCHYMAL [...] images may or may not represent the sycuan source data set and thus may contain [...] FACILITY PERFORMING OUTSIDE IMAGING: [facility] EXAM(S) REVIEWED: 1. BILATERAL DIAGNOSTIC MAMMOGRAM WITH [...] FACILITY PERFORMING OUTSIDE IMAGING: [facility] EXAM(S) REVIEWED: 1. BILATERAL DIAGNOSTIC MAMMOGRAM WITH [...] images may or may not represent the sycuan source data set and thus may contain changes which may lower the sensitivity of the second opinion interpretation. Dictated by: Marlena Petty M.D. The radiology attending physician has personally reviewed this study, and had reviewed and/or edited this written report and agrees with it. Electronically signed by: Estee Dowd M.D. Quynh Mims MD IM MAMMO PROCEDURES Final Result * (ABNORMAL) Protime-INR (07/27/2024 11:41 AM CDT) PT 13.7(H) 9.7 - 13.0 sec INR 1.26(H) 0.90 - 1.20 [facility] Comment: Interpretive data Oral anticoagulant [...] BLOOD ORDERABLES Final Result [facility] [place] [address] * SCAN - LABS (07/27/2024 9:02 AM [...] (Axial Sectra reconstruction images, image 102; Series 94216, image 19; Series 17814, image 71). Mild degree of scattered foci [...] (Axial Sectra reconstruction images, image 102; Series 43911, image 19; Series 75921, image 71). Mild degree of scattered foci [...] by: Rosalinda Galvez M.D. Quynh Mims MD IMG MRI PROCEDURES F inal Result from Last 3 Months Insurance [facility] MEDICARE [place] Advance Directives For more information, please contact: [phone] * Full Code (Latest Code Status on File) Date Activated Date Inactivated Comments 08/19/2024 1:31 PM 08/22/2024 6:55 PM * Full Code Date Activated Date Inactivated Comments 10/23/2023 7:57 AM 10/23/2023 1:38 PM Care Teams Java J[employer] Developer Relationship Specialty Start Date End Date Andrea Chandler MD PCP - General Internal Medicine 03/31/23
--- OUTSIDE RECORDS SUMMARY | 2024-10-17 08:09 | XMS_ITS | Referral Summary ---
Author Organization [facility] [address] Address [address] [place] [address] Care Team Providers Care Thread Winder Name Role Phone Andrea Chandler MD Primary Care Provider [phone] Encounters Date Type Department Care Team Description 10/05/2024 4:15 PM CDT Office Visit [facility] [address] [facility] Floor 8 [place] [phone] Aft, Berenice Sotomayor MD PhD Mammogram abnormal (Primary Dx) 09/29/2024 Orders Only [facility] Rachael Moncada RN Endometrial cancer (HCC) (Primary Dx) 09/28/2024 Documentation [facility] [address] [place] [address] [facility] 13th [place] [address] [place] [phone] Liane Tovar RN 09/28/2024 Orders Only [facility] Mirian Lund, NADEGE 09/28/2024 3:30 PM CDT [facility] Gynecologic On[facility] ([facility]) [address] [place] [address] Endometrial cancer (HCC) (Primary Dx); Peritoneal carcinomatosis (HCC) 09/28/2024 2:30 PM CDT Office Visit [facility] [address] [place] [address] 13th [place] [address] [place] [phone] Quynh Mims MD Endometrial cancer (HCC) 09/27/2024 Orders Only [facility] Rachael Moncada RN 09/27/2024 Telephone [facility] [address] [facility] 8th Floor [address] Room [address] [place] [phone] Shalinit, Berenice Sotomayor MD PhD 09/12/2024 2:30 PM CDT - 09/12/2024 11:59 PM CDT Hospital Encounter [address] [address] Abscess of right breast Discharge Disposition: Discharge to home or self care 09/12/2024 Orders Only [facility] [address] [place] [address] Floor 8 [place] [phone] Berenice Lemos MD PhD Abscess of right breast (Primary Dx) 09/12/2024 1:00 PM CDT Office Visit [facility] [address] [place] [address] 8 [place] [phone] Berenice Lemos MD PhD Mammogram abnormal (Primary Dx) 09/07/2024 Orders Only [facility] Rachael Moncada, RN 09/07/2024 2:00 PM CDT [facility] Gynecologic Oncology [facility] ([facility]) [address] [place] [address] Peritoneal carcinomatosis (HCC) (Primary Dx); Endometrial cancer (HCC) 09/06/2024 Orders Only [facility] Rachael Moncada, RN 08/27/2024 Results Follow-Up [facility] [address] [facility] 12th [place] [address] [place] [address] Darius Lindo MD Surgical pathology 08/22/2024 9:46 AM CDT Anesthesia Event [facility] [address] [facility] [address] [place] [address] Gavin Jaimes MD Schappe, Elizabeth Mary, NETWORK APPLICATIONS SPECIALIST 08/22/2024 10:45 AM CDT - 08/22/2024 11:25 AM CDT Surgery [facility] [address] [facility] [address] [place] [address] Darius Lindo MD COLON REMOVAL SNARE 08/19/2024 1:01 PM CDT - 08/22/2024 2:44 PM CDT Hospital Encounter [facility] 1 [place] [phone] Quynh Mims MD Rectal bleeding (Primary Dx) Discharge Disposition: Discharge to home or self care 08/19/2024 Orders Only [facility] Caridad Casanova RN 08/19/2024 Telephone [facility] [address] [place] [address] [facility] th [place] [phone] Rachael Moncada RN 08/18/2024 Telephone [facility] [address] [place], [place] [address]th [place] [phone] Rachael Moncada RN 08/18/2024 Orders Only [facility] [address] [place] [address] [facility] [address] [place] [phone] Rachael Moncada RN Endometrial cancer (HCC) (Primary Dx); Dizzy; Rectal bleeding 08/17/2024 Orders Only OB ONCOLOGY Rachael Moncada RN 08/17/2024 Orders Only [facility] [address] [place], [place] [address]th [place] [phone] ProviderRosa MD 08/17/2024 1:00 PM CDT [facility] Gynecologic [facility] ([facility]) [address] [place] [address] Endometrial cancer (HCC) (Primary Dx); Peritoneal carcinomatosis (HCC) 08/16/2024 Orders Only [facility] Rachael Moncada RN 08/05/2024 Orders Only [facility] Rachael Moncada RN Endometrial cancer (HCC) (Primary Dx) 08/02/2024 Orders Only [facility] [address] [place] [address] [facility] 13th [place] [phone] Rachael Moncada RN Abnormal breast finding (Primary Dx); Abnormal mammogram of right breast; Abscess of right breast 08/02/2024 Orders Only [facility] [address] [facility] 13th [place] [address] [place] [address] ProviderRosa MD 08/01/2024 1:18 PM CDT - 08/01/2024 11:59 PM CDT Hospital Encounter [facility] [address] [facility] Floor 8 [place] [address] Abnormal mammogram Discharge Disposition: Discharge to home or self care 08/01/2024 1:18 PM CDT - 08/01/2024 11:59 PM CDT Hospital Encounter [facility] Floor 8 [place] [address] Endometrial cancer (HCC); Abnormal breast finding Discharge Disposition: Discharge to home or self care 07/28/2024 Telephone [facility] ([facility]) [address] [place] [address] Sepideh Hernandez RN 07/27/2024 Telephone [facility] ([facility]) [address] [place] [address] Enma Ortiz RN Appointment (Scheduling of breast biopsy) 07/27/2024 Telephone [facility] ([facility]) [address] [place] [address] Enma Ortiz RN Appointment (Scheduling of breast biopsy) 07/27/2024 Telephone [facility] ([facility]) [address] [place] [address] Enma Ortiz RN Appointment (Scheduling of breast biopsy) 07/27/2024 11:50 AM CDT - 07/27/2024 11:59 PM CDT Hospital Encounter [facility]iology [facility] ([facility]) [address] [place] [address] Abnormal mammogram Discharge Disposition: Discharge to home or self care 07/27/2024 Documentation [facility] [address] [facility] 13th [place] [address] Rachael Moncada RN 07/27/2024 Orders Only [facility] [address] [place] [address] 13th [place] [address] Rachael Moncada, RN Mass of temporal lobe (Primary Dx); Endometrial cancer (HCC) 07/27/2024 Orders Only OB ONCOLOGY Rachael Moncada, NADEGE 07/27/2024 11:30 AM CDT [facility] Gynecologic Oncology [facility] ([facility]) [address] [place] [address] Peritoneal carcinomatosis (HCC) (Primary Dx); Endometrial cancer (HCC); Encounter for preprocedural laboratory examination 07/27/2024 10:15 AM CDT Office Visit [facility] [address] [place] [address] 13th [place] [address] Quynh Mims MD Endometrial cancer (HCC) (Primary Dx); Encounter for preprocedural laboratory examination 07/25/2024 Orders Only [facility] Liane Cooper RN 07/22/2024 Results Follow-Up [facility] [address] [place] [address] 13th [place] [address] Rachael Moncada, RN MRI Brain W WO Contrast 07/21/2024 Telephone [facility] [address] [place] [address] 13th [place] [address] Rachael Moncada, RN 07/20/2024 7:42 AM CDT - 07/20/2024 11:59 PM CDT Hospital Encounter [facility] Radiology 1 [place] [address] Quynh Mims MD Endometrial cancer (HCC); Frequent falls; Balance problem Discharge Disposition: Discharge to home or self care from Last 3 Months Allergies Active Allergy [...] 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 Active acetaminophen (TYLENOL) 500 [...] on file 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 Gender Identity Not on file Sexual [...] Description 11/15/2024 7:30 AM CDT Hospital Encounter [facility] Operating [facility] ([facility]) [address] [place] [address] Aft, Berenice Sotomayor MD PhD [address] [place] [address] 11/15/2024 7:30 AM CDT - 11/15/2024 8:25 AM CDT Surgery [facility] Operating [facility] ([facility]) [address] [place] [address] Aft, Berenice Sotomayor MD PhD [address] [place] [address] INCISION AND DRAINAGE - BREAST Scheduled Procedures Name Priority Associated Diagnoses Date/Ti me INCISION AND DRAINAGE - BREAST Abscess of right breast 11/15/2024 7:30 AM CDT Medical Devices Implanted Type Area Compensation And Benefits Administrator Device Identifier Shelf Expiration Date Model / Serial / Lot [employer] Low Porfile Power Port 8fr 1.6mm 1 Lumen [id number] - [id number] Implanted:Qty: 1 on 05/06/2023 at [facility] [employer] 01/04/2028 [id number] / / [id number] Procedures Procedure Name Priority Date/Time Associated Diagnosis [...] POCT ORDERABLES - DEVICE Final Result [facility] [place] [address] * SCAN - LABS (09/28/2024 1:23 PM CDT) Mirian Lund RN Final Result * SCAN - LABS (09/27/2024 2:52 PM CDT) Rachael Moncada RN Final Result * (ABNORMAL) Aerobic and anaerobic culture and gram stain Abscess Breast, right (09/12/2024 5:58 PM CDT) Pathologist [facility] Direct Specimen Exam Stain: No polymorphonuclear leukocytes seen. No organisms seen. Report Final Report: Few Mixed aerobic and anaerobic microorganisms (.) [facility] Organism MIXED AEROBIC AND ANAEROBIC MICROORGANISMS [facility] Abscess (Breast, right) 09/12/2024 5:58 PM CDT 09/12/2024 6:36 PM CDT Narrative [facility] - 09/18/2024 1:28 PM CDT Specimen received on an ESwab. Testing performed by [facility] Microbiology Laboratory ([phone]) Specimens submitted from normally sterile body sites [...] GENERAL ORDERABLES Final Result Performing Organization Address [facility] Co de Phone Number [facility] Department [place] [address] * SCAN - LABS (09/07/2024 2:47 PM [...] - DEVICE Final Result Performing Organization Address [facility] de Phone Number [facility] [place] [address] * Surgical pathology (08/22/2024 10:07 AM CDT) Tissue (Polyp(s), colon/colorectal, esophageal, gastric) 08/22/2024 10:07 AM CDT Tissue specimen (specimen) (Polyp(s), colon/colorectal, esophageal, gastric) 08/22/2024 10:09 AM CDT Tissue specimen (specimen) (Polyp(s), colon/colorectal, esophageal, gastric) 08/22/2024 10:21 AM CDT Tissue specimen (specimen) (Polyp(s), colon/colorectal, esophageal, gastric) 08/22/2024 10:33 AM CDT Tissue specimen (specimen) (Polyp(s), colon/colorectal, esophageal, gastric) 08/22/2024 10:45 AM CDT Narrative PATHOLOGY [facility] - 08/23/2024 5:08 PM CDT EPIC results best viewed via link to PDF [facility] P[facility] [place] [address] Note to Patients: This report may contain [...] Gender: F : 1955 (Age: 69) Address: [address] [place], [place] [phone] Hospital #: [id number] Taken:08/22/2024 Received:08/22/2024 Reported: 08/23/2024 Patient Type: [facility] Inpatient Service: Gynecology Location: [place] [address] Physician(s): Prakash Monahan M.D. Diagnosis: A. Large bowel, cecal polyp, biopsy - Tubular adenoma. B. Large bowel, ascending colon polyp, biopsy - Tubular adenoma. C. Large bowel, ascending colon polyp, biopsy - Sessile serrated adenoma/lesion. D. Large bowel, descending colon polyp, biopsy - Tubular adenoma. E. Large bowel, rectal polyp, biopsy - Hyperplastic polyp. /08/23/2024 09:28 By this signature, I attest that [...] in greatest dimension. Labeled E1. Jar [facility]. [facility]08/22/2024 12:48 PA(s): Thu Gutierres By this signature, I attest that the above diagnosis is based upon my personal examination of the slides(and/or other material). Addenda/Procedures The performance characteristics of some immunohistochemical stains, fluorescence in-situ hybridization tests and immunophenotyping by flow cytometry cited in this report (if any) were determined by the Surgical Pathology and Flow Cytometry Departments at [facility] as part of an ongoing quality technician program and in compliance with federally [...] Pathology and Flow Cytometry Departments of [facility]. It has not been cleared or approved by the U. S. Food and Drug Administration. IMAGES AND SCANNED DOCUMENTS, IF INCLUDED, ONLY VIEWABLE IN PDF VERSION OF REPORT us Darius Lindo MD LAB PATHOLOGY ORDERABLES F inal Result PATHOLOGY [facility] 3rd Floor [place], [place] [phone] * Colonoscopy (08/22/2024 9:46 AM CDT) Anatomical Region Laterality Modality Other Narrative Procedure Note Darius Lindo MD - 08/22/2024 9:46 AM CDT [facility] ENDOS[facility] Patient Name: Rhonda Wiseman Procedure Date: 08/22/2024 9:46 AM Date of : 1955 Admit Type: Inpatient Age: 69 Gender: Female Attending MD: Darius Lindo M.D. Room: [facility] ENDOSCOPY ROOM 3 Note Status: Finalized Procedure: [...] scope was passed under direct vision.The CF [id number] endoscope was introduced through the anus and advanced to the cecum, identified by appendiceal orifice and ileocecal valve. The bowel preparation used was GoLYTELY via split dose instruction. The quality of the bowel preparationwas evaluated using the BBPS (Wolcott Bowel Preparation Scale) with scores of: Right [...] clip was successfully placed (MR conditional). Clip clamp operator: NOBLE PEAK VISION. There was no bleeding at the end [...] retrieved. Clip (MR conditional) was placed. Clip clamp operator: NOBLE PEAK VISION. - One 14 mm polyp in the [...] - DEVICE Final Result Performing Organization Address [facility] Co de Phone Number [facility] Department [place] [address] * POCT glucose (08/22/2024 7:46 AM CDT) Glucose, POC 82 70 - 199 mg/dL Blood 08/22/2024 7:46 AM CDT 08/22/2024 7:46 AM CDT us Quynh Mims MD LAB POCT ORDERABLES - DEVICE Final Result Performing Organization Address [facility] de Phone Number [facility] Department [place] [address] * Potassium, whole blood (08/22/2024 5:57 AM CDT) Potassium, bld 3.8 3.3 - 4.9 mmol/L Blood 08/22/2024 5:57 AM CDT 08/22/2024 6:13 AM CDT Narrative [facility] - 08/22/2024 6:13 AM CDT Whenever K Repletion finished us Quynh Mims MD LAB BLOOD ORDERABLES Final Result Performing Organization Address [facility] Co de Phone Number [facility] Department [place] [address] * eGFR (08/21/2024 9:04 PM CDT) eGFR [...] BLOOD ORDERABLES Final Result Performing Organization Address [facility] Co de Phone Number [facility] [place] [address] * (ABNORMAL) aPTT (08/21/2024 9:04 PM CDT) [...] BLOOD ORDERABLES Final Result Performing Organization Address [facility] de Phone Number [facility] [place] [address] * (ABNORMAL) Protime-INR (08/21/2024 9:04 PM CDT) [facility] PT 13.7(H) 9.7 - 13.0 sec INR 1.26(H) 0.90 - 1.20 [facility] Comment: Interpretive data Oral anticoagulant therapeutic ranges: Venous thromboembolism prophylaxis or treatment: 2.0-3.0 CARDIOLOGY Standard range: 2.0-3.0 High-intensity range: 2.5-3.5 Refer to indication-specific guidelines for appropriate target ranges for prosthetic heart valve replacement. Current interpretive data was last revised on 2019. Blood 08/21/2024 9:04 PM CDT 08/21/2024 10:09 PM CDT Quynh Mims MD LAB BLOOD ORDERABLES Final Result Performing Organization Address [facility] de Phone Number [facility] Department [place] [address] * (ABNORMAL) CBC without differential (08/21/2024 9:04 PM CDT) [facility] WBC 10.30(H) 3.80 - 9.90 K/cumm Hgb 8.8(L) 11.9 - 15.5 g/dL [facility] Hct 25.5(L) 35.6 - 45.5 % [facility] Plt 175 150 - 400 K/cumm [facility] MPV 11.6 9.1 - 12.3 fL [facility] RBC 2.91(L) 3.90 - 5.20 M/cumm [facility] MCV 87.6 81.3 - 96.4 fL [facility] MCH 30.2 27.1 - 33.3 pg [facility] MCHC 34.5 32.3 - 35.7 g/dL [facility] RDW CV 15.8(H) 11.1 - 14.9 % [facility] RDW SD 49.1(H) 35.7 - 48.1 fL [facility] NRBC abs 0.00 0.00 - 0.01 K/cumm [facility] Blood 08/21/2024 9:04 PM CDT 08/21/2024 9:57 PM CDT Darius Lindo MD LAB BLOOD ORDERABLES Final Result Performing Organization Address City/[facility]/ZIP Co de Phone Number [facility] [place] [address] * Phosphorus (08/21/2024 9:04 PM CDT) Pathologist [facility] Phosphorus, pl 2.6 2.3 - 4.5 mg/dL Blood 08/21/2024 9:04 PM CDT 08/21/2024 9:56 PM CDT Darius Lindo MD LAB BLOOD ORDERABLES Final Result Performing Organization Address [facility] Co de Phone Number [facility] [place] [address] * Magnesium (08/21/2024 9:04 PM CDT) Pathologist [facility] Magnesium 1.8 1.4 - 2.5 mg/dL Blood 08/21/2024 9:04 PM CDT 08/21/2024 9:56 PM CDT Quynh Mims MD LAB BLOOD ORDERABLES Final Result Performing Organization Address City/[facility] Co de Phone Number [facility] [place] [address] * (ABNORMAL) Basic metabolic panel (08/21/2024 9:04 PM CDT) Sodium 142 135 - 145 mmol/L Potassium, pl 3.4 3.3 - 4.9 mmol/L [facility] Chloride 108 97 - 110 mmol/L [facility] CO2 23 22 - 32 mmol/L [facility] Anion gap 11 2 - 15 mmol/L [facility] BUN 9 6 - 25 mg/dL [facility] Creatinine 0.95 0.60 - 1.10 mg/dL [facility] Glucose 74 70 - 199 mg/dL [facility] Comment: Interpretive Data Fasting glucose >/= [...] 2022. Calcium 8.2(L) 8.5 - 10.3 mg/dL [facility] Blood 08/21/2024 9:04 PM CDT 08/21/2024 9:56 PM CDT Darius Lindo MD LAB BLOOD ORDERABLES Final Result Performing Organization Address City/[facility] Co de Phone Number [facility] Department [place] [address] * POCT glucose (08/21/2024 8:44 PM CDT) Glucose, POC 96 70 - 199 mg/dL Blood 08/21/2024 8:44 PM CDT 08/21/2024 8:44 PM CDT Quynh Mims MD LAB POCT ORDERABLES - DEVICE Final Result Performing Organization Address City/[facility] Co de Phone Number [facility] [place] [address] * POCT glucose (08/21/2024 5:49 PM CDT) Glucose, POC 98 70 - 199 mg/dL Blood 08/21/2024 5:49 PM CDT 08/21/2024 5:49 PM CDT us Quynh Mims MD LAB POCT ORDERABLES - DEVICE Final Result Performing Organization Address [facility] Co de Phone Number [facility] [place] [address] * POCT glucose (08/21/2024 12:27 PM CDT) Glucose, POC 138 70 - 199 mg/dL Blood 08/21/2024 12:2 7 PM CDT 08/21/2024 12:27 PM CDT us Quynh Mims MD LAB POCT ORDERABLES - DEVICE Final Result Performing Organization Address [facility] de Phone Number [facility] [place] [address] * MRI Pelvis W WO Contrast (08/21/2024 [...] by: Kali Palomares M.D. Quynh Mims MD IM MRI PROCEDURES F inal Result * POCT glucose (08/21/2024 7:35 AM CDT) Glucose, POC 144 70 - 199 mg/dL Blood 08/21/2024 7:35 AM CDT 08/21/2024 7:35 AM CDT us Quynh Mims MD LAB POCT ORDERABLES - DEVICE Final Result [facility] [place] [address] * (ABNORMAL) CBC without differential (08/21/2024 6:43 AM CDT) [facility] WBC 9.46 3.80 - 9.90 K/cumm Hgb 8.3(L) 11.9 - 15.5 g/dL [facility] Hct 24.2(L) 35.6 - 45.5 % [facility] Plt 167 150 - 400 K/cumm [facility] MPV 11.4 9.1 - 12.3 fL [facility] RBC 2.78(L) 3.90 - 5.20 M/cumm [facility] MCV 87.1 81.3 - 96.4 fL [facility] MCH 29.9 27.1 - 33.3 pg [facility] MCHC 34.3 32.3 - 35.7 g/dL [facility] RDW CV 15.9(H) 11.1 - 14.9 % [facility] RDW SD 49.6(H) 35.7 - 48.1 fL [facility] NRBC abs 0.00 0.00 - 0.01 K/cumm [facility] Blood 08/21/2024 6:43 AM CDT 08/21/2024 7:12 AM CDT Quynh Mims MD LAB BLOOD ORDERABLES Final Result Performing Organization Address [facility]/ZIP Co de Phone Number [facility] [place] [address] * Transfuse RBC (08/21/2024 2:13 AM CDT) Blood Quynh Mims MD BLOOD TRANSFUSION OR DERABLES Final Result Performing Organization Address [facility]/ZIP Co de Phone Number [facility] [place] [address] * Prepare RBC: 1 Units (08/20/2024 11:19 PM CDT) Product code [id number] Unit Number [id number] [facility] Product Blood Type APOS [facility] Dispense Status PRESUMED TRANSFUSED [facility] Blood 08/20/2024 11:1 9 PM CDT 08/20/2024 11:19 PM CDT Narrative [facility] - 08/21/2024 4:01 PM CDT Are special requirements needed? (All products are leukoreduced and CMV- safe)- >No Date required:-20240820 LRRBC # of [id number] Reasons:-Hgb <7 g/dL} us Quynh Mims MD BLOOD BANK PRODUCT O RDERABLES Final Result [facility] [place] [address] * (ABNORMAL) eGFR (08/20/2024 8:55 PM CDT) [...] BLOOD ORDERABLES Final Result Performing Organization Address [facility] Co de Phone Number [facility] Department [place] [address] * (ABNORMAL) CBC without differential (08/20/2024 8:55 PM CDT) Pathologist [facility] WBC 9.85 3.80 - 9.90 K/cumm Hgb 6.9(L) 11.9 - 15.5 g/dL [facility] Hct 20.1(L) 35.6 - 45.5 % [facility] Plt 164 150 - 400 K/cumm [facility] MPV 11.4 9.1 - 12.3 fL [facility] RBC 2.31(L) 3.90 - 5.20 M/cumm [facility] MCV 87.0 81.3 - 96.4 fL [facility] MCH 29.9 27.1 - 33.3 pg [facility] MCHC 34.3 32.3 - 35.7 g/dL [facility] RDW CV 16.8(H) 11.1 - 14.9 % [facility] RDW SD 51.7(H) 35.7 - 48.1 fL [facility] NRBC abs 0.02(H) 0.00 - 0.01 K/cumm [facility] Blood 08/20/2024 8:55 PM CDT 08/20/2024 9:49 PM CDT Darius Lindo MD LAB BLOOD ORDERABLES Final Result Performing Organization Address [facility]/ZIP Co de Phone Number [facility] [place] [address] * Phosphorus (08/20/2024 8:55 PM CDT) Pathologist [facility] Phosphorus, pl 3.0 2.3 - 4.5 mg/dL Blood 08/20/2024 8:55 PM CDT 08/20/2024 9:48 PM CDT Darius Lindo MD LAB BLOOD ORDERABLES Final Result Performing Organization Address City/[facility] Co de Phone Number [facility] [place] [address] * Magnesium (08/20/2024 8:55 PM CDT) Pathologist [facility] Magnesium 1.9 1.4 - 2.5 mg/dL Blood 08/20/2024 8:55 PM CDT 08/20/2024 9:48 PM CDT Quynh Mims MD LAB BLOOD ORDERABLES Final Result Performing Organization Address [facility] de Phone Number [facility] [place] [address] * (ABNORMAL) Basic metabolic panel (08/20/2024 8:55 PM CDT) Pathologist [facility] Sodium 140 135 - 145 mmol/L Potassium, pl 3.8 3.3 - 4.9 mmol/L [facility] Chloride 111(H) 97 - 110 mmol/L [facility] CO2 22 22 - 32 mmol/L [facility] Anion gap 7 2 - 15 mmol/L [facility] BUN 17 6 - 25 mg/dL [facility] Creatinine 1.09 0.60 - 1.10 mg/dL [facility] Glucose 210(H) 70 - 199 mg/dL [facility] Comment: Interpretive Data Fasting glucose >/= [...] 2022. Calcium 7.8(L) 8.5 - 10.3 mg/dL [facility] Blood 08/20/2024 8:55 PM CDT 08/20/2024 9:48 PM CDT Darius Lindo MD LAB BLOOD ORDERABLES Final Result Performing Organization Address City/[facility] Co de Phone Number [facility] [place] [employer] [place] [address] * (ABNORMAL) POCT glucose (08/20/2024 8:54 PM CDT) Glucose, POC 258(H) 70 - 199 mg/dL Blood 08/20/2024 8:54 PM CDT 08/20/2024 8:54 PM CDT Quynh Mims MD LAB POCT ORDERABLES - DEVICE Final Result Performing Organization Address [facility] Co de Phone Number [facility] [place] [address] * (ABNORMAL) POCT glucose (08/20/2024 4:48 PM CDT) Glucose, POC 210(H) 70 - 199 mg/dL Blood 08/20/2024 4:48 PM CDT 08/20/2024 4:48 PM CDT Quynh Mims MD LAB POCT ORDERABLES - DEVICE Final Result Performing Organization Address City/[facility] Co de Phone Number [facility] [place] [address] * POCT glucose (08/20/2024 12:24 PM CDT) Glucose, POC 105 70 - 199 mg/dL Blood 08/20/2024 12:2 4 PM CDT 08/20/2024 12:24 PM CDT Quynh Mims MD LAB POCT ORDERABLES - DEVICE Final Result Performing Organization Address [facility] de Phone Number [facility] [place] [place] [place] [address] * (ABNORMAL) CBC without differential (08/20/2024 5:15 AM CDT) [facility] WBC 14.24(H) 3.80 - 9.90 K/cumm Hgb 7.5(L) 11.9 - 15.5 g/dL [facility] Hct 22.3(L) 35.6 - 45.5 % [facility] Plt 170 150 - 400 K/cumm [facility] MPV 11.3 9.1 - 12.3 fL [facility] RBC 2.53(L) 3.90 - 5.20 M/cumm [facility] MCV 88.1 81.3 - 96.4 fL [facility] MCH 29.6 27.1 - 33.3 pg [facility] MCHC 33.6 32.3 - 35.7 g/dL [facility] RDW CV 16.1(H) 11.1 - 14.9 % [facility] RDW SD 50.4(H) 35.7 - 48.1 fL [facility] NRBC abs 0.03(H) 0.00 - 0.01 K/cumm [facility] Blood 08/20/2024 5:15 AM CDT 08/20/2024 6:10 AM CDT us Quynh Mims MD LAB BLOOD ORDERABLES Final Result Performing Organization Address [facility]/ZIP Co de Phone Number [facility] [place] [employer] [place] [address] * (ABNORMAL) Hemoglobin A1c (08/20/2024 5:15 AM CDT) Pathologist [facility] Hgb A1C 7.0(H) 4.0 - 5.6 % Estimated Average Glucose 154 mg/dL [facility] Comment: The ADA recommends reporting [...] BLOOD ORDERABLES Final Result Performing Organization Address City/[facility] Co de Phone Number [facility] [place] [address] * POCT glucose (08/20/2024 5:14 AM CDT) [facility] Glucose, POC 78 70 - 199 mg/dL Blood 08/20/2024 5:14 AM CDT 08/20/2024 5:14 AM CDT Quynh Mims MD LAB POCT ORDERABLES - DEVICE Final Result [facility] [place] [address] * eGFR (08/19/2024 11:58 PM CDT) [facility] eGFR 60 >=60 mL/min/1. 73 m2 Comment: [...] Mims MD LAB BLOOD ORDERABLES Final Result [facility] [place] [address] * (ABNORMAL) CBC without differential (08/19/2024 11:58 PM CDT) WBC 13.63(H) 3.80 - 9.90 K/cumm Hgb 7.1(L) 11.9 - 15.5 g/dL [facility] Hct 21.3(L) 35.6 - 45.5 % [facility] Plt 166 150 - 400 K/cumm [facility] MPV 11.4 9.1 - 12.3 fL [facility] RBC 2.42(L) 3.90 - 5.20 M/cumm [facility] MCV 88.0 81.3 - 96.4 fL [facility] MCH 29.3 27.1 - 33.3 pg [facility] MCHC 33.3 32.3 - 35.7 g/dL [facility] RDW CV 15.9(H) 11.1 - 14.9 % [facility] RDW SD 50.1(H) 35.7 - 48.1 fL [facility] NRBC abs 0.02(H) 0.00 - 0.01 K/cumm [facility] Blood 08/19/2024 11:5 8 PM CDT 08/20/2024 12:26 AM CDT Darius Lindo MD LAB BLOOD ORDERABLES Final Result Performing Organization Address [facility] de Phone Number [facility] [place] [address] * Phosphorus (08/19/2024 11:58 PM CDT) Phosphorus, pl 3.1 2.3 - 4.5 mg/dL Blood 08/19/2024 11:5 8 PM CDT 08/20/2024 12:17 AM CDT Darius Lindo MD LAB BLOOD ORDERABLES Final Result Performing Organization Address [facility] de Phone Number [facility] [place] [place] [address] * Magnesium (08/19/2024 11:58 PM CDT) Magnesium 2.0 1.4 - 2.5 mg/dL Blood 08/19/2024 11:5 8 PM CDT 08/20/2024 12:17 AM CDT Quynh Mims MD LAB BLOOD ORDERABLES Final Result Performing Organization Address [facility] Phone Number [facility] [place] [address] * (ABNORMAL) Lipid panel (08/19/2024 11:58 PM [...] revised on 2017. Triglycerides 99 <=149 mg/dL [facility] Comment: Interpretive Data Ages < [...] on 2017. HDL 30(L) >=40 mg/dL [facility] Comment: Interpretive Data Ages < [...] on 2017. LDL, calculated 42 <=129 mg/dL [facility] Comment: Interpretive Data Ages < [...] 3. Mike M et al. CAMILA Cardiol. 2019September 08;5(5):540-548. doi: [email or web address] Current Interpretive Data was last revised on 2023. Non-HDL Cholesterol 61 mg/dL [facility] Comment: Interpretive Data Ages < [...] last revised on 2017. Chol/HDL ratio 3 [facility] Blood 08/19/2024 11:5 8 PM CDT 08/20/2024 12:26 AM CDT Narrative [facility] - 08/20/2024 8:24 AM CDT reflex us Quynh Mims MD LAB BLOOD ORDERABLES Final Result [facility] Department [place] [address] * (ABNORMAL) Basic metabolic panel (08/19/2024 11:58 PM CDT) Sodium 143 135 - 145 mmol/L Potassium, pl 3.3 3.3 - 4.9 mmol/L [facility] Chloride 112(H) 97 - 110 mmol/L [facility] CO2 23 22 - 32 mmol/L [facility] Anion gap 8 2 - 15 mmol/L [facility] BUN 21 6 - 25 mg/dL [facility] Creatinine 1.03 0.60 - 1.10 mg/dL [facility] Glucose 82 70 - 199 mg/dL [facility] Comment: Interpretive Data Fasting glucose >/= [...] 2022. Calcium 8.1(L) 8.5 - 10.3 mg/dL [facility] Blood 08/19/2024 11:5 8 PM CDT 08/20/2024 12:17 AM CDT us Quynh Mims MD LAB BLOOD ORDERABLES Final Result Performing Organization Address [facility] Co de Phone Number [facility] [place] [address] * POCT glucose (08/19/2024 11:57 PM CDT) [facility] Signature Glucose, POC 87 70 - 199 mg/dL Blood 08/19/2024 11:5 7 PM CDT 08/19/2024 11:57 PM CDT Result Rene Mims MD LAB POCT ORDERABLES - DEVICE Final Result Performing Organization Address City/[facility] Co de Phone Number [facility] [place] [address] * Transfuse RBC (08/19/2024 10:44 PM CDT) Blood Result Rene Mims MD BLOOD TRANSFUSION OR DERABLES Final Result Performing Organization Address [facility] Co de Phone Number [facility] [place] [address] * POCT glucose (08/19/2024 8:26 PM CDT) Glucose, POC 153 70 - 199 mg/dL Blood 08/19/2024 8:26 PM CDT 08/19/2024 8:26 PM CDT us Quynh Mims MD LAB POCT ORDERABLES - DEVICE Final Result Performing Organization Address [facility] de Phone Number [facility] [address] * Transfuse RBC (08/19/2024 6:55 PM CDT) Blood us Quynh Mims MD BLOOD TRANSFUSION OR DERABLES Final Result Performing Organization Address [facility] Phone Number [facility] [address] * POCT glucose (08/19/2024 4:51 PM CDT) Glucose, POC 127 70 - 199 mg/dL Blood 08/19/2024 4:51 PM CDT 08/19/2024 4:51 PM CDT us Quynh Mims MD LAB POCT ORDERABLES - DEVICE Final Result Performing Organization Address [facility] de Phone Number [facility] [place] [employer] [place] [address] * CT Abdomen Pelvis W WO Contrast [...] Units (08/19/2024 2:37 PM CDT) Product code [id number] Unit Number [id number] [employer] Product Blood Type APOS [employer] Dispense Status PRESUMED TRANSFUSED [employer] Product code [id number] [employer] Unit Number [id number] [employer] Product Blood Type APOS [employer] Dispense Status PRESUMED TRANSFUSED [employer] Blood 08/19/2024 2:37 PM CDT 08/19/2024 2:37 PM CDT Narrative [facility] - 08/20/2024 8:03 AM CDT Are special requirements needed? (All products are leukoreduced and CMV- safe)- >No Date required:-[id number] LRRBC # of [id number] Reasons:-Hgb <7 g/dL} Quynh Mims MD BLOOD BANK PRODUCT O RDERABLES Final Result Performing Organization Address [facility] Co de Phone Number [facility] [place] [address] * (ABNORMAL) eGFR (08/19/2024 1:54 PM CDT) [facility] eGFR 57(L) >=60 mL/min/1. 73 m2 Comment: [...] 1:54 PM CDT 08/19/2024 2:28 PM CDT Quynh Mims MD LAB BLOOD ORDERABLES Final Result Performing Organization Address [facility] Co de Phone Number [facility] [place] [address] * (ABNORMAL) Differential, auto (08/19/2024 1:54 PM CDT) Neutrophil abs 8.26(H) 1.50 - 6.50 K/cumm Imm gran abs 0.12(H) 0.00 - 0.10 K/cumm [facility] Lymphocyte abs 2.15 0.80 - 3.30 K/cumm [facility] Monocyte abs 0.82(H) 0.20 - 0.80 K/cumm [facility] Eosinophil abs 0.11 0.00 - 0.50 K/cumm [facility] Basophil abs 0.02 0.00 - 0.10 K/cumm [facility] Neutrophil pct 72.0 % [facility] Comment: Interpretive Data Percent cell count reference ranges are not reported, since discordance with absolute values may lead to misinterpretation of CBC data. Current Interpretive Data was last revised on 2017. Imm gran pct 1.0 % [facility] Comment: Interpretive Data Percent cell count reference ranges are not reported, since discordance with absolute values may lead to misinterpretation of CBC data. Current Interpretive Data was last revised on 2017. Lymphocyte pct 18.7 % [facility] Comment: Interpretive Data Percent cell count reference ranges are not reported, since discordance with absolute values may lead to misinterpretation of CBC data. Current Interpretive Data was last revised on 2017. Monocyte pct 7.1 % [facility] Comment: Interpretive Data Percent cell count reference ranges are not reported, since discordance with absolute values may lead to misinterpretation of CBC data. Current Interpretive Data was last revised on 2017. Eosinophil pct 1.0 % [facility] Comment: Interpretive Data Percent cell count reference ranges are not reported, since discordance with absolute values may lead to misinterpretation of CBC data. Current Interpretive Data was last revised on 2017. Basophil pct 0.2 % [facility] Comment: Interpretive Data Percent cell count reference ranges are not reported, since discordance with absolute values may lead to misinterpretation of CBC data. Current Interpretive Data was last revised on 2017. Blood 08/19/2024 1:54 PM CDT 08/19/2024 2:17 PM CDT Quynh Mims MD LAB BLOOD ORDERABLES Final Result [facility] [place] [address] * (ABNORMAL) CBC with auto differential (08/19/2024 1:54 PM CDT) [facility] WBC 11.48(H) 3.80 - 9.90 K/cumm Hgb 4.6(C) 11.9 - 15.5 g/dL [facility] Comment:This result has been called to MONTSERRAT DE LEÓN RN by [email or web address] on 08/19/2024 14:32:32, and has been read back. Hct 14.2(L) 35.6 - 45.5 % [facility] Plt 166 150 - 400 K/cumm [facility] MPV 11.5 9.1 - 12.3 fL [facility] RBC 1.54(L) 3.90 - 5.20 M/cumm [facility] MCV 92.2 81.3 - 96.4 fL [facility] MCH 29.9 27.1 - 33.3 pg [facility] MCHC 32.4 32.3 - 35.7 g/dL [facility] RDW CV 16.6(H) 11.1 - 14.9 % [facility] RDW SD 54.9(H) 35.7 - 48.1 fL [facility] NRBC abs 0.00 0.00 - 0.01 K/cumm [facility] Blood 08/19/2024 1:54 PM CDT 08/19/2024 2:17 PM CDT Quynh Mims MD LAB BLOOD ORDERABLES Final Result Performing Organization Address City/[facility]/ZIP Co de Phone Number [facility] [place] [address] * (ABNORMAL) aPTT (08/19/2024 1:54 PM CDT) [...] BLOOD ORDERABLES Final Result Performing Organization Address City/[facility]/ZIP Co de Phone Number [facility] [place] [address] * (ABNORMAL) Protime-INR (08/19/2024 1:54 PM CDT) Pathologist [facility] PT 13.9(H) 9.7 - 13.0 sec INR 1.28(H) 0.90 - 1.20 [facility] Comment: Interpretive data Oral anticoagulant therapeutic ranges: Venous thromboembolism prophylaxis or treatment: 2.0-3.0 CARDIOLOGY Standard range: 2.0-3.0 High-intensity range: 2.5-3.5 Refer to indication-specific guidelines for appropriate target ranges for prosthetic heart valve replacement. Current interpretive data was last revised on 2019. Blood 08/19/2024 1:54 PM CDT 08/19/2024 2:21 PM CDT Quynh Mims MD LAB BLOOD ORDERABLES Final Result [facility] [place] [address] * Type and screen (08/19/2024 1:54 PM CDT) ABO Rh A Positive Ramon, indirect Negative [facility] Blood 08/19/2024 1:54 PM CDT 08/19/2024 2:26 PM CDT Narrative [facility] - 08/19/2024 3:17 PM CDT Has the patient had Daratumumab or Isatuximab in the past 6 months?->Unknown Quynh Mims MD LAB BLOOD BANK TEST ORDERABLES Final Result Performing Organization Address [facility] Co de Phone Number [facility] [place] [address] * Phosphorus (08/19/2024 1:54 PM CDT) [facility] Phosphorus, pl 3.3 2.3 - 4.5 mg/dL Blood 08/19/2024 1:54 PM CDT 08/19/2024 2:14 PM CDT Darius Lindo MD LAB BLOOD ORDERABLES Final Result Performing Organization Address [facility] Co de Phone Number [facility] [place] [address] * Magnesium (08/19/2024 1:54 PM CDT) [facility] Magnesium 2.1 1.4 - 2.5 mg/dL Blood 08/19/2024 1:54 PM CDT 08/19/2024 2:14 PM CDT Quynh Mims MD LAB BLOOD ORDERABLES Final Result Performing Organization Address City/[facility] [place] [address] * (ABNORMAL) Comprehensive metabolic panel (08/19/2024 1:54 PM CDT) [facility] Sodium 143 135 - 145 mmol/L Potassium, pl 3.7 3.3 - 4.9 mmol/L [facility] Chloride 112(H) 97 - 110 mmol/L [facility] CO2 21(L) 22 - 32 mmol/L [facility] Anion gap 10 2 - 15 mmol/L [facility] BUN 25 6 - 25 mg/dL [facility] Creatinine 1.07 0.60 - 1.10 mg/dL [facility] Glucose 189 70 - 199 mg/dL [facility] Comment: Interpretive Data Fasting glucose >/= [...] 2022. Calcium 8.0(L) 8.5 - 10.3 mg/dL [facility] Bilirubin, total <0.2 0.1 - 1.2 mg/dL [facility] Protein, pl 5.7(L) 6.5 - 8.5 g/dL [facility] Albumin 3.5 3.5 - 5.0 g/dL [facility] Alk phos 52 40 - 130 Units/L [facility] ALT 15 7 - 45 Units/L [facility] AST 17 10 - 45 Units/L [facility] Blood 08/19/2024 1:54 PM CDT 08/19/2024 2:14 PM CDT us Quynh Mims MD LAB BLOOD ORDERABLES Final Result [facility] [place] [address] * SCAN - LABS (08/19/2024 12:04 PM [...] MISC-ORDER (08/02/2024 9:07 AM CDT) Result [facility] Historical Provider LAB BLOOD ORDERABLES [...] RIGHT breast was performed by a trained sack cleaner and by Dr. Hampton . BREAST PARENCHYMAL [...] RIGHT breast was performed by a trained sack cleaner and by Dr. Hampton . BREAST PARENCHYMAL [...] RIGHT breast was performed by a trained sack cleaner and by Dr. Hampton . BREAST PARENCHYMAL [...] RIGHT breast was performed by a trained sack cleaner and by Dr. Hampton . BREAST PARENCHYMAL [...] images may or may not represent the north fork source data set and thus may contain [...] images may or may not represent the north fork source data set and thus may contain [...] sec INR 1.26(H) 0.90 - 1.20 [facility] Comment: Interpretive data Oral anticoagulant [...] BLOOD ORDERABLES Final Result [facility] [place] [address] * SCAN - LABS (07/27/2024 9:02 AM [...] (Axial Sectra reconstruction images, image 102; Series 74859, image 19; Series 49539, image 71). Mild degree of scattered foci [...] (Axial Sectra reconstruction images, image 102; Series 25542, image 19; Series 13458, image 71). Mild degree of scattered foci [...] inal Result from Last 3 Months Insurance [facility] MEDICARE [place] MEDICARE [place] Advance Directives For more information, please contact: [phone] * Full Code (Latest Code Status on File) Date Activated Date Inactivated Comments 08/19/2024 1:31 PM 08/22/2024 6:55 PM * Full Code Date Activated Date Inactivated Comments 10/23/2023 7:57 AM 10/23/2023 1:38 PM Care Teams Thread Winder Relationship Specialty Start Date End Date Andrea Chandler MD PCP - General Internal Medicine 03/31/23
--- OUTSIDE RECORDS SUMMARY | 2024-10-17 08:09 | XMS_ITS | Clinical Summary ---
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 Gender Identity Not on file Sexual Orientation [...] 2:53 PM CDT Height 160 cm (5' 3) 01/26/2020 2:53 PM CDT Body Mass Index 34.1 01/26/2020 2:53 PM CDT Plan of Treatment Health Maintenance Due Date Last Done Comments Hepatitis C Virus (HCV) Screening 1955 TdaP Immunization 1955 Cologuard 2007 Immunochemical Fecal Occult Blood 2007 Pneumococcal Immunization (5 0+ years) (1 of 1 - PCV) 2007 Zoster Immunization (1 of 2) 2007 SARS-COV-2 Immunization (2023- season) 2024 04/26/2021, 08/14/2020, 07/17/2020 Influenza Immunization (Seas on Ended) 2025 01/31/2019, 03/08/2018 Colonoscopy 09/13/2028 09/13/2018, 08/26/2018 Colorectal Cancer Screening 09/13/2028 Respiratory Syncytial Virus (RSV) Immunization (Adult) (1 - 1-dose 75+ series) 02/13/2032 Lung Cancer Screening Discontinued 04/13/2019 , 10/09/2018 Hepatitis B Immunization Aged Out No longer eligible based on patient's age to complete this topic Human Papillomavirus (HPV) Immunization Aged Out No longer eligible based on patient's age to complete this topic Meningococcal Immunization (ACWY) Aged Out No longer eligible based on patient's age to complete this topic Rotavirus Immunization Aged Out No lo nger eligible based on patient's age to complete this topic Procedures Procedure Name Priority Date/Time Associated Diagnosis Comments CT CHEST W/O CONTRAST Routine 04/13/2019 9:22 AM COVERED BUCKLE ASSEMBLER Lung nodule < 6cm on CT from Last 3 Months or Most Recently Relevant to Health Maintenance Results * CT CHEST W/O CONTRAST (04/13/2019 9:22 AM COVERED BUCKLE ASSEMBLER) Anatomical Region Laterality Modality Chest N/A Computed Tomogra phy 04/13/2019 9:40 AM COVERED BUCKLE ASSEMBLER Impressions 04/13/2019 9:43 AM COVERED BUCKLE ASSEMBLER IMPRESSION: 1. A 5 mm ground-glass nodule [...] as described above. Narrative 04/13/2019 9:43 AM COVERED BUCKLE ASSEMBLER EXAM DESCRIPTION: CT CHEST W/O CONTRAST REASON [...] Rojelio Yun M.D. RL: DEVIN Report ID: [id number] Reading Location: [id number] Procedure Note Rojelio Yun MD - 04/13/2019 [...] Rojelio Yun M.D. RL: DEVIN Report ID: [id number] Reading Location: [id number] IMPRESSION: 1. A 5 mm ground-glass nodule [...] Insurance MED[place] [id number] Care Teams Legal Recruiter Relationship Specialty Start Date End Date Emery Higgins DO [address] [place] [address] PCP - General Internal Medicine 07/13/18
--- OUTSIDE RECORDS SUMMARY | 2024-10-17 08:09 | XMS_ITS ---
Author Organization [facility] [address] Address [address] [place] [address] Care Team Providers Care Hide Shaker Name Role Phone Andrea Chandler MD Primary Care Provider [phone] Active Problems Problem Noted Date Diagnosed Date [...] medications scheduled. Pembrolizumab 21 Day Cycles - EKG/ECG TECHNICIAN (Carbo Completed)* Plan Start Date:04/30/2023 Plan Provider:Quynh Mims MD Linked Problems Endometrial cancer (HCC) Treatment Medications Current Day (Day 1 , Cycle 25 - Planned for 10/19/2024) Next Day (Day 1, Cycle 26 - Planned for 11/09/2024) CARBOplatin (PARAPLATIN) IVP B in 250 mL [...]
--- OUTSIDE RECORDS SUMMARY | 2024-10-17 08:09 | XMS_ITS | Encounter Summary ---
Author Organization [facility] Address [address] [place] [address] Phone Care Team Providers Care Shed Boss Name Role Phone Andrea Chandler MD Primary Care Provider [phone] Encounter Details Date Type Department Care Team (Late st Contact Info) Description 08/27/2024 Results Follow-Up [facility] Gastroenterology [address] 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 Operating Room [facility] [address] [place] [id number] [address], Berenice Sotomayor MD PhD [address] [place] [address] 11/15/2024 7:30 AM CDT - 11/15/2024 8:25 AM CDT Surgery [facility] Operating Room [facility] [address] [place] [address] Aft, Berenice Sotomayor MD PhD [address] [place] [address] INCISION AND DRAINAGE - BREAST Scheduled Procedures Name Priority Associated Diagnoses Date/Ti me INCISION AND DRAINAGE - BREAST Abscess of right breast 11/15/2024 7:30 AM CDT documented as of this encounter Visit Diagnoses Not on filedocumented in this encounter Care Teams Shed Boss Relationship Specialty Start Date End Date Andrea Chandler MD PCP - General Internal Medicine 03/31/23 documented as of this encounter
[2024-10-17 08:22] LABS: Basophils Absolute Auto 0.08 K/mm3 (0.00-0.10); Basophils Percent Auto 0.8 % (0.0-1.0); Eosinophils Absolute Auto 0.53 K/mm3 (0.02-0.50); Eosinophils Percent Auto 5.2 % (1.0-6.0); Hematocrit 30.3 % (35.0-42.0); Hemoglobin 8.9 g/dL (11.7-13.8); Immature Granulocyte Absolute 0.06 K/mm3 (0.00-0.00); Immature Granulocyte Percent A 0.6 % (0.0-0.0); Lymphocytes Absolute Auto 2.36 K/mm3 (1.10-4.50); Lymphocytes Percent Auto 22.9 % (18.0-42.0); Mean Corpuscular HGB Conc 29.4 g/dL (32-36); Mean Corpuscular Hemoglobin 24.1 pg (27.0-31.0); Mean Corpuscular Volume 81.9 fL (78.0-102.0); Mean Platelet Volume 12.1 fl (9.2-11.8); Monocytes Absolute Auto 0.92 K/mm3 (0.10-0.90); Monocytes Percent Auto 8.9 % (2.0-11.0); Neutrophils Absolute Auto 6.34 K/mm3 (1.70-7.20); Neutrophils Percent Auto 61.6 % (50.0-70.0); Platelet Count Result 217 K/mm3 (150-420); Red Cell Distribution Width 15.7 % (11.6-14.4); White Blood Count 10.3 K/mm3 (4.8-10.8)
[2024-10-17 09:20] LABS: Alanine Aminotransferase 15 U/L (6-35); Albumin Level 3.9 g/dL (3.5-5.1); Alkaline Phosphatase 66 U/L (38-126); Anion Gap 7 mmol/L (4-12); Aspartate Amino Transferase 24 U/L (14-36); Bilirubin,Total 0.4 mg/dL (0.2-1.3); Blood Urea Nitrogen 21 mg/dL (7-17); Calcium 8.7 mg/dL (8.4-10.2); Carbon Dioxide 22 mmol/L (22-30); Chloride 109 mmol/L (98-107); Estimated Glomerular Filt Rate > 60; Glucose 137 mg/dL (65-110); Osmolality Calculated 291 mOsm/kg (285-295); Potassium 3.9 mmol/L (3.4-5.0); Sodium 138 mmol/L (137-145); Total Protein 6.3 g/dL (6.3-8.2)
[2024-10-17 15:52] LABS: Free T4 Free Thyroxine 1.61 ng/dL (0.78-2.19)
[2024-10-19 06:33] LABS: CA-125 100 U/mL (<35)
[2024-10-19 10:08] LABS: Thyroid Peroxidase Antibodies 48 IU/mL (<9)
== END 2024-10-17 08:01 | disposition home or self-care (01) ==
LOC: CHSLAB 08:04
PROVIDERS: PCP Internal Medicine
DX: C54.1 Malignant neoplasm of endometrium (principal); E11.9 Type 2 diabetes mellitus without complications
CPT/HCPCS: 36415; 80053; 83735; 84439; 84443; 85025; 86304; 86376

== ENCOUNTER 2024-11-07 09:15 | Outpatient (CLI) | payer MEDICARE, SELFPAY ==
[2024-11-07 09:45] LABS: Basophils Absolute Auto 0.09 K/mm3 (0.00-0.10); Basophils Percent Auto 0.9 % (0.0-1.0); Eosinophils Absolute Auto 0.62 K/mm3 (0.02-0.50); Hematocrit 30.2 % (35.0-42.0); Hemoglobin 8.8 g/dL (11.7-13.8); Immature Granulocyte Absolute 0.07 K/mm3 (0.00-0.00); Immature Granulocyte Percent A 0.7 % (0.0-0.0); Lymphocytes Absolute Auto 2.36 K/mm3 (1.10-4.50); Lymphocytes Percent Auto 22.8 % (18.0-42.0); Mean Corpuscular HGB Conc 29.1 g/dL (32-36); Mean Corpuscular Hemoglobin 22.7 pg (27.0-31.0); Mean Platelet Volume 11.1 fl (9.2-11.8); Monocytes Absolute Auto 0.81 K/mm3 (0.10-0.90); Monocytes Percent Auto 7.8 % (2.0-11.0); Neutrophils Percent Auto 61.8 % (50.0-70.0); Platelet Count Result 232 K/mm3 (150-420); Red Blood Count 3.87 M/mm3 (4.20-5.40); Red Cell Distribution Width 17.1 % (11.6-14.4); White Blood Count 10.4 K/mm3 (4.8-10.8)
[2024-11-07 10:04] LABS: Alanine Aminotransferase 15 U/L (6-35); Albumin Level 3.8 g/dL (3.5-5.1); Alkaline Phosphatase 72 U/L (38-126); Anion Gap 6 mmol/L (4-12); Aspartate Amino Transferase 21 U/L (14-36); Bilirubin,Total 0.4 mg/dL (0.2-1.3); Blood Urea Nitrogen 21 mg/dL (7-17); Carbon Dioxide 23 mmol/L (22-30); Chloride 111 mmol/L (98-107); Estimated Glomerular Filt Rate > 60; Glucose 143 mg/dL (65-110); Magnesium 1.9 mg/dL (1.6-2.3); Osmolality Calculated 295 mOsm/kg (285-295); Potassium 4.1 mmol/L (3.4-5.0); Sodium 140 mmol/L (137-145); Total Protein 6.2 g/dL (6.3-8.2)
[2024-11-08 19:38] LABS: CA-125. 94 U/mL (<35)
== END 2024-11-07 09:16 | disposition home or self-care (01) ==
LOC: CHSLAB 09:19
PROVIDERS: PCP Internal Medicine
DX: C54.1 Malignant neoplasm of endometrium (principal); E11.9 Type 2 diabetes mellitus without complications
CPT/HCPCS: 36415; 80053; 83735; 84443; 85025; 86304

== ENCOUNTER 2024-11-28 10:04 | Outpatient (CLI) | payer MEDICARE, SELFPAY ==
--- OUTSIDE RECORDS SUMMARY | 2024-11-28 10:16 | XMS_ITS | Clinical Summary ---
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
--- OUTSIDE RECORDS SUMMARY | 2024-11-28 10:16 | XMS_ITS | Encounter Summary ---
Author Organization 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
--- OUTSIDE RECORDS SUMMARY | 2024-11-28 10:17 | XMS_ITS | Clinical Summary ---
Author Organization [facility] [address] Address [address] [place] [address] Care Team Providers Care Hr Specialist Name Role Phone Andrea Chandler MD Primary Care Provider [phone] Allergies Active Allergy Reactions Criticality Noted Date Comments Paclitaxel Shortness of breath,Other (See comments),Flushing (skin) High 05/12/2023 Patient reports feeling hot and thought she was going to pass out, tightness in head Medications verapamil SR (CALAN SR) 240 mg CR tabletIndication s:hypertension Take 1 tablet (240 mg total) by mouth every morning 023 Active montelukast (SINGULAIR) 10 mg tabletIndication s:Seasonal Allergic Rhinitis Take 1 tablet (10 mg total) by mouth every evening 023 Active atorvastatin (LIPITOR) 10 mg tabletIndication s:hyperlipidemia Take 1 tablet (10 mg total) by mouth nightly Active fexofenadine (Cherelle Allergy) 60 mg tabletIndication s:Seasonal Allergic Rhinitis Take 1 tablet (60 mg total) by mouth every morning Active multivitamin (MULTIPLE VITAMINS ORAL)Indications :supplement Take 1 tablet by mouth every morning Active ferrous sulfate 325 mg (65 mg of elemental iron) tabletIndication s:Iron Deficiency Anemia Take 1 tablet (325 mg total) by mouth 2 (two) times a day Patient reports she ran out about a month ago - planning to get more 019 Active OLANZapine (ZyPREXA) 5 mg tabletIndication s:Endometrial cancer (HCC) Take 1 tablet (5 mg total) by mouth daily Take on Days 2, 3, and 4 of each cycle. 9 tablet 1 023 Active Additional Information Patient not taking.Informant: Self, Reported on 11/15/2024 neomycin (MYCIFRADIN) 500 mg tablet Take 2 tablets at 1 PM, 2 PM, and 10 PM the day before surgery. 6 tablet Active Additional Information Patient not taking.Informant: Self, Reported on 11/15/2024 pregabalin (LYRICA) 75 mg capsuleIndicatio ns:pt unsure of indication Take 1 capsule (75 mg total) by mouth hearing stenographer before breakfast Active acetaminophen (TYLENOL) 500 mg tabletIndication s:Pain Take 2 tablets (1,000 mg total) by mouth every 6 (six) hours as needed for pain 60 tablet 024 Active ibuprofen (ADVIL,MOTRIN) 600 mg tabletIndication s:Pain Take 1 tablet (600 mg total) by mouth every 6 (six) hours as needed for pain 30 tablet 024 Active ketoconazole (NIZORAL) 2 % shampoo Apply topically 2 (two) times a week Use 3 days in a row and then go to 1-2x weekly. Apply to damp skin, lather, leave on 5 minutes, and rinse 120 mL 1 024 Active Additional Information Patient taking differently: 1 ApplicationtopicalAs needed, irritation, Use 3 days in a row and then go to 1-2x weekly. Apply to damp skin, lather, leave on 5 minutes, and rinse,Indications: rash, Informant: Self, Reported on 11/15/2024 insulin glargine 100 unit/mL (3 mL) pen for injectionIndicat ions:diabetes type 2 Inject 40 Units under the skin 2 (two) times a day Active triamcinolone (KENALOG) 0.1 % ointmentIndicati ons:Tinea corporis Apply to area of rash/itching on the thigh twice daily. Avoid applying to face/armpits/groin. 454 g 1 024 Active Additional Information Patient taking differently: 1 Application topical As needed, rash, Apply to area of rash/itching on the thigh twice daily. Avoid applying to face/armpits/groin.,Indications: skin rash, Informant: Self, Reported on 11/15/2024 levothyroxine (SYNTHROID) 125 mcg tabletIndication s:hypothyroidism Take 2 tablets (250 mcg total) by mouth daily after lunch 024 Active famotidine (PEPCID) 20 mg tabletIndication s:Heartburn,cathryn roesophageal reflux disease Take 1 tablet (20 mg total) by mouth daily 30 tablet 4 025 Active Additional Information Patient taking differently:20 mg oralEvery morning, Indications: Heartburn, gastroesophageal reflux disease, Informant: Self, Reported on 11/15/2024 letrozole (FEMARA) 2.5 mg tabletIndication s:Endometrial cancer (HCC),Peritoneal carcinomatosis (HCC) Take 1 tablet (2.5 mg total) by mouth daily 30 tablet 5 025 2024 Active Additional Information Patient taking differently:2.5 mg oralEvery morning, Indications: cancer treatment, Informant: Self, Reported on 11/15/2024 psyllium 0.52 gram capsuleIndicatio ns:constipation Take 1 capsule (0.52 g total) by mouth daily as needed for constipation Active megestroL (MEGACE) 40 mg tabletIndication s:Endometrial Carcinoma Take 1 tablet (40 mg total) by mouth 2 (two) times a day 60 tablet [address] (CYMBALTA) 60 mg capsuleIndicatio ns:Neuropathic Pain Take 1 capsule (60 mg total) by mouth daily 30 capsule 11 025 2025 Active oxyCODONE-acetam inophen (PERCOCET) 5-325 mg per tabletIndication s:Pain Take 1 tablet by mouth every 4 (four) hours as needed for pain 8 tablet 025 Active docusate sodium (COLACE) 100 mg capsuleIndicatio ns:constipation Take 1 capsule (100 mg total) by mouth 2 (two) times a day with a glass of water 8 capsule [address] (CYMBALTA) 30 mg capsuleIndicatio ns:Endometrial cancer (HCC) Take 1 capsule (30 mg total) by mouth daily 30 capsule 11 025 2024 Disconti nued(The rapy complete d) megestroL (MEGACE) 40 mg tabletIndication s:Endometrial Carcinoma Take 1 tablet (40 mg total) by mouth 2 (two) times a day 60 tablet 5 025 2024 Alex shepherd(Reo rder) Active Problems Problem Noted Date Diagnosed Date [...] Encounters Date Type Department Care Team Description 11/15/2024 7:30 AM CDT - 11/15/2024 8:25 AM CDT Surgery [facility] ([facility]) [address] [place] [id number] ShalinitBerenice MD PhD INCISION AND DRAINAGE - BREAST 11/15/2024 7:22 AM CDT Anesthesia Event [facility] ([facility]) [address] [place] [id number] Josias Parikh MD Deibel, Lori, NP 11/15/2024 5:17 AM CDT - 11/15/2024 9:06 AM CDT Hospital Encounter [facility] ([facility]) [address] [place] [id number] Berenice Lemos MD PhD Abscess of right breast Discharge Disposition: Discharge to home or self care 11/09/2024 8:30 AM CDT Office Visit [facility] Obstetrics and Gynecology [address] [place] [address] for Advanced Medicine 13th [place] [address] [place] [address] Sarah Casillas MD Endometrial cancer (HCC) 11/08/2024 Orders Only [facility] Rachael Moncada RN 11/07/2024 Orders Only [facility] Rachael Moncada RN Endometrial cancer (HCC) (Primary Dx) 10/19/2024 1:00 PM CDT [facility]fusion [facility] Gynecologic [facility] ([facility]) [address] [place] [id number] Peritoneal carcinomatosis (HCC) (Primary Dx); Endometrial cancer (HCC) 10/19/2024 Orders Only [facility] Rachael Moncada RN Endometrial cancer (HCC) (Primary Dx) 10/17/2024 Orders Only [facility] Rachael Moncada RN 10/05/2024 4:15 PM CDT Office Visit [facility] Surgery [facility] [address] [place] [phone] Berenice Lemos MD PhD Mammogram abnormal (Primary Dx) 09/29/2024 Orders Only [facility] Rachael Rm RN Endometrial cancer (HCC) (Primary Dx) 09/28/2024 3:30 PM CDT [facility] Gynecologic [facility]cology [place] [facility] ([facility]) [address] [place] [id number] Endometrial cancer (HCC) (Primary Dx); Peritoneal carcinomatosis (HCC) 09/28/2024 2:30 PM CDT Office Visit [facility] Obstetrics and Gynecology [address] [place] [address] Advanced [facility] 13th [place] [address] [place] [address] Quynh Mims MD Endometrial cancer (HCC) 09/28/[address] [facility] Obstetrics and Gynecology [facility] 13th [place] [address] [place] [address] Liane Tovar RN 09/28/2024 Orders Only OB Mirian White RN 09/27/2024 Orders Only [facility] Rachael Moncada RN 09/27/[address] [facility] Cardiothoracic Surgery [address] [place] [address] 8th Floor [address] Room [phone] [place] [phone] Berenice Lemos MD PhD 09/12/2024 2:30 PM CDT - 09/12/2024 11:59 PM CDT Hospital Encounter [facility] [address] [place] [address] Abscess of right breast Discharge Disposition: Discharge to home or self care 09/12/2024 1:00 PM CDT Office Visit [facility] Surgery [facility] [address] [phone] Berenice Lemos MD PhD Mammogram abnormal (Primary Dx) 09/12/2024 Orders Only [facility] Surgery [facility] [address] [place] [phone] Berenice Lemos MD PhD Abscess of right breast (Primary Dx) 09/07/2024 2:00 PM CDT [facility] for [facility] Gynecologic Oncology [facility] Advanced [facility] ([facility]) [address] [place] [phone] Peritoneal carcinomatosis (HCC) (Primary Dx); Endometrial cancer (HCC) 09/07/2024 Orders Only [facility] Rachael Moncada RN 09/06/2024 Orders Only [facility] Rachael Moncada, RN from Last 3 Months Immunizations Immunization Administration Dates Next Due Influenza, Quad, Adjuvantate d, Intramuscular 03/06/2023 Influenza, Quadrivalent, Spl it, Intramuscular 01/31/2019 Influenza, Quadrivalent, Spl it, Preservative Free, Intramuscular 02/11/2022,03/09/2018,03/08/2018 Surgical History Surgery Date Site/Laterality Comments GALLBLADDER SURGERY 05/11/1994 - 05/10/1995 TONSILLECTOMY as a child PORT PLACEMENT CHEST >5 YEARS 05/06/2023 N/A UPPER GASTROINTESTINAL ENDOSCOPY 05/11/2018 - 05/10/2019 COLONOSCOPY x 2, last 08/22/24 THUMB SURGERY at age 7, amputation CATARACT EXTRACTION Bilateral Medical History Medical History Date Comments High [...] Used Date Smoking Tobacco: Every Day Cigarettes 1.5 49.6 Started: 1975 Smokeless Tobacco: Never AUDIT-C Answer Date Recorded Q1: How often do you have a drink containing alcohol? Never 11/15/2024 Q2: How many drinks containi ng alcohol do you have on a typical day when you are drinking? Patient does not drink Q3: How often do you have si x or more drinks on one occasion? Never 11/15/2024 Hunger Vital Sign Answer Date Recorded Within [...] making you feel afraid or unsafe? Denies 11/15/2024 Comments No Sex and Gender Information Value Date Recorded Sex Assigned at Not on file Legal Sex Female 3:27 AM [employer] Gender Identity Not on file Sexual Orientation Not on file Obstetrics History Para Term AB IAB SAB Ectopic Multiple Livin g Live Births 1 1 1 Date Outcome GA Total Labor Labor/2nd/3rd Weight Sex Type Anes PTL Perla A1 A5 Name Clin Para Comments x1 Last Filed Vital Signs Vital Sign Reading Time Taken Comments Blood Pressure 104/89 11/15/2024 8:40 AM CDT Pulse 78 11/15/2024 8:40 AM CDT Temperature 36.2 C (97.2 F) 11/15/2024 8:10 AM CDT Respiratory Rate 22 11/15/2024 8:40 AM CDT Oxygen Saturation 99% 11/15/2024 8:40 AM CDT Inhaled Oxygen Concentration - - Weight 83.5 kg (184 lb) 11/15/2024 6:40 AM CDT Height 160 cm (5' 3) 11/15/2024 6:40 AM CDT Body Mass Index 32.59 11/15/2024 6:40 AM CDT Plan of Treatment Health Maintenance Due Date Last Done Comments Albumin Creatinine Ratio, Urine 1955 Depression Screening 1955 Hepatitis C Screening 1955 Osteoporosis Screening-Bone Density Scan 1955 Dilated Eye Exam 1955 Foot Exam 1955 DTaP/Tdap/Td Vaccine (1 - Tdap) 02/13/1968 Hepatitis B Screening 1975 Pneumococcal vaccine 65+ (1 of 2 - PCV) 02/13/1976 Zoster Vaccine (1 of 2) 02/13/1976 Lung Cancer Screening 2007 Well Visit 65+ 2022 Covid-19 Vaccine (4 - 2023-2 5 season) 2024 04/26/2021, 08/14/2020, 07/17/2020 Influenza Vaccine (#1) 2025 , 02/11/2022, 01/31/2019, Additional history exists Hemoglobin A1C 02/19/2025 08/20/2024, 05/0 01/2024, 04/17/2023 Breast Cancer Screening-Mammogram 08/01/2025 025 Lipid Panel 08/19/2025 08/19/2024 eGFR 08/21/2025 08/21/2024, 08/09, 08/19/2024, Additional history exists Fall Risk Assessment 11/15/2025 11/15/2024 Colon Cancer Screening-Colonoscopy 08/22/20342024, 10/23/2023 Medical Devices Implanted Type Area Nut Grader Device Identifier Shelf Expiration Date Model / Serial / Lot [employer] Excela Low Porfile Power Port 8fr 1.6mm 1 Lumen [id number] - [id number] Implanted:Qty: 1 on 05/06/2023 at [facility] [employer] 01/04/2028 [id number] / / [id number] Procedures Procedure Name Priority Date/Time Associated Diagnosis Comments POCT GLUCOSE DEVICE Routine 11/15/2024 8 :25 AM CDT SURGICAL PATHOLOGY Routine 11/15/2024 7: 48 AM CDT Abscess of right breast INCISION AND DRAINAGE - BREAST 11/15/2024 7:28 AM CDT Abscess of right breast POCT GLUCOSE DEVICE Routine 11/15/2024 7 :10 AM CDT SCAN - LABS 11/08/2024 10:11 PM CDT SCAN - LABS 11/07/2024 11:17 AM CDT SCAN - LABS 10/19/2024 SCAN - LABS 10/17/2024 4:57 PM CDT SCAN - LABS 09/29/2024 11:14 AM CDT [...] SCAN - LABS 09/05/2024 3:10 PM CDT COLONOSCOPY 08/22/2024 9:46 AM CDT EGFR Routine 08/21/2024 9:04 PM CDT HEMOGLOBIN A1C STAT 08/20/2024 5:15 AM CDT LIPID PANEL Routine 08/19/2024 11:58 PM CDT DIAGNOSTIC MAMMOGRAM BILATERAL W HAROON Schedule Routine, Read Routine (OP Routine) 08/01/2024 2:23 PM CDT Endometrial cancer (HCC) Abnormal breast finding from Last 3 Months or Most Recently Relevant to Health Maintenance Results * POCT glucose (11/15/2024 8:25 AM CDT) Pathologist [facility] Glucose, POC 149 70 - 199 mg/dL Blood 11/15/2024 8:25 AM CDT 11/15/2024 8:25 AM CDT Berenice Lemos MD PhD LAB POCT ORDERABLES - ANDRES CE Final Result [facility] Department [place] [address] * Surgical pathology (11/15/2024 7:48 AM CDT) Tissue (Skin, excision) 11/15/2024 7:48 AM CDT Narrative PATHOLOGY [facility] - 11/21/2024 1:27 PM CDT EPIC results best viewed via link to PDF [facility] [place] [address] Note to Patients: This report may contain [...] Gender: F : 1955 (Age: 69) Address: [address] [place], [place] [phone] Hospital #: [id number] Taken:11/15/2024 Received:11/15/2024 Reported: 11/21/2024 Patient Type: [facility] Service: Surgery Location: Physician(s): Bernabe Cooper M.D. Manish Mathur, M.D. Diagnosis: Right breast skin, debridement - Skin with granulation tissue and abscess formation - Negative for malignancy [facility]/11/20/2024 20:10 By this signature, I attest that the above diagnosis is based upon my personal examination of the slides(and/or other material indicated in the diagnosis). Damaris Carey M.D. Report Electronically Reviewed and Signed Out By Damaris Carey M.D. 11/21/2024 13:27:05 Tamica Huang M.D. History: The patient is a 69-year-old woman who presents with abscess of right breast. Operative procedure: Incision and drainage-breast. Specimen(s) Received: A: Right breast skin Gross Description: Received in formalin labeled with the patient's identifiers and designated right breast skin is an unoriented, 3.3 x 1.7 x 1.3 cm elliptical excision of knapp- alvarez skin and subcutis. The skin surface is mechanically distorted by clamp) grossly free of discrete lesions. A putative, previously incised abscess cavity (1.4 cm) is identified at the margin. No gross evidence of malignancy is identified. Sections find fibrous and suppurative cut surfaces. Store Receiver sections are submitted labeled A1. Jar 1. sxv/11/15/2024 11:17 PA(s): Peter Partida MS, PA ([facility])CM By this signature, I attest that the above diagnosis is based upon my personal examination of the slides(and/or other material). Addenda/Procedures The performance characteristics of some immunohistochemical stains, fluorescence in-situ hybridization tests and immunophenotyping by flow cytometry cited in this report (if any) were determined by the Surgical Pathology and Flow Cytometry Departments at [facility] as part of an ongoing fiberglass quality technician program and in compliance with [...] Surgical Pathology and Flow Cytometry Departments of [facility]. It has not been cleared or approved by the [place]. S. Food and Drug Administration. IMAGES AND SCANNED DOCUMENTS, IF INCLUDED, ONLY VIEWABLE IN PDF VERSION OF REPORT us Berenice Lemos MD PhD LAB PATHOLOGY ORDERABLES F inal Result PATHOLOGY [facility] IO 3rd Floor [place], [place] [phone] * POCT glucose (11/15/2024 7:10 AM CDT) Glucose, POC 167 70 - 199 mg/dL Blood 11/15/2024 7:10 AM CDT 11/15/2024 7:10 AM CDT us Berenice Lemos MD PhD LAB POCT ORDERABLES - ANDRES CE Final Result Performing Organization Address [facility] Co de Phone Number [facility] Department [place] [address] * SCAN - LABS (11/08/2024 10:11 PM CDT) Rachael Moncada RN Final Result * SCAN - LABS (11/07/2024 11:17 AM CDT) Rachael Moncada RN Final Result * SCAN - LABS (10/19/2024) Rachael Moncada RN Edited Resul t - Final * SCAN - LABS (10/17/2024 4:57 PM CDT) us Rachael Moncada RN Edited Resul t - Final * SCAN - LABS (09/29/2024 11:14 AM CDT) us Rachael Moncada RN Edited Resul t - Final * (ABNORMAL) POCT glucose (09/28/2024 2:57 PM CDT) Glucose, POC 237(H) 70 - 199 mg/dL Blood 09/28/2024 2:57 PM CDT 09/28/2024 2:57 PM CDT Quynh Mims MD LAB POCT ORDERABLES - DEVICE Final Result Performing Organization Address [facility]/ZIP Co de Phone Number [facility] Department [place] [address] * SCAN - LABS (09/28/2024 1:23 PM [...] aerobic and anaerobic microorganisms (.) [facility] Organism MIXED AEROBIC AND ANAEROBIC MICROORGANISMS [facility] Abscess (Breast, right) 09/12/2024 5:58 PM CDT 09/12/2024 6:36 PM CDT Narrative [facility] - 09/18/2024 1:28 PM CDT Specimen received on an ESwab. Testing performed by [facility] Microbiology Laboratory ([phone]) Specimens submitted from normally sterile body sites [...] GENERAL ORDERABLES Final Result Performing Organization Address [facility]/ZIP Co de Phone Number [facility] Department [place] [address] * SCAN - LABS (09/07/2024 2:47 PM CDT) us Rachael Moncada RN Final Result * SCAN - LABS (09/06/2024 10:11 PM CDT) us Rachael Moncada RN Final Result * SCAN - LABS (09/05/2024 3:10 PM CDT) us Rachael Moncada RN Final Result * Colonoscopy (08/22/2024 9:46 AM CDT) Anatomical Region Laterality Modality Other Narrative Procedure Note Darius Lindo MD - 08/22/2024 9:46 AM CDT GI ENDOSCOPY [facility] Patient Name: Rhnoda Wiseman Procedure Date: 08/22/2024 9:46 AM Date of : 1955 Admit Type: Inpatient Age: 69 Gender: Female Attending MD: Darius Lindo M.D. Room: [facility] ENDOSCOPY ROOM 3 Note Status: Finalized Procedure: [...] The scope was passed under direct vision.The [id number] endoscope was introduced through the anus and advanced to the cecum, identified by appendiceal orifice and ileocecal valve. The bowel preparation used was GoLYTELY via split dose instruction. The quality of the bowel preparationwas evaluated using the BBPS (Waldo Bowel Preparation Scale) with scores of: Right [...] clip was successfully placed (MR conditional). Clip youth development specialist: Yappe. There was no bleeding at the end [...] retrieved. Clip (MR conditional) was placed. Clip youth development specialist: Yappe. - One 14 mm polyp in the [...] Lindo MD ENDOSCOPY PROCEDURES Final Result * eGFR (08/21/2024 9:04 PM CDT) eGFR [...] LAB BLOOD ORDERABLES Final Result [facility] Department [place] [address] * (ABNORMAL) Hemoglobin A1c (08/20/2024 5:15 AM CDT) Hgb A1C 7.0(H) 4.0 - 5.6 % Estimated Average Glucose 154 mg/dL [facility] Comment: The ADA recommends reporting an estimated [...] BLOOD ORDERABLES Final Result [facility] Department [place] [address] * (ABNORMAL) Lipid panel (08/19/2024 11:58 PM [...] on 2017. Triglycerides 99 <=149 mg/dL [facility] Comment: Interpretive Data Ages < or = [...] revised on 2017. HDL 30(L) >=40 mg/dL [facility] Comment: Interpretive Data Ages < or = [...] 2017. LDL, calculated 42 <=129 mg/dL [facility] Comment: Interpretive Data Ages < or = [...] revised on 2023. Non-HDL Cholesterol 61 mg/dL [facility] Comment: Interpretive Data Ages < or = [...] last revised on 2017. Chol/HDL ratio 3 [facility] Blood 08/19/2024 11:5 8 PM CDT 08/20/2024 12:26 AM CDT Narrative [facility] - 08/20/2024 8:24 AM CDT reflex us Quynh iMms MD LAB BLOOD ORDERABLES Final Result [facility] Department [place] [address] * DIAGNOSTIC MAMMOGRAM BILATERAL W HAROON (08/01/2024 [...] RIGHT breast was performed by a trained superintendent stations and by Dr. Hampton . BREAST PARENCHYMAL [...] RIGHT breast was performed by a trained superintendent stations and by Dr. Hampton . BREAST PARENCHYMAL [...] Mims MD IMG MAMMO PROCEDURES Final Result from Last 3 Months or Most Recently Relevant to Health Maintenance Insurance [facility] MEDICARE [facility] MEDICARE [facility] Advance Directives For more information, please contact: [phone] * Full Code (Latest Code Status on File) Date Activated Date Inactivated Comments 08/19/2024 1:31 PM 08/22/2024 6:55 PM * Full Code Date Activated Date Inactivated Comments 10/23/2023 7:57 AM 10/23/2023 1:38 PM Care Teams Hr Specialist Relationship Specialty Start Date End Date Andrea Chandler MD PCP - General Internal Medicine 03/31/23
--- OUTSIDE RECORDS SUMMARY | 2024-11-28 10:17 | XMS_ITS | Referral Summary ---
Author Organization [facility] [address] Address [address] [place] [address] Care Team Providers Care Compliance Vice President Name Role Phone Andrea Chandler MD Primary Care Provider [phone] Encounters Date Type Department Care Team Description 11/15/2024 7:30 AM CDT - 11/15/2024 8:25 AM CDT Surgery [facility] Operating [facility] ([facility]) [address] [place] [address] Berenice Lemos MD PhD INCISION AND DRAINAGE - BREAST 11/15/2024 7:22 AM CDT Anesthesia Event [facility] Operating Room [facility] ([facility]) [address] [place] [address] 48085 Josias Parikh MD Deibel, Lori, NP 11/15/2024 5:17 AM CDT - 11/15/2024 9:06 AM CDT Hospital Encounter [facility] Operating Room [facility] ([facility]) [address] [place] [address] Berenice Lemos MD PhD Abscess of right breast Discharge Disposition: Discharge to home or self care 11/09/2024 8:30 AM CDT Office Visit [facility] Obstetrics and Gynecology [address] [place] [address] Advanced Medicine 13th [place] [address] [place] [address] Sarha Casillas MD Endometrial cancer (HCC) 11/08/2024 Orders Only [facility] Rachael Moncada RN 11/07/2024 Orders Only [facility] Rachael Moncada RN Endometrial cancer (HCC) (Primary Dx) 10/19/2024 Orders Only [facility] Rachael Rm RN Endometrial cancer (HCC) (Primary Dx) 10/19/2024 1:00 PM CDT [facility]fusion [facility] Gynecologic Oncology [facility] ([facility]) [address] [place] [address] Peritoneal carcinomatosis (HCC) (Primary Dx); Endometrial cancer (HCC) 10/17/2024 Orders Only [facility] Rachael Moncada RN 10/05/2024 4:15 PM CDT Office Visit [facility] Surgery [address] [facility] Floor 8 [place] [phone] Berenice Lemos MD PhD Mammogram abnormal (Primary Dx) 09/29/2024 Orders Only [facility] Rachael Rm RN Endometrial cancer (HCC) (Primary Dx) 09/28/2024 Documentation [facility] Obstetrics and Gynecology [address] [place] [address] 13th [place] [address] [place] [phone] Liane Tovar RN 09/28/2024 Orders Only [facility] ON[facility] Mirian Lund RN 09/28/2024 3:30 PM CDT Infusion [facility] Gynecologic Oncology [facility] ([facility]) [address] [place] [address] Endometrial cancer (HCC) (Primary Dx); Peritoneal carcinomatosis (HCC) 09/28/2024 2:30 PM CDT Office Visit [facility] Obstetrics and Gynecology [address] [place] [address] 13th [place] [address] [place] [phone] Qunyh Mims MD Endometrial cancer (HCC) 09/27/2024 Orders Only [facility] ON[facility] Rachael Moncada RN 09/27/2024 Telephone [facility] Cardiothoracic Surgery [address] [place] [address] 8th Floor [id number] [place] [phone] Berenice Lemos MD PhD 09/12/2024 2:30 PM CDT - 09/12/2024 11:59 PM CDT Hospital Encounter [facility] [address] [place] [address] Abscess of right breast Discharge Disposition: Discharge to home or self care 09/12/2024 Orders Only [facility] Surgery [address] [place] [address] 8 [place] [address] Berenice Lemos MD PhD Abscess of right breast (Primary Dx) 09/12/2024 1:00 PM CDT Office Visit [facility] Surgery [address] [facility] 8 [place] [address] Berenice Lemos MD PhD Mammogram abnormal (Primary Dx) 09/07/2024 Orders Only [facility] Rachael Moncada, RN 09/07/2024 2:00 PM CDT [facility] Gynecologic [facility] ([facility]) [address] [place] [id number] Peritoneal carcinomatosis (HCC) (Primary Dx); Endometrial cancer (HCC) 09/06/2024 Orders Only [facility] Rachael Moncada, RN from Last 3 Months Allergies Active [...] PM the day before surgery. 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 454 g 1 Active Additional Information Patient taking differently: 1 Application topical As needed, rash, Apply to area of rash/itching on the thigh twice daily. Avoid applying to face/armpits/groin.,Indications: skin rash, Informant: Self, Reported on 11/15/2024 levothyroxine (SYNTHROID) 125 mcg tabletIndication s:hypothyroidism Take 2 tablets (250 mcg total) by mouth daily after lunch Active famotidine (PEPCID) 20 mg tabletIndication s:Heartburn,cathryn roesophageal reflux disease Take 1 tablet (20 mg total) by mouth daily 30 tablet 4 Active Additional Information Patient taking differently:20 mg [...] (two) times a day 60 tablet [address] (CYMBALTA) 60 mg capsuleIndicatio ns:Neuropathic Pain Take 1 capsule (60 mg total) by mouth daily 30 capsule 11 025 2025 Active oxyCODONE-acetam inophen (PERCOCET) 5-325 mg per tabletIndication s:Pain Take 1 tablet by mouth every 4 (four) hours as needed for pain 8 tablet Active docusate sodium (COLACE) 100 mg capsuleIndicatio ns:constipation Take 1 capsule (100 mg total) by mouth 2 (two) times a day with a glass of water [address] (CYMBALTA) 30 mg capsuleIndicatio ns:Endometrial cancer (HCC) Take 1 capsule (30 mg total) by mouth daily 30 capsule 11 025 2024 Disconti nued(The rapy complete d) megestroL (MEGACE) 40 mg tabletIndication s:Endometrial Carcinoma Take 1 tablet (40 mg total) by mouth 2 (two) times a day 60 tablet 5 025 2024 Disconti nued(Reo rder) Active Problems Problem Noted Date Diagnosed [...] on file 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 Gender Identity Not on file Sexual [...] 11/15/2024 6:40 AM CDT Plan of Treatment Not on file Medical Devices Implanted Type Area Probation Manager Device Identifier Shelf Expiration Date Model / Serial / Lot [employer] Excela Low Porfile Power Port 8fr 1.6mm 1 Lumen [id number] - [id number] Implanted:Qty: 1 on 05/06/2023 at [facility] [employer] 01/04/2028 [id number] / / [id number] Procedures Procedure Name Priority Date/Time Associated Diagnosis [...] * POCT glucose (11/15/2024 8:25 AM CDT) Glucose, POC 149 70 - 199 mg/dL Blood 11/15/2024 8:25 AM CDT 11/15/2024 8:25 AM CDT us Berenice Lemos MD PhD LAB POCT ORDERABLES - ANDRES CE Final Result [facility] Department [place] [address] * Surgical pathology (11/15/2024 7:48 AM CDT) Tissue (Skin, excision) 11/15/2024 7:48 AM CDT Narrative PATHOLOGY [facility] - 11/21/2024 1:27 PM CDT EPIC results best viewed via link to PDF [facility] [place] [address] Note to Patients: This report may contain [...] Gender: F : 1955 (Age: 69) Address: [address] [place], [place] [phone] Hospital #: [id number] Taken:11/15/2024 Received:11/15/2024 Reported: 11/21/2024 Patient Type: [facility] Service: Surgery Location: Physician(s): Bernabe Cooper M.D. Manish Mathur, M.D. Diagnosis: Right breast skin, debridement - Skin with granulation tissue and abscess formation - Negative for malignancy krpr/11/20/2024 20:10 By this signature, I attest that [...] Sections find fibrous and suppurative cut surfaces. Product Tester sections are submitted labeled A1. Jar 1. sxv/11/15/2024 11:17 PA(s): Peter Partida MS, JOSE ([facility])CM By this signature, I attest that the above diagnosis is based upon my personal examination of the slides(and/or other material). Addenda/Procedures The performance characteristics of some immunohistochemical stains, fluorescence in-situ hybridization tests and immunophenotyping by flow cytometry cited in this report (if any) were determined by the Surgical Pathology and Flow Cytometry Departments at [facility] as part of an ongoing data quality consultant program and in compliance with federally mandated [...] Pathology and Flow Cytometry Departments of [facility]. It has not been cleared or approved by the U. S. Food and Drug Administration. IMAGES AND SCANNED DOCUMENTS, IF INCLUDED, ONLY VIEWABLE IN PDF VERSION OF REPORT us Berenice Lemos MD PhD LAB PATHOLOGY ORDERABLES F inal Result PATHOLOGY [facility] 3rd Floor [place], [place] [phone] * POCT glucose (11/15/2024 7:10 AM CDT) Glucose, POC 167 70 - 199 mg/dL Blood 11/15/2024 7:10 AM CDT 11/15/2024 7:10 AM CDT Result [facility] Berenice Lemos MD PhD LAB POCT ORDERABLES - ANDRES CE Final Result [facility] Department [place] [address] * SCAN - LABS (11/08/2024 10:11 PM CDT) Rachael Moncada RN Final Result * SCAN - LABS (11/07/2024 11:17 AM CDT) Rachael Moncada RN Final Result * SCAN - LABS (10/19/2024) Rachael Moncada RN Edited Resul t - Final * SCAN - LABS (10/17/2024 4:57 PM CDT) Rachael Moncada RN Edited Resul t - Final * SCAN - LABS (09/29/2024 11:14 AM CDT) Rachael Moncada RN Edited Resul t - Final * (ABNORMAL) POCT glucose (09/28/2024 2:57 PM CDT) Glucose, POC 237(H) 70 - 199 mg/dL Blood 09/28/2024 2:57 PM CDT 09/28/2024 2:57 PM CDT Quynh Mims MD LAB POCT ORDERABLES - DEVICE Final Result Performing Organization Address [facility] Co de Phone Number [facility] Department [place] [address] * SCAN - LABS (09/28/2024 1:23 PM CDT) Mirian Lund RN Final Result * SCAN - LABS (09/27/2024 2:52 PM CDT) Rachael Moncada RN Final Result * (ABNORMAL) Aerobic and anaerobic culture and gram stain Abscess Breast, right (09/12/2024 5:58 PM CDT) Direct Specimen Exam Stain: No polymorphonuclear leukocytes seen. No organisms seen. Report Final Report: Few Mixed aerobic and anaerobic microorganisms (.) [facility] Organism MIXED AEROBIC AND ANAEROBIC MICROORGANISMS [facility] Abscess (Breast, right) 09/12/2024 5:58 PM CDT 09/12/2024 6:36 PM CDT Narrative [facility] - 09/18/2024 1:28 PM CDT Specimen received on an ESwab. Testing performed by [facility] Microbiology Laboratory ([phone]) Specimens submitted from normally sterile body sites [...] GENERAL ORDERABLES Final Result Performing Organization Address [facility]/ZIP Co de Phone Number [facility] Department [place] [address] * SCAN - LABS (09/07/2024 2:47 PM CDT) Rachael Moncada RN Final Result * SCAN - LABS (09/06/2024 10:11 PM CDT) Rachael Moncada RN Final Result * SCAN - LABS (09/05/2024 3:10 PM CDT) Rachael Moncada RN Final Result * Colonoscopy (08/22/2024 9:46 AM CDT) Anatomical Region Laterality Modality Other Narrative Procedure Note Darius Lindo MD - 08/22/2024 9:46 AM CDT GI ENDOSCOPY [facility] Patient Name: Rhonda Wiseman Procedure Date: 08/22/2024 9:46 AM Date of : 1955 Admit Type: Inpatient Age: 69 Gender: Female Attending MD: Darius Lindo M.D. Room: [facility] ENDOSCOPY ROOM 3 Note Status: Finalized Procedure: Colonoscopy Indications: Last colonoscopy 1 year ago (October 2023), Rectal bleeding Referring MD: Marcie Norman Jr, M.D., Quynh Mims M.D. Providers: Darius M. Korenblat, M.D. Medicines: Monitored Anesthesia Care Complications: No [...] scope was passed under direct vision.The CF [id number] endoscope was introduced through the anus and advanced to the cecum, identified by appendiceal orifice and ileocecal valve. The bowel preparation used was GoLYTELY via split dose instruction. The quality of the bowel preparationwas evaluated using the BBPS ([place] Bowel Preparation Scale) with scores of: Right [...] clip was successfully placed (MR conditional). Clip lab systems analyst: [place] [employer]. There was no bleeding at the end [...] retrieved. Clip (MR conditional) was placed. Clip lab systems analyst: [employer]. - One 14 mm polyp in the [...] Mims MD LAB BLOOD ORDERABLES Final Result [facility] Department [place] [address] * (ABNORMAL) Hemoglobin A1c (08/20/2024 5:15 AM CDT) Hgb A1C 7.0(H) 4.0 - 5.6 % Estimated Average Glucose 154 mg/dL [facility] Comment: The ADA recommends reporting an [...] BLOOD ORDERABLES Final Result [facility] Department [place] [address] * (ABNORMAL) Lipid panel (08/19/2024 11:58 PM [...] on 2017. Triglycerides 99 <=149 mg/dL [facility] Comment: Interpretive Data Ages < [...] revised on 2017. HDL 30(L) >=40 mg/dL [facility] Comment: Interpretive Data Ages < [...] on 2017. LDL, calculated 42 <=129 mg/dL [facility] Comment: Interpretive Data Ages < [...] revised on 2023. Non-HDL Cholesterol 61 mg/dL [facility] Comment: Interpretive Data Ages < [...] last revised on 2017. Chol/HDL ratio 3 [facility] Blood 08/19/2024 11:5 8 PM CDT 08/20/2024 12:26 AM CDT Narrative [facility] - 08/20/2024 8:24 AM CDT reflex us Quynh Mims MD LAB BLOOD ORDERABLES Final Result [facility] Department [place] [address] * DIAGNOSTIC MAMMOGRAM BILATERAL W [place] (08/01/2024 [...] RIGHT breast was performed by a trained steam boiler fireman and by Dr. Hampton . BREAST PARENCHYMAL [...] RIGHT breast was performed by a trained steam boiler fireman and by Dr. Hampton . BREAST PARENCHYMAL [...] Health Maintenance Insurance [place] MEDICARE [facility] MEDICARE IDPA Advance Directives For more information, please contact: [phone] * Full Code (Latest Code Status on File) Date Activated Date Inactivated Comments 08/19/2024 1:31 PM 08/22/2024 6:55 PM * Full Code Date Activated Date Inactivated Comments 10/23/2023 7:57 AM 10/23/2023 1:38 PM Care Teams Compliance Vice President Relationship Specialty Start Date End Date Andrea Chandler MD PCP - General Internal Medicine 03/31/23
--- OUTSIDE RECORDS SUMMARY | 2024-11-28 10:17 | XMS_ITS ---
Author Organization [facility] [address] Address [address] [place] [address] Care Team Providers Care Hardwood Flooring Specialist Name Role Phone Andrea Chandler MD Primary Care Provider [phone] Active Problems Problem Noted Date Diagnosed Date [...] medications scheduled. Pembrolizumab 21 Day Cycles - CAMERA SUPERVISOR (Carbo Completed)* Plan Start Date:04/30/2023 Plan Provider:Quynh Mims MD Linked Problems Endometrial cancer (HCC) Treatment Medications Current Day (Day 1 , Cycle 26 - Planned for 11/30/2024) Next Day (Day 1, Cycle 27 - Planned for 12/21/2024) CARBOplatin (PARAPLATIN) IVP B in 250 mL [...]
--- OUTSIDE RECORDS SUMMARY | 2024-11-28 10:17 | XMS_ITS | Patient Health Record ---
Author Organization [facility] Address [address] [place] [address] Care Team Providers Care Roustabout Head Name Role Phone Madeline Benton Primary Care Provider Reason For Referral No Information Medications Medication SIG (Take, Route, Frequency, Duration) Notes Start Date End Date Status Jardiance 10 MG 1 tablet Orally Once a day; Duration: 30 day(s) Active Cholestyramine 4 GM 1 packet mixed with water or non-carbonated drink Orally Once a day; Duration: 30 day(s) Active Vitamin B-12 1000 MCG as directed Orally Active iron 1 tab Oral; Duration : 14 days Active Cherelle 60 MG as directed Orally Active metFORMIN HCl 500 MG 1 tablet with a johnathan l Orally Once a day; Duration: 30 day(s) Active Verapamil HCl 40 MG 1 tablet Orally Thre e times a day; Duration: 30 day(s) Active Atorvastatin Calcium 10 MG 1 tablet Oral ly Once a day; Duration: 30 day(s) Active Omeprazole 10 MG 1 capsule 30 minutes before morning meal Orally Once a day; Duration: 30 day(s) Active Social History Tobacco Use: Social History Observation Description Date Details (start date - stop date) Current Smoker NA - NA Tobacco Use/Smoking Question Answer Notes Are you a current smoker Plan Of Treatment No Information Insurance Providers Payer Name Payer Address Payer Phone Subscriber Number Group Number Insured Name Patient Relationship to Insured Coverage Start Date Coverage End Date [place] Blue Cross Blue [facility] [address] [place] [id number] Arti Corrigan Self - patient is the insured [employer] [place] [address] [place] [address] [phone] [id number] Arit Corrigan Self - patient is the insured Medical (General) History Medical History History ICD Code high blood pressure diabetes Surgical History Surgery Date(Month/Year) tonsils removed galbladder removed thumb
--- OUTSIDE RECORDS SUMMARY | 2024-11-28 10:17 | XMS_ITS | Clinical Summary ---
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 Gender Identity Not on file Sexual [...] (HCV) Screening 1955 TdaP Immunization 1955 Cologuard 2002 Immunochemical Fecal Occult Blood 2002 Pneumococcal Immunization (5 0+ years) (1 of 1 - PCV) 2007 Zoster Immunization (1 of 2) 2007 SARS-COV-2 Immunization (2023- season) 2024 04/26/2021, 08/14/2020, 07/17/2020 Influenza Immunization (#1) 01/09/202501/10, 03/08/2018 Colonoscopy 09/13/2028 09/13/2018, 08/26/2018 Colorectal Cancer [...] CHEST W/O CONTRAST Routine 04/13/2019 9:22 AM ARCHERY INSTRUCTOR Lung nodule < 6cm on CT from Last 3 Months or Most Recently Relevant to Health Maintenance Results * CT CHEST W/O CONTRAST (04/13/2019 9:22 AM ARCHERY INSTRUCTOR) Anatomical Region Laterality Modality Chest N/A Computed Tomogra phy 04/13/2019 9:40 AM ARCHERY INSTRUCTOR Impressions 04/13/2019 9:43 AM ARCHERY INSTRUCTOR IMPRESSION: 1. A 5 mm ground-glass nodule [...] as described above. Narrative 04/13/2019 9:43 AM ARCHERY INSTRUCTOR EXAM DESCRIPTION: CT CHEST W/O CONTRAST REASON [...] Rojelio Yun M.D. RL: DEVIN Report ID: [id number] Reading Location: [id number] Procedure Note Rojelio Yun MD - 04/13/2019 [...] Rojelio Yun M.D. RL: DEVIN Report ID: [id number] Reading Location: [id number] IMPRESSION: 1. A 5 mm ground-glass nodule [...] Insurance MEDICAID BLUE CROSS [place] Care Teams Browning Processor Relationship Specialty Start Date End Date Emery Higgins DO [address] [place] [address] PCP - General Internal Medicine 07/13/18
[2024-11-28 10:33] LABS: Hematocrit 33.0 % (35.0-42.0); Hemoglobin 9.6 g/dL (11.7-13.8); Immature Granulocyte Percent A 0.6 % (0.0-0.0); Lymphocytes Absolute Auto 2.98 K/mm3 (1.10-4.50); Mean Corpuscular HGB Conc 29.1 g/dL (32-36); Mean Corpuscular Hemoglobin 21.5 pg (27.0-31.0); Mean Corpuscular Volume 74.0 fL (78.0-102.0); Nucleated Red Blood Cells Absolute Auto 0.00 K/mm3 (0.00-0.00); Nucleated Red Blood Cells Perc 0.0 % (0-0.0); Platelet Count Result 226 K/mm3 (150-420); Red Blood Count 4.46 M/mm3 (4.20-5.40); White Blood Count 11.3 K/mm3 (4.8-10.8)
[2024-11-28 11:07] LABS: Alanine Aminotransferase 19 U/L (6-35); Albumin Level 3.8 g/dL (3.5-5.1); Alkaline Phosphatase 68 U/L (38-126); Anion Gap 3 mmol/L (4-12); Aspartate Amino Transferase 25 U/L (14-36); Bilirubin,Total 0.4 mg/dL (0.2-1.3); Blood Urea Nitrogen 17 mg/dL (7-17); Calcium 8.8 mg/dL (8.4-10.2); Carbon Dioxide 24 mmol/L (22-30); Chloride 109 mmol/L (98-107); Estimated Glomerular Filt Rate > 60; Glucose 123 mg/dL (65-110); Magnesium 2.0 mg/dL (1.6-2.3); Osmolality Calculated 284 mOsm/kg (285-295); Potassium 4.2 mmol/L (3.4-5.0); Sodium 136 mmol/L (137-145); Total Protein 6.1 g/dL (6.3-8.2)
[2024-11-28 11:38] LABS: Thyroid Stimulating Hormone Reflex 1.380 uIU/mL (0.465-4.68)
[2024-11-29 15:39] LABS: Hemoglobin A1C 8.3 % (<5.7)
== END 2024-11-28 10:05 | disposition home or self-care (01) ==
LOC: CHSLAB 10:07
PROVIDERS: PCP Internal Medicine
DX: C54.1 Malignant neoplasm of endometrium (principal); E11.9 Type 2 diabetes mellitus without complications
CPT/HCPCS: 36415; 80053; 83036; 83735; 84443; 85025; 86304

== ENCOUNTER 2024-12-19 10:28 | Outpatient (CLI) | payer MEDICARE, MEDICAID, SELFPAY ==
--- OUTSIDE RECORDS SUMMARY | 2024-12-19 10:41 | XMS_ITS | Encounter Summary ---
Author Organization [facility] Address [address] [place] [address] Phone Care Team Providers Care Land Survey Technician Name Role Phone Andrea Chandler MD Primary Care Provider [phone] Reason for Visit * Consultation (Routine) - Closed Specialty Diagnoses / Procedures Referred By Contac t Referred To Contact Gastroenterology Diagnoses Endometrial cancer Gastroesophageal reflux disease without esophagitis Heartburn Acute epigastric pain Quynh Mims MD [address] [facility] [id number] [place] [address] Phone: tel: fax: [facility] (All Locations) Referral ID Status Reason Start Date Expiration Date V isits Requested Visits Authorized [id number] Closed Specialty Services Required 07/06/2024 08/05/2025 1 1 Encounter Details Date Type Department Care Team (Late st Contact Info) Description 12/19/2024 8:30 AM CDT Office Visit [facility] Gastroenterology [address] [facility] Medicine 12th [place] [address] [place] [address] Lou Beltran PA [address] [place] [address] Social History Tobacco Use Types Packs/Day Years Used Date Smoking Tobacco: Every Day Cigarettes 1.5 49.6 Started: 1975 Passive Smoke Exposure: Current Smokeless Tobacco: Never Tobacco Cessation:Ready to Q [...] the money to buy more. Never true 12/01/19 25 Within the past 12 months, t he food you bought just didn't last and you didn't have money to get more. Never true 11/30/2024 Personal Safety Answer Date Recorded Have you ever been in or are you currently in a harmful physical or emotional relationship or is someone making you feel afraid or unsafe? 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 Gender Identity Not on file Sexual Orientation Not on file documented as of this encounter Last Filed Vital Signs Vital Sign Reading Time Taken Comments Blood Pressure 175/90 12/19/2024 8:09 AM CDT Pulse 90 12/19/2024 8:09 AM CDT Temperature 36.5 C (97.7 F) 12/19/2024 8:09 AM CDT Respiratory Rate - - Oxygen Saturation 98% 12/19/2024 8:09 AM CDT Inhaled Oxygen Concentration - - Weight 83 kg (183 lb) 12/19/2024 8:09 AM CDT Height 160.1 cm (5' 3.03) 12/19/2024 8:09 AM CD T Body Mass Index 32.39 12/19/2024 8:09 AM CDT documented in this encounter Patient Instructions * Patient Instructions* Lou Beltran PA - 12/19/2024 8:30 AM CDT Our office will call you to arrange upper endoscopy and colonoscopy Try to avoid all NSAIDs Consider using Miralax every other day to prevent constipation documented in this encounter Plan of Treatment Not on file documented as of this encounter Visit Diagnoses Not on filedocumented in this encounter Discontinued Medications Medication Sig Discontinue Reason Start Date End Da te oxyCODONE-acetaminophen (PERCOCET) 5-325 mg per tabletIndications:Pain Take 1 tablet by mouth every 4 (four) hours as needed for pain 11/15/2024 12/19/2024 documented as of this encounter Orders Outpatient Referral Count Last Ordered Date Fir st Ordered Date AMB REFERRAL TO GASTROENTEROLOGY 1 12/20/19 25 documented in this encounter Care Teams Land Survey Technician Relationship Specialty Start Date End Date Andrea Chandler MD PCP - General Internal Medicine 03/31/23 documented as of this encounter
--- OUTSIDE RECORDS SUMMARY | 2024-12-19 10:41 | XMS_ITS ---
Author Organization [facility] [address] Address [address] [place] [address] Care Team Providers Care Wood Scaler Name Role Phone Andrea Chandler MD Primary Care Provider [phone] Active Problems Problem Noted Date Diagnosed Date [...] Plan Provider:Quynh Mims MD Linked Problems Endometrial cancerPeritoneal carcinomatosis (HCC) Treatment Medications No medications scheduled. Pembrolizumab 21 Day Cycles - RIBBON SWEATBAND OPERATOR (Carbo Completed)* Plan Start Date:04/30/2023 Plan Provider:Quynh Mims MD Linked Problems Endometrial cancer Treatment Medications Current Day (Day 1 , Cycle 27 - Planned for 12/21/2024) Next Day (Day 1, Cycle 28 - Planned for 01/11/2025) CARBOplatin (PARAPLATIN) IVP B in 250 mL [...]
--- OUTSIDE RECORDS SUMMARY | 2024-12-19 10:41 | XMS_ITS | Patient Health Record ---
Author Organization [facility] Address [address] [place] [address] Care Team Providers Care Bait Digger Name Role Phone Madeline Benton Primary Care [...] Insured Coverage Start Date Coverage End Date [place] Blue Cross Blue [facility] [address] JOSE Doran [id number] Arti Corrigan Self - patient is the insured [employer] [place] [address] [place] [address] [id number] Arti Corrigan Self - patient is the insured Medical (General) History Medical History History ICD Code high blood pressure diabetes Surgical History Surgery Date(Month/Year) tonsils removed galbladder removed thumb
--- OUTSIDE RECORDS SUMMARY | 2024-12-19 10:41 | XMS_ITS | Clinical Summary ---
Author Organization [facility] [address] Address [address] [place] [address] Care Team Providers Care R Developer Name Role Phone Andrea Chandler MD Primary Care Provider [phone] Allergies Active Allergy Reactions Criticality Noted Date Comments Paclitaxel Shortness of breath,Other (See comments),Flushing (skin) High 05/12/2023 Patient reports feeling hot and thought she was going to pass out, tightness in head Medications verapamil SR (CALAN SR) 240 mg CR tabletIndications :hypertension Take 1 tablet (240 mg total) by mouth every morning 023 Active montelukast (SINGULAIR) 10 mg tabletIndications :Seasonal Allergic Rhinitis Take 1 tablet (10 mg total) by mouth every evening 023 Active atorvastatin (LIPITOR) 10 mg tabletIndications :hyperlipidemia Take 1 tablet (10 mg total) by mouth nightly Active fexofenadine (Cherelle Allergy) 60 mg tabletIndications :Seasonal Allergic Rhinitis Take 1 tablet (60 mg total) by mouth every morning Active multivitamin (MULTIPLE VITAMINS ORAL)Indications: supplement Take 1 tablet by mouth every morning Active ferrous sulfate 325 mg (65 mg of elemental iron) tabletIndications :Iron Deficiency Anemia Take 1 tablet (325 mg total) by mouth 2 (two) times a day Patient reports she ran out about a month ago - planning to get more 019 Active OLANZapine (ZyPREXA) 5 mg tabletIndications :Endometrial cancer Take 1 tablet (5 mg total) by mouth daily Take on Days 2, 3, and 4 of each cycle. 9 tablet 1 023 Active neomycin (MYCIFRADIN) 500 mg tablet Take 2 tablets at 1 PM, 2 PM, and 10 PM the day before surgery. 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 Apply to damp skin, lather, leave on 5 minutes, and rinse 120 mL 1 Active Additional Information Patient taking differently: No details specified, Informant: Self, Reported on 12/19/2024 insulin glargine 100 unit/mL (3 mL) pen for injectionIndicati ons:diabetes type 2 Inject 40 Units under the skin 2 (two) times a day Active triamcinolone (KENALOG) 0.1 % ointmentIndicatio ns:Tinea corporis Apply to area of rash/itching on the thigh twice daily. Avoid applying to face/armpits/gr oin. 454 g 1 Active Additional Information Patient taking differently: No details specified, Informant: Self, Reported on 12/19/2024 levothyroxine (SYNTHROID) 125 mcg tabletIndications :hypothyroidism Take 2 tablets (250 mcg total) by mouth daily after lunch Active famotidine (PEPCID) 20 mg tabletIndications :Heartburn,gastro esophageal reflux disease Take 1 tablet (20 mg total) by mouth daily 30 tablet 4 025 Active Additional Information Patient taking differently: No details specified, Informant: Self, Reported on 12/19/2024 letrozole (FEMARA) 2.5 mg tabletIndications :Endometrial cancer,Peritoneal carcinomatosis (HCC) Take 1 tablet (2.5 mg total) by mouth daily 30 tablet 5 025 2024 Active Additional Information Patient taking differently: No details specified, Informant: Self, Reported on 12/19/2024 psyllium 0.52 gram capsuleIndication s:constipation Take 1 capsule (0.52 g total) by mouth daily as needed for constipation Active megestroL (MEGACE) 40 mg tabletIndications :Endometrial Carcinoma Take 1 tablet (40 mg total) by mouth 2 (two) times a day 60 tablet [address] (CYMBALTA) 60 mg capsuleIndication s:Neuropathic Pain Take 1 capsule (60 mg total) by mouth daily 30 capsule 11 025 2025 Active docusate sodium (COLACE) 100 mg capsuleIndication s:constipation Take 1 capsule (100 mg total) by mouth 2 (two) times a day with a glass of water 8 capsule 025 Active oxyCODONE-acetami nophen (PERCOCET) 5-325 mg per tabletIndications :Pain Take 1 tablet by mouth every 4 (four) hours as needed for pain 8 tablet 025 2024 Discontinued Active Problems Problem Noted Date Diagnosed Date [...] Encounters Date Type Department Care Team Description 12/19/2024 8:30 AM CDT Office Visit [facility] Gastroenterology [address] [facility] 12th [place] [address] [place] [address] Lou Beltran PA 12/05/2024 4:15 PM CDT Office Visit [facility] Surgery [address] [facility] [address] Floor [address] [place] [phone] Berenice Lemos MD PhD Mucinous adenocarcinoma (HCC) (Primary Dx); Mammogram abnormal 11/30/2024 1:[address] [facility] Advanced [facility] Gynecologic Oncology [facility] ([facility]) [address] [place] [address] Peritoneal carcinomatosis (HCC) (Primary Dx); Endometrial cancer (HCC) 11/30/2024 10:15 AM CDT Office Visit [facility] Obstetrics and Gynecology [address] [place] [address] 13th [place] [address] [place] [phone] Quynh Mims MD Endometrial cancer (HCC) 11/29/2024 Orders Only [facility] Rachael Moncada RN Endometrial cancer (HCC) (Primary Dx); Encounter for antineoplastic chemotherapy; Elevated CA-125 11/28/2024 Orders Only [facility] Rachael Moncada RN 11/15/2024 7:30 AM CDT - 11/15/2024 8:25 AM CDT Surgery [facility] Operating [facility] ([facility]) [address] [place] [address] Berenice Lemos MD PhD INCISION AND DRAINAGE - BREAST 11/15/2024 7:22 AM CDT Anesthesia Event [facility] Operating [facility] ([facility]) [address] [place] [address] Josias Parikh MD Deibel, Lori, NP 11/15/2024 5:17 AM CDT - 11/15/2024 9:06 AM CDT Hospital Encounter [facility] Operating [facility] ([facility]) [address] [place] [address] Berenice Lemos MD PhD Abscess of right breast Discharge Disposition: Discharge to home or self care 11/09/2024 8:30 AM CDT Office Visit [facility] Obstetrics and Gynecology [address] [place] [address] 13th [place] [address] [place] [phone] 944 Sarah Casillas MD Endometrial cancer (HCC) 11/08/2024 Orders Only [facility] Rachael Moncada RN 11/07/2024 Orders Only [facility] Rachael Rm RN Endometrial cancer (HCC) (Primary Dx) 10/19/2024 1:00 PM CDT [facility]fusion [facility] Gynecologic Oncology [facility] ([facility]) [address] [place] [address] Peritoneal carcinomatosis (HCC) (Primary Dx); Endometrial cancer (HCC) 10/19/2024 Orders Only [facility] Rachael Moncada RN Endometrial cancer (HCC) (Primary Dx) 10/17/2024 Orders Only [facility] Rachael Moncada RN 10/05/2024 4:15 PM CDT Office Visit [facility] Surgery [address] [facility] [address] [place] [phone] Aft, Berenice Sotomayor MD PhD Mammogram abnormal (Primary Dx) 09/29/2024 Orders Only [facility] Rachael Rm RN Endometrial cancer (HCC) (Primary Dx) 09/28/2024 3:30 PM CDT Infusion [facility] Gynecologic Oncology [facility] ([facility]) [address] [place] [address] Endometrial cancer (HCC) (Primary Dx); Peritoneal carcinomatosis (HCC) 09/28/2024 2:30 PM CDT Office Visit [facility] Obstetrics and Gynecology [address] [place] [address] Advanced [facility] 13th [place] [address] Quynh Mims MD Endometrial cancer (HCC) 09/28/2024 Documentation [facility] Obstetrics and Gynecology [address] [facility] Advanced Medicine 13th [place] [address] [place] [phone] Liane Tovar RN 09/28/2024 Orders Only [facility] Mirian Lund RN 09/27/2024 Orders Only [facility] Rachael Moncada RN 09/27/2024 Telephone [facility] Cardiothoracic Surgery [address] [facility] Medicine 8th Floor [address] Room [address] [place] [phone] Aft, Berenice Sotomayor MD PhD from Last 3 Months Immunizations Immunization Administration [...] mellitus (HCC) COPD (chronic obstructive pulmonary disease) HLD (hyperlipidemia) Endometrial cancer Renal cyst Tobacco use GERD (gastroesophageal reflux disease) Type 2 diabetes mellitus Hypothyroidism Overweight Family History Medical History Relation [...] on file Legal 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 Gender Identity Not on file Sexual [...] F) 12/19/2024 8:09 AM CDT Respiratory Rate 18 11/30/2024 10:28 AM CDT Oxygen Saturation 98% 12/19/2024 8:09 AM CDT Inhaled Oxygen Concentration - - Weight 83 kg (183 lb) 12/19/2024 8:09 AM CDT Height 160.1 cm (5' 3.03) 12/19/2024 8:09 AM CD T Body Mass Index 32.39 12/19/2024 8:09 AM CDT Plan of Treatment Health Maintenance [...] 2007 Well Visit 65+ 2022 Covid-19 Vaccine ( [...] 08/22/20342024, 10/23/2023 Medical Devices Implanted Type Area Junior Designer Device Identifier Shelf Expiration Date Model / Serial / Lot [employer] Excela Low Porfile Power Port 8fr 1.6mm 1 Lumen [id number] - [id number] Implanted:Qty: 1 on 05/06/2023 at [facility] [employer] 01/04/2028 [id number] / / [id number] Procedures Procedure Name Priority Date/Time Associated Diagnosis Comments SCAN - LABS 11/29/2024 8:42 AM CDT SCAN - LABS 11/28/2024 3:14 PM CDT POCT GLUCOSE DEVICE Routine 11/15/2024 8 :25 [...] SCAN - LABS 09/27/2024 2:52 PM CDT COLONOSCOPY 08/22/2024 9:46 AM CDT [...] Health Maintenance Results * SCAN - LABS (11/29/2024 8:42 AM CDT) Rachael Moncada RN Final Result * SCAN - LABS (11/28/2024 3:14 PM CDT) Rachael Moncada RN Edited Resul t - Final * POCT glucose (11/15/2024 8:25 AM CDT) Glucose, POC 149 70 - 199 mg/dL Blood 11/15/2024 8:25 AM CDT 11/15/2024 8:25 AM CDT Berenice Lemos MD PhD LAB POCT ORDERABLES - ANDRES CE Final Result Performing Organization Address City/State/[facility] Co de Phone Number [facility] Department [place] [address] * Surgical pathology (11/15/2024 7:48 AM CDT) Tissue (Skin, excision) 11/15/2024 7:48 AM CDT Narrative PATHOLOGY [facility] - 11/21/2024 1:27 PM CDT EPIC results best viewed via link to PDF [facility] of Surgical Pathology [facility] [place] [address] Note to Patients: This report may contain [...] Gender: F : 1955 (Age: 69) Address: [address] [place] [address] Hospital #: [id number] Taken:11/15/2024 Received:11/15/2024 Reported: 11/21/2024 Patient Type: [facility] Service: Surgery Location: Physician(s): Bernabe Cooper [...] Sections find fibrous and suppurative cut surfaces. Cut Off Saw Set Up Operator sections are submitted labeled A1. Jar 1. sxv/11/15/2024 11:17 PA(s): Peter Partida, MS, PA ([facility])CM By this signature, I attest that the above diagnosis is based upon my personal examination of the slides(and/or other material). Addenda/Procedures The performance characteristics of some immunohistochemical stains, fluorescence in-situ hybridization tests and immunophenotyping by flow cytometry cited in this report (if any) were determined by the Surgical Pathology and Flow Cytometry Departments at [facility] as part of an ongoing quality assurance monitor program and in compliance with federally mandated [...] Pathology and Flow Cytometry Departments of [facility]. It has not been cleared or approved by the U. S. Food and Drug Administration. IMAGES AND SCANNED DOCUMENTS, IF INCLUDED, ONLY VIEWABLE IN PDF VERSION OF REPORT Berenice Lemos MD PhD LAB PATHOLOGY ORDERABLES F inal Result PATHOLOGY [facility] 3rd Floor [place], [place] [phone] * POCT glucose (11/15/2024 7:10 AM CDT) Glucose, POC 167 70 - 199 mg/dL Blood 11/15/2024 7:10 AM CDT 11/15/2024 7:10 AM CDT Berenice Lemos MD PhD LAB POCT ORDERABLES - ANDRES CE Final Result Performing Organization Address City/[facility]/ZIP Co de Phone Number [facility] Department [place] [address] * SCAN - LABS (11/08/2024 10:11 PM CDT) us Rachael Moncada RN Final Result * SCAN - LABS (11/07/2024 11:17 AM CDT) us Rachael Moncada RN Final Result * SCAN - LABS (10/19/2024) us Rachael Moncada RN Edited Resul t - Final * SCAN - LABS (10/17/2024 4:57 PM CDT) us Rachael Moncada RN Edited Resul t - Final * SCAN - LABS (09/29/2024 11:14 AM CDT) us Rachael Moncada RN Edited Resul t - Final * (ABNORMAL) POCT glucose (09/28/2024 2:57 PM CDT) [facility] Glucose, POC 237(H) 70 - 199 mg/dL Blood 09/28/2024 2:57 PM CDT 09/28/2024 2:57 PM CDT Quynh Mims MD LAB POCT ORDERABLES - DEVICE Final Result [facility] Department [place] [address] * SCAN - LABS (09/28/2024 1:23 PM CDT) us Mirian Lund RN Final Result * SCAN - LABS (09/27/2024 2:52 PM CDT) us Rachael Moncada RN Final Result * Colonoscopy (08/22/2024 9:46 AM CDT) Anatomical Region Laterality Modality Other Narrative Procedure Note Darius Lindo MD - 08/22/2024 9:46 AM CDT GI ENDOSCOPY [facility] Patient Name: Rhonda Wiseman Procedure Date: 08/22/2024 9:46 AM Date of : 1955 Admit Type: Inpatient Age: 69 Gender: Female Attending MD: Darius Lindo M.D. Room: [facility] ENDOSCOPY ROOM 3 Note Status: [...] scope was passed under direct vision.The CF [id number] endoscope was introduced through the anus and advanced to the cecum, identified by appendiceal orifice and ileocecal valve. The bowel preparation used was GoLYTELY via split dose instruction. The quality of the bowel preparationwas evaluated using the BBPS (Micro Bowel Preparation Scale) with scores of: Right [...] clip was successfully placed (MR conditional). Clip city wellness coordinator: [employer]. There was no bleeding at the end [...] retrieved. Clip (MR conditional) was placed. Clip city wellness coordinator: [employer]. - One 14 mm polyp in the [...] BLOOD ORDERABLES Final Result Performing Organization Address [facility] de Phone Number [facility] [address] * (ABNORMAL) Hemoglobin A1c (08/20/2024 5:15 AM CDT) Pathologist [facility] Hgb A1C 7.0(H) 4.0 - 5.6 % Estimated Average Glucose 154 mg/dL [facility] Comment: The ADA recommends reporting an [...] BLOOD ORDERABLES Final Result Performing Organization Address [facility] Co de Phone Number [facility] [place] [employer] [place] [address] * (ABNORMAL) Lipid panel (08/19/2024 11:58 PM CDT) [facility] Cholesterol 91 30 - 199 mg/dL Comment: [...] on 2017. Triglycerides 99 <=149 mg/dL [facility] Comment: Interpretive Data Ages < [...] on 2017. HDL 30(L) >=40 mg/dL [facility] Comment: Interpretive Data Ages < [...] 2017. LDL, calculated 42 <=129 mg/dL [facility] Comment: Interpretive Data Ages < [...] revised on 2023. Non-HDL Cholesterol 61 mg/dL [facility] Comment: Interpretive Data Ages < or [...] last revised on 2017. Chol/HDL ratio 3 [facility] Blood 08/19/2024 11:5 8 PM CDT 08/20/2024 12:26 AM CDT Narrative [facility] - 08/20/2024 8:24 AM CDT reflex us Quynh Mims MD LAB BLOOD ORDERABLES Final Result [facility] Department [place] [address] * DIAGNOSTIC MAMMOGRAM BILATERAL W [place] (08/01/2024 [...] RIGHT breast was performed by a trained rinkman and by Dr. Hampton . BREAST PARENCHYMAL [...] RIGHT breast was performed by a trained rinkman and by Dr. Hampton . BREAST PARENCHYMAL [...] it. Electronically signed by: Efrain Hampton MD [facility] Mims MD IMG MAMMO PROCEDURES Final Result from Last 3 Months or Most Recently Relevant to Health Maintenance Insurance [facility] IDMD MEDICARE IDPA Advance Directives For more information, please contact: [phone] * Full Code (Latest Code Status on File) Date Activated Date Inactivated Comments 08/19/2024 1:31 PM 08/22/2024 6:55 PM * Full Code Date Activated Date Inactivated Comments 10/23/2023 7:57 AM 10/23/2023 1:38 PM Care Teams R Developer Relationship Specialty Start Date End Date Andrea Chandler MD PCP - General Internal Medicine 03/31/23
--- OUTSIDE RECORDS SUMMARY | 2024-12-19 10:41 | XMS_ITS | Clinical Summary ---
Author Organization 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 A 5 mm ground-glass nodule [...] as described above. Narrative 04/13/2019 9:43 AM ENVIRONMENTAL AIDE EXAM DESCRIPTION: CT CHEST W/O CONTRAST REASON [...] Rojelio Yun M.D. RL: DEVIN Report ID: [id number] Reading Location: [id number] Procedure Note Rojelio Yun MD - 04/13/2019 [...] Rojelio Yun M.D. RL: DEVIN Report ID: [id number] Reading Location: [id number] IMPRESSION: 1. A 5 mm ground-glass nodule [...] Insurance MEDICAID BLUE CROSS [place] Care Teams Academic Records Specialist Relationship Specialty Start Date End Date Emery Higgins DO [address] [place] [address] PCP - General Internal Medicine 07/13/18
[2024-12-19 10:54] LABS: Hematocrit 34.6 % (35.0-42.0); Hemoglobin 10.0 g/dL (11.7-13.8); Immature Granulocyte Percent A 0.6 % (0.0-0.0); Lymphocytes Absolute Auto 2.61 K/mm3 (1.10-4.50); Mean Corpuscular HGB Conc 28.9 g/dL (32-36); Mean Corpuscular Hemoglobin 21.3 pg (27.0-31.0); Mean Corpuscular Volume 73.8 fL (78.0-102.0); Nucleated Red Blood Cells Absolute Auto 0.00 K/mm3 (0.00-0.00); Nucleated Red Blood Cells Perc 0.0 % (0-0.0); Platelet Count Result 255 K/mm3 (150-420); Red Blood Count 4.69 M/mm3 (4.20-5.40); White Blood Count 11.5 K/mm3 (4.8-10.8)
[2024-12-19 11:10] LABS: Alanine Aminotransferase 15 U/L (6-35); Albumin Level 4.0 g/dL (3.5-5.1); Alkaline Phosphatase 68 U/L (38-126); Anion Gap 6 mmol/L (4-12); Aspartate Amino Transferase 22 U/L (14-36); Bilirubin,Total 0.4 mg/dL (0.2-1.3); Blood Urea Nitrogen 14 mg/dL (7-17); Calcium 9.4 mg/dL (8.4-10.2); Carbon Dioxide 23 mmol/L (22-30); Chloride 111 mmol/L (98-107); Estimated Glomerular Filt Rate > 60; Glucose 154 mg/dL (65-110); Magnesium 1.9 mg/dL (1.6-2.3); Osmolality Calculated 293 mOsm/kg (285-295); Potassium 4.0 mmol/L (3.4-5.0); Sodium 140 mmol/L (137-145); Total Protein 6.3 g/dL (6.3-8.2)
[2024-12-19 11:41] LABS: Thyroid Stimulating Hormone 1.740 uIU/mL (0.465-4.680)
== END 2024-12-19 10:29 | disposition home or self-care (01) ==
LOC: CHSLAB 10:31
PROVIDERS: PCP Internal Medicine
DX: C54.1 Malignant neoplasm of endometrium (principal); E11.9 Type 2 diabetes mellitus without complications
CPT/HCPCS: 36415; 80053; 83735; 84443; 85025; 86304

== ENCOUNTER 2025-01-10 08:30 | Outpatient (CLI) | payer MEDICARE, SELFPAY ==
--- OUTSIDE RECORDS SUMMARY | 2025-01-10 08:38 | XMS_ITS | Clinical Summary ---
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
--- OUTSIDE RECORDS SUMMARY | 2025-01-10 08:38 | XMS_ITS | Encounter Summary ---
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
--- OUTSIDE RECORDS SUMMARY | 2025-01-10 08:38 | XMS_ITS ---
Author Organization [facility] [address] Address [address] [place] [address] Care Team Providers Care Shoe Treer Name Role Phone Andrea Chandler MD Primary Care Provider [phone] Active Problems Problem Noted Date Diagnosed Date [...] medications scheduled. Pembrolizumab 21 Day Cycles - MERGERS AND ACQUISITIONS ATTORNEY (Carbo Completed)* Plan Start Date:04/30/2023 Plan Provider:Quynh Mims MD Linked Problems Endometrial cancer Treatment Medications Current Day (Day 1 , Cycle 28 - Planned for 01/11/2025) Next Day (Day 1, Cycle 29 - Planned for 02/01/2025) CARBOplatin (PARAPLATIN) IVP B in 250 mL [...] 1 mGy 1 mGy 0 mGy DLP 4,378 mGycm 4,378 mGycm 0 mGycm
--- OUTSIDE RECORDS SUMMARY | 2025-01-10 08:38 | XMS_ITS | Clinical Summary ---
Author Organization [facility] [place] [address] Address [address] [place] [address] Care Team Providers Care Hand Ironer Name Role Phone Andrea Chandler MD Primary Care Provider [phone] Allergies Active Allergy Reactions Criticality Noted Date [...] 4 of each cycle. 9 tablet 1 12/25/2 023 Active neomycin (MYCIFRADIN) 500 mg tablet Take 2 tablets at 1 PM, 2 PM, and 10 PM the day before surgery. 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 Active acetaminophen (TYLENOL) 500 mg [...] Encounters Date Type Department Care Team Description 01/05/2025 Telephone [facility] [address] [phone] Karrie Williamson RN 01/02/2025 10:57 AM CDT - 01/02/2025 11:59 PM CDT Hospital Encounter [facility] ([facility]) [address] [place] [address] Discharge Disposition: Discharge to home or self care 01/02/2025 10:56 AM CDT - 01/02/2025 11:59 PM CDT Hospital Encounter [facility] ([facility]) [address] [place] [address] Endometrial cancer; Lung nodule Discharge Disposition: Discharge to home or self care 12/30/2024 Telephone [facility] [address] [facility] 2nd Floor [address] [place] [address] Kaylin Floyd LPN 12/22/2024 Results Follow-Up [facility]ne[facility] [address] [place] [address] Advanced Medicine 13th [place] [address] [place] [address] Chest Abdomen Pelvis W Contrast 12/22/2024 Orders Only [facility] [address] [facility] Advanced Medicine 13th [place] [address] Rachael Moncada RN Lung nodule (Primary Dx); Endometrial cancer; Encounter for preprocedural laboratory examination 12/21/2024 10:00 AM CDT [facility] ([facility]) [address] [place] [id number] Peritoneal carcinomatosis (HCC) (Primary Dx); Endometrial cancer 12/21/2024 7:25 AM CDT - 12/21/2024 11:59 PM CDT Hospital Encounter [facility] ([facility]) [address] [place] [address] Quynh Mims MD Encounter for antineoplastic chemotherapy; Endometrial cancer; Elevated CA-125 Discharge Disposition: Discharge to home or self care 12/20/2024 Orders Only [facility] ON[facility] Rachael Moncada RN Endometrial cancer (Primary Dx) 12/19/2024 8:30 AM CDT Office Visit [facility] Gastro[facility]ology [address] [facility] 12th [place] [address] [place] [address] Lou Beltran PA Epigastric pain (Primary Dx); Constipation, unspecified constipation type; Rectal bleeding; History of colon polyps; Family history of colon cancer; Endometrial cancer 12/19/2024 Orders Only Rachael Sena RN 12/05/2024 4:15 PM CDT Office Visit [facility] [address] [facility] Floor 8 [place] [address] ShalinitBerenice MD PhD Mucinous adenocarcinoma (HCC) (Primary Dx); Mammogram abnormal 11/30/2024 1:00 PM CDT [facility] ([facility]) [address] [place] [address] Peritoneal carcinomatosis (HCC) (Primary Dx); Endometrial cancer (HCC) 11/30/2024 10:15 AM CDT Office Visit [facility] [address] [place] [address] 13th [place] [address] [place] [address] Quynh Mims MD Endometrial cancer (HCC) 11/29/2024 Orders Only Rachael Sena RN Endometrial cancer (HCC) (Primary Dx); Encounter for antineoplastic chemotherapy; Elevated CA-125 11/28/2024 Orders Only Rachael Sena RN 11/15/2024 7:30 AM CDT - 11/15/2024 8:25 AM CDT Surgery [facility] ([facility]) [address] [place] [address] Berenice Lemos MD PhD INCISION AND DRAINAGE - BREAST 11/15/2024 7:22 AM CDT Anesthesia Event [facility] ([facility]) [address] [place] [address] Josias Parikh MD Deibel, Lori, NP 11/15/2024 5:17 AM CDT - 11/15/2024 9:06 AM CDT Hospital Encounter [facility] ([facility]) [address] [place] [address] Aft, Berenice Sotomayor MD PhD Abscess of right breast Discharge Disposition: Discharge to home or self care 11/09/2024 8:30 AM CDT Office Visit [facility] [address] [facility] Advanced Medicine 13th [place] [address] [place] [address] Sarah Casillas MD Endometrial cancer (HCC) 11/08/2024 Orders Only [facility] Rachael Moncada RN 11/07/2024 Orders Only [facility] Rachael Moncada RN Endometrial cancer (HCC) (Primary Dx) 10/19/2024 1:00 PM CDT Infusion [facility] Gynecologic Oncology [facility] ([facility]) [address] [place] [address] Peritoneal carcinomatosis (HCC) (Primary Dx); Endometrial cancer (HCC) 10/19/2024 Orders Only [facility] Rachael Mocnada RN Endometrial cancer (HCC) (Primary Dx) 10/17/2024 Orders Only [facility] Rachael Moncada, [...] disease) Type 2 diabetes mellitus Hypothyroidism Overweight Epigastric pain Colon polyp Family History Medical History Relation Name Comments Colon cancer Brother Lung cancer Father Kidney cancer Neg Hx Ovarian cancer Neg Hx Uterine cancer Neg Hx Relation Name Status Comments Brother Father Social History Tobacco Use Types Packs/Day Years Used Date Smoking Tobacco: Every Day Cigarettes 1.5 49.7 Started: 1975 Passive Smoke Exposure: Current Smokeless [...] the money to buy more. Never true 12/22/19 25 Within the past 12 months, t he food you bought just didn't last and you didn't have money to get more. Never true 12/21/2024 Personal Safety Answer Date Recorded Have you ever been in or are you currently in a harmful physical or emotional relationship or is someone making you feel afraid or unsafe? 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 Gender Identity Not on file Sexual Orientation Not on file Obstetrics History Para Term AB IAB SAB Ectopic Multiple Livin g Live Births 1 1 Date Outcome GA Total Labor Labor/2nd/3rd Weight Sex Type Anes PTL Perla A1 A5 Name Clin Para Comments x1 Last Filed Vital Signs Vital Sign Reading Time Taken Comments Blood Pressure 144/81 12/21/2024 9:57 AM CDT Pulse 80 12/21/2024 9:57 AM CDT Temperature 36.9 C (98.4 F) 12/21/2024 9:57 AM CDT Respiratory Rate 16 12/21/2024 9:57 AM CDT Oxygen Saturation 100% 12/21/2024 9:57 AM CDT Inhaled Oxygen Concentration - - Weight 82.9 kg (182 lb 12.8 oz) 12/21/2024 9:55 AM CDT Height 160.1 cm (5' 3.03) 12/19/2024 8:09 AM CD T Body Mass Index 32.35 12/19/2024 8:09 AM CDT Plan of Treatment [...] Visit 65+ 2022 Covid-19 Vaccine ( - 2024-2 6 season) 2025 04/26/2021, 08/14/2020, 07/17/2020 Influenza Vaccine (#1) 2025 , 02/11/2022, 01/31/2019, Additional history exists Hemoglobin A1C 02/19/2025 08/20/2024, 05/0 01/2024, 04/17/2023 Breast Cancer Screening-Mammogram 08/01/2025 025 Lipid Panel 08/19/2025 08/19/2024 eGFR 08/21/2025 08/21/2024, 08/09, 08/19/2024, Additional history exists Fall Risk Assessment 11/15/2025 11/15/2024 Colon Cancer Screening-Colonoscopy 08/22/20342024, 10/23/2023 Medical Devices Implanted Type Area Food Trades Assistants Device Identifier Shelf Expiration Date Model / Serial / Lot [employer] Excela Low Porfile Power Port 8fr 1.6mm 1 Lumen [id number] - [id number] Implanted:Qty: 1 on 05/06/2023 at [facility] [employer] 01/04/2028 [id number] / / [id number] Procedures Procedure Name Priority Date/Time Associated Diagnosis Comments PET/CT FDG SKULL TO THIGH Schedule Routine, Read Routine (OP Routine) 01/02/2025 1:28 PM CDT Endometrial cancer Lung nodule CT CHEST ABDOMEN PELVIS W CONTRAST Routine 12/21/2024 9:33 AM CDT Encounter for antineoplastic chemotherapy Endometrial cancer Elevated CA-125 SCAN - LABS 12/20/2024 8:43 AM CDT SCAN - LABS 12/19/2024 4:12 PM CDT SCAN - LABS 11/29/2024 8:42 AM CDT SCAN - LABS 11/28/2024 3:14 PM CDT POCT GLUCOSE DEVICE Routine 11/15/2024 8:25 AM CDT SURGICAL PATHOLOGY Routine 11/15/2024 7: 48 AM CDT Abscess of right breast INCISION AND DRAINAGE - BREAST 11/15/2024 7:28 AM CDT Abscess of right breast POCT GLUCOSE DEVICE Routine 11/15/2024 7:10 AM CDT SCAN - LABS 11/08/2024 10:11 PM CDT SCAN - LABS 11/07/2024 11:17 AM CDT SCAN - LABS 10/19/2024 SCAN - LABS 10/17/2024 4:57 PM CDT COLONOSCOPY 08/22/2024 9:46 AM CDT EGFR Routine 08/21/2024 9:04 PM CDT HEMOGLOBIN A1C STAT 08/20/2024 5:15 AM CDT LIPID PANEL Routine 08/19/2024 11:58 PM CDT DIAGNOSTIC MAMMOGRAM BILATERAL W [place] Schedule Routine, Read Routine (OP Routine) 08/01/2024 2:23 PM CDT Endometrial cancer (HCC) Abnormal breast finding from Last 3 Months or Most Recently Relevant to Health Maintenance Results * PET/CT FDG Skull to Thigh (01/02/2025 1:28 PM CDT) Anatomical Region Laterality Modality N/A Positron Emissio n Tomography (PET) 01/02/2025 2:12 PM CDT Impressions 01/02/2025 3:39 PM CDT 1. Hypermetabolic endometrial lesion, in keeping with recurrent/progressive disease compared to prior PET/CT. 2. Omental nodularity/carcinomatosis noted.. 3. Hypermetabolic right lower lobe nodule, most consistent with pulmonary metastasis. 4. Subareolar FDG uptake, in keeping with sequela of right breast abscess and changes of incision/drainage. 5. Scattered groundglass sub-5 mm pulmonary nodules are subthreshold for PET evaluation and may be infectious or inflammatory. Continued attention on follow-up is recommended. Dictated by: Thony Arnold M.D. The radiology attending physician has personally reviewed this study, and had reviewed and/or edited this written report and agrees with it. Electronically signed by: DO Niecy Ruth 01/02/2025 3:39 PM CDT EXAMINATION: TUMOR FDG-PET/CT IMAGING DATE OF STUDY: 01/02/2025 SCANNER: [facility] Whereoscope (NV1). This is a high-resolution scanner, which can result in higher SUVs (and even detection of previously unrecognized small lesions) compared to older scanners. RADIOPHARMACEUTICAL: 15.8 mCi F-18 Fluorodeoxyglucose (FDG) i.v. 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 Currently being treated with Megace, Letrozole, and pembrolizumab. The study is requested for treatment monitoring during therapy. Subsequent treatment strategy. TECHNIQUE: The patient's fasting blood glucose level, measured by glucometer before injection of FDG, was 161 mg/dL. After intravenous administration of FDG, noncontrast CT images were obtained for attenuation correction and for fusion with emission PET images to allow for anatomical localization of PET findings. Emission PET images were then obtained. The study was interpreted on the [employer] workstation. The mean liver SUV (reported for quality assurance monitor purposes) is 2.9. The total scanned area was skull base to proximal thighs. Images of the body were obtained starting 59 minutes after injection of tracer. All reported SUVs are maximum SUVs, unless otherwise specified. COMPARISON: CT from 12/21/2024; PET/CT 09/16/2023 DESCRIPTORS OF LESION FDG AVIDITY: Minimal: <= blood pool Mild: > blood pool and <= liver Moderate: > liver and <= 2x SUVmax liver Moderate to marked: >2x SUVmax liver and <= 3x SUVmax liver Marked: > 3x SUVmax liver FINDINGS: Hypermetabolic, ill-defined endometrial lesion with SUV of 14.8 (228/300) measuring approximately 3.2 x 2.7 cm. Given the appearance on PET and correlative CT, this is consistent with recurrent malignancy. Hypermetabolic right lower lobe pulmonary nodule measuring 0.8 cm with SUV of 5.2. This is consistent with metastatic disease. Omental nodularity in the left hemiabdomen without substantial associated FDG uptake, concerning for malignant omental implants.. Mildly hypermetabolic right 2nd mandibular lymph node (56/300), likely reactive. Subareolar uptake in the right breast, likely some combination of infectious sequela of known right breast abscess and postprocedural change of incision and drainage. Mild subcutaneous cutaneous uptake in the right abdomen, which is unchanged from prior and could represent post injection change. Tiny cutaneous focus of mild uptake in the left upper back (63/300) associated with mild stranding. The most FDG-avid lesion is in the endometrium, has a maximum SUV of 14.8, and approximate axial dimensions of 3.2 x [address] findings: Bilateral lens replacements. Carotid artery calcifications. Right chest wall port catheter with tip terminating at the superior vena cava. Coronary artery calcifications. Surgically absent gallbladder. Left adrenal adenoma. Scattered groundglass sub-5 mm peripheral pulmonary nodules, likely infectious or inflammatory. Diverticulosis without diverticulitis. Aortoiliac atherosclerosis without aneurysmal dilatation of the abdominal aorta. Left renal cyst. Superior endplate compression deformity at T1. Degenerative changes of the spine. Procedure Note Andrez Solis DO - 01/02/2025 EXAMINATION: TUMOR FDG-PET/CT IMAGING DATE OF STUDY: 01/02/2025 SCANNER: [facility] [employer] (NV1). This is a high-resolution scanner, which can result in higher SUVs (and even detection of previously unrecognized small lesions) compared to older scanners. RADIOPHARMACEUTICAL: 15.8 mCi F-18 Fluorodeoxyglucose (FDG) i.v. 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 Currently being treated with Megace, Letrozole, and pembrolizumab. The study is requested for treatment monitoring during therapy. Subsequent treatment strategy. TECHNIQUE: The patient's fasting blood glucose level, measured by glucometer before injection of FDG, was 161 mg/dL. After intravenous administration of FDG, noncontrast CT images were obtained for attenuation correction and for fusion with emission PET images to allow for anatomical localization of PET findings. Emission PET images were then obtained. The study was interpreted on the [employer] workstation. The mean liver SUV (reported for quality assurance monitor purposes) is 2.9. The total scanned area was skull base to proximal thighs. Images of the body were obtained starting 59 minutes after injection of tracer. All reported SUVs are maximum SUVs, unless otherwise specified. COMPARISON: CT from 12/21/2024; PET/CT 09/16/2023 DESCRIPTORS OF LESION FDG AVIDITY: Minimal: <= blood pool Mild: > blood pool and <= liver Moderate: > liver and <= 2x SUVmax liver Moderate to marked: >2x SUVmax liver and <= 3x SUVmax liver Marked: > 3x SUVmax liver FINDINGS: Hypermetabolic, ill-defined endometrial lesion with SUV of 14.8 (228/300) measuring approximately 3.2 x 2.7 cm. Given the appearance on PET and correlative CT, this is consistent with recurrent malignancy. Hypermetabolic right lower lobe pulmonary nodule measuring 0.8 cm with SUV of 5.2. This is consistent with metastatic disease. Omental nodularity in the left hemiabdomen without substantial associated FDG uptake, concerning for malignant omental implants.. Mildly hypermetabolic right 2nd mandibular lymph node (56/300), likely reactive. Subareolar uptake in the right breast, likely some combination of infectious sequela of known right breast abscess and postprocedural change of incision and drainage. Mild subcutaneous cutaneous uptake in the right abdomen, which is unchanged from prior and could represent post injection change. Tiny cutaneous focus of mild uptake in the left upper back (63/300) associated with mild stranding. The most FDG-avid lesion is in the endometrium, has a maximum SUV of 14.8, and approximate axial dimensions of 3.2 x [address] findings: Bilateral lens replacements. Carotid artery calcifications. Right chest wall port catheter with tip terminating at the superior vena cava. Coronary artery calcifications. Surgically absent gallbladder. Left adrenal adenoma. Scattered groundglass sub-5 mm peripheral pulmonary nodules, likely infectious or inflammatory. Diverticulosis without diverticulitis. Aortoiliac atherosclerosis without aneurysmal dilatation of the abdominal aorta. Left renal cyst. Superior endplate compression deformity at T1. Degenerative changes of the spine. IMPRESSION: 1. Hypermetabolic endometrial lesion, in keeping with recurrent/progressive disease compared to prior PET/CT. 2. Omental nodularity/carcinomatosis noted.. 3. Hypermetabolic right lower lobe nodule, most consistent with pulmonary metastasis. 4. Subareolar FDG uptake, in keeping with sequela of right breast abscess and changes of incision/drainage. 5. Scattered groundglass sub-5 mm pulmonary nodules are subthreshold for PET evaluation and may be infectious or inflammatory. Continued attention on follow-up is recommended. Dictated by: Thony Arnold M.D. The radiology attending physician has personally reviewed this study, and had reviewed and/or edited this written report and agrees with it. Electronically signed by: Andrez Solis DO us Quynh Mims MD IMG PET PROCEDURES F inal Result * CT Chest Abdomen Pelvis W Contrast (12/21/2024 9:33 AM CDT) Anatomical Region Laterality Modality Body N/A Computed Tomogra phy 12/21/2024 10:1 7 AM CDT Impressions 12/21/2024 11:28 AM CDT 1. Enlarging solid pulmonary nodule in the right lower lobe is suspicious for pulmonary metastasis. There are also indeterminate groundglass nodules in the bilateral lobes, one of which is new from prior. 2. Suspected increase in size of the primary endometrial mass. Persistent soft tissue tethering of the rectum and extension into the right ovary. 3. Stable omental/peritoneal carcinomatosis. Dictated by: Bart Richards MD The radiology attending physician has personally reviewed this study, and had reviewed and/or edited this written report and agrees with it. Electronically signed by: Yolanda Stratton M.D. Narrative 12/21/2024 11:28 AM CDT EXAMINATION: Computed tomography of the chest, abdomen and pelvis with intravenous contrast HISTORY: Endometrial cancer TECHNIQUE: Transaxial computed tomographic images of the chest, abdomen and pelvis were obtained with intravenous contrast according to the standard protocol after the uneventful administration of 100 mL Opti-Ray 350 intravenous contrast. COMPARISON: CT 08/19/2024, CT 07/06/2024, and MRI 08/21/2024 FINDINGS: Chest: There is a right internal jugular port catheter with tip in the superior vena cava. The heart size is normal. There is no pericardial effusion. The thoracic aorta is normal in caliber. There is no new thoracic lymphadenopathy. Note is made of an unchanged subcentimeter cardiophrenic node. 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 Atrophic thyroid. The central airways are normal in caliber. There is no consolidation, pleural effusion, or pneumothorax. There is an unchanged right lower lobe groundglass nodule measuring 4 mm on series 5 image 113. There is a new groundglass nodule in the left lower lobe on series 5 image 107 measuring 6 mm. There is a solid pulmonary nodule in the right lower lobe on series 5 image 72 measuring 8 mm which is increased in size from 07/06/2024 and new from 03/23/2024. There is subtle centrilobular groundglass nodularity peripherally in both lungs which may reflect a background of respiratory bronchiolitis given the patient's smoking history. Abdomen/Pelvis: No suspicious focal liver lesion. The portal, superior mesenteric, and splenic veins are patent. The gallbladder surgically absent. Mild prominence of the extrahepatic and intrahepatic bile ducts is likely related to reservoir effect. The spleen is normal. The right adrenal gland is normal. There is an unchanged left adrenal nodule measuring approximately 1.9 cm. The pancreas is normal. The kidneys enhance symmetrically. There is no hydronephrosis. There are multiple left renal cysts. Renal vascular calcifications. The bladder is unremarkable. The uterus is present. There is persistent masslike endometrial thickening corresponding to known endometrial cancer. This is not optimally assessed on this modality, but appears increased in size compared to the prior examination, measuring approximately 3.5 x 3.4 cm in axial dimension compared to 2.6 x 2.6 cm previously. There is persistent tethering of the rectum posteriorly. Enhancement also appears to extend into the right ovary (series 2 image 248), which is more conspicuous than on prior CT but was noted on MRI. Small and large bowel are normal in caliber without evidence of obstruction. There is colonic diverticulosis. No ascites. No pneumoperitoneum. The abdominal aorta is severely atherosclerotic but not aneurysmal. There is no abdominopelvic lymphadenopathy. There is omental/peritoneal carcinomatosis which is similar to the prior examination accounting for differences in positioning. For reference, an omental deposit in the left upper quadrant on series 3 image 24 measures up to 4.3 cm, similar to the prior examination. Sequela of medication injections in the right anterior abdominal wall. No suspicious lytic or blastic lesion. Unchanged T1 superior plate compression deformity. Procedure Note Yolanda Stratton MD - 12/21/2024 EXAMINATION: Computed tomography of the chest, abdomen and pelvis with intravenous contrast HISTORY: Endometrial cancer TECHNIQUE: Transaxial computed tomographic images of the chest, abdomen and pelvis were obtained with intravenous contrast according to the standard protocol after the uneventful administration of 100 mL Opti-Ray 350 intravenous contrast. COMPARISON: CT 08/19/2024, CT 07/06/2024, and MRI 08/21/2024 FINDINGS: Chest: There is a right internal jugular port catheter with tip in the superior vena cava. The heart size is normal. There is no pericardial effusion. The thoracic aorta is normal in caliber. There is no new thoracic lymphadenopathy. Note is made of an unchanged subcentimeter cardiophrenic node. 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 Atrophic thyroid. The central airways are normal in caliber. There is no consolidation, pleural effusion, or pneumothorax. There is an unchanged right lower lobe groundglass nodule measuring 4 mm on series 5 image 113. There is a new groundglass nodule in the left lower lobe on series 5 image 107 measuring 6 mm. There is a solid pulmonary nodule in the right lower lobe on series 5 image 72 measuring 8 mm which is increased in size from 07/06/2024 and new from 03/23/2024. There is subtle centrilobular groundglass nodularity peripherally in both lungs which may reflect a background of respiratory bronchiolitis given the patient's smoking history. Abdomen/Pelvis: No suspicious focal liver lesion. The portal, superior mesenteric, and splenic veins are patent. The gallbladder surgically absent. Mild prominence of the extrahepatic and intrahepatic bile ducts is likely related to reservoir effect. The spleen is normal. The right adrenal gland is normal. There is an unchanged left adrenal nodule measuring approximately 1.9 cm. The pancreas is normal. The kidneys enhance symmetrically. There is no hydronephrosis. There are multiple left renal cysts. Renal vascular calcifications. The bladder is unremarkable. The uterus is present. There is persistent masslike endometrial thickening corresponding to known endometrial cancer. This is not optimally assessed on this modality, but appears increased in size compared to the prior examination, measuring approximately 3.5 x 3.4 cm in axial dimension compared to 2.6 x 2.6 cm previously. There is persistent tethering of the rectum posteriorly. Enhancement also appears to extend into the right ovary (series 2 image 248), which is more conspicuous than on prior CT but was noted on MRI. Small and large bowel are normal in caliber without evidence of obstruction. There is colonic diverticulosis. No ascites. No pneumoperitoneum. The abdominal aorta is severely atherosclerotic but not aneurysmal. There is no abdominopelvic lymphadenopathy. There is omental/peritoneal carcinomatosis which is similar to the prior examination accounting for differences in positioning. For reference, an omental deposit in the left upper quadrant on series 3 image 24 measures up to 4.3 cm, similar to the prior examination. Sequela of medication injections in the right anterior abdominal wall. No suspicious lytic or blastic lesion. Unchanged T1 superior plate compression deformity. IMPRESSION: 1. Enlarging solid pulmonary nodule in the right lower lobe is suspicious for pulmonary metastasis. There are also indeterminate groundglass nodules in the bilateral lobes, one of which is new from prior. 2. Suspected increase in size of the primary endometrial mass. Persistent soft tissue tethering of the rectum and extension into the right ovary. 3. Stable omental/peritoneal carcinomatosis. Dictated by: Bart Richards MD The radiology attending physician has personally reviewed this study, and had reviewed and/or edited this written report and agrees with it. Electronically signed by: Yolanda Stratton M.D. Quynh Mims MD IMG CT PROCEDURES Fi nal Result * SCAN - LABS (12/20/2024 8:43 AM CDT) Rachael Moncada RN Final Result * SCAN - LABS (12/19/2024 4:12 PM CDT) Rachael Moncada RN Edited Resul t - Final * SCAN - LABS (11/29/2024 8:42 AM CDT) Rachael Moncada RN Final Result * SCAN - LABS (11/28/2024 3:14 PM CDT) Rachael Moncada RN Edited Resul t - Final * POCT glucose (11/15/2024 8:25 AM CDT) Glucose, POC 149 70 - 199 mg/dL Blood 11/15/2024 8:25 AM CDT 11/15/2024 8:25 AM CDT Result [facility] Berenice Lemos MD PhD LAB POCT ORDERABLES - ANDRES CE Final Result Performing Organization Address City/State/[facility] Co de Phone Number [facility] Department [place] [address] * Surgical pathology (11/15/2024 7:48 AM CDT) Tissue (Skin, excision) 11/15/2024 7:48 AM CDT Narrative PATHOLOGY [facility] - 11/21/2024 1:27 PM CDT EPIC results best viewed via link to PDF [facility] [place] [address] Note to Patients: This report may contain [...] Gender: F : 1955 (Age: 69) Address: [address] [place] [id number] [facility] #: [id number] Taken:11/15/2024 Received:11/15/2024 Reported: 11/21/2024 Patient Type: [facility] Service: Surgery Location: Physician(s): Bernabe Cooper M.D. [...] Sections find fibrous and suppurative cut surfaces. Bioengineer sections are submitted labeled A1. Jar 1. sxv/11/15/2024 11:17 PA(s): Peter Partida MS, PA ([facility])CM By this signature, I attest that the above diagnosis is based upon my personal examination of the slides(and/or other material). Addenda/Procedures The performance characteristics of some immunohistochemical stains, fluorescence in-situ hybridization tests and immunophenotyping by flow cytometry cited in this report (if any) were determined by the Surgical Pathology and Flow Cytometry Departments at [facility] as part of an ongoing vendor quality supervisor program and in compliance with federally mandated [...] Surgical Pathology and Flow Cytometry Departments of [facility]. It has not been cleared or approved by the U. S. Food and Drug Administration. IMAGES AND SCANNED DOCUMENTS, IF INCLUDED, ONLY VIEWABLE IN PDF VERSION OF REPORT us Berenice Lemos MD PhD LAB PATHOLOGY ORDERABLES F inal Result PATHOLOGY [facility] 3rd Floor [place], [place] [phone] * POCT glucose (11/15/2024 7:10 AM CDT) Glucose, POC 167 70 - 199 mg/dL Blood 11/15/2024 7:10 AM CDT 11/15/2024 7:10 AM CDT us Berenice Lemos MD PhD LAB POCT ORDERABLES - ANDRES CE Final Result [facility] Department [place] [address] * SCAN - LABS (11/08/2024 10:11 PM CDT) Rachael Moncada RN Final Result * SCAN - LABS (11/07/2024 11:17 AM CDT) Rachael Moncada RN Final Result * SCAN - LABS (10/19/2024) Rachael Moncada RN Edited Resul t - Final * SCAN - LABS (10/17/2024 4:57 PM CDT) Rachael Moncada RN Edited Resul t - Final * Colonoscopy (08/22/2024 9:46 AM CDT) Anatomical Region Laterality Modality Other Narrative Procedure Note Darius Lindo MD - 08/22/2024 9:46 AM CDT [facility] ENDOSCOPY [facility] Patient Name: Rhonda Wiseman Procedure Date: 08/22/2024 9:46 AM Date of : 1955 Admit Type: Inpatient Age: 69 Gender: Female Attending MD: Darius Lindo M.D. Room: [facility] ENDOSCOPY ROOM 3 Note Status: [...] scope was passed under direct vision.The CF [id number] endoscope was introduced through the anus and advanced to the cecum, identified by appendiceal orifice and ileocecal valve. The bowel preparation used was GoLYTELY via split dose instruction. The quality of the bowel preparationwas evaluated using the BBPS ([place] Bowel Preparation Scale) with scores of: Right [...] clip was successfully placed (MR conditional). Clip delivery architect: [place]inks[place]. There was no bleeding at the end [...] retrieved. Clip (MR conditional) was placed. Clip delivery architect: ithinksport. - One 14 mm polyp in the [...] Mims MD LAB BLOOD ORDERABLES Final Result [facility] Department [place] [address] * (ABNORMAL) Hemoglobin A1c (08/20/2024 5:15 AM CDT) Hgb A1C 7.0(H) 4.0 - 5.6 % Estimated Average Glucose 154 mg/dL KRYSTYNA ORTIZ Comment: The ADA recommends [...] Mims MD LAB BLOOD ORDERABLES Final Result [facility] Department [place] [address] * (ABNORMAL) Lipid panel (08/19/2024 11:58 PM [...] on 2017. Triglycerides 99 <=149 mg/dL KRYSTYNA ORTIZ Comment: Interpretive Data Ages < or = [...] on 2017. HDL 30(L) >=40 mg/dL KRYSTYNA ORTIZ Comment: Interpretive Data Ages < or = [...] on 2017. LDL, calculated 42 <=129 mg/dL [facility] Comment: Interpretive Data Ages < [...] revised on 2023. Non-HDL Cholesterol 61 mg/dL [facility] Comment: Interpretive Data Ages < or = [...] last revised on 2017. Chol/HDL ratio 3 [facility] Blood 08/19/2024 11:5 8 PM CDT 08/20/2024 12:26 AM CDT Narrative KRYSTYNA ORTIZ - 08/20/2024 8:24 AM CDT reflex us Quynh Mims MD LAB BLOOD ORDERABLES Final Result KRYSTYNA ORTIZ [facility] Department [place] [address] * DIAGNOSTIC MAMMOGRAM BILATERAL W [place] (08/01/2024 [...] RIGHT breast was performed by a trained line staker and by Dr. Hampton . BREAST PARENCHYMAL [...] RIGHT breast was performed by a trained line staker and by Dr. Hampton . BREAST PARENCHYMAL [...] Maintenance Insurance [facility] MEDICARE [facility] MEDICARE IDPA Advance Directives For more information, please contact: [phone] * Full Code (Latest Code Status on File) Date Activated Date Inactivated Comments 08/19/2024 1:31 PM 08/22/2024 6:55 PM * Full Code Date Activated Date Inactivated Comments 10/23/2023 7:57 AM 10/23/2023 1:38 PM Care Teams Hand Ironer Relationship Specialty Start Date End Date Andrea Chandler MD PCP - General Internal Medicine 03/31/23
--- OUTSIDE RECORDS SUMMARY | 2025-01-10 08:38 | XMS_ITS | Patient Health Record ---
Author Organization [facility] Address [address] [place] [address] Care Team Providers Care Laborer Orchard Name Role Phone Madeline Benton Primary Care [...] Insured Coverage Start Date Coverage End Date [place] Blue [place] Blue [facility] [address] [place] [id number] Arti Corrigan Self - patient is the insured [employer] [place] [address] [place] [address] [phone] [id number] Arti Corrigan Self - patient is the insured Medical (General) History Medical History History ICD Code high blood pressure diabetes Surgical History Surgery Date(Month/Year) tonsils removed galbladder removed thumb
--- OUTSIDE RECORDS SUMMARY | 2025-01-10 08:38 | XMS_ITS | Clinical Summary ---
Author Organization [facility] Address [address] [address] Phone Care Team Providers Care Field Irrigation Worker Name Role Phone ShawnEmery squires Marian GRIFFIN Primary Care Provider [phone] Allergies No known active allergies Medications metFORMIN [...] on file Legal Sex Female 10:16 AM SUBSTANCE ABUSE NURSE Gender Identity Not on file Sexual Orientation [...] (1 of 2) 2007 Influenza Immunization (#1) 01/09/202501/10, 03/08/2018 SARS-COV-2 Immunization ( season) 2025 04/26/2021, 08/14/2020, 07/17/2020 Colonoscopy 09/13/2028 09/13/2018, 08/26/2018 [...] CHEST W/O CONTRAST Routine 04/13/2019 9:22 AM SUBSTANCE ABUSE NURSE Lung nodule < 6cm on CT from Last 3 Months or Most Recently Relevant to Health Maintenance Results * CT CHEST W/O CONTRAST (04/13/2019 9:22 AM SUBSTANCE ABUSE NURSE) Anatomical Region Laterality Modality Chest N/A Computed Tomogra phy 04/13/2019 9:40 AM SUBSTANCE ABUSE NURSE Impressions 04/13/2019 9:43 AM SUBSTANCE ABUSE NURSE IMPRESSION: 1. A 5 mm ground-glass nodule [...] as described above. Narrative 04/13/2019 9:43 AM SUBSTANCE ABUSE NURSE EXAM DESCRIPTION: CT CHEST W/O CONTRAST REASON [...] Rojelio Yun M.D. RL: DEVIN Report ID: [id number] Reading Location: [id number] Procedure Note Rojelio Yun MD - 04/13/2019 [...] Rojelio Yun M.D. RL: DEVIN Report ID: [id number] Reading Location: [id number] IMPRESSION: 1. A 5 mm ground-glass nodule [...] Insurance MEDICAID BLUE CROSS [place] Care Teams Field Irrigation Worker Relationship Specialty Start Date End Date Emery Higgins DO [address] [place] [address] PCP - General Internal Medicine 07/13/18
[2025-01-10 09:04] LABS: Hematocrit 33.9 % (35.0-42.0); Hemoglobin 9.7 g/dL (11.7-13.8); Immature Granulocyte Percent A 0.8 % (0.0-0.0); Lymphocytes Absolute Auto 2.16 K/mm3 (1.10-4.50); Mean Corpuscular HGB Conc 28.6 g/dL (32-36); Mean Corpuscular Hemoglobin 21.5 pg (27.0-31.0); Mean Corpuscular Volume 75.2 fL (78.0-102.0); Nucleated Red Blood Cells Absolute Auto 0.00 K/mm3 (0.00-0.00); Nucleated Red Blood Cells Perc 0.0 % (0-0.0); Platelet Count Result 283 K/mm3 (150-420); Red Blood Count 4.51 M/mm3 (4.20-5.40); White Blood Count 9.5 K/mm3 (4.8-10.8)
[2025-01-10 09:41] LABS: Alanine Aminotransferase 14 U/L (6-35); Albumin Level 3.7 g/dL (3.5-5.1); Alkaline Phosphatase 82 U/L (38-126); Anion Gap 7 mmol/L (4-12); Aspartate Amino Transferase 24 U/L (14-36); Bilirubin,Total 0.4 mg/dL (0.2-1.3); Blood Urea Nitrogen 17 mg/dL (7-17); Calcium 9.1 mg/dL (8.4-10.2); Carbon Dioxide 24 mmol/L (22-30); Chloride 111 mmol/L (98-107); Estimated Glomerular Filt Rate > 60; Glucose 173 mg/dL (65-110); Magnesium 2.1 mg/dL (1.6-2.3); Osmolality Calculated 299 mOsm/kg (285-295); Potassium 4.6 mmol/L (3.4-5.0); Sodium 142 mmol/L (137-145); Total Protein 6.0 g/dL (6.3-8.2)
[2025-01-10 10:10] LABS: Thyroid Stimulating Hormone 4.840 uIU/mL (0.465-4.680)
[2025-01-10 10:48] LABS: Free T4 Free Thyroxine 1.34 ng/dL (0.78-2.19)
== END 2025-01-10 08:31 | disposition home or self-care (01) ==
LOC: CHSLAB 08:33
PROVIDERS: PCP Internal Medicine
DX: C54.1 Malignant neoplasm of endometrium (principal); E11.65 Type 2 diabetes mellitus with hyperglycemia
CPT/HCPCS: 36415; 80053; 83735; 84439; 84443; 85025; 86304; 86376

== ENCOUNTER 2025-02-06 09:59 | Outpatient (CLI) | payer MEDICARE, SELFPAY ==
[2025-02-06 10:15] LABS: Hematocrit 32.4 % (35.0-42.0); Hemoglobin 9.4 g/dL (11.7-13.8); Immature Platelet Fraction Pct 2.1 % (1.0-7.0); Mean Corpuscular HGB Conc 29.0 g/dL (32-36); Mean Corpuscular Hemoglobin 22.2 pg (27.0-31.0); Mean Corpuscular Volume 76.4 fL (78.0-102.0); Platelet Count Result 505 K/mm3 (150-420); Red Blood Count 4.24 M/mm3 (4.20-5.40); White Blood Count 8.1 K/mm3 (4.8-10.8)
--- OUTSIDE RECORDS SUMMARY | 2025-02-06 10:39 | XMS_ITS | Encounter Summary ---
Author Organization [facility] Address [address] [place] [address] Phone Care Team Providers Care Fountain Roller Assembler Name Role Phone Andrea Chandler MD Primary Care Provider [phone] Reason for Visit * Reason Onset Date Comments Patient issue/concern 01/20/2025 Encounter Details Date Type Department Care Team (Late st Contact Info) Description 01/20/2025 Telephone [facility] Medicine Surgery [address] [facility] [address] [place] [address] Aft, Berenice Sotomayor MD PhD [address] [place] [address] Patient issue/concern Social History Tobacco Use Types Packs/Day Years Used Date Smoking Tobacco: Every Day Cigarettes 1.5 49.7 Started: 1975 Passive Smoke Exposure: Current Smokeless Tobacco: Never AUDIT-C Answer Date Recorded [...] making you feel afraid or unsafe? Denies 01/11/2025 Comments No Sex and Gender Information Value Date Recorded Sex Assigned at Not on file Legal Sex Female 3:27 AM PHARMACIST CRITICAL CARE Gender Identity Not on file Sexual Orientation Not on file documented as of this encounter Miscellaneous Notes * Telephone Encounter - Saida Hauser - 01/20/2025 3:08 PM CDT Patient Query: Was an attempt to transfer to the assigned clinical staff or backline? No. Reason for call?: Arti called in to schedule an appt. She is experiencing the same symptoms she had before the surgery. She would like to speak to the Nurse. Who is the caller: Arti. What is the best number for them to contact for a call back: [phone] Last office visit: Visit date not found Date of Surgery: 11/15/2024 documented in this encounter Plan of Treatment Not on file documented as of this encounter Visit Diagnoses Not on filedocumented in this encounter Care Teams Fountain Roller Assembler Relationship Specialty Start Date End Date Andrea Chandler MD PCP - General Internal Medicine 03/31/23 documented as of this encounter
--- OUTSIDE RECORDS SUMMARY | 2025-02-06 10:39 | XMS_ITS | Clinical Summary ---
Author Organization [facility] Address [address] [address] Phone Care Team Providers Care Trust Administrative Assistant Name Role Phone ShawnEmery squires Marian GRIFFIN Primary Care Provider [phone] Allergies No known active allergies Medications metFORMIN [...] on file Legal Sex Female 10:16 AM PROOF COINS INSPECTOR Gender Identity Not on file Sexual [...] CHEST W/O CONTRAST Routine 04/13/2019 9:22 AM PROOF COINS INSPECTOR Lung nodule < 6cm on CT from Last 3 Months or Most Recently Relevant to Health Maintenance Results * CT CHEST W/O CONTRAST (04/13/2019 9:22 AM PROOF COINS INSPECTOR) Anatomical Region Laterality Modality Chest N/A Computed Tomogra phy 04/13/2019 9:40 AM PROOF COINS INSPECTOR Impressions 04/13/2019 9:43 AM PROOF COINS INSPECTOR IMPRESSION: 1. A 5 mm ground-glass [...] as described above. Narrative 04/13/2019 9:43 AM PROOF COINS INSPECTOR EXAM DESCRIPTION: CT CHEST W/O CONTRAST [...] Rojelio Yun M.D. RL: DEVIN Report ID: [id number] Reading Location: [id number] Procedure Note Roejlio Yun MD - 04/13/2019 EXAM DESCRIPTION: CT [...] Rojelio Yun M.D. RL: DEVIN Report ID: [id number] Reading Location: [id number] IMPRESSION: 1. A 5 mm ground-glass nodule [...] Insurance MEDICAID BLUE CROSS [place] Care Teams Trust Administrative Assistant Relationship Specialty Start Date End Date Emery Higgins DO [address] [place] [address] PCP - General Internal Medicine 07/13/18
--- OUTSIDE RECORDS SUMMARY | 2025-02-06 10:39 | XMS_ITS | Clinical Summary ---
Author Organization [facility] Address [facility] [place] [address] Care Team Providers Care Counseling Program Leader Name Role Phone Unavailable Primary Care Provider Unavailabl e Social History Tobacco Use Types Packs/Day Years Used Date Smoking Tobacco: Never Assessed Comments Unknown Sex and Gender Information Value Date Recorded Sex Assigned at Not on file Legal Sex Female 5:43 PM ALLERGIST/IMMUNOLOGIST Gender Identity Not on file Sexual Orientation [...] (General) 2022 COVID-19 Vaccine (2023-2 5 season) 2025 RSV Immunization or 60+ Years (1 - [...]
--- OUTSIDE RECORDS SUMMARY | 2025-02-06 10:39 | XMS_ITS | Encounter Summary ---
Author Organization [facility] Address [facility] [place] [address] Care Team Providers Care Phlebotomist Prn Name Role Phone Unavailable Primary Care Provider Unavailabl e Encounter Details Date Type Department Care Team (Late st Contact Info) Description 10/16/2018 Abstract [facility] CONVERSION [address] [place] [address] , Generic Conversion, Social History Tobacco Use Types Packs/Day Years Used Date Smoking Tobacco: Never Assessed Comments Unknown Sex and Gender Information Value Date Recorded Sex Assigned at Not on file Legal Sex Female 5:43 PM DOCUMENT EXAMINER Gender Identity Not on file Sexual Orientation Not on file documented as of this encounter Plan of Treatment Not on file documented as of this encounter Visit Diagnoses Not on filedocumented in this encounter
--- OUTSIDE RECORDS SUMMARY | 2025-02-06 10:39 | XMS_ITS ---
Author Organization [facility] [address] Address [address] [place] [address] Care Team Providers Care Manager Disaster Recovery Name Role Phone Andrea Chandler MD Primary Care Provider [phone] Active Problems Problem Noted Date Diagnosed Date [...] hypertension 04/10/2011 Current Treatment and Therapy Plans DOXOrubicin (ADRIAMYCIN) 21 Day Cycles - LANDSCAPING AND GROUNDSKEEPING LABORER* Plan Start Date:01/12/2025 Plan Provider:Quynh Mims MD Linked Problems Endometrial cancer Treatment Medications Current Day (Day 1 , Cycle 2 - Planned for 02/08/2025) Next Day (Day 1, Cycle 3 - Planned for 03/01/2025) DOXOrubicin (ADRIAMYCIN)DOXOrubicin (ADRIAMYCIN) 2 mg/mL DOXOrubicin (ADRIAMYCIN) 2 mg/mL IV syringe 115.8 mg 57.9 mL DOXOrubicin (ADRIAMYCIN) 2 mg/mL IV syringe 115.8 mg 57.9 mL IV Maintenance Therapy Plan* Plan Start Date:07/27/2024 Plan Provider:Quynh Mims MD Linked Problems Endometrial cancerPeritoneal carcinomatosis (HCC) Treatment Medications No medications scheduled. Past Treatment and Therapy Plans Line Care Plan Name Start Date Discontinue Date Treatment Medications Discontinue Reason Plan Provider IV Maintenance Therapy Plan 05/12/2023 07/22/2024 No medications scheduled. Therapy Complete Quynh Mims MD Oncology Chemotherapy Treatment Plan Name Start Date Discontinue Date Treatment Medications Discontinue Reason Plan Provider Cycles DOXOrubicin Liposomal (DOXIL) 28 Day Cycles - LANDSCAPING AND GROUNDSKEEPING LABORER 5 01/12/2025 DOXOrubicin liposomal (LIPODOX)LIPOSOMA L DOXOrubicin (DOXIL) IVPB in 250 mL Toxicity/Comp lication Quynh Mims MD 1 of 6 cycles started Pembrolizumab 21 Day Cycles - LANDSCAPING AND GROUNDSKEEPING LABORER (Carbo Completed) 023 01/10/2025 CARBOplatin (PARAPLATIN) IVPB in 250 mL (by AUC: GOG)PACLItaxel (TAXOL) IVPB in 500 mLpembrolizumab (KEYTRUDA)pembrol izumab (KEYTRUDA) IVPB in 100 mL Therapy Complete Quynh Mims MD 27 of 35 cycles completed Lifetime Dose Tracking * Chemical Lifetime Dose Automatic Entry Manual Entr y doxorubicin 60.313 mg/m2 (115.8 mg) 60.313 mg/m2 (115.8 mg) 0 mg/m2 (0 mg) Fluoro Time 0.4 minutes 0.4 minutes 0 minutes doxorubicin HCl pegylated liposomal 39.378 mg/m2 (76 mg) 39.378 mg/m2 (76 mg) 0 mg/m2 (0 mg) doxorubicin isotoxic equivalent (Please manually verify calculation) 99.691 mg/m2 (191.8 mg) 99.691 mg/m2 (191.8 mg) 0 mg/m2 (0 mg) Air kerma at the reference point (Ka,r) 1 mGy 1 mGy 0 mGy DLP 4,378 mGycm 4,378 mGycm 0 mGycm
--- OUTSIDE RECORDS SUMMARY | 2025-02-06 10:39 | XMS_ITS | Clinical Summary ---
Author Organization [facility] [address] Address [address] [place] [address] Care Team Providers Care Acquisition Analyst Name Role Phone Andrea Chandler MD Primary Care Provider [phone] Allergies Active Allergy Reactions Criticality Noted Date Comments Doxorubicin, Peg-Liposomal Shortness of breath,Other (See comments),Chest tightness,Flushing (skin) High 01/11/2025 Throbbing pain in back of head Paclitaxel Shortness of breath,Other (See comments),Flushing (skin) [...] - planning to get more 019 Active neomycin (MYCIFRADIN) 500 mg tablet Take 2 tablets at 1 PM, 2 PM, and 10 PM the day before surgery. 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 Avoid applying to face/armpits/gr oin. 454 g 1 Active Additional Information Patient taking differently: No details specified, Informant: Self, Reported on 01/27/2025 levothyroxine (SYNTHROID) 125 mcg tabletIndications :hypothyroidism Take 2 tablets (250 mcg total) by mouth daily after lunch Active letrozole (FEMARA) 2.5 mg tabletIndications :Endometrial cancer,Peritoneal carcinomatosis (HCC) Take 1 tablet (2.5 mg total) by mouth daily 30 tablet 5 025 2024 Active Additional Information Patient taking differently: No details specified, Informant: Self, Reported on 01/27/2025 psyllium 0.52 gram capsuleIndication s:constipation Take 1 capsule (0.52 g total) by mouth daily as needed for constipation Active megestroL (MEGACE) 40 mg tabletIndications :Endometrial Carcinoma Take 1 tablet (40 mg total) by mouth 2 (two) times a day 60 tablet [address] (CYMBALTA) 60 mg capsuleIndication s:Neuropathic Pain Take 1 capsule (60 mg total) by mouth daily 30 capsule 11 025 2025 Active docusate sodium (COLACE) 100 mg capsuleIndication s:constipation Take 1 capsule (100 mg total) by mouth 2 (two) times a day with a glass of water 8 capsule Active BD Ultra-Fine Mini Pen Needle 31 gauge x 3/16 needle USE TO INJECT INSULIN DIRECTED Active dexAMETHasone (DECADRON) 4 mg tabletIndications :Nausea and Vomiting Take 2 tablets daily for Days 2, 3, and 4 following chemotherapy 36 tablet 1 Active LORazepam (ATIVAN) 0.5 mg tabletIndications :Cancer Chemotherapy-Donna samira Nausea and Vomiting Take 1 tablet (0.5 mg total) by mouth every 6 (six) hours as needed (Nausea/vomitti ng) 30 tablet Active ondansetron (ZOFRAN) 8 mg tabletIndications :Cancer Chemotherapy-Donna samira Nausea and Vomiting Take 1 tablet (8 mg total) by mouth every 8 (eight) hours as needed for nausea or vomiting 30 tablet 1 Active oxyCODONE (ROXICODONE) 5 mg immediate release tabletIndications :Pain Take 1 tab po every 4 hrs prn for pain. 15 tablet Active sulfamethoxazole- trimethoprim (BACTRIM) 800-160 mg per tabletIndications :Breast abscess Take 1 tablet by mouth 2 (two) times a day for 14 days 28 tablet 2024 Active metroNIDAZOLE (FLAGYL) 500 mg tabletIndications :Breast abscess Take 1 tablet (500 mg total) by mouth 3 (three) times a day for 14 days 42 tablet 025 2024 Active omeprazole (PriLOSEC) 40 mg capsule Take 1 capsule (40 mg total) by mouth daily 30 capsule 11 025 2025 Active OLANZapine (ZyPREXA) 5 mg tabletIndications :Endometrial cancer Take 1 tablet (5 mg total) by mouth daily Take on Days 2, 3, and 4 of each cycle. 9 tablet 1 023 2024 Discontinued famotidine (PEPCID) 20 mg tabletIndications :Heartburn,gastro esophageal reflux disease Take 1 tablet (20 mg total) by mouth daily 30 tablet 4 025 2024 Discontinued(T herapy completed) ondansetron (ZOFRAN) 8 mg tabletIndications :Cancer Chemotherapy-Donna samira Nausea and Vomiting Take 1 tablet at 11am the day before surgery. Then take 1 tablet as needed every 8 hrs for nausea. 30 tablet 1 025 2024 Discontinued(D uplicate order) Active Problems Problem Noted Date Diagnosed Date [...] Encounters Date Type Department Care Team Description 02/03/2025 8:21 AM CDT - 02/03/2025 11:59 PM CDT Hospital Encounter [facility] [place] [address] Avril Mims MD Endometrial cancer; Mass of temporal lobe Discharge Disposition: Discharge to home or self care 01/31/2025 Orders Only [facility] Medicine Gastroenterology [address] [place] [address] Kaylin Floyd LPN 01/30/2025 Results Follow-Up [facility] Medicine Gastroenterology [address] [facility] Advanced [facility] 12th [place] [address] [place] [address] Lou Beltran PA Urea breath test - 01/30/2025 Telephone [facility] Obstetrics and Gynecology [address] [facility] Advanced Medicine 13th [place] [address] [place] [address] Rachael Moncada RN 01/27/2025 9:00 AM CDT [facility] [address] [facility] Floor 8 [place] [address] Britney Joyner PA Breast abscess (Primary Dx) 01/27/2025 8:56 AM CDT - 01/27/2025 11:59 PM CDT Hospital Encounter [facility] - Breast Imaging [address] [facility] Floor 8 [place] [address] Abscess of right breast Discharge Disposition: Discharge to home or self care 01/26/2025 Telephone [facility] Medicine Surgery [address] [facility] Floor 8 [place] [address] Brian Cornejo 01/26/2025 Orders Only [facility] Medicine Surgery [address] [facility] Floor 8 [place] [address] Britney Joyner PA Abscess of right breast (Primary Dx) 01/23/2025 Telephone [facility] Medicine Gastroenterology [address] [facility] 12th [place] [address] [place] [address] Leigh Franklin 01/20/2025 Telephone [facility] Medicine Surgery [address] [facility] Floor 6 [place] [address] Aft, Berenice Sotomayor MD PhD Patient issue/concern 01/20/2025 Telephone [facility] Obstetrics and Gynecology [address] [facility] 13th [place] [address] [place] [address] Rachael Moncada RN 01/18/2025 11:22 AM CDT - 01/18/2025 11:59 PM CDT Hospital Encounter [facility] Radiology [facility] ([facility]) [address] [place] [address] Discharge Disposition: Discharge to home or self care 01/18/2025 10:30 AM CDT - 01/18/2025 2:58 PM CDT Hospital Encounter [facility] [address] [place] [address] Dehydration (Primary Dx) Discharge Disposition: Discharge to home or self care 01/18/2025 9:30 AM CDT Infusion Center [facility] Advanced Medicine Gynecologic Oncology [facility] ([facility]) [address] [place] [address] Peritoneal carcinomatosis (HCC) (Primary Dx); Endometrial cancer; Rib pain; Fall, initial encounter 01/16/2025 10:00 AM CDT - 01/16/2025 11:59 PM CDT Hospital Encounter [facility] Cardiac Diagnostic Lab [address] [place] [address] [address] [place] [address] Endometrial cancer; Encounter for monitoring cardiotoxic drug therapy Discharge Disposition: Discharge to home or self care 01/12/2025 Telephone [facility] Obstetrics and Gynecology [address] [place] [address] 13th [place] [address] Rachael Moncada RN 01/11/2025 2:00 PM CDT Infusion [facility] Gynecologic Oncology [facility] Advanced [facility] ([facility]) [address] [place] [address] Endometrial cancer (Primary Dx); Peritoneal carcinomatosis (HCC) 01/11/2025 10:44 AM CDT - 01/11/2025 11:59 PM CDT Hospital Encounter [facility] Digestive Disease Center [address] [facility] [address] [place] [address] Epigastric pain Discharge Disposition: Discharge to home or self care 01/11/2025 10:15 AM CDT Office Visit [facility] Obstetrics and Gynecology [address] [place] [address] 13th [place] [address] Avril Mims MD Endometrial cancer (Primary Dx) 01/11/2025 Orders Only [facility] Rachael Moncada RN Encounter for monitoring cardiotoxic drug therapy (Primary Dx); Endometrial cancer 01/10/2025 Orders Only [facility] Rachael Moncada RN Endometrial cancer (Primary Dx) 01/05/2025 Telephone [facility] Digestive Disease Center [address] [facility] [address] [place] [address] Karrie Williamson RN 01/02/2025 10:57 AM CDT - 01/02/2025 11:59 PM CDT Hospital Encounter [facility] ([facility]) [address] [place] [address] Discharge Disposition: Discharge to home or self care 01/02/2025 10:56 AM CDT - 01/02/2025 11:59 PM CDT Hospital Encounter [facility] ([facility]) [address] [place] [address] Endometrial cancer; Lung nodule Discharge Disposition: Discharge to home or self care 12/30/2024 Telephone [facility] Gastroenterology [address] [facility] 2nd Floor [address] [place] [address] Kaylin Floyd LPN 12/22/2024 Results Follow-Up [facility] Obstetrics and Gynecology [address] [place] [address] Advanced [facility] 13th [place] [address] Rachael Monc[address] RN [address] Chest Abdomen Pelvis W Contrast 12/22/2024 Orders Only [facility] Obstetrics and Gynecology [address] [place] [address] Advanced Medicine 13th [place] [address] Rachael Moncada RN Lung nodule (Primary Dx); Endometrial cancer; Encounter for preprocedural laboratory examination 12/21/2024 10:00 AM CDT [facility] ([facility] [address] [place] [address] Peritoneal carcinomatosis (HCC) (Primary Dx); Endometrial cancer 12/21/2024 7:25 AM CDT - 12/21/2024 11:59 PM CDT Hospital Encounter [facility] ([facility]) [address] [place] [address] [place] [address] Avril Mims MD Encounter for antineoplastic chemotherapy; Endometrial cancer; Elevated CA-125 Discharge Disposition: Discharge to home or self care 12/20/2024 Orders Only Rachael Sena RN Endometrial cancer (Primary Dx) 12/19/2024 8:30 AM CDT Office Visit [facility] Gastroenterology [address] [facility] 12th [place] [address] [place] [address] Lou Beltran PA Epigastric pain (Primary Dx); Constipation, unspecified constipation type; Rectal bleeding; History of colon polyps; Family history of colon cancer; Endometrial cancer 12/19/2024 Orders Only Rachael Sena RN 12/05/2024 4:15 PM CDT Office Visit [facility] Surgery [address] [facility] Floor 8 [place] [address] ShalinitBerenice MD PhD Mucinous adenocarcinoma (HCC) (Primary Dx); Mammogram abnormal 11/30/2024 1:00 PM CDT [facility] Gynecologic Oncology [facility] ([facility]) [address] [place] [address] Peritoneal carcinomatosis (HCC) (Primary Dx); Endometrial cancer (HCC) 11/30/2024 10:15 AM CDT Office Visit [facility] Obstetrics and Gynecology [facility] 13th [place] [address] [place] [address] Avril Mims MD Endometrial cancer (HCC) 11/29/2024 Orders Only Rachael Sena RN Endometrial cancer (HCC) (Primary Dx); Encounter for antineoplastic chemotherapy; Elevated CA-125 11/28/2024 Orders Only Rachael Sena RN 11/15/2024 7:30 AM CDT - 11/15/2024 8:25 AM CDT Surgery [facility] Operating Room [facility] ([facility]) [address] [place] [address] Berenice Lemos MD PhD INCISION AND DRAINAGE - BREAST 11/15/2024 7:22 AM CDT Anesthesia Event [facility] Operating [facility] [address] [place] [address] Josias Parikh MD Deibel, Lori, NP 11/15/2024 5:17 AM CDT - 11/15/2024 9:06 AM CDT Hospital Encounter [facility] Operating [facility] [address] [place] [address] Aft, Berenice Sotomayor MD PhD Abscess of right breast Discharge Disposition: Discharge to home or self care 11/09/2024 8:30 AM CDT Office Visit [facility] Medicine Obstetrics and Gynecology [address] [place] [address] Advanced Medicine 13th [place] [address] [place] [address] Sarah Casillas MD Endometrial cancer (HCC) 11/08/2024 [...] 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7, amputation CATARACT EXTRACTION Bilateral INCISION AND DRAINAGE 11/15/2024 Right Medical History Medical History Date Comments High blood pressure Diabetes mellitus COPD (chronic obstructive pulmonary disease) HLD (hyperlipidemia) Endometrial cancer 2022 Renal cyst Tobacco use GERD (gastroesophageal reflux [...] on file Legal 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[employer] Gender Identity Not on file Sexual Orientation Not on file Obstetrics History Para Term AB IAB SAB Ectopic Multiple Livin g Live Births 1 1 1 Date Outcome GA Total Labor Labor/2nd/3rd Weight Sex Type Anes PTL Perla A1 A5 Name Clin Para Comments x1 Last Filed Vital Signs Vital Sign Reading Time Taken Comments Blood Pressure 173/71 01/18/2025 1:41 PM CDT Pulse 86 01/18/2025 1:41 PM CDT Temperature 36.5 C (97.7 F) 01/18/2025 1:41 PM CDT Respiratory Rate 16 01/18/2025 1:41 PM CDT Oxygen Saturation 99% 01/18/2025 1:41 PM CDT Inhaled Oxygen Concentration - - Weight 84.4 kg (186 lb) 01/27/2025 8:34 AM CDT Height 157 cm (5' 1.81) 01/27/2025 8:34 AM CDT Body Mass Index 34.23 01/27/2025 8:34 AM CDT Plan of Treatment Health Maintenance [...] Visit 65+ 2022 Covid-19 Vaccine (4 - 2024-2 6 season) 2025 04/26/2021, 08/14/2020, 07/17/2020 Influenza Vaccine (#1) 2025 , 02/11/2022, 01/31/2019, Additional history exists Hemoglobin A1C 02/19/2025 08/20/2024, 05/0 01/2024, 04/17/2023 Breast Cancer Screening-Mammogram 08/01/2025 025 Lipid Panel 08/19/2025 08/19/2024 Fall Risk Assessment 11/15/2025 11/15/2024 eGFR 01/18/2026 01/18/2025, 08/09, 08/20/2024, Additional history exists Colon Cancer Screening-Colonoscopy 08/22/20342024, 10/23/2023 Medical Devices Implanted Type Area Pockets And Pieces Necktie Operator Device Identifier Shelf Expiration Date Model / Serial / Lot [employer] Excela Low Porfile Power Port 8fr 1.6mm 1 Lumen [id number] - [id number] Implanted:Qty: 1 on 05/06/[address] [facility] [employer] 01/04/2028 [id number] / / [id number] Procedures Procedure Name Priority Date/Time Associated Diagnosis Comments MRI BRAIN W WO CONTRAST Schedule Routine, Read Routine (OP Routine) 02/03/2025 10:14 AM CDT Endometrial cancer Mass of temporal lobe US BREAST RIGHT LIMITED Schedule Routine, Read Routine (OP Routine) 01/27/2025 9:30 AM CDT Abscess of right breast POC BLOOD GAS AND CHEMISTRIES, ARTERIAL Routine 01/18/2025 11:57 AM CDT XR RIBS BILATERAL 3 VIEWS ED Urgent/IP Urgent 01/18/2025 11:39 AM CDT EGFR STAT 01/18/2025 11:17 AM CDT DIFFERENTIAL AUTO STAT 01/18/2025 11:17 AM CDT PHOSPHORUS STAT 01/18/2025 11:17 AM CDT MAGNESIUM STAT 01/18/2025 11:17 AM CDT COMPREHENSIVE METABOLIC PANEL STAT 01/18/2025 11:17 AM CDT CBC WITH AUTO DIFFERENTIAL STAT 01/18/2025 11:17 AM CDT TRANSTHORACIC ECHO (TTE) COMPLETE W DOPPLER/CF W CONTRAST Routine 01/16/2025 12:24 PM CDT Endometrial cancer Encounter for monitoring cardiotoxic drug therapy SCAN - LABS 01/11/2025 2:42 PM CDT UREA BREATH TEST Routine 01/11/2025 10:46 AM CDT Epigastric pain SCAN - LABS 01/10/2025 11:24 AM CDT PET/CT FDG SKULL TO THIGH Schedule Routine, [...] SCAN - LABS 11/07/2024 11:17 AM CDT COLONOSCOPY 08/22/2024 9:46 AM CDT HEMOGLOBIN A1C STAT 08/20/2024 5:15 AM CDT LIPID PANEL Routine 08/19/2024 11:58 PM CDT DIAGNOSTIC MAMMOGRAM BILATERAL W HAROON Schedule Routine, Read Routine (OP Routine) 08/01/2024 2:23 PM CDT Endometrial cancer (HCC) Abnormal breast finding from Last 3 Months or Most Recently Relevant to Health Maintenance Results * MRI Brain W WO Contrast (02/03/2025 10:14 AM CDT) Anatomical Region Laterality Modality Head and Neck N/A Magnetic Resonan ce 02/03/2025 10:4 8 AM CDT Impressions 02/03/2025 11:49 AM CDT 1. Redemonstrated peripherally enhancing focus along the right medial temporal lobe, measuring 4 mm, not significantly changed from prior study, might represent partial volume averaging of traversing vessels. Continued attention on follow-up imaging is recommended. 2. No definite enhancing intracranial lesion to suggest metastasis. Dictated by: Valdez Travis M.D. The radiology attending physician has personally reviewed this study, and had reviewed and/or edited this written report and agrees with it. Electronically signed by: MD Niecy Montoya 02/03/2025 11:49 AM CDT EXAMINATION: Magnetic resonance imaging (MRI) of the brain and brainstem without and with contrast HISTORY: 69 years-old Female with Apparent peripherally enhancing focus along the medial temporal lobe measuring up to 4 mm in size without associated FLAIR signal abnormality and with likely central CSF signal, which is favored to represent a prominent vascular loop within the CSF rather than true ring-enhancing lesion.. TECHNIQUE: Multiplanar multi-weighted MRI of the brain and brainstem was performed without and with intravenous contrast using the general brain protocol. Contrast information: 16 mL Gadoterate Meglumine IV COMPARISON: MRI brain from 07/20/2024. FINDINGS: Redemonstrated peripherally enhancing focus along the right medial temporal lobe, measuring 4 mm, not significantly changed from prior study, likely a prominent vessel (series 42 image 79). There is mild generalized cerebral atrophy with ex vacuo dilatation of the ventricles. Mild periventricular and subcortical white matter T2/FLAIR hyperintensities, nonspecific but most likely representing chronic small vessel ischemic disease. The scalp and calvarium are normal. The superior sagittal sinus demonstrates normal venous flow. The corpus callosum is normal in shape and signal intensity. The posterior fossa is unremarkable. There is mild thickening of the pituitary infundibulum, nonspecific. The brainstem and craniocervical junction are unremarkable. Diffusion weighted images reveal no hyperintensities to suggest acute cerebral infarction. The susceptibility weighted sequences reveal a left frontal and a right temporal foci of microhemorrhage, not significantly changed from prior study. The ventricles are normal in size and position without evidence of hydrocephalus. Mucosal thickening of the sphenoid sinuses. Trace bilateral mastoid effusions. Minimal effusion is noted in the pneumatized petrous apices. Other than bilateral lens replacements, bilateral orbits are unremarkable. Normal flow voids are demonstrated in the carotid arteries and basilar artery. Procedure Note Savita Ortiz MD PhD - 02/03/2025 EXAMINATION: Magnetic resonance imaging (MRI) of the brain and brainstem without and with contrast HISTORY: 69 years-old Female with Apparent peripherally enhancing focus along the medial temporal lobe measuring up to 4 mm in size without associated FLAIR signal abnormality and with likely central CSF signal, which is favored to represent a prominent vascular loop within the CSF rather than true ring-enhancing lesion.. TECHNIQUE: Multiplanar multi-weighted MRI of the brain and brainstem was performed without and with intravenous contrast using the general brain protocol. Contrast information: 16 mL Gadoterate Meglumine IV COMPARISON: MRI brain from 07/20/2024. FINDINGS: Redemonstrated peripherally enhancing focus along the right medial temporal lobe, measuring 4 mm, not significantly changed from prior study, likely a prominent vessel (series 42 image 79). There is mild generalized cerebral atrophy with ex vacuo dilatation of the ventricles. Mild periventricular and subcortical white matter T2/FLAIR hyperintensities, nonspecific but most likely representing chronic small vessel ischemic disease. The scalp and calvarium are normal. The superior sagittal sinus demonstrates normal venous flow. The corpus callosum is normal in shape and signal intensity. The posterior fossa is unremarkable. There is mild thickening of the pituitary infundibulum, nonspecific. The brainstem and craniocervical junction are unremarkable. Diffusion weighted images reveal no hyperintensities to suggest acute cerebral infarction. The susceptibility weighted sequences reveal a left frontal and a right temporal foci of microhemorrhage, not significantly changed from prior study. The ventricles are normal in size and position without evidence of hydrocephalus. Mucosal thickening of the sphenoid sinuses. Trace bilateral mastoid effusions. Minimal effusion is noted in the pneumatized petrous apices. Other than bilateral lens replacements, bilateral orbits are unremarkable. Normal flow voids are demonstrated in the carotid arteries and basilar artery. IMPRESSION: 1. Redemonstrated peripherally enhancing focus along the right medial temporal lobe, measuring 4 mm, not significantly changed from prior study, might represent partial volume averaging of traversing vessels. Continued attention on follow-up imaging is recommended. 2. No definite enhancing intracranial lesion to suggest metastasis. Dictated by: Valdez Travis M.D. The radiology attending physician has personally reviewed this study, and had reviewed and/or edited this written report and agrees with it. Electronically signed by: Savita Ortiz MD us Avril Mims MD IMG MRI PROCEDURES F inal Result * US Breast Right Limited (01/27/2025 9:30 AM CDT) Anatomical Region Laterality Modality Breast Right Ultrasound 01/27/2025 10:0 2 AM CDT Impressions 01/27/2025 10:04 AM CDT 1. Unchanged subareolar phlegmon at the 12 o'clock position. Recommend ultrasound follow-up for this lesion in 6 weeks post a course of antibiotics therapy. If there is concern for malignancy at this time, ultrasound-guided biopsy may be performed. 2. Decrease in size of 2:30 and 3 o'clock position phlegmons in the right breast compatible with improved abscesses in the right breast. These are not amenable to ultrasound-guided drainage. Recommend follow-up in 6 weeks. OVERALL FINAL ASSESSMENT: BI-RADS Category 3: Probably Benign. RECOMMENDATION: Recommend follow-up diagnostic breast imaging in 6 weeks. Dictated by: Lonny Underwood M.D. The radiology attending physician has personally reviewed this study, and had reviewed and/or edited this written report and agrees with it. Electronically signed by: Makayla Lopez M.D. Narrative 01/27/2025 10:04 AM CDT EXAMINATION: RIGHT BREAST ULTRASOUND HISTORY: 51-year-old presenting for follow-up of subareolar breast abscess status post incision and drainage in November 2024. History of tobacco use. COMPARISON: Ultrasound dated 08/01/2024 TECHNIQUE: Directed ultrasound evaluation of the RIGHT breast was performed. ULTRASOUND FINDINGS: Targeted ultrasound of the right breast at the 12 o'clock position demonstrated a phlegmon that measures 2.4 cm x 0.5 cm x 1.1 cm which is relatively unchanged when compared to prior. Targeted ultrasound of the right breast at the 2:30 position demonstrated a phlegmon that measures 1.7 cm x 0.2 cm x 0.8 cm which is decreased in size when compared to prior. An additional targeted ultrasound at the 3 o'clock position 1 cm from the nipple demonstrated a phlegmon that is nearly resolved and corresponds with draining site. No new suspicious solid or cystic mass. Britney GARCIA IMG MAMMO PROCEDURES Final Resu lt * POC Blood Gas and Chemistries, Arterial - (01/18/2025 11:57 AM CDT) Lactate POC 1.0 0.7 - 2.0 mmol/L Blood 01/18/2025 11:5 7 AM CDT 01/18/2025 11:57 AM CDT us Andrea Chandler MD LAB POCT ORDERABLES - DEVICE Fi nal Result [facility]STYNA ORTIZ [facility] Department [place] [address] * X-ray ribs bilateral 3 views (01/18/2025 11:39 AM CDT) Anatomical Region Laterality Modality Rib, Chest Bilateral Computed Radiogr aphy 01/18/2025 12:0 2 PM CDT Impressions 01/18/2025 12:02 PM CDT 1. No acute displaced fracture of the ribs Electronically signed by: Kelli Caceres MD Narrative 01/18/2025 12:02 PM CDT EXAMINATION: XR RIBS BILATERAL 3 VIEWS HISTORY: Rib pain FINDINGS: 6 radiographs of the ribs are submitted for interpretation with 01/02/2025. No acute displaced rib fracture. No large pleural effusion. A right chest Port-A-Cath terminates in the superior vena cava. Procedure Note Eun Caceres MD - 01/18/2025 EXAMINATION: XR RIBS BILATERAL 3 VIEWS HISTORY: Rib pain FINDINGS: 6 radiographs of the ribs are submitted for interpretation with 01/02/2025. No acute displaced rib fracture. No large pleural effusion. A right chest Port-A-Cath terminates in the superior vena cava. IMPRESSION: 1. No acute displaced fracture of the ribs Electronically signed by: Kelli Caceres MD Marychuy Loomis DIRECTOR DRUG IMG XR PROCEDURES Final R esult * eGFR (01/18/2025 11:17 AM CDT) eGFR 82 >=60 mL/min/1. 73 m2 Comment: Interpretive Data [...] interpretive data was last reviewed 2021. Blood 01/18/2025 11:1 7 AM CDT 01/18/2025 11:35 AM CDT us Marychuy Loomis NP LAB BLOOD ORDERABLES Jo marsh Result [facility] Department [place] [address] * (ABNORMAL) Differential, auto (01/18/2025 11:17 AM CDT) Neutrophil abs 10.68(H) 1.50 - 6.50 K/cumm Imm gran abs 0.09 0.00 - 0.10 K/cumm [facility] Lymphocyte abs 1.88 0.80 - 3.30 K/cumm [facility] Monocyte abs 0.86(H) 0.20 - 0.80 K/cumm [facility] Eosinophil abs 0.33 0.00 - 0.50 K/cumm [facility] Basophil abs 0.07 0.00 - 0.10 K/cumm [facility] Neutrophil pct 76.8 % [facility] Comment: Interpretive Data Percent cell count reference ranges are not reported, since discordance with absolute values may lead to misinterpretation of CBC data. Current Interpretive Data was last revised on 2017. Imm gran pct 0.6 % [facility] Comment: Interpretive Data Percent cell count reference ranges are not reported, since discordance with absolute values may lead to misinterpretation of CBC data. Current Interpretive Data was last revised on 2017. Lymphocyte pct 13.5 % [facility] Comment: Interpretive Data Percent cell count reference ranges are not reported, since discordance with absolute values may lead to misinterpretation of CBC data. Current Interpretive Data was last revised on 2017. Monocyte pct 6.2 % [facility] Comment: Interpretive Data Percent cell count reference ranges are not reported, since discordance with absolute values may lead to misinterpretation of CBC data. Current Interpretive Data was last revised on 2017. Eosinophil pct 2.4 % [facility] Comment: Interpretive Data Percent cell count reference ranges are not reported, since discordance with absolute values may lead to misinterpretation of CBC data. Current Interpretive Data was last revised on 2017. Basophil pct 0.5 % [facility] Comment: Interpretive Data Percent cell count reference ranges are not reported, since discordance with absolute values may lead to misinterpretation of CBC data. Current Interpretive Data was last revised on 2017. Blood 01/18/2025 11:1 7 AM CDT 01/18/2025 11:35 AM CDT us Marychyu Loomis DIRECTOR DRUG LAB BLOOD ORDERABLES Jo marsh Result [facility] Department [place] [address] * (ABNORMAL) CBC with auto differential (01/18/2025 11:17 AM CDT) WBC 13.91(H) 3.80 - 9.90 K/cumm Hgb 9.3(L) 11.9 - 15.5 g/dL [facility] Hct 32.3(L) 35.6 - 45.5 % [facility] Plt 251 150 - 400 K/cumm [facility] MPV 10.9 9.1 - 12.3 fL [facility] RBC 4.34 3.90 - 5.20 M/cumm [facility] MCV 74.4(L) 81.3 - 96.4 fL [facility] MCH 21.4(L) 27.1 - 33.3 pg [facility] MCHC 28.8(L) 32.3 - 35.7 g/dL [facility] RDW CV 21.2(H) 11.1 - 14.9 % [facility] RDW SD 55.9(H) 35.7 - 48.1 fL [facility] NRBC abs 0.00 0.00 - 0.01 K/cumm [facility] Blood 01/18/2025 11:1 7 AM CDT 01/18/2025 11:35 AM CDT Marychuy Loomis NP LAB BLOOD ORDERABLES Jo l Result [facility] [place] [address] * Phosphorus (01/18/2025 11:17 AM CDT) Phosphorus, pl 3.5 2.3 - 4.5 mg/dL Blood Venous blood specimen / Unknown 01/18/2025 11:17 AM CDT 01/18/2025 11:35 AM CDT Marcyhuy Loomis NP LAB BLOOD ORDERABLES Jo l Result Performing Organization Address City/[facility] Co de Phone Number [facility] [place] [address] * Magnesium (01/18/2025 11:17 AM CDT) Magnesium 2.0 1.4 - 2.5 mg/dL Blood Venous blood specimen / Unknown 01/18/2025 11:17 AM CDT 01/18/2025 11:35 AM CDT Marychuy Loomis NP LAB BLOOD ORDERABLES Jo l Result Performing Organization Address City/[facility]/ZIP Co de Phone Number [facility] Department [place] [address] * (ABNORMAL) Comprehensive metabolic panel (01/18/2025 11:17 AM CDT) Sodium 142 135 - 145 mmol/L Potassium, pl 3.6 3.3 - 4.9 mmol/L [facility] Chloride 109 97 - 110 mmol/L [facility] CO2 24 22 - 32 mmol/L [facility] Anion gap 9 2 - 15 mmol/L [facility] BUN 15 6 - 25 mg/dL [facility] Creatinine 0.79 0.60 - 1.10 mg/dL [facility] Glucose 152 70 - 199 mg/dL [facility] Comment: Interpretive Data Fasting glucose >/= [...] interpretive data was last revised 2022. Calcium 8.8 8.5 - 10.3 mg/dL [facility] Bilirubin, total 0.2 0.1 - 1.2 mg/dL [facility] Protein, pl 6.3(L) 6.5 - 8.5 g/dL [facility] Albumin 3.6 3.5 - 5.0 g/dL [facility] Alk phos 93 40 - 130 Units/L [facility] ALT 13 7 - 45 Units/L [facility] AST 17 10 - 45 Units/L [facility] Blood 01/18/2025 11:1 7 AM CDT 01/18/2025 11:35 AM CDT us Marychuy Loomis DIRECTOR DRUG LAB BLOOD ORDERABLES Jo marsh Result [facility] Department [place] [address] * TRANSTHORACIC ECHO (TTE) COMPLETE W DOPPLER/CF W CONTRAST (01/16/2025 12:24 PM CDT) Estimated EF 70-75 % CONS SCIMAGE EF Mod BP 50 % CONS SCIMAGE Anatomical Region Laterality Modality Ultrasound 01/16/2025 11:2 6 AM CDT Narrative 01/16/2025 1:23 PM CDT [facility] [place] [address] Transthoracic Echocardiographic Report Patient Name: RHONDA WISEMAN S : 1955 (69y 11m) Gender: F Study Date: 01/16/2025 11:26:12 AM Ht(Inch): 63 Wt(Lb): 184.97 BSA: 1.93 Enrollment Services Dean: Michel Boykin RDCS Location: [facility] Order Provider: AVRIL MIMS Heart Rate: 82 BMI: 32.76 BP: 200 / 86 Ref Provider: AVRIL MIMS PROCEDURES: Echocardiographic Report: Transthoracic complete echo with strain imaging and contrast, 2D, spectral and tissue Doppler, color flow Doppler, M-mode. Additional Procedures: Myocardial strain imaging was performed. Contrast: Contrast Enhancement was Employed: Due to suboptimal image quality with inadequate visualization of at least 2 of 16 LV wall segments in any view after initial imaging. Perflutren contrast was administered using the volume necessary to obtain adequate images. 0.8 ml Optison Administered, (2.2 ml wasted). INDICATIONS: C54.1 Malignant neoplasm of endometrium, Z51.81 Encounter for therapeutic drug level monitoring, and Z79.899 Other long winder tender (current) drug therapy. CONCLUSIONS: 1. Normal left ventricular size. Concentric LV remodeling. Mildly depressed left ventricular systolic function. The Ejection Fraction is visually estimated to be 70-75 %. Grade I diastolic dysfunction (normal LA pressure). Unable to assess global longitudinal strain due to image quality. 2. There are no regional wall motion abnormalities. 3. Normal right ventricular size. Normal right ventricular systolic function. 4. There is no significant valvular heart disease. 5. Unable to determine PASP due to inadequate TR jet. 6. Normal-sized atria. 7. 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 The estimated RA pressure is 3 (or less) mmHg. 8. Mild aortic root dilation at sinuses of Valsalva (34 mm). The ascending aorta is normal in size when indexed. 9. Normal pericardium without pericardial effusion. ATTESTATION: I have personally reviewed and interpreted this study without fellow or resident. DISCLAIMER: The study images and the final report will be retained in the patient chart by the Echo Laboratory for the legally required time period. This chart constitutes the legal record of any testing performed. FINDINGS: Left Ventricle: Normal left ventricular size based on volume index. Concentric LV remodeling. Mildly depressed left ventricular systolic function. The Ejection Fraction is visually estimated to be 70-75 %. Grade I diastolic dysfunction (normal LA pressure). Unable to assess global longitudinal strain due to image quality. Regional Wall Motion: There are no regional wall motion abnormalities. Right Ventricle: Normal right ventricular size. Normal right ventricular systolic function. Left Atrium: The left atrium is normal in size. Right Atrium: The right atrium is normal in size. Mitral Valve: Normal mitral valve structure. No mitral regurgitation. No stenosis present. Aortic Valve: Trileaflet aortic valve. Mildly thickened aortic valve leaflets. No aortic valve stenosis. The mean transaortic gradient is 4 mmHg. Tricuspid Valve: Normal tricuspid valve structure. No tricuspid regurgitation. Pulmonic Valve: Normal pulmonic valve structure. No pulmonic regurgitation. Pericardium: Normal pericardium without pericardial effusion. Aorta: Mild aortic root dilation at sinuses of Valsalva (34 mm). Normal aortic root size when indexed. The ascending aorta is normal in size when indexed. 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 The estimated RA pressure is 3 (or less) mmHg. PASP: Unable to determine PASP due to inadequate TR jet. MEASUREMENTS: 2D/MM Value Range Doppler Value Range LVIDd 2D 4.44 cm [ 3.80 - 5.20 ] AV Peak Roger 1.4 m/s [ 1.0 - 1.7 ] LVIDs 2D 2.41 cm [ 2.20 - 3.50 ] AV Peak PG 7.84 mmHg IVSd 2D 0.91 cm [ 0.60 - 0.90 ] AV Mean PG 4 mmHg LVPWd 2D 1.04 cm [ 0.60 - 0.90 ] AV VTI 24.9 cm LV Thickness Ratio 0.9 LVOT Peak Roger 1.1 m/s [ 0.7 - 1.1 ] LV FS 2D 45.78 % [ 27.00 - 45.00 ] LVOT Peak PG 4.84 mmHg LV Mass 2D 147.66 g LVOT Mean PG 3 mmHg LV Mass Index 2D 76.46 g/m2 LVOT VTI 20.8 cm RWT 0.47 LVOT Diam 1.86 cm EDV Mod BP 79.81 ml [ 46.00 - 106.00 ] SHELLIE VTI 2.27 cm2 LV EDV Index 41.33 ml/m2 LVOT/AV VTI 0.84 - Dimensionless index (DVI) EF Mod BP 50 % [ 54 - 74 ] MV E Peak Roger 0.5 m/s [ 0.6 - 1.3 ] Visually Estimated EF 70-75 % MV A Peak Roger 1.0 m/s [ 1.0 - 1.2 ] LV GLS -15.8 % [ -25.0 - -18.0 ] MV E/A 0.5 ratio [ 0.8 - 1.5 ] LA Length 4C 6.18 cm MV Decel Time 415.42 msec [ 104.00 - 258.00 ] LA Length 2C 5.49 cm Med E` Roger 5.3 cm/sec [ 8.0 - 25.0 ] LA Volume BP 62.26 ml Lat E` Roger 7.0 cm/sec [ 10.0 - 25.0 ] LA Volume Index 32.24 ml/m2 [ 16.00 - 34.00 ] Average E/E` 8.13 RV Base Dimen 2D 3.5 cm [ 2.5 - 4.2 ] RV S` 12.15 cm/sec TAPSE 1.74 cm [ 1.71 - 5.00 ] PV Peak Roger 1.1 m/s [ 0.4 - 0.8 ] RA Volume 30.81 ml PV Peak PG 4.84 mmHg RA Volume Index 15.95 ml/m2 IVC Diam 1.13 cm IVC Collapse 66 % AoR Diam 2D 3.40 cm [ 2.70 - 3.70 ] Ao Root Index 1.76 cm/m2 [ 1.00 - 2.00 ] Asc Ao Diam 2D 3.10 cm Asc Ao Index 1.61 cm/m2 Electronically Signed By: Art Murphy MD 01/16/2025 1:23:37 PM CDT Procedure Note Art Murphy MD - 01/16/2025 [facility] [place] [address] Transthoracic Echocardiographic Report Patient Name: RHONDA WISEMAN S : 1955 (69y 11m) Gender: F Study Date: 01/16/2025 11:26:12 AM Ht(Inch): 63 Wt(Lb): 184.97 BSA: 1.93 Enrollment Services Dean: Michel Boykin RDCS Location: [facility] Order Provider:AVRIL MIMS Heart Rate: 82 BMI: 32.76 BP: 200 / 86 Ref Provider: AVRIL MIMS PROCEDURES: Echocardiographic Report: Transthoracic complete echo with strain imagingand contrast, 2D, spectral and tissue Doppler, color flow Doppler, M-mode. Additional Procedures: Myocardial strain imaging was performed. Contrast: Contrast Enhancement was Employed: Due to suboptimal imagequality with inadequate visualization of at least 2 of 16 LV wall segments in any viewafter initial imaging. Perflutren contrast was administered using the volume necessaryto obtain adequate images. 0.8 ml Optison Administered, (2.2 ml wasted). INDICATIONS: C54.1 Malignant neoplasm of endometrium, Z51.81 Encounter for therapeuticdrug level monitoring, and Z79.899 Other nursing home (current) drug therapy. CONCLUSIONS: 1. Normal left ventricular size. Concentric LV remodeling. Mildlydepressed left ventricular systolic function. The Ejection Fraction is visually estimatedto be 70-75 %. Grade I diastolic dysfunction (normal LA pressure). Unable to assessglobal longitudinal strain due to image quality. 2. There are no regional wall motion abnormalities. 3. Normal right ventricular size. Normal right ventricular systolicfunction. 4. There is no significant valvular heart disease. 5. Unable to determine PASP due to inadequate TR jet. 6. Normal-sized atria. 7. 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 The estimated RA pressure is 3 (or less) mmHg. 8. Mild aortic root dilation at sinuses of Valsalva (34 mm). The ascendingaorta is normal in size when indexed. 9. Normal pericardium without pericardial effusion. ATTESTATION: I have personally reviewed and interpreted this study without fellow orresident. DISCLAIMER: The study images and the final report will be retained in the patientchart by the Echo Laboratory for the legally required time period. This chart constitutesthe legal record of any testing performed. FINDINGS: Left Ventricle: Normal left ventricular size based on volume index.Concentric LV remodeling. Mildly depressed left ventricular systolic function. TheEjection Fraction is visually estimated to be 70-75 %. Grade I diastolic dysfunction (normal LApressure). Unable to assess global longitudinal strain due to image quality. Regional Wall Motion: There are no regional wall motion abnormalities. Right Ventricle: Normal right ventricular size. Normal right ventricularsystolic function. Left Atrium: The left atrium is normal in size. Right Atrium: The right atrium is normal in size. Mitral Valve: Normal mitral valve structure. No mitral regurgitation. Nostenosis present. Aortic Valve: Trileaflet aortic valve. Mildly thickened aortic valveleaflets. No aortic valve stenosis. The mean transaortic gradient is 4 mmHg. Tricuspid Valve: Normal tricuspid valve structure. No tricuspidregurgitation. Pulmonic Valve: Normal pulmonic valve structure. No pulmonicregurgitation. Pericardium: Normal pericardium without pericardial effusion. Aorta: Mild aortic root dilation at sinuses of Valsalva (34 mm). Normalaortic root size when indexed. The ascending aorta is normal in size when indexed. 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 The estimated RA pressure is 3 (or less) mmHg. PASP: Unable to determine PASP due to inadequate TR jet. MEASUREMENTS: 2D/MM Value Range DopplerValue Range LVIDd 2D 4.44 cm [ 3.80 - 5.20 ] AV Peak Vel1.4 m/s [ 1.0 - 1.7 ] LVIDs 2D 2.41 cm [ 2.20 - 3.50 ] AV Peak PG7.84 mmHg IVSd 2D 0.91 cm [ 0.60 - 0.90 ] AV Mean PG4 mmHg LVPWd 2D 1.04 cm [ 0.60 - 0.90 ] AV VTI24.9 cm LV Thickness Ratio 0.9 LVOT PeakVel 1.1 m/s [ 0.7 - 1.1 ] LV FS 2D 45.78 % [ 27.00 - 45.00 ] LVOT Peak PG4.84 mmHg LV Mass 2D 147.66 g LVOT Mean PG3 mmHg LV Mass Index 2D 76.46 g/m2 LVOT VTI20.8 cm RWT 0.47 LVOT Diam1.86 cm EDV Mod BP 79.81 ml [ 46.00 - 106.00 ] SHELLIE VTI2.27 cm2 LV EDV Index 41.33 ml/m2 LVOT/AV VTI0.84 - Dimensionless index (DVI) EF Mod BP 50 % [ 54 - 74 ] MV E PeakVel 0.5 m/s [ 0.6 - 1.3 ] Visually Estimated EF 70-75 % MV A PeakVel 1.0 m/s [ 1.0 - 1.2 ] LV GLS -15.8 % [ -25.0 - -18.0 ] MV E/A0.5 ratio [ 0.8 - 1.5 ] LA Length 4C 6.18 cm MV DecelTime 415.42 msec [ 104.00 - 258.00 ] LA Length 2C 5.49 cm Med E` Vel5.3 cm/sec [ 8.0 - 25.0 ] LA Volume BP 62.26 ml Lat E` Vel7.0 cm/sec [ 10.0 - 25.0 ] LA Volume Index 32.24 ml/m2 [ 16.00 - 34.00 ] Average E/E`8.13 RV Base Dimen 2D 3.5 cm [ 2.5 - 4.2 ] RV S`12.15 cm/sec TAPSE 1.74 cm [ 1.71 - 5.00 ] PV Peak Vel1.1 m/s [ 0.4 - 0.8 ] RA Volume 30.81 ml PV Peak PG4.84 mmHg RA Volume Index15.95 ml/m2 IVC Diam1.13 cm IVC Collapse 66 % AoR Diam 2D 3.40 cm [ 2.70 - 3.70 ] Ao Root Index 1.76 cm/m2 [ 1.00 - 2.00 ] Asc Ao Diam 2D3.10 cm Asc Ao Index1.61 cm/m2 Electronically Signed By: Art Murphy MD 01/16/2025 1:23:37 PM CDT Avril Mims MD CV ECHO PROCEDURES F inal Result * SCAN - LABS (01/11/2025 2:42 PM CDT) Rachael Moncada RN Final Result * Urea breath test - (01/11/2025 10:46 AM CDT) Anatomical Region Laterality Modality Other Lou GARCIA GI LAB PROCEDURE ORDERA BLES Final Result * SCAN - LABS (01/10/2025 11:24 AM CDT) Rachael Moncada RN Edited Resul t - Final * PET/CT FDG Skull to Thigh (01/02/2025 [...] FDG-PET/CT IMAGING DATE OF STUDY: 01/02/2025 SCANNER: [facility] Widespace (NV1). This is a high-resolution scanner, which [...] obtained. The study was interpreted on the [employer] workstation. The mean liver SUV (reported for water quality assistant purposes) is 2.9. The total scanned area [...] FDG-PET/CT IMAGING DATE OF STUDY: 01/02/2025 SCANNER: [facility] Widespace (NV1). This is a high-resolution scanner, which [...] obtained. The study was interpreted on the [employer] workstation. The mean liver SUV (reported for water quality assistant purposes) is 2.9. The total scanned area [...] Electronically signed by: Andrez Solis DO us Avril Mims MD IMG PET PROCEDURES F inal [...] it. Electronically signed by: Yolanda Stratton M.D. Avril Mims MD IMG CT PROCEDURES Fi nal [...] POCT ORDERABLES - ANDRES CE Final [facility] [place], [place] [id number] * Surgical pathology (11/15/2024 7:48 AM CDT) Tissue (Skin, excision) 11/15/2024 7:48 AM CDT Narrative PATHOLOGY [facility] - 11/21/2024 1:27 PM CDT EPIC results best viewed via link to PDF [facility] [place] [address] Note to Patients: This report may contain [...] Gender: F : 1955 (Age: 69) Address: [address] [place] [id number] Hospital #: [id number] Taken:11/15/2024 Received:11/15/2024 Reported: 11/21/2024 Patient Type: [facility] Service: Surgery Location: Physician(s): Bernabe Cooper [...] Sections find fibrous and suppurative cut surfaces. Associate Partner sections are submitted labeled A1. Jar 1. sxv/11/15/2024 11:17 PA(s): Peter Partida, MS, PA ([facility])CM By this signature, I attest that the above diagnosis is based upon my personal examination of the slides(and/or other material). Addenda/Procedures The performance characteristics of some immunohistochemical stains, fluorescence in-situ hybridization tests and immunophenotyping by flow cytometry cited in this report (if any) were determined by the Surgical Pathology and Flow Cytometry Departments at [facility] as part of an ongoing water quality assistant program and in compliance with federally mandated [...] Surgical Pathology and Flow Cytometry Departments of [facility]. It has not been cleared or approved by the U. S. Food and Drug Administration. IMAGES AND SCANNED DOCUMENTS, IF INCLUDED, ONLY VIEWABLE IN PDF VERSION OF REPORT us Berenice Lemos MD PhD LAB PATHOLOGY ORDERABLES F inal Result [facility] [address]rd Floor [place], [place] [phone] * POCT glucose (11/15/2024 7:10 AM CDT) Glucose, POC 167 70 - 199 mg/dL Blood 11/15/2024 7:10 AM CDT 11/15/2024 7:10 AM CDT us Berenice Lemos MD PhD LAB POCT ORDERABLES - ANDRES CE Final Result [facility] Department [place] [address] * SCAN - LABS (11/08/2024 10:11 PM [...] Female Attending MD: Darius Lindo M.D. Room: [facility] ENDOSCOPY ROOM 3 Note Status: Finalized Procedure: Colonoscopy Indications: Last colonoscopy 1 year ago (October 2023), Rectal bleeding Referring MD: Marcie Norman Jr, M.D., Avril Mims M.D. Providers: Darius Lindo M.D. Medicines: [...] The scope was passed under direct vision.The [id number] endoscope was introduced through the anus and advanced to the cecum, identified by appendiceal orifice and ileocecal valve. The bowel preparation used was GoLYTELY via split dose instruction. The quality of the bowel preparationwas evaluated using the BBPS ([place] Bowel Preparation Scale) with scores of: Right [...] clip was successfully placed (MR conditional). Clip quality control microbiology supervisor: R&V. There was no bleeding at the end [...] retrieved. Clip (MR conditional) was placed. Clip quality control microbiology supervisor: R&V. - One 14 mm polyp in the [...] Lindo MD ENDOSCOPY PROCEDURES Final Result * (ABNORMAL) Hemoglobin A1c (08/20/2024 5:15 AM [...] AM CDT 08/20/2024 6:14 AM CDT us Avril Mims MD LAB BLOOD ORDERABLES Final Result [facility] Department [place] [address] * (ABNORMAL) Lipid panel (08/19/2024 11:58 PM [...] on 2017. HDL 30(L) >=40 mg/dL [facility] Comment: Interpretive Data Ages < or [...] 2017. LDL, calculated 42 <=129 mg/dL [facility] Comment: Interpretive Data Ages < or [...] revised on 2023. Non-HDL Cholesterol 61 mg/dL [facility] Comment: Interpretive Data Ages < or [...] last revised on 2017. Ch[facility]/HDL [facility] 3 [facility] Blood 08/19/2024 11:5 8 PM CDT 08/20/2024 12:26 AM CDT Narrative [facility] - 08/20/2024 8:24 AM CDT reflex us Avril Mims MD LAB BLOOD ORDERABLES Final Result [facility] Department [place] [address] * DIAGNOSTIC MAMMOGRAM BILATERAL W [place] (08/01/2024 [...] RIGHT breast was performed by a trained child care supervisor and by Dr. Hampton . BREAST PARENCHYMAL [...] RIGHT breast was performed by a trained child care supervisor and by Dr. Hampton . BREAST PARENCHYMAL [...] it. Electronically signed by: Efrain Hampton MD Avril Mims MD IMG MAMMO PROCEDURES Final Result from Last 3 Months or Most Recently Relevant to Health Maintenance Insurance [employer] [place] MEDICARE [facility] MEDICARE [facility] Advance Directives For more information, please contact: [phone] * Full Code (Latest Code Status on File) Date Activated Date Inactivated Comments 08/19/2024 1:31 PM 08/22/2024 6:55 PM * Full Code Date Activated Date Inactivated Comments 10/23/2023 7:57 AM 10/23/2023 1:38 PM Care Teams Acquisition Analyst Relationship Specialty Start Date End Date Andrea Chandler MD PCP - General Internal Medicine 03/31/23
--- OUTSIDE RECORDS SUMMARY | 2025-02-06 10:39 | XMS_ITS | Patient Health Record ---
Author Organization [facility] Address [address] [place] [address] Care Team Providers Care Spooling Operator Name Role Phone Madeline Benton Primary [...] Insured Coverage Start Date Coverage End Date [place] Blue Cross Blue [facility] [address] [place] Dor[place] [id number] Arti Corrigan Self - patient is the insured [employer] [place] [address] [place] [address] [id number] Arti Corrigan Self - patient is the insured Medical (General) History Medical History History ICD Code high blood pressure diabetes Surgical History Surgery Date(Month/Year) tonsils removed galbladder removed thumb
--- OUTSIDE RECORDS SUMMARY | 2025-02-06 10:39 | XMS_ITS | Encounter Summary ---
Author Organization [facility] Address [address] [place] [address] Phone Care Team Providers Care Brass Burnisher Name Role Phone Andrea Chandler MD Primary Care Provider [phone] Encounter Details Date Type Department Care Team (Late st Contact Info) Description 01/30/2025 Results Follow-Up [facility] [address] [facility] Advanced Medicine 12th [place] [address] [place] [address] Lou Beltran PA [address] [place] [address] Urea breath test - Social History Tobacco Use Types Packs/Day Years [...] on file Legal 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
[2025-02-06 10:51] LABS: Alanine Aminotransferase 13 U/L (6-35); Albumin Level 3.4 g/dL (3.5-5.1); Alkaline Phosphatase 61 U/L (38-126); Anion Gap 9 mmol/L (4-12); Aspartate Amino Transferase 19 U/L (14-36); Bilirubin,Total 0.2 mg/dL (0.2-1.3); Blood Urea Nitrogen 12 mg/dL (7-17); Calcium 8.8 mg/dL (8.4-10.2); Carbon Dioxide 25 mmol/L (22-30); Chloride 107 mmol/L (98-107); Estimated Glomerular Filt Rate 56; Glucose 253 mg/dL (65-110); Magnesium 1.9 mg/dL (1.6-2.3); Osmolality Calculated 300 mOsm/kg (285-295); Potassium 4.6 mmol/L (3.4-5.0); Sodium 141 mmol/L (137-145); Total Protein 5.5 g/dL (6.3-8.2)
[2025-02-06 10:52] LABS: Band Neutrophils Percent 1 % (0-6); Basophils Absolute Manual 0.08 K/mm3 (0-0.1); Basophils Percent Manual 1 % (0-1); Eosinophils Absolute Manual 0.24 K/mm3 (0.02-0.50); Eosinophils Percent Manual 3 % (1-6); Lymphocytes Absolute Manual 2.43 K/mm3 (1.1-4.5); Lymphocytes Percent Manual 30 % (18-44); Monocytes Absolute Manual 1.21 K/mm3 (0.1-0.90); Monocytes Percent Manual 15 % (3-9); Neutrophils Absolute Manual 4.13 K/mm3 (1.3-6.7); Neutrophils Percent Manual 50 % (46-73); Total Cells Counted 100
== END 2025-02-06 10:00 | disposition home or self-care (01) ==
LOC: CHSLAB 10:01
PROVIDERS: PCP Internal Medicine
DX: C54.1 Malignant neoplasm of endometrium (principal)
CPT/HCPCS: 36415; 80053; 83735; 85025; 85055; 86304

== ENCOUNTER 2025-02-27 13:41 | Outpatient (CLI) | payer MEDICARE, SELFPAY ==
[2025-02-27 14:06] LABS: Hematocrit 33.0 % (35.0-42.0); Hemoglobin 9.7 g/dL (11.7-13.8); Immature Granulocyte Percent A 3.5 % (0.0-0.0); Immature Platelet Fraction Pct 2.5 % (1.0-7.0); Lymphocytes Absolute Auto 2.23 K/mm3 (1.10-4.50); Mean Corpuscular HGB Conc 29.4 g/dL (32-36); Mean Corpuscular Hemoglobin 22.6 pg (27.0-31.0); Mean Corpuscular Volume 76.9 fL (78.0-102.0); Nucleated Red Blood Cells Absolute Auto 0.00 K/mm3 (0.00-0.00); Nucleated Red Blood Cells Perc 0.0 % (0-0.0); Platelet Count Result 586 K/mm3 (150-420); Red Blood Count 4.29 M/mm3 (4.20-5.40); White Blood Count 8.4 K/mm3 (4.8-10.8)
[2025-02-27 14:49] LABS: Band Neutrophils Percent 1 % (0-6); Basophils Absolute Manual 0.08 K/mm3 (0-0.1); Basophils Percent Manual 1 % (0-1); Eosinophils Absolute Manual 0.25 K/mm3 (0.02-0.50); Eosinophils Percent Manual 3 % (1-6); Lymphocytes Absolute Manual 2.35 K/mm3 (1.1-4.5); Lymphocytes Percent Manual 28 % (18-44); Metamyelocytes Percent 1 %; Monocytes Absolute Manual 0.75 K/mm3 (0.1-0.90); Monocytes Percent Manual 9 % (3-9); Neutrophils Absolute Manual 4.87 K/mm3 (1.3-6.7); Neutrophils Percent Manual 57 % (46-73); Total Cells Counted 100
[2025-02-27 15:24] LABS: Alanine Aminotransferase 16 U/L (6-35); Albumin Level 3.9 g/dL (3.5-5.1); Alkaline Phosphatase 63 U/L (38-126); Anion Gap 10 mmol/L (4-12); Aspartate Amino Transferase 24 U/L (14-36); Bilirubin,Total 0.3 mg/dL (0.2-1.3); Blood Urea Nitrogen 15 mg/dL (7-17); Calcium 9.4 mg/dL (8.4-10.2); Carbon Dioxide 26 mmol/L (22-30); Chloride 103 mmol/L (98-107); Estimated Glomerular Filt Rate > 60; Glucose 287 mg/dL (65-110); Magnesium 1.7 mg/dL (1.6-2.3); Osmolality Calculated 298 mOsm/kg (285-295); Potassium 4.0 mmol/L (3.4-5.0); Sodium 139 mmol/L (137-145); Total Protein 6.3 g/dL (6.3-8.2)
--- OUTSIDE RECORDS SUMMARY | 2025-02-27 15:40 | XMS_ITS | Patient Health Record ---
Author Organization [facility] Address [address] [place] [address] Care Team Providers Care Vending Machine Refiller Name Role Phone Madeline Benton Primary Care Provider [phone] Reason For Referral No Information Medications Medication SIG (Take, Route, Frequency, Duration) Notes Start Date End Date Status Jardiance 10 MG Tablet 1 tablet Orally O nce a day; Duration: 30 day(s) Active Cholestyramine 4 GM Packet 1 packet mixe d with water or non-carbonated drink Orally Once a day; Duration: 30 day(s) Active Vitamin B-12 1000 MCG Tablet Chewable as directed Orally Active iron 1 tab Oral; Duration : 14 days Active Cherelle 60 MG Capsule as directed Orally Active metFORMIN HCl 500 MG Tablet 1 tablet wit h a meal Orally Once a day; Duration: 30 day(s) Active Verapamil HCl 40 MG Tablet 1 tablet Oral ly Three times a day; Duration: 30 day(s) Active Atorvastatin Calcium 10 MG Tablet 1 tablet Orally Once a day; Duration: 30 day(s) Active Omeprazole 10 MG Capsule Delayed Release 1 capsule 30 minutes before morning meal Orally Once a day; Duration: 30 day(s) Active Social History Tobacco Use: Social History Observation Description Date Details (start date - stop date) Current Smoker NA - NA Social History Tobacco Use: Social Info Question Answer Notes Tobacco Use/Smoking Are you a current smoker Plan Of Treatment No Information Insurance Providers Payer Name Payer Address Payer Phone Subscriber Number Group Number Insured Name Patient Relationship to Insured Coverage Start Date Coverage End Date [place] Blue Cross Blue Shield [address] [place] [id number] Arti Corrigan Self - patient is the insured [facility] [place] [address] [place] [address] [phone] [id number] Arti Corrigan Self - patient is the insured Medical (General) History Medical History History ICD Code high blood pressure diabetes Surgical History Surgery Date(Month/Year) tonsils removed galbladder removed thumb
--- OUTSIDE RECORDS SUMMARY | 2025-02-27 15:40 | XMS_ITS | Encounter Summary ---
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 Gender Identity Not on file Sexual Orientation Not on file documented as of this encounter Plan of Treatment Not on file documented as of this encounter Procedures Procedure Name Priority Date/Time Associated Diagnosis Comments SCAN - LABS 02/27/2025 2:56 PM CDT documented in this encounter Results * SCAN - LABS (02/27/2025 2:56 PM CDT) Rachael Moncada RN Final Result documented in this encounter Visit Diagnoses Not on filedocumented in this encounter Care Teams Senior Technical Business Analyst Relationship Specialty Start Date End Date Andrea Chandler MD PCP - General Internal Medicine 03/31/23 documented as of this encounter
--- OUTSIDE RECORDS SUMMARY | 2025-02-27 15:40 | XMS_ITS ---
Author Organization [facility] [address] Address [address] [place] [address] Care Team Providers Care Hybrid Technologist Name Role Phone Andrea Chandler MD Primary Care Provider [phone] Active Problems Problem Noted Date Diagnosed Date [...] Plans DOXOrubicin (ADRIAMYCIN) 21 Day Cycles - HAUNTED HISTORY TOUR GUIDE* Plan Start Date:01/12/2025 Plan Provider:Quynh Mims MD Linked Problems Endometrial cancer Treatment Medications Current Day (Day 1 , Cycle 3 - Planned for 03/01/2025) Next Day (Day 1, Cycle 4 - Planned for 03/22/2025) DOXOrubicin (ADRIAMYCIN)DOXOrubicin (ADRIAMYCIN) 2 mg/mL DOXOrubicin (ADRIAMYCIN) [...] DOXOrubicin Liposomal (DOXIL) 28 Day Cycles - HAUNTED HISTORY TOUR GUIDE 5 01/12/2025 DOXOrubicin liposomal (LIPODOX)LIPOSOMA L DOXOrubicin (DOXIL) IVPB in 250 mL Toxicity/Comp lication Quynh Mims MD 1 of 6 cycles started Pembrolizumab 21 Day Cycles - HAUNTED HISTORY TOUR GUIDE (Carbo Completed) 023 01/10/2025 CARBOplatin (PARAPLATIN) IVPB in 250 mL (by AUC: GOG)PACLItaxel (TAXOL) IVPB in 500 mLpembrolizumab (KEYTRUDA)pembrol izumab (KEYTRUDA) IVPB in 100 mL Therapy Complete Quynh Mims MD 27 of 35 cycles completed Lifetime Dose Tracking * Chemical Lifetime Dose Automatic Entry Manual Entr y doxorubicin 120.003 mg/m2 (231.6 mg) 120.003 mg/m2 (231.6 mg) 0 mg/m2 (0 mg) Fluoro Time 0.4 minutes 0.4 minutes 0 minutes doxorubicin HCl pegylated liposomal 39.378 mg/m2 (76 mg) 39.378 mg/m2 (76 mg) 0 mg/m2 (0 mg) doxorubicin isotoxic equivalent (Please manually verify calculation) 159.381 mg/m2 (307.6 mg) 159.381 mg/m2 (307.6 mg) 0 mg/m2 (0 mg) Air kerma at the reference point (Ka,r) 1 mGy 1 mGy 0 mGy DLP 4,378 mGycm 4,378 mGycm 0 mGycm
--- OUTSIDE RECORDS SUMMARY | 2025-02-27 15:41 | XMS_ITS | Clinical Summary ---
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 A 5 mm ground-glass nodule [...] as described above. Narrative 04/13/2019 9:43 AM DIRECTOR OF SEARCH ENGINE MARKETING EXAM DESCRIPTION: CT CHEST W/O CONTRAST REASON [...] Rojelio Yun M.D. RL: DEVIN Report ID: [id number] Reading Location: [id number] Procedure Note Rojelio Yun MD - 04/13/2019 [...] Rojelio Yun M.D. RL: DEVIN Report ID: [id number] Reading Location: [id number] IMPRESSION: 1. A 5 mm ground-glass nodule [...] MEDICAID BLUE CROSS [place] Care Teams Academic Advisement Director Relationship Specialty Start Date End Date Emery Higgins DO [address] [place] [address] PCP - General Internal Medicine 07/13/18
--- OUTSIDE RECORDS SUMMARY | 2025-02-27 15:41 | XMS_ITS | Encounter Summary ---
Author Organization [facility] Address [address] [place] [address] Phone Care Team Providers Care Vp [place] Products Name Role Phone Andrea Chandler MD Primary Care Provider [phone] Encounter Details Date Type Department Care Team (Late st Contact Info) Description 01/30/2025 Results Follow-Up [facility] [address] [facility] Advanced Medicine 12th [place] [address] [place] [address] Lou Beltran PA [address] [place] [address] Urea breath test - Social History Tobacco [...] on file 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
--- OUTSIDE RECORDS SUMMARY | 2025-02-27 15:41 | XMS_ITS | Encounter Summary ---
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
--- OUTSIDE RECORDS SUMMARY | 2025-02-27 15:41 | XMS_ITS | Clinical Summary ---
Author Organization [facility] [address] Address [address] [place] [address] Care Team Providers Care Envelope Folder Name Role Phone Andrea Chandler MD Primary Care Provider [phone] Allergies Active Allergy Reactions Criticality Noted Date Comments Doxorubicin, Peg-Liposomal Shortness of breath,Other (See comments),Chest tightness,Flushing (skin) High 01/11/2025 Throbbing pain in back of head Paclitaxel Shortness of breath,Other (See comments),Flushing (skin) High 05/12/2023 Patient reports feeling hot and thought she was going to pass out, tightness in head Medications montelukast (SINGULAIR) 10 mg tabletIndications :Seasonal Allergic [...] day before surgery. 6 tablet 024 Active pregabalin (LYRICA) 75 mg capsuleIndication s:pt unsure of indication Take 1 capsule (75 mg total) by mouth still runner before breakfast Active acetaminophen (TYLENOL) 500 mg [...] No details specified, Informant: Self, Reported on 02/08/2025 insulin glargine 100 unit/mL (3 mL) pen for injectionIndicati ons:diabetes type 2 Inject 40 Units under the skin 2 (two) times a day Active triamcinolone (KENALOG) 0.1 % ointmentIndicatio ns:Tinea corporis Apply to area of rash/itching on the thigh twice daily. Avoid applying to face/armpits/gr oin. 454 g 1 Active Additional Information Patient taking differently: No details specified, Informant: Self, Reported on 02/08/2025 levothyroxine (SYNTHROID) 125 mcg tabletIndications :hypothyroidism Take 2 tablets (250 mcg total) by mouth daily after lunch Active psyllium 0.52 gram capsuleIndication s:constipation Take 1 capsule (0.52 g total) by mouth daily as needed for constipation Active DULoxetine DR (CYMBALTA) 60 mg capsuleIndication [...] hrs prn for pain. 15 tablet Active omeprazole (PriLOSEC) 40 mg capsule Take 1 capsule (40 mg total) by mouth daily 30 capsule 11 025 2025 Active metoprolol XL (TOPROL-XL) 100 mg 24 hr tablet Take by mouth daily Active verapamil SR (CALAN SR) 240 mg CR tabletIndications :hypertension Take 1 tablet (240 mg total) by mouth every morning 023 2024 Discontinued(T herapy completed) letrozole (FEMARA) 2.5 mg tabletIndications :Endometrial cancer,Peritoneal carcinomatosis (HCC) Take 1 tablet (2.5 mg total) by mouth daily 30 tablet 5 025 2024 Discontinued megestroL (MEGACE) 40 mg tabletIndications :Endometrial Carcinoma Take 1 tablet (40 mg total) by mouth 2 (two) times a day 60 tablet 5 025 2024 Discontinued sulfamethoxazole- trimethoprim (BACTRIM) 800-160 mg per tabletIndications :Breast abscess Take 1 tablet by mouth 2 (two) times a day for 14 days 28 tablet 025 2024 metroNIDAZOLE (FLAGYL) 500 mg tabletIndications :Breast abscess Take 1 tablet (500 mg total) by mouth 3 (three) times a day for 14 days 42 tablet 025 2024 Active Problems Problem Noted Date Diagnosed Date [...] Encounters Date Type Department Care Team Description 02/27/2025 Orders Only [facility] Rachael Moncada RN 02/10/2025 Telephone [facility] Gastroenterology [address] [facility] 12th [place] [address] [place] [address] Leigh Franklin 02/08/2025 11:00 AM CDT Infusion [facility] Gynecologic Oncology [facility] ([facility]) [address] [place] [address] Endometrial cancer (Primary Dx); Peritoneal carcinomatosis (HCC) 02/08/2025 10:00 AM CDT Office Visit [facility] Obstetrics and Gynecology [address] [facility] 13th [place] [address] [place] [address] Avril Mims MD Endometrial cancer 02/08/2025 Orders Only [facility] Obstetrics and Gynecology [address] [facility] 13th [place] [address] [place] [address] Rachael Moncada RN Endometrial cancer (Primary Dx); Pain and swelling of lower leg, left 02/07/2025 Orders Only [facility] Rachael Moncada RN 02/06/2025 Orders Only [facility] Rachael Moncada RN Endometrial cancer (Primary Dx) 02/03/2025 8:21 AM CDT - 02/03/2025 11:59 PM CDT Hospital Encounter [facility] ([facility]) [address] [place] [address] Avril Mims MD Endometrial cancer; Mass of temporal lobe Discharge Disposition: Discharge to home or self care 01/31/2025 Orders Only [facility] Medicine Gastroenterology [address] 2nd [address] [place] [address] Kaylin Floyd LPN 01/30/2025 Results Follow-Up [facility] Medicine Gastroenterology [address] [facility] 12th [place] [address] [place] [address] Lou Beltran PA Urea breath test - 01/30/2025 Telephone [facility] Medicine Obstetrics and Gynecology [address] [facility] 13th [place] [address] [place] [address] Rachael Moncada RN 01/27/2025 9:00 AM CDT [facility] [address] [facility] Floor 8 [place] [address] Britney Joyner PA Breast abscess (Primary Dx) 01/27/2025 8:56 AM CDT - 01/27/2025 11:59 PM CDT Hospital Encounter [facility] - Breast Imaging [address] [facility] Floor 8 [place] [address] Abscess of right breast Discharge Disposition: Discharge to home or self care 01/26/2025 [facility]phone [facility] [address] [facility] Floor 8 [place] [address] Brian Cornejo 01/26/2025 Orders Only [facility] Medicine Surgery [address] [facility] Floor 8 [place] [address] Britney Joyner PA Abscess of right breast (Primary Dx) 01/23/2025 Telephone [facility] Medicine Gastroenterology [address] [facility] 12th [place] [address] [place] [address] Leigh Franklin 01/20/2025 Telephone [facility] Medicine Surgery [address] [facility] Floor 6 [place] [address] Aft, Berenice Sotomayor MD PhD Patient issue/concern 01/20/2025 Telephone [facility] Obstetrics and Gynecology [address] [facility] 13th [place] [address] [place] [address] Rachael Moncada RN 01/18/2025 11:22 AM CDT - 01/18/2025 11:59 PM CDT Hospital Encounter [facility] ([facility]) [address] [place] [address] Discharge Disposition: Discharge to home or self care 01/18/2025 10:30 AM CDT - 01/18/2025 2:58 PM CDT Hospital Encounter [facility] [place] [facility] ([facility]) [address] [place] [address] Dehydration (Primary Dx) Discharge Disposition: Discharge to home or self care 01/18/2025 9:30 AM CDT [facility] ([facility]) [address] [place] [address] Peritoneal carcinomatosis (HCC) (Primary Dx); Endometrial cancer; Rib pain; Fall, initial encounter 01/16/2025 10:00 AM CDT - 01/16/2025 11:59 PM CDT Hospital Encounter [facility] Cardiac Diagnostic Lab [address] [place] [address] [address] [place] [address] Endometrial cancer; Encounter for monitoring cardiotoxic drug therapy Discharge Disposition: Discharge to home or self care 01/12/2025 Telephone [facility] Obstetrics and Gynecology [address] [facility] 13th [place] [address] Rachael Moncada RN 01/11/2025 2:00 PM CDT [facility] [place] [facility] ([facility]) [address] [place] [address] Endometrial cancer (Primary Dx); Peritoneal carcinomatosis (HCC) 01/11/2025 10:44 AM CDT - 01/11/2025 11:59 PM CDT Hospital Encounter [facility] [address] [facility] [place] [facility] [address] [place] [address] Epigastric pain Discharge Disposition: Discharge to home or self care 01/11/2025 10:15 AM CDT Office Visit [facility] Medicine Obstetrics and Gynecology [address] [facility] 13th [place] [address] [place] [address] Avril Mims MD Endometrial cancer (Primary Dx) 01/11/2025 Orders Only [facility] Rachael Moncada RN Encounter for monitoring cardiotoxic drug therapy (Primary Dx); Endometrial cancer 01/10/2025 Orders Only [facility] Rachael Moncada, NADEGE Endometrial cancer (Primary Dx) 01/05/2025 Telephone [facility] [place] [address] [facility] [place] [facility] [address] [place] [address] Karrie Williamson RN 01/02/2025 10:57 AM CDT - 01/02/2025 11:59 PM CDT Hospital Encounter [facility] ([facility]) [address] [place] [address] Discharge Disposition: Discharge to home or self care 01/02/2025 10:56 AM CDT - 01/02/2025 11:59 PM CDT Hospital Encounter [facility] ([facility]) [address] [place] [address] Endometrial cancer; Lung nodule Discharge Disposition: Discharge to home or self care 12/30/2024 Telephone [facility] Medicine Gastroenterology [address] [facility] 2nd Floor [address] [place] [address] Kaylin Floyd LPN 12/22/2024 Results Follow-Up [facility] Medicine Obstetrics and Gynecology [address] [facility] 13th [place] [address] Rachael Moncada, RN CT Chest Abdomen Pelvis W Contrast 12/22/2024 Orders Only [facility] Medicine Obstetrics and Gynecology [address] [facility] 13th [place] [address] Rachael Moncada RN Lung nodule (Primary Dx); Endometrial cancer; Encounter for preprocedural laboratory examination 12/21/2024 10:00 AM CDT [facility] ([facility]) [address] [place] [address] Peritoneal carcinomatosis (HCC) (Primary Dx); Endometrial cancer 12/21/2024 7:25 AM CDT - 12/21/2024 11:59 PM CDT Hospital Encounter [facility] ([facility]) [address] [place] [address] Avril Mims MD Encounter for antineoplastic chemotherapy; Endometrial cancer; Elevated CA-125 Discharge Disposition: Discharge to home or self care 12/20/2024 Orders Only [facility] Rachael Moncada RN Endometrial cancer (Primary Dx) 12/19/2024 8:30 AM CDT Office Visit [facility] Gastroenterology [address] [place] [address] 12th [place] [address] [place] [address] Lou Beltran PA Epigastric pain (Primary Dx); Constipation, unspecified constipation type; Rectal bleeding; History of colon polyps; Family history of colon cancer; Endometrial cancer 12/19/2024 Orders Only [facility] Rachael Rm RN 12/05/2024 4:15 PM CDT Office Visit [facility] Surgery [address] [facility] Floor 8 [place] [address] Berenice Lemos MD PhD Mucinous adenocarcinoma (HCC) (Primary Dx); Mammogram abnormal 11/30/2024 1:00 PM CDT [facility] [place] [facility] ([facility]) [address] [place] [address] Peritoneal carcinomatosis (HCC) (Primary Dx); Endometrial cancer (HCC) 11/30/2024 10:15 AM CDT Office Visit [facility] Obstetrics and Gynecology [address] [place] [address] 13th [place] [address] [place] [address] Avril Mims MD Endometrial cancer (HCC) 11/29/2024 Orders Only [facility] Rachael Moncada RN Endometrial cancer (HCC) (Primary Dx); Encounter for antineoplastic chemotherapy; Elevated CA-125 11/28/2024 Orders Only [facility] Rachael Moncada, [...] on file Legal 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 Gender Identity Not on file Sexual Orientation Not on file Obstetrics History Para Term AB IAB SAB Ectopic Multiple Livin g Live Births 1 1 1 Date Outcome GA Total Labor Labor/2nd/3rd Weight Sex Type Anes PTL Perla A1 A5 Name Clin Para Comments x1 Last Filed Vital Signs Vital Sign Reading Time Taken Comments Blood Pressure 158/67 02/08/2025 10:16 AM CDT Pulse 86 02/08/2025 10:16 AM CDT Temperature 36.8 C (98.3 F) 02/08/2025 10:16 AM CDT Respiratory Rate 16 01/18/2025 1:41 PM CDT Oxygen Saturation 99% 02/08/2025 10:16 AM CDT Inhaled Oxygen Concentration - - Weight 86.7 kg (191 lb 1.6 oz) 02/08/2025 10:16 AM CDT Height 157 cm (5' 1.81) 01/27/2025 8:34 AM CDT Body Mass Index 35.17 01/27/2025 8:34 AM CDT Plan of Treatment [...] 04/26/2021, 08/14/2020, 07/17/2020 Influenza Vaccine (#1) 2025 3, 02/11/2022, 01/31/2019, Additional history exists Hemoglobin A1C 02/19/2025 08/20/2024, 05/0 01/2024, 04/17/2023 Breast Cancer Screening-Mammogram 08/01/2025 025 Lipid Panel 08/19/2025 08/19/2024 Fall Risk Assessment 11/15/2025 11/15/2024 eGFR 01/18/2026 01/18/2025, 0407/2024, 08/20/2024, Additional history exists Colon Cancer Screening-Colonoscopy 08/22/20342024, 10/23/2023 Medical Devices Implanted Type Area Certified Technician Specialist Device Identifier Shelf Expiration Date Model / Serial / Lot [employer] Excela Low Porfile Power Port 8fr 1.6mm 1 Lumen [id number] - [id number] Implanted:Qty: 1 on 05/06/2023 at [facility] [employer] 01/04/2028 [id number] / / [id number] Procedures Procedure Name Priority Date/Time Associated Diagnosis Comments SCAN - LABS 02/27/2025 2:56 PM CDT SCAN - LABS 02/07/2025 8:39 AM CDT SCAN - LABS 02/06/2025 11:20 AM CDT MRI BRAIN W WO CONTRAST Schedule [...] SCAN - LABS 11/28/2024 3:14 PM CDT COLONOSCOPY 08/22/2024 9:46 AM CDT HEMOGLOBIN A1C STAT 08/20/2024 5:15 AM CDT LIPID PANEL Routine 08/19/2024 11:58 PM CDT DIAGNOSTIC MAMMOGRAM BILATERAL W HAROON Schedule Routine, Read Routine (OP Routine) 08/01/2024 2:23 PM CDT Endometrial cancer (HCC) Abnormal breast finding from Last 3 Months or Most Recently Relevant to Health Maintenance Results * SCAN - LABS (02/27/2025 2:56 PM CDT) Rachael Moncada RN Final Result * SCAN - LABS (02/07/2025 8:39 AM CDT) Rachael Moncada RN Final Result * SCAN - LABS (02/06/2025 11:20 AM CDT) us Rachael Monacda RN Final Result * MRI Brain W WO Contrast (02/03/2025 [...] it. Electronically signed by: Savita Ortiz MD Narrative 02/03/2025 11:49 AM CDT EXAMINATION: Magnetic resonance [...] it. Electronically signed by: Savita Ortiz MD Avril Mims MD IMG MRI PROCEDURES F [...] 7 AM CDT 01/18/2025 11:57 AM CDT Andrea Chandler MD LAB POCT ORDERABLES - DEVICE Fi nal Result [facility] [place] [address] * X-ray ribs bilateral 3 views (01/18/2025 [...] signed by: Kelli Caceres MD Marychuy Loomis RANCH COOK IMG XR PROCEDURES Final R esult * [...] NP LAB BLOOD ORDERABLES Jo marsh Result [facility] Department [place] [address] * (ABNORMAL) Differential, auto (01/18/2025 11:17 AM CDT) Neutrophil abs 10.68(H) 1.50 - 6.50 K/cumm Imm gran abs 0.09 0.00 - 0.10 K/cumm [facility] Lymphocyte abs 1.88 0.80 - 3.30 K/cumm [facility] Monocyte abs 0.86(H) 0.20 - 0.80 K/cumm [facility] Eosinophil abs 0.33 0.00 - 0.50 K/cumm [facility] Basophil abs 0.07 0.00 - 0.10 K/cumm [facility] Neutrophil pct 76.8 % [facility] Comment: Interpretive Data Percent cell count reference ranges are not reported, since discordance with absolute values may lead to misinterpretation of CBC data. Current Interpretive Data was last revised on 2017. Imm gran pct 0.6 % [facility] Comment: Interpretive Data Percent cell count reference ranges are not reported, since discordance with absolute values may lead to misinterpretation of CBC data. Current Interpretive Data was last revised on 2017. Lymphocyte pct 13.5 % [facility] Comment: Interpretive Data Percent cell count reference ranges are not reported, since discordance with absolute values may lead to misinterpretation of CBC data. Current Interpretive Data was last revised on 2017. Monocyte pct 6.2 % [facility] Comment: Interpretive Data Percent cell count reference ranges are not reported, since discordance with absolute values may lead to misinterpretation of CBC data. Current Interpretive Data was last revised on 2017. Eosinophil pct 2.4 % [facility] Comment: Interpretive Data Percent cell count reference ranges are not reported, since discordance with absolute values may lead to misinterpretation of CBC data. Current Interpretive Data was last revised on 2017. Basophil pct 0.5 % [facility] Comment: Interpretive Data Percent cell count reference ranges are not reported, since discordance with absolute values may lead to misinterpretation of CBC data. Current Interpretive Data was last revised on 2017. Blood 01/18/2025 11:1 7 AM CDT 01/18/2025 11:35 AM CDT Marychuy Loomis RANCH COOK LAB BLOOD ORDERABLES Jo l Result Performing Organization Address City/State/[facility] Co de Phone Number [facility] Department [place] [address] * (ABNORMAL) CBC with auto differential (01/18/2025 11:17 AM CDT) WBC 13.91(H) 3.80 - 9.90 K/cumm Hgb 9.3(L) 11.9 - 15.5 g/dL [facility] Hct 32.3(L) 35.6 - 45.5 % [facility] Plt 251 150 - 400 K/cumm [facility] MPV 10.9 9.1 - 12.3 fL [facility] RBC 4.34 3.90 - 5.20 M/cumm [facility] MCV 74.4(L) 81.3 - 96.4 fL [facility] MCH 21.4(L) 27.1 - 33.3 pg [facility] MCHC 28.8(L) 32.3 - 35.7 g/dL [facility] RDW CV 21.2(H) 11.1 - 14.9 % [facility] RDW SD 55.9(H) 35.7 - 48.1 fL [facility] NRBC abs 0.00 0.00 - 0.01 K/cumm [facility] Blood 01/18/2025 11:1 7 AM CDT 01/18/2025 11:35 AM CDT Marychuy Loomis NP LAB BLOOD ORDERABLES Jo l Result Performing Organization Address City/[facility] Co de Phone Number [facility] [place] [address] * Phosphorus (01/18/2025 11:17 AM CDT) [facility] Phosphorus, pl 3.5 2.3 - 4.5 mg/dL Blood Venous blood specimen / Unknown 01/18/2025 11:17 AM CDT 01/18/2025 11:35 AM CDT Marychuy Loomis RANCH COOK LAB BLOOD ORDERABLES Jo l Result Performing Organization Address City/[facility] Co de Phone Number [facility] [place] [address] * Magnesium (01/18/2025 11:17 AM CDT) [facility] Magnesium 2.0 1.4 - 2.5 mg/dL Blood Venous blood specimen / Unknown 01/18/2025 11:17 AM CDT 01/18/2025 11:35 AM CDT Marychuy Loomis RANCH COOK LAB BLOOD ORDERABLES Jo l Result Performing Organization Address [facility] Co de Phone Number [facility] [place] [address] * (ABNORMAL) Comprehensive metabolic panel (01/18/2025 11:17 AM CDT) [facility] Sodium 142 135 - 145 mmol/L Potassium, pl 3.6 3.3 - 4.9 mmol/L [facility] Chloride 109 97 - 110 mmol/L [facility] CO2 24 22 - 32 mmol/L [facility] Anion gap 9 2 - 15 mmol/L [facility] BUN 15 6 - 25 mg/dL [facility] Creatinine 0.79 0.60 - 1.10 mg/dL [facility] Glucose 152 70 - 199 mg/dL [facility] Comment: Interpretive Data Fasting glucose >/= 126 [...] 2022. Calcium 8.8 8.5 - 10.3 mg/dL [facility] Bilirubin, total 0.2 0.1 - 1.2 mg/dL [facility] Protein, pl 6.3(L) 6.5 - 8.5 g/dL [facility] Albumin 3.6 3.5 - 5.0 g/dL [facility] Alk phos 93 40 - 130 Units/L [facility] ALT 13 7 - 45 Units/L [facility] AST 17 10 - 45 Units/L [facility] Blood 01/18/2025 11:1 7 AM CDT 01/18/2025 11:35 AM CDT Marychuy Loomis NP LAB BLOOD ORDERABLES Jo marsh Result [facility] Department [place] [address] * TRANSTHORACIC ECHO (TTE) COMPLETE W DOPPLER/CF W CONTRAST (01/16/2025 12:24 PM CDT) Estimated EF 70-75 % CONS SCIMAGE EF Mod BP 50 % CONS SCIMAGE Anatomical Region Laterality Modality Ultrasound 01/16/2025 11:2 6 AM CDT Narrative 01/16/2025 1:23 PM CDT [facility] [place] [address] Transthoracic Echocardiographic Report Patient Name: RHONDA WISEMAN Aminta : 1955 (69y 11m) Gender: F Study Date: 01/16/2025 11:26:12 AM Ht(Inch): 63 Wt(Lb): 184.97 BSA: 1.93 Teacher Selection Specialist: Michel Boykin RDCS Location: [facility] Order Provider: AVRIL MIMS Heart Rate: [...] therapeutic drug level monitoring, and Z79.899 Other sample grader (current) drug therapy. CONCLUSIONS: 1. Normal left [...] 54 - 74 ] MV E Peak Orger 0.5 m/s [ 0.6 - 1.3 ] [...] MD 01/16/2025 1:23:37 PM CDT Procedure Note rAt Murphy MD - 01/16/2025 [facility] Cardiac [place] [address] Transthoracic Echocardiographic Report Patient Name: RHONDA WISEMAN S : 1955 (69y 11m) Gender: F Study Date: 01/16/2025 11:26:12 AM Ht(Inch): 63 Wt(Lb): 184.97 BSA: 1.93 Teacher Selection Specialist: Michel Boykin RDCS Location: [facility] Order Provider:AVRIL MIMS Heart Rate: 82 [...] for therapeuticdrug level monitoring, and Z79.899 Other sample grader (current) drug therapy. CONCLUSIONS: 1. Normal left [...] FDG-PET/CT IMAGING DATE OF STUDY: 01/02/2025 SCANNER: [facility] [employer] (NV1). This is a high-resolution scanner, which [...] obtained. The study was interpreted on the [employer] workstation. The mean liver SUV (reported for quality lab technician purposes) is 2.9. The total scanned area [...] FDG-PET/CT IMAGING DATE OF STUDY: 01/02/2025 SCANNER: [facility] [email or web address] ([email or web address]). This is a high-resolution scanner, which [...] obtained. The study was interpreted on the [employer] workstation. The mean liver SUV (reported for quality lab technician purposes) is 2.9. The total scanned area [...] it. Electronically signed by: Andrez Solis DO Avril Mims MD IMG PET PROCEDURES F [...] SCAN - LABS (11/29/2024 8:42 AM CDT) us Rachael Moncada RN Final Result * SCAN - LABS (11/28/2024 3:14 PM CDT) us Rachael Moncada RN Edited Resul t - Final * Colonoscopy (08/22/2024 9:46 AM CDT) Anatomical Region Laterality Modality Other Narrative Procedure Note Darius Lindo MD - 08/22/2024 9:46 AM CDT [facility] Patient Name: Rhonda Wiseman Procedure Date: 08/22/2024 9:46 AM Date of : 1955 Admit Type: Inpatient Age: 69 Gender: Female Attending MD: Darius Lindo M.D. Room: [facility] ENDOSCOPY ROOM 3 Note Status: Finalized [...] scope was passed under direct vision.The CF [id number] endoscope was introduced through the anus and advanced to the cecum, identified by appendiceal orifice and ileocecal valve. The bowel preparation used was GoLYTELY via split dose instruction. The quality of the bowel preparationwas evaluated using the BBPS (Noble Bowel Preparation Scale) with scores of: Right [...] clip was successfully placed (MR conditional). Clip product safety specialist: [employer]. There was no bleeding at the end [...] retrieved. Clip (MR conditional) was placed. Clip product safety specialist: [employer]. - One 14 mm polyp in the [...] Mims MD LAB BLOOD ORDERABLES Final Result [facility] Department [place] [address] * (ABNORMAL) Lipid panel (08/19/2024 11:58 PM [...] revised on 2017. Triglycerides 99 <=149 mg/dL [facility] Comment: Interpretive Data Ages < or [...] revised on 2017. HDL 30(L) >=40 mg/dL [facility] Comment: Interpretive Data Ages < [...] on 2017. LDL, calculated 42 <=129 mg/dL [facility] Comment: Interpretive Data Ages < [...] NCEP Expert Panel. Circulation 2004;110:227 3. Mike Saleh al. CAMILA Cardiol. 2019September 08;5(5):540-548. doi: 10.1001/[email or web address].2020.0013 Current Interpretive Data was last revised on 2023. Non-HDL Cholesterol 61 mg/dL [facility] Comment: Interpretive Data Ages < [...] last revised on 2017. Chol/HDL ratio 3 [facility] Blood 08/19/2024 11:5 8 PM CDT 08/20/2024 12:26 AM CDT Narrative KRYSTYNA ORTIZ - 08/20/2024 8:24 AM CDT reflex us Avril Mims MD LAB BLOOD ORDERABLES Final Result [facility] Department [place] [address] * DIAGNOSTIC MAMMOGRAM BILATERAL W [place] (08/01/2024 [...] RIGHT breast was performed by a trained manager transition and by Dr. Hampton . BREAST PARENCHYMAL [...] RIGHT breast was performed by a trained manager transition and by Dr. Hampton . BREAST PARENCHYMAL [...] Most Recently Relevant to Health Maintenance Insurance [facility] MEDICARE [facility] [place] [address] MEDICARE IDMO Advance Directives For more information, please contact: [phone] * Full Code (Latest Code Status on File) Date Activated Date Inactivated Comments 08/19/2024 1:31 PM 08/22/2024 6:55 PM * Full Code Date Activated Date Inactivated Comments 10/23/2023 7:57 AM 10/23/2023 1:38 PM Care Teams Envelope Folder Relationship Specialty Start Date End Date Andrea Chandler MD PCP - General Internal Medicine 03/31/23
--- OUTSIDE RECORDS SUMMARY | 2025-02-27 15:41 | XMS_ITS | Clinical Summary ---
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
== END 2025-02-27 13:42 | disposition home or self-care (01) ==
LOC: CHSLAB 13:44
PROVIDERS: PCP Internal Medicine
DX: C54.1 Malignant neoplasm of endometrium (principal)
CPT/HCPCS: 36415; 80053; 83735; 85025; 85055; 86304

== ENCOUNTER 2025-03-20 10:43 | Outpatient (CLI) | payer MEDICARE, MEDICAID, SELFPAY ==
--- OUTSIDE RECORDS SUMMARY | 2025-03-20 09:10 | XMS_ITS | Encounter Summary ---
Author Organization [facility] Address [address] [place] [address] Phone Care Team Providers Care Salad Counter Attendant Name Role Phone Andrea Chandler MD Primary Care Provider [phone] Encounter Details Date Type Department Care Team (Latest Contact Info) Description 03/20/2025 9:10 AM ENGINEERING ADMINISTRATOR [facility] [address] [facility] 12th [place] [address] [place] [address] Lou Beltran PA [address] [place] [address] Epigastric pain (Primary Dx); Rectal bleeding; History of colon polyps; Family history of colon cancer; Endometrial cancer; Peritoneal carcinomatosis (HCC) Social History Tobacco Use Types Packs/Day Years Used Date Smoking Tobacco: Every Day Cigarettes 1.5 49.9 Started: 1975 Passive Smoke Exposure: Current Smokeless Tobacco: Never Tobacco Cessation:Ready to Q uit: No; Counseling Given: Not Answered AUDIT-C Answer Date [...] on file Legal Sex Female 3:27 AM ENGINEERING ADMINISTRATOR Gender Identity Not on file Sexual Orientation Not on file documented as of this encounter Last Filed Vital Signs Vital Sign Reading Time Taken Comments Blood Pressure 163/78 03/20/2025 8:52 AM ENGINEERING ADMINISTRATOR Pulse 81 03/20/2025 8:52 AM ENGINEERING ADMINISTRATOR Temperature 36.2 C (97.2 F) 03/20/2025 8:52 AM ENGINEERING ADMINISTRATOR Respiratory Rate - - Oxygen Saturation - - Inhaled Oxygen Concentration - - Weight 83.5 kg (184 lb) 03/20/2025 8:52 AM ENGINEERING ADMINISTRATOR Height 157.5 cm (5' 2) 03/20/2025 8:52 AM ENGINEERING ADMINISTRATOR Body Mass Index 33.65 03/20/2025 8:52 AM ENGINEERING ADMINISTRATOR documented in this encounter Functional Status documented as of this encounter Progress Notes * Lou Beltran PA - 03/20/2025 9:10 AM CST Reason for visit: Follow up for abdominal pain HPI: Arti Corrigan is a 70 y.o. 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 2.3 cm supra-renal LN, likely rectosigmoid involvement), diagnostic laparoscopy on 09/21/23 with inability to debulk, palliative chemotherapy, breast abscess s/p I&D 11/2024, immunotherapy induced hypothyroidism, HTN, COPD, T2DM, cholecystectomy, colon polyps. She was last seen 12/19/2024 after colonoscopy. She was admitted in August 2024 with rectal bleeding. This had occurred the same day she received a dose of pembro. Hgb 4.9. She was directly admitted to [facility]. She was given 2u pRBCs with repeat Hgb of 7.1. Her Hgb dropped again on 08/20 to 6.9. She recived another 1u pRBC w/ repeat Hgb of 8.3. On 08/21 her Hgb was 8.8. Colonoscopy 08/22 showed multiple colon polyps including a 3 mm polyp in the cecum, removed. One 9 mm polyp in the ascending colon removed. One 14 mm polyp in the ascending colon. Biopsied and tattooed. One 6 mm polyp in the descending colon removed and one polyp in the rectum, biopsied. Path consistent with hyperplastic and adenomas. There was a flat SSA in the ascending colon that was not removed because it was technically difficult. Per GI, she likely bled from a diverticulum. She was not having any rectal bleeding and her Hgb wasstable at time of discharge at 8.8. It was recommended that she follow up with for a repeat colonoscopy in 6 months. At the time of her clinic visit 12/19 had presented with a male friend. She complained of upper epigastric pain which had been occurring for several months. The pain was everyday, intermittent. Eating made it worse. No specific food triggers. No N/V. Appetite/weight stable. She was taking Pepcid but it was helpful. She had occasional constipation. Bowels moved about once a day. Occasionally used a stool softeneror laxative. Had Miralax at home, did not use often, but did work when she used it. Denied blood in stool. She was taking PO iron BID. Ibuprofen- a couple of times per week, stopped and now doing Tylenol Her brother had colon cancer- late 40's H. Pylori breath test negative Started on omeprazole [address] scan C/A/P 12/21/24 showed suspected increase in size of the primary endometrial mass and persistent soft tissue tethering of the rectum and extension into the right ovary. Stable omental/peritoneal carcinomatosis. Additionally noted enlarging solid pulmonarynodule in the right lower lobe suspicious for pulmonary metastasis. She is on palliative chemo treatment. We discussed risks of colonoscopy and prep requirements. Also discussed that the polyp is more flatand technically more difficult to remove and with her endometrial cancer she may have adhesions/tethering which may put her at increased risk of a complication such as perforation. It is unlikely that removal of this polyp will advance her health. We discussed holding off on colonoscopy with polyp removal with plan to re- assess in 6 months. Today, she is seen for follow up. She feels the omeprazole 40 mg daily has helped her stomach pain.Not nearly as bad as it was before and not bothering her much. She may have some discomfort every few days, but tolerable and doesn't last long. No specific triggers. Not affecting her QOL. Denies heartburn, dysphagia, N/V. Appetite is ok. Bowels move daily or every other day. No melena or hematochezia. Had recent breast abscess. Not really using NSAIDs or pain medications. Patient Active Problem List Diagnosis Endometrial cancer Renal cyst, left Absolute anemia Essential hypertension Fatigue Iron deficiency anemia due to chronic blood loss Mucinous adenocarcinoma (HCC) Peritoneal carcinomatosis (HCC) Type 2 diabetes mellitus without complication, with long-term current use of insulin (HCC) Rectal bleeding Mammogram abnormal Abscess of right breast Outpatient Medications Marked as Taking for the 03/20/25 encounter (Office Visit) with Lou Beltran PA Medication Sig Dispense Refill acetaminophen (TYLENOL) 500 mg tablet Take 2 tablets (1,000 mg total) by mouth every 6 (six) hours as needed for pain 60 tablet 0 atorvastatin (LIPITOR) 10 mg tablet Take 1 tablet (10 mg total) by mouth nightly BD Ultra-Fine Mini Pen Needle 31 gauge x 3/16 needle USE TO INJECT INSULIN DIRECTED dexAMETHasone (DECADRON) 4 mg tablet Take 2 tablets daily for Days 2, 3, and 4 following chemotherapy 36 tablet 1 docusate sodium (COLACE) 100 mg capsule Take 1 capsule (100 mg total) by mouth 2 (two) times a day with a glass of water [address] (CYMBALTA) 60 mg capsule Take 1 capsule (60 mg total) by mouth daily 30 capsule 11 ferrous sulfate 325 mg (65 mg of elemental iron) tablet Take 1 tablet (325 mg total) by mouth 2 (two) times a day Patient reports she ran out about a month ago - planning to get more fexofenadine (Cherelle Allergy) 60 mg tablet Take 1 tablet (60 mg total) by mouth every morning ibuprofen (ADVIL,MOTRIN) 600 mg tablet Take 1 tablet (600 mg total) by mouth every 6 (six) hours asneeded for pain 30 tablet 0 insulin degludec (TRESIBA) 100 unit/mL (3 mL) pen for injection Inject under the skin insulin glargine 100 unit/mL (3 mL) pen for injection Inject 40 Units under the skin 2 (two) times a day ketoconazole (NIZORAL) 2 % shampoo Apply topically 2 (two) times a week Use 3 days in a row and then go to 1-2x weekly. Apply to damp skin, lather, leave on 5 minutes, and rinse 120 mL 1 levothyroxine (SYNTHROID) 125 mcg tablet Take 2 tablets (250 mcg total) by mouth daily after lunch LORazepam (ATIVAN) 0.5 mg tablet Take 1 tablet (0.5 mg total) by mouth every 6 (six) hours as needed (Nausea/vomitting) 30 tablet 0 metoprolol XL (TOPROL-XL) 100 mg 24 hr tablet Take by mouth daily metroNIDAZOLE (FLAGYL) 500 mg tablet Take 1 tablet (500 mg total) by mouth 3 (three) times a day for 14 days 42 tablet 0 montelukast (SINGULAIR) 10 mg tablet Take 1 tablet (10 mg total) by mouth every evening multivitamin (MULTIPLE VITAMINS ORAL) Take 1 tablet by mouth every morning neomycin (MYCIFRADIN) 500 mg tablet Take 2 tablets at 1 PM, 2 PM, and 10 PM the day before surgery.6 tablet 0 omeprazole (PriLOSEC) 40 mg capsule Take 1 capsule (40 mg total) by mouth daily 30 capsule 11 ondansetron (ZOFRAN) 8 mg tablet Take 1 tablet (8 mg total) by mouth every 8 (eight) hours as needed for nausea or vomiting 30 tablet 1 oxyCODONE (ROXICODONE) 5 mg immediate release tablet Take 1 tab po every 4 hrs prn for pain. 15 tablet 0 pregabalin (LYRICA) 75 mg capsule Take 1 capsule (75 mg total) by mouth cattle examiner before breakfast psyllium 0.52 gram capsule Take 1 capsule (0.52 g total) by mouth daily as needed for constipation sulfamethoxazole-trimethoprim (BACTRIM) 800-160 mg per tablet Take 1 tablet by mouth 2 (two) times a day for 14 days 28 tablet 0 triamcinolone (KENALOG) 0.1 % ointment Apply to area of rash/itching on the thigh twice daily. Avoid applying to face/armpits/groin. 454 g 1 Review of Systems: ROS reviewed and remain unchanged or updated as noted in HPI. Physical Exam: BP 163/78 Pulse 81 Temp 36.2 ??C (97.2 ??F) Ht 157.5 cm (5' 2) Wt 83.5 kg (184 lb) BMI 33.65 kg/m?? Constitutional: Not in acute distress. Chronically ill appearing. HEENT: Sclera is not icterus. Conjunctiva is pink. Orapharynx is clear and moist. Neck: Supple. No thyromegaly. No lymphadenopathy. Pulmonary: Normal breathing sounds. Cardiovascular: Regular rate and rhythm. Normal S1 and S2. No murmur. Abdomen: Normal bowel sounds. Soft. No tenderness. No distention. Skin: No rash Laboratory data: Records and pertinent lab results were reviewed. Labs 02/27/2025 LFTs NL WBC 8.4 Hgb 9.7 Hct 33.0 MCV 76.9 Lab Results Component Value Date WBC 13.91 (H) 01/18/2025 HGB 9.3 (L) 01/18/2025 HCT 32.3 (L) 01/18/2025 MCV 74.4 (L) 01/18/2025 LABPLAT 251 01/18/2025 Chemistry Component Value Date/Time SODIUM 142 01/18/2025 1117 POTASSIUM 3.6 01/18/2025 1117 CHLORIDE 109 01/18/2025 1117 CO2 24 01/18/2025 1117 BUNSER 15 01/18/2025 1117 CREATININE 0.79 01/18/2025 1117 CREATININE 0.90 10/15/2023 0000 GLUCOSE 152 01/18/2025 1117 Component Value Date/Time CALCIUM 8.8 01/18/2025 1117 ALKPHOS 93 01/18/2025 1117 AST 17 01/18/2025 1117 ALT 13 01/18/2025 1117 BILITOT 0.2 01/18/2025 1117 Urea breath test neg 01/2025 Endoscopy: Colonoscopy 08/22/2024 Dr. Lindo (rectal bleeding, last colonoscopy 1 yr ago) - One 3 mm polyp in the cecum, removed with a jumbo cold forceps. Resected and retrieved. - One 9 mm polyp in the ascending colon, removed using injection-lift and a hot snare. Resected andretrieved. Clip (MR conditional) was placed. 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 - One 14 mm polyp in the ascending colon. Biopsied. Tattooed. - One 6 mm polyp in the descending colon, removed using injection-lift and a cold snare. Resected and retrieved. - One polyp in the rectum. Biopsied. - Diverticulosis in the entire examined colon. Path A. Large bowel, cecal polyp, biopsy - Tubular adenoma. B. Large bowel, ascending colon polyp, biopsy - Tubular adenoma. C. Large bowel, ascending colon polyp, biopsy - Sessile serrated adenoma/lesion. D. Large bowel, descending colon polyp, biopsy - Tubular adenoma. E. Large bowel, rectal polyp, biopsy - Hyperplastic polyp. Repeat colonoscopy will be needed to remove the large polyp in the ascending colon (and possible one in rectum) with a decision based on patient's overall condition and prognosis of uterine cancer diagnosis. Colonoscopy 10/23/2023 Dr. Aaron (evaluate primary site of malignancy) - One 7 mm polyp in the cecum, removed with a cold snare. Resected and retrieved. - Diverticulosis in the entire examined colon. - The examination was otherwise normal on direct and retroflexion views. Path SSA F/U 5 yrs EGD 10/23/2023 Dr. Aaron (eval for primary site of malignancy) Normal Imaging: MRI brain 01/2025 1. Redemonstrated peripherally enhancing focus along the right medial temporal lobe, measuring 4 mm, not significantly changed from prior study, might represent partial volume averaging of traversingvessels. Continued attention on follow-up imaging is recommended. 2. No definite enhancing intracranial lesion to suggest metastasis. PET CT 01/02/2025 1. Hypermetabolic endometrial lesion, in keeping with recurrent/progressive disease compared to prior PET/CT. 2. Omental nodularity/carcinomatosis noted. 3. Hypermetabolic right lower lobe nodule, most consistent with pulmonary metastasis. 4. Subareolar FDG uptake, in keeping with sequela of right breast abscess and changes of incision/drainage. 5. Scattered groundglass sub-5 mm pulmonary nodules are subthreshold for PET evaluation and may be infectious or inflammatory. Continued attention on follow-up is recommended. CT C/A/P W 12/21/2024 1. Enlarging solid pulmonary nodule in the right lower lobe is suspicious for pulmonary metastasis. There are also indeterminate groundglass nodules in the bilateral lobes, one of which is new from prior. 2. Suspected increase in size of the primary endometrial mass. Persistent soft tissue tethering of the rectum and extension into the right ovary. 3. Stable omental/peritoneal carcinomatosis. MRI pelvis WO 08/21/2024 1. Significant decrease in tumor burden from 2022 involving the endometrium, cervical canal, and right ovary with decreased involvement of the peritoneal surface and abutment of the anterior mesorectal fat with persistent tethering and fibrosis to the rectosigmoid colon without definite open fistula. 2. Nodular areas of enhancement along the rectum, which could be prominent hemorrhoidal vessels. CT A/P 08/19/2024 WWO 1. No active gastrointestinal bleed. 2. Similar extent of peritoneal/omental soft tissue nodularity and endometrial thickening. CT C/A/P W 07/06/2024 1. Increased thickness of the endometrial cavity. [...] Recommend correlation with with direct physical exam. Assessment/Plan: Diagnoses and all orders for this visit: Epigastric pain Improved on omeprazole. Previously complained of epigastric discomfort x 2-3 months. Pain mostly everyday, intermittent, worsened by eating, but no particular fods. No N/V. It was described as more of an ache. Appetite/weight stable. Pepcid not helpful. Was using NSAIDs intermittently. H. Pylori testing was negative. She is s/p cholecystectomy. LFTs normal. She is on palliative treatment for metastatic IVB uterine cancer and omental nodularity/carcinomatosis. Symptoms are better with omeprazole 40 mg daily. She would like to continue this regimen and continue to monitor symptoms. Rectal bleeding Resolved. She was hospitalized for this August 2024, had a colonoscopy without evidence of active bleeding and ultimately felt to be diverticular bleed that self resolved. She has not had any issues with bleeding since. Her Hgb has remained stable on chemo for endometrial cancer. Continue to monitor. History of colon polyps Family history of colon cancer She had a colonoscopy August 2024 for rectal bleeding which showed extensive diverticulosis, multiple tubular adenomas (removed), and one SSA in the ascending colon that was biopsied but not removed because it was a complex, difficult polypectomy. Recommended returning to the clinic to discuss whether or not to repeat colonoscopy for polypectomy with interventional GI. Notes brother in his 40's with colon cancer. I had previously reviewed her case with GI attending and had discussed risks of colonoscopy and prep requirements. Also discussed that because the polyp is more flat and technically more difficult toremove that with her endometrial cancer she may have adhesions/tethering which may put her at increased risk of a complication such as perforation. It is unlikely that removal of this polyp will advance her health. We decided to hold off on colonoscopy with polyp removal and re-assess in 6 months. She agrees withthis plan. Endometrial cancer Peritoneal carcinomatosis (HCC) History of IVB uterine cancer. Not debulkable initially given extent of carcinomatous disease (R diaphragm, small bowel mesenteric mass (7 x 2 cm). 2.3 cm supra-renal LN, likely rectosigmoid involvement. CT and PET scans have shown recurrent/progressive disease and omental nodularity/carcinomatosis. She is on palliative chemotherapy. Follow up: Return in about 6 months (around 09/17/2025). NEERING ADMINISTRATOR documented in this encounter Plan of Treatment Not on file documented as of this encounter Visit Diagnoses Diagnosis Epigastric pain- Primary Abdominal pain, epigastric Rectal bleeding Hemorrhage of rectum and anus History of colon polyps Family history of colon cancer Family history of malignant neoplasm of gastrointestinal tract Endometrial cancer Malignant neoplasm of corpus uteri, except isthmus Peritoneal carcinomatosis (HCC) documented in this encounter Care Teams Salad Counter Attendant Relationship Specialty Start Date End Date Andrea Chandler MD PCP - General Internal Medicine 03/31/23 documented as of this encounter
[2025-03-20 11:13] LABS: Hematocrit 31.7 % (35.0-42.0); Hemoglobin 9.3 g/dL (11.7-13.8); Immature Granulocyte Percent A 1.2 % (0.0-0.0); Lymphocytes Absolute Auto 2.24 K/mm3 (1.10-4.50); Mean Corpuscular HGB Conc 29.3 g/dL (32-36); Mean Corpuscular Hemoglobin 23.3 pg (27.0-31.0); Mean Corpuscular Volume 79.3 fL (78.0-102.0); Nucleated Red Blood Cells Absolute Auto 0.00 K/mm3 (0.00-0.00); Nucleated Red Blood Cells Perc 0.0 % (0-0.0); Platelet Count Result 444 K/mm3 (150-420); Red Blood Count 4.00 M/mm3 (4.20-5.40); White Blood Count 9.0 K/mm3 (4.8-10.8)
--- OUTSIDE RECORDS SUMMARY | 2025-03-20 11:28 | XMS_ITS ---
Author Organization [facility] [address] Address [address] [place] [address] Care Team Providers Care Carpenter Inspector Name Role Phone Andrea Chandler MD Primary Care Provider [phone] Active Problems Problem Noted Date Diagnosed Date [...] Plans DOXOrubicin (ADRIAMYCIN) 21 Day Cycles - THREAD CUTTER* Plan Start Date:01/12/2025 Plan Provider:Quynh Mims MD Linked Problems Endometrial cancer Treatment Medications Current Day (Day 1 , Cycle 4 - Planned for 03/22/2025) Next Day (Day 1, Cycle 5 - Planned for 04/12/2025) DOXOrubicin (ADRIAMYCIN)DOXOrubicin (ADRIAMYCIN) 2 mg/mL DOXOrubicin (ADRIAMYCIN) [...] DOXOrubicin Liposomal (DOXIL) 28 Day Cycles - THREAD CUTTER 5 01/12/2025 DOXOrubicin liposomal (LIPODOX)LIPOSOMA L DOXOrubicin (DOXIL) IVPB in 250 mL Toxicity/Comp lication Quynh Mims MD 1 of 6 cycles started Pembrolizumab 21 Day Cycles - THREAD CUTTER (Carbo Completed) 023 01/10/2025 CARBOplatin (PARAPLATIN) IVPB in 250 mL (by AUC: GOG)PACLItaxel (TAXOL) IVPB in 500 mLpembrolizumab (KEYTRUDA)pembrol izumab (KEYTRUDA) IVPB in 100 mL Therapy Complete Quynh Mims MD 27 of 35 cycles completed Lifetime Dose Tracking * Chemical Lifetime Dose Automatic Entry Manual Entr y doxorubicin 180.316 mg/m2 (347.4 mg) 180.316 mg/m2 (347.4 mg) 0 mg/m2 (0 mg) Fluoro Time 0.4 minutes 0.4 minutes 0 minutes doxorubicin HCl pegylated liposomal 39.378 mg/m2 (76 mg) 39.378 mg/m2 (76 mg) 0 mg/m2 (0 mg) doxorubicin isotoxic equivalent (Please manually verify calculation) 219.694 mg/m2 (423.4 mg) 219.694 mg/m2 (423.4 mg) 0 mg/m2 (0 mg) Air kerma at the reference point (Ka,r) 1 mGy 1 mGy 0 mGy DLP 4,378 mGycm 4,378 mGycm 0 mGycm
--- OUTSIDE RECORDS SUMMARY | 2025-03-20 11:28 | XMS_ITS | Encounter Summary ---
Author Organization [facility] Address [address] [place] [address] Phone Care Team Providers Care Conductor And Engineer Name Role Phone Andrea Chandler MD Primary Care Provider [phone] Encounter Details Date Type Department Care Team (Late st Contact Info) Description 01/30/2025 Results Follow-Up [facility] [address] [facility] 12th [place] [address] [place] [address] Lou Beltran PA [address] [place] [address] Urea breath test - Social History Tobacco [...] on file Legal Sex 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
--- OUTSIDE RECORDS SUMMARY | 2025-03-20 11:28 | XMS_ITS | Clinical Summary ---
Author Organization [facility] Address [address] [address] Phone Care Team Providers Care Lead Slot Technician Name Role Phone ShawnEmery squires Marian GRIFFIN Primary Care Provider [phone] Allergies No known active allergies Medications metFORMIN [...] on file Legal Sex Female 10:16 AM [employer] SALES REPRESENTATIVE Gender Identity Not on file Sexual Orientation [...] CHEST W/O CONTRAST Routine 04/13/2019 9:22 AM [employer] SERVICES SALES REPRESENTATIVE Lung nodule < 6cm on CT from Last 3 Months or Most Recently Relevant to Health Maintenance Results * CT CHEST W/O CONTRAST (04/13/2019 9:22 AM [employer] SERVICES SALES REPRESENTATIVE) Anatomical Region Laterality Modality Chest N/A Computed Tomogra phy 04/13/2019 9:40 AM [employer] SERVICES SALES REPRESENTATIVE Impressions 04/13/2019 9:43 AM [employer] SERVICES SALES REPRESENTATIVE IMPRESSION: 1. A 5 mm ground-glass nodule [...] as described above. Narrative 04/13/2019 9:43 AM HOT[employer] SERVICES SALES REPRESENTATIVE EXAM DESCRIPTION: CT CHEST W/O CONTRAST REASON [...] Rojelio Yun M.D. RL: DEVIN Report ID: [id number] Reading Location: [id number] Procedure Note Rojelio Yun MD - 04/13/2019 [...] Rojelio Yun M.D. RL: DEVIN Report ID: [id number] Reading Location: [id number] IMPRESSION: 1. A 5 mm ground-glass nodule [...] Insurance MEDICAID BL[place] CR[place] Care Teams Lead Slot Technician Relationship Specialty Start Date End Date Emery Higgins DO [id number] [place] [address] PCP - General Internal Medicine 07/13/18
--- OUTSIDE RECORDS SUMMARY | 2025-03-20 11:28 | XMS_ITS | Clinical Summary ---
Author Organization [facility] [address] [place] [address] Care Team Providers Care Asset Manager Name Role Phone Andrea Chandler MD Primary Care Provider [phone] Allergies Active Allergy Reactions Criticality Noted Date Comments Doxorubicin, Peg-Liposomal Shortness of breath,Other (See comments),Chest tightness,Flushing (skin) High 01/11/2025 Throbbing pain in back of head Paclitaxel Shortness of breath,Other (See comments),Flushing (skin) High 05/12/2023 Patient reports feeling hot and thought she was going to pass out, tightness in head Medications montelukast (SINGULAIR) 10 mg tabletIndicatio ns:Seasonal Allergic Rhinitis Take 1 tablet (10 mg total) by mouth every evening 3 Active atorvastatin (LIPITOR) 10 mg tabletIndicatio ns:hyperlipidem ia Take 1 tablet (10 mg total) by mouth nightly Active fexofenadine (Cherelle Allergy) 60 mg tabletIndicatio ns:Seasonal Allergic Rhinitis Take 1 tablet (60 mg total) by mouth every morning Active multivitamin (MULTIPLE VITAMINS ORAL)Indication s:supplement Take 1 tablet by mouth every morning Active ferrous sulfate 325 mg (65 mg of elemental iron) tabletIndicatio ns:Iron Deficiency Anemia Take 1 tablet (325 mg total) by mouth 2 (two) times a day Patient reports she ran out about a month ago - planning to get more 9 Active neomycin (MYCIFRADIN) 500 mg tablet Take 2 tablets at 1 PM, 2 PM, and 10 PM the day before surgery. 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 Avoid applying to face/armpits/reynaldo in. 454 g 1 4 Active levothyroxine (SYNTHROID) 125 mcg tabletIndicatio ns:hypothyroidi sm Take 2 tablets (250 mcg total) by mouth daily after lunch 4 Active psyllium 0.52 gram capsuleIndicati ons:constipatio n Take 1 capsule (0.52 g total) by mouth daily as needed for constipation Active DULoxetine DR (CYMBALTA) 60 mg capsuleIndicati ons:Neuropathic Pain Take 1 capsule (60 mg total) by mouth daily 30 capsule 11 5 11/08/19 26 Active docusate sodium (COLACE) 100 mg capsuleIndicati ons:constipatio n Take 1 capsule (100 mg total) by mouth 2 (two) times a day with a glass of water 8 capsule 5 Active BD Ultra-Fine Mini Pen Needle 31 gauge x 3/16 needle USE TO INJECT INSULIN DIRECTED 5 Active dexAMETHasone (DECADRON) 4 mg tabletIndicatio ns:Nausea and Vomiting Take 2 tablets daily for Days 2, 3, and 4 following chemotherapy 36 tablet 1 5 Active LORazepam (ATIVAN) 0.5 mg tabletIndicatio ns:Cancer Chemotherapy-In duced Nausea and Vomiting Take 1 tablet (0.5 mg total) by mouth every 6 (six) hours as needed (Nausea/vomittin g) 30 tablet 5 Active ondansetron (ZOFRAN) 8 mg tabletIndicatio ns:Cancer Chemotherapy-In duced Nausea and Vomiting Take 1 tablet (8 mg total) by mouth every 8 (eight) hours as needed for nausea or vomiting 30 tablet 1 5 Active oxyCODONE (ROXICODONE) 5 mg immediate release tabletIndicatio ns:Pain Take 1 tab po every 4 hrs prn for pain. 15 tablet 5 Active omeprazole (PriLOSEC) 40 mg capsule Take 1 capsule (40 mg total) by mouth daily 30 capsule 11 5 02/01/20 26 Active metoprolol XL (TOPROL-XL) 100 mg 24 hr tablet Take by mouth daily Active insulin degludec (TRESIBA) 100 unit/mL (3 mL) pen for injection Inject under the skin 5 Active sulfamethoxazol e-trimethoprim (BACTRIM) 800-160 mg per tabletIndicatio ns:Breast abscess Take 1 tablet by mouth 2 (two) times a day for 14 days 28 tablet 5 03/24/20 25 Active metroNIDAZOLE (FLAGYL) 500 mg tabletIndicatio ns:Breast abscess Take 1 tablet (500 mg total) by mouth 3 (three) times a day for 14 days 42 tablet 5 03/24/20 25 Active Active Problems Problem Noted Date Diagnosed [...] Encounters Date Type Department Care Team Description 03/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 12th [place] [address] [place] [address] Lou Beltran PA Epigastric pain (Primary Dx); Rectal bleeding; History of colon polyps; Family history of colon cancer; Endometrial cancer; Peritoneal carcinomatosis (HCC) 03/10/2025 1:55 PM CDT - 03/10/2025 11:59 PM CDT Hospital Encounter [facility] [address] [place] [address] Discharge Disposition: Discharge to home or self care 03/10/2025 9:09 AM CDT - 03/10/2025 11:59 PM CDT Hospital Encounter [facility] [place] - Breast Imaging [address] [place] [address] 8 [place] [address] Breast abscess Discharge Disposition: Discharge to home or self care 03/10/2025 9:00 AM CDT Office Visit [facility] Medicine Surgery [address] [facility] [place] Floor 8 [place] [address] Britney Joyner PA Breast abscess (Primary Dx); Mammogram abnormal 03/01/2025 11:30 AM CDT Infusion [facility] Gynecologic Oncology [facility] ([facility]) [address] [place] [address] Peritoneal carcinomatosis (HCC) (Primary Dx); Endometrial cancer 03/01/2025 10:30 AM CDT Office Visit [facility] Medicine Obstetrics and Gynecology [address] [facility] 13th [place] [address] [place] [address] Avril Mims MD Endometrial cancer 03/01/2025 9:30 AM CDT Ancillary Procedure [facility] Medicine Vascular Lab at the [facility] [address] [facility] 8th [place] [address] [place] [address] Endometrial cancer; Pain and swelling of lower leg, left 03/01/2025 Orders Only [facility] Rachael Moncada RN 02/27/2025 Orders Only [facility] Rachael Moncada RN Endometrial cancer (Primary Dx) 02/10/2025 Telephone [facility] Gastroenterology [address] [facility] 12th [place] [address] [place] [address] Leigh Franklin 02/08/2025 11:00 AM CDT Infusion [facility] Gynecologic Oncology [facility] ([facility]) [address] [place] [address] Endometrial cancer (Primary Dx); Peritoneal carcinomatosis (HCC) 02/08/2025 10:00 AM CDT Office Visit [facility] Obstetrics and Gynecology [facility] 13th [place] [address] [place] [address] Avril Mims MD Endometrial cancer 02/08/2025 Orders Only [facility] Obstetrics and Gynecology [address] [facility] 13th [place] [address] [place] [address] Rachael Moncada RN Endometrial cancer (Primary Dx); Pain and swelling of lower leg, left 02/07/2025 Orders Only [facility] Rachael Moncada RN 02/06/2025 Orders Only [facility] Rachael Moncada RN Endometrial cancer (Primary Dx) 02/03/2025 8:21 AM CDT - 02/03/2025 11:59 PM CDT Hospital Encounter [facility] Radiology [place] [facility] ([facility]) [address] [place] [address] Avril Mims MD Endometrial cancer; Mass of temporal lobe Discharge Disposition: Discharge to home or self care 01/31/2025 Orders Only [facility] Medicine Gastroenterology [address] [facility] 2nd Floor [address] [place] [address] Kaylin Floyd LPN 01/30/2025 Results Follow-Up [facility] Medicine Gastroenterology [address] [facility] 12th [place] [address] [place] [address] Lou Beltran PA Urea breath test - 01/30/2025 Telephone [facility] Obstetrics and Gynecology [address] [facility] 13th [place] [address] [place] [address] Rachael Moncada RN 01/27/2025 9:00 AM CDT Office Visit [facility] Medicine Surgery [address] [facility] [place] Floor 8 [place] [address] Britney Joyner PA Breast abscess (Primary Dx) 01/27/2025 8:56 AM CDT - 01/27/2025 11:59 PM CDT Hospital Encounter [facility] - Breast Imaging [address] [facility] 8 [place] [address] Abscess of right breast Discharge Disposition: Discharge to home or self care 01/26/2025 Telephone [facility] Medicine Surgery [address] [facility] [place] Floor 8 [place] [address] Brian Cornejo 01/26/2025 Orders Only [facility] Medicine Surgery [address] [facility] 8 [place] [address] Britney Joyner PA Abscess of right breast (Primary Dx) 01/23/2025 Telephone [facility] Medicine Gastroenterology [address] [facility] 12th [place] [address] [place] [address] Leigh Franklin 01/20/2025 Telephone [facility] Medicine Surgery [address] [facility] [place] Floor 6 [place] [address] Aft, Berenice Sotomayor MD PhD Patient issue/concern 01/20/2025 Telephone [facility] Medicine Obstetrics and Gynecology [address] [facility] 13th [place] [address] [place] [address] Rachael Moncada RN 01/18/2025 11:22 AM CDT - 01/18/2025 11:59 PM CDT Hospital Encounter [facility] ([facility]) [address] [place] [address] Discharge Disposition: Discharge to home or self care 01/18/2025 10:30 AM CDT - 01/18/2025 2:58 PM CDT Hospital Encounter [facility] ([facility]) [address] [place] [address] Dehydration (Primary Dx) Discharge Disposition: Discharge to home or self care 01/18/2025 9:30 AM CDT [facility] ([facility]) [address] [place] [address] Peritoneal carcinomatosis (HCC) (Primary Dx); Endometrial cancer; Rib pain; Fall, initial encounter 01/16/2025 10:00 AM CDT - 01/16/2025 11:59 PM CDT Hospital Encounter [facility] Cardiac Diagnostic Lab [address] [place] [address] [address] [place] [address] Endometrial cancer; Encounter for monitoring cardiotoxic drug therapy Discharge Disposition: Discharge to home or self care 01/12/2025 Telephone [facility] Obstetrics and Gynecology [address] [facility] 13th [place] [address] Rachael Moncada RN 01/11/2025 2:00 PM CDT [facility]fusion [facility] Gynecologic Oncology [place] [facility] ([facility]) [address] [place] [address] Endometrial cancer (Primary Dx); Peritoneal carcinomatosis (HCC) 01/11/2025 10:44 AM CDT - 01/11/2025 11:59 PM CDT Hospital Encounter [facility] [address] [facility] [address] [place] [address] Epigastric pain Discharge Disposition: Discharge to home or self care 01/11/2025 10:15 AM CDT Office Visit [facility] Obstetrics and Gynecology [address] [facility] 13th [place] [address] [place] [address] Avril Mims MD Endometrial cancer (Primary Dx) 01/11/2025 Orders Only [facility] Rachael Moncada RN Encounter for monitoring cardiotoxic drug therapy (Primary Dx); Endometrial cancer 01/10/2025 Orders Only [facility] Rachael Moncada RN Endometrial cancer (Primary Dx) 01/05/2025 Telephone [facility] [address] [facility] [address] [place] [address] Karrie Williamson RN 01/02/2025 10:57 AM CDT - 01/02/2025 11:59 PM CDT Hospital Encounter [facility] ([facility]) [address] [place] [address] Discharge Disposition: Discharge to home or self care 01/02/2025 10:56 AM CDT - 01/02/2025 11:59 PM CDT Hospital Encounter [facility] ([facility]) [address] [place] [address] Endometrial cancer; Lung nodule Discharge Disposition: Discharge to home or self care 12/30/2024 Telephone [facility] Gastroenterology [address] [facility] 2nd Floor [address] [place] [address] Kaylin Floyd LPN 12/22/2024 Results Follow-Up [facility] Obstetrics and Gynecology [address] [facility] 13th [place] [address] [place] [address] Chest Abdomen Pelvis W Contrast 12/22/2024 Orders Only [facility] Obstetrics and Gynecology [address] [facility] 13th [place] [address] [place] [address] Rachael Moncada RN Lung nodule (Primary Dx); Endometrial cancer; Encounter for preprocedural laboratory examination 12/21/2024 10:00 AM CDT [facility] Gynecologic [facility] ([facility]) [address] [place] [address] Peritoneal carcinomatosis (HCC) (Primary Dx); Endometrial cancer 12/21/2024 7:25 AM CDT - 12/21/2024 11:59 PM CDT Hospital Encounter [facility]) [address] [place] [address] Avril Mims MD Encounter for antineoplastic chemotherapy; Endometrial cancer; Elevated CA-125 Discharge Disposition: Discharge to home or self care 12/20/2024 Orders Only [facility] Rachael Moncada RN Endometrial cancer (Primary Dx) 12/19/2024 8:30 AM CDT Office Visit [facility] Medicine Gastroenterology [address] [facility] 12th [place] [address] [place] [address] Lou Beltran PA Epigastric pain (Primary Dx); Constipation, unspecified constipation type; Rectal bleeding; History of colon polyps; Family history of colon cancer; Endometrial cancer 12/19/2024 Orders Only [facility] Rachael Moncada [...] on file Legal Sex 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 Gender Identity Not on file Sexual Orientation Not on file Obstetrics History Para Term AB IAB SAB Ectopic Multiple Livin g Live Births 1 1 1 Date Outcome GA Total Labor Labor/2nd/3rd Weight Sex Type Anes PTL Perla A1 A5 Name Clin Para Comments x1 Last Filed Vital Signs Vital Sign Reading Time Taken Comments Blood Pressure 163/78 03/20/2025 8:52 AM PACK PRESS 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 Pulse 81 03/20/2025 8:52 AM PACK PRESS 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 Temperature 36.2 C (97.2 F) 03/20/2025 8:52 AM PACK PRESS OPERATOR Respiratory Rate 16 03/01/2025 9:50 AM CDT Oxygen Saturation 100% 03/01/2025 9:50 AM CDT Inhaled Oxygen Concentration - - Weight 83.5 kg (184 lb) 03/20/2025 8:52 AM PACK PRESS 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 Height 157.5 cm (5' 2) 03/20/2025 8:52 AM PACK PRESS OPERATOR Body Mass Index 33.65 03/20/2025 8:52 AM 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 PRESS 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 Plan of Treatment Health Maintenance Due Date [...] Risk Assessment 11/15/2025 11/15/2024 eGFR 01/18/2026 01/18/2025, 04/1 07/2024, 08/20/2024, Additional history exists Colon Cancer Screening-Colonoscopy 08/22/20342024, 10/23/2023 Medical Devices Implanted Type Area Suspect Artist Supervisor Device Identifier Shelf Expiration Date Model / Serial / Lot [employer] Excela Low Porfile Power Port 8fr 1.6mm 1 Lumen [id number] - [id number] Implanted:Qty: 1 on 05/06/2023 at [facility] [employer] 01/04/2028 [id number] / / [id number] Procedures Procedure Name Priority Date/Time Associated Diagnosis Comments AEROBIC AND ANAEROBIC CULTURE AND GRAM STAIN Routine 03/10/2025 11:00 AM CDT Breast abscess US BREAST RIGHT LIMITED Schedule Routine, Read Routine (OP Routine) 03/10/2025 10:24 AM CDT Breast abscess SCAN - LABS 03/01/2025 11:13 AM CDT US VEIN DUPLEX LOWER EXTREMITY LEFT LIMITED Routine 03/01/2025 9:15 AM CDT Endometrial cancer Pain and swelling of lower leg, left SCAN - LABS 02/27/2025 3:43 PM CDT SCAN - LABS 02/07/2025 8:39 [...] SCAN - LABS 12/19/2024 4:12 PM CDT COLONOSCOPY 08/22/2024 9:46 AM CDT HEMOGLOBIN A1C STAT 08/20/2024 5:15 AM CDT LIPID PANEL Routine 08/19/2024 11:58 PM CDT DIAGNOSTIC MAMMOGRAM BILATERAL W [place] Schedule Routine, Read Routine (OP Routine) 08/01/2024 2:23 PM CDT Endometrial cancer (HCC) Abnormal breast finding from Last 3 Months or Most Recently Relevant to Health Maintenance Results * (ABNORMAL) Aerobic and anaerobic culture and gram stain Abscess Breast, right (03/10/2025 11:00 AM CDT) Direct Specimen Exam Stain: Abundant polymorphonuclear leukocytes seen. Moderate Gram Positive Cocci Few Gram Positive Bacilli Report Final Report: Few Mixed microorganisms. (.) [facility] Organism MIXED MICROORGANISMS. 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 Testing performed by [facility] Microbiology Laboratory ([phone]) Specimens submitted from normally sterile body sites [...] interpretive data was last revised on 2019. us Britney [facility] MICROBIOLOGY - GENERAL [place] Final Result [facility] [place] [address] * US Breast Right Limited (03/10/2025 10:24 AM CDT) Anatomical Region Laterality Modality Breast Right Ultrasound 03/10/2025 10:3 5 AM CDT Impressions 03/10/2025 12:54 PM CDT Unchanged phlegmonous change at the 12:00 and 2:30 subareolar right breast. OVERALL FINAL ASSESSMENT: BI-RADS Category 2: Benign. RECOMMENDATION: 1. Continued clinical management of the right breast infectious/inflammatory changes. 2. Annual screening mammography is recommended and due in July 2025. Dictated by: Alexys Grey MD The radiology attending physician has personally reviewed this study, and had reviewed and/or edited this written report and agrees with it. Electronically signed by: Romana Michael MD Narrative 03/10/2025 12:54 PM CDT EXAMINATION: RIGHT BREAST ULTRASOUND HISTORY: 70-year-old woman presented for follow-up of a right breast abscess initially noticed in July 2024, status post incision and drainage November 2024, now status post 6 weeks of antibiotics. Patient states today that drainage is minimal and symptoms continue to improve. Of note, the pathology of right breast debridement from November was negative for malignancy with prior microbiology showing mixed aerobic and anaerobic organisms. No family history of breast or ovarian cancer. COMPARISON: Right breast ultrasound 01/27/2025, 08/01/2024, 07/15/2024, bilateral mammogram dated 07/15/2024 TECHNIQUE: Directed ultrasound evaluation of the RIGHT breast was performed. Focused examination of the right breast revealed no nipple discharge or skin erythema/warmth/wound. A small firm area in the lower periareolar region is palpated, without significant tenderness to palpation. RIGHT ULTRASOUND FINDINGS: Targeted sonographic examination in the subareolar right breast from the 12:00 to 3 o'clock position was performed. In the 12:00 and 2:30 subareolar right breast, there is unchanged intradermal/subcutaneous phlegmonous change compared to 01/27/2025. No drainable fluid collection or suspicious mass is identified. Brit[facility] MAMMO PROCEDURES Final Resu lt * SCAN - LABS (03/01/2025 11:13 AM CDT) Rachael Moncada RN Final Result * US VEIN DUPLEX LOWER EXTREMITY LEFT LIMITED, UNILATERAL (03/01/2025 9:15 AM CDT) Anatomical Region Laterality Modality Vascular Left Ultrasound 03/01/2025 8:39 AM CDT Narrative 03/01/2025 10:14 AM CDT [facility] - Department of Vascular Surgery, Vascular Laboratory [address] [place] [address] Lower Extremity Venous Ultrasound Report Patient Name: RHONDA WISEMAN : 1955 (70y ) Study Date: 03/01/2025 8:39:58 AM Sex: F Tech: TT Location: [facility] Ref Provider: AVRIL MIMS Quality: Adequate Order Provider: AVRIL MIMS PROCEDURES: Vascular Report: Venous Duplex imaging was performed in the left lower extremity. The common femoral, femoral, popliteal, posterior tibial, peroneal veins were evaluated for patency, spontaneity and phasicity with Doppler, compression and augmentation maneuvers. Great saphenous vein proximal at the junction was evaluated with compression maneuvers. INDICATIONS: C54.1 Malignant neoplasm of endometrium, M79.662 Pain in left lower leg, and M79.89 Other specified soft tissue disorders. FINDINGS: Performing Senior J2Ee Developer: Adebayo Hess RVT. Left: Venous Doppler signals in the left lower extremity are within normal limits for spontaneity and phasicity and respond normally to augmentation maneuvers. No evidence of deep vein thrombus by duplex, proximal to the calf. Comments: Contralateral common femoral vein is imaged for comparison and is patent. Unilateral (limited study) performed per M.D. order. CONCLUSIONS: 1. There is no evidence of acute deep vein thrombosis on the left. Noninvasive venous studies cannot rule out isolated calf vein obstruction. HISTORY: Not identified. PREVIOUS STUDIES: No previous studies for comparison. DISCLAIMER: The study images and the final report will be retained in the patient chart by the Vascular Laboratory for the legally required time period. This chart constitutes the legal record of any testing performed. ATTESTATION: I have reviewed and interpreted the pertinent images and measurements of this study. I attest to the conclusions in the final report that is provided above. Electronically Signed By: Reuben Winn MD [facility] 03/01/2025 10:04:41 AM CDT Procedure Note Reuben Winn MD - 03/01/2025 [facility] - Department of Vascular Surgery,Vascular Laboratory [address] [place] [address] Lower Extremity Venous Ultrasound Report Patient Name: RHONDA WISEMAN : 1955 (70y ) Study Date: 03/01/2025 8:39:58 AM Sex: F Tech: TT Location: [facility] Ref Provider: AVRIL MIMS Quality: Adequate Order Provider: AVRIL MIMS PROCEDURES: Vascular Report: Venous Duplex imaging was performed in the left lower extremity. Thecommon femoral, femoral, popliteal, posterior tibial, peroneal veins were evaluated forpatency, spontaneity and phasicity with Doppler, compression and augmentationmaneuvers. Great saphenous vein proximal at the junction was evaluated with compressionmaneuvers. INDICATIONS: C54.1 Malignant neoplasm of endometrium, M79.662 Pain in left lower leg,and M79.89 Other specified soft tissue disorders. FINDINGS: Performing Senior J2Ee Developer: Adebayo Hess RVT. Left: Venous Doppler signals in the left lower extremity are within normallimits for spontaneity and phasicity and respond normally to augmentation maneuvers.No evidence of deep vein thrombus by duplex, proximal to the calf. Comments: Contralateral common femoral vein is imaged for comparison and is patent.Unilateral (limited study) performed per M.D. order. CONCLUSIONS: 1. There is no evidence of acute deep vein thrombosis on the left.Noninvasive venous studies cannot rule out isolated calf vein obstruction. HISTORY: Not identified. PREVIOUS STUDIES: No previous studies for comparison. DISCLAIMER: The study images and the final report will be retained in the patientchart by the Vascular Laboratory for the legally required time period. This chartconstitutes the legal record of any testing performed. ATTESTATION: I have reviewed and interpreted the pertinent images and measurements ofthis study. I attest to the conclusions in the final report that is provided above. Electronically Signed By: Reuben Winn MD [facility] 03/01/2025 10:04:41 AM CDT us Avril Mims MD [facility] US PROCEDURES Fi nal Result * SCAN - LABS (02/27/2025 3:43 PM CDT) us Rachael Moncada RN Edited Resul t - Final * SCAN - LABS (02/07/2025 8:39 AM CDT) us Rachael Moncada RN Final Result * SCAN - LABS (02/06/2025 11:20 AM CDT) us Rachael Moncada RN Final Result * MRI Brain W [...] POCT ORDERABLES - DEVICE Fi nal Result [facility] Department [place] [address] * X-ray ribs bilateral 3 views (01/18/2025 [...] signed by: Kelli Caceres MD Marychuy Loomis LEGUILLON DEBEADER IMG XR PROCEDURES Final R esult * [...] 01/18/2025 11:35 AM CDT us Marychuy Loomis LEGUILLON DEBEADER LAB BLOOD ORDERABLES Jo marsh Result [facility] [place] [address] * (ABNORMAL) Differential, auto (01/18/2025 11:17 AM CDT) Neutrophil abs 10.68(H) 1.50 - 6.50 K/cumm Imm gran abs 0.09 0.00 - 0.10 K/cumm [facility] Lymphocyte abs 1.88 0.80 - 3.30 K/cumm [facility] Monocyte abs 0.86(H) 0.20 - 0.80 K/cumm [facility] Eosinophil abs 0.33 0.00 - 0.50 K/cumm [facility] Basophil abs 0.07 0.00 - 0.10 K/cumm [facility] Neutrophil pct 76.8 % [facility] Comment: Interpretive Data Percent cell count reference ranges are not reported, since discordance with absolute values may lead to misinterpretation of CBC data. Current Interpretive Data was last revised on 2017. Imm gran pct 0.6 % [facility] Comment: Interpretive Data Percent cell count reference ranges are not reported, since discordance with absolute values may lead to misinterpretation of CBC data. Current Interpretive Data was last revised on 2017. Lymphocyte pct 13.5 % [facility] Comment: Interpretive Data Percent cell count reference ranges are not reported, since discordance with absolute values may lead to misinterpretation of CBC data. Current Interpretive Data was last revised on 2017. Monocyte pct 6.2 % [facility] Comment: Interpretive Data Percent cell count reference ranges are not reported, since discordance with absolute values may lead to misinterpretation of CBC data. Current Interpretive Data was last revised on 2017. Eosinophil pct 2.4 % [facility] Comment: Interpretive Data Percent cell count reference ranges are not reported, since discordance with absolute values may lead to misinterpretation of CBC data. Current Interpretive Data was last revised on 2017. Basophil pct 0.5 % [facility] Comment: Interpretive Data Percent cell count reference ranges are not reported, since discordance with absolute values may lead to misinterpretation of CBC data. Current Interpretive Data was last revised on 2017. Blood 01/18/2025 11:1 7 AM CDT 01/18/2025 11:35 AM CDT Marychuy Loomis LEGUILLON DEBEADER LAB BLOOD ORDERABLES Jo l Result Performing Organization Address City/[facility] Co de Phone Number [facility] [place] [address] * (ABNORMAL) CBC with auto differential (01/18/2025 11:17 AM CDT) WBC 13.91(H) 3.80 - 9.90 K/cumm Hgb 9.3(L) 11.9 - 15.5 g/dL [facility] Hct 32.3(L) 35.6 - 45.5 % [facility] Plt 251 150 - 400 K/cumm [facility] MPV 10.9 9.1 - 12.3 fL [facility] RBC 4.34 3.90 - 5.20 M/cumm [facility] MCV 74.4(L) 81.3 - 96.4 fL [facility] MCH 21.4(L) 27.1 - 33.3 pg [facility] MCHC 28.8(L) 32.3 - 35.7 g/dL [facility] RDW CV 21.2(H) 11.1 - 14.9 % [facility] RDW SD 55.9(H) 35.7 - 48.1 fL [facility] NRBC abs 0.00 0.00 - 0.01 K/cumm [facility] Blood 01/18/2025 11:1 7 AM CDT 01/18/2025 11:35 AM CDT Marychuy Loomis NP LAB BLOOD ORDERABLES Jo marsh Result Performing Organization Address [facility]/ZIP Co de Phone Number [facility] [place] [address] * Phosphorus (01/18/2025 11:17 AM CDT) [facility] Phosphorus, pl 3.5 2.3 - 4.5 mg/dL Blood Venous blood specimen / Unknown 01/18/2025 11:17 AM CDT 01/18/2025 11:35 AM CDT Marychuy Loomis NP LAB BLOOD [place] [address] * Magnesium (01/18/2025 11:17 AM CDT) [facility] Magnesium 2.0 1.4 - 2.5 mg/dL Blood Venous blood specimen / Unknown 01/18/2025 11:17 AM CDT 01/18/2025 11:35 AM CDT Marychuy Loomis LEGUILLON DEBEADER LAB BLOOD ORDERABLES Jo l Result [facility] Department [place] [address] * (ABNORMAL) Comprehensive metabolic panel (01/18/2025 11:17 AM CDT) [facility] Sodium 142 135 - 145 mmol/L Potassium, pl 3.6 3.3 - 4.9 mmol/L [facility] Chloride 109 97 - 110 mmol/L [facility] CO2 24 22 - 32 mmol/L [facility] Anion gap 9 2 - 15 mmol/L [facility] BUN 15 6 - 25 mg/dL [facility] Creatinine 0.79 0.60 - 1.10 mg/dL [facility] Glucose 152 70 - 199 mg/dL [facility] Comment: Interpretive Data Fasting glucose >/= [...] 2022. Calcium 8.8 8.5 - 10.3 mg/dL [facility] Bilirubin, total 0.2 0.1 - 1.2 mg/dL [facility] Protein, pl 6.3(L) 6.5 - 8.5 g/dL [facility] Albumin 3.6 3.5 - 5.0 g/dL [facility] Alk phos 93 40 - 130 Units/L [facility] ALT 13 7 - 45 Units/L [facility] AST 17 10 - 45 Units/L [facility] Blood 01/18/2025 11:1 7 AM CDT 01/18/2025 11:35 AM CDT us Marychuy Loomis LEGUILLON DEBEADER LAB BLOOD ORDERABLES Jo marsh Result [facility] [place] [address] * TRANSTHORACIC ECHO (TTE) COMPLETE W DOPPLER/CF W CONTRAST (01/16/2025 12:24 PM CDT) Estimated EF 70-75 % CONS SCIMAGE EF Mod BP 50 % CONS SCIMAGE Anatomical Region Laterality Modality Ultrasound 01/16/2025 11:2 6 AM CDT Narrative 01/16/2025 1:23 PM CDT [facility] [place] [address] Transthoracic Echocardiographic Report Patient Name: RHONDA WISEMAN S : 1955 (69y 11m) Gender: F Study Date: 01/16/2025 11:26:12 AM Ht(Inch): 63 Wt(Lb): 184.97 BSA: 1.93 Senior J2Ee Developer: Michel Boykin RDCS Location: [facility] Order Provider: AVRIL MIMS Heart Rate: [...] therapeutic drug level monitoring, and Z79.899 Other custodial (current) drug therapy. CONCLUSIONS: 1. Normal left [...] Procedure Note Art Murphy MD - 01/16/2025 [facility] [place] [address] Transthoracic Echocardiographic Report Patient Name: RHONDA WISEMAN S : 1955 (69y 11m) Gender: F Study Date: 01/16/2025 11:26:12 AM Ht(Inch): 63 Wt(Lb): 184.97 BSA: 1.93 Senior J2Ee Developer: Michel Boykin RDCS Location: [facility] Order Provider:AVRIL MIMS Heart Rate: 82 [...] for therapeuticdrug level monitoring, and Z79.899 Other custodial (current) drug therapy. CONCLUSIONS: 1. Normal left [...] FDG-PET/CT IMAGING DATE OF STUDY: 01/02/2025 SCANNER: [facility] [employer] (NV1). This is a high-resolution scanner, which [...] obtained. The study was interpreted on the FastFig workstation. The mean liver SUV (reported for automotive quality engineer purposes) is 2.9. The total scanned area [...] changes of the spine. Procedure Note Andrez Solis, - 01/02/2025 EXAMINATION: TUMOR FDG-PET/CT IMAGING DATE OF STUDY: 01/02/2025 SCANNER: [facility] [employer] (NV1). This is a high-resolution scanner, which [...] obtained. The study was interpreted on the [employer] workstation. The mean liver SUV (reported for automotive quality engineer purposes) is 2.9. The total scanned area [...] Attending MD: Darius Lindo M.D. Room: [facility] ENDOSCOPY ROOM 3 Note Status: Finalized [...] scope was passed under direct vision.The CF [id number] endoscope was introduced through the anus and advanced to the cecum, identified by appendiceal orifice and ileocecal valve. The bowel preparation used was GoLYTELY via split dose instruction. The quality of the bowel preparationwas evaluated using the BBPS (K[place]ett Bowel Preparation Scale) with scores of: Right [...] clip was successfully placed (MR conditional). 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 There was no bleeding at the end [...] retrieved. Clip (MR conditional) was placed. 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 - One 14 mm polyp in the [...] % Estimated Average Glucose 154 mg/dL [facility] Comment: The ADA recommends reporting an estimated Average Glucose (eAG) with all Hemoglobin A1c results using the equation derived from a study of 507 normal and diabetic adults. Minority populations were underrepresented and children were not included. (Diabetes Care 2020; 43(S1): S66-S76). The eAG is not equivalent to a fasting glucose. Blood 08/20/2024 5:15 AM CDT 08/20/2024 6:14 AM CDT Avril Mims MD LAB BLOOD ORDERABLES Final Result [facility] [place] [address] * (ABNORMAL) Lipid panel (08/19/2024 11:58 PM [...] on 2017. Triglycerides 99 <=149 mg/dL [facility] Comment: Interpretive Data Ages < or [...] on 2017. HDL 30(L) >=40 mg/dL [facility] Comment: Interpretive Data Ages < or [...] on 2017. LDL, calculated 42 <=129 mg/dL [facility] Comment: Interpretive Data Ages < or [...] revised on 2023. Non-HDL Cholesterol 61 mg/dL [facility] Comment: Interpretive Data Ages < or [...] last revised on 2017. Chol/HDL ratio 3 [facility] Blood 08/19/2024 11:5 8 PM CDT 08/20/2024 12:26 AM CDT Narrative [facility] - 08/20/2024 8:24 AM CDT reflex us Avril Mims MD LAB BLOOD ORDERABLES Final Result [facility] [place] [address] * DIAGNOSTIC MAMMOGRAM BILATERAL W [place] (08/01/2024 [...] RIGHT breast was performed by a trained dining server and by Dr. Hampton . BREAST PARENCHYMAL [...] RIGHT breast was performed by a trained dining server and by Dr. Hampton . BREAST PARENCHYMAL [...] Relevant to Health Maintenance Insurance BLUE ACCESS ME MEDICARE [facility] MEDICARE [facility] Address: [address] [address] [place] [address] IDPA Advance Directives For more information, please contact: [phone] * Full Code (Latest Code Status on File) Date Activated Date Inactivated Comments 08/19/2024 1:31 PM 08/22/2024 6:55 PM * Full Code Date Activated Date Inactivated Comments 10/23/2023 7:57 AM 10/23/2023 1:38 PM Care Teams Asset Manager Relationship Specialty Start Date End Date Andrea Chandler MD PCP - General Internal Medicine 03/31/23
--- OUTSIDE RECORDS SUMMARY | 2025-03-20 11:28 | XMS_ITS | Encounter Summary ---
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
--- OUTSIDE RECORDS SUMMARY | 2025-03-20 11:28 | XMS_ITS | Clinical Summary ---
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 Gender Identity Not on file Sexual Orientation [...] Scan (General) 2022 COVID-19 Vaccine ( - 2024-2 6 season) 2025 Influenza Adult (#1) 2025 RSV Immunization or 60+ Years (1 - 1-dose 75+ series) 02/13/2032 Hepatitis A Vaccines Aged Out No long er eligible based on patient's age to complete this topic Meningococcal B Vaccine Aged Out No l onger eligible based on patient's age to complete this topic Meningococcal Vaccine Aged Out No basilio nola eligible based on patient's age to complete this topic RSV Immunizations Under 20 Months Aged Out No longer eligible based on patient's age to complete this topic
[2025-03-20 11:34] LABS: Alanine Aminotransferase 15 U/L (6-35); Albumin Level 3.6 g/dL (3.5-5.1); Alkaline Phosphatase 59 U/L (38-126); Anion Gap 6 mmol/L (4-12); Aspartate Amino Transferase 23 U/L (14-36); Bilirubin,Total 1.1 mg/dL (0.2-1.3); Blood Urea Nitrogen 15 mg/dL (7-17); Calcium 8.8 mg/dL (8.4-10.2); Carbon Dioxide 24 mmol/L (22-30); Chloride 110 mmol/L (98-107); Estimated Glomerular Filt Rate 60; Glucose 141 mg/dL (65-110); Magnesium 1.8 mg/dL (1.6-2.3); Osmolality Calculated 292 mOsm/kg (285-295); Potassium 4.3 mmol/L (3.4-5.0); Sodium 140 mmol/L (137-145); Total Protein 5.6 g/dL (6.3-8.2)
== END 2025-03-20 10:44 | disposition home or self-care (01) ==
PROVIDERS: PCP Internal Medicine
DX: C54.1 Malignant neoplasm of endometrium (principal)
CPT/HCPCS: 36415; 80053; 83735; 85025

== ENCOUNTER 2025-04-10 10:33 | Outpatient (CLI) | payer MEDICARE, MEDICAID, SELFPAY ==
[2025-04-10 11:16] LABS: Hematocrit 33.4 % (35.0-42.0); Hemoglobin 9.8 g/dL (11.7-13.8); Immature Granulocyte Percent A 1.8 % (0.0-0.0); Lymphocytes Absolute Auto 1.75 K/mm3 (1.10-4.50); Mean Corpuscular HGB Conc 29.3 g/dL (32-36); Mean Corpuscular Hemoglobin 23.9 pg (27.0-31.0); Mean Corpuscular Volume 81.5 fL (78.0-102.0); Nucleated Red Blood Cells Absolute Auto 0.02 K/mm3 (0.00-0.00); Nucleated Red Blood Cells Perc 0.3 % (0-0.0); Platelet Count Result 451 K/mm3 (150-420); Red Blood Count 4.10 M/mm3 (4.20-5.40); White Blood Count 6.2 K/mm3 (4.8-10.8)
[2025-04-10 12:03] LABS: Alanine Aminotransferase 15 U/L (6-35); Albumin Level 4.1 g/dL (3.5-5.1); Alkaline Phosphatase 62 U/L (38-126); Anion Gap 7 mmol/L (4-12); Aspartate Amino Transferase 25 U/L (14-36); Bilirubin,Total 0.2 mg/dL (0.2-1.3); Blood Urea Nitrogen 14 mg/dL (7-17); Calcium 9.2 mg/dL (8.4-10.2); Carbon Dioxide 29 mmol/L (22-30); Chloride 106 mmol/L (98-107); Estimated Glomerular Filt Rate > 60; Glucose 111 mg/dL (65-110); Magnesium 1.8 mg/dL (1.6-2.3); Osmolality Calculated 295 mOsm/kg (285-295); Potassium 4.2 mmol/L (3.4-5.0); Sodium 142 mmol/L (137-145); Total Protein 6.2 g/dL (6.3-8.2)
--- OUTSIDE RECORDS SUMMARY | 2025-04-10 12:06 | XMS_ITS ---
Author Organization [facility] [address] Address [address] [place] [address] Care Team Providers Care Radiocommunications Technician Name Role Phone Andrea Chandler MD Primary Care Provider [phone] Active Problems Problem Noted Date Diagnosed Date [...] Plans DOXOrubicin (ADRIAMYCIN) 21 Day Cycles - CHIEF GUARD* Plan Start Date:01/12/2025 Plan Provider:Quynh Mims MD Linked Problems Endometrial cancer Treatment Medications Current Day (Day 1 , Cycle 5 - Planned for 04/12/2025) Next Day (Day 1, Cycle 6 - Planned for 05/03/2025) DOXOrubicin (ADRIAMYCIN)DOXOrubicin (ADRIAMYCIN) 2 mg/mL DOXOrubicin (ADRIAMYCIN) [...] DOXOrubicin Liposomal (DOXIL) 28 Day Cycles - CHIEF GUARD 5 01/12/2025 DOXOrubicin liposomal (LIPODOX)LIPOSOMA L DOXOrubicin (DOXIL) IVPB in 250 mL Toxicity/Comp lication Quynh Mims MD 1 of 6 cycles started Pembrolizumab 21 Day Cycles - CHIEF GUARD (Carbo Completed) 023 01/10/2025 CARBOplatin (PARAPLATIN) IVPB in 250 mL (by AUC: GOG)PACLItaxel (TAXOL) IVPB in 500 mLpembrolizumab (KEYTRUDA)pembrol izumab (KEYTRUDA) IVPB in 100 mL Therapy Complete Quynh Mims MD 27 of 35 cycles completed Lifetime Dose Tracking * Chemical Lifetime Dose Automatic Entry Manual Entr y doxorubicin 240.944 mg/m2 (463.2 mg) 240.944 mg/m2 (463.2 mg) 0 mg/m2 (0 mg) Fluoro Time 0.4 minutes 0.4 minutes 0 minutes doxorubicin HCl pegylated liposomal 39.378 mg/m2 (76 mg) 39.378 mg/m2 (76 mg) 0 mg/m2 (0 mg) doxorubicin isotoxic equivalent (Please manually verify calculation) 280.322 mg/m2 (539.2 mg) 280.322 mg/m2 (539.2 mg) 0 mg/m2 (0 mg) Air kerma at the reference point (Ka,r) 1 mGy 1 mGy 0 mGy DLP 4,378 mGycm 4,378 mGycm 0 mGycm
--- OUTSIDE RECORDS SUMMARY | 2025-04-10 12:06 | XMS_ITS | Clinical Summary ---
Author Organization [facility] [address] Address [address] [place] [address] Care Team Providers Care Vice Chancellor Name Role Phone Andrea Chandler MD Primary Care Provider [phone] Allergies Active Allergy Reactions Criticality Noted Date Comments Doxorubicin, Peg-Liposomal Shortness of breath,Other (See comments),Chest tightness,Flushing (skin) High 01/11/2025 Throbbing pain in back of head Paclitaxel Shortness of breath,Other (See comments),Flushing (skin) High 05/12/2023 Patient reports feeling hot and thought she was going to pass out, tightness in head Medications montelukast (SINGULAIR) 10 mg tabletIndicati ons:Seasonal Allergic [...] 1 capsule (75 mg total) by mouth cabinet installer before breakfast Active acetaminophen (TYLENOL) 500 [...] glargine 100 unit/mL (3 mL) pen for injectionIndic ations:diabete s type 2 Inject 40 Units under the skin 2 (two) times a day Active triamcinolone (KENALOG) 0.1 % ointmentIndica tions:Tinea corporis Apply to area of rash/itching on the thigh twice daily. Avoid applying to face/armpits/reynaldo in. 454 g 1 4 Active levothyroxine (SYNTHROID) 125 mcg tabletIndicati ons:hypothyroi dism Take 2 tablets (250 mcg total) by mouth daily after lunch 4 Active psyllium 0.52 gram capsuleIndicat ions:constipat ion Take 1 capsule (0.52 g total) by mouth daily as needed for constipation Active DULoxetine DR (CYMBALTA) 60 mg capsuleIndicat ions:Neuropath ic Pain Take 1 capsule (60 mg total) by mouth daily 30 capsule 11 5 11/08/19 26 Active docusate sodium (COLACE) 100 mg capsuleIndicat ions:constipat ion Take 1 capsule (100 mg total) by mouth 2 (two) times a day with a glass of water 8 capsule 5 Active BD Ultra-Fine Mini Pen Needle 31 gauge x 3/16 needle USE TO INJECT INSULIN DIRECTED 5 Active dexAMETHasone (DECADRON) 4 mg tabletIndicati ons:Nausea and Vomiting Take 2 tablets daily for Days 2, 3, and 4 following chemotherapy 36 tablet 1 5 Active LORazepam (ATIVAN) 0.5 mg tabletIndicati ons:Cancer Chemotherapy-I nduced Nausea and Vomiting Take 1 tablet (0.5 mg total) by mouth every 6 (six) hours as needed (Nausea/vomittin g) 30 tablet 5 Active ondansetron (ZOFRAN) 8 mg tabletIndicati ons:Cancer Chemotherapy-I nduced Nausea and Vomiting Take 1 tablet (8 mg total) by mouth every 8 (eight) hours as needed for nausea or vomiting 30 tablet 1 5 Active oxyCODONE (ROXICODONE) 5 mg immediate release tabletIndicati ons:Pain Take 1 tab po every 4 hrs [...] injection Inject under the skin 5 Active sulfamethoxazo le-trimethopri m (BACTRIM) 800-160 mg per tabletIndicati ons:Breast abscess Take 1 tablet by mouth 2 (two) times a day for 14 days 28 tablet 5 03/24/20 25 metroNIDAZOLE (FLAGYL) 500 mg tabletIndicati ons:Breast abscess Take 1 tablet (500 mg total) by mouth 3 (three) times a day for 14 days 42 tablet 5 03/24/20 25 Active Problems Problem Noted Date Diagnosed Date [...] Encounters Date Type Department Care Team Description 03/30/2025 Orders Only [facility] Rachael Moncada RN 03/27/2025 Orders Only [facility] Rachael Moncada RN 03/23/2025 Orders Only [facility] Rachael Moncada RN 03/22/2025 9:45 AM NURSE PRACTITIONER HOME ASSESSMENTS [facility] Advanced Medicine Gynecologic Oncology [facility] ([facility]) [address] [place] [address] Peritoneal carcinomatosis (HCC) (Primary Dx); Endometrial cancer 03/22/2025 8:45 AM NURSE PRACTITIONER HOME ASSESSMENTS Office Visit [facility] Obstetrics and Gynecology [address] [facility] 13th [place] [address] [place] [address] Avril Mims MD Endometrial cancer 03/22/2025 8:00 AM NURSE PRACTITIONER HOME ASSESSMENTS Office Visit [facility] Surgery [address] [facility] Floor 8 [place] [address] Britney Joyner PA Breast abscess (Primary Dx) 03/20/2025 9:10 AM NURSE PRACTITIONER HOME ASSESSMENTS Office Visit [facility] Gastroenterology [address] [facility] 12th [place] [address] [place] [address] Lou Beltran PA Epigastric pain (Primary Dx); Rectal bleeding; History of colon polyps; Family history of colon cancer; Endometrial cancer; Peritoneal carcinomatosis (HCC) 03/20/2025 Orders Only [facility] Rachael Moncada RN Endometrial cancer (Primary Dx); Encounter for antineoplastic chemotherapy; Elevated CA-125 03/10/2025 1:55 PM CDT - 03/10/2025 11:59 PM CDT Hospital Encounter [facility] [address] [place] [address] Discharge Disposition: Discharge to home or self care 03/10/2025 9:09 AM CDT - 03/10/2025 11:59 PM CDT Hospital Encounter [facility] Breast Imaging [address] [facility] [address] 8 [place] [address] Breast abscess Discharge Disposition: Discharge to home or self care 03/10/2025 9:00 AM CDT Office Visit [facility] Medicine Surgery [address] [facility] Floor 8 [place] [address] Britney Joyner PA Breast abscess (Primary Dx); Mammogram abnormal 03/01/2025 11:30 AM CDT [facility] [address] [place] [address] Peritoneal carcinomatosis (HCC) (Primary Dx); Endometrial cancer 03/01/2025 10:30 AM CDT Office Visit [facility] Obstetrics and Gynecology [address] [place] [address] [facility] 13th [place] [address] [place] [address] Avril Mims MD Endometrial cancer 03/01/2025 9:30 AM CDT Ancillary Procedure [facility] Vascular Lab at the [facility] Medicine [address] [facility] 8th [place] [address] [place] [address] Endometrial cancer; Pain and swelling of lower leg, left 03/01/2025 Orders Only [facility] Rachael Moncada, RN 02/27/2025 Orders Only [facility] Rachael Moncada, RN Endometrial cancer (Primary Dx) 02/10/2025 Telephone [facility] Gastroenterology [address] [facility] 12th [place] [address] [place] [address] Leigh Franklin 02/08/2025 11:00 AM CDT [facility] Gynecologic [facility] [address] [place] [address] Endometrial cancer (Primary Dx); Peritoneal carcinomatosis (HCC) 02/08/2025 10:00 AM CDT Office Visit [facility] Obstetrics and Gynecology [facility] 13th [place] [address] [place] [address] Avril Mims MD Endometrial cancer 02/08/2025 Orders Only [facility] Obstetrics and Gynecology [address] [facility] 13th [place] [address] [place] [address] Rachael Moncada RN Endometrial cancer (Primary Dx); Pain and swelling of lower leg, left 02/07/2025 Orders Only [facility] Rachael Moncada RN 02/06/2025 Orders Only [facility] Rachael Moncada RN Endometrial cancer (Primary Dx) 02/03/2025 8:21 AM CDT - 02/03/2025 11:59 PM CDT Hospital Encounter [facility] Radiology [facility] ([facility]) [address] [place] [address] Avril Mims MD Endometrial cancer; Mass of temporal lobe Discharge Disposition: Discharge to home or self care 01/31/2025 Orders Only [facility] Medicine Gastroenterology [address] [facility] 2nd Floor [address] [place] [address] Kaylin Floyd LPN 01/30/2025 Results Follow-Up [facility] Gastroenterology [address] [facility] 12th [place] [address] [place] [address] Lou Beltran PA Urea breath test - 01/30/2025 Telephone [facility] Obstetrics and Gynecology [address] [facility] 13th [place] [address] [place] [address] Rachael Moncada RN 01/27/2025 9:00 AM CDT Office Visit [facility] Medicine Surgery [address] [facility] Floor 8 [place] [address] Britney Joyner PA Breast abscess (Primary Dx) 01/27/2025 8:56 AM CDT - 01/27/2025 11:59 PM CDT Hospital Encounter [facility] Breast [facility] [address] [facility] [address] 8 [place] [address] Abscess of right breast Discharge Disposition: Discharge to home or self care 01/26/2025 [facility] [address] [facility] Floor 8 [place] [address] Brian Cornejo 01/26/2025 Orders Only [facility] Medicine Surgery [address] [facility] Floor 8 [place] [address] Britney Joyner PA Abscess of right breast (Primary Dx) 01/23/2025 Telephone [facility] Medicine Gastroenterology [address] [facility] 12th [place] [address] [place] [address] PoppyCarey hoffkki 01/20/2025 Telephone [facility] Medicine Surgery [address] [facility] Floor 6 [place] [address] Aft, Berenice Sotomayor MD PhD Patient issue/concern 01/20/2025 Telephone [facility] Obstetrics and Gynecology [address] [facility] 13th [place] [address] [place] [address] Rachael Moncada RN 01/18/2025 11:22 AM CDT - 01/18/2025 11:59 PM CDT Hospital Encounter [facility] Radiology [facility] [address] [place] [address] Discharge Disposition: Discharge to home or self care 01/18/2025 10:30 AM CDT - 01/18/2025 2:58 PM CDT Hospital Encounter [facility]) [address] [place] [address] Dehydration (Primary Dx) Discharge Disposition: Discharge to home or self care 01/18/2025 9:30 AM CDT [facility] [address] [place] [address] Peritoneal carcinomatosis (HCC) (Primary Dx); Endometrial cancer; Rib pain; Fall, initial encounter 01/16/2025 10:00 AM CDT - 01/16/2025 11:59 PM CDT Hospital Encounter [facility] North Cardiac Diagnostic Lab [address] [facility] 8th [place] [address] Endometrial cancer; Encounter for monitoring cardiotoxic drug therapy Discharge Disposition: Discharge to home or self care 01/12/2025 Telephone [facility] Obstetrics and Gynecology [address] [facility] 13th [place] [address] Rachael Moncada RN 01/11/2025 2:00 PM CDT [facility] Gynecologic Oncology [facility] ([facility]) [address] [place] [address] Endometrial cancer (Primary Dx); Peritoneal carcinomatosis (HCC) 01/11/2025 10:44 AM CDT - 01/11/2025 11:59 PM CDT Hospital Encounter [facility] [address] [address] Epigastric pain Discharge Disposition: Discharge to home or self care 01/11/2025 10:15 AM CDT Office Visit [facility] Obstetrics and Gynecology [address] [facility] 13th [place] [address] Avril Mims MD Endometrial cancer (Primary Dx) 01/11/2025 Orders Only [facility] Racahel Moncada RN Encounter for monitoring cardiotoxic drug therapy (Primary Dx); Endometrial cancer 01/10/2025 Orders Only [facility] Rachael Moncada RN Endometrial cancer (Primary Dx) from Last 3 Months Immunizations [...] on file Legal Sex Female 3:27 AM NURSE PRACTITIONER HOME ASSESSMENTS Gender Identity Not on file Sexual Orientation Not on file Obstetrics History Para Term AB IAB SAB Ectopic Multiple Livin g Live Births 1 1 1 Date Outcome GA Total Labor Labor/2nd/3rd Weight Sex Type Anes PTL Perla A1 A5 Name Clin Para Comments x1 Last Filed Vital Signs Vital Sign Reading Time Taken Comments Blood Pressure 133/58 03/22/2025 8:36 AM NURSE PRACTITIONER HOME ASSESSMENTS Pulse 77 03/22/2025 8:36 AM NURSE PRACTITIONER HOME ASSESSMENTS Temperature 36.9 C (98.5 F) 03/22/2025 8:36 AM NURSE PRACTITIONER HOME ASSESSMENTS Respiratory Rate 16 03/22/2025 8:36 AM NURSE PRACTITIONER HOME ASSESSMENTS Oxygen Saturation 97% 03/22/2025 8:36 AM NURSE PRACTITIONER HOME ASSESSMENTS Inhaled Oxygen Concentration - - Weight 84.1 kg (185 lb 6.4 oz) 03/22/2025 8:36 A M NURSE PRACTITIONER HOME ASSESSMENTS Height 156.7 cm (5' 1.69) 03/22/2025 8:36 AM CS T Body Mass Index 34.25 03/22/2025 8:36 AM NURSE PRACTITIONER HOME ASSESSMENTS Plan of Treatment Health Maintenance Due Date [...] 08/22/20342024, 10/23/2023 Medical Devices Implanted Type Area Entry Level Finance Device Identifier Shelf Expiration Date Model / Serial / Lot [employer] Excela Low Porfile Power Port 8fr 1.6mm 1 Lumen [id number] - [id number] Implanted:Qty: 1 on 05/06/2023 at [facility] [employer] 01/04/2028 [id number] / / [id number] Procedures Procedure Name Priority Date/Time Associated Diagnosis Comments SCAN - LABS 03/30/2025 3:39 PM NURSE PRACTITIONER HOME ASSESSMENTS SCAN - LABS 03/27/2025 11:11 AM NURSE PRACTITIONER HOME ASSESSMENTS SCAN - LABS 03/23/2025 10:11 AM NURSE PRACTITIONER HOME ASSESSMENTS SCAN - LABS 03/20/2025 2:54 PM NURSE PRACTITIONER HOME ASSESSMENTS AEROBIC AND ANAEROBIC CULTURE AND GRAM STAIN [...] 11:17 AM CDT DIFFERENTIAL AUTO STAT 01/18/2025 11: 17 AM CDT PHOSPHORUS STAT 01/18/2025 11:17 AM [...] PM CDT UREA BREATH TEST Routine 01/11/2025 10:4 6 AM CDT Epigastric pain SCAN - LABS 01/10/2025 11:24 AM CDT COLONOSCOPY 08/22/2024 9:46 AM CDT HEMOGLOBIN A1C STAT 08/20/2024 5:15 AM CDT LIPID PANEL Routine 08/19/2024 11:58 PM CDT DIAGNOSTIC MAMMOGRAM BILATERAL W HAROON Schedule Routine, Read Routine (OP Routine) 08/01/2024 2:23 PM CDT Endometrial cancer (HCC) Abnormal breast finding from Last 3 Months or Most Recently Relevant to Health Maintenance Results * SCAN - LABS (03/30/2025 3:39 PM NURSE PRACTITIONER HOME ASSESSMENTS) us Rachael Moncada RN Final Result * SCAN - LABS (03/27/2025 11:11 AM NURSE PRACTITIONER HOME ASSESSMENTS) us Rachael Moncada RN Final Result * SCAN - LABS (03/23/2025 10:11 AM NURSE PRACTITIONER HOME ASSESSMENTS) us Rachael Moncada RN Final Result * SCAN - LABS (03/20/2025 2:54 PM NURSE PRACTITIONER HOME ASSESSMENTS) us Rachael Moncada RN Edited Resul t - Final * (ABNORMAL) Aerobic and anaerobic culture and gram stain Abscess Breast, right (03/10/2025 11:00 AM CDT) Direct Specimen Exam Stain: Abundant polymorphonuclear leukocytes seen. Moderate Gram Positive Cocci Few Gram Positive Bacilli Report Final Report: Few Mixed microorganisms. (.) [facility] Organism MIXED MICROORGANISMS. [facility] Abscess (Breast, right) 03/10/2025 11:00 AM CDT 03/10/2025 3:32 PM CDT Narrative [facility] ORTI[facility] - 03/13/2025 8:30 AM NURSE PRACTITIONER HOME ASSESSMENTS Specimen received on an ESwab. Testing performed by [facility] Microbiology Laboratory ([phone]) Specimens submitted from normally sterile body sites [...] interpretive data was last revised on 2019. Britney GARCIA LAB MICROBIOLOGY - GENERAL ORDE [place] Final Result [facility] Department [place] [address] * US Breast Right Limited (03/10/2025 10:24 [...] - Department of Vascular Surgery, Vascular Laboratory [address] [place] [address] Lower Extremity Venous Ultrasound Report Patient Name: RHONDA WISEMAN : 1955 (70y ) Study Date: 03/01/2025 8:39:58 AM Sex: F Tech: TT [facility] Ref Provider: AVRIL MIMS Quality: Adequate Order [...] Other specified soft tissue disorders. FINDINGS: Performing Padded Products Finisher: Adebayo Hess RVT. Left: Venous Doppler signals [...] above. Electronically Signed By: Reuben Winn MD FACS 03/01/2025 10:04:41 AM CDT Procedure Note Reuben Winn MD - 03/01/2025 [facility] of Medicine - Department of Vascular Surgery,Vascular Laboratory [address] [place] [address] Lower Extremity Venous Ultrasound Report Patient Name: RHONDA WISEMAN : 1955 (70y ) Study Date: 03/01/2025 8:39:58 AM Sex: F Tech: TT Location: [facility] Provider: AVRIL MIMS Quality: Adequate Order Provider: [...] Other specified soft tissue disorders. FINDINGS: Performing Padded Products Finisher: Adebayo Hess RVT. Left: Venous Doppler signals [...] above. Electronically Signed By: Reuben Winn MD [facility] 03/01/2025 10:04:41 AM CDT Avril Mims MD IMG US PROCEDURES Fi nal Result * SCAN - LABS (02/27/2025 3:43 PM CDT) Rachael Moncada RN Edited Resul t - Final * SCAN - LABS (02/07/2025 8:39 AM CDT) Rachael Moncada RN Final Result * SCAN - LABS (02/06/2025 11:20 AM CDT) Rachael Moncada RN Final Result * MRI [...] Chemistries, Arterial - (01/18/2025 11:57 AM CDT) Pathologist [facility] Lactate POC 1.0 0.7 - 2.0 mmol/L Blood 01/18/2025 11:5 7 AM CDT 01/18/2025 11:57 AM CDT Andrea Chandler MD LAB POCT ORDERABLES - DEVICE Fi nal Result [facility] Department [place] [address] * X-ray ribs bilateral 3 views (01/18/2025 [...] signed by: Kelli Caceres MD Marychuy Loomis LABELING MACHINE OPERATOR IMG XR PROCEDURES Final R esult * eGFR (01/18/2025 11:17 AM CDT) Pathologist [facility] eGFR 82 >=60 mL/min/1. 73 m2 Comment: [...] NP LAB BLOOD ORDERABLES Jo marsh Result [facility] Department [place] [address] * (ABNORMAL) Differential, auto (01/18/2025 11:17 AM CDT) Pathologist [facility] Neutrophil abs 10.68(H) 1.50 - 6.50 K/cumm Imm gran abs 0.09 0.00 - 0.10 K/cumm [facility] Lymphocyte abs 1.88 0.80 - 3.30 K/cumm [facility] Monocyte abs 0.86(H) 0.20 - 0.80 K/cumm [facility] Eosinophil abs 0.33 0.00 - 0.50 K/cumm [facility] Basophil abs 0.07 0.00 - 0.10 K/cumm [facility] Neutrophil pct 76.8 % [facility] Comment: Interpretive Data Percent cell count reference ranges are not reported, since discordance with absolute values may lead to misinterpretation of CBC data. Current Interpretive Data was last revised on 2017. Imm gran pct 0.6 % [facility] Comment: Interpretive Data Percent cell count reference ranges are not reported, since discordance with absolute values may lead to misinterpretation of CBC data. Current Interpretive Data was last revised on 2017. Lymphocyte pct 13.5 % [facility] Comment: Interpretive Data Percent cell count reference ranges are not reported, since discordance with absolute values may lead to misinterpretation of CBC data. Current Interpretive Data was last revised on 2017. Monocyte pct 6.2 % [facility] Comment: Interpretive Data Percent cell count reference ranges are not reported, since discordance with absolute values may lead to misinterpretation of CBC data. Current Interpretive Data was last revised on 2017. Eosinophil pct 2.4 % [facility] Comment: Interpretive Data Percent cell count reference ranges are not reported, since discordance with absolute values may lead to misinterpretation of CBC data. Current Interpretive Data was last revised on 2017. Basophil pct 0.5 % [facility] Comment: Interpretive Data Percent cell count reference ranges are not reported, since discordance with absolute values may lead to misinterpretation of CBC data. Current Interpretive Data was last revised on 2017. Blood 01/18/2025 11:1 7 AM CDT 01/18/2025 11:35 AM CDT Marychuy Loomis NP LAB BLOOD ORDERABLES Jo marsh Result [facility] Department [place] [address] * (ABNORMAL) CBC with auto differential (01/18/2025 11:17 AM CDT) WBC 13.91(H) 3.80 - 9.90 K/cumm Hgb 9.3(L) 11.9 - 15.5 g/dL [facility] Hct 32.3(L) 35.6 - 45.5 % [facility] Plt 251 150 - 400 K/cumm [facility] MPV 10.9 9.1 - 12.3 fL [facility] RBC 4.34 3.90 - 5.20 M/cumm [facility] MCV 74.4(L) 81.3 - 96.4 fL [facility] MCH 21.4(L) 27.1 - 33.3 pg [facility] MCHC 28.8(L) 32.3 - 35.7 g/dL [facility] RDW CV 21.2(H) 11.1 - 14.9 % [facility] RDW SD 55.9(H) 35.7 - 48.1 fL [facility] NRBC abs 0.00 0.00 - 0.01 K/cumm [facility] Blood 01/18/2025 11:1 7 AM CDT 01/18/2025 11:35 AM CDT Marychuy Loomis LABELING MACHINE OPERATOR LAB BLOOD ORDERABLES Jo l Result [facility] Department of [employer] [place] [address] * Phosphorus (01/18/2025 11:17 AM CDT) Pathologist [facility] Phosphorus, pl 3.5 2.3 - 4.5 mg/dL Blood Venous blood specimen / Unknown 01/18/2025 11:17 AM CDT 01/18/2025 11:35 AM CDT Marychuy Loomis LABELING MACHINE OPERATOR LAB BLOOD ORDERABLES Jo l Result [facility] [employer] [place] [address] * Magnesium (01/18/2025 11:17 AM CDT) Magnesium 2.0 1.4 - 2.5 mg/dL Blood Venous blood specimen / Unknown 01/18/2025 11:17 AM CDT 01/18/2025 11:35 AM CDT us Marychuy Loomis NP LAB BLOOD ORDERABLES Jo marsh Result [facility] Department [place] [address] * (ABNORMAL) Comprehensive metabolic panel (01/18/2025 11:17 AM CDT) Sodium 142 135 - 145 mmol/L Potassium, pl 3.6 3.3 - 4.9 mmol/L [facility] Chloride 109 97 - 110 mmol/L [facility] CO2 24 22 - 32 mmol/L [facility] Anion gap 9 2 - 15 mmol/L [facility] BUN 15 6 - 25 mg/dL [facility] Creatinine 0.79 0.60 - 1.10 mg/dL [facility] Glucose 152 70 - 199 mg/dL [facility] Comment: Interpretive Data Fasting glucose >/= [...] 2022. Calcium 8.8 8.5 - 10.3 mg/dL [facility] Bilirubin, total 0.2 0.1 - 1.2 mg/dL [facility] Protein, pl 6.3(L) 6.5 - 8.5 g/dL [facility] Albumin 3.6 3.5 - 5.0 g/dL [facility] Alk phos 93 40 - 130 Units/L [facility] ALT 13 7 - 45 Units/L [facility] AST 17 10 - 45 Units/L [facility] Blood 01/18/2025 11:1 7 AM CDT 01/18/2025 11:35 AM CDT us Marychuy Loomis LABELING MACHINE OPERATOR LAB BLOOD ORDERABLES Jo marsh Result [facility] Department [place] [address] * TRANSTHORACIC ECHO (TTE) COMPLETE W DOPPLER/CF W CONTRAST (01/16/2025 12:24 PM CDT) Estimated EF 70-75 % CONS SCIMAGE EF Mod BP 50 % CONS SCIMAGE Anatomical Region Laterality Modality Ultrasound 01/16/2025 11:2 6 AM CDT Narrative 01/16/2025 1:23 PM CDT [facility] Card[place] [address] Transthoracic Echocardiographic Report Patient Name: RHONDA WISEMAN S : 1955 (69y 11m) Gender: F Study Date: 01/16/2025 11:26:12 AM Ht(Inch): 63 Wt(Lb): 184.97 BSA: 1.93 Padded Products Finisher: Michel Boykin RDCS Location: [facility] Order Provider: AVRIL MIMS Heart Rate: 82 [...] therapeutic drug level monitoring, and Z79.899 Other skilled nursing (current) drug therapy. CONCLUSIONS: 1. Normal left [...] Procedure Note Art Murphy MD - 01/16/2025 [facility] [place] [address] Transthoracic Echocardiographic Report Patient Name: RHONDA WISEMAN S : 1955 (69y 11m) Gender: F Study Date: 01/16/2025 11:26:12 AM Ht(Inch): 63 Wt(Lb): 184.97 BSA: 1.93 Padded Products Finisher: Michel Boykin RDCS Location: [facility] Order Provider:AVRIL MIMS Heart Rate: 82 BMI: [...] for therapeuticdrug level monitoring, and Z79.899 Other dedicated intermodal truck driver (current) drug therapy. CONCLUSIONS: 1. Normal left [...] SCAN - LABS (01/10/2025 11:24 AM CDT) us Rachael Moncada RN Edited Resul t - Final * Colonoscopy (08/22/2024 9:46 AM CDT) Anatomical Region Laterality Modality Other Narrative Procedure Note Darius Lindo MD - 08/22/2024 9:46 AM CDT [facility] Patient Name: Rhonda Wiseman Procedure Date: 08/22/2024 9:46 AM Date of : 1955 Admit Type: Inpatient Age: 69 Gender: Female Attending MD: Darius Lindo M.D. Room: [facility] ENDOSCOPY ROOM 3 Note Status: Finalized Procedure: [...] scope was passed under direct vision.The CF [id number] endoscope was introduced through the anus and advanced to the cecum, identified by appendiceal orifice and ileocecal valve. The bowel preparation used was GoLYTELY via split dose instruction. The quality of the bowel preparationwas evaluated using the BBPS ([place] Bowel Preparation Scale) with scores of: Right [...] clip was successfully placed (MR conditional). 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 There was no bleeding at the end [...] retrieved. Clip (MR conditional) was placed. 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 - One 14 mm polyp in the [...] % Estimated Average Glucose 154 mg/dL [facility] Comment: The ADA recommends reporting an estimated Average Glucose (eAG) with all Hemoglobin A1c results using the equation derived from a study of 507 normal and diabetic adults. Minority populations were underrepresented and children were not included. (Diabetes Care 2020; 43(S1): M36-S76). The eAG is not equivalent to a fasting glucose. Blood 08/20/2024 5:15 AM CDT 08/20/2024 6:14 AM CDT us Avril Mims MD LAB BLOOD ORDERABLES Final Result [facility] Department [place] [address] * (ABNORMAL) Lipid panel (08/19/2024 11:58 PM [...] on 2017. Triglycerides 99 <=149 mg/dL [facility] Comment: Interpretive Data Ages < [...] on 2017. HDL 30(L) >=40 mg/dL [facility] Comment: Interpretive Data Ages < [...] on 2017. LDL, calculated 42 <=129 mg/dL [facility] Comment: Interpretive Data Ages < [...] on 2023. Non-HDL Cholesterol 61 mg/dL [facility] Comment: Interpretive Data Ages < or [...] revised on 2017. Chol/HDL ratio 3 [facility] Blood 08/19/2024 11:5 8 PM CDT 08/20/2024 12:26 AM CDT Narrative [facility] - 08/20/2024 8:24 AM CDT reflex us Avril Mims MD LAB BLOOD ORDERABLES Final Result [facility] Department [place] [address] * DIAGNOSTIC MAMMOGRAM BILATERAL W [place] (08/01/2024 [...] RIGHT breast was performed by a trained safety coordinator and by Dr. Hampton . BREAST PARENCHYMAL [...] RIGHT breast was performed by a trained safety coordinator and by Dr. Hampton . BREAST PARENCHYMAL [...] Electronically signed by: Efrain Hampton MD us Avril Mims MD IMG MAMMO PROCEDURES Final Result from Last 3 Months or Most Recently Relevant to Health Maintenance Insurance [facility] MEDICARE [facility] MEDICARE IDPA Advance Directives For more information, please contact: [phone] * Full Code (Latest Code Status on File) Date Activated Date Inactivated Comments 08/19/2024 1:31 PM 08/22/2024 6:55 PM * Full Code Date Activated Date Inactivated Comments 10/23/2023 7:57 AM 10/23/2023 1:38 PM Care Teams Vice Chancellor Relationship Specialty Start Date End Date Andrea Chandler MD PCP - General Internal Medicine 03/31/23
--- OUTSIDE RECORDS SUMMARY | 2025-04-10 12:06 | XMS_ITS | Encounter Summary ---
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
--- OUTSIDE RECORDS SUMMARY | 2025-04-10 12:06 | XMS_ITS | Clinical Summary ---
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
--- OUTSIDE RECORDS SUMMARY | 2025-04-10 12:06 | XMS_ITS | Clinical Summary ---
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 A 5 mm ground-glass nodule [...] as described above. Narrative 04/13/2019 9:43 AM LINOTYPE MECHANIC EXAM DESCRIPTION: CT CHEST W/O CONTRAST REASON [...] Rojelio Yun M.D. RL: DEVIN Report ID: [id number] Reading Location: [id number] Procedure Note Rojelio Yun MD - 04/13/2019 [...] Rojelio Yun M.D. RL: DEVIN Report ID: [id number] Reading Location: [id number] IMPRESSION: 1. A 5 mm ground-glass nodule [...] Insurance MEDICAID BLUE CROSS [place] Care Teams Political Reporter Relationship Specialty Start Date End Date Emery Higgins DO [address] [place] [address] PCP - General Internal Medicine 07/13/18
== END 2025-04-10 10:34 | disposition home or self-care (01) ==
LOC: CHSLAB 10:38
PROVIDERS: PCP Internal Medicine
DX: C54.1 Malignant neoplasm of endometrium (principal)
CPT/HCPCS: 36415; 80053; 83735; 85025

== ENCOUNTER 2025-05-02 10:27 | Outpatient (CLI) | payer MEDICARE, MEDICAID, SELFPAY ==
[2025-05-02 10:43] LABS: Hematocrit 31.3 % (35.0-42.0); Hemoglobin 9.0 g/dL (11.7-13.8); Immature Granulocyte Percent A 2.5 % (0.0-0.0); Lymphocytes Absolute Auto 1.70 K/mm3 (1.10-4.50); Mean Corpuscular HGB Conc 28.8 g/dL (32-36); Mean Corpuscular Hemoglobin 23.7 pg (27.0-31.0); Mean Corpuscular Volume 82.6 fL (78.0-102.0); Nucleated Red Blood Cells Absolute Auto 0.02 K/mm3 (0.00-0.00); Nucleated Red Blood Cells Perc 0.3 % (0-0.0); Platelet Count Result 406 K/mm3 (150-420); Red Blood Count 3.79 M/mm3 (4.20-5.40); White Blood Count 6.8 K/mm3 (4.8-10.8)
--- OUTSIDE RECORDS SUMMARY | 2025-05-02 11:08 | XMS_ITS | Encounter Summary ---
Author Organization 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
--- OUTSIDE RECORDS SUMMARY | 2025-05-02 11:08 | XMS_ITS | Patient Health Record ---
Author Organization [facility] Address [address] [place] [address] Care Team Providers Care Photo Mask Pattern Generator Name Role Phone Madeline Benton Primary Care [...] Date ADA Blue Cross Blue Shield [address] [place] [address] [id number] Arti Corrigan Self - patient is the insured [facility] [place] [address] [place] [address] [phone] [id number] Arti Corrigan Self - patient is the insured Medical (General) History Medical History History ICD Code high blood pressure diabetes Surgical History Surgery Date(Month/Year) tonsils removed galbladder removed thumb
--- OUTSIDE RECORDS SUMMARY | 2025-05-02 11:08 | XMS_ITS | Clinical Summary ---
Author Organization [facility] [address] Address [address] [place] [address] Care Team Providers Care Ammonia Box Tender Name Role Phone Andrea Chandler MD Primary Care Provider [phone] Allergies Active Allergy Reactions Criticality Noted Date [...] 1 capsule (75 mg total) by mouth assistant warehouse manager before breakfast Active acetaminophen (TYLENOL) 500 mg [...] daily 30 capsule 11 5 026 Active docusate sodium (COLACE) 100 mg capsuleIndicat [...] following chemotherapy 36 tablet 1 5 Active ondansetron (ZOFRAN) 8 mg tabletIndicati [...] daily 30 capsule 11 5 026 Active metoprolol XL (TOPROL-XL) 100 mg 24 hr tablet Take by mouth daily Active insulin degludec (TRESIBA) 100 unit/mL (3 mL) pen for injection Inject under the skin 5 Active LORazepam (ATIVAN) 0.5 mg tabletIndicati ons:Cancer Chemotherapy-I nduced Nausea and Vomiting Take 1 tablet (0.5 mg total) by mouth every 6 (six) hours as needed (Nausea/vomittin g) 30 tablet 5 Active LORazepam (ATIVAN) 0.5 mg tabletIndicati ons:Cancer Chemotherapy-I nduced Nausea and Vomiting Take 1 tablet (0.5 mg total) by mouth every 6 (six) hours as needed (Nausea/vomittin g) 30 tablet 5 025 Discontin ued(Reord er) Active Problems Problem [...] Encounters Date Type Department Care Team Description 04/12/2025 11:00 AM SH[facility]ESH[facility]ER [facility] Gy[facility] ([facility]) [address] [place] [address] Endometrial cancer (Primary Dx) 04/12/2025 9:45 AM SHOESHINER Office Visit [facility] Obstetrics and Gynecology [address] [place] [address] Advanced Medicine 13th [place] [address] [place] [address] Avril Mims MD Endometrial cancer 04/12/2025 7:31 AM SHOESHINER - 04/12/2025 11:59 PM SHOESHINER Hospital Encounter [facility] Radiology [facility] ([facility]) [address] [place] [address] Avril Mims MD Endometrial cancer; Encounter for antineoplastic chemotherapy; Elevated CA-125 Discharge Disposition: Discharge to home or self care 04/12/2025 Orders Only [facility] Rachael Moncada RN Endometrial cancer (Primary Dx) 04/10/2025 Orders Only [facility] Mirian Lund, NADEGE 03/30/2025 Orders Only [facility] Rachael Moncada, RN 03/27/2025 Orders Only [facility] Rachael Moncada, RN 03/23/2025 Orders Only [facility] Rachael Moncada, RN 03/22/2025 9:45 AM [facility]INER [facility] Gynecologic [facility] ([facility]) [address] [place] [address] Peritoneal carcinomatosis (HCC) (Primary Dx); Endometrial cancer 03/22/2025 8:45 AM SHOESHINER Office Visit [facility] Obstetrics and Gynecology [address] [facility] Advanced Medicine 13th [place] [address] [place] [address] Avril Mims MD Endometrial cancer 03/22/2025 8:00 AM SHOESHINER Office Visit [facility] Surgery [address] [facility] Floor 8 [place] [phone] Britney Joyner PA Breast abscess (Primary Dx) 03/20/2025 9:10 AM SHOESHINER Office Visit [facility] Medicine Gastroenterology [address] [facility] 12th [place] [address] [place] [address] Lou Beltran PA Epigastric pain (Primary Dx); Rectal bleeding; History of colon polyps; Family history of colon cancer; Endometrial cancer; Peritoneal carcinomatosis (HCC) 03/20/2025 Orders Only [facility] Rachael Moncada RN Endometrial cancer (Primary Dx); Encounter for antineoplastic chemotherapy; Elevated CA-125 03/10/2025 1:55 PM CDT - 03/10/2025 11:59 PM CDT Hospital Encounter [facility] [address] [place] [address] Discharge Disposition: Discharge to home or self care 03/10/2025 9:09 AM CDT - 03/10/2025 11:59 PM CDT Hospital Encounter [facility] - Breast Imaging [address] [place] [address] 8 [place] [address] Breast abscess Discharge Disposition: Discharge to home or self care 03/10/2025 9:00 AM CDT Office Visit [facility] Medicine Surgery [address] [place] [address] 8 [place] [address] Britney Joynre PA Breast abscess (Primary Dx); Mammogram abnormal 03/01/2025 11:30 AM CDT Infusion [facility] Gynecologic Oncology [facility] ([facility]) [address] [place] [address] Peritoneal carcinomatosis (HCC) (Primary Dx); Endometrial cancer 03/01/2025 10:30 AM CDT Office Visit [facility] Obstetrics and Gynecology [address] [place] [address] 13th [place] [address] [place] [address] Avril Mims MD Endometrial cancer 03/01/2025 9:30 AM CDT Ancillary Procedure [facility] Medicine Vascular Lab at the [facility] Advanced [facility] [address] [facility] 8th [place] [address] [place] [address] Endometrial cancer; Pain and swelling of lower leg, left 03/01/2025 Orders Only [facility] Rachael Moncada RN 02/27/2025 Orders Only [facility] Rachael Moncada RN Endometrial cancer (Primary Dx) 02/10/2025 Telephone [facility] Gastroenterology [address] [facility] Advanced Medicine 12th [place] [address] [place] [address] Rigoberto Leigh 02/08/2025 11:00 AM CDT Infusion [facility] Advanced [facility] Gynecologic Oncology [facility] ([facility]) [address] [place] [address] Endometrial cancer (Primary Dx); Peritoneal carcinomatosis (HCC) 02/08/2025 10:00 AM CDT Office Visit [facility] Obstetrics and Gynecology [address] [facility] 13th [place] [address] [place] [address] Avril Mims MD Endometrial cancer 02/08/2025 Orders Only [facility] Obstetrics and Gynecology [address] [facility] 13th [place] [address] [place] [address] Rachael Moncada RN Endometrial cancer (Primary Dx); Pain and swelling of lower leg, left 02/07/2025 Orders Only [facility] Rachael Moncada RN 02/06/2025 Orders Only [facility] Rachael Moncada RN Endometrial cancer (Primary Dx) 02/03/2025 8:21 AM CDT - 02/03/2025 11:59 PM CDT Hospital Encounter [facility] Radiology [facility] ([facility]) [address] [place] [address] Avril Mims MD Endometrial cancer; Mass of temporal lobe Discharge Disposition: Discharge to home or self care 01/31/2025 Orders Only [facility] Medicine Gastroenterology [address] [facility] 2nd Floor [address] [place] [address] Kaylin Floyd LPN from Last 3 Months Immunizations Immunization Administration [...] Date Smoking Tobacco: Every Day Cigarettes 1.5 50 Started: 1975 Passive Smoke Exposure: Current Smokeless Tobacco: Never Tobacco Cessation:Ready to Q uit: No AUDIT-C Answer Date Recorded Q1: How often [...] on file Legal Sex Female 3:27 AM SHOESHINER Gender Identity Not on file Sexual Orientation Not on file Obstetrics History Para Term AB IAB SAB Ectopic Multiple Livin g Live Births 1 1 1 Date Outcome GA Total Labor Labor/2nd/3rd Weight Sex Type Anes PTL Perla A1 A5 Name Clin Para Comments x1 Last Filed Vital Signs Vital Sign [place] Time Taken Comments Blood Pressure 139/80 04/12/2025 9:40 AM SHOESHINER Pulse 82 04/12/2025 9:40 AM SHOESHINER Temperature 36.8 C (98.2 F) 04/12/2025 9:40 AM SHOESHINER Respiratory Rate 16 04/12/2025 9:40 AM SHOESHINER Oxygen Saturation 97% 04/12/2025 9:40 AM SHOESHINER Inhaled Oxygen Concentration - - Weight 81.4 kg (179 lb 6.4 oz) 04/12/2025 9:40 A M SHOESHINER Height 156.7 cm (5' 1.69) 04/12/2025 9:40 AM CS T Body Mass Index 33.14 04/12/2025 9:40 AM SHOESHINER Plan of Treatment Health Maintenance Due Date [...] 08/22/20342024, 10/23/2023 Medical Devices Implanted Type Area Policyholder Information Clerk Device Identifier Shelf Expiration Date Model / Serial / Lot [employer] Excela Low Porfile Power Port 8fr 1.6mm 1 Lumen [id number] - [id number] Implanted:Qty: 1 on 05/06/2023 at [facility] [employer] 01/04/2028 [id number] / / [id number] Procedures Procedure Name Priority Date/Time Associated Diagnosis Comments CT CHEST ABDOMEN PELVIS W CONTRAST Routine 04/12/2025 8:31 AM SHOESHINER Endometrial cancer Encounter for antineoplastic chemotherapy Elevated CA-125 SCAN - LABS 04/12/2025 SCAN - LABS 04/10/2025 2:55 PM SHOESHINER SCAN - LABS 03/30/2025 3:39 PM SHOESHINER SCAN - LABS 03/27/2025 11:11 AM SHOESHINER SCAN - LABS 03/23/2025 10:11 AM SHOESHINER SCAN - LABS 03/20/2025 2:54 PM SHOESHINER AEROBIC AND ANAEROBIC CULTURE AND GRAM STAIN [...] CDT Endometrial cancer Mass of temporal lobe EGFR STAT 01/18/2025 11:17 AM CDT COLONOSCOPY 08/22/2024 9:46 AM CDT HEMOGLOBIN A1C STAT 08/20/2024 5:15 AM CDT LIPID PANEL Routine 08/19/2024 11:58 PM CDT DIAGNOSTIC MAMMOGRAM BILATERAL W HAROON Schedule Routine, Read Routine (OP Routine) 08/01/2024 2:23 PM CDT Endometrial cancer (HCC) Abnormal breast finding from Last 3 Months or Most Recently Relevant to Health Maintenance Results * CT Chest Abdomen Pelvis W Contrast (04/12/2025 8:31 AM SHOESHINER) Anatomical Region Laterality Modality Body N/A Computed Tomogra phy 04/12/2025 8:55 AM SHOESHINER Impressions 04/12/2025 8:55 AM SHOESHINER 1. Interval decrease in size of a right lower lobe pulmonary nodule, measuring 0.2 cm today, previously 0.8 cm. Interval resolution of the left lower lobe mixed solid and groundglass nodule from 12/21/2024. No new pulmonary nodule is noted. 2. Interval decrease in size of the primary endometrial mass and interval decrease in size of right ovarian enhancement. Unchanged tethering of the right ovary and rectum. 3. Stable omental/peritoneal carcinomatosis. Electronically signed by: Rafa Guzman MD Narrative 04/12/2025 8:55 AM SHOESHINER EXAMINATION: Computed tomography of the chest, abdomen and pelvis with intravenous contrast HISTORY: Endometrial cancer, assessment of disease status on chemotherapy. TECHNIQUE: Transaxial computed tomographic images of the chest, abdomen and pelvis were obtained with intravenous contrast according to the standard protocol after the uneventful administration of 97 mL Opti-Ray 350 intravenous contrast. COMPARISON: FDG pet/CT 01/02 2025, CT chest, abdomen, pelvis 12/21/2024 FINDINGS: Chest: Scarring at the medial aspect of the right middle lobe. There is been interval decrease in the previously described right lower lobe pulmonary nodule at the medial aspect, now measuring 0.2 cm, previously 0.8 cm on 12/21/2024. Unchanged right upper lobe groundglass pulmonary nodule measuring 0.6 cm (series 3 image 52). Decreased conspicuity of a right lower lobe 0.4 cm groundglass nodule (series 3 image 106). The previously described mixed solid and groundglass pulmonary nodule in the left lower lobe has resolved from 12/21 2024. No new or suspicious pulmonary nodule is noted. Centrilobular scattered groundglass pulmonary nodules are noted, which may be seen with respiratory bronchiolitis secondary to smoking. The heart is normal in size. No pericardial effusion. Coronary artery calcifications. The main pulmonary artery measures 2.4 cm and is normal in caliber. The thoracic aorta is normal caliber. Thoracic aortic calcifications. There is a right-sided chest port with tip terminating near the cavoatrial junction. No supraclavicular, axillary, mediastinal, hilar lymphadenopathy. No pleural effusion or pneumothorax. Abdomen/Pelvis: The liver is normal in size and contour. No suspicious focal hepatic lesion is noted on single phase imaging. Patent appearance of the portal vein. The gallbladder is surgically absent. Mild prominence of the common bile duct, likely secondary to postcholecystectomy state. Normal appearance of the pancreas. The spleen is normal in size. Normal right adrenal gland. There is a left adrenal nodule with Hounsfield units 58, measuring approximately 1.9 cm, and was not FDG avid on 2024 pet/CT. Vascular calcifications are seen in close association with the kidneys. Simple left-sided renal cyst. The kidneys enhance symmetrically. No hydronephrosis. Normal appearance of the urinary bladder. Again seen is masslike thickening of the endometrium with central hypodensity and peripheral enhancement which is not optimally assessed on this modality, but appears decreased in size, measuring 2.8 x 2.9 cm, previously 3.5 x 3.4 cm on 12/21/2024 (series 2 image 252). There is associated persistent tethering of the rectum to the posterior aspect of the uterus. There has been interval decrease in size of now punctate enhancement within the right ovary. There is tethering of the right ovary to the right uterine aspect, unchanged. Graft colonic diverticulosis without evidence of diverticulitis. No evidence of bowel obstruction. Normal appearance of the duodenojejunal sweep. No ascites. No pneumoperitoneum. Atherosclerotic calcifications of the abdominal aorta. There is peritoneal carcinomatosis without evidence of new definite peritoneal deposits. For reference, there is a left upper quadrant deposits measuring 1.6 and AP dimension (series 2 image 139) and 2.5 cm in transverse dimension (series 4 image 24) which appears overall unchanged. Degenerative changes are noted throughout the spine. Unchanged T1 superior endplate compression deformity. No suspicious osseous lesion. Procedure Note Rafa Guzman MD - 04/12/2025 EXAMINATION: Computed tomography of the chest, abdomen and pelvis with intravenous contrast HISTORY: Endometrial cancer, assessment of disease status on chemotherapy. TECHNIQUE: Transaxial computed tomographic images of the chest, abdomen and pelvis were obtained with intravenous contrast according to the standard protocol after the uneventful administration of 97 mL Opti-Ray 350 intravenous contrast. COMPARISON: FDG pet/CT 01/02 2025, CT chest, abdomen, pelvis 12/21/2024 FINDINGS: Chest: Scarring at the medial aspect of the right middle lobe. There is been interval decrease in the previously described right lower lobe pulmonary nodule at the medial aspect, now measuring 0.2 cm, previously 0.8 cm on 12/21/2024. Unchanged right upper lobe groundglass pulmonary nodule measuring 0.6 cm (series 3 image 52). Decreased conspicuity of a right lower lobe 0.4 cm groundglass nodule (series 3 image 106). The previously described mixed solid and groundglass pulmonary nodule in the left lower lobe has resolved from 12/21 2024. No new or suspicious pulmonary nodule is noted. Centrilobular scattered groundglass pulmonary nodules are noted, which may be seen with respiratory bronchiolitis secondary to smoking. The heart is normal in size. No pericardial effusion. Coronary artery calcifications. The main pulmonary artery measures 2.4 cm and is normal in caliber. The thoracic aorta is normal caliber. Thoracic aortic calcifications. There is a right-sided chest port with tip terminating near the cavoatrial junction. No supraclavicular, axillary, mediastinal, hilar lymphadenopathy. No pleural effusion or pneumothorax. Abdomen/Pelvis: The liver is normal in size and contour. No suspicious focal hepatic lesion is noted on single phase imaging. Patent appearance of the portal vein. The gallbladder is surgically absent. Mild prominence of the common bile duct, likely secondary to postcholecystectomy state. Normal appearance of the pancreas. The spleen is normal in size. Normal right adrenal gland. There is a left adrenal nodule with Hounsfield units 58, measuring approximately 1.9 cm, and was not FDG avid on 2024 pet/CT. Vascular calcifications are seen in close association with the kidneys. Simple left-sided renal cyst. The kidneys enhance symmetrically. No hydronephrosis. Normal appearance of the urinary bladder. Again seen is masslike thickening of the endometrium with central hypodensity and peripheral enhancement which is not optimally assessed on this modality, but appears decreased in size, measuring 2.8 x 2.9 cm, previously 3.5 x 3.4 cm on 12/21/2024 (series 2 image 252). There is associated persistent tethering of the rectum to the posterior aspect of the uterus. There has been interval decrease in size of now punctate enhancement within the right ovary. There is tethering of the right ovary to the right uterine aspect, unchanged. Graft colonic diverticulosis without evidence of diverticulitis. No evidence of bowel obstruction. Normal appearance of the duodenojejunal sweep. No ascites. No pneumoperitoneum. Atherosclerotic calcifications of the abdominal aorta. There is peritoneal carcinomatosis without evidence of new definite peritoneal deposits. For reference, there is a left upper quadrant deposits measuring 1.6 and AP dimension (series 2 image 139) and 2.5 cm in transverse dimension (series 4 image 24) which appears overall unchanged. Degenerative changes are noted throughout the spine. Unchanged T1 superior endplate compression deformity. No suspicious osseous lesion. IMPRESSION: 1. Interval decrease in size of a right lower lobe pulmonary nodule, measuring 0.2 cm today, previously 0.8 cm. Interval resolution of the left lower lobe mixed solid and groundglass nodule from 12/21/2024. No new pulmonary nodule is noted. 2. Interval decrease in size of the primary endometrial mass and interval decrease in size of right ovarian enhancement. Unchanged tethering of the right ovary and rectum. 3. Stable omental/peritoneal carcinomatosis. Electronically signed by: Rafa Guzman MD Avril Mims MD IMG CT PROCEDURES Fi nal Result * SCAN - LABS (04/12/2025) Rachael Moncada RN Final Result * SCAN - LABS (04/10/2025 2:55 PM SHOESHINER) Mirian Lund RN Edited Result - Final * SCAN - LABS (03/30/2025 3:39 PM SHOESHINER) Rachael Moncada RN Final Result * SCAN - LABS (03/27/2025 11:11 AM SHOESHINER) Rachael Moncada RN Final Result * SCAN - LABS (03/23/2025 10:11 AM SHOESHINER) Rachael Moncada RN Final Result * SCAN - LABS (03/20/2025 2:54 PM SHOESHINER) Result [facility] Rachael Moncada RN Edited Resul t - Final * (ABNORMAL) Aerobic and anaerobic culture and gram stain Abscess Breast, right (03/10/2025 11:00 AM CDT) Direct Specimen Exam Stain: Abundant polymorphonuclear leukocytes seen. Moderate Gram Positive Cocci Few Gram Positive Bacilli Report Final Report: Few Mixed microorganisms. (.) [facility] Organism MIXED MICROORGANISMS. [facility] Abscess (Breast, right) 03/10/2025 11:00 AM CDT 03/10/2025 3:32 PM CDT Narrative [facility] - 03/13/2025 8:30 AM SHOESHINER Specimen received on an ESwab. Testing performed by [facility] Microbiology Laboratory ([phone]) Specimens submitted from normally sterile body sites [...] - GENERAL ORDE PEYTON Final Result [facility] Department [place] [address] * US Breast Right Limited (03/10/2025 10:24 [...] AM CDT Narrative 03/01/2025 10:14 AM CDT [facility] - Department of Vascular Surgery, Vascular Laboratory [address] [place] [address] Lower Extremity Venous Ultrasound Report Patient Name: RHONDA WISEMAN : 1955 (70y ) Study Date: 03/01/2025 8:39:58 AM Sex: F Tech: TT Location: [facility] Provider: AVRIL MIMS Quality: Adequate Order [...] Other specified soft tissue disorders. FINDINGS: Performing Tungsten Refiner: Adebayo Hess RVT. Left: Venous Doppler signals [...] Procedure Note Reuben Winn MD - 03/01/2025 [facility] - Department of Vascular Surgery,Vascular Laboratory [address] [place] [address] Lower Extremity Venous Ultrasound Report Patient Name: RHONDA WISEMAN : 1955 (70y ) Study Date: 03/01/2025 8:39:58 AM Sex: F Tech: TT Location: [facility] Ref Provider: AVRIL MIMS Quality: Adequate Order [...] Other specified soft tissue disorders. FINDINGS: Performing Tungsten Refiner: Adebayo Hess RVT. Left: Venous Doppler signals [...] above. Electronically Signed By: Reuben Winn MD [facility] 03/01/2025 10:04:41 AM CDT us Avril Mims MD IMG US PROCEDURES Fi [...] agrees with it. Electronically signed by: Savita Oritz MD Narrative 02/03/2025 11:49 AM CDT EXAMINATION: [...] IMG MRI PROCEDURES F inal Result * eGFR (01/18/2025 11:17 AM CDT) eGFR [...] 01/18/2025 11:35 AM CDT us Marychuy Loomis MECHANIC'S ASSISTANT LAB BLOOD ORDERABLES Jo marsh Result [facility] Department [place] [address] * Colonoscopy (08/22/2024 9:46 AM CDT) Anatomical Region Laterality Modality Other Narrative Procedure Note Darius Lindo MD - 08/22/2024 9:46 AM CDT [facility] END[facility] Patient Name: Rhonda Wiseman Procedure Date: 08/22/2024 9:46 AM Date of : 1955 Admit Type: Inpatient Age: 69 Gender: Female Attending MD: Darius Lindo M.D. Room: [facility] ENDOSCOPY ROOM 3 Note Status: Finalized [...] scope was passed under direct vision.The CF [id number] endoscope was introduced through the anus and advanced to the cecum, identified by appendiceal orifice and ileocecal valve. The bowel preparation used was GoLYTELY via split dose instruction. The quality of the bowel preparationwas evaluated using the BBPS (Jasper Bowel Preparation Scale) with scores of: Right [...] clip was successfully placed (MR conditional). Clip glue line operator: Nousco. There was no bleeding at the end [...] retrieved. Clip (MR conditional) was placed. Clip glue line operator: Nousco. - One 14 mm polyp in the [...] LAB BLOOD ORDERABLES Final Result [facility] Department [place] [address] * (ABNORMAL) Lipid panel (08/19/2024 11:58 PM [...] 2017. Triglycerides 99 <=149 mg/dL [facility] Comment: Interpretive Data Ages < or = [...] revised on 2017. HDL 30(L) >=40 mg/dL [facility] Comment: Interpretive Data Ages < [...] LDL, calculated 42 <=129 mg/dL [facility] Comment: Interpretive Data Ages < [...] 2023. Non-HDL Cholesterol 61 mg/dL [facility] Comment: Interpretive Data Ages < [...] last revised on 2017. Chol/HDL ratio 3 [facility] Blood 08/19/2024 11:5 8 PM CDT 08/20/2024 12:26 AM CDT Narrative [facility] - 08/20/2024 8:24 AM CDT reflex us Avril Mims MD LAB BLOOD ORDERABLES Final Result [facility] Department [place] [address] * DIAGNOSTIC MAMMOGRAM BILATERAL W HAROON (08/01/2024 [...] RIGHT breast was performed by a trained shift mechanic and by Dr. Hampton . BREAST PARENCHYMAL [...] RIGHT breast was performed by a trained shift mechanic and by Dr. Hampton . BREAST PARENCHYMAL [...] Most Recently Relevant to Health Maintenance Insurance [facility] MEDICARE [facility] MEDICARE [place] Advance Directives For more information, please contact: [phone] * Full Code (Latest Code Status on File) Date Activated Date Inactivated Comments 08/19/2024 1:31 PM 08/22/2024 6:55 PM * Full Code Date Activated Date Inactivated Comments 10/23/2023 7:57 AM 10/23/2023 1:38 PM Care Teams Ammonia Box Tender Relationship Specialty Start Date End Date Andrea Chandler MD PCP - General Internal Medicine 03/31/23
--- OUTSIDE RECORDS SUMMARY | 2025-05-02 11:08 | XMS_ITS | Clinical Summary ---
Author Organization [facility] Address [address] [address] Phone Care Team Providers Care Junior Linux Systems Administrator Name Role Phone ShawnEmery squires Marian GRIFFIN Primary Care Provider [phone] Allergies No known active allergies Medications metFORMIN [...] on file Legal Sex Female 10:16 AM MIXER ATTENDANT Gender Identity Not on file Sexual [...] complete this topic Human Papillomavirus (HPV) Immunization (No Doses Required) Completed Meningococcal Immunization (ACWY) Aged Out No longer eligible based on patient's age to complete this topic Rotavirus Immunization Aged Out No lo nger eligible based on patient's age to complete this topic Procedures Procedure Name Priority Date/Time Associated Diagnosis Comments CT CHEST W/O CONTRAST Routine 04/13/2019 9:22 AM MIXER ATTENDANT Lung nodule < 6cm on CT from Last 3 Months or Most Recently Relevant to Health Maintenance Results * CT CHEST W/O CONTRAST (04/13/2019 9:22 AM MIXER ATTENDANT) Anatomical Region Laterality Modality Chest N/A Computed Tomogra phy 04/13/2019 9:40 AM MIXER ATTENDANT Impressions 04/13/2019 9:43 AM MIXER ATTENDANT IMPRESSION: 1. A 5 mm ground-glass nodule [...] as described above. Narrative 04/13/2019 9:43 AM MIXER ATTENDANT EXAM DESCRIPTION: CT CHEST W/O CONTRAST REASON [...] Rojelio Yun M.D. RL: DEVIN Report ID: [id number] Reading Location: [id number] Procedure Note Rojelio Yun MD - 04/13/2019 [...] Rojelio Yun M.D. RL: DEVIN Report ID: [id number] Reading Location: [id number] IMPRESSION: 1. A 5 mm ground-glass nodule [...] Insurance MEDICAID BLUE CROSS [place] Care Teams Junior Linux Systems Administrator Relationship Specialty Start Date End Date Emery Higgins DO [address] [place] [address] PCP - General Internal Medicine 07/13/18
--- OUTSIDE RECORDS SUMMARY | 2025-05-02 11:08 | XMS_ITS ---
Author Organization [facility] [address] Address [address] [place] [address] Care Team Providers Care Trial Mgr Name Role Phone Andrea Chandler MD Primary Care Provider [phone] Active Problems Problem Noted Date Diagnosed Date [...] Plans DOXOrubicin (ADRIAMYCIN) 21 Day Cycles - INDEX CLERK* Plan Start Date:01/12/2025 Plan Provider:Quynh Mims MD Linked Problems Endometrial cancer Treatment Medications Current Day (Day 1 , Cycle 6 - Planned for 05/05/2025) Next Day (Day 1, Cycle 7 - Planned for 05/26/2025) DOXOrubicin (ADRIAMYCIN)DOXOrubicin (ADRIAMYCIN) 2 mg/mL DOXOrubicin (ADRIAMYCIN) [...] DOXOrubicin Liposomal (DOXIL) 28 Day Cycles - INDEX CLERK 5 01/12/2025 DOXOrubicin liposomal (LIPODOX)LIPOSOMA L DOXOrubicin (DOXIL) IVPB in 250 mL Toxicity/Comp lication Quynh Mims MD 1 of 6 cycles started Pembrolizumab 21 Day Cycles - INDEX CLERK (Carbo Completed) 023 01/10/2025 CARBOplatin (PARAPLATIN) IVPB in 250 mL (by AUC: GOG)PACLItaxel (TAXOL) IVPB in 500 mLpembrolizumab (KEYTRUDA)pembrol izumab (KEYTRUDA) IVPB in 100 mL Therapy Complete Quynh Mims MD 27 of 35 cycles completed Lifetime Dose Tracking * Chemical Lifetime Dose Automatic Entry Manual Entr y doxorubicin 302.54 mg/m2 (579 mg) 302.54 mg/m2 (579 m g) 0 mg/m2 (0 mg) Fluoro Time 0.4 minutes 0.4 minutes 0 minutes doxorubicin HCl pegylated liposomal 39.378 mg/m2 (76 mg) 39.378 mg/m2 (76 mg) 0 mg/m2 (0 mg) doxorubicin isotoxic equivalent (Please manually verify calculation) 341.918 mg/m2 (655 mg) 341.918 mg/m2 (655 mg) 0 mg/m2 (0 mg) Air kerma at the reference point (Ka,r) 1 mGy 1 mGy 0 mGy DLP 5,156 mGycm 5,156 mGycm 0 mGycm
--- OUTSIDE RECORDS SUMMARY | 2025-05-02 11:08 | XMS_ITS | Clinical Summary ---
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
[2025-05-02 11:16] LABS: Alanine Aminotransferase 13 U/L (6-35); Albumin Level 3.6 g/dL (3.5-5.1); Alkaline Phosphatase 68 U/L (38-126); Anion Gap 7 mmol/L (4-12); Aspartate Amino Transferase 21 U/L (14-36); Bilirubin,Total 0.1 mg/dL (0.2-1.3); Blood Urea Nitrogen 13 mg/dL (7-17); Calcium 8.7 mg/dL (8.4-10.2); Carbon Dioxide 26 mmol/L (22-30); Chloride 107 mmol/L (98-107); Estimated Glomerular Filt Rate > 60; Glucose 248 mg/dL (65-110); Magnesium 1.6 mg/dL (1.6-2.3); Osmolality Calculated 298 mOsm/kg (285-295); Potassium 4.0 mmol/L (3.4-5.0); Sodium 140 mmol/L (137-145); Total Protein 5.7 g/dL (6.3-8.2)
== END 2025-05-02 10:28 | disposition home or self-care (01) ==
PROVIDERS: PCP Internal Medicine
DX: C54.1 Malignant neoplasm of endometrium (principal)
CPT/HCPCS: 36415; 80053; 83735; 85025; 86304